=== PATIENT | female | born 1980 | race African-American/Black ===

== ENCOUNTER 2018-08-12 15:16 | Inpatient (IN) | payer OTHER ==
[2018-08-12] MEDS ORDERED: SODIUM CHLORIDE 0.9% 1000 ML INFUS.BAG IV ONE (16:43)
[2018-08-12] MEDS ORDERED: ACETAMINOPHEN 1000 MG/100 ML VIAL (NON FORMULARY) IVPB ONE (16:43)
[2018-08-12] MEDS ORDERED: ALBUTEROL SO4 2.5/IPRATROPIUM 0.5 INH SOL 3 ML VIAL.NEB. NEB ONE ×3 (16:44→17:01)
[2018-08-12] MEDS ORDERED: ACETAMINOPHEN INJECTION 100 ML IVPB ONE (16:54)
[2018-08-12 17:58] LABS: BASO % 0.6 % (0-2.0); EOS % 0.1 % (0-4.5); HEMATOCRIT 31.8 % (32.4-45.2); HEMOGLOBIN 10.7 GM/dL (10.7-15.3); LYMPH % 15.9 % (8-40); MCH 26.5 pg (25.7-33.7); MCHC 33.7 g/dl (32.0-36.0); MEAN CELL VOLUME 78.6 fl (80-96); MEAN PLT VOLUME 7.9 fl (7.5-11.1); MONO % 21.1 % (3.8-10.2); NEUT % 62.3 % (42.8-82.8); PLATELET COUNT 356 K/MM3 (134-434); RBC 4.04 M/mm3 (3.60-5.2); RDW 25.5 % (11.6-15.6); WHITE BLOOD COUNT 6.5 K/mm3 (4.0-10.0)
[2018-08-12 18:11] LABS: INR 1.22 (0.83-1.09); PROTHROMBIN TIME (PATIENT) 14.4 SEC (9.7-13.0)
[2018-08-12] MEDS ORDERED: METOCLOPRAMIDE HCL INJECTION 10 MG/2 ML VIAL IVPB ONE (18:13)
[2018-08-12 18:14] LABS: ACTIVATED PTT 29.6 SECONDS (25.2-36.5)
[2018-08-12] MEDS ORDERED: METOCLOPRAMIDE HCL INJECTION 10 MG/2 ML VIAL ONE (18:15)
--- NOTE | 2018-08-12 18:18 | PDOC ---
History of Present Illness - General Chief Complaint: Shortness of Breath Stated Complaint: Shortness of Breath Time Seen by Provider: 08/12/18 16:43 History Source: Patient, Snf Records Exam Limitations: No Limitations - History of Present Illness Initial Comments: 08/12/18 18:15 The patient is a 37F with a PMH of hodgkins lymphoma (currently on chemo and s/ p BMT) who presents to the ER with 3 days of shortness of breath. She states that the shortness of breath started 3 days ago and has worsened to her presentation today. The patient states that she's had intermittent chills for 3 days. She denies a cough. She also admits to a headache which she describes as sharp, behind her R eye, worse with bright lights. She denies nausea, vomiting, CP, abdominal pain, dysuria, rashes, or swelling. Past History - Past Medical History Allergies/Adverse Reactions: Allergies Allergy/AdvReac Type Severity Reaction Status Date / Time bleomycin Allergy Verified 08/12/18 16:26 nut - unspecified Allergy Verified 08/12/18 16:27 peanut Allergy Verified 08/12/18 16:27 rivaroxaban Allergy Verified 08/12/18 16:27 Home Medications: Ambulatory Orders Gabapentin Liquid [Neurontin Oral Liquid -] 250 mg PEG TID 08/12/18 Lidocaine 5% Top. Ointment [Xylocaine 5% Top. Ointment -] 1 applic TP BID Loperamide HCl [Imodium A-D] 2 mg PEG DAILY 08/12/18 Potassium Chloride [Klor-Con] 20 meq GT DAILY 08/12/18 Ruxolitinib Phosphate [Jakafi] 5 mg GT BID 08/12/18 levETIRAcetam [levETIRAcetam ORAL SUSPENSION] 500 mg GT BID 08/12/18 Dexamethasone Liquid - [Decadron Liquid -] 0.5 mg PO DAILY ml 08/30/18 Guaifenesin Dm [Robitussin Dm -] 10 ml PO Q6H PRN cup 08/30/18 Insulin Sliding Scale [Novolog Vial Sliding Scale -] 1 vial SQ ACHS units 08/30 Metoprolol Tartrate [Lopressor -] 25 mg PO BID tablet 08/30/18 Naph,Mb-Db/K pH,Mbdb [PHOS-NaK PACKET -] 1 packet PO BID pow 08/30/18 Polyvinyl Alcohol [Artificial Tears] 1 drop OU Q6H PRN drops 08/30/18 Albuterol 0.083% Nebulizer Stephanie [Ventolin 0.083% Nebulizer Soln -] 1 amp NEB Q6H PRN amp 09/06/18 Amino Acids/Protein Hydrolys [Prosource No Carb Liquid Pkt] 30 ml PO BID@0800, 1730 packet 09/06/18 Lidocaine 5% Patch [Lidoderm -] 1 patch TP DAILY patch 09/06/18 Nitroglycerin Sublingual [Nitrostat -] 0.4 mg SL Q5M PRN tab 09/06/18 Warfarin Na [Coumadin -] 2.5 mg PO SUMOWEFRSA tablet 09/06/18 Warfarin Na [Coumadin -] 5 mg PO TUTH tablet 09/06/18 oxyCODONE HCL [Roxicodone -] 5 mg PO Q6H PRN #120 tablet MDD 4 09/06/18 Cancer: Yes (hodkin lymphoma) Cardiac Disorders: Yes (afib) CVA: Yes (hemiplegia/hemiparesis) COPD: No Psychiatric Problems: Yes (depression) - Suicide/Smoking/Psychosocial Hx Smoking History: Never smoked Have you smoked in the past 12 months: No Information on smoking cessation initiated: No Hx Alcohol Use: No Drug/Substance Use Hx: No Review of Systems - Review of Systems Able to Perform ROS?: Yes Comments:: 08/12/18 19:04 GENERAL/CONSTITUTIONAL: Positive for chills. No fever. No weakness. HEAD, EYES, EARS, NOSE AND THROAT: No change in vision. No ear pain or discharge. No sore throat. CARDIOVASCULAR: No chest pain, palpitations, or lightheadedness. RESPIRATORY: Positive for shortness of breath. No cough, wheezing, or hemoptysis. GASTROINTESTINAL: No nausea, vomiting, diarrhea, constipation, or abdominal pain. GENITOURINARY: No dysuria, frequency, hematuria, or change in urination. MUSCULOSKELETAL: No joint or muscle swelling or pain. No neck or back pain. SKIN: No rash or lesions. NEUROLOGIC: No headache, numbness, tingling, focal weakness, loss of consciousness, or change in strength/sensation. Is the patient limited [place] proficient: No *Physical Exam - Vital Signs Last Vital Signs Temp Pulse Resp BP Pulse Ox 101.9 F H 136 H 18 105/80 100 08/12/18 15:30 08/12/18 15:30 08/12/18 15:30 08/12/18 15:30 08/12/18 15:30 - Physical Exam Comments: 08/12/18 19:06 GENERAL: Well developed, well nourished. Awake and alert. No acute distress. Thin, ill-appearing. HEENT: Normocephalic, atraumatic. Hearing grossly normal. Moist mucous membranes. PERRLA, EOMI. No conjunctival pallor. NECK: Supple. Full ROM. No JVD. Carotid pulses 2+ and symmetric, without bruits. No thyromegaly. No lymphadenopathy. CARDIOVASCULAR: Regular rate and rhythm. No murmurs, rubs, or gallops. Distal pulses are 2+ and symmetric. PULMONARY: Mild respiratory distress. Lungs have diffuse coarse breath sounds. ABDOMINAL: Soft. Non-tender. Non-distended. No rebound or guarding. GENITOURINARY: No CVA tenderness bilaterally. MUSCULOSKELETAL: Normal range of motion at all joints. No bony deformities or tenderness. EXTREMITIES: No cyanosis. No clubbing. No edema. No calf tenderness or swelling. SKIN: Warm and dry. Normal capillary refill. No rashes. No jaundice. NEUROLOGICAL: Alert, awake, appropriate. Cranial nerves 2-12 grossly intact. Normal speech. PSYCHIATRIC: Cooperative. Good eye contact. Appropriate mood and affect. Moderate Sedation - Procedure Monitoring Vital Signs: Procedure Monitoring Vital Signs Temperature 101.9 F H 08/12/18 15:30 Pulse Rate 136 H 08/12/18 15:30 Respiratory Rate 18 08/12/18 15:30 Blood Pressure 105/80 08/12/18 15:30 O2 Sat by Pulse Oximetry (%) 100 08/12/18 15:30 Heart Score/ECG Review #1 General ECG Interpretation: Sinus Rhythm, Normal Intervals, No acute ischemic changes Compared to previous ECG there are: Previous ECG unavail 08/12/18 19:09 Sinus tach vent rate 125 HI 172 QRS 68 QTc 413 No STD or ADEOAL No signs of acute ischemia No priors ED Treatment Course - LABORATORY CBC & Chemistry Diagram: 09/11/18 06:30 09/06/18 05:40 - ADDITIONAL ORDERS Additional order review: Laboratory Results 08/12/18 08/12/1808/12/19 17:40 17:40 17:40 PT with INR INR PTT (Actin FS) VBG pH POC VBG pCO2 POC VBG pO2 Mixed VBG HCO3 Sodium Cancelled Potassium Cancelled Chloride Cancelled Carbon Dioxide Cancelled Anion Gap Cancelled BUN Cancelled Creatinine Cancelled Creat Clearance w eGFR Cancelled Random Glucose Cancelled Calcium Cancelled Total Bilirubin Cancelled AST Cancelled ALT Cancelled Alkaline Phosphatase Cancelled Troponin I Cancelled Cancelled Total Protein Cancelled Albumin Cancelled Serum , Qual Cancelled 08/12/18 08/12/18 17:40 17:40 PT with INR 14.40 H INR 1.22 H PTT (Actin FS) 29.6 VBG pH Cancelled POC VBG pCO2 Cancelled POC VBG pO2 Cancelled Mixed VBG HCO3 Cancelled Sodium Potassium Chloride Carbon Dioxide Anion Gap BUN Creatinine Creat Clearance w eGFR Random Glucose Calcium Total Bilirubin AST ALT Alkaline Phosphatase Troponin I Total Protein Albumin Serum , Qual 08/12/18 17:40 RBC 4.04 MCV 78.6 L MCHC 33.7 RDW 25.5 H MPV 7.9 Neutrophils % 62.3 Lymphocytes % 15.9 Monocytes % 21.1 H Eosinophils % 0.1 Basophils % 0.6 - RADIOLOGY Radiology Studies Ordered: Category Date Time Status CHEST X-RAY PORTABLE* [RAD] Stat Radiology 08/12/18 16:43 Ordered - Medications Given in the ED: ED Medications Discontinued Medications Generic Name Dose Route Start Last Admin Trade Name Freq PRN Reason Stop Dose Admin Acetaminophen 1,000 mg 08/12/18 16:43 08/12/18 17:37 Ofirmev Injection - IVPB 08/12/18 16:44 1,000 mg ONCE ONE Administration Albuterol/Ipratropium 3 amp 08/12/18 16:44 08/12/18 17:00 Duoneb - NEB 08/12/18 16:45 3 amp ONCE ONE Administration Sodium Chloride 1,000 ml 08/12/18 16:43 08/12/18 17:37 Normal Saline - IV 08/12/18 16:44 1,000 ml ONCE ONE Administration Medical Decision Making - Medical Decision Making 08/12/18 19:09 The patient is a 37F with a PMH of hodgkins lymphoma, currently on chemo and is s/p BMT who presents to the ER with 3 days of worsening SOB with chills. Concern for PNA. Also concern for PE as pt is in a hypercoagulable state with a subtherapuetic INR. Possible (but low likelihood) of meningitis but pt has supple neck with full ROM but does complain of a h/a. Pt is not urinating and refuses catheterization. Will cover with broad spectrum abx, give fluids, tylenol for fever and headache, and reglan for headache. CBC WNL. EKG unremarkable. Pending CMP, trop. Pt signed out to Dr. Fermin for further evaluation. *DC/Admit/Observation/Transfer Diagnosis at time of Disposition: Influenza A - Discharge Dispostion Condition at time of disposition: Stable - Referrals - Patient Instructions - Post Discharge Activity
[2018-08-12 18:20] LABS: ARTERIAL BLD GAS O2 SATURATION 98.3 % (90-98.9); ARTERIAL BLOOD GAS BASE EXCESS -0.1 meq/l (-2-2); ARTERIAL BLOOD GAS PCO2 40.4 mmHg (35-45); CARBOXYHEMOGLOBIN 0.8 gm% (0.5-2.0)
[2018-08-12 18:22] LABS: ALLENS TEST POSITIVE
[2018-08-12] MEDS ORDERED: VANCOMYCIN 1,000 MG in DEXTROSE 5%-WATER - 250 ML IVPB ONE (18:48)
[2018-08-12] MEDS ORDERED: PIPERACILLIN/TAZOB 4.5 GM 4.5 GM in DEXTROSE 5%-WATER 100 ML IVPB ONE (18:48)
[2018-08-12] MEDS ORDERED: PIPERACILLIN/TAZOB 4.5 GM 4.5 GM/100 ML BAG IVPB ONE (18:59)
[2018-08-12] MEDS ORDERED: VANCOMYCIN 1 GRAM (PRE-DOCKED) 1,000 MG/250 ML BAG IVPB ONE (18:59)
[2018-08-12 19:01] LABS: ANISOCYTOSIS 2+; TARGET CELLS 1+
--- NOTE | 2018-08-12 19:43 | PDOC ---
Attending Attestation - Resident Resident Name: Manuel Lobo - ED Attending Attestation I have performed the following: I have examined & evaluated the patient, The case was reviewed & discussed with the resident, I agree w/resident's findings & plan, Exceptions are as noted - HPI HPI: 08/12/18 19:41 The patient is a 37 year old female, [facility] resident, with a significant PMH of hodgkins lymphoma, BMT, CVA (on coumadin), who presents to the emergency department with 3 days of worsening SOB. Pt states she has felt sick with fevers and poor appetite for 3 days as well. States she has been compliant with her medications. The patient denies chest pain, cough, headache and dizziness. Denies nausea, vomit, diarrhea and constipation. Denies dysuria, frequency, urgency and hematuria. Allergies: bleomycin, nut, peanut, rivaroxaban Social history: None reported PCP: Dr. Floyd - Physicial Exam PE: 08/12/18 19:42 GENERAL: Awake, alert, and fully oriented, in no acute distress. Non toxic. EYES: PERRLA, EOMI, sclera anicteric, conjunctiva clear ENT: Auricles normal inspection, hearing grossly normal, nares patent, oropharynx clear without exudates. Moist mucosa NECK: Normal ROM, supple, no lymphadenopathy, JVD, or masses LUNGS: Breath sounds equal, course BS b/l. No wheezes, and no crackles HEART: Regular rate and rhythm, normal S1 and S2, no murmurs, rubs or gallops ABDOMEN: Soft, nontender, normoactive bowel sounds. No guarding, no rebound. No masses EXTREMITIES: Normal range of motion, no edema. No cords, erythema, or tenderness NEUROLOGICAL: Normal speech, cranial nerves intact, equal strength and sensation b/l SKIN: Warm, Dry, normal turgor, no rashes or lesions noted. - Medical Decision Making 08/12/18 23:39 37yo F with MMP including lymphoma, BMT presents to the ED from [place] with SOB, fever, tachycardia. Flu+, pt given tamiflu. INR found to be subtherapeutic, CTA was obtained to r/o PE, neg for PE but showed infiltrates. Pt was covered empirically and admitted for further mgmt. Heart Score/ECG Review #1 02/22/19 19:43 Twelve-lead EKG was performed and reviewed by me. Sinus tachycardia, rate 122. Normal axis. No ST elevations.
[2018-08-12 19:50] LABS: MAGNESIUM 1.6 mg/dL (1.8-2.4)
[2018-08-12] MEDS ORDERED: OSELTAMIVIR PHOSPHATE 75 MG CAPSULE PO ONE (20:15)
[2018-08-12] MEDS ORDERED: OSELTAMIVIR PHOSPHATE 75 MG CAPSULE ONE (20:32)
--- NOTE | 2018-08-12 20:37 | PDOC ---
*Physical Exam - Vital Signs Last Vital Signs Temp Pulse Resp BP Pulse Ox 101.4 F H 111 H 18 143/97 96 08/13/18 01:00 08/13/18 01:00 08/13/18 01:00 08/13/18 01:00 08/13/18 01:00 <Norma Luong - Last Filed: 08/13/18 01:15> - Vital Signs Last Vital Signs Temp Pulse Resp BP Pulse Ox 101.9 F H 114 H 18 98/58 L 96 08/12/18 15:30 08/12/18 20:29 08/12/18 20:29 08/12/18 20:29 08/12/18 20:29 <Carlos Fermin - Last Filed: 08/13/18 05:48> ED Treatment Course - LABORATORY CBC & Chemistry Diagram: 08/12/18 17:40 08/12/18 20:44 - ADDITIONAL ORDERS Additional order review: Laboratory Results 08/12/18 08/12/18 08/12/18 20:44 19:41 18:46 PT with INR INR PTT (Actin FS) Anticoagulation Therapy Puncture Site ABG pH ABG pCO2 at Pt Temp ABG pO2 at Pt Temp ABG HCO3 ABG O2 Sat (Measured) ABG O2 Content ABG Base Excess Regis Test VBG pH POC VBG pCO2 POC VBG pO2 Mixed VBG HCO3 Carboxyhemoglobin Methemoglobin O2 Delivery Device Oxygen Flow Rate Vent Mode Vent Rate Mechanical Rate Pressure Support Vent Sodium 136 Potassium 3.5 Chloride 102 Carbon Dioxide 24 Anion Gap 11 BUN 19 H Creatinine 0.2 L Creat Clearance w eGFR > 60 Random Glucose 128 H Lactic Acid Calcium 8.2 L Magnesium 1.6 L Total Bilirubin 0.6 AST 42 H ALT 50 Alkaline Phosphatase 243 H Creatine Kinase 14 L Troponin I < 0.02 B-Natriuretic Peptide 570.0 H Total Protein 6.1 L Albumin 3.2 L Serum , Qual 08/12/18 08/12/18 08/12/18 18:46 18:10 17:40 PT with INR INR PTT (Actin FS) Anticoagulation Therapy No Result Required. Puncture Site Right radial ABG pH 7.40 ABG pCO2 at Pt Temp 40.4 ABG pO2 at Pt Temp 114.0 H ABG HCO3 24.2 ABG O2 Sat (Measured) 98.3 ABG O2 Content 12.0 L ABG Base Excess -0.1 Regis Test Positive VBG pH POC VBG pCO2 POC VBG pO2 Mixed VBG HCO3 Carboxyhemoglobin 0.8 Methemoglobin 0.7 O2 Delivery Device Nasal cannula Oxygen Flow Rate 2l Vent Mode No Result Required. Vent Rate No Result Required. Mechanical Rate No Result Required. Pressure Support Vent No Result Required. Sodium Potassium Chloride Carbon Dioxide Anion Gap BUN Creatinine Creat Clearance w eGFR Random Glucose Lactic Acid Calcium Magnesium Total Bilirubin AST ALT Alkaline Phosphatase Creatine Kinase Troponin I Cancelled B-Natriuretic Peptide Total Protein Albumin Serum , Qual Negative 08/12/18 08/12/18 08/12/18 17:40 17:40 17:40 PT with INR INR PTT (Actin FS) Anticoagulation Therapy Puncture Site ABG pH ABG pCO2 at Pt Temp ABG pO2 at Pt Temp ABG HCO3 ABG O2 Sat (Measured) ABG O2 Content ABG Base Excess Regis Test VBG pH POC VBG pCO2 POC VBG pO2 Mixed VBG HCO3 Carboxyhemoglobin Methemoglobin O2 Delivery Device Oxygen Flow Rate Vent Mode Vent Rate Mechanical Rate Pressure Support Vent Sodium Cancelled Potassium Cancelled Chloride Cancelled Carbon Dioxide Cancelled Anion Gap Cancelled BUN Cancelled Creatinine Cancelled Creat Clearance w eGFR Cancelled Random Glucose Cancelled Lactic Acid 1.2 Calcium Cancelled Magnesium Total Bilirubin Cancelled AST Cancelled ALT Cancelled Alkaline Phosphatase Cancelled Creatine Kinase Troponin I Cancelled B-Natriuretic Peptide Total Protein Cancelled Albumin Cancelled Serum , Qual Cancelled 08/12/18 08/12/18 17:40 17:40 PT with INR 14.40 H INR 1.22 H PTT (Actin FS) 29.6 Anticoagulation Therapy Puncture Site ABG pH ABG pCO2 at Pt Temp ABG pO2 at Pt Temp ABG HCO3 ABG O2 Sat (Measured) ABG O2 Content ABG Base Excess Regis Test VBG pH Cancelled POC VBG pCO2 Cancelled POC VBG pO2 Cancelled Mixed VBG HCO3 Cancelled Carboxyhemoglobin Methemoglobin O2 Delivery Device Oxygen Flow Rate Vent Mode Vent Rate Mechanical Rate Pressure Support Vent Sodium Potassium Chloride Carbon Dioxide Anion Gap BUN Creatinine Creat Clearance w eGFR Random Glucose Lactic Acid Calcium Magnesium Total Bilirubin AST ALT Alkaline Phosphatase Creatine Kinase Troponin I B-Natriuretic Peptide Total Protein Albumin Serum , Qual 08/12/18 17:40 RBC 4.04 MCV 78.6 L MCHC 33.7 RDW 25.5 H MPV 7.9 Neutrophils % 62.3 Lymphocytes % 15.9 Monocytes % 21.1 H Eosinophils % 0.1 Basophils % 0.6 - Medications Given in the ED: ED Medications Discontinued Medications Generic Name Dose Route Start Last Admin Trade Name Mounika PRN Reason Stop Dose Admin Acetaminophen 1,000 mg 08/12/18 16:43 08/12/18 17:37 Ofirmev Injection - IVPB 08/12/18 16:44 1,000 mg ONCE ONE Administration Acetaminophen 650 mg 08/13/18 00:44 08/13/18 00:59 Tylenol - PO 08/13/18 00:45 650 mg ONCE ONE Administration Albuterol/Ipratropium 3 amp 08/12/18 16:44 08/12/18 17:00 Duoneb - NEB 08/12/18 16:45 3 amp ONCE ONE Administration Vancomycin HCl 1,000 mg/ 250 mls @ 250 mls/hr 08/12/18 18:48 08/12/18 20:28 Dextrose IVPB 08/12/18 19:47 250 mls/hr ONCE ONE Administration Protocol Piperacillin Sod/Tazobactam 100 mls @ 200 mls/hr 08/12/18 18:48 08/12/18 19: 57 Sod 4.5 gm/ Dextrose IVPB 08/12/18 19:17 200 mls/hr ONCE ONE Administration Protocol Metoclopramide HCl 10 mg 08/12/18 18:13 08/12/18 18:25 Reglan Injection - IVPB 08/12/18 18:14 10 mg ONCE ONE Administration Oseltamivir Phosphate 75 mg 08/12/18 20:15 08/12/18 20:48 Tamiflu - PO 08/12/18 20:16 75 mg ONCE ONE Administration Sodium Chloride 1,000 ml 08/12/18 16:43 08/12/18 17:37 Normal Saline - IV 08/12/18 16:44 1,000 ml ONCE ONE Administration <Norma Luong - Last Filed: 08/13/18 01:15> - LABORATORY CBC & Chemistry Diagram: 08/12/18 17:40 08/12/18 20:44 - ADDITIONAL ORDERS Additional order review: Laboratory Results 08/12/18 08/12/18 08/12/18 19:41 18:46 18:46 PT with INR INR PTT (Actin FS) Anticoagulation Therapy Puncture Site ABG pH ABG pCO2 at Pt Temp ABG pO2 at Pt Temp ABG HCO3 ABG O2 Sat (Measured) ABG O2 Content ABG Base Excess Regis Test VBG pH POC VBG pCO2 POC VBG pO2 Mixed VBG HCO3 Carboxyhemoglobin Methemoglobin O2 Delivery Device Oxygen Flow Rate Vent Mode Vent Rate Mechanical Rate Pressure Support Vent Sodium Potassium Chloride Carbon Dioxide Anion Gap BUN Creatinine Creat Clearance w eGFR Random Glucose Lactic Acid Calcium Magnesium 1.6 L Total Bilirubin AST ALT Alkaline Phosphatase Creatine Kinase 14 L Troponin I < 0.02 B-Natriuretic Peptide 570.0 H Total Protein Albumin Serum , Qual Negative 08/12/18 08/12/18 08/12/18 18:10 17:40 17:40 PT with INR INR PTT (Actin FS) Anticoagulation Therapy No Result Required. Puncture Site Right radial ABG pH 7.40 ABG pCO2 at Pt Temp 40.4 ABG pO2 at Pt Temp 114.0 H ABG HCO3 24.2 ABG O2 Sat (Measured) 98.3 ABG O2 Content 12.0 L ABG Base Excess -0.1 Regis Test Positive VBG pH POC VBG pCO2 POC VBG pO2 Mixed VBG HCO3 Carboxyhemoglobin 0.8 Methemoglobin 0.7 O2 Delivery Device Nasal cannula Oxygen Flow Rate 2l Vent Mode No Result Required. Vent Rate No Result Required. Mechanical Rate No Result Required. Pressure Support Vent No Result Required. Sodium Potassium Chloride Carbon Dioxide Anion Gap BUN Creatinine Creat Clearance w eGFR Random Glucose Lactic Acid Calcium Magnesium Total Bilirubin AST ALT Alkaline Phosphatase Creatine Kinase Troponin I Cancelled B-Natriuretic Peptide Total Protein Albumin Serum , Qual Cancelled 08/12/18 08/12/18 08/12/18 17:40 17:40 17:40 PT with INR INR PTT (Actin FS) Anticoagulation Therapy Puncture Site ABG pH ABG pCO2 at Pt Temp ABG pO2 at Pt Temp ABG HCO3 ABG O2 Sat (Measured) ABG O2 Content ABG Base Excess Regis Test VBG pH Cancelled POC VBG pCO2 Cancelled POC VBG pO2 Cancelled Mixed VBG HCO3 Cancelled Carboxyhemoglobin Methemoglobin O2 Delivery Device Oxygen Flow Rate Vent Mode Vent Rate Mechanical Rate Pressure Support Vent Sodium Cancelled Potassium Cancelled Chloride Cancelled Carbon Dioxide Cancelled Anion Gap Cancelled BUN Cancelled Creatinine Cancelled Creat Clearance w eGFR Cancelled Random Glucose Cancelled Lactic Acid 1.2 Calcium Cancelled Magnesium Total Bilirubin Cancelled AST Cancelled ALT Cancelled Alkaline Phosphatase Cancelled Creatine Kinase Troponin I Cancelled B-Natriuretic Peptide Total Protein Cancelled Albumin Cancelled Serum , Qual 08/12/18 17:40 PT with INR 14.40 H INR 1.22 H PTT (Actin FS) 29.6 Anticoagulation Therapy Puncture Site ABG pH ABG pCO2 at Pt Temp ABG pO2 at Pt Temp ABG HCO3 ABG O2 Sat (Measured) ABG O2 Content ABG Base Excess Regis Test VBG pH POC VBG pCO2 POC VBG pO2 Mixed VBG HCO3 Carboxyhemoglobin Methemoglobin O2 Delivery Device Oxygen Flow Rate Vent Mode Vent Rate Mechanical Rate Pressure Support Vent Sodium Potassium Chloride Carbon Dioxide Anion Gap BUN Creatinine Creat Clearance w eGFR Random Glucose Lactic Acid Calcium Magnesium Total Bilirubin AST ALT Alkaline Phosphatase Creatine Kinase Troponin I B-Natriuretic Peptide Total Protein Albumin Serum , Qual 08/12/18 17:40 RBC 4.04 MCV 78.6 L MCHC 33.7 RDW 25.5 H MPV 7.9 Neutrophils % 62.3 Lymphocytes % 15.9 Monocytes % 21.1 H Eosinophils % 0.1 Basophils % 0.6 - Medications Given in the ED: ED Medications Discontinued Medications Generic Name Dose Route Start Last Admin Trade Name Freq PRN Reason Stop Dose Admin Acetaminophen 1,000 mg 08/12/18 16:43 08/12/18 17:37 Ofirmev Injection - IVPB 08/12/18 16:44 1,000 mg ONCE ONE Administration Albuterol/Ipratropium 3 amp 08/12/18 16:44 08/12/18 17:00 Duoneb - NEB 08/12/18 16:45 3 amp ONCE ONE Administration Vancomycin HCl 1,000 mg/ 250 mls @ 250 mls/hr 08/12/18 18:48 08/12/18 20:28 Dextrose IVPB 08/12/18 19:47 250 mls/hr ONCE ONE Administration Protocol Piperacillin Sod/Tazobactam 100 mls @ 200 mls/hr 08/12/18 18:48 08/12/18 19: 57 Sod 4.5 gm/ Dextrose IVPB 08/12/18 19:17 200 mls/hr ONCE ONE Administration Protocol Metoclopramide HCl 10 mg 08/12/18 18:13 08/12/18 18:25 Reglan Injection - IVPB 08/12/18 18:14 10 mg ONCE ONE Administration Sodium Chloride 1,000 ml 08/12/18 16:43 08/12/18 17:37 Normal Saline - IV 08/12/18 16:44 1,000 ml ONCE ONE Administration <Carlos Fermin - Last Filed: 08/13/18 05:48> Medical Decision Making - Medical Decision Making 08/13/18 01:15 Patient Name: GIDEON MCKEON THIS IS A PRELIMINARY REPORT FROM IMAGING SCREED PERSON DATE OF SERVICE: 2018-08-12 23:11:25 IMAGES: [id number] EXAM: CTA CHEST No pulmonary embolism. No aortic dissection or aneurysm. No pneumonia or pleural effusions. Partial atelectasis lower lobes. Right internal jugular venous catheter tip in lower SVC. Percutaneous gastrostomy tube. Subcutaneous edema. Small cystic foci left kidney. <Norma Luong - Last Filed: 08/13/18 01:15> - Medical Decision Making Patient signed out to me from day team pending a CMP, a flu swab and a CTA. Flu swab came back positive for influenza A - Will start treatment with Tamiflu and admit patient. CTA showed no signs of PE. - Will admit patient for further care. <Carlos Fermin - Last Filed: 08/13/18 05:48> *DC/Admit/Observation/Transfer <Norma Luong - Last Filed: 08/13/18 01:15> - Discharge Dispostion Decision to Admit order: Yes <Carlos Fermin - Last Filed: 08/13/18 05:48> Diagnosis at time of Disposition: Influenza A - Discharge Dispostion Condition at time of disposition: Stable
[2018-08-12 21:09] LABS: ALBUMIN 3.2 g/dl (3.4-5.0); ALK PHOS 243 U/L (45-117); ANION GAP 11 MMOL/L (8-16); BILIRUBIN,TOTAL 0.6 mg/dL (0.2-1); BLOOD UREA NITROGEN 19 mg/dL (7-18); CALCIUM 8.2 mg/dL (8.5-10.1); CHLORIDE 102 mmol/L (98-107); CO2 24 mmol/L (21-32); CREATININE 0.2 mg/dL (0.55-1.3); GLUCOSE,RANDOM 128 mg/dL (74-106); POTASSIUM 3.5 mmol/L (3.5-5.1); SGOT/AST 42 U/L (15-37); SGPT/ALT 50 U/L (13-61); SODIUM 136 mmol/L (136-145); TOT PROT 6.1 g/dl (6.4-8.2)
[2018-08-12] MEDS ORDERED: AZITHROMYCIN IVPB 500 MG in DEXTROSE 5%-WATER - 250 ML IVPB ONE (23:39)
[2018-08-12] MEDS ORDERED: WARFARIN NA 2.5 MG TABLET (FP) PO SCH (23:45)
--- NOTE | 2018-08-12 23:59 | HP ---
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 She reports that her roommate was sick recently. Patient with new onset of cough , found to be productive with yellow sputum when I saw her. ER course was notable for: (1) chest CTA (2) vancomycin, zosyn (3) azithromycin Recent Travel: none PAST MEDICAL HISTORY: Hodgkins Lymphoma, CVA PAST SURGICAL HISTORY: BMT x2 Social History: Smoking: no Alcohol: no Drugs: no Family History: none reported Allergies bleomycin Allergy (Verified 08/12/18 16:26) nut - unspecified Allergy (Verified 08/12/18 16:27) peanut Allergy (Verified 08/12/18 16:27) rivaroxaban Allergy (Verified 08/12/18 16:27) HOME MEDICATIONS: Home Medications Medication Instructions Recorded Cholecalciferol (Vitamin D3) 5,000 unit PEG WEEKLY 08/12/18 [Vitamin D3] Dexamethasone [Decadron] 5 ml PO DAILY 08/12/18 Dextran/Hypromellose/Glycerin 1 drop OU TID 08/12/18 [Genteal Tears 0.1%-0.2%-0.3%] Erythromycin Oral Suspension 6.3 ml PEG TID 08/12/18 [Eryped Oral Suspension -] Famotidine 20 mg PEG BID 08/12/18 Gabapentin Liquid [Neurontin Oral 250 mg PEG TID 08/12/18 Liquid -] Hydrophilic Ointment [Dermafix] 1 applic TP BID 08/12/18 Lidocaine 5% Top. Ointment 1 applic TP BID 08/12/18 [Xylocaine 5% Top. Ointment] Loperamide HCl [Imodium A-D] 2 mg PEG DAILY 08/12/18 Potassium Chloride [Klor-Con] 20 meq GT DAILY 08/12/18 Ruxolitinib Phosphate [Jakafi] 5 mg GT BID 08/12/18 Warfarin Na [Coumadin] 2.5 mg PO ASDIR 08/12/18 Warfarin Sodium [Coumadin] 4 mg PO ASDIR 08/12/18 levETIRAcetam [levETIRAcetam ORAL 500 mg GT BID 08/12/18 SUSPENSION] REVIEW OF SYSTEMS CONSTITUTIONAL: Absent: weight change present- fever, chills, diaphoresis, generalized weakness, malaise, loss of appetite, HEENT: Absent: nasal congestion, throat pain, throat swelling, difficulty swallowing, mouth swelling, ear pain, eye pain, visual changes present- rhinorrhea, CARDIOVASCULAR: Absent: chest pain, syncope, palpitations, irregular heart rate, lightheadedness , peripheral edema RESPIRATORY: Absent: orthopnea, wheezing, stridor, hemoptysis present- cough, shortness of breath, dyspnea with exertion, GASTROINTESTINAL: Absent: abdominal pain, abdominal distension, nausea, vomiting, diarrhea, constipation, melena, hematochezia GENITOURINARY: Absent: dysuria, frequency, urgency, hesitancy, hematuria, flank pain, genital pain MUSCULOSKELETAL: Absent: myalgia, arthralgia, joint swelling, back pain, neck pain SKIN: Absent: rash, itching, pallor HEMATOLOGIC/IMMUNOLOGIC: Absent: easy bleeding, easy bruising, lymphadenopathy, frequent infections ENDOCRINE: Absent: unexplained weight gain, unexplained weight loss, heat intolerance, cold intolerance NEUROLOGIC: Absent: headache, focal weakness or paresthesias, dizziness, unsteady gait, seizure, mental status changes, bladder or bowel incontinence PSYCHIATRIC: Absent: anxiety, depression, suicidal or homicidal ideation, hallucinations. PHYSICAL EXAMINATION Vital Signs - 24 hr 08/12/18 08/12/18 15:30 20:29 Temperature 101.9 F H Pulse Rate 136 H Pulse Rate [ 114 H Apical] Respiratory 18 18 Rate Blood Pressure 105/80 Blood Pressure 98/58 L [Left Arm] O2 Sat by Pulse 100 96 Oximetry (%) GENERAL: Awake, alert, and fully oriented, in no acute distress. HEAD: Normal with no signs of trauma. EYES: Pupils equal, round and reactive to light, extraocular movements intact, sclera anicteric, conjunctiva clear. No lid lag. EARS, NOSE, THROAT: Ears normal, nares patent, oropharynx clear without exudates. + yellowish secretions present NECK: Normal range of motion, supple without lymphadenopathy, JVD, or masses, right sided IJ CVP - present for about one year LUNGS: coarse breath sounds, rales appreciated b/l HEART: Regular rate and rhythm, normal S1 and S2 without murmur, rub or gallop. ABDOMEN: Soft, nontender, not distended, normoactive bowel sounds, no guarding, no rebound, no masses. No hepatomegaly or splenomegaly. MUSCULOSKELETAL: Normal range of motion at all joints. No bony deformities or tenderness. No CVA tenderness. UPPER EXTREMITIES: 2+ pulses, warm, well-perfused. No cyanosis. No clubbing. No peripheral edema. LOWER EXTREMITIES: 2+ pulses, warm, well-perfused. No calf tenderness. No peripheral edema. NEUROLOGICAL: Cranial nerves II-XII intact. Normal speech. Normal gait. PSYCHIATRIC: Cooperative. Good eye contact. Appropriate mood and affect. SKIN: Warm, dry, normal turgor, no rashes or lesions noted, normal capillary refill. Laboratory Results - last 24 hr 08/12/18 08/12/18 08/12/18 17:40 17:40 17:40 WBC 6.5 RBC 4.04 Hgb 10.7 Hct 31.8 L MCV 78.6 L MCH 26.5 MCHC 33.7 RDW 25.5 H Plt Count 356 MPV 7.9 Absolute Neuts (auto) 4.1 Neutrophils % 62.3 Neutrophils % (Manual) 62.0 Band Neutrophils % 8.0 Lymphocytes % 15.9 Lymphocytes % (Manual) 9.0 Monocytes % 21.1 H Monocytes % (Manual) 16 H Eosinophils % 0.1 Eosinophils % (Manual) 0.0 Basophils % 0.6 Basophils % (Manual) 0.0 Nucleated RBC % 0 Anisocytosis 2+ Target Cells 1+ PT with INR 14.40 H INR 1.22 H PTT (Actin FS) 29.6 Anticoagulation Therapy Puncture Site ABG pH ABG pCO2 at Pt Temp ABG pO2 at Pt Temp ABG HCO3 ABG O2 Sat (Measured) ABG O2 Content ABG Base Excess Regis Test VBG pH Cancelled POC VBG pCO2 Cancelled POC VBG pO2 Cancelled Mixed VBG HCO3 Cancelled Carboxyhemoglobin Methemoglobin O2 Delivery Device Oxygen Flow Rate Vent Mode Vent Rate Mechanical Rate Pressure Support Vent Sodium Potassium Chloride Carbon Dioxide Anion Gap BUN Creatinine Creat Clearance w eGFR Random Glucose Lactic Acid Calcium Magnesium Total Bilirubin AST ALT Alkaline Phosphatase Creatine Kinase Troponin I B-Natriuretic Peptide Total Protein Albumin Serum , Qual Influenza A (Rapid) Influenza B (Rapid) 08/12/18 08/12/18 08/12/18 17:40 17:40 17:40 WBC RBC Hgb Hct MCV MCH MCHC RDW Plt Count MPV Absolute Neuts (auto) Neutrophils % Neutrophils % (Manual) Band Neutrophils % Lymphocytes % Lymphocytes % (Manual) Monocytes % Monocytes % (Manual) Eosinophils % Eosinophils % (Manual) Basophils % Basophils % (Manual) Nucleated RBC % Anisocytosis Target Cells PT with INR INR PTT (Actin FS) Anticoagulation Therapy Puncture Site ABG pH ABG pCO2 at Pt Temp ABG pO2 at Pt Temp ABG HCO3 ABG O2 Sat (Measured) ABG O2 Content ABG Base Excess Regis Test VBG pH POC VBG pCO2 POC VBG pO2 Mixed VBG HCO3 Carboxyhemoglobin Methemoglobin O2 Delivery Device Oxygen Flow Rate Vent Mode Vent Rate Mechanical Rate Pressure Support Vent Sodium Cancelled Potassium Cancelled Chloride Cancelled Carbon Dioxide Cancelled Anion Gap Cancelled BUN Cancelled Creatinine Cancelled Creat Clearance w eGFR Cancelled Random Glucose Cancelled Lactic Acid 1.2 Calcium Cancelled Magnesium Total Bilirubin Cancelled AST Cancelled ALT Cancelled Alkaline Phosphatase Cancelled Creatine Kinase Troponin I Cancelled B-Natriuretic Peptide Total Protein Cancelled Albumin Cancelled Serum , Qual Cancelled Influenza A (Rapid) Influenza B (Rapid) 08/12/18 08/12/18 08/12/18 17:40 18:10 18:46 WBC RBC Hgb Hct MCV MCH MCHC RDW Plt Count MPV Absolute Neuts (auto) Neutrophils % Neutrophils % (Manual) Band Neutrophils % Lymphocytes % Lymphocytes % (Manual) Monocytes % Monocytes % (Manual) Eosinophils % Eosinophils % (Manual) Basophils % Basophils % (Manual) Nucleated RBC % Anisocytosis Target Cells PT with INR INR PTT (Actin FS) Anticoagulation Therapy No Result Required. Puncture Site Right radial ABG pH 7.40 ABG pCO2 at Pt Temp 40.4 ABG pO2 at Pt Temp 114.0 H ABG HCO3 24.2 ABG O2 Sat (Measured) 98.3 ABG O2 Content 12.0 L ABG Base Excess -0.1 Regis Test Positive VBG pH POC VBG pCO2 POC VBG pO2 Mixed VBG HCO3 Carboxyhemoglobin 0.8 Methemoglobin 0.7 O2 Delivery Device Nasal cannula Oxygen Flow Rate 2l Vent Mode No Result Required. Vent Rate No Result Required. Mechanical Rate No Result Required. Pressure Support Vent No Result Required. Sodium Potassium Chloride Carbon Dioxide Anion Gap BUN Creatinine Creat Clearance w eGFR Random Glucose Lactic Acid Calcium Magnesium Total Bilirubin AST ALT Alkaline Phosphatase Creatine Kinase Troponin I Cancelled B-Natriuretic Peptide Total Protein Albumin Serum , Qual Negative Influenza A (Rapid) Influenza B (Rapid) 08/12/18 08/12/18 08/12/18 18:46 19:41 19:41 WBC RBC Hgb Hct MCV MCH MCHC RDW Plt Count MPV Absolute Neuts (auto) Neutrophils % Neutrophils % (Manual) Band Neutrophils % Lymphocytes % Lymphocytes % (Manual) Monocytes % Monocytes % (Manual) Eosinophils % Eosinophils % (Manual) Basophils % Basophils % (Manual) Nucleated RBC % Anisocytosis Target Cells PT with INR INR PTT (Actin FS) Anticoagulation Therapy Puncture Site ABG pH ABG pCO2 at Pt Temp ABG pO2 at Pt Temp ABG HCO3 ABG O2 Sat (Measured) ABG O2 Content ABG Base Excess Regis Test VBG pH POC VBG pCO2 POC VBG pO2 Mixed VBG HCO3 Carboxyhemoglobin Methemoglobin O2 Delivery Device Oxygen Flow Rate Vent Mode Vent Rate Mechanical Rate Pressure Support Vent Sodium Potassium Chloride Carbon Dioxide Anion Gap BUN Creatinine Creat Clearance w eGFR Random Glucose Lactic Acid Calcium Magnesium 1.6 L Total Bilirubin AST ALT Alkaline Phosphatase Creatine Kinase 14 L Troponin I < 0.02 B-Natriuretic Peptide 570.0 H Total Protein Albumin Serum , Qual Influenza A (Rapid) Positive A Influenza B (Rapid) Negative 08/12/18 20:44 WBC RBC Hgb Hct MCV MCH MCHC RDW Plt Count MPV Absolute Neuts (auto) Neutrophils % Neutrophils % (Manual) Band Neutrophils % Lymphocytes % Lymphocytes % (Manual) Monocytes % Monocytes % (Manual) Eosinophils % Eosinophils % (Manual) Basophils % Basophils % (Manual) Nucleated RBC % Anisocytosis Target Cells PT with INR INR PTT (Actin FS) Anticoagulation Therapy Puncture Site ABG pH ABG pCO2 at Pt Temp ABG pO2 at Pt Temp ABG HCO3 ABG O2 Sat (Measured) ABG O2 Content ABG Base Excess Regis Test VBG pH POC VBG pCO2 POC VBG pO2 Mixed VBG HCO3 Carboxyhemoglobin Methemoglobin O2 Delivery Device Oxygen Flow Rate Vent Mode Vent Rate Mechanical Rate Pressure Support Vent Sodium 136 Potassium 3.5 Chloride 102 Carbon Dioxide 24 Anion Gap 11 BUN 19 H Creatinine 0.2 L Creat Clearance w eGFR > 60 Random Glucose 128 H Lactic Acid Calcium 8.2 L Magnesium Total Bilirubin 0.6 AST 42 H ALT 50 Alkaline Phosphatase 243 H Creatine Kinase Troponin I B-Natriuretic Peptide Total Protein 6.1 L Albumin 3.2 L Serum , Qual Influenza A (Rapid) Influenza B (Rapid) Imaging studies reviewed ekg showed sinus tachycardia ASSESSMENT/PLAN: #37yo woman with hodgkin's lymphoma, immunosuppressed, [facility] resident influenza+A with likely early sepsis secondary superimposed bacterial pneumonia. Productive cough, and b/l patchy infiltrates seen on chest CT are supportive. Should cover for staph as this is likely organism on superimposed pneumonia. PE should also be ruled out since patient was tachy and high risk for VTE due to her underlying malignancy (although she is on coumadin). Pneumonia is likely viral/bacterial but if no response to antibiotics will consider other etiologies such as fungal. -sputum culture -blood cultures x2 -urine for legionella ag -zosyn -vancomycin -azithromycin -tamiflu 75mg po bid -suction if copious secretions -lactate -IV fluid hydration -monitor VS closely -c/w home dose of dexamethasone and Jakafi at this time -ID evaluation -heme/onc evaluation to possibly d/c immunosuppresive meds -f/u official CTA report to r/o PE -ascertain exact reason for coumadin with PCP in am -diet -dvt ppx- pn coumadin, will order heparin sc for now since INR is subtherapeutic #seizure d/o -c/w keppra 500mg po bid Visit type - Emergency Visit Emergency Visit: Yes ED Registration Date: 08/12/18 Care time: The patient presented to the Emergency Department on the above date and was hospitalized for further evaluation of their emergent condition. - New Patient This patient is new to me today: Yes Date on this admission: 08/13/18 - Critical Care Critical Care patient: No
[2018-08-13] MEDS ORDERED: ACETAMINOPHEN 325 MG TABLET (FP) PO ONE (00:44)
[2018-08-13] MEDS ORDERED: ACETAMINOPHEN 325 MG TABLET (FP) ONE (00:48)
[2018-08-13] MEDS ORDERED: ACETAMINOPHEN 500 MG TABLET (FP) PO PRN (01:09)
[2018-08-13] MEDS ORDERED: WARFARIN NA 5 MG TABLET (UD) ONE (01:13)
[2018-08-13] MEDS ORDERED: AZITHROMYCIN IVPB 500 MG/250 ML BAG IVPB ONE (01:13)
[2018-08-13] MEDS: SODIUM CHLORIDE 1,000 ML IV SCH ×2 (01:31→06:42)
[2018-08-13] MEDS ORDERED: guaiFENesin 200 MG/10 ML 10 ML UNIT-DOSE CUPS PO PRN (04:34)
[2018-08-13] MEDS ORDERED: ALBUTEROL SO4 2.5/IPRATROPIUM 0.5 INH SOL 3 ML VIAL.NEB. NEB ONE (04:45)
[2018-08-13] MEDS: ALBUTEROL SO4 0.083% IH SOL 2.5 MG/3 ML VIAL.NEB. NEB PRN ×4 (04:53→20:55)
[2018-08-13] MEDS ORDERED: HEPARIN NA (PORCINE) 5,000 UNITS/ML 1ML VIAL SQ SCH (06:00)
[2018-08-13] MEDS ORDERED: PT OWN MED DRAWER 7, Y5N ONE ×7 (07:09→21:56)
[2018-08-13] MEDS: GABAPENTIN 250 MG/5 ML ORAL SOLUTION, 470 ML BOTTLE PEG SCH ×3 (07:14→22:24)
[2018-08-13] MEDS: HEPARIN NA (PORCINE) 5,000 UNITS/ML 1ML VIAL SQ SCH ×3 (07:16→22:23)
[2018-08-13 09:05] LABS: HEMATOCRIT 32.2 % (32.4-45.2); HEMOGLOBIN 10.8 GM/dL (10.7-15.3); MCH 26.3 pg (25.7-33.7); MCHC 33.4 g/dl (32.0-36.0); MEAN CELL VOLUME 78.8 fl (80-96); MEAN PLT VOLUME 8.7 fl (7.5-11.1); PLATELET COUNT 268 K/MM3 (134-434); RBC 4.09 M/mm3 (3.60-5.2); RDW 25.2 % (11.6-15.6); WHITE BLOOD COUNT 3.2 K/mm3 (4.0-10.0)
[2018-08-13] MEDS ORDERED: ACETAMINOPHEN 325 MG TABLET (FP) PO PRN (09:14)
[2018-08-13 09:17] LABS: INR 1.5 (0.83-1.09); PROTHROMBIN TIME (PATIENT) 17.8 SEC (9.7-13.0)
[2018-08-13 09:29] LABS: ANION GAP 11 MMOL/L (8-16); BLOOD UREA NITROGEN 15 mg/dL (7-18); CHLORIDE 101 mmol/L (98-107); CO2 23 mmol/L (21-32); CREATININE 0.2 mg/dL (0.55-1.3); GLUCOSE,RANDOM 75 mg/dL (74-106); SODIUM 135 mmol/L (136-145)
[2018-08-13] MEDS: OSELTAMIVIR PHOSPHATE 75 MG CAPSULE PO SCH ×2 (09:44→22:23)
[2018-08-13] MEDS: levETIRAcetam 500 MG/5 ML ORAL SOLUTION (UNIT-DOSE CUPS) GT SCH ×2 (09:44→22:22)
[2018-08-13] MEDS: RANITIDINE HCL 150 MG/10 ML UNIT-DOSE PEG SCH ×2 (09:45→22:23)
[2018-08-13] MEDS ORDERED: LOPERAMIDE HCL 2 MG CAPSULE PEG SCH (10:00)
[2018-08-13] MEDS ORDERED: POTASSIUM CHLORIDE ORAL LIQUID 20 MEQ/15 ML GT SCH ×2 (10:00→11:50)
[2018-08-13] MEDS ORDERED: DEXAMETHASONE 4 MG TABLET (FP) PEG SCH (10:00)
[2018-08-13 10:21] LABS: POTASSIUM 2.8 mmol/L (3.5-5.1)
[2018-08-13] MEDS ORDERED: METOPROLOL TARTRATE 25 MG TABLET (FP) PO ONE (11:49)
--- NOTE | 2018-08-13 11:54 | PN ---
Progress Note, Physician Chief Complaint: Influenza A+ SIRS History of Present Illness: Extremely lethargic Influenza + Seen by ID On Tamiflu+ IV abx Hypoxic, on Non rebreather Tachycardia noticed No EKG done since admission - Current Medication List Current Medications: Active Medications Acetaminophen (Tylenol -) 650 mg PO Q4H PRN PRN Reason: PAIN OR FEVER Albuterol Sulfate (Ventolin 0.083% Nebulizer Soln -) 1 amp NEB Q6H PRN PRN Reason: SHORT OF BREATH/WHEEZING Last Admin: 08/13/18 08:47 Dose: 1 amp Dexamethasone (Decadron -) 4 mg PEG DAILY [facility] Last Admin: 08/13/18 09:44 Dose: 4 mg Gabapentin (Neurontin Oral Liquid -) 250 mg PEG TID [facility] Last Admin: 08/13/18 07:14 Dose: 250 mg Guaifenesin (Robitussin -) 10 ml PO Q4H PRN PRN Reason: COUGH Heparin Sodium (Porcine) (Heparin -) 5,000 unit SQ TID [facility] Last Admin: 08/13/18 07:16 Dose: Not Given Sodium Chloride (Normal Saline -) 1,000 mls @ 42 mls/hr IV ASDIR [facility] Last Admin: 08/13/18 06:42 Dose: 42 mls/hr Potassium Chloride 40 meq/ (Sodium Chloride) 1,020 mls @ 75 mls/hr IVPB ASDIR [place] Potassium Chloride (Potassium Chloride 10 Meq Premix Ivpb -) 10 meq in 100 mls @ 100 mls/hr IVPB Q60M [facility] Stop: 08/13/18 14:59 Levetiracetam (Keppra Oral Solution -) 500 mg GT BID [facility] Last Admin: 08/13/18 09:44 Dose: 500 mg Loperamide HCl (Imodium -) 2 mg PEG DAILY [facility] Last Admin: 08/13/18 09:44 Dose: 2 mg Metoprolol Tartrate (Lopressor -) 25 mg PO ONCE ONE Stop: 08/13/18 11:50 Non-Formulary Medication (Ruxolitinib Phosphate [Jakafi]) 5 mg GT BID [facility] Oseltamivir Phosphate (Tamiflu -) 75 mg PO BID [facility] Stop: 08/18/18 09:59 Last Admin: 08/13/18 09:44 Dose: 75 mg Potassium Chloride (Potassium Chloride Oral Liquid) 40 meq GT DAILY [facility] Ranitidine HCl (Zantac Oral Solution -) 150 mg PEG BID [facility] Last Admin: 08/13/18 09:45 Dose: 150 mg Warfarin Sodium (Coumadin -) 2.5 mg PO ASDIR [facility] Last Admin: 08/13/18 01:31 Dose: 2.5 mg - Objective Vital Signs: Vital Signs Temperature 100.3 F H 08/13/18 08:15 Pulse Rate 145 H 08/13/18 08:15 Respiratory Rate 23 H 08/13/18 08:15 Blood Pressure 104/57 L 08/13/18 08:15 O2 Sat by Pulse Oximetry (%) 92 L 08/13/18 09:00 Constitutional: Yes: No Distress, Calm, Mild Distress Cardiovascular: Yes: Tachycardia Respiratory: Yes: On Venti-Mask Gastrointestinal: Yes: Normal Bowel Sounds, Soft Genitourinary: Yes: WNL Musculoskeletal: Yes: Muscle Weakness Edema: No Peripheral Pulses WNL: Yes Neurological: Yes: Alert, Lethargy Psychiatric: Yes: Alert Labs: CBC, BMP 08/13/18 08:55 08/13/18 08:55 INR, PTT INR 1.50 (0.83-1.09) H 08/13/18 08:55 Problem List - Problems (1) Hypoxia Assessment/Plan: -Non rebreather, keep Spo2>90% -Pulmonary consult -bronchodilators Code(s): R09.02 - HYPOXEMIA (2) Tachycardia Assessment/Plan: -EKG stat -metoprolol 25 mg po once -IVF -transfer to telemetry Code(s): R00.0 - TACHYCARDIA, UNSPECIFIED (3) Influenza A Assessment/Plan: -Tamiflu -ID consult -IVF -Droplet isolation -Tylenol for fever Code(s): J10.1 - FLU DUE TO OTH IDENT INFLUENZA VIRUS W OTH RESP MANIFEST (4) SIRS (systemic inflammatory response syndrome) Code(s): R65.10 - SIRS OF NON-INFECTIOUS ORIGIN W/O ACUTE ORGAN DYSFUNCTION (5) Hodgkin lymphoma Assessment/Plan: -Hematology/onc consult -Continue decadron -Jakafi unavailable?-replacement as per oncology Code(s): C81.90 - HODGKIN LYMPHOMA, UNSPECIFIED, UNSPECIFIED SITE (6) Anticoagulant long-term use Assessment/Plan: -On Warfarin due to hx of CVA -Monitor INR trend Code(s): Z79.01 - 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
[2018-08-13] MEDS: KCL 10 MEQ IVPB 10 MEQ/100 ML INFUS.BAG IVPB SCH ×3 (12:31→17:09)
[2018-08-13] MEDS: POTASSIUM CHLORIDE 40 MEQ in SODIUM CHLORIDE 1,000 ML IVPB SCH (12:41)
--- NOTE | 2018-08-13 12:48 | PN ---
Progress Note (short form) - Note Progress Note: ID CONSULT DICTATED ACUTE INFLUENZA A R/O SUPERIMPOSED PNEUMONIA/ SEPSIS LEUKOPENIA SECONDARY TO VIRAL INFECTION/ SEPSIS LYMPHOMA ON IMMUNOSUPPRESSIVE TX AWAIT C/S CONTINUE TAMIFLU EMPIRIC ZOSYN/ VANCOMYCIN/ ZITHROMAX
[2018-08-13] MEDS ORDERED: PIPERACILLIN/TAZOBACTAM 3.375 GM VIAL IVPB ONE ×2 (13:20→17:42)
[2018-08-13] MEDS ORDERED: DEXTROSE 5%-WATER - 50 ML IVPB ONE ×2 (13:20→17:42)
--- NOTE | 2018-08-13 13:21 | CONS ---
DATE OF CONSULTATION: DATE OF DICTATION: 08/13/2018 HISTORY OF PRESENT ILLNESS: The patient is a 37-year-old female resident of a care home facility with a history of Hodgkin lymphoma, on chemotherapy, status post bone marrow transplant, evaluated for sepsis. She presented to the hospital with a 3-day history of fevers, chills and anorexia. The patient was evaluated in the emergency room where her temperature was 101.4. A rapid influenza swab was performed and was positive for influenza A. She was started on Tamiflu. A CAT scan of the chest was performed and revealed bibasilar consolidations. She was empirically treated with vancomycin, Zosyn and Zithromax. At the present time she is awake. She is tachypneic on Ventimask. She denies any chest pain. Denies cough or sputum production. PAST MEDICAL HISTORY: Positive for Hodgkin lymphoma treated with chemotherapy, presently on Decadron, history of bone marrow transplant. Past medical history also includes stroke. ALLERGIES: To BLEOMYCIN and RIVAROXABAN. MEDICATIONS: Include Decadron, Pepcid, Neurontin, Imodium. SOCIAL HISTORY: She resides in a care home facility. No active tobacco or alcohol use. SYSTEMS REVIEW: Neurologic: Positive for stroke. Cardiac: Negative chest pain or palpitations.Respiratory: As per HPI. Gastrointestinal: Status post feeding gastrostomy.Genitourinary: Negative for urinary tract infection. LABORATORY DATA: White count 3.2, no differential available, hematocrit 32.2, platelets 268. BUN 15, creatinine 0.2. Blood cultures pending. PHYSICAL EXAMINATION: General: She is awake. She is lethargic but answers simple questions appropriately. She is short of breath at rest on Ventimask. Vital Signs: Temperature 100.3, T-max 103.7, blood pressure 164/57, pulse 145, regular, respirations 22 per minute. HEENT: Sclerae are anicteric. Cardiac: Heart sounds tachycardic, S1, S2. Lungs: Poor inspiratory effort. Decreased breath sounds bilaterally. Catheter in place. No erythema or tenderness. Abdomen: Soft. No tenderness elicited. Feeding gastrostomy tube in place. No erythema or drainage at the site. Extremities: Positive for edema. Negative Homans sign. IMPRESSION: 1. Acute influenza A. 2. Rule out superimposed pneumonia/sepsis. 3. Leukopenia secondary to viral infection and possible sepsis. 4. Lymphoma, on immunosuppressive therapy. RECOMMENDATIONS: Await sepsis workup. Continue Tamiflu and flu precautions. Empiric coverage for fci-acquired respiratory tract pathogens as well as atypical pulmonary pathogens with Zosyn, Zithromax and vancomycin. Prognosis is guarded. Will follow. Thank you for the kind referral. KATHLEEN SILVERMAN M.D. GEETA/[id number]
[2018-08-13] MEDS: PIPERACILLIN/TAZOB 3.375 GM 3.375 GM in DEXTROSE 5%-WATER - 50 ML IVPB SCH ×2 (13:26→18:19)
[2018-08-13] MEDS: VANCOMYCIN 1 GRAM (PRE-DOCKED) 1,000 MG/250 ML BAG IVPB SCH (15:39)
[2018-08-13] MEDS: AZITHROMYCIN IVPB 500 MG/250 ML BAG IVPB SCH (17:10)
[2018-08-13] MEDS ORDERED: MORPHINE SULFATE 2 MG/ML VIAL IVPUSH ONE (18:45)
--- NOTE | 2018-08-13 20:18 | CONSULT ---
Consult Consult Specialty:: Heme Referred by:: Dr. Bishop Reason for Consultation:: Hodgkin Lymphoma - History of Present Illness Chief Complaint: SOB History of Present Illness: 37F, SNF resident, with hx CVA, on warfarin, HL s/p allogeneic transplant in 2014, followed at [facility] (Dr. 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 Found to have influenza A and bilateral lower lobe bronchiectasis with consolidation. Started on Tamiflu and broad spectrum Abx for likely superimposed PNA. Continues to have SOB. Currently on NRB so difficult to provide full history. Reports that she currently has no evidence of HL - Alcohol/Substance Use Hx Alcohol Use: No - Smoking History Smoking history: Never smoked Have you smoked in the past 12 months: No Home Medications - Allergies Allergies/Adverse Reactions: Allergies Allergy/AdvReac Type Severity Reaction Status Date / Time bleomycin Allergy Verified 08/12/18 16:26 nut - unspecified Allergy Verified 08/12/18 16:27 peanut Allergy Verified 08/12/18 16:27 rivaroxaban Allergy Verified 08/12/18 16:27 - Home Medications Home Medications: Ambulatory Orders Cholecalciferol (Vitamin D3) [Vitamin D3] 5,000 unit PEG WEEKLY 08/12/18 Dexamethasone [Decadron] 5 ml PO DAILY 08/12/18 Dextran/Hypromellose/Glycerin [Genteal Tears 0.1%-0.2%-0.3%] 1 drop OU TID 08/12 Erythromycin Oral Suspension [Eryped Oral Suspension -] 6.3 ml PEG TID 08/12/18 Famotidine 20 mg PEG BID 08/12/18 Gabapentin Liquid [Neurontin Oral Liquid -] 250 mg PEG TID 08/12/18 Hydrophilic Ointment [Dermafix] 1 applic TP BID 08/12/18 Lidocaine 5% Top. Ointment [Xylocaine 5% Top. Ointment] 1 applic TP BID Loperamide HCl [Imodium A-D] 2 mg PEG DAILY 08/12/18 Potassium Chloride [Klor-Con] 20 meq GT DAILY 08/12/18 Ruxolitinib Phosphate [Jakafi] 5 mg GT BID 08/12/18 Warfarin Na [Coumadin] 2.5 mg PO ASDIR 08/12/18 Warfarin Sodium [Coumadin] 4 mg PO ASDIR 08/12/18 levETIRAcetam [levETIRAcetam ORAL SUSPENSION] 500 mg GT BID 08/12/18 Ondansetron HCl [Zofran] 4 mg PO TID PRN 08/13/18 Ruxolitinib Phosphate [Jakafi] 5 mg PO BID 08/13/18 Review of Systems - Review of Systems Constitutional: reports: Chills, Fever Eyes: reports: No Symptoms Cardiovascular: reports: No Symptoms Respiratory: reports: SOB Gastrointestinal: reports: No Symptoms Physical Exam Vital Signs: Vital Signs Temperature 98.1 F 08/13/18 16:30 Pulse Rate 92 H 08/13/18 16:30 Respiratory Rate 24 H 08/13/18 16:30 Blood Pressure 129/76 08/13/18 16:30 O2 Sat by Pulse Oximetry (%) 92 L 08/13/18 09:00 Labs: CBC, BMP 08/13/18 08:55 08/13/18 08:55 Imaging - Results Cat Scan: Report Reviewed Assessment/Plan 37F, SNF resident, with hx CVA, on warfarin, HL s/p allogeneic transplant in 2014, followed at [facility] (Dr. 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 On broad spectrum Abx and Tamiflu. Please continue both Jakafi (abrupt discontinuation can rapidly cause severe life threatening withdrawal syndrome) and dexamethasone (to prevent adrenal insufficiency as this is a [facility] med). Will follow.
[2018-08-13] MEDS: WARFARIN NA 2.5 MG TABLET (FP) PO SCH (20:28)
--- NOTE | 2018-08-13 21:58 | EKG ---
Test Reason : Blood Pressure : / mmHG Vent. Rate : 111 BPM Atrial Rate : 111 BPM P-R Int : 182 ms QRS Dur : 070 ms QT Int : 334 ms P-R-T Axes : 025 049 018 degrees QTc Int : 454 ms SINUS TACHYCARDIA POSSIBLE LEFT ATRIAL ENLARGEMENT BORDERLINE ECG WHEN COMPARED WITH ECG OF 12-AUG-2018 16:34, NO SIGNIFICANT CHANGE WAS FOUND Confirmed by PHUONG ESCOBAR MD ([id number]) on 08/13/2018 9:58:01 PM Referred By: Wu MATA Confirmed By:PHUONG ESCOBAR MD
--- NOTE | 2018-08-13 22:05 | EKG ---
Test Reason : Blood Pressure : / mmHG Vent. Rate : 122 BPM Atrial Rate : 122 BPM P-R Int : 172 ms QRS Dur : 068 ms QT Int : 290 ms P-R-T Axes : 045 060 042 degrees QTc Int : 413 ms SINUS TACHYCARDIA LEFT ATRIAL ENLARGEMENT BORDERLINE ECG NO PREVIOUS ECGS AVAILABLE Confirmed by PHUONG ESCOBAR MD ([id number]) on 08/13/2018 10:05:05 PM Referred By: Confirmed By:PHUONG ESCOBAR MD
[2018-08-13] MEDS ORDERED: RUXOLITINIB PHOSPHATE 5 MG GT SCH (22:15)
[2018-08-13 22:32] LABS: URINE APPEARANCE CLEAR; URINE BILIRUBIN NEGATIVE (<2.0 mg/dL); URINE COLOR LTYELLOW; URINE GLUCOSE (UA) NEGATIVE (NEGATIVE); URINE KETONE 1+ (NEGATIVE); URINE LEUK ESTERASE NEGATIVE (NEGATIVE); URINE NITRITE NEGATIVE (NEGATIVE); URINE PROTEIN 1+ (NEGATIVE); URINE UROBILINOGEN NEGATIVE mg/dL (0.2-1.0)
[2018-08-13 22:34] LABS: EPI CELLS RARE /HPF (FEW); URINE MUCUS RARE
[2018-08-14] MEDS ORDERED: PT OWN MED DRAWER 7, Y5N ONE ×2 (00:32→09:29)
[2018-08-14] MEDS: POTASSIUM CHLORIDE 40 MEQ in SODIUM CHLORIDE 1,000 ML IVPB SCH ×2 (01:30→17:36)
[2018-08-14] MEDS ORDERED: PIPERACILLIN/TAZOBACTAM 3.375 GM VIAL IVPB ONE ×3 (02:23→17:55)
[2018-08-14] MEDS ORDERED: DEXTROSE 5%-WATER - 50 ML IVPB ONE ×3 (02:23→17:55)
[2018-08-14] MEDS: ACETAMINOPHEN 325 MG TABLET (FP) PO PRN ×3 (02:27→18:25)
[2018-08-14] MEDS: VANCOMYCIN 1 GRAM (PRE-DOCKED) 1,000 MG/250 ML BAG IVPB SCH ×2 (02:28→13:55)
[2018-08-14] MEDS: PIPERACILLIN/TAZOB 3.375 GM 3.375 GM in DEXTROSE 5%-WATER - 50 ML IVPB SCH ×3 (03:41→18:24)
[2018-08-14] MEDS: HEPARIN NA (PORCINE) 5,000 UNITS/ML 1ML VIAL SQ SCH ×3 (05:32→22:43)
[2018-08-14] MEDS: GABAPENTIN 250 MG/5 ML ORAL SOLUTION, 470 ML BOTTLE PEG SCH ×3 (05:34→22:43)
[2018-08-14 08:31] LABS: BASO % 0.4 % (0-2.0); EOS % 0.1 % (0-4.5); HEMATOCRIT 29.1 % (32.4-45.2); HEMOGLOBIN 9.6 GM/dL (10.7-15.3); LYMPH % 8.6 % (8-40); MCH 25.8 pg (25.7-33.7); MCHC 32.9 g/dl (32.0-36.0); MEAN CELL VOLUME 78.4 fl (80-96); MEAN PLT VOLUME 8.4 fl (7.5-11.1); NEUT % 86.9 % (42.8-82.8); PLATELET COUNT 267 K/MM3 (134-434); RBC 3.72 M/mm3 (3.60-5.2); RDW 24.6 % (11.6-15.6); WHITE BLOOD COUNT 6.5 K/mm3 (4.0-10.0)
[2018-08-14 08:38] LABS: INR 2.09 (0.83-1.09); PROTHROMBIN TIME (PATIENT) 24.8 SEC (9.7-13.0)
[2018-08-14 09:04] LABS: ALK PHOS 178 U/L (45-117); ANION GAP 7 MMOL/L (8-16); BILIRUBIN,TOTAL 0.5 mg/dL (0.2-1); BLOOD UREA NITROGEN 10 mg/dL (7-18); CALCIUM 8.8 mg/dL (8.5-10.1); CHLORIDE 105 mmol/L (98-107); CO2 24 mmol/L (21-32); CREATININE 0.2 mg/dL (0.55-1.3); GLUCOSE,RANDOM 126 mg/dL (74-106); POTASSIUM 3.8 mmol/L (3.5-5.1); SGOT/AST 41 U/L (15-37); SGPT/ALT 43 U/L (13-61); SODIUM 136 mmol/L (136-145)
[2018-08-14] MEDS ORDERED: POTASSIUM CHLORIDE 40 MEQ in SODIUM CHLORIDE 1,000 ML IVPB SCH (10:00)
[2018-08-14] MEDS ORDERED: RUXOLITINIB PHOSPHATE 5 MG GT SCH (10:00)
[2018-08-14] MEDS: AZITHROMYCIN IVPB 500 MG/250 ML BAG IVPB SCH (10:14)
[2018-08-14] MEDS: POTASSIUM CHLORIDE ORAL LIQUID 20 MEQ/15 ML GT SCH (10:15)
[2018-08-14] MEDS: RANITIDINE HCL 150 MG/10 ML UNIT-DOSE PEG SCH ×2 (10:15→22:43)
[2018-08-14] MEDS: DEXAMETHASONE 4 MG TABLET (FP) PEG SCH (10:16)
[2018-08-14] MEDS: LOPERAMIDE HCL 2 MG CAPSULE PEG SCH (10:16)
[2018-08-14] MEDS: levETIRAcetam 500 MG/5 ML ORAL SOLUTION (UNIT-DOSE CUPS) GT SCH ×2 (10:17→22:43)
[2018-08-14] MEDS: RUXOLITINIB PHOSPHATE 5 MG GT SCH ×2 (10:18→22:43)
[2018-08-14] MEDS: OSELTAMIVIR PHOSPHATE 75 MG CAPSULE PO SCH ×2 (10:19→22:44)
[2018-08-14] MEDS: ALBUTEROL SO4 0.083% IH SOL 2.5 MG/3 ML VIAL.NEB. NEB PRN ×3 (11:43→21:27)
--- NOTE | 2018-08-14 11:48 | PN ---
Progress Note, Physician History of Present Illness: VERY WEAK APPEARING C/O BACK AND NECK PAIN SECONDARY TO POSITIONING IN BED NO C/O CHEST PAIN/ DYSPNEA/ COUGH BREATHING NON-LABORED ON NRB MASK TEMPS DOWN AFEBRILE WBC IMPROVED - Current Medication List Current Medications: Active Medications Acetaminophen (Tylenol -) 650 mg PO Q4H PRN PRN Reason: PAIN OR FEVER Last Admin: 08/14/18 11:07 Dose: 650 mg Albuterol Sulfate (Ventolin 0.083% Nebulizer Soln -) 1 amp NEB Q6H PRN PRN Reason: SHORT OF BREATH/WHEEZING Dexamethasone (Decadron -) 4 mg PEG DAILY [facility] Last Admin: 08/14/18 10:16 Dose: 4 mg Gabapentin (Neurontin Oral Liquid -) 250 mg PEG TID [facility] Last Admin: 08/14/18 05:34 Dose: 250 mg Guaifenesin (Robitussin -) 10 ml PO Q4H PRN PRN Reason: COUGH Heparin Sodium (Porcine) (Heparin -) 5,000 unit SQ TID [facility] Last Admin: 08/14/18 05:32 Dose: 5,000 unit Piperacillin Sod/Tazobactam (Sod 3.375 gm/ Dextrose) 50 mls @ 100 mls/hr IVPB Q8H-IV [facility]; Protocol Last Admin: 08/14/18 10:15 Dose: 100 mls/hr Vancomycin HCl (Vancomycin (Pre-Docked)) 1,000 mg in 250 mls @ 166.667 mls/hr IVPB Q12H [facility]; Protocol Last Admin: 08/14/18 02:28 Dose: 166.667 mls/hr Azithromycin (Zithromax 500mg Ivpb (Pre-Docked)) 500 mg in 250 mls @ 250 mls/ hr IVPB DAILY [facility] Last Admin: 08/14/18 10:14 Dose: 250 mls/hr Potassium Chloride 40 meq/ (Sodium Chloride) 1,020 mls @ 75 mls/hr IVPB ASDIR [facility] Levetiracetam (Keppra Oral Solution -) 500 mg GT BID [facility] Last Admin: 08/14/18 10:17 Dose: 500 mg Loperamide HCl (Imodium -) 2 mg PEG DAILY [facility] Last Admin: 08/14/18 10:16 Dose: 2 mg Ruxolitinib Phosphate [Jakafi] 5 Mg 5 mg GT BID [facility] Last Admin: 08/14/18 10:18 Dose: 5 mg Oseltamivir Phosphate (Tamiflu -) 75 mg PO BID [facility] Stop: 08/18/18 09:59 Last Admin: 08/14/18 10:19 Dose: 75 mg Potassium Chloride (Potassium Chloride Oral Liquid) 40 meq GT DAILY [facility] Last Admin: 08/14/18 10:15 Dose: 40 meq Ranitidine HCl (Zantac Oral Solution -) 150 mg PEG BID [facility] Last Admin: 08/14/18 10:15 Dose: 150 mg Warfarin Sodium (Coumadin -) 2.5 mg PO DAILY@1800 [facility] Last Admin: 08/13/18 20:28 Dose: 2.5 mg - Objective Vital Signs: Vital Signs Temperature 98.1 F 08/14/18 10:00 Pulse Rate 97 H 08/14/18 10:00 Respiratory Rate 17 08/14/18 10:00 Blood Pressure 106/71 08/14/18 10:00 O2 Sat by Pulse Oximetry (%) 95 08/13/18 21:00 Constitutional: Yes: No Distress Eyes: Yes: Conjunctiva Clear Cardiovascular: Yes: Regular Rate and Rhythm, S1, S2 Respiratory: Yes: Diminished Gastrointestinal: Yes: Normal Bowel Sounds, Soft. No: Tenderness Edema: Yes Edema: LLE: 1+, RLE: 1+ Integumentary: Yes: Other (CATHETER SITE NO ERYTHEMA) Labs: CBC, BMP 08/14/18 08:03 08/14/18 08:03 INR, PTT INR 2.09 (0.83-1.09) H 08/14/18 08:03 Assessment/Plan ACUTE INFLUENZA A BIBASILAR PNEUMONIA LEUKOPENIA- IMPROVED LYMPHOMA CONTINUE EMPIRIC ZOSYN/ ZITHROMAX/VANCOMYCIN PROGNOSIS GUARDED
--- NOTE | 2018-08-14 12:12 | CON.PULM ---
Consult Consult Specialty:: PULMONARY Referred by:: ANNALEE Reason for Consultation:: INFLU A - History of Present Illness Chief Complaint: SOB/FEVER/FAILURE TO THRIVE History of Present Illness: The patient is a 37 year old female, [facility] resident, with a significant PMH of hodgkins lymphoma, BMT, CVA (on coumadin), who presents to the emergency department with 3 days of worsening SOB. Pt states she has felt sick with fevers and poor appetite for 3 days as well. States she has been compliant with her medications. 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 Cardio/Vascular: No: AFIB Pulmonary: No: Asthma Gastrointestinal: No: Ascites Hepatobiliary: No: Cirrhosis Renal/: No: Renal Failure ...: No Heme/Onc: Yes: Anemia - Alcohol/Substance Use Hx Alcohol Use: No - Smoking History Smoking history: Never smoked Have you smoked in the past 12 months: No - Social History Usual Living Arrangement: [facility] History of Recent Travel: No Home Medications - Allergies Allergies/Adverse Reactions: Allergies Allergy/AdvReac Type Severity Reaction Status Date / Time bleomycin Allergy Verified 08/12/18 16:26 nut - unspecified Allergy Verified 08/12/18 16:27 peanut Allergy Verified 08/12/18 16:27 rivaroxaban Allergy Verified 08/12/18 16:27 - Home Medications Home Medications: Ambulatory Orders Cholecalciferol (Vitamin D3) [Vitamin D3] 5,000 unit PEG WEEKLY 08/12/18 Dexamethasone [Decadron] 5 ml PO DAILY 08/12/18 Dextran/Hypromellose/Glycerin [Genteal Tears 0.1%-0.2%-0.3%] 1 drop OU TID 08/12 Erythromycin Oral Suspension [Eryped Oral Suspension -] 6.3 ml PEG TID 08/12/18 Famotidine 20 mg PEG BID 08/12/18 Gabapentin Liquid [Neurontin Oral Liquid -] 250 mg PEG TID 08/12/18 Hydrophilic Ointment [Dermafix] 1 applic TP BID 08/12/18 Lidocaine 5% Top. Ointment [Xylocaine 5% Top. Ointment] 1 applic TP BID Loperamide HCl [Imodium A-D] 2 mg PEG DAILY 08/12/18 Potassium Chloride [Klor-Con] 20 meq GT DAILY 08/12/18 Ruxolitinib Phosphate [Jakafi] 5 mg GT BID 08/12/18 Warfarin Na [Coumadin] 2.5 mg PO ASDIR 08/12/18 Warfarin Sodium [Coumadin] 4 mg PO ASDIR 08/12/18 levETIRAcetam [levETIRAcetam ORAL SUSPENSION] 500 mg GT BID 08/12/18 Ondansetron HCl [Zofran] 4 mg PO TID PRN 08/13/18 Ruxolitinib Phosphate [Jakafi] 5 mg PO BID 08/13/18 Family Disease History - Family Disease History Family History: Unable to Obtain Review of Systems Unable to obtain ROS, reason: DIFFICULT TO OBTAIN Physical Exam Vital Sings: Vital Signs Temperature 98.1 F 08/14/18 10:00 Pulse Rate 97 H 08/14/18 10:00 Respiratory Rate 17 08/14/18 10:00 Blood Pressure 106/71 08/14/18 10:00 O2 Sat by Pulse Oximetry (%) 95 08/13/18 21:00 Constitutional: Yes: Mild Distress Eyes: Yes: Conjunctiva Clear HENT: Yes: Normocephalic Neck: Yes: Trachea Midline Cardiovascular: Yes: Tachycardia, S1, S2 Respiratory: Yes: Diminished, Rhonchi Gastrointestinal: Yes: Soft Edema: No Neurological: Yes: Pre-Existing Deficit Labs: CBC, BMP 08/14/18 08:03 08/14/18 08:03 ABG Results ABG pH 7.40 (7.35-7.45) 08/12/18 18:10 ABG pCO2 at Pt Temp 40.4 mmHg (35-45) 08/12/18 18:10 ABG pO2 at Pt Temp 114.0 mmHg (80-100) H 08/12/18 18:10 ABG HCO3 24.2 meq/L (22-26) 08/12/18 18:10 ABG O2 Sat (Measured) 98.3 % (90-98.9) 08/12/18 18:10 ABG O2 Content 12.0 % vol (15-22) L 08/12/18 18:10 ABG Base Excess -0.1 meq/l (-2-2) 08/12/18 18:10 REST REVIEWED Imaging - Results Chest X-ray: Report Reviewed, Image Reviewed Cat Scan: Report Reviewed, Image Reviewed EKG: Image Reviewed Problem List - Problems (1) Hodgkin lymphoma Code(s): C81.90 - HODGKIN LYMPHOMA, UNSPECIFIED, UNSPECIFIED SITE (2) Hypoxia Code(s): R09.02 - HYPOXEMIA (3) Influenza A Code(s): J10.1 - FLU DUE TO OTH IDENT INFLUENZA VIRUS W OTH RESP MANIFEST (4) SIRS (systemic inflammatory response syndrome) Code(s): R65.10 - SIRS OF NON-INFECTIOUS ORIGIN W/O ACUTE ORGAN DYSFUNCTION (5) Tachycardia Code(s): R00.0 - TACHYCARDIA, UNSPECIFIED Assessment/Plan ANTIBIOTICS/TAMIFLU/IV FLUID SUPPORT NEEDED/NIPPV STEROIDS/ANTICOAGULATION MONITOR CXR/ABG/MONITOR NENA LEAHY MD
[2018-08-14 13:19] LABS: ANISOCYTOSIS 1+; MACROCYTOSIS 0; PLATELET ESTIMATE NORMAL; TARGET CELLS 1+
--- NOTE | 2018-08-14 13:30 | PN ---
Progress Note, Physician Chief Complaint: Influenza A+ SIRS History of Present Illness: Extremely lethargic Influenza + Seen by ID On Tamiflu+ IV abx on Non rebreather Tachycardia improved Tele monitoring Fevers improved - Current Medication List Current Medications: Active Medications Acetaminophen (Tylenol -) 650 mg PO Q4H PRN PRN Reason: PAIN OR FEVER Last Admin: 08/14/18 11:07 Dose: 650 mg Albuterol Sulfate (Ventolin 0.083% Nebulizer Soln -) 1 amp NEB Q6H PRN PRN Reason: SHORT OF BREATH/WHEEZING Last Admin: 08/14/18 11:43 Dose: 1 amp Dexamethasone (Decadron -) 4 mg PEG DAILY [facility] Last Admin: 08/14/18 10:16 Dose: 4 mg Gabapentin (Neurontin Oral Liquid -) 250 mg PEG TID [facility] Last Admin: 08/14/18 05:34 Dose: 250 mg Guaifenesin (Robitussin -) 10 ml PO Q4H PRN PRN Reason: COUGH Heparin Sodium (Porcine) (Heparin -) 5,000 unit SQ TID [facility] Last Admin: 08/14/18 05:32 Dose: 5,000 unit Piperacillin Sod/Tazobactam (Sod 3.375 gm/ Dextrose) 50 mls @ 100 mls/hr IVPB Q8H-IV [facility]; Protocol Last Admin: 08/14/18 10:15 Dose: 100 mls/hr Vancomycin HCl (Vancomycin (Pre-Docked)) 1,000 mg in 250 mls @ 166.667 mls/hr IVPB Q12H [facility]; Protocol Last Admin: 08/14/18 02:28 Dose: 166.667 mls/hr Azithromycin (Zithromax 500mg Ivpb (Pre-Docked)) 500 mg in 250 mls @ 250 mls/ hr IVPB DAILY [facility] Last Admin: 08/14/18 10:14 Dose: 250 mls/hr Potassium Chloride 40 meq/ (Sodium Chloride) 1,020 mls @ 75 mls/hr IVPB ASDIR [facility] Levetiracetam (Keppra Oral Solution -) 500 mg GT BID [facility] Last Admin: 08/14/18 10:17 Dose: 500 mg Loperamide HCl (Imodium -) 2 mg PEG DAILY [facility] Last Admin: 08/14/18 10:16 Dose: 2 mg Ruxolitinib Phosphate [Jakafi] 5 Mg 5 mg GT BID [facility] Last Admin: 08/14/18 10:18 Dose: 5 mg Oseltamivir Phosphate (Tamiflu -) 75 mg PO BID [facility] Stop: 08/18/18 09:59 Last Admin: 08/14/18 10:19 Dose: 75 mg Potassium Chloride (Potassium Chloride Oral Liquid) 40 meq GT DAILY [facility] Last Admin: 08/14/18 10:15 Dose: 40 meq Ranitidine HCl (Zantac Oral Solution -) 150 mg PEG BID [facility] Last Admin: 08/14/18 10:15 Dose: 150 mg Warfarin Sodium (Coumadin -) 2.5 mg PO DAILY@1800 [facility] Last Admin: 08/13/18 20:28 Dose: 2.5 mg - Objective Vital Signs: Vital Signs Temperature 98.1 F 08/14/18 10:00 Pulse Rate 97 H 08/14/18 10:00 Respiratory Rate 17 08/14/18 10:00 Blood Pressure 106/71 08/14/18 10:00 O2 Sat by Pulse Oximetry (%) 96 08/14/18 09:00 Constitutional: Yes: Well Nourished, No Distress, Calm Cardiovascular: Yes: Regular Rate and Rhythm Respiratory: Yes: Regular Gastrointestinal: Yes: Normal Bowel Sounds, Soft Genitourinary: Yes: Incontinence Musculoskeletal: Yes: Muscle Weakness Edema: No Peripheral Pulses WNL: Yes Neurological: Yes: Alert, Lethargy Psychiatric: Yes: Alert Labs: CBC, BMP 08/14/18 08:03 08/14/18 08:03 INR, PTT INR 2.09 (0.83-1.09) H 08/14/18 08:03 Problem List - Problems (1) Hypoxia Assessment/Plan: -Non rebreather, keep Spo2>90% -Pulmonary consult -bronchodilators Code(s): R09.02 - HYPOXEMIA (2) Tachycardia Assessment/Plan: -IVF -telemetry monitoring Code(s): R00.0 - TACHYCARDIA, UNSPECIFIED (3) Influenza A Assessment/Plan: -Tamiflu -ID consult -IVF -Droplet isolation -Tylenol for fever Code(s): J10.1 - FLU DUE TO OTH IDENT INFLUENZA VIRUS W OTH RESP MANIFEST (4) SIRS (systemic inflammatory response syndrome) Code(s): R65.10 - SIRS OF NON-INFECTIOUS ORIGIN W/O ACUTE ORGAN DYSFUNCTION (5) Hodgkin lymphoma Assessment/Plan: -Hematology/onc consult -Continue decadron -Jakafi Code(s): C81.90 - HODGKIN LYMPHOMA, UNSPECIFIED, UNSPECIFIED SITE (6) Anticoagulant long-term use Assessment/Plan: -On Warfarin due to hx of CVA -Monitor INR trend 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
[2018-08-14] MEDS: WARFARIN NA 2.5 MG TABLET (FP) PO SCH (18:24)
[2018-08-14] MEDS: guaiFENesin 200 MG/10 ML 10 ML UNIT-DOSE CUPS PO PRN (18:25)
--- NOTE | 2018-08-14 20:19 | PN ---
Progress Note, Physician Chief Complaint: SOB History of Present Illness: Transferred to [facility] 07/23 tachycardia, which is improving. More alert and talkative today. Endorses significant SOB, cough productive of clear sputum. Son at bedside - Current Medication List Current Medications: Active Medications Acetaminophen (Tylenol -) 650 mg PO Q4H PRN PRN Reason: PAIN OR FEVER Last Admin: 08/14/18 18:25 Dose: 650 mg Albuterol Sulfate (Ventolin 0.083% Nebulizer Soln -) 1 amp NEB Q6H PRN PRN Reason: SHORT OF BREATH/WHEEZING Last Admin: 08/14/18 16:48 Dose: 1 amp Dexamethasone (Decadron -) 4 mg PEG DAILY [facility] Last Admin: 08/14/18 10:16 Dose: 4 mg Gabapentin (Neurontin Oral Liquid -) 250 mg PEG TID [facility] Last Admin: 08/14/18 13:57 Dose: 250 mg Guaifenesin (Robitussin -) 10 ml PO Q4H PRN PRN Reason: COUGH Last Admin: 08/14/18 18:25 Dose: 10 ml Heparin Sodium (Porcine) (Heparin -) 5,000 unit SQ TID [facility] Last Admin: 08/14/18 13:57 Dose: 5,000 unit Piperacillin Sod/Tazobactam (Sod 3.375 gm/ Dextrose) 50 mls @ 100 mls/hr IVPB Q8H-IV [facility]; Protocol Last Admin: 08/14/18 18:24 Dose: 100 mls/hr Vancomycin HCl (Vancomycin (Pre-Docked)) 1,000 mg in 250 mls @ 166.667 mls/hr IVPB Q12H [facility]; Protocol Last Admin: 08/14/18 13:55 Dose: 166.667 mls/hr Azithromycin (Zithromax 500mg Ivpb (Pre-Docked)) 500 mg in 250 mls @ 250 mls/ hr IVPB DAILY [facility] Last Admin: 08/14/18 10:14 Dose: 250 mls/hr Potassium Chloride 40 meq/ (Sodium Chloride) 1,020 mls @ 75 mls/hr IVPB Q13H [facility] Last Admin: 08/14/18 17:36 Dose: 75 mls/hr Levetiracetam (Keppra Oral Solution -) 500 mg GT BID [facility] Last Admin: 08/14/18 10:17 Dose: 500 mg Loperamide HCl (Imodium -) 2 mg PEG DAILY [facility] Last Admin: 08/14/18 10:16 Dose: 2 mg Ruxolitinib Phosphate [Jakafi] 5 Mg 5 mg GT BID [facility] Last Admin: 08/14/18 10:18 Dose: 5 mg Oseltamivir Phosphate (Tamiflu -) 75 mg PO BID [facility] Stop: 08/18/18 09:59 Last Admin: 08/14/18 10:19 Dose: 75 mg Potassium Chloride (Potassium Chloride Oral Liquid) 40 meq GT DAILY [facility] Last Admin: 08/14/18 10:15 Dose: 40 meq Ranitidine HCl (Zantac Oral Solution -) 150 mg PEG BID [facility] Last Admin: 08/14/18 10:15 Dose: 150 mg Warfarin Sodium (Coumadin -) 2.5 mg PO DAILY@1800 [facility] Last Admin: 08/14/18 18:24 Dose: 2.5 mg - Objective Vital Signs: Vital Signs Temperature 97.6 F 08/14/18 18:00 Pulse Rate 101 H 08/14/18 18:00 Respiratory Rate 20 08/14/18 18:00 Blood Pressure 147/90 08/14/18 18:00 O2 Sat by Pulse Oximetry (%) 96 08/14/18 09:00 Constitutional: Yes: No Distress, Calm Eyes: Yes: Conjunctiva Clear Cardiovascular: Yes: Regular Rate and Rhythm Respiratory: Yes: Regular, Cough, Rales, Rhonchi (throughout lungs) Gastrointestinal: Yes: Soft Edema: No Labs: CBC, BMP 08/14/18 08:03 08/14/18 08:03 INR, PTT INR 2.09 (0.83-1.09) H 08/14/18 08:03 Assessment/Plan 37F, SNF resident, with hx CVA, on warfarin, HL s/p allogeneic transplant in 2014, followed at [facility] (Dr. 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 On broad spectrum Abx and Tamiflu. Continues to have SOB and requiring NRB. Please continue both Jakafi (abrupt discontinuation can rapidly cause severe life threatening withdrawal syndrome) and dexamethasone (to prevent adrenal insufficiency as this is a long term care phlebotomist med). Will follow.
[2018-08-15] MEDS: PIPERACILLIN/TAZOB 3.375 GM 3.375 GM in DEXTROSE 5%-WATER - 50 ML IVPB SCH ×2 (02:00→11:13)
[2018-08-15] MEDS ORDERED: PIPERACILLIN/TAZOBACTAM 3.375 GM VIAL IVPB ONE ×4 (03:28→16:27)
[2018-08-15] MEDS ORDERED: DEXTROSE 5%-WATER - 50 ML IVPB ONE ×4 (03:29→16:27)
[2018-08-15] MEDS: VANCOMYCIN 1 GRAM (PRE-DOCKED) 1,000 MG/250 ML BAG IVPB SCH ×2 (03:46→14:36)
[2018-08-15] MEDS: HEPARIN NA (PORCINE) 5,000 UNITS/ML 1ML VIAL SQ SCH ×3 (06:37→23:28)
[2018-08-15] MEDS: GABAPENTIN 250 MG/5 ML ORAL SOLUTION, 470 ML BOTTLE PEG SCH ×3 (06:37→23:30)
[2018-08-15] MEDS: RANITIDINE HCL 150 MG/10 ML UNIT-DOSE PEG SCH ×2 (10:53→23:28)
--- NOTE | 2018-08-15 10:53 | PN ---
Progress Note, Physician History of Present Illness: PULMONARY DROWSY,-RESP DISTRESS,ON NRBM - Current Medication List Current Medications: Active Medications Acetaminophen (Tylenol -) 650 mg PO Q4H PRN PRN Reason: PAIN OR FEVER Last Admin: 08/14/18 18:25 Dose: 650 mg Albuterol Sulfate (Ventolin 0.083% Nebulizer Soln -) 1 amp NEB Q6H PRN PRN Reason: SHORT OF BREATH/WHEEZING Last Admin: 08/14/18 21:27 Dose: 1 amp Dexamethasone (Decadron -) 4 mg PEG DAILY [facility] Last Admin: 08/14/18 10:16 Dose: 4 mg Gabapentin (Neurontin Oral Liquid -) 250 mg PEG TID [facility] Last Admin: 08/15/18 06:37 Dose: 250 mg Guaifenesin (Robitussin -) 10 ml PO Q4H PRN PRN Reason: COUGH Last Admin: 08/14/18 18:25 Dose: 10 ml Heparin Sodium (Porcine) (Heparin -) 5,000 unit SQ TID [facility] Last Admin: 08/15/18 06:37 Dose: 5,000 unit Piperacillin Sod/Tazobactam (Sod 3.375 gm/ Dextrose) 50 mls @ 100 mls/hr IVPB Q8H-IV [facility]; Protocol Last Admin: 08/15/18 02:00 Dose: 100 mls/hr Vancomycin HCl (Vancomycin (Pre-Docked)) 1,000 mg in 250 mls @ 166.667 mls/hr IVPB Q12H [facility]; Protocol Last Admin: 08/15/18 03:46 Dose: 166.667 mls/hr Azithromycin (Zithromax 500mg Ivpb (Pre-Docked)) 500 mg in 250 mls @ 250 mls/ hr IVPB DAILY [facility] Last Admin: 08/14/18 10:14 Dose: 250 mls/hr Potassium Chloride 40 meq/ (Sodium Chloride) 1,020 mls @ 75 mls/hr IVPB Q13H [facility] Last Admin: 08/14/18 17:36 Dose: 75 mls/hr Levetiracetam (Keppra Oral Solution -) 500 mg GT BID [facility] Last Admin: 08/14/18 22:43 Dose: 500 mg Loperamide HCl (Imodium -) 2 mg PEG DAILY [facility] Last Admin: 08/14/18 10:16 Dose: 2 mg Ruxolitinib Phosphate [Jakafi] 5 Mg 5 mg GT BID [facility] Last Admin: 08/14/18 22:43 Dose: 5 mg Oseltamivir Phosphate (Tamiflu -) 75 mg PO BID [facility] Stop: 08/18/18 09:59 Last Admin: 08/14/18 22:44 Dose: 75 mg Potassium Chloride (Potassium Chloride Oral Liquid) 40 meq GT DAILY [facility] Last Admin: 08/14/18 10:15 Dose: 40 meq Ranitidine HCl (Zantac Oral Solution -) 150 mg PEG BID [facility] Last Admin: 08/14/18 22:43 Dose: 150 mg Warfarin Sodium (Coumadin -) 2.5 mg PO DAILY@1800 [facility] Last Admin: 08/14/18 18:24 Dose: 2.5 mg - Objective Vital Signs: Vital Signs Temperature 98.1 F 08/15/18 05:44 Pulse Rate 86 08/15/18 05:44 Respiratory Rate 20 08/15/18 05:44 Blood Pressure 126/50 L 08/15/18 05:44 O2 Sat by Pulse Oximetry (%) 98 08/14/18 21:00 Constitutional: Yes: Well Nourished, Other (DROWSY) Eyes: Yes: WNL HENT: Yes: WNL Neck: Yes: WNL Cardiovascular: Yes: Regular Rate and Rhythm, S1, S2 Respiratory: Yes: Rhonchi (SCATTERED HIRO RHONCHI) Gastrointestinal: Yes: Normal Bowel Sounds, Soft Extremities: Yes: WNL Edema: No Labs: INR, PTT INR 2.09 (0.83-1.09) H 08/14/18 08:03 Problem List - Problems (1) Acute hypoxemic respiratory failure Code(s): J96.01 - ACUTE RESPIRATORY FAILURE WITH HYPOXIA Assessment/Plan Problem List - Problems (1) Hodgkin lymphoma Code(s): C81.90 - HODGKIN LYMPHOMA, UNSPECIFIED, UNSPECIFIED SITE (2) Hypoxia Code(s): R09.02 - HYPOXEMIA (3) Influenza A Code(s): J10.1 - FLU DUE TO OTH IDENT INFLUENZA VIRUS W OTH RESP MANIFEST (4) SIRS (systemic inflammatory response syndrome) Code(s): R65.10 - SIRS OF NON-INFECTIOUS ORIGIN W/O ACUTE ORGAN DYSFUNCTION (5) Tachycardia Code(s): R00.0 - TACHYCARDIA, UNSPECIFIED Assessment/Plan IMP ACUTE HYPOXEMIC RESPIRATORY FAILURE PNEUMONIA SIRS H/O HODGKIN LYMPHOMA S/P BMT,ON CHEMO PLAN ANTIBIOTICS/TAMIFLU IV FLUID SUPPORT NEEDED NIPPV NEEDED SUPPLEMENTAL O2 STEROIDS ANTICOAGULATION MONITOR CXR MONITOR NENA WILSON
[2018-08-15] MEDS: POTASSIUM CHLORIDE ORAL LIQUID 20 MEQ/15 ML GT SCH (10:54)
[2018-08-15] MEDS: LOPERAMIDE HCL 2 MG CAPSULE PEG SCH (10:55)
[2018-08-15] MEDS: levETIRAcetam 500 MG/5 ML ORAL SOLUTION (UNIT-DOSE CUPS) GT SCH ×2 (10:55→23:29)
[2018-08-15] MEDS: DEXAMETHASONE 4 MG TABLET (FP) PEG SCH (10:55)
[2018-08-15] MEDS: RUXOLITINIB PHOSPHATE 5 MG GT SCH ×2 (10:56→23:29)
[2018-08-15] MEDS: OSELTAMIVIR PHOSPHATE 75 MG CAPSULE PO SCH ×2 (10:56→23:29)
[2018-08-15] MEDS: AZITHROMYCIN IVPB 500 MG/250 ML BAG IVPB SCH (11:13)
[2018-08-15] MEDS: ALBUTEROL SO4 0.083% IH SOL 2.5 MG/3 ML VIAL.NEB. NEB PRN ×2 (11:30→23:49)
--- NOTE | 2018-08-15 13:01 | PN ---
Progress Note, Physician History of Present Illness: VERY WEAK APPEARING NO C/O CHEST PAIN/ DYSPNEA/ COUGH BREATHING NON-LABORED ON NRB MASK TEMPS DOWN AFEBRILE WBC IMPROVED - Current Medication List Current Medications: Active Medications Acetaminophen (Tylenol -) 650 mg PO Q4H PRN PRN Reason: PAIN OR FEVER Last Admin: 08/14/18 18:25 Dose: 650 mg Albuterol Sulfate (Ventolin 0.083% Nebulizer Soln -) 1 amp NEB Q6H PRN PRN Reason: SHORT OF BREATH/WHEEZING Last Admin: 08/15/18 11:30 Dose: 1 amp Dexamethasone (Decadron -) 4 mg PEG DAILY [facility] Last Admin: 08/15/18 10:55 Dose: 4 mg Gabapentin (Neurontin Oral Liquid -) 250 mg PEG TID [facility] Last Admin: 08/15/18 06:37 Dose: 250 mg Guaifenesin (Robitussin -) 10 ml PO Q4H PRN PRN Reason: COUGH Last Admin: 08/14/18 18:25 Dose: 10 ml Heparin Sodium (Porcine) (Heparin -) 5,000 unit SQ TID [facility] Last Admin: 08/15/18 06:37 Dose: 5,000 unit Piperacillin Sod/Tazobactam (Sod 3.375 gm/ Dextrose) 50 mls @ 100 mls/hr IVPB Q8H-IV [facility]; Protocol Last Admin: 08/15/18 11:13 Dose: 100 mls/hr Vancomycin HCl (Vancomycin (Pre-Docked)) 1,000 mg in 250 mls @ 166.667 mls/hr IVPB Q12H [facility]; Protocol Last Admin: 08/15/18 03:46 Dose: 166.667 mls/hr Azithromycin (Zithromax 500mg Ivpb (Pre-Docked)) 500 mg in 250 mls @ 250 mls/ hr IVPB DAILY [facility] Last Admin: 08/15/18 11:13 Dose: 250 mls/hr Potassium Chloride 40 meq/ (Sodium Chloride) 1,020 mls @ 75 mls/hr IVPB Q13H [facility] Last Admin: 08/14/18 17:36 Dose: 75 mls/hr Levetiracetam (Keppra Oral Solution -) 500 mg GT BID [facility] Last Admin: 08/15/18 10:55 Dose: 500 mg Loperamide HCl (Imodium -) 2 mg PEG DAILY [facility] Last Admin: 08/15/18 10:55 Dose: 2 mg Ruxolitinib Phosphate [Jakafi] 5 Mg 5 mg GT BID [facility] Last Admin: 08/15/18 10:56 Dose: 5 mg Oseltamivir Phosphate (Tamiflu -) 75 mg PO BID [facility] Stop: 08/18/18 09:59 Last Admin: 08/15/18 10:56 Dose: 75 mg Potassium Chloride (Potassium Chloride Oral Liquid) 40 meq GT DAILY [facility] Last Admin: 08/15/18 10:54 Dose: 40 meq Ranitidine HCl (Zantac Oral Solution -) 150 mg PEG BID [facility] Last Admin: 08/15/18 10:53 Dose: 150 mg Warfarin Sodium (Coumadin -) 2.5 mg PO DAILY@1800 [facility] Last Admin: 08/14/18 18:24 Dose: 2.5 mg - Objective Vital Signs: Vital Signs Temperature 98.1 F 08/15/18 05:44 Pulse Rate 86 08/15/18 05:44 Respiratory Rate 20 08/15/18 09:00 Blood Pressure 126/50 L 08/15/18 05:44 O2 Sat by Pulse Oximetry (%) 98 08/15/18 09:00 Constitutional: Yes: No Distress Eyes: Yes: Conjunctiva Clear Cardiovascular: Yes: Regular Rate and Rhythm, S1, S2 Respiratory: Yes: Diminished Gastrointestinal: Yes: Normal Bowel Sounds, Soft. No: Tenderness Labs: CBC, BMP 08/14/18 08:03 08/14/18 08:03 INR, PTT INR 2.09 (0.83-1.09) H 08/14/18 08:03 Assessment/Plan ACUTE INFLUENZA A BIBASILAR PNEUMONIA LEUKOPENIA- IMPROVED LYMPHOMA CONTINUE EMPIRIC ZOSYN/VANCOMYCIN D/C ZITHROMAX PROGNOSIS GUARDED
--- NOTE | 2018-08-15 13:07 | PN ---
Progress Note, Physician - Current Medication List Current Medications: Active Medications Acetaminophen (Tylenol -) 650 mg PO Q4H PRN PRN Reason: PAIN OR FEVER Last Admin: 08/14/18 18:25 Dose: 650 mg Albuterol Sulfate (Ventolin 0.083% Nebulizer Soln -) 1 amp NEB Q6H PRN PRN Reason: SHORT OF BREATH/WHEEZING Last Admin: 08/15/18 11:30 Dose: 1 amp Dexamethasone (Decadron -) 4 mg PEG DAILY [facility] Last Admin: 08/15/18 10:55 Dose: 4 mg Gabapentin (Neurontin Oral Liquid -) 250 mg PEG TID [facility] Last Admin: 08/15/18 06:37 Dose: 250 mg Guaifenesin (Robitussin -) 10 ml PO Q4H PRN PRN Reason: COUGH Last Admin: 08/14/18 18:25 Dose: 10 ml Heparin Sodium (Porcine) (Heparin -) 5,000 unit SQ TID [facility] Last Admin: 08/15/18 06:37 Dose: 5,000 unit Piperacillin Sod/Tazobactam (Sod 3.375 gm/ Dextrose) 50 mls @ 100 mls/hr IVPB Q8H-IV [facility]; Protocol Last Admin: 08/15/18 11:13 Dose: 100 mls/hr Vancomycin HCl (Vancomycin (Pre-Docked)) 1,000 mg in 250 mls @ 166.667 mls/hr IVPB Q12H [facility]; Protocol Last Admin: 08/15/18 03:46 Dose: 166.667 mls/hr Potassium Chloride 40 meq/ (Sodium Chloride) 1,020 mls @ 75 mls/hr IVPB Q13H [facility] Last Admin: 08/14/18 17:36 Dose: 75 mls/hr Levetiracetam (Keppra Oral Solution -) 500 mg GT BID [facility] Last Admin: 08/15/18 10:55 Dose: 500 mg Loperamide HCl (Imodium -) 2 mg PEG DAILY [facility] Last Admin: 08/15/18 10:55 Dose: 2 mg Ruxolitinib Phosphate [Jakafi] 5 Mg 5 mg GT BID [facility] Last Admin: 08/15/18 10:56 Dose: 5 mg Oseltamivir Phosphate (Tamiflu -) 75 mg PO BID [facility] Stop: 08/18/18 09:59 Last Admin: 08/15/18 10:56 Dose: 75 mg Potassium Chloride (Potassium Chloride Oral Liquid) 40 meq GT DAILY [facility] Last Admin: 08/15/18 10:54 Dose: 40 meq Ranitidine HCl (Zantac Oral Solution -) 150 mg PEG BID [facility] Last Admin: 08/15/18 10:53 Dose: 150 mg Warfarin Sodium (Coumadin -) 2.5 mg PO DAILY@1800 [facility] Last Admin: 08/14/18 18:24 Dose: 2.5 mg - Objective Vital Signs: Vital Signs Temperature 98.1 F 08/15/18 05:44 Pulse Rate 86 08/15/18 05:44 Respiratory Rate 20 08/15/18 09:00 Blood Pressure 126/50 L 08/15/18 05:44 O2 Sat by Pulse Oximetry (%) 98 08/15/18 09:00 Constitutional: Yes: Calm Cardiovascular: Yes: Regular Rate and Rhythm, S1, S2 Respiratory: Yes: Diminished Gastrointestinal: Yes: Normal Bowel Sounds, Soft Labs: CBC, BMP 08/14/18 08:03 08/14/18 08:03 INR, PTT INR 2.09 (0.83-1.09) H 08/14/18 08:03 Problem List - Problems (1) Acute hypoxemic respiratory failure Assessment/Plan: bibasilar pna zosyn/vanco NRB mask Code(s): J96.01 - ACUTE RESPIRATORY FAILURE WITH HYPOXIA (2) Influenza A Assessment/Plan: tamiflu droplet precautions Code(s): J10.1 - FLU DUE TO OTH IDENT INFLUENZA VIRUS W OTH RESP MANIFEST (3) Hypokalemia Assessment/Plan: potassium improved on iv potassium in fluids check magnesium Code(s): E87.6 - HYPOKALEMIA (4) Anticoagulant long-term use Assessment/Plan: hx of cva Code(s): Z79.01 - GAUNTLET PAIRER (CURRENT) USE OF ANTICOAGULANTS (5) Hodgkin lymphoma Assessment/Plan: heme on board on jakafi and dexa Code(s): C81.90 - HODGKIN LYMPHOMA, UNSPECIFIED, UNSPECIFIED SITE
[2018-08-15 14:22] LABS: BASO % 0.1 % (0-2.0); HEMOGLOBIN 9.7 GM/dL (10.7-15.3); LYMPH % 5.1 % (8-40); MCH 25.8 pg (25.7-33.7); MCHC 32.3 g/dl (32.0-36.0); MEAN CELL VOLUME 80.1 fl (80-96); MEAN PLT VOLUME 8.4 fl (7.5-11.1); MONO % 3.2 % (3.8-10.2); NEUT % 91.6 % (42.8-82.8); PLATELET COUNT 244 K/MM3 (134-434); RBC 3.74 M/mm3 (3.60-5.2); RDW 25.1 % (11.6-15.6); WHITE BLOOD COUNT 7.6 K/mm3 (4.0-10.0)
[2018-08-15 15:10] LABS: ALBUMIN 2.9 g/dl (3.4-5.0); ALK PHOS 168 U/L (45-117); ANION GAP 6 MMOL/L (8-16); BILIRUBIN,TOTAL 0.4 mg/dL (0.2-1); BLOOD UREA NITROGEN 9 mg/dL (7-18); CALCIUM 8.6 mg/dL (8.5-10.1); CHLORIDE 109 mmol/L (98-107); CO2 22 mmol/L (21-32); CREATININE 0.2 mg/dL (0.55-1.3); GLUCOSE,RANDOM 143 mg/dL (74-106); MAGNESIUM 1.9 mg/dL (1.8-2.4); POTASSIUM 5.3 mmol/L (3.5-5.1); SGOT/AST 34 U/L (15-37); SGPT/ALT 34 U/L (13-61); SODIUM 137 mmol/L (136-145); TOT PROT 6.3 g/dl (6.4-8.2)
[2018-08-15 15:39] LABS: ANISOCYTOSIS 1+; MACROCYTOSIS 1+; PLATELET ESTIMATE NORMAL
[2018-08-15] MEDS: POTASSIUM CHLORIDE 40 MEQ in SODIUM CHLORIDE 1,000 ML IVPB SCH (15:59)
[2018-08-15] MEDS: guaiFENesin 200 MG/10 ML 10 ML UNIT-DOSE CUPS PO PRN ×2 (16:00→16:08)
[2018-08-15] MEDS: ACETAMINOPHEN 325 MG TABLET (FP) PO PRN ×3 (16:00→23:27)
[2018-08-15] MEDS: SODIUM CHLORIDE 1,000 ML IV SCH (16:40)
[2018-08-15 16:52] LABS: INR 2.49 (0.83-1.09); PROTHROMBIN TIME (PATIENT) 29.7 SEC (9.7-13.0)
--- NOTE | 2018-08-15 17:30 | PN ---
Physical Exam: SUBJECTIVE: Patient seen and examined; getting breathing treatment; tachycardia improved; no fever, chills OBJECTIVE: Vital Signs Period Temp Pulse Resp BP Sys/Nichols Pulse Ox Last 24 Hr 97.6 F-98.6 F 86-118 20-22 102-147/50-90 98-98 GENERAL: The patient is awake, alert, and fully oriented, in no acute distress. LUNGS: decreases breath sounds scattered rhonchi HEART: Regular rate and rhythm, S1, S2 without murmur, rub or gallop. ABDOMEN: Soft, nontender, nondistended, normoactive bowel sounds, no guarding, no rebound, no hepatosplenomegaly, no masses. EXTREMITIES: 2+ pulses, warm, well-perfused, no edema. NEUROLOGICAL: left sided weakness ; hx of stroke PSYCH: Normal mood, normal affect. SKIN: scleroderma changes Laboratory Results - last 24 hr 08/15/18 08/15/18 08/15/18 13:45 13:45 16:00 WBC 7.6 RBC 3.74 Hgb 9.7 L Hct 30.0 L MCV 80.1 MCH 25.8 MCHC 32.3 RDW 25.1 H Plt Count 244 MPV 8.4 Absolute Neuts (auto) 6.9 Neutrophils % 91.6 H Neutrophils % (Manual) 91.8 H Band Neutrophils % 3.1 Lymphocytes % 5.1 L D Lymphocytes % (Manual) 1.0 L D Monocytes % 3.2 L Monocytes % (Manual) 4 Eosinophils % 0.0 D Eosinophils % (Manual) 0.0 Basophils % 0.1 Basophils % (Manual) 0.0 Myelocytes % (Man) 0 Promyelocytes % (Man) 0 Blast Cells % (Manual) 0 Nucleated RBC % 0 Metamyelocytes 0 D Hypochromia 0 Platelet Estimate Normal Polychromasia 1+ Poikilocytosis 1+ Anisocytosis 1+ Microcytosis 1+ Macrocytosis 1+ Schistocytes 1+ PT with INR 29.70 H INR 2.49 H Sodium 137 Potassium 5.3 H Chloride 109 H Carbon Dioxide 22 Anion Gap 6 L BUN 9 Creatinine 0.2 L Creat Clearance w eGFR > 60 Random Glucose 143 H Calcium 8.6 Magnesium 1.9 Total Bilirubin 0.4 AST 34 ALT 34 Alkaline Phosphatase 168 H Total Protein 6.3 L Albumin 2.9 L Active Medications Generic Name Dose Route Start Last Admin Trade Name Freq PRN Reason Stop Dose Admin Acetaminophen 650 mg 08/14/18 01:26 08/15/18 16:09 Tylenol - PO 650 mg Q4H PRN Administration PAIN OR FEVER Albuterol Sulfate 1 amp 08/14/18 01:26 08/15/18 11:30 Ventolin 0.083% Nebulizer Soln - NEB 1 amp Q6H PRN Administration SHORT OF BREATH/WHEEZING Dexamethasone 4 mg 08/14/18 10:00 08/15/18 10:55 Decadron - PEG 4 mg DAILY [facility] Administration Gabapentin 250 mg 08/14/18 06:00 08/15/18 14:39 Neurontin Oral Liquid - PEG 250 mg TID [facility] Administration Guaifenesin 10 ml 08/14/18 01:26 08/15/18 16:08 Robitussin - PO 10 ml Q4H PRN Administration COUGH Heparin Sodium (Porcine) 5,000 unit 08/14/18 06:00 08/15/18 14:36 Heparin - SQ 5,000 unit TID [facility] Administration Piperacillin Sod/Tazobactam 50 mls @ 100 mls/hr 08/13/18 13:00 08/15/18 11:13 Sod 3.375 gm/ Dextrose IVPB 100 mls/hr Q8H-IV [facility] Administration Protocol Vancomycin HCl 1,000 mg in 250 mls @ 166.667 mls/hr 08/13/18 13:00 08/15/18 14:36 Vancomycin (Pre-Docked) IVPB 166.667 mls/hr Q12H [facility] Administration Protocol Sodium Chloride 1,000 mls @ 75 mls/hr 08/15/18 16:45 Normal Saline - IV ASDIR [facility] Levetiracetam 500 mg 08/14/18 10:00 08/15/18 10:55 Keppra Oral Solution - GT 500 mg BID [facility] Administration Loperamide HCl 2 mg 08/14/18 10:00 08/15/18 10:55 Imodium - PEG 2 mg DAILY [facility] Administration Ruxolitinib 5 mg 08/14/18 10:00 08/15/18 10:56 Phosphate [Jakafi] 5 GT 5 mg Mg BID [facility] Administration Oseltamivir Phosphate 75 mg 08/14/18 10:00 08/15/18 10:56 Tamiflu - PO 08/18/18 09:59 75 mg BID [facility] Administration Potassium Chloride 40 meq 08/14/18 10:00 08/15/18 10:54 Potassium Chloride Oral Liquid GT 40 meq DAILY [facility] Administration Ranitidine HCl 150 mg 08/14/18 10:00 08/15/18 10:53 Zantac Oral Solution - PEG 150 mg BID [facility] Administration Warfarin Sodium 2.5 mg 08/13/18 20:00 08/14/18 18:24 Coumadin - PO 2.5 mg DAILY@1800 [facility] Administration ASSESSMENT/PLAN: This is a 37 yo F, SNF resident, with hx CVA, on warfarin, Hodgkin lymphopma s/ p autologous transplant (failed) and allogeneic transplant in 2014, followed at [facility] (Dr. 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 On broad spectrum Abx and Tamiflu. 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 Will follow. Visit type - Emergency Visit Emergency Visit: Yes ED Registration Date: 08/12/18 Care time: The patient presented to the Emergency Department on the above date and was hospitalized for further evaluation of their emergent condition. - New Patient This patient is new to me today: Yes Date on this admission: 08/15/18 - Critical Care Critical Care patient: No
[2018-08-15] MEDS: WARFARIN NA 2.5 MG TABLET (FP) PO SCH (17:54)
--- NOTE | 2018-08-15 21:25 | PN ---
Progress Note (short form) - Note Progress Note: patient seen and eamined reports feeling slightly better afvss Cor: RSR, No murmurs, No gallops Lungs: scattered wheezes Abd: Soft, Normal bowel sounds, No organomegaly Ext:No significant edema labs/eds reviewed a/p 37F, SNF resident, with hx CVA, on warfarin, HL s/p allogeneic transplant in 2014, followed at [facility] (Dr. 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 On broad spectrum Abx and Tamiflu. Continues to have SOB and requiring NRB. Please continue both Jakafi (abrupt discontinuation can rapidly cause severe life threatening withdrawal syndrome) and dexamethasone (to prevent adrenal insufficiency as this is a prison med). Will follow. d/c heparin/patient on coumadin
[2018-08-16] MEDS: VANCOMYCIN 1 GRAM (PRE-DOCKED) 1,000 MG/250 ML BAG IVPB SCH ×2 (01:13→14:07)
[2018-08-16] MEDS: guaiFENesin 200 MG/10 ML 10 ML UNIT-DOSE CUPS PO PRN ×3 (01:14→22:49)
[2018-08-16] MEDS ORDERED: PIPERACILLIN/TAZOBACTAM 3.375 GM VIAL IVPB ONE ×3 (01:54→18:00)
[2018-08-16] MEDS ORDERED: DEXTROSE 5%-WATER - 50 ML IVPB ONE ×3 (01:54→18:00)
[2018-08-16] MEDS: PIPERACILLIN/TAZOB 3.375 GM 3.375 GM in DEXTROSE 5%-WATER - 50 ML IVPB SCH ×3 (02:34→18:13)
[2018-08-16] MEDS: ACETAMINOPHEN 325 MG TABLET (FP) PO PRN ×2 (02:35→23:01)
[2018-08-16] MEDS: GABAPENTIN 250 MG/5 ML ORAL SOLUTION, 470 ML BOTTLE PEG SCH ×3 (05:24→23:00)
[2018-08-16 07:54] LABS: INR 2.45 (0.83-1.09); PROTHROMBIN TIME (PATIENT) 29.2 SEC (9.7-13.0)
[2018-08-16 07:58] LABS: BASO % 0.2 % (0-2.0); EOS % 0.1 % (0-4.5); HEMATOCRIT 26.1 % (32.4-45.2); HEMOGLOBIN 8.6 GM/dL (10.7-15.3); LYMPH % 3.3 % (8-40); MCH 25.8 pg (25.7-33.7); MCHC 32.8 g/dl (32.0-36.0); MEAN CELL VOLUME 78.6 fl (80-96); MEAN PLT VOLUME 8.6 fl (7.5-11.1); MONO % 5.2 % (3.8-10.2); NEUT % 91.2 % (42.8-82.8); PLATELET COUNT 214 K/MM3 (134-434); RBC 3.33 M/mm3 (3.60-5.2); RDW 24.8 % (11.6-15.6); WHITE BLOOD COUNT 7.7 K/mm3 (4.0-10.0)
[2018-08-16 09:07] LABS: ALBUMIN 2.6 g/dl (3.4-5.0); ALK PHOS 138 U/L (45-117); ANION GAP 7 MMOL/L (8-16); BILIRUBIN,TOTAL 0.4 mg/dL (0.2-1); BLOOD UREA NITROGEN 7 mg/dL (7-18); CALCIUM 8.6 mg/dL (8.5-10.1); CHLORIDE 108 mmol/L (98-107); CO2 23 mmol/L (21-32); CREATININE < 0.2 mg/dL (0.55-1.3); GLUCOSE,RANDOM 131 mg/dL (74-106); MAGNESIUM 1.8 mg/dL (1.8-2.4); POTASSIUM 4.3 mmol/L (3.5-5.1); SGOT/AST 24 U/L (15-37); SGPT/ALT 27 U/L (13-61); SODIUM 139 mmol/L (136-145); TOT PROT 5.7 g/dl (6.4-8.2)
[2018-08-16] MEDS: RANITIDINE HCL 150 MG/10 ML UNIT-DOSE PEG SCH ×2 (09:37→23:03)
[2018-08-16] MEDS: LOPERAMIDE HCL 2 MG CAPSULE PEG SCH (09:37)
[2018-08-16] MEDS: POTASSIUM CHLORIDE ORAL LIQUID 20 MEQ/15 ML GT SCH (09:37)
[2018-08-16] MEDS: DEXAMETHASONE 4 MG TABLET (FP) PEG SCH (09:37)
[2018-08-16] MEDS: OSELTAMIVIR PHOSPHATE 75 MG CAPSULE PO SCH ×2 (09:38→22:51)
[2018-08-16] MEDS: levETIRAcetam 500 MG/5 ML ORAL SOLUTION (UNIT-DOSE CUPS) GT SCH ×2 (09:38→22:49)
[2018-08-16] MEDS: RUXOLITINIB PHOSPHATE 5 MG GT SCH ×2 (09:59→23:02)
[2018-08-16 11:21] LABS: ANISOCYTOSIS 1+; MACROCYTOSIS 0; PLATELET ESTIMATE NORMAL; TARGET CELLS 1+
--- NOTE | 2018-08-16 12:48 | PN ---
Progress Note, Physician History of Present Illness: PULMONARY DROWSY,ON 100% NRBM ,-TACHYPNEA - Current Medication List Current Medications: Active Medications Acetaminophen (Tylenol -) 650 mg PO Q4H PRN PRN Reason: PAIN OR FEVER Last Admin: 08/16/18 02:35 Dose: 650 mg Albuterol Sulfate (Ventolin 0.083% Nebulizer Soln -) 1 amp NEB Q6H PRN PRN Reason: SHORT OF BREATH/WHEEZING Last Admin: 08/15/18 23:49 Dose: 1 amp Dexamethasone (Decadron -) 4 mg PEG DAILY [facility] Last Admin: 08/16/18 09:37 Dose: 4 mg Gabapentin (Neurontin Oral Liquid -) 250 mg PEG TID [facility] Last Admin: 08/16/18 05:24 Dose: 250 mg Guaifenesin (Robitussin -) 10 ml PO Q4H PRN PRN Reason: COUGH Last Admin: 08/16/18 10:13 Dose: 10 ml Piperacillin Sod/Tazobactam (Sod 3.375 gm/ Dextrose) 50 mls @ 100 mls/hr IVPB Q8H-IV [facility]; Protocol Last Admin: 08/16/18 09:37 Dose: 100 mls/hr Vancomycin HCl (Vancomycin (Pre-Docked)) 1,000 mg in 250 mls @ 166.667 mls/hr IVPB Q12H [facility]; Protocol Last Admin: 08/16/18 01:13 Dose: 166.667 mls/hr Sodium Chloride (Normal Saline -) 1,000 mls @ 75 mls/hr IV ASDIR [facility] Last Admin: 08/15/18 16:40 Dose: 75 mls/hr Levetiracetam (Keppra Oral Solution -) 500 mg GT BID [facility] Last Admin: 08/16/18 09:38 Dose: 500 mg Loperamide HCl (Imodium -) 2 mg PEG DAILY [facility] Last Admin: 08/16/18 09:37 Dose: 2 mg Ruxolitinib Phosphate [Jakafi] 5 Mg 5 mg GT BID [facility] Last Admin: 08/16/18 09:59 Dose: 5 mg Oseltamivir Phosphate (Tamiflu -) 75 mg PO BID [facility] Stop: 08/18/18 09:59 Last Admin: 08/16/18 09:38 Dose: 75 mg Potassium Chloride (Potassium Chloride Oral Liquid) 40 meq GT DAILY [facility] Last Admin: 08/16/18 09:37 Dose: 40 meq Ranitidine HCl (Zantac Oral Solution -) 150 mg PEG BID [facility] Last Admin: 08/16/18 09:37 Dose: 150 mg Warfarin Sodium (Coumadin -) 2.5 mg PO DAILY@1800 [facility] Last Admin: 08/15/18 17:54 Dose: 2.5 mg - Objective Vital Signs: Vital Signs Temperature 98 F 08/16/18 10:00 Pulse Rate 86 08/16/18 10:00 Respiratory Rate 20 08/16/18 10:00 Blood Pressure 146/88 08/16/18 10:00 O2 Sat by Pulse Oximetry (%) 99 08/15/18 21:00 Constitutional: Yes: Well Nourished, Calm Eyes: Yes: WNL HENT: Yes: WNL Neck: Yes: WNL Cardiovascular: Yes: Regular Rate and Rhythm, S1, S2 Respiratory: Yes: Diminished, Rhonchi (SCATTERED RHONCHI) Gastrointestinal: Yes: Normal Bowel Sounds, Soft Extremities: Yes: WNL Edema: No Labs: CBC, BMP 08/16/18 05:30 08/16/18 05:30 INR, PTT INR 2.45 (0.83-1.09) H 08/16/18 05:30 Problem List - Problems (1) Acute hypoxemic respiratory failure Code(s): J96.01 - ACUTE RESPIRATORY FAILURE WITH HYPOXIA Assessment/Plan Problem List - Problems (1) Hodgkin lymphoma Code(s): C81.90 - HODGKIN LYMPHOMA, UNSPECIFIED, UNSPECIFIED SITE (2) Hypoxia Code(s): R09.02 - HYPOXEMIA (3) Influenza A Code(s): J10.1 - FLU DUE TO OTH IDENT INFLUENZA VIRUS W OTH RESP MANIFEST (4) SIRS (systemic inflammatory response syndrome) Code(s): R65.10 - SIRS OF NON-INFECTIOUS ORIGIN W/O ACUTE ORGAN DYSFUNCTION (5) Tachycardia Code(s): R00.0 - TACHYCARDIA, UNSPECIFIED Assessment/Plan IMP ACUTE HYPOXEMIC RESPIRATORY FAILURE PNEUMONIA SIRS H/O HODGKIN LYMPHOMA S/P BMT,ON CHEMO PLAN ANTIBIOTICS/TAMIFLU IV FLUID NEEDED NIPPV NEEDED SUPPLEMENTAL O2 CONTINUE STEROIDS ANTICOAGULATION MONITOR CXR MONITOR NENA WILSON
[2018-08-16] MEDS: ALBUTEROL SO4 0.083% IH SOL 2.5 MG/3 ML VIAL.NEB. NEB PRN ×2 (13:10→21:26)
--- NOTE | 2018-08-16 13:16 | PN ---
Progress Note, Physician Chief Complaint: loose bm - Current Medication List Current Medications: Active Medications Acetaminophen (Tylenol -) 650 mg PO Q4H PRN PRN Reason: PAIN OR FEVER Last Admin: 08/16/18 02:35 Dose: 650 mg Albuterol Sulfate (Ventolin 0.083% Nebulizer Soln -) 1 amp NEB Q6H PRN PRN Reason: SHORT OF BREATH/WHEEZING Last Admin: 08/15/18 23:49 Dose: 1 amp Dexamethasone (Decadron -) 4 mg PEG DAILY [facility] Last Admin: 08/16/18 09:37 Dose: 4 mg Gabapentin (Neurontin Oral Liquid -) 250 mg PEG TID [facility] Last Admin: 08/16/18 05:24 Dose: 250 mg Guaifenesin (Robitussin -) 10 ml PO Q4H PRN PRN Reason: COUGH Last Admin: 08/16/18 10:13 Dose: 10 ml Piperacillin Sod/Tazobactam (Sod 3.375 gm/ Dextrose) 50 mls @ 100 mls/hr IVPB Q8H-IV [facility]; Protocol Last Admin: 08/16/18 09:37 Dose: 100 mls/hr Vancomycin HCl (Vancomycin (Pre-Docked)) 1,000 mg in 250 mls @ 166.667 mls/hr IVPB Q12H [facility]; Protocol Last Admin: 08/16/18 01:13 Dose: 166.667 mls/hr Sodium Chloride (Normal Saline -) 1,000 mls @ 75 mls/hr IV ASDIR [facility] Last Admin: 08/15/18 16:40 Dose: 75 mls/hr Levetiracetam (Keppra Oral Solution -) 500 mg GT BID [facility] Last Admin: 08/16/18 09:38 Dose: 500 mg Loperamide HCl (Imodium -) 2 mg PEG DAILY [facility] Last Admin: 08/16/18 09:37 Dose: 2 mg Ruxolitinib Phosphate [Jakafi] 5 Mg 5 mg GT BID [facility] Last Admin: 08/16/18 09:59 Dose: 5 mg Oseltamivir Phosphate (Tamiflu -) 75 mg PO BID [facility] Stop: 08/18/18 09:59 Last Admin: 08/16/18 09:38 Dose: 75 mg Potassium Chloride (Potassium Chloride Oral Liquid) 40 meq GT DAILY [facility] Last Admin: 08/16/18 09:37 Dose: 40 meq Ranitidine HCl (Zantac Oral Solution -) 150 mg PEG BID [facility] Last Admin: 08/16/18 09:37 Dose: 150 mg Warfarin Sodium (Coumadin -) 2.5 mg PO DAILY@1800 [facility] Last Admin: 08/15/18 17:54 Dose: 2.5 mg - Objective Vital Signs: Vital Signs Temperature 98 F 08/16/18 10:00 Pulse Rate 86 08/16/18 10:00 Respiratory Rate 20 08/16/18 10:00 Blood Pressure 146/88 08/16/18 10:00 O2 Sat by Pulse Oximetry (%) 99 08/15/18 21:00 Constitutional: Yes: Calm Cardiovascular: Yes: Regular Rate and Rhythm, S1, S2 Respiratory: Yes: On Nasal O2, Rhonchi, Other (NRB) Gastrointestinal: Yes: Normal Bowel Sounds, Soft, Other (peg) Edema: No Labs: CBC, BMP 08/16/18 05:30 08/16/18 05:30 INR, PTT INR 2.45 (0.83-1.09) H 08/16/18 05:30 Problem List - Problems (1) Acute hypoxemic respiratory failure Assessment/Plan: bibasilar pna zosyn/vanco NRB mask Code(s): J96.01 - ACUTE RESPIRATORY FAILURE WITH HYPOXIA (2) Influenza A Assessment/Plan: tamiflu droplet precautions Code(s): J10.1 - FLU DUE TO OTH IDENT INFLUENZA VIRUS W OTH RESP MANIFEST (3) Hypokalemia Assessment/Plan: potassium improved on iv potassium in fluids check magnesium Code(s): E87.6 - HYPOKALEMIA (4) Anticoagulant long-term use Assessment/Plan: hx of cva Code(s): Z79.01 - RESIDENTIAL (CURRENT) USE OF ANTICOAGULANTS (5) Hodgkin lymphoma Assessment/Plan: heme on board on jakafi and dexa Code(s): C81.90 - HODGKIN LYMPHOMA, UNSPECIFIED, UNSPECIFIED SITE
[2018-08-16] MEDS: SODIUM CHLORIDE 1,000 ML IV SCH (14:15)
[2018-08-16] MEDS: WARFARIN NA 2.5 MG TABLET (FP) PO SCH (18:12)
[2018-08-16] MEDS ORDERED: PT OWN MED DRAWER 7, Y5N ONE (21:09)
[2018-08-17] MEDS ORDERED: PIPERACILLIN/TAZOBACTAM 3.375 GM VIAL IVPB ONE ×3 (00:59→18:07)
[2018-08-17] MEDS ORDERED: DEXTROSE 5%-WATER - 50 ML IVPB ONE ×3 (01:00→18:07)
[2018-08-17] MEDS: VANCOMYCIN 1 GRAM (PRE-DOCKED) 1,000 MG/250 ML BAG IVPB SCH ×2 (01:08→12:30)
[2018-08-17] MEDS: PIPERACILLIN/TAZOB 3.375 GM 3.375 GM in DEXTROSE 5%-WATER - 50 ML IVPB SCH ×4 (02:30→18:58)
[2018-08-17] MEDS: GABAPENTIN 250 MG/5 ML ORAL SOLUTION, 470 ML BOTTLE PEG SCH ×5 (05:38→22:06)
[2018-08-17] MEDS: ALBUTEROL SO4 0.083% IH SOL 2.5 MG/3 ML VIAL.NEB. NEB PRN ×2 (10:11→19:58)
[2018-08-17] MEDS: DEXAMETHASONE 4 MG TABLET (FP) PEG SCH (10:59)
[2018-08-17] MEDS: LOPERAMIDE HCL 2 MG CAPSULE PEG SCH (10:59)
[2018-08-17] MEDS: POTASSIUM CHLORIDE ORAL LIQUID 20 MEQ/15 ML GT SCH (11:00)
[2018-08-17] MEDS: levETIRAcetam 500 MG/5 ML ORAL SOLUTION (UNIT-DOSE CUPS) GT SCH ×2 (11:00→22:06)
[2018-08-17] MEDS: RUXOLITINIB PHOSPHATE 5 MG GT SCH ×2 (11:01→22:06)
[2018-08-17] MEDS: OSELTAMIVIR PHOSPHATE 75 MG CAPSULE PO SCH ×2 (11:02→22:07)
[2018-08-17] MEDS: guaiFENesin 200 MG/10 ML 10 ML UNIT-DOSE CUPS PO PRN ×2 (11:02→22:26)
[2018-08-17] MEDS: ACETAMINOPHEN 325 MG TABLET (FP) PO PRN (11:03)
[2018-08-17] MEDS: RANITIDINE HCL 150 MG/10 ML UNIT-DOSE PEG SCH ×2 (11:03→22:07)
--- NOTE | 2018-08-17 12:24 | PN ---
Progress Note, Physician History of Present Illness: PULMONARY AWAKE ON 100% NRBM TACHYPNEIC,C/O SOB - Current Medication List Current Medications: Active Medications Acetaminophen (Tylenol -) 650 mg PO Q4H PRN PRN Reason: PAIN OR FEVER Last Admin: 08/17/18 11:03 Dose: 650 mg Albuterol Sulfate (Ventolin 0.083% Nebulizer Soln -) 1 amp NEB Q6H PRN PRN Reason: SHORT OF BREATH/WHEEZING Last Admin: 08/17/18 10:11 Dose: 1 amp Dexamethasone (Decadron -) 4 mg PEG DAILY [facility] Last Admin: 08/17/18 10:59 Dose: 4 mg Gabapentin (Neurontin Oral Liquid -) 250 mg PEG TID [facility] Last Admin: 08/17/18 05:38 Dose: 250 mg Guaifenesin (Robitussin -) 10 ml PO Q4H PRN PRN Reason: COUGH Last Admin: 08/17/18 11:02 Dose: 10 ml Piperacillin Sod/Tazobactam (Sod 3.375 gm/ Dextrose) 50 mls @ 100 mls/hr IVPB Q8H-IV [facility]; Protocol Last Admin: 08/17/18 10:59 Dose: 100 mls/hr Vancomycin HCl (Vancomycin (Pre-Docked)) 1,000 mg in 250 mls @ 166.667 mls/hr IVPB Q12H [facility]; Protocol Last Admin: 08/17/18 01:08 Dose: 166.667 mls/hr Sodium Chloride (Normal Saline -) 1,000 mls @ 75 mls/hr IV ASDIR [facility] Last Admin: 08/16/18 14:15 Dose: 75 mls/hr Levetiracetam (Keppra Oral Solution -) 500 mg GT BID [facility] Last Admin: 08/17/18 11:00 Dose: 500 mg Loperamide HCl (Imodium -) 2 mg PEG DAILY [facility] Last Admin: 08/17/18 10:59 Dose: Not Given Ruxolitinib Phosphate [Jakafi] 5 Mg 5 mg GT BID [facility] Last Admin: 08/17/18 11:01 Dose: 5 mg Oseltamivir Phosphate (Tamiflu -) 75 mg PO BID [facility] Stop: 08/18/18 09:59 Last Admin: 08/17/18 11:02 Dose: 75 mg Potassium Chloride (Potassium Chloride Oral Liquid) 40 meq GT DAILY [facility] Last Admin: 08/17/18 11:00 Dose: 40 meq Ranitidine HCl (Zantac Oral Solution -) 150 mg PEG BID [facility] Last Admin: 08/17/18 11:03 Dose: 150 mg Warfarin Sodium (Coumadin -) 2.5 mg PO DAILY@1800 [facility] Last Admin: 08/16/18 18:12 Dose: 2.5 mg - Objective Vital Signs: Vital Signs Temperature 979 F H 08/16/18 22:00 Pulse Rate 78 08/16/18 22:00 Respiratory Rate 16 08/16/18 22:00 Blood Pressure 136/70 08/16/18 22:00 O2 Sat by Pulse Oximetry (%) 96 08/16/18 21:00 Constitutional: Yes: Well Nourished, Other (TACHYPNEIC) Eyes: Yes: WNL HENT: Yes: WNL Neck: Yes: WNL Cardiovascular: Yes: Regular Rate and Rhythm, S1, S2 Respiratory: Yes: Diminished, Tachypnea Gastrointestinal: Yes: Normal Bowel Sounds, Soft Extremities: Yes: WNL Labs: CBC, BMP Problem List - Problems (1) Acute hypoxemic respiratory failure Code(s): J96.01 - ACUTE RESPIRATORY FAILURE WITH HYPOXIA Assessment/Plan Problem List - Problems (1) Hodgkin lymphoma Code(s): C81.90 - HODGKIN LYMPHOMA, UNSPECIFIED, UNSPECIFIED SITE (2) Hypoxia Code(s): R09.02 - HYPOXEMIA (3) Influenza A Code(s): J10.1 - FLU DUE TO OTH IDENT INFLUENZA VIRUS W OTH RESP MANIFEST (4) SIRS (systemic inflammatory response syndrome) Code(s): R65.10 - SIRS OF NON-INFECTIOUS ORIGIN W/O ACUTE ORGAN DYSFUNCTION (5) Tachycardia Code(s): R00.0 - TACHYCARDIA, UNSPECIFIED Assessment/Plan IMP ACUTE HYPOXEMIC RESPIRATORY FAILURE PNEUMONIA SIRS H/O HODGKIN LYMPHOMA S/P BMT,ON CHEMO PLAN ANTIBIOTICS/TAMIFLU IV FLUID NEEDED NIPPV NEEDED SUPPLEMENTAL O2 STEROIDS ANTICOAGULATION MONITOR CXR MONITOR NENA WILSON
--- NOTE | 2018-08-17 14:14 | PN ---
Physical Exam: SUBJECTIVE: Patient seen and examined; respiratory difficulty OBJECTIVE: Vital Signs Period Temp Pulse Resp BP Sys/Nichols Pulse Ox Last 24 Hr 97.7 F-979 F 70-90 16-20 128-140/70-86 96 GENERAL: The patient is awake, alert, on non rebreather HEAD: Normal with no signs of trauma. EYES: PERRL, extraocular movements intact, sclera anicteric, conjunctiva clear. No ptosis. ENT: Ears normal, nares patent, oropharynx clear without exudates, moist mucous membranes. NECK: Trachea midline, full range of motion, supple. LUNGS: Breath sounds equal, clear to auscultation bilaterally, no wheezes, no crackles, no accessory muscle use. HEART: Regular rate and rhythm, S1, S2 without murmur, rub or gallop. ABDOMEN: Soft, nontender, nondistended, normoactive bowel sounds, no guarding, no rebound, no hepatosplenomegaly, no masses. EXTREMITIES: 2+ pulses, warm, well-perfused, no edema. NEUROLOGICAL: Cranial nerves II through XII grossly intact. Normal speech, gait not observed. PSYCH: Normal mood, normal affect. SKIN: scleroderma changes; lacy Active Medications Generic Name Dose Route Start Last Admin Trade Name Freq PRN Reason Stop Dose Admin Acetaminophen 650 mg 08/14/18 01:26 08/17/18 11:03 Tylenol - PO 650 mg Q4H PRN Administration PAIN OR FEVER Albuterol Sulfate 1 amp 08/14/18 01:26 08/17/18 10:11 Ventolin 0.083% Nebulizer Soln - NEB 1 amp Q6H PRN Administration SHORT OF BREATH/WHEEZING Dexamethasone 4 mg 08/14/18 10:00 08/17/18 10:59 Decadron - PEG 4 mg DAILY [facility] Administration Gabapentin 250 mg 08/14/18 06:00 08/17/18 05:38 Neurontin Oral Liquid - PEG 250 mg TID [facility] Administration Guaifenesin 10 ml 08/14/18 01:26 08/17/18 11:02 Robitussin - PO 10 ml Q4H PRN Administration COUGH Piperacillin Sod/Tazobactam 50 mls @ 100 mls/hr 08/13/18 13:00 08/17/18 10:59 Sod 3.375 gm/ Dextrose IVPB 100 mls/hr Q8H-IV [facility] Administration Protocol Vancomycin HCl 1,000 mg in 250 mls @ 166.667 mls/hr 08/13/18 13:00 08/17/18 01:08 Vancomycin (Pre-Docked) IVPB 166.667 mls/hr Q12H [facility] Administration Protocol Sodium Chloride 1,000 mls @ 75 mls/hr 08/15/18 16:45 08/16/18 14:15 Normal Saline - IV 75 mls/hr ASDIR [facility] Administration Levetiracetam 500 mg 08/14/18 10:00 08/17/18 11:00 Keppra Oral Solution - GT 500 mg BID [facility] Administration Loperamide HCl 2 mg 08/14/18 10:00 08/17/18 10:59 Imodium - PEG Not Given DAILY [facility] Ruxolitinib 5 mg 08/14/18 10:00 08/17/18 11:01 Phosphate [Jakafi] 5 GT 5 mg Mg BID [facility] Administration Oseltamivir Phosphate 75 mg 08/14/18 10:00 08/17/18 11:02 Tamiflu - PO 08/18/18 09:59 75 mg BID [facility] Administration Potassium Chloride 40 meq 08/14/18 10:00 08/17/18 11:00 Potassium Chloride Oral Liquid GT 40 meq DAILY [facility] Administration Ranitidine HCl 150 mg 08/14/18 10:00 08/17/18 11:03 Zantac Oral Solution - PEG 150 mg BID [facility] Administration Warfarin Sodium 2.5 mg 08/13/18 20:00 08/16/18 18:12 Coumadin - PO 2.5 mg DAILY@1800 [facility] Administration ASSESSMENT/PLAN: This is a 37 yo F, SNF resident, with hx CVA, on warfarin, Hodgkin lymphopma s/ p autologous transplant (failed) and allogeneic transplant in 2014, followed at [facility] (Dr. 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 On broad spectrum Abx and Tamiflu. NHL GVHD Influnenza + Respiratory distress -continue both Jakafi and dexamethasone (to prevent adrenal insufficiency as this is a group home med). -supp o2 -f/u cxr Visit type - Emergency Visit Emergency Visit: Yes ED Registration Date: 08/12/18 Care time: The patient presented to the Emergency Department on the above date and was hospitalized for further evaluation of their emergent condition. - New Patient This patient is new to me today: No - Critical Care Critical Care patient: No
--- NOTE | 2018-08-17 15:46 | PN ---
Progress Note, Physician History of Present Illness: MORE AWAKE AND ALERT APPEARING BREATHING NON-LABORED ON NRB MASK TEMPS DOWN AFEBRILE WBC WNL - Current Medication List Current Medications: Active Medications Acetaminophen (Tylenol -) 650 mg PO Q4H PRN PRN Reason: PAIN OR FEVER Last Admin: 08/17/18 11:03 Dose: 650 mg Albuterol Sulfate (Ventolin 0.083% Nebulizer Soln -) 1 amp NEB Q6H PRN PRN Reason: SHORT OF BREATH/WHEEZING Last Admin: 08/17/18 10:11 Dose: 1 amp Dexamethasone (Decadron -) 4 mg PEG DAILY [facility] Last Admin: 08/17/18 10:59 Dose: 4 mg Gabapentin (Neurontin Oral Liquid -) 250 mg PEG TID [facility] Last Admin: 08/17/18 05:38 Dose: 250 mg Guaifenesin (Robitussin -) 10 ml PO Q4H PRN PRN Reason: COUGH Last Admin: 08/17/18 11:02 Dose: 10 ml Piperacillin Sod/Tazobactam (Sod 3.375 gm/ Dextrose) 50 mls @ 100 mls/hr IVPB Q8H-IV [facility]; Protocol Last Admin: 08/17/18 10:59 Dose: 100 mls/hr Vancomycin HCl (Vancomycin (Pre-Docked)) 1,000 mg in 250 mls @ 166.667 mls/hr IVPB Q12H [facility]; Protocol Last Admin: 08/17/18 01:08 Dose: 166.667 mls/hr Sodium Chloride (Normal Saline -) 1,000 mls @ 75 mls/hr IV [facility] Last Admin: 08/16/18 14:15 Dose: 75 mls/hr Levetiracetam (Keppra Oral Solution -) 500 mg GT BID [facility] Last Admin: 08/17/18 11:00 Dose: 500 mg Loperamide HCl (Imodium -) 2 mg PEG DAILY [facility] Last Admin: 08/17/18 10:59 Dose: Not Given Ruxolitinib Phosphate [Jakafi] 5 Mg 5 mg GT BID [facility] Last Admin: 08/17/18 11:01 Dose: 5 mg Oseltamivir Phosphate (Tamiflu -) 75 mg PO BID [facility] Stop: 08/18/18 09:59 Last Admin: 08/17/18 11:02 Dose: 75 mg Potassium Chloride (Potassium Chloride Oral Liquid) 40 meq GT DAILY [facility] Last Admin: 08/17/18 11:00 Dose: 40 meq Ranitidine HCl (Zantac Oral Solution -) 150 mg PEG BID [facility] Last Admin: 08/17/18 11:03 Dose: 150 mg Warfarin Sodium (Coumadin -) 2.5 mg PO DAILY@1800 [facility] Last Admin: 08/16/18 18:12 Dose: 2.5 mg - Objective Vital Signs: Vital Signs Temperature 979 F H 08/16/18 22:00 Pulse Rate 78 08/16/18 22:00 Respiratory Rate 16 08/16/18 22:00 Blood Pressure 136/70 08/16/18 22:00 O2 Sat by Pulse Oximetry (%) 96 08/16/18 21:00 Constitutional: Yes: No Distress, Cachectic Cardiovascular: Yes: Regular Rate and Rhythm, S1, S2 Respiratory: Yes: Diminished Gastrointestinal: Yes: Normal Bowel Sounds, Soft. No: Tenderness Edema: Yes Labs: CBC, BMP 08/16/18 05:30 08/16/18 05:30 INR, PTT INR 2.45 (0.83-1.09) H 08/16/18 05:30 Assessment/Plan ACUTE INFLUENZA A BIBASILAR PNEUMONIA LEUKOPENIA- IMPROVED LYMPHOMA CONTINUE EMPIRIC ZOSYN #6 D/C VANCOMYCIN PROGNOSIS GUARDED
[2018-08-17] MEDS: SODIUM CHLORIDE 1,000 ML IV SCH (17:04)
--- NOTE | 2018-08-17 17:22 | PN ---
Progress Note, Physician Chief Complaint: Influenza A History of Present Illness: Previous notes and events reviewed awake and alert NAD continue to have SOB tachycardic 92% O2 on NRB - Current Medication List Current Medications: Active Medications Acetaminophen (Tylenol -) 650 mg PO Q4H PRN PRN Reason: PAIN OR FEVER Last Admin: 08/17/18 11:03 Dose: 650 mg Albuterol Sulfate (Ventolin 0.083% Nebulizer Soln -) 1 amp NEB Q6H PRN PRN Reason: SHORT OF BREATH/WHEEZING Last Admin: 08/17/18 10:11 Dose: 1 amp Dexamethasone (Decadron -) 4 mg PEG DAILY [facility] Last Admin: 08/17/18 10:59 Dose: 4 mg Gabapentin (Neurontin Oral Liquid -) 250 mg PEG TID [facility] Last Admin: 08/17/18 17:05 Dose: 250 mg Guaifenesin (Robitussin -) 10 ml PO Q4H PRN PRN Reason: COUGH Last Admin: 08/17/18 11:02 Dose: 10 ml Piperacillin Sod/Tazobactam (Sod 3.375 gm/ Dextrose) 50 mls @ 100 mls/hr IVPB Q8H-IV [facility]; Protocol Last Admin: 08/17/18 10:59 Dose: 100 mls/hr Sodium Chloride (Normal Saline -) 1,000 mls @ 75 mls/hr IV ASDIR [facility] Last Admin: 08/17/18 17:04 Dose: Not Given Levetiracetam (Keppra Oral Solution -) 500 mg GT BID [facility] Last Admin: 08/17/18 11:00 Dose: 500 mg Loperamide HCl (Imodium -) 2 mg PEG DAILY [facility] Last Admin: 08/17/18 10:59 Dose: Not Given Ruxolitinib Phosphate [Jakafi] 5 Mg 5 mg GT BID [facility] Last Admin: 08/17/18 11:01 Dose: 5 mg Oseltamivir Phosphate (Tamiflu -) 75 mg PO BID [facility] Stop: 08/18/18 09:59 Last Admin: 08/17/18 11:02 Dose: 75 mg Potassium Chloride (Potassium Chloride Oral Liquid) 40 meq GT DAILY [facility] Last Admin: 08/17/18 11:00 Dose: 40 meq Ranitidine HCl (Zantac Oral Solution -) 150 mg PEG BID [facility] Last Admin: 08/17/18 11:03 Dose: 150 mg Warfarin Sodium (Coumadin -) 2.5 mg PO DAILY@1800 [facility] Last Admin: 08/16/18 18:12 Dose: 2.5 mg - Objective Vital Signs: Vital Signs Temperature 98.2 F 08/17/18 13:00 Pulse Rate 108 H 08/17/18 13:00 Respiratory Rate 20 08/17/18 13:00 Blood Pressure 130/78 08/17/18 13:00 O2 Sat by Pulse Oximetry (%) 92 L 08/17/18 13:00 Constitutional: Yes: Mild Distress Eyes: Yes: Conjunctiva Clear HENT: Yes: Atraumatic Cardiovascular: Yes: Tachycardia Respiratory: Yes: Diminished, On Venti-Mask Gastrointestinal: Yes: Normal Bowel Sounds, Soft Genitourinary: Yes: Incontinence Musculoskeletal: Yes: Muscle Weakness Peripheral Pulses WNL: Yes Neurological: Yes: Alert, Oriented Psychiatric: Yes: Alert, Oriented Labs: CBC, BMP 08/16/18 05:30 08/16/18 05:30 INR, PTT INR 2.45 (0.83-1.09) H 08/16/18 05:30 Microbiology 08/12/18 17:40 Blood - Peripheral Venous Blood Culture - Preliminary NO GROWTH OBTAINED AFTER 96 HOURS, INCUBATION TO CONTINUE FOR 1 DAYS. 08/12/18 17:40 Blood - Peripheral Venous Blood Culture - Preliminary NO GROWTH OBTAINED AFTER 96 HOURS, INCUBATION TO CONTINUE FOR 1 DAYS. 08/12/18 22:00 Urine - Urine Clean Catch Urine Culture - Final 08/12/18 22:00 Urine For Antigen Detection Legionella Antigen - Final Problem List - Problems (1) Acute hypoxemic respiratory failure Assessment/Plan: -Pulmonary on board -O2 via NRB -bronchodilators -keep SpO2 >90% -pending repeat CXR results Code(s): J96.01 - ACUTE RESPIRATORY FAILURE WITH HYPOXIA (2) Anticoagulant long-term use Assessment/Plan: -continue with coumadin -daily INR with range 2-3 Code(s): Z79.01 - RETIREMENT (CURRENT) USE OF ANTICOAGULANTS (3) Hodgkin lymphoma Assessment/Plan: -hematology/oncology on board -continue with Jakafi and decadron Code(s): C81.90 - HODGKIN LYMPHOMA, UNSPECIFIED, UNSPECIFIED SITE (4) Influenza A Assessment/Plan: -Influenza A positve -continue tamiflu -droplet isolation -ID on board -tylenol for temp >100F Code(s): J10.1 - FLU DUE TO OTH IDENT INFLUENZA VIRUS W OTH RESP MANIFEST (5) SIRS (systemic inflammatory response syndrome) Assessment/Plan: -ID on board -continue with zosyn IV Code(s): R65.10 - SIRS OF NON-INFECTIOUS ORIGIN W/O ACUTE ORGAN DYSFUNCTION (6) Tachycardia Assessment/Plan: -continue tele monitoring -if continue to be tachycardic >110bpm cardiology consult Code(s): R00.0 - TACHYCARDIA, UNSPECIFIED Assessment/Plan see problem list dvt ppx
[2018-08-17] MEDS: WARFARIN NA 2.5 MG TABLET (FP) PO SCH (18:58)
[2018-08-17] MEDS ORDERED: cloNIDine HCL 0.1 MG TABLET PO ONE (21:45)
[2018-08-17] MEDS ORDERED: FUROSEMIDE 40 MG/4 ML INJECTABLE VIAL IVPUSH ONE (21:49)
[2018-08-17] MEDS ORDERED: NITROGLYCERIN SUBLINGUAL 1/150 0.4 MG TAB SL PRN (21:59)
[2018-08-17] MEDS ORDERED: METOPROLOL TARTRATE 5 MG/5 ML VIAL IVPUSH ONE (22:19)
--- NOTE | 2018-08-17 22:34 | HOSP ---
Physical Examination Vital Signs: Vital Signs Temperature 97.0 F L 08/17/18 17:30 Pulse Rate 95 H 08/17/18 17:30 Respiratory Rate 18 08/17/18 17:30 Blood Pressure 127/89 08/17/18 17:30 O2 Sat by Pulse Oximetry (%) 92 L 08/17/18 13:00 Labs: CBC, BMP 08/16/18 05:30 08/16/18 05:30 Hospitalist Encounter Assessment: I was called to assess patient. She was found to be tachypneic, not able to speak in full sentences, on NRB. CXR from earlier today showed b/l pleural effusions. She is treated for pneumonia and influenza. EKG showed afib with RVR with no acute ischemic changes. Order troponin, will place on bipap, abg, Lasix IV, NGL SL, and likely transfer to ICU.
[2018-08-17 23:01] LABS: ARTERIAL BLD GAS O2 SATURATION 91.7 % (90-98.9); ARTERIAL BLOOD GAS BASE EXCESS 0.4 meq/l (-2-2); ARTERIAL BLOOD GAS PCO2 48.5 mmHg (35-45); ARTERIAL BLOOD GAS PO2 64.6 mmHg (80-100); ARTERIAL BLOOD GAS pH 7.35 (7.35-7.45)
[2018-08-17 23:02] LABS: ALLENS TEST POSITIVE
--- NOTE | 2018-08-17 23:13 | CONSULT ---
Consult Consult Specialty:: ICU Reason for Consultation:: acute respiratory distress. - History of Present Illness Chief Complaint: shortness of breath. History of Present Illness: 37F with a PMH of hodgkins lymphoma (currently on chemo, and s/p BMTx2-2011, 2013), on immunosuppresive meds- Dexamethasone, Ruxolitinib Phosphate [Jakafi], c/o complaining of generalized weakness, malaise, headache for the last 3 days.She was admitted to telemetry and found to be PNA 2/2 Influenza started on Zosyn and Tamiflu. This evening she was found to be in acute respiratory distress while on NC, O2 saturation in mid 80's. Placed on non-rebreather and staruation came up to 96% but continues to have accessory muscle use and increased work of breathing. SEKG showed afib with RVR with rate of 140. She was placed on Bipap , abg ordered, given stat dose of lasix. She denies CP, BRANNON, abdominal pain, nausea or vomiting. - History Source History Provided By: Patient Limitations to Obtaining History: No Limitations - Past Medical History CHILD'S NURSE: No: Alzheimer's Cardio/Vascular: No: AFIB Pulmonary: No: Asthma Gastrointestinal: No: Ascites Hepatobiliary: No: Cirrhosis Renal/: No: Renal Failure ...: No - Alcohol/Substance Use Hx Alcohol Use: No - Smoking History Smoking history: Never smoked Have you smoked in the past 12 months: No - Social History Usual Living Arrangement: Intermediate ADL: Support Services History of Recent Travel: No Home Medications - Allergies Allergies/Adverse Reactions: Allergies Allergy/AdvReac Type Severity Reaction Status Date / Time bleomycin Allergy Verified 08/12/18 16:26 nut - unspecified Allergy Verified 08/12/18 16:27 peanut Allergy Verified 08/12/18 16:27 rivaroxaban Allergy Verified 08/12/18 16:27 - Home Medications Home Medications: Ambulatory Orders Cholecalciferol (Vitamin D3) [Vitamin D3] 5,000 unit PEG WEEKLY 08/12/18 Dexamethasone [Decadron] 5 ml PO DAILY 08/12/18 Dextran/Hypromellose/Glycerin [Genteal Tears 0.1%-0.2%-0.3%] 1 drop OU TID 08/12 Erythromycin Oral Suspension [Eryped Oral Suspension -] 6.3 ml PEG TID 08/12/18 Famotidine 20 mg PEG BID 08/12/18 Gabapentin Liquid [Neurontin Oral Liquid -] 250 mg PEG TID 08/12/18 Hydrophilic Ointment [Dermafix] 1 applic TP BID 08/12/18 Lidocaine 5% Top. Ointment [Xylocaine 5% Top. Ointment] 1 applic TP BID Loperamide HCl [Imodium A-D] 2 mg PEG DAILY 08/12/18 Potassium Chloride [Klor-Con] 20 meq GT DAILY 08/12/18 Ruxolitinib Phosphate [Jakafi] 5 mg GT BID 08/12/18 Warfarin Na [Coumadin] 2.5 mg PO ASDIR 08/12/18 Warfarin Sodium [Coumadin] 4 mg PO ASDIR 08/12/18 levETIRAcetam [levETIRAcetam ORAL SUSPENSION] 500 mg GT BID 08/12/18 Ondansetron HCl [Zofran] 4 mg PO TID PRN 08/13/18 Ruxolitinib Phosphate [Jakafi] 5 mg PO BID 08/13/18 Family Disease History - Family Disease History Family History: Unremarkable Review of Systems - Review of Systems Constitutional: reports: No Symptoms Neck: reports: No Symptoms Cardiovascular: reports: Palpitations, Shortness of Breath Respiratory: reports: SOB Gastrointestinal: reports: No Symptoms Psychiatric: reports: No Symptoms Physical Exam Vital Signs: Vital Signs Temperature 97.0 F L 08/17/18 17:30 Pulse Rate 95 H 08/17/18 17:30 Respiratory Rate 18 08/17/18 17:30 Blood Pressure 127/89 08/17/18 17:30 O2 Sat by Pulse Oximetry (%) 92 L 08/17/18 13:00 Constitutional: Yes: Mild Distress, Thin Eyes: Yes: Conjunctiva Clear, EOM Intact HENT: Yes: Atraumatic, Normocephalic Neck: Yes: Supple, Trachea Midline Cardiovascular: Yes: Tachycardia, Pulse Irregular, S1, S2. No: JVD, Gallop, Murmur Respiratory: Yes: Diminished, On Venti-Mask, Poor Air Entry, Tachypnea Gastrointestinal: Yes: Normal Bowel Sounds, Soft. No: Distention, Tenderness, Vomiting Edema: No Peripheral Pulses WNL: Yes Integumentary: Yes: Other (sclerodermal changes.) Neurological: Yes: Alert Psychiatric: Yes: Alert, Oriented Labs: CBC, BMP 08/16/18 05:30 08/16/18 05:30 Imaging - Results Chest X-ray: Image Reviewed (new RLL infiltrate vs. effusion.) Assessment/Plan A:37F with a PMH of hodgkins lymphoma (currently on chemo, and s/p BMTx2-2011, 2013), on immunosuppresive meds- Dexamethasone, Ruxolitinib Phosphate [Jakafi], c/o complaining of generalized weakness, malaise, headache for the last 3 days found to have PNA presented with acute respiratory distress. Plan: NEURO: * awake and alert * monitor for signs of altered mental status. PULM: * Start NIPPV with Bilevel * repeat ABG in one hour * BD TX PRN. * maintain SpO2 > 90% * Continue Abx and steroids. CV: * Afib with RVR on EKG- given Lopressor * Lasix 40mg IV stat * continue to monitor on tele ID: * Bibasilar PNA- acute influenza A * Continue Abx and Antivirals. * afebrile * WBC wnl * ID on board. DISPO:Can be monitored on telemetry. If patient continues have increased work of breathing on NIPPV will accept to ICU.
[2018-08-18] MEDS ORDERED: PIPERACILLIN/TAZOBACTAM 3.375 GM VIAL IVPB ONE ×3 (03:29→17:33)
[2018-08-18] MEDS ORDERED: DEXTROSE 5%-WATER - 50 ML IVPB ONE ×3 (03:30→17:33)
[2018-08-18] MEDS: PIPERACILLIN/TAZOB 3.375 GM 3.375 GM in DEXTROSE 5%-WATER - 50 ML IVPB SCH ×3 (03:40→17:43)
[2018-08-18] MEDS: GABAPENTIN 250 MG/5 ML ORAL SOLUTION, 470 ML BOTTLE PEG SCH ×3 (05:59→21:38)
[2018-08-18 08:50] LABS: ARTERIAL BLD GAS O2 SATURATION 99.1 % (90-98.9); ARTERIAL BLOOD GAS PCO2 49.5 mmHg (35-45); ARTERIAL BLOOD GAS pH 7.36 (7.35-7.45)
[2018-08-18 08:53] LABS: ALLENS TEST POSITIVE
[2018-08-18] MEDS: RUXOLITINIB PHOSPHATE 5 MG GT SCH ×2 (09:58→21:38)
[2018-08-18] MEDS: LOPERAMIDE HCL 2 MG CAPSULE PEG SCH (09:58)
[2018-08-18] MEDS: DEXAMETHASONE 4 MG TABLET (FP) PEG SCH (09:58)
[2018-08-18] MEDS: RANITIDINE HCL 150 MG/10 ML UNIT-DOSE PEG SCH ×2 (09:59→21:37)
[2018-08-18] MEDS: levETIRAcetam 500 MG/5 ML ORAL SOLUTION (UNIT-DOSE CUPS) GT SCH ×2 (10:11→21:39)
[2018-08-18] MEDS: ACETAMINOPHEN 325 MG TABLET (FP) PO PRN ×2 (10:44→21:43)
[2018-08-18] MEDS: POTASSIUM CHLORIDE ORAL LIQUID 20 MEQ/15 ML GT SCH (11:11)
--- NOTE | 2018-08-18 11:30 | PN ---
Progress Note, Physician Chief Complaint: over night events reviwed breathing better on biap got iv lasix ivf stopped - Current Medication List Current Medications: Active Medications Acetaminophen (Tylenol -) 650 mg PO Q4H PRN PRN Reason: PAIN OR FEVER Last Admin: 08/18/18 10:44 Dose: 650 mg Albuterol Sulfate (Ventolin 0.083% Nebulizer Soln -) 1 amp NEB Q6H PRN PRN Reason: SHORT OF BREATH/WHEEZING Last Admin: 08/17/18 19:58 Dose: 1 amp Dexamethasone (Decadron -) 4 mg PEG DAILY [facility] Last Admin: 08/18/18 09:58 Dose: 4 mg Gabapentin (Neurontin Oral Liquid -) 250 mg PEG TID [facility] Last Admin: 08/18/18 05:59 Dose: 250 mg Guaifenesin (Robitussin -) 10 ml PO Q4H PRN PRN Reason: COUGH Last Admin: 08/17/18 22:26 Dose: 10 ml Piperacillin Sod/Tazobactam (Sod 3.375 gm/ Dextrose) 50 mls @ 100 mls/hr IVPB Q8H-IV [facility]; Protocol Last Admin: 08/18/18 09:58 Dose: 100 mls/hr Sodium Chloride (Normal Saline -) 1,000 mls @ 75 mls/hr IV ASDIR [facility] Last Admin: 08/17/18 17:04 Dose: Not Given Levetiracetam (Keppra Oral Solution -) 500 mg GT BID [facility] Last Admin: 08/17/18 22:06 Dose: 500 mg Loperamide HCl (Imodium -) 2 mg PEG DAILY [facility] Last Admin: 08/18/18 09:58 Dose: 2 mg Nitroglycerin (Nitrostat -) 0.4 mg SL Q5M PRN PRN Reason: FOR CHEST PAIN Ruxolitinib Phosphate [Jakafi] 5 Mg 5 mg GT BID [facility] Last Admin: 08/18/18 09:58 Dose: 5 mg Potassium Chloride (Potassium Chloride Oral Liquid) 40 meq GT DAILY [facility] Last Admin: 08/17/18 11:00 Dose: 40 meq Ranitidine HCl (Zantac Oral Solution -) 150 mg PEG BID [facility] Last Admin: 08/18/18 09:59 Dose: 150 mg Warfarin Sodium (Coumadin -) 2.5 mg PO DAILY@1800 [facility] Last Admin: 08/17/18 18:58 Dose: 2.5 mg - Objective Vital Signs: Vital Signs Temperature 98.1 F 08/18/18 09:38 Pulse Rate 91 H 08/18/18 09:38 Respiratory Rate 20 08/18/18 09:38 Blood Pressure 138/79 08/18/18 09:38 O2 Sat by Pulse Oximetry (%) 98 08/18/18 09:25 Constitutional: Yes: Calm Cardiovascular: Yes: Regular Rate and Rhythm, S1, S2 Respiratory: Yes: Diminished, Other (on bipap) Gastrointestinal: Yes: Normal Bowel Sounds, Soft Neurological: Yes: Alert Labs: CBC, BMP 08/16/18 05:30 08/16/18 05:30 INR, PTT INR 2.45 (0.83-1.09) H 08/16/18 05:30 Problem List - Problems (1) Acute hypoxemic respiratory failure Assessment/Plan: bibasilar pna zosyn/vanco biap iv lasix one dose Code(s): J96.01 - ACUTE RESPIRATORY FAILURE WITH HYPOXIA (2) Influenza A Assessment/Plan: tamiflu droplet precautions Code(s): J10.1 - FLU DUE TO OTH IDENT INFLUENZA VIRUS W OTH RESP MANIFEST (3) Hypokalemia Assessment/Plan: resolved Code(s): E87.6 - HYPOKALEMIA (4) Anticoagulant long-term use Assessment/Plan: hx of cva inr is therapeutic Code(s): Z79.01 - ASSISTED (CURRENT) USE OF ANTICOAGULANTS (5) Hodgkin lymphoma Assessment/Plan: heme on board on jakafi and dexa Code(s): C81.90 - HODGKIN LYMPHOMA, UNSPECIFIED, UNSPECIFIED SITE
--- NOTE | 2018-08-18 12:13 | PN ---
Physical Exam: SUBJECTIVE: Patient seen and examined; put on BiPAP overnight due to acute hypoxic respiratory failure; also went into A fib as per EMR; OBJECTIVE: Vital Signs Period Temp Pulse Resp BP Sys/Nichols Pulse Ox Last 24 Hr 97.0 F-98.8 F 85-142 16-22 127-185/78-91 92-100 GENERAL: The patient is awake, alert, and fully oriented, on BiPAP HEAD: Normal with no signs of trauma. LUNGS: decreased breath sounds anteriorly; did not auscultate posterior HEART: Regular rate and rhythm, S1, S2 without murmur, rub or gallop. ABDOMEN: Soft, nontender, nondistended, normoactive bowel sounds, no guarding, no rebound, no hepatosplenomegaly, no masses. EXTREMITIES: 2+ pulses, warm, well-perfused, no edema. Laboratory Results - last 24 hr 08/17/18 08/17/18 08/18/18 22:46 22:49 08:39 Puncture Site Right radial Right radial ABG pH 7.35 7.36 ABG pCO2 at Pt Temp 48.5 H D 49.5 H ABG pO2 at Pt Temp 64.6 L D 195.0 H* ABG HCO3 25.9 27.3 H ABG O2 Sat (Measured) 91.7 99.1 H ABG O2 Content 13.1 L 13.5 L ABG Base Excess 0.4 2.0 Regis Test Positive Positive O2 Delivery Device Non rebreather Oxygen Flow Rate Yes 100% Creatine Kinase 27 Troponin I < 0.02 Active Medications Generic Name Dose Route Start Last Admin Trade Name Freq PRN Reason Stop Dose Admin Acetaminophen 650 mg 08/14/18 01:26 08/18/18 10:44 Tylenol - PO 650 mg Q4H PRN Administration PAIN OR FEVER Albuterol Sulfate 1 amp 08/14/18 01:26 08/17/18 19:58 Ventolin 0.083% Nebulizer Soln - NEB 1 amp Q6H PRN Administration SHORT OF BREATH/WHEEZING Dexamethasone 4 mg 08/14/18 10:00 08/18/18 09:58 Decadron - PEG 4 mg DAILY [facility] Administration Gabapentin 250 mg 08/14/18 06:00 08/18/18 05:59 Neurontin Oral Liquid - PEG 250 mg TID [facility] Administration Guaifenesin 10 ml 08/14/18 01:26 08/17/18 22:26 Robitussin - PO 10 ml Q4H PRN Administration COUGH Piperacillin Sod/Tazobactam 50 mls @ 100 mls/hr 08/13/18 13:00 08/18/18 09:58 Sod 3.375 gm/ Dextrose IVPB 100 mls/hr Q8H-IV [facility] Administration Protocol Levetiracetam 500 mg 08/14/18 10:00 08/17/18 22:06 Keppra Oral Solution - GT 500 mg BID [facility] Administration Loperamide HCl 2 mg 08/14/18 10:00 08/18/18 09:58 Imodium - PEG 2 mg DAILY [facility] Administration Nitroglycerin 0.4 mg 08/17/18 21:59 Nitrostat - SL Q5M PRN FOR CHEST PAIN Ruxolitinib 5 mg 08/14/18 10:00 08/18/18 09:58 Phosphate [Jakafi] 5 GT 5 mg Mg BID [facility] Administration Potassium Chloride 40 meq 08/14/18 10:00 08/17/18 11:00 Potassium Chloride Oral Liquid GT 40 meq DAILY [facility] Administration Ranitidine HCl 150 mg 08/14/18 10:00 08/18/18 09:59 Zantac Oral Solution - PEG 150 mg BID [facility] Administration Warfarin Sodium 2.5 mg 08/13/18 20:00 08/17/18 18:58 Coumadin - PO 2.5 mg DAILY@1800 [facility] Administration ASSESSMENT/PLAN: This is a 37 yo F, SNF resident, with hx CVA, on warfarin, Hodgkin lymphopma 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 On broad spectrum Abx and Tamiflu. Acute hypoxic respiratory failure 2/2 PNA NHL GVHD Influnenza + -on BIPAP; INR is therapeutic on coumadin -cont IV antibiotic /tamiflu -continue both Jakafi and dexamethasone (to prevent adrenal insufficiency as this is a oysterman med). -drop in hemoglobin noted; monitor CBC; vitals stable; no signs of bleed; FOBT Visit type - Emergency Visit Emergency Visit: Yes ED Registration Date: 08/12/18 Care time: The patient presented to the Emergency Department on the above date and was hospitalized for further evaluation of their emergent condition. - New Patient This patient is new to me today: No - Critical Care Critical Care patient: No
--- NOTE | 2018-08-18 12:56 | PN ---
Progress Note (short form) - Note Progress Note: PULMONARY Placed on BiPAP overnight with improvement. Denies cough or wheezing. No fevers or chills. Vital Signs Period Temp Pulse Resp BP Sys/Nichols Pulse Ox Last 24 Hr 97.0 F-98.8 F 85-142 16-22 127-185/78-91 92-100 Gen: NAD on BiPAP Heart: RRR Lung: decreased breath sounds at the bases Abd: soft, nontender Ext: no edema CBC, BMP 08/16/18 05:30 08/16/18 05:30 Active Medications Acetaminophen (Tylenol -) 650 mg PO Q4H PRN PRN Reason: PAIN OR FEVER Last Admin: 08/18/18 10:44 Dose: 650 mg Albuterol Sulfate (Ventolin 0.083% Nebulizer Soln -) 1 amp NEB Q6H PRN PRN Reason: SHORT OF BREATH/WHEEZING Last Admin: 08/17/18 19:58 Dose: 1 amp Dexamethasone (Decadron -) 4 mg PEG DAILY [facility] Last Admin: 08/18/18 09:58 Dose: 4 mg Gabapentin (Neurontin Oral Liquid -) 250 mg PEG TID [facility] Last Admin: 08/18/18 05:59 Dose: 250 mg Guaifenesin (Robitussin -) 10 ml PO Q4H PRN PRN Reason: COUGH Last Admin: 08/17/18 22:26 Dose: 10 ml Piperacillin Sod/Tazobactam (Sod 3.375 gm/ Dextrose) 50 mls @ 100 mls/hr IVPB Q8H-IV [facility]; Protocol Last Admin: 08/18/18 09:58 Dose: 100 mls/hr Levetiracetam (Keppra Oral Solution -) 500 mg GT BID [facility] Last Admin: 08/17/18 22:06 Dose: 500 mg Loperamide HCl (Imodium -) 2 mg PEG DAILY [facility] Last Admin: 08/18/18 09:58 Dose: 2 mg Nitroglycerin (Nitrostat -) 0.4 mg SL Q5M PRN PRN Reason: FOR CHEST PAIN Ruxolitinib Phosphate [Jakafi] 5 Mg 5 mg GT BID [facility] Last Admin: 08/18/18 09:58 Dose: 5 mg Potassium Chloride (Potassium Chloride Oral Liquid) 40 meq GT DAILY [facility] Last Admin: 08/17/18 11:00 Dose: 40 meq Ranitidine HCl (Zantac Oral Solution -) 150 mg PEG BID [facility] Last Admin: 08/18/18 09:59 Dose: 150 mg Warfarin Sodium (Coumadin -) 2.5 mg PO DAILY@1800 [facility] Last Admin: 08/17/18 18:58 Dose: 2.5 mg A/P Acute Hypoxic Respiratory Failure Pneumonia Influenza A Hodgkins Lymphoma - continue antibiotics - O2 to keep SpO2 >90% - BiPAP to assist in work of breathing - aspiration precautions - inhaled bronchodilators - on anticoagulation
--- NOTE | 2018-08-18 16:10 | ECHO ---
Name: MORE LOCKHART Exam:Adult Echocardiogram Study Date: 08/18/2018 12:39 PM Age: 37 yrs Reason For Study: evaluate for CHF Height: 65 in Weight: 145 lb BSA: 1.7 m2 Procedure A complete two-dimensional transthoracic echocardiogram was performed (2D, M-mode, Doppler and color flow Doppler). The study was technically difficult with many images being suboptimal in quality. Left Ventricle The left ventricle is normal in size. Left ventricular systolic function is mildly reduced. Ejection Fraction = 45-50%. There is mild global hypokinesis of the left ventricle. Right Ventricle The right ventricle is normal in size and function. Atria Normal left and right atrial size and function. Mitral Valve There is no mitral regurgitation noted. Tricuspid Valve There is trace tricuspid regurgitation. There was insufficient TR detected to calculate RV systolic p ressure. Aortic Valve No hemodynamically significant valvular aortic stenosis. No aortic regurgitation is present. Pulmonic Valve There is no pulmonic valvular regurgitation. Great Vessels The aortic root is normal size. Pericardium/Pleura There is no pericardial effusion. Interpretation Summary The study was technically difficult with many images being suboptimal in quality. Left ventricular systolic function is mildly reduced. There is mild global hypokinesis of the left ventricle. The right ventricle is normal in size and function. There is trace tricuspid regurgitation. MD Alfonso Shipman 08/18/2018 04:10 PM
--- NOTE | 2018-08-18 16:54 | EKG ---
Test Reason : Blood Pressure : / mmHG Vent. Rate : 155 BPM Atrial Rate : 174 BPM P-R Int : 000 ms QRS Dur : 066 ms QT Int : 312 ms P-R-T Axes : 000 023 -10 degrees QTc Int : 501 ms POOR DATA QUALITY, INTERPRETATION MAY BE ADVERSELY AFFECTED ATRIAL FIBRILLATION WITH RAPID VENTRICULAR RESPONSE ANTERIOR INFARCT , AGE UNDETERMINED ABNORMAL ECG WHEN COMPARED WITH ECG OF 13-AUG-2018 13:38, ATRIAL FIBRILLATION HAS REPLACED SINUS RHYTHM NON-SPECIFIC CHANGE IN ST SEGMENT IN LATERAL LEADS NONSPECIFIC T WAVE ABNORMALITY, WORSE IN INFERIOR LEADS T WAVE INVERSION NOW EVIDENT IN LATERAL LEADS Confirmed by JHONATHAN ROSALES MD ([id number]) on 08/18/2018 4:54:11 PM Referred By: Confirmed By:JHONATHAN ROSALES MD
[2018-08-18] MEDS: WARFARIN NA 2.5 MG TABLET (FP) PO SCH (17:43)
[2018-08-18] MEDS: ALBUTEROL SO4 0.083% IH SOL 2.5 MG/3 ML VIAL.NEB. NEB PRN (21:20)
[2018-08-18] MEDS: guaiFENesin 200 MG/10 ML 10 ML UNIT-DOSE CUPS PO PRN (23:25)
[2018-08-19] MEDS ORDERED: PIPERACILLIN/TAZOBACTAM 3.375 GM VIAL IVPB ONE ×2 (01:04→09:06)
[2018-08-19] MEDS ORDERED: DEXTROSE 5%-WATER - 50 ML IVPB ONE ×2 (01:04→09:06)
[2018-08-19] MEDS: PIPERACILLIN/TAZOB 3.375 GM 3.375 GM in DEXTROSE 5%-WATER - 50 ML IVPB SCH ×2 (01:06→10:02)
[2018-08-19] MEDS: GABAPENTIN 250 MG/5 ML ORAL SOLUTION, 470 ML BOTTLE PEG SCH ×3 (06:04→21:55)
[2018-08-19] MEDS: ACETAMINOPHEN 325 MG TABLET (FP) PO PRN ×4 (06:27→21:55)
[2018-08-19] MEDS: POTASSIUM CHLORIDE ORAL LIQUID 20 MEQ/15 ML GT SCH (10:02)
[2018-08-19] MEDS: guaiFENesin 200 MG/10 ML 10 ML UNIT-DOSE CUPS PO PRN ×2 (10:03→17:36)
[2018-08-19] MEDS: DEXAMETHASONE 4 MG TABLET (FP) PEG SCH (10:03)
[2018-08-19] MEDS: LOPERAMIDE HCL 2 MG CAPSULE PEG SCH (10:03)
[2018-08-19] MEDS: levETIRAcetam 500 MG/5 ML ORAL SOLUTION (UNIT-DOSE CUPS) GT SCH ×2 (10:04→21:51)
[2018-08-19] MEDS: RUXOLITINIB PHOSPHATE 5 MG GT SCH ×2 (10:06→21:52)
[2018-08-19] MEDS: RANITIDINE HCL 150 MG/10 ML UNIT-DOSE PEG SCH ×2 (10:37→21:54)
--- NOTE | 2018-08-19 12:13 | PN ---
Progress Note, Physician History of Present Illness: pulmonary lethargic on bipap, -resp distress,o2 sat 100% - Current Medication List Current Medications: Active Medications Acetaminophen (Tylenol -) 650 mg PO Q4H PRN PRN Reason: PAIN OR FEVER Last Admin: 08/19/18 10:03 Dose: 650 mg Albuterol Sulfate (Ventolin 0.083% Nebulizer Soln -) 1 amp NEB Q6H PRN PRN Reason: SHORT OF BREATH/WHEEZING Last Admin: 08/18/18 21:20 Dose: 1 amp Dexamethasone (Decadron -) 4 mg PEG DAILY [facility] Last Admin: 08/19/18 10:03 Dose: 4 mg Gabapentin (Neurontin Oral Liquid -) 250 mg PEG TID [facility] Last Admin: 08/19/18 06:04 Dose: 250 ml Guaifenesin (Robitussin -) 10 ml PO Q4H PRN PRN Reason: COUGH Last Admin: 08/19/18 10:03 Dose: 10 ml Piperacillin Sod/Tazobactam (Sod 3.375 gm/ Dextrose) 50 mls @ 100 mls/hr IVPB Q8H-IV [facility]; Protocol Last Admin: 08/19/18 10:02 Dose: 100 mls/hr Levetiracetam (Keppra Oral Solution -) 500 mg GT BID [facility] Last Admin: 08/19/18 10:04 Dose: 500 mg Loperamide HCl (Imodium -) 2 mg PEG DAILY [facility] Last Admin: 08/19/18 10:03 Dose: 2 mg Nitroglycerin (Nitrostat -) 0.4 mg SL Q5M PRN PRN Reason: FOR CHEST PAIN Ruxolitinib Phosphate [Jakafi] 5 Mg 5 mg GT BID [facility] Last Admin: 08/19/18 10:06 Dose: 5 mg Potassium Chloride (Potassium Chloride Oral Liquid) 40 meq GT DAILY [facility] Last Admin: 08/19/18 10:02 Dose: 40 meq Ranitidine HCl (Zantac Oral Solution -) 150 mg PEG BID [facility] Last Admin: 08/18/18 21:37 Dose: 150 mg Warfarin Sodium (Coumadin -) 2.5 mg PO DAILY@1800 [facility] Last Admin: 08/18/18 17:43 Dose: 2.5 mg - Objective Vital Signs: Vital Signs Temperature 97.6 F 08/19/18 06:18 Pulse Rate 95 H 08/19/18 06:18 Respiratory Rate 22 H 08/19/18 06:18 Blood Pressure 150/73 08/19/18 06:18 O2 Sat by Pulse Oximetry (%) 98 08/19/18 09:38 Constitutional: Yes: Well Nourished, Other (lethargic) Eyes: Yes: WNL HENT: Yes: WNL Neck: Yes: WNL Cardiovascular: Yes: Regular Rate and Rhythm, S1, S2 Respiratory: Yes: Rhonchi (scattered rhonchi) Gastrointestinal: Yes: Normal Bowel Sounds, Soft Extremities: Yes: WNL Edema: Yes Labs: INR, PTT Problem List - Problems (1) Acute hypoxemic respiratory failure Code(s): J96.01 - ACUTE RESPIRATORY FAILURE WITH HYPOXIA Assessment/Plan Problem List - Problems (1) Hodgkin lymphoma Code(s): C81.90 - HODGKIN LYMPHOMA, UNSPECIFIED, UNSPECIFIED SITE (2) Hypoxia Code(s): R09.02 - HYPOXEMIA (3) Influenza A Code(s): J10.1 - FLU DUE TO OTH IDENT INFLUENZA VIRUS W OTH RESP MANIFEST (4) SIRS (systemic inflammatory response syndrome) Code(s): R65.10 - SIRS OF NON-INFECTIOUS ORIGIN W/O ACUTE ORGAN DYSFUNCTION (5) Tachycardia Code(s): R00.0 - TACHYCARDIA, UNSPECIFIED Assessment/Plan IMP ACUTE HYPOXEMIC RESPIRATORY FAILURE PNEUMONIA SIRS H/O HODGKIN LYMPHOMA S/P BMT,ON CHEMO PLAN ANTIBIOTICS IV FLUID NEEDED NIPPV NEEDED SUPPLEMENTAL O2 STEROIDS ANTICOAGULATION MONITOR CXR MONITOR NENA WILSON
--- NOTE | 2018-08-19 13:43 | PN ---
Progress Note, Physician - Current Medication List Current Medications: Active Medications Acetaminophen (Tylenol -) 650 mg PO Q4H PRN PRN Reason: PAIN OR FEVER Last Admin: 08/19/18 10:03 Dose: 650 mg Albuterol Sulfate (Ventolin 0.083% Nebulizer Soln -) 1 amp NEB Q6H PRN PRN Reason: SHORT OF BREATH/WHEEZING Last Admin: 08/18/18 21:20 Dose: 1 amp Dexamethasone (Decadron -) 4 mg PEG DAILY [facility] Last Admin: 08/19/18 10:03 Dose: 4 mg Gabapentin (Neurontin Oral Liquid -) 250 mg PEG TID [facility] Last Admin: 08/19/18 06:04 Dose: 250 ml Guaifenesin (Robitussin -) 10 ml PO Q4H PRN PRN Reason: COUGH Last Admin: 08/19/18 10:03 Dose: 10 ml Piperacillin Sod/Tazobactam (Sod 3.375 gm/ Dextrose) 50 mls @ 100 mls/hr IVPB Q8H-IV [facility]; Protocol Last Admin: 08/19/18 10:02 Dose: 100 mls/hr Levetiracetam (Keppra Oral Solution -) 500 mg GT BID [facility] Last Admin: 08/19/18 10:04 Dose: 500 mg Loperamide HCl (Imodium -) 2 mg PEG DAILY [facility] Last Admin: 08/19/18 10:03 Dose: 2 mg Nitroglycerin (Nitrostat -) 0.4 mg SL Q5M PRN PRN Reason: FOR CHEST PAIN Ruxolitinib Phosphate [Jakafi] 5 Mg 5 mg GT BID [facility] Last Admin: 08/19/18 10:06 Dose: 5 mg Potassium Chloride (Potassium Chloride Oral Liquid) 40 meq GT DAILY [facility] Last Admin: 08/19/18 10:02 Dose: 40 meq Ranitidine HCl (Zantac Oral Solution -) 150 mg PEG BID [facility] Last Admin: 08/18/18 21:37 Dose: 150 mg Warfarin Sodium (Coumadin -) 2.5 mg PO DAILY@1800 [facility] Last Admin: 08/18/18 17:43 Dose: 2.5 mg - Objective Vital Signs: Vital Signs Temperature 97.6 F 08/19/18 10:00 Pulse Rate 98 H 08/19/18 10:00 Respiratory Rate 22 H 08/19/18 10:00 Blood Pressure 138/70 08/19/18 10:00 O2 Sat by Pulse Oximetry (%) 98 08/19/18 09:38 Cardiovascular: Yes: S1, S2 Respiratory: Yes: On BiPap Gastrointestinal: Yes: Normal Bowel Sounds, Soft Labs: CBC, BMP 08/16/18 05:30 08/16/18 05:30 INR, PTT INR 2.45 (0.83-1.09) H 08/16/18 05:30 Assessment/Plan - Problems (1) Acute hypoxemic respiratory failure Assessment/Plan: bibasilar pna zosyn/vanco biap iv lasix one dose cxr Code(s): J96.01 - ACUTE RESPIRATORY FAILURE WITH HYPOXIA (2) Influenza A Assessment/Plan: tamiflu droplet precautions Code(s): J10.1 - FLU DUE TO OTH IDENT INFLUENZA VIRUS W OTH RESP MANIFEST (3) Hypokalemia Assessment/Plan: resolved Code(s): E87.6 - HYPOKALEMIA (4) Anticoagulant long-term use Assessment/Plan: 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
--- NOTE | 2018-08-19 16:20 | PN ---
Progress Note, Physician History of Present Illness: AWAKE AND ALERT BREATHING NON-LABORED ON BIPAP TEMPS DOWN AFEBRILE WBC WNL - Current Medication List Current Medications: Active Medications Acetaminophen (Tylenol -) 650 mg PO Q4H PRN PRN Reason: PAIN OR FEVER Last Admin: 08/19/18 10:03 Dose: 650 mg Albuterol Sulfate (Ventolin 0.083% Nebulizer Soln -) 1 amp NEB Q6H PRN PRN Reason: SHORT OF BREATH/WHEEZING Last Admin: 08/18/18 21:20 Dose: 1 amp Dexamethasone (Decadron -) 4 mg PEG DAILY [facility] Last Admin: 08/19/18 10:03 Dose: 4 mg Gabapentin (Neurontin Oral Liquid -) 250 mg PEG TID [facility] Last Admin: 08/19/18 13:56 Dose: 5 ml Guaifenesin (Robitussin -) 10 ml PO Q4H PRN PRN Reason: COUGH Last Admin: 08/19/18 10:03 Dose: 10 ml Piperacillin Sod/Tazobactam (Sod 3.375 gm/ Dextrose) 50 mls @ 100 mls/hr IVPB Q8H-IV [facility]; Protocol Last Admin: 08/19/18 10:02 Dose: 100 mls/hr Levetiracetam (Keppra Oral Solution -) 500 mg GT BID [facility] Last Admin: 08/19/18 10:04 Dose: 500 mg Loperamide HCl (Imodium -) 2 mg PEG DAILY [facility] Last Admin: 08/19/18 10:03 Dose: 2 mg Nitroglycerin (Nitrostat -) 0.4 mg SL Q5M PRN PRN Reason: FOR CHEST PAIN Ruxolitinib Phosphate [Jakafi] 5 Mg 5 mg GT BID [facility] Last Admin: 08/19/18 10:06 Dose: 5 mg Potassium Chloride (Potassium Chloride Oral Liquid) 40 meq GT DAILY [facility] Last Admin: 08/19/18 10:02 Dose: 40 meq Ranitidine HCl (Zantac Oral Solution -) 150 mg PEG BID [facility] Last Admin: 08/18/18 21:37 Dose: 150 mg Warfarin Sodium (Coumadin -) 2.5 mg PO DAILY@1800 [facility] Last Admin: 08/18/18 17:43 Dose: 2.5 mg - Objective Vital Signs: Vital Signs Temperature 97.6 F 08/19/18 10:00 Pulse Rate 98 H 08/19/18 10:00 Respiratory Rate 22 H 08/19/18 10:00 Blood Pressure 138/70 08/19/18 10:00 O2 Sat by Pulse Oximetry (%) 95 08/19/18 13:54 Constitutional: Yes: Cachectic Cardiovascular: Yes: Regular Rate and Rhythm, S1, S2 Respiratory: Yes: Diminished Gastrointestinal: Yes: Normal Bowel Sounds, Soft. No: Tenderness Labs: CBC, BMP 08/16/18 05:30 08/16/18 05:30 INR, PTT INR 2.45 (0.83-1.09) H 08/16/18 05:30 Assessment/Plan ACUTE INFLUENZA A BIBASILAR PNEUMONIA LEUKOPENIA- IMPROVED LYMPHOMA CONTINUE EMPIRIC ZOSYN COMPLETED TAMIFLU D/C ISOLATION PROGNOSIS GUARDED
[2018-08-19 17:33] LABS: EOS % 0.1 % (0-4.5); HEMATOCRIT 29.9 % (32.4-45.2); HEMOGLOBIN 9.6 GM/dL (10.7-15.3); LYMPH % 4.3 % (8-40); MCH 25.6 pg (25.7-33.7); MCHC 32.3 g/dl (32.0-36.0); MEAN CELL VOLUME 79.3 fl (80-96); MEAN PLT VOLUME 8.9 fl (7.5-11.1); MONO % 5.4 % (3.8-10.2); NEUT % 90.2 % (42.8-82.8); PLATELET COUNT 293 K/MM3 (134-434); RBC 3.77 M/mm3 (3.60-5.2); RDW 25.6 % (11.6-15.6); WHITE BLOOD COUNT 4.3 K/mm3 (4.0-10.0)
[2018-08-19] MEDS: WARFARIN NA 2.5 MG TABLET (FP) PO SCH (17:36)
[2018-08-19 17:41] LABS: PROTHROMBIN TIME (PATIENT) 54.7 SEC (9.7-13.0)
[2018-08-19 17:50] LABS: INR 4.57 (0.83-1.09)
[2018-08-19 17:59] LABS: BLOOD UREA NITROGEN 13 mg/dL (7-18); CHLORIDE 108 mmol/L (98-107); CO2 29 mmol/L (21-32); CREATININE 0.3 mg/dL (0.55-1.3); GLUCOSE,RANDOM 132 mg/dL (74-106); POTASSIUM 4.6 mmol/L (3.5-5.1); SODIUM 142 mmol/L (136-145)
[2018-08-19 18:00] LABS: ALBUMIN 2.9 g/dl (3.4-5.0); ALK PHOS 158 U/L (45-117); ANION GAP 5 MMOL/L (8-16); BILIRUBIN,TOTAL 0.3 mg/dL (0.2-1); SGOT/AST 20 U/L (15-37); SGPT/ALT 25 U/L (13-61); TOT PROT 6.2 g/dl (6.4-8.2)
[2018-08-19 18:04] LABS: ANISOCYTOSIS 3+; PLATELET ESTIMATE ADEQUATE
[2018-08-20] MEDS: ACETAMINOPHEN 325 MG TABLET (FP) PO PRN ×2 (06:02→16:21)
[2018-08-20] MEDS: GABAPENTIN 250 MG/5 ML ORAL SOLUTION, 470 ML BOTTLE PEG SCH ×2 (06:02→13:59)
[2018-08-20 09:01] LABS: PROTHROMBIN TIME (PATIENT) 49.9 SEC (9.7-13.0)
[2018-08-20 09:17] LABS: INR 4.17 (0.83-1.09)
[2018-08-20] MEDS: DEXAMETHASONE 4 MG TABLET (FP) PEG SCH (10:14)
[2018-08-20] MEDS: levETIRAcetam 500 MG/5 ML ORAL SOLUTION (UNIT-DOSE CUPS) GT SCH (10:14)
[2018-08-20] MEDS: RANITIDINE HCL 150 MG/10 ML UNIT-DOSE PEG SCH ×2 (10:14→21:49)
[2018-08-20] MEDS: LOPERAMIDE HCL 2 MG CAPSULE PEG SCH (10:14)
[2018-08-20] MEDS: POTASSIUM CHLORIDE ORAL LIQUID 20 MEQ/15 ML GT SCH (10:14)
[2018-08-20] MEDS: RUXOLITINIB PHOSPHATE 5 MG GT SCH (10:15)
--- NOTE | 2018-08-20 13:05 | PN ---
Progress Note, Physician Chief Complaint: AWAKE ALERT ON BIPAP DESATURATING 02 LEVELS WHEN TRYING TO EAT WITH MASK OFF EVENTS AND NOTES REVIEWED - Current Medication List Current Medications: Active Medications Acetaminophen (Tylenol -) 650 mg PO Q4H PRN PRN Reason: PAIN OR FEVER Last Admin: 08/20/18 06:02 Dose: 650 mg Albuterol Sulfate (Ventolin 0.083% Nebulizer Soln -) 1 amp NEB Q6H PRN PRN Reason: SHORT OF BREATH/WHEEZING Last Admin: 08/18/18 21:20 Dose: 1 amp Dexamethasone (Decadron -) 4 mg PEG DAILY [facility] Last Admin: 08/20/18 10:14 Dose: 4 mg Gabapentin (Neurontin Oral Liquid -) 250 mg PEG TID [facility] Last Admin: 08/20/18 06:02 Dose: 250 ml Guaifenesin (Robitussin -) 10 ml PO Q4H PRN PRN Reason: COUGH Last Admin: 08/19/18 17:36 Dose: 10 ml Amino Acids (Clinimix -) 1,000 mls @ 42 mls/hr IV Q12H [facility] Levetiracetam (Keppra Oral Solution -) 500 mg GT BID [facility] Last Admin: 08/20/18 10:14 Dose: 500 mg Loperamide HCl (Imodium -) 2 mg PEG DAILY [facility] Last Admin: 08/20/18 10:14 Dose: 2 mg Nitroglycerin (Nitrostat -) 0.4 mg SL Q5M PRN PRN Reason: FOR CHEST PAIN Ruxolitinib Phosphate [Jakafi] 5 Mg 5 mg GT BID [facility] Last Admin: 08/20/18 10:15 Dose: 5 mg Potassium Chloride (Potassium Chloride Oral Liquid) 40 meq GT DAILY [facility] Last Admin: 08/20/18 10:14 Dose: 40 meq Ranitidine HCl (Zantac Oral Solution -) 150 mg PEG BID [facility] Last Admin: 08/20/18 10:14 Dose: 150 mg Warfarin Sodium (Coumadin -) 2.5 mg PO DAILY@1800 [facility] Last Admin: 08/19/18 17:36 Dose: 2.5 mg - Objective Vital Signs: Vital Signs Temperature 98 F 08/20/18 01:20 Pulse Rate 82 08/20/18 01:20 Respiratory Rate 22 H 08/20/18 01:20 Blood Pressure 134/86 08/20/18 01:20 O2 Sat by Pulse Oximetry (%) 100 08/20/18 11:10 Constitutional: Yes: Mild Distress Eyes: Yes: WNL HENT: Yes: WNL Neck: Yes: WNL Cardiovascular: Yes: Regular Rate and Rhythm Respiratory: Yes: On BiPap Gastrointestinal: Yes: Other Genitourinary: Yes: Other Musculoskeletal: Yes: Muscle Weakness Extremities: Yes: Other Edema: No Integumentary: Yes: Pressure Ulcer, Venous Stasis Changes Wound/Incision: Yes: Dressing Dry and Intact Neurological: Yes: Pre-Existing Deficit, Weakness ...Motor Strength: LLE, RLE Psychiatric: Yes: Other Labs: CBC, BMP 08/19/18 16:20 08/19/18 16:20 INR, PTT INR 4.17 (0.83-1.09) H* 08/20/18 08:00 Problem List - Problems (1) Acute hypoxemic respiratory failure Code(s): J96.01 - ACUTE RESPIRATORY FAILURE WITH HYPOXIA (2) Anticoagulant long-term use 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 (3) Hodgkin lymphoma Code(s): C81.90 - HODGKIN LYMPHOMA, UNSPECIFIED, UNSPECIFIED SITE (4) Hypokalemia Code(s): E87.6 - HYPOKALEMIA (5) Hypoxia Code(s): R09.02 - HYPOXEMIA (6) Influenza A Code(s): J10.1 - FLU DUE TO OTH IDENT INFLUENZA VIRUS W OTH RESP MANIFEST (7) SIRS (systemic inflammatory response syndrome) Code(s): R65.10 - SIRS OF NON-INFECTIOUS ORIGIN W/O ACUTE ORGAN DYSFUNCTION (8) Tachycardia Code(s): R00.0 - TACHYCARDIA, UNSPECIFIED Assessment/Plan CLINMIX IV FOR NUTRITION INTIL RESPIRATORY STATUS IMPROVES TAMIFLU BID, PULMONARY F/U ID CONSULT AND F/U NEBS STEROIDS POOR OVERALL PROGNOSIS FULL CODE
--- NOTE | 2018-08-20 13:10 | PN ---
Progress Note (short form) - Note Progress Note: Patient seen and examined in the Telemetry unit. Awake and responsive on NIPPV. Requires NRBM when she is eating. Intake & Output 08/17/18 08/18/18 08/19/18 08/20/18 23:59 23:59 23:59 23:59 Intake Total 1220 2620 880 Balance 1220 2620 880 Last Vital Signs Temp Pulse Resp BP Pulse Ox 98 F 82 22 H 134/86 100 08/20/18 01:20 08/20/18 01:20 08/20/18 01:20 08/20/18 01:20 08/20/18 11:10 Active Medications Acetaminophen (Tylenol -) 650 mg PO Q4H PRN PRN Reason: PAIN OR FEVER Last Admin: 08/20/18 06:02 Dose: 650 mg Albuterol Sulfate (Ventolin 0.083% Nebulizer Soln -) 1 amp NEB Q6H PRN PRN Reason: SHORT OF BREATH/WHEEZING Last Admin: 08/18/18 21:20 Dose: 1 amp Dexamethasone (Decadron -) 4 mg PEG DAILY [facility] Last Admin: 08/20/18 10:14 Dose: 4 mg Gabapentin (Neurontin Oral Liquid -) 250 mg PEG TID [facility] Last Admin: 08/20/18 06:02 Dose: 250 ml Guaifenesin (Robitussin -) 10 ml PO Q4H PRN PRN Reason: COUGH Last Admin: 08/19/18 17:36 Dose: 10 ml Amino Acids (Clinimix -) 1,000 mls @ 83.333 mls/hr IV Q12H [facility] Levetiracetam (Keppra Oral Solution -) 500 mg GT BID [facility] Last Admin: 08/20/18 10:14 Dose: 500 mg Loperamide HCl (Imodium -) 2 mg PEG DAILY [facility] Last Admin: 08/20/18 10:14 Dose: 2 mg Nitroglycerin (Nitrostat -) 0.4 mg SL Q5M PRN PRN Reason: FOR CHEST PAIN Ruxolitinib Phosphate [Jakafi] 5 Mg 5 mg GT BID [facility] Last Admin: 08/20/18 10:15 Dose: 5 mg Potassium Chloride (Potassium Chloride Oral Liquid) 40 meq GT DAILY [facility] Last Admin: 08/20/18 10:14 Dose: 40 meq Ranitidine HCl (Zantac Oral Solution -) 150 mg PEG BID [facility] Last Admin: 08/20/18 10:14 Dose: 150 mg Warfarin Sodium (Coumadin -) 2.5 mg PO DAILY@1800 [facility] Last Admin: 08/19/18 17:36 Dose: 2.5 mg Gen: Awake and alert on NIPPV Heart: RRR Lung: scattered coarse BS, no wheeze Abd: soft, nontender Ext: no edema Laboratory Results - last 24 hr 08/19/18 08/19/18 08/19/18 16:20 16:20 16:20 WBC 4.3 RBC 3.77 Hgb 9.6 L Hct 29.9 L MCV 79.3 L MCH 25.6 L MCHC 32.3 RDW 25.6 H Plt Count 293 D MPV 8.9 Absolute Neuts (auto) 3.9 Neutrophils % 90.2 H Lymphocytes % 4.3 L D Monocytes % 5.4 Eosinophils % 0.1 Basophils % 0.0 Nucleated RBC % 1 H Hypochromia 1+ Platelet Estimate Adequate Platelet Comment Giant platelets Polychromasia 1+ Anisocytosis 3+ Microcytosis 2+ PT with INR 54.70 H INR 4.57 H* Sodium 142 Potassium 4.6 Chloride 108 H Carbon Dioxide 29 Anion Gap 5 L BUN 13 Creatinine 0.3 L Creat Clearance w eGFR > 60 Random Glucose 132 H Calcium 9.0 Total Bilirubin 0.3 AST 20 ALT 25 Alkaline Phosphatase 158 H Total Protein 6.2 L Albumin 2.9 L 08/20/18 08:00 WBC RBC Hgb Hct MCV MCH MCHC RDW Plt Count MPV Absolute Neuts (auto) Neutrophils % Lymphocytes % Monocytes % Eosinophils % Basophils % Nucleated RBC % Hypochromia Platelet Estimate Platelet Comment Polychromasia Anisocytosis Microcytosis PT with INR 49.90 H INR 4.17 H* Sodium Potassium Chloride Carbon Dioxide Anion Gap BUN Creatinine Creat Clearance w eGFR Random Glucose Calcium Total Bilirubin AST ALT Alkaline Phosphatase Total Protein Albumin A/P Acute Hypoxic Respiratory Failure Pneumonia Influenza A Hodgkins Lymphoma - Currently off ABX: will monitor off as she has received 7 days of Zosyn - O2 to keep SpO2 >90% - NIPPV to assist in work of breathing - Sspiration precautions - inhaled bronchodilators - on anticoagulation - Completed Tamiflu Dr Ramos
[2018-08-20] MEDS ORDERED: PT OWN MED DRAWER 7, Y5N ONE ×2 (15:13→21:24)
[2018-08-20] MEDS: AMINO ACIDS 4.25%/D5W 1,000 ML IV SCH (15:27)
[2018-08-20] MEDS: ALBUTEROL SO4 0.083% IH SOL 2.5 MG/3 ML VIAL.NEB. NEB PRN ×2 (16:15→21:08)
[2018-08-20] MEDS: WARFARIN NA 2.5 MG TABLET (FP) PO SCH (17:04)
--- NOTE | 2018-08-20 17:46 | HOSP ---
Subjective - Review of Symptoms Events since last encounter: Called to evaluate patient for shortness of breath. Patient says that she feels that she is becoming more SOB. She says she cannot take a deep breath and thinks she needs Lasix. She is currently using BiPAP with 85% O2. Oxygen saturation is 98%, RR is 43, and HR is 140s. Physical Examination Vital Signs: Vital Signs Temperature 97.9 F 08/20/18 15:36 Pulse Rate 144 H 08/20/18 15:36 Respiratory Rate 26 H 08/20/18 15:36 Blood Pressure 144/99 08/20/18 15:36 O2 Sat by Pulse Oximetry (%) 100 08/20/18 11:10 Constitutional: Yes: Anxious, Moderate Distress Cardiovascular: Yes: Tachycardia, Pulse Irregular Respiratory: Yes: Rhonchi (throughout left lung) Gastrointestinal: Yes: Normal Bowel Sounds, Soft. No: Distention, Tenderness Edema: No Labs: CBC, BMP 08/19/18 16:20 08/19/18 16:20 Hospitalist Encounter Assessment: This is a 37 year old woman with a history of Hodgkin lymphoma, admitted with acute hypoxic respiratory failure, pneumonia, and influenza A. She completed treatment with Tamiflu, Zosyn, and Vancomycin. She now has increasing SOB. Recommendations/Interventions: 1. Acute hypoxic respiratory failure, recent pneumonia and influenza A - Stat ABG, CXR - Doubt PE as patient has been on Coumadin and INR has been >2.0 since 08/14 - Maintain BiPAP until ABG available - Would transfer to ICU for closer respiratory monitoring as she might need intubation
[2018-08-20 18:10] LABS: ARTERIAL BLD GAS O2 SATURATION 90.5 % (90-98.9); ARTERIAL BLOOD GAS PCO2 40.9 mmHg (35-45); ARTERIAL BLOOD GAS PO2 57.6 mmHg (80-100); ARTERIAL BLOOD GAS pH 7.45 (7.35-7.45)
[2018-08-20 18:11] LABS: ALLENS TEST POSITIVE
--- NOTE | 2018-08-20 19:02 | PN ---
Physical Exam: SUBJECTIVE: 37 y/o F with a PMHx of hodgkins lymphoma (currently on chemo, and s /p BMT x2-2011, 2013), on immunosuppresive meds- Dexamethasone, Ruxolitinib Phosphate [Jakafi], AFib (previously on Warfarin, currently held), admitted to [facility] for Pneumonia and Influenza. Patient completed a course of Zosyn and Tamiflu. Patient was previously found to be in respiratory distress which improved on bipap. This evening patient was found to be tachycardic to the 150's , Tachypneic to the 50's with increased work of breathing. Patients FiO2 increased to 85% on Bilevel. During my interview, patient is able to speak in full sentences however feels anxious and requests lasix. Upon arrival in the ICU , after being given Lasix and Lopressor, Patient says her breathing has improved and she feels better. Patient denies fevers, chills, chest pain, SOB, nausea, vomiting, diarrhea, constipation. OBJECTIVE: Vital Signs Period Temp Pulse Resp BP Sys/Nichols Pulse Ox Last 24 Hr 97.8 F-98.2 F 78-144 21-26 122-144/58-107 99-100 GENERAL: A&Ox3, NAD HEAD: NCAT EYES: PERRL, EOMI ENT: Moist mucous membranes NECK: Supple, No JVD LUNGS: On Bipap, Rhonchi heard throughout the upper airway, Crackles heard on the Left lower lobe HEART: Tachycardic, S1, S2 without murmur BACK: Healing Stage 2 ulcer over the Buttock region, No Active drainage, no surrounding erythema ABDOMEN: Soft, nontender, nondistended, + bowel sounds, no guarding EXTREMITIES: No edema. NEUROLOGICAL: Cranial nerves II through XII grossly intact. Normal speech SKIN: Warm, dry Laboratory Results - last 24 hr 08/20/18 08/20/18 08:00 18:00 PT with INR 49.90 H INR 4.17 H* Anticoagulation Therapy No Result Required. Puncture Site Right radial ABG pH 7.45 ABG pCO2 at Pt Temp 40.9 ABG pO2 at Pt Temp 57.6 L D ABG HCO3 27.9 H ABG O2 Sat (Measured) 90.5 ABG O2 Content 14.7 L ABG Base Excess 4.0 H Regis Test Positive O2 Delivery Device Bipap Oxygen Flow Rate 85% Vent Mode S/t Vent Rate 15 Mechanical Rate No Result Required. PEEP 0.0 Pressure Support Vent Ipap 10/epap 5 Microbiology 08/12/18 17:40 Blood - Peripheral Venous Blood Culture - Final NO GROWTH AFTER 5 DAYS INCUBATION 08/12/18 17:40 Blood - Peripheral Venous Blood Culture - Final NO GROWTH AFTER 5 DAYS INCUBATION 08/12/18 22:00 Urine - Urine Clean Catch Urine Culture - Final 08/12/18 22:00 Urine For Antigen Detection Legionella Antigen - Final Active Medications Acetaminophen (Tylenol -) 650 mg PO Q4H PRN PRN Reason: PAIN OR FEVER Last Admin: 08/20/18 16:21 Dose: 650 mg Albuterol Sulfate (Ventolin 0.083% Nebulizer Soln -) 1 amp NEB Q6H PRN PRN Reason: SHORT OF BREATH/WHEEZING Last Admin: 08/20/18 16:15 Dose: 1 amp Dexamethasone (Decadron -) 4 mg PEG DAILY [facility] Last Admin: 08/20/18 10:14 Dose: 4 mg Gabapentin (Neurontin Oral Liquid -) 250 mg PEG TID [facility] Last Admin: 08/20/18 13:59 Dose: 5 ml Guaifenesin (Robitussin -) 10 ml PO Q4H PRN PRN Reason: COUGH Last Admin: 08/19/18 17:36 Dose: 10 ml Amino Acids (Clinimix -) 1,000 mls @ 83.333 mls/hr IV Q12H [facility] Last Admin: 08/20/18 15:27 Dose: 83.333 mls/hr Levetiracetam (Keppra Oral Solution -) 500 mg GT BID [facility] Last Admin: 08/20/18 10:14 Dose: 500 mg Loperamide HCl (Imodium -) 2 mg PEG DAILY [facility] Last Admin: 08/20/18 10:14 Dose: 2 mg Nitroglycerin (Nitrostat -) 0.4 mg SL Q5M PRN PRN Reason: FOR CHEST PAIN Last Admin: 08/20/18 13:56 Dose: 0.4 mg Ruxolitinib Phosphate [Jakafi] 5 Mg 5 mg GT BID [facility] Last Admin: 08/20/18 10:15 Dose: 5 mg Potassium Chloride (Potassium Chloride Oral Liquid) 40 meq GT DAILY [facility] Last Admin: 08/20/18 10:14 Dose: 40 meq Ranitidine HCl (Zantac Oral Solution -) 150 mg PEG BID [facility] Last Admin: 08/20/18 10:14 Dose: 150 mg Warfarin Sodium (Coumadin -) 2.5 mg PO DAILY@1800 [facility] Last Admin: 08/20/18 17:04 Dose: Not Given ASSESSMENT/PLAN: 37 y/o F with a PMHx of hodgkins lymphoma (currently on chemo, Dexamethasone, Ruxolitinib Phosphate), AFib (previously on Warfarin, currently held), who recently completed a course of Zosyn, Tamiflu for PNA/Influenza, will be monitored in ICU for Acute respiratory distress. #Neuro -A&Ox3, NAD -Continue Levetiracetam -Aspiration precautions -Monitor for changes in mental status #Cardio Tachycardia, Likely components of Anxiety, AFib w/ RVR on monitor Supratherapeutic INR Hx of AFib (previously on Warfarin, currently held) -Given 5mg IV Lopressor x 1 and IV Lasix 40mg x 1; Cardizem NOT given in the setting of mild LV global hypokinesis on recent Echo -EKG revealed Sinus Tachycardia, VR 130, QTc 426 -Currently not on Rate control; Dr. Velasco consulted for further evaluation -Continue Nitroglycerin PRN -Hold home dose Warfarin -Tele monitoring -Vital signs Q4H #Pulm Acute Respiratory Distress -Stat ABG reveals borderline Metabolic Alkalosis, pO2 decreased though on Bipap -CXR reveals Improvement, Possible Atelectasis, Blunting of Costophrenic angles -Possibly due to components of Tachycardia and fluid overload; Less likely PE given supratherapeutic INR -Continue Albuterol Nebulizer -Continue Bilevel; Will wean as tolerated -Supplemental O2 to maintain SpO2 > 90% #ID Sepesis due to Pneumonia, Influenza A Positive -Recently completed course of Zosyn, Tamiflu -Has remained Afebrile without Leukocytosis -Legionella Urine Antigen, Urine and blood cx negative -Will monitor off ABx for now -Dr. Goins Consulted, Appreciate rec's #Heme Microcytic Anemia Hx of hodgkins lymphoma (currently on chemo, and s/p BMT x2-2011, 2013 on Dexamethasone, Ruxolitinib Phosphate [Jakafi]) -Continue Dexamethasone, Gabapentin, Loperamide, Ruxolitinib -Dr. Morrow Consulted, appreciate Rec's -Palliative care consult given guarded prognosis #GI -Continue Ranitidine -Clinimix #Renal -Continue to monitor I&Os, Urine output #Endo Elevated BG in the setting of Dexamethasone use -Continue to monitor #FEN -No standing fluids -Replete Lytes PRN -Sodium Controlled Diet #PPx -DVT: SCDs; Hold Coumadin in the setting of supratherapeutic INR -GI: Ranitidine Code status: Full Code Dispo: Continue to monitor in ICU Visit type - Emergency Visit Emergency Visit: Yes ED Registration Date: 08/12/18 Care time: The patient presented to the Emergency Department on the above date and was hospitalized for further evaluation of their emergent condition. - New Patient This patient is new to me today: Yes Date on this admission: 08/20/18 - Critical Care Critical Care patient: Yes Total Critical Care Time (in minutes): 36 Critical Care Statement: The care of this patient involved high complexity decision making to prevent further life threatening deterioration of the patient 's condition and/or to evaluate & treat vital organ system(s) failure or risk of failure.
[2018-08-20] MEDS ORDERED: METOPROLOL TARTRATE 5 MG/5 ML VIAL IVPUSH ONE (19:15)
[2018-08-20] MEDS ORDERED: FUROSEMIDE 40 MG/4 ML INJECTABLE VIAL IVPUSH ONE (19:45)
[2018-08-20] MEDS ORDERED: METOPROLOL TARTRATE 25 MG TABLET (FP) GT ONE (21:12)
[2018-08-20] MEDS: CHLORHEXIDINE GLUCONATE 4% CLEANSER FOR DECOLONIZATION TP SCH (22:30)
[2018-08-20] MEDS: MUPIROCIN 2% TOPICAL OINTMENT FOR DECOLONIZATION NS SCH (22:30)
[2018-08-21] MEDS ORDERED: DOPAMINE 400 MG/D5W - 400,000 MCG/250 ML INFUS.BAG IVPB ONE (00:19)
[2018-08-21] MEDS: GABAPENTIN 250 MG/5 ML ORAL SOLUTION, 470 ML BOTTLE PEG SCH ×4 (01:36→21:00)
[2018-08-21] MEDS: levETIRAcetam 500 MG/5 ML ORAL SOLUTION (UNIT-DOSE CUPS) GT SCH ×3 (01:36→21:01)
[2018-08-21] MEDS: RUXOLITINIB PHOSPHATE 5 MG GT SCH ×3 (01:37→21:01)
[2018-08-21] MEDS: AMINO ACIDS 4.25%/D5W 1,000 ML IV SCH (04:00)
--- NOTE | 2018-08-21 08:28 | PN ---
Physical Exam: SUBJECTIVE: Patient seen and examined at bedside this morning. She endorses some chest tightness, however admits her breathing is improved since yesterday. Admits chills, denies subjective fevers. OBJECTIVE: Vital Signs Period Temp Pulse Resp BP Sys/Nichols Pulse Ox Last 24 Hr 97.4 F-98.2 F 84-144 21-35 114-144/58-107 92-100 GENERAL: The patient is awake, alert, and oriented, in no acute distress. HEAD: Normocephalic, atraumatic. EYES: PERRL, extraocular movements intact, sclera anicteric. ENT: Oropharynx clear without exudates, dry mucous membranes. NECK: Supple, without lymphadenopathy LUNGS: Poor inspiratory effort and air entry bilaterally. Clear to auscultation bilaterally, no wheezes, no crackles. No accessory muscle use. HEART: Regular rate and rhythm, S1, S2 without murmur, rub or gallop. ABDOMEN: Soft, nontender, nondistended, normoactive bowel sounds. EXTREMITIES: 1+ radial, dorsalis pedis pulses pulses bilaterally. No edema. NEUROLOGICAL: Cranial nerves II through XII grossly intact. Normal speech. SKIN: Warm, dry. Sclerodermic changes noted bilateral upper and lower extremities. Laboratory Results - last 24 hr 08/20/18 08/20/18 08:00 18:00 PT with INR 49.90 H INR 4.17 H* Anticoagulation Therapy No Result Required. Puncture Site Right radial ABG pH 7.45 ABG pCO2 at Pt Temp 40.9 ABG pO2 at Pt Temp 57.6 L D ABG HCO3 27.9 H ABG O2 Sat (Measured) 90.5 ABG O2 Content 14.7 L ABG Base Excess 4.0 H Regis Test Positive O2 Delivery Device Bipap Oxygen Flow Rate 85% Vent Mode S/t Vent Rate 15 Mechanical Rate No Result Required. PEEP 0.0 Pressure Support Vent Ipap 10/epap 5 Active Medications Generic Name Dose Route Start Last Admin Trade Name Freq PRN Reason Stop Dose Admin Acetaminophen 650 mg 08/14/18 01:26 08/20/18 16:21 Tylenol - PO 650 mg Q4H PRN Administration PAIN OR FEVER Albuterol Sulfate 1 amp 08/14/18 01:26 08/20/18 21:08 Ventolin 0.083% Nebulizer Soln - NEB 1 amp Q6H PRN Administration SHORT OF BREATH/WHEEZING Chlorhexidine Gluconate 1 applic 08/20/18 22:00 08/20/18 22:30 Hibiclens For Decolonization - TP 1 applic HS LANDEN Administration Dexamethasone 4 mg 08/14/18 10:00 08/20/18 10:14 Decadron - PEG 4 mg DAILY LANDEN Administration Gabapentin 250 mg 08/14/18 06:00 08/21/18 06:39 Neurontin Oral Liquid - PEG 5 ml TID LANDEN Administration Guaifenesin 10 ml 08/14/18 01:26 08/19/18 17:36 Robitussin - PO 10 ml Q4H PRN Administration COUGH Amino Acids 1,000 mls @ 83.333 mls/hr 08/20/18 13:15 08/21/18 04:00 Clinimix - IV 83.333 mls/hr Q12H LANDEN Administration Levetiracetam 500 mg 08/14/18 10:00 08/21/18 01:36 Keppra Oral Solution - GT 500 mg BID LANDEN Administration Loperamide HCl 2 mg 08/21/18 10:00 Imodium Liquid - PEG DAILY [facility] Mupirocin 1 applic 08/20/18 22:00 08/20/18 22:30 Bactroban Ointment (For Decolonization) - NS 08/25/18 21:59 1 applic BID LANDEN Administration Nitroglycerin 0.4 mg 08/17/18 21:59 08/20/18 13:56 Nitrostat - SL 0.4 mg Q5M PRN Administration FOR CHEST PAIN Ruxolitinib 5 mg 08/14/18 10:00 08/21/18 01:37 Phosphate [Jakafi] 5 GT Not Given Mg BID [facility] Potassium Chloride 40 meq 08/14/18 10:00 08/20/18 10:14 Potassium Chloride Oral Liquid GT 40 meq DAILY [facility] Administration Ranitidine HCl 150 mg 08/14/18 10:00 08/20/18 21:49 Zantac Oral Solution - PEG 150 mg BID LANDEN Administration Warfarin Sodium 2.5 mg 08/13/18 20:00 08/20/18 17:04 Coumadin - PO Not Given DAILY@1800 [facility] ASSESSMENT/PLAN: Patient is a 37 year old female with history of Hodgkins lymphoma, Afib ( previously on warfarin), recent Influenza infection treated with tamiflu, zosyn , admitted to ICU for hypoxic respiratory failure. Neurological -Patient is awake, alert, no acute distress -Keppra 500mg GT BID -Monitor for signs of mental change Cardiac Afib with RVR -Coumadin held as INR is supra-therapeutic. Follow PT/INR -Cardiac consult (Dr. Velasco) -Nitroglycerin PRN -Telemetry monitoring Pulmonary Acute hypoxic respiratory failure -Chest radiograph shows -Bilevel ventilatation -Maintain oxygen saturation greater than 90% Infectious disease Sepsis likely secondary to pneumonia -Influenza A positive -Urine negative for legionella, pneumonia antigen -ID consult appreciated Gastrointestinal -Patient receiving Clinimix -Ranitidine 150mg PEG BID Renal -Monitor intake, output Hematologic History of Hodgkins lymhpoma Microcytic anemia -Treatment per hematology oncology. -Hematology, oncology consult appreciated. -Palliative care consult FEN -No IV fluds indicated -Follow CMP, replete as necessary -Sodium controlled diet Prophylaxis -SCDs bilateral lower extremities. Holding Coumadin due to supratherapeutic INR -Ranitirine Disposition -Continue care in ICU Patient is full code. Visit type - Emergency Visit Emergency Visit: Yes ED Registration Date: 08/12/18 Care time: The patient presented to the Emergency Department on the above date and was hospitalized for further evaluation of their emergent condition. - New Patient This patient is new to me today: Yes Date on this admission: 08/21/18 - Critical Care Critical Care patient: Yes Total Critical Care Time (in minutes): 35 Critical Care Statement: The care of this patient involved high complexity decision making to prevent further life threatening deterioration of the patient 's condition and/or to evaluate & treat vital organ system(s) failure or risk of failure. - Discharge Referral Referred to [facility] Med [facility].: No
[2018-08-21] MEDS ORDERED: PT OWN MED DRAWER 7, Y5N ONE ×2 (09:12→12:28)
[2018-08-21] MEDS: ACETAMINOPHEN 325 MG TABLET (FP) PO PRN (09:14)
[2018-08-21] MEDS: DEXAMETHASONE 4 MG TABLET (FP) PEG SCH (09:14)
[2018-08-21] MEDS: POTASSIUM CHLORIDE ORAL LIQUID 20 MEQ/15 ML GT SCH (09:15)
[2018-08-21] MEDS: RANITIDINE HCL 150 MG/10 ML UNIT-DOSE PEG SCH ×2 (09:15→21:00)
--- NOTE | 2018-08-21 09:33 | PN ---
Progress Note, Physician Chief Complaint: AWAKE ALERT ON BIPAP STARTING FEEDINGS GT - Current Medication List Current Medications: Active Medications Acetaminophen (Tylenol -) 650 mg PO Q4H PRN PRN Reason: PAIN OR FEVER Last Admin: 08/21/18 09:14 Dose: 650 mg Albuterol Sulfate (Ventolin 0.083% Nebulizer Soln -) 1 amp NEB Q6H PRN PRN Reason: SHORT OF BREATH/WHEEZING Last Admin: 08/20/18 21:08 Dose: 1 amp Chlorhexidine Gluconate (Hibiclens For Decolonization -) 1 applic TP HS [facility] Last Admin: 08/20/18 22:30 Dose: 1 applic Dexamethasone (Decadron -) 4 mg PEG DAILY [facility] Last Admin: 08/21/18 09:14 Dose: 4 mg Gabapentin (Neurontin Oral Liquid -) 250 mg PEG TID [facility] Last Admin: 08/21/18 06:39 Dose: 5 ml Guaifenesin (Robitussin -) 10 ml PO Q4H PRN PRN Reason: COUGH Last Admin: 08/19/18 17:36 Dose: 10 ml Amino Acids (Clinimix -) 1,000 mls @ 83.333 mls/hr IV Q12H [facility] Last Admin: 08/21/18 04:00 Dose: 83.333 mls/hr Levetiracetam (Keppra Oral Solution -) 500 mg GT BID [facility] Last Admin: 08/21/18 09:14 Dose: 500 mg Loperamide HCl (Imodium Liquid -) 2 mg PEG DAILY [facility] Last Admin: 08/21/18 09:14 Dose: 2 mg Mupirocin (Bactroban Ointment (For Decolonization) -) 1 applic NS BID [facility] Stop: 08/25/18 21:59 Last Admin: 08/20/18 22:30 Dose: 1 applic Nitroglycerin (Nitrostat -) 0.4 mg SL Q5M PRN PRN Reason: FOR CHEST PAIN Last Admin: 08/20/18 13:56 Dose: 0.4 mg Ruxolitinib Phosphate [Jakafi] 5 Mg 5 mg GT BID [facility] Last Admin: 08/21/18 01:37 Dose: Not Given Potassium Chloride (Potassium Chloride Oral Liquid) 40 meq GT DAILY [facility] Last Admin: 08/21/18 09:15 Dose: 40 meq Ranitidine HCl (Zantac Oral Solution -) 150 mg PEG BID [facility] Last Admin: 08/21/18 09:15 Dose: 150 mg Warfarin Sodium (Coumadin -) 2.5 mg PO DAILY@1800 [facility] Last Admin: 08/20/18 17:04 Dose: Not Given - Objective Vital Signs: Vital Signs Temperature 97.8 F 08/21/18 06:00 Pulse Rate 84 08/21/18 08:00 Respiratory Rate 20 08/21/18 08:00 Blood Pressure 127/76 08/21/18 08:00 O2 Sat by Pulse Oximetry (%) 100 08/21/18 08:00 Constitutional: Yes: Mild Distress Cardiovascular: Yes: Regular Rate and Rhythm Respiratory: Yes: Diminished, On BiPap Gastrointestinal: Yes: Soft Genitourinary: Yes: Incontinence Musculoskeletal: Yes: Muscle Weakness Edema: No Neurological: Yes: Pre-Existing Deficit Labs: CBC, BMP 08/19/18 16:20 08/19/18 16:20 INR, PTT INR 4.17 (0.83-1.09) H* 08/20/18 08:00 Problem List - Problems (1) Acute hypoxemic respiratory failure Code(s): J96.01 - ACUTE RESPIRATORY FAILURE WITH HYPOXIA (2) Anticoagulant long-term use Code(s): Z79.01 - GAS WELDER (CURRENT) USE OF ANTICOAGULANTS (3) Hodgkin lymphoma Code(s): C81.90 - HODGKIN LYMPHOMA, UNSPECIFIED, UNSPECIFIED SITE (4) Hypokalemia Code(s): E87.6 - HYPOKALEMIA (5) Hypoxia Code(s): R09.02 - HYPOXEMIA (6) Influenza A Code(s): J10.1 - FLU DUE TO OTH IDENT INFLUENZA VIRUS W OTH RESP MANIFEST (7) SIRS (systemic inflammatory response syndrome) Code(s): R65.10 - SIRS OF NON-INFECTIOUS ORIGIN W/O ACUTE ORGAN DYSFUNCTION (8) Tachycardia Code(s): R00.0 - TACHYCARDIA, UNSPECIFIED Assessment/Plan RESPIRATORY SUPPORT STOP CLINIMIX START FEEDINGS JEVITY 1.5 ADVANCE TOLERATED FOR GOAL OF 1000 TRIAL OF PO DIET ONCE RESPIRATORY STATUS IMPROVES AC ONCOLOGY EVAL
--- NOTE | 2018-08-21 09:52 | PN ---
Teaching Attending Note Name of Resident: Sabas Moon ATTENDING PHYSICIAN STATEMENT I saw and evaluated the patient. I reviewed the resident's note and discussed the case with the resident. I agree with the resident's findings and plan as documented. SUBJECTIVE: Patient seen and examined in the ICU. Required transfer due to increased WOB and FiO2 requirements. Awake and alert on NIPPV. Reports feeling better but still SOB. Unable to optimize position due to neck pain. FiO2 @ 85%. CXR: diffusely increased pulmonary markings Intake & Output 08/18/18 08/19/18 08/20/18 08/21/18 23:59 23:59 23:59 23:59 Intake Total 2620 880 830 Balance 2620 880 830 Weight 135 lb 12.876 oz 133 lb 2.547 oz Last Vital Signs Temp Pulse Resp BP Pulse Ox 97.8 F 84 20 127/76 100 08/21/18 06:00 08/21/18 08:00 08/21/18 08:00 08/21/18 08:00 08/21/18 08:00 Active Medications Acetaminophen (Tylenol -) 650 mg PO Q4H PRN PRN Reason: PAIN OR FEVER Last Admin: 08/21/18 09:14 Dose: 650 mg Albuterol Sulfate (Ventolin 0.083% Nebulizer Soln -) 1 amp NEB Q6H PRN PRN Reason: SHORT OF BREATH/WHEEZING Last Admin: 08/20/18 21:08 Dose: 1 amp Chlorhexidine Gluconate (Hibiclens For Decolonization -) 1 applic TP HS [facility] Last Admin: 08/20/18 22:30 Dose: 1 applic Dexamethasone (Decadron -) 4 mg PEG DAILY [facility] Last Admin: 08/21/18 09:14 Dose: 4 mg Gabapentin (Neurontin Oral Liquid -) 250 mg PEG TID [facility] Last Admin: 08/21/18 06:39 Dose: 5 ml Guaifenesin (Robitussin -) 10 ml PO Q4H PRN PRN Reason: COUGH Last Admin: 08/19/18 17:36 Dose: 10 ml Amino Acids (Clinimix -) 1,000 mls @ 83.333 mls/hr IV Q12H [facility] Last Admin: 08/21/18 04:00 Dose: 83.333 mls/hr Levetiracetam (Keppra Oral Solution -) 500 mg GT BID [facility] Last Admin: 08/21/18 09:14 Dose: 500 mg Loperamide HCl (Imodium Liquid -) 2 mg PEG DAILY [facility] Last Admin: 08/21/18 09:14 Dose: 2 mg Mupirocin (Bactroban Ointment (For Decolonization) -) 1 applic NS BID [facility] Stop: 08/25/18 21:59 Last Admin: 08/20/18 22:30 Dose: 1 applic Nitroglycerin (Nitrostat -) 0.4 mg SL Q5M PRN PRN Reason: FOR CHEST PAIN Last Admin: 08/20/18 13:56 Dose: 0.4 mg Ruxolitinib Phosphate [Jakafi] 5 Mg 5 mg GT BID [facility] Last Admin: 08/21/18 09:47 Dose: 5 mg Potassium Chloride (Potassium Chloride Oral Liquid) 40 meq GT DAILY [facility] Last Admin: 08/21/18 09:15 Dose: 40 meq Ranitidine HCl (Zantac Oral Solution -) 150 mg PEG BID [facility] Last Admin: 08/21/18 09:15 Dose: 150 mg Warfarin Sodium (Coumadin -) 2.5 mg PO DAILY@1800 [facility] Last Admin: 08/20/18 17:04 Dose: Not Given Gen: Awake and alert on NIPPV, mildly tachypneic at rest Heart: RRR Lung: scattered coarse BS, no wheeze Abd: soft, nontender Ext: no edema Laboratory Results - last 24 hr 08/20/18 18:00 Anticoagulation Therapy No Result Required. Puncture Site Right radial ABG pH 7.45 ABG pCO2 at Pt Temp 40.9 ABG pO2 at Pt Temp 57.6 L D ABG HCO3 27.9 H ABG O2 Sat (Measured) 90.5 ABG O2 Content 14.7 L ABG Base Excess 4.0 H Regis Test Positive O2 Delivery Device Bipap Oxygen Flow Rate 85% Vent Mode S/t Vent Rate 15 Mechanical Rate No Result Required. PEEP 0.0 Pressure Support Vent Ipap 10/epap 5 A/P Acute Hypoxic Respiratory Failure Pneumonia Influenza A Hodgkins Lymphoma - Currently off ABX: will monitor off as she has received 7 days of Zosyn - O2 to keep SpO2 >90% - NIPPV adjusted to assist in work of breathing - Aspiration precautions - inhaled bronchodilators - on anticoagulation - Completed Tamiflu - ICU monitoring due to tenuous respiratory status and possible need for intubation Dr Ramos
[2018-08-21] MEDS ORDERED: LOPERAMIDE HCL 1 MG/5 ML UNIT DOSE CUP PEG SCH (10:00)
[2018-08-21 12:23] LABS: HEMATOCRIT 31.4 % (32.4-45.2); HEMOGLOBIN 10.1 GM/dL (10.7-15.3); MCH 25.5 pg (25.7-33.7); MCHC 32.3 g/dl (32.0-36.0); MEAN CELL VOLUME 79.1 fl (80-96); MEAN PLT VOLUME 8.7 fl (7.5-11.1); PLATELET COUNT 328 K/MM3 (134-434); RBC 3.97 M/mm3 (3.60-5.2); RDW 25.1 % (11.6-15.6); WHITE BLOOD COUNT 10.5 K/mm3 (4.0-10.0)
[2018-08-21] MEDS: LIDOCAINE 5% TOPICAL PATCH TP SCH (12:25)
[2018-08-21] MEDS: oxyCODONE HCL 5 MG TABLET PO PRN (12:25)
[2018-08-21 12:36] LABS: INR 3.53 (0.83-1.09); PROTHROMBIN TIME (PATIENT) 42.2 SEC (9.7-13.0)
[2018-08-21 12:38] LABS: ACTIVATED PTT 39.1 SECONDS (25.2-36.5)
[2018-08-21 13:03] LABS: ALBUMIN 2.9 g/dl (3.4-5.0); ALK PHOS 174 U/L (45-117); ANION GAP 8 MMOL/L (8-16); BILIRUBIN,TOTAL 0.4 mg/dL (0.2-1); BLOOD UREA NITROGEN 23 mg/dL (7-18); CALCIUM 8.9 mg/dL (8.5-10.1); CHLORIDE 99 mmol/L (98-107); CO2 33 mmol/L (21-32); CREATININE 0.3 mg/dL (0.55-1.3); GLUCOSE,RANDOM 159 mg/dL (74-106); MAGNESIUM 1.4 mg/dL (1.8-2.4); PHOSPHOROUS 1.6 mg/dL (2.5-4.9); SGOT/AST 23 U/L (15-37); SGPT/ALT 19 U/L (13-61); SODIUM 139 mmol/L (136-145); TOT PROT 6.4 g/dl (6.4-8.2)
[2018-08-21] MEDS: MUPIROCIN 2% TOPICAL OINTMENT FOR DECOLONIZATION NS SCH ×2 (14:04→21:01)
--- NOTE | 2018-08-21 14:23 | CON.CARD ---
Consult Consult Specialty:: Cardiology Referred by:: Dr. Bahena/ICU Reason for Consultation:: afib, tachycardia - History of Present Illness Chief Complaint: sob History of Present Illness: 37 year old woman with pmh Hodgkins lymphoma on chemo s/p BMT x 2 2011 and 2013 , CVA 04/2018 treated at [facility] and pt states she was found to have blood clots in her heart therefore she has been on Warfarin but she is not aware of a diagnosis of Afib, now admitted with PNA, Influenza, subsequently developed respiratory distress and hypoxia and was transferred to ICU. EKG showed afib with RVR on 08/17/18. Pt was seen and examined in the ICU, on bipap in nad. states she is feeling much better since being transferred to the ICU. denies any chest pain, palpitations. no pnd, orthopnea, or LE edema. 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 Cardio/Vascular: Yes: AFIB ...: No Heme/Onc: Yes: Cancer, Other - Alcohol/Substance Use Hx Alcohol Use: No - Smoking History Smoking history: Never smoked Have you smoked in the past 12 months: No - Social History Usual Living Arrangement: Alf ADL: Support Services History of Recent Travel: No Home Medications - Allergies Allergies/Adverse Reactions: Allergies Allergy/AdvReac Type Severity Reaction Status Date / Time bleomycin Allergy Verified 08/12/18 16:26 nut - unspecified Allergy Verified 08/12/18 16:27 peanut Allergy Verified 08/12/18 16:27 rivaroxaban Allergy Verified 08/12/18 16:27 - Home Medications Home Medications: Ambulatory Orders Cholecalciferol (Vitamin D3) [Vitamin D3] 5,000 unit PEG WEEKLY 08/12/18 Dexamethasone [Decadron] 5 ml PO DAILY 08/12/18 Dextran/Hypromellose/Glycerin [Genteal Tears 0.1%-0.2%-0.3%] 1 drop OU TID 08/12 Erythromycin Oral Suspension [Eryped Oral Suspension -] 6.3 ml PEG TID 08/12/18 Famotidine 20 mg PEG BID 08/12/18 Gabapentin Liquid [Neurontin Oral Liquid -] 250 mg PEG TID 08/12/18 Hydrophilic Ointment [Dermafix] 1 applic TP BID 08/12/18 Lidocaine 5% Top. Ointment [Xylocaine 5% Top. Ointment] 1 applic TP BID Loperamide HCl [Imodium A-D] 2 mg PEG DAILY 08/12/18 Potassium Chloride [Klor-Con] 20 meq GT DAILY 08/12/18 Ruxolitinib Phosphate [Jakafi] 5 mg GT BID 08/12/18 Warfarin Na [Coumadin] 2.5 mg PO ASDIR 08/12/18 Warfarin Sodium [Coumadin] 4 mg PO ASDIR 08/12/18 levETIRAcetam [levETIRAcetam ORAL SUSPENSION] 500 mg GT BID 08/12/18 Ondansetron HCl [Zofran] 4 mg PO TID PRN 08/13/18 Ruxolitinib Phosphate [Jakafi] 5 mg PO BID 08/13/18 Family Disease History - Family Disease History Family History: Denies Review of Systems - Review of Systems Constitutional: reports: Weakness Cardiovascular: reports: Shortness of Breath Respiratory: reports: SOB Musculoskeletal: reports: Muscle Weakness Neurological: reports: Pre-Existing Deficit, Weakness Vital Signs: Vital Signs Temperature 98.5 F 08/21/18 14:00 Pulse Rate 96 H 08/21/18 14:00 Respiratory Rate 22 H 08/21/18 14:00 Blood Pressure 100/74 08/21/18 14:00 O2 Sat by Pulse Oximetry (%) 99 08/21/18 11:30 Constitutional: Yes: No Distress, Calm Eyes: Yes: Conjunctiva Clear, EOM Intact HENT: Yes: Atraumatic, Normocephalic Neck: Yes: Supple, Trachea Midline Respiratory: Yes: Regular, Diminished, On BiPap, Rhonchi. No: Rales, SOB Gastrointestinal: Yes: Normal Bowel Sounds, Soft Cardiovascular: Yes: Regular Rate and Rhythm, Tachycardia. No: Bradycardia, Pulse Irregular, Gallop, Rub, Varicosities JVD: No Carotid Bruit: No PMI: Non-Displaced Heart Sounds: Yes: S1, S2. No: Split S2, S3, S4, Clicks, Gallop, Rub, Bruit Murmur: No: Systolic Murmur, Diastolic Murmur Musculoskeletal: Yes: Muscle Weakness Extremities: Yes: WNL Edema: No Peripheral Pulses WNL: Yes Neurological: Yes: Alert, Oriented Psychiatric: Yes: Alert, Oriented - Other Data Labs, Other Data: CBC, BMP 08/21/18 12:00 08/21/18 12:00 INR, PTT INR 3.53 (0.83-1.09) H 08/21/18 12:00 ekgs 1 ekg 08/17 shows afib with rvr 150bpm, other ekgs sinus tach Echo: Report Reviewed Ejection Fraction %: LVEF > or = 40 % Imaging - Results Chest X-ray: Report Reviewed, Image Reviewed EKG: Report Reviewed, Image Reviewed Other: Report Reviewed, Image Reviewed (tele-sinus rhythm, sinus tach) Assessment/Plan 37 year old woman with pmh Hodgkins lymphoma on chemo s/p BMT x 2 2011 and 2013 , CVA 04/2018 treated at [facility] and pt states she was found to have blood clots in her heart therefore she has been on Warfarin but she is not aware of a diagnosis of Afib, now admitted with PNA, Influenza, subsequently developed respiratory distress and hypoxia and was transferred to ICU. EKG showed afib with RVR on 08/17/18. Afib with RVR -ekgs 1 ekg 08/17 shows afib with rvr 150bpm, other ekgs sinus tach -tele shows sinus tach, possible brief episodes of afib, mostly sinus tach -pt reports having a CVA 04/2018 treated at [facility] at which time they told her she had blood clots in her heart and she was started on coumadin at that time -she is not aware of a diagnosis of afib but presume she has had Pafib previously based on above history -she was on coumadin at home and INR is currently supratherapeutic -plan to resume AC once INR comes back to therapeutic range either with coumadin if no further procedures are needed or with heparin gtt or Lovenox if procedures are needed during this admission SOB-treated for influenza and pneumonia -being given Lasix prn -echo showed mild diffuse LV systolic dysfunction -cont bipap as needed and Lasix prn
--- NOTE | 2018-08-21 17:18 | PN ---
Progress Note (short form) - Note Progress Note: Transferred to ICU for SOB low grade temp 100.4 this am resting comfortably on bipap has chronic diarrhea zosyn completed 08/19 day #7 finished tamiflu cor-rrr lungs decreased bs at bases abd soft,+gt ext no edema chronic skin changes GVHD +right chest wall catheter CBC, BMP 08/21/18 12:00 08/21/18 12:00 Microbiology 08/12/18 17:40 Blood - Peripheral Venous Blood Culture - Final NO GROWTH AFTER 5 DAYS INCUBATION 08/12/18 17:40 Blood - Peripheral Venous Blood Culture - Final NO GROWTH AFTER 5 DAYS INCUBATION 08/12/18 22:00 Urine - Urine Clean Catch Urine Culture - Final 08/12/18 22:00 Urine For Antigen Detection Legionella Antigen - Final cxray yesterday unchanged a/p low grade temp would reculture send stool cdiff repeat cxray if cxray is worse start vancomycin and cefepime d/w icu resident
[2018-08-21] MEDS ORDERED: INSULIN (NOVOLOG) ASPART 100 UNITS/ML 10ML VIAL ONE (20:01)
[2018-08-21] MEDS: LIDOCAINE PATCH REMOVAL MC SCH (21:01)
[2018-08-21] MEDS: CHLORHEXIDINE GLUCONATE 4% CLEANSER FOR DECOLONIZATION TP SCH (21:01)
[2018-08-21] MEDS ORDERED: guaiFENesin/D-METHORPHAN HB 10 ML UNIT-DOSE CUPS PO PRN (22:50)
[2018-08-21] MEDS: ALBUTEROL SO4 0.083% IH SOL 2.5 MG/3 ML VIAL.NEB. NEB PRN (23:49)
[2018-08-22] MEDS: oxyCODONE HCL 5 MG TABLET PO PRN ×3 (05:18→20:27)
[2018-08-22] MEDS: GABAPENTIN 250 MG/5 ML ORAL SOLUTION, 470 ML BOTTLE PEG SCH ×3 (05:18→21:17)
[2018-08-22 06:16] LABS: HEMATOCRIT 29.3 % (32.4-45.2); HEMOGLOBIN 9.4 GM/dL (10.7-15.3); MCH 25.1 pg (25.7-33.7); MEAN CELL VOLUME 78.5 fl (80-96); MEAN PLT VOLUME 8.7 fl (7.5-11.1); PLATELET COUNT 299 K/MM3 (134-434); RBC 3.73 M/mm3 (3.60-5.2); RDW 26.1 % (11.6-15.6); WHITE BLOOD COUNT 4.3 K/mm3 (4.0-10.0)
[2018-08-22 06:35] LABS: INR 3.37 (0.83-1.09); PROTHROMBIN TIME (PATIENT) 40.2 SEC (9.7-13.0)
[2018-08-22 06:58] LABS: ALBUMIN 2.9 g/dl (3.4-5.0); ALK PHOS 168 U/L (45-117); ANION GAP 7 MMOL/L (8-16); BILIRUBIN,TOTAL 0.4 mg/dL (0.2-1); BLOOD UREA NITROGEN 23 mg/dL (7-18); CALCIUM 8.8 mg/dL (8.5-10.1); CHLORIDE 97 mmol/L (98-107); CO2 33 mmol/L (21-32); CREATININE 0.2 mg/dL (0.55-1.3); GLUCOSE,RANDOM 123 mg/dL (74-106); MAGNESIUM 1.4 mg/dL (1.8-2.4); PHOSPHOROUS 2.3 mg/dL (2.5-4.9); POTASSIUM 3.7 mmol/L (3.5-5.1); SGOT/AST 19 U/L (15-37); SGPT/ALT 18 U/L (13-61); SODIUM 137 mmol/L (136-145); TOT PROT 6.3 g/dl (6.4-8.2)
[2018-08-22] MEDS ORDERED: MAGNESIUM SULF 50% (8.12 MEQ/2 ML-1 GM VIAL) IVPB ONE (08:24)
[2018-08-22] MEDS ORDERED: NAPH,MB-DB/K PH,MBDB POWDER PACKET GT ONE (08:25)
[2018-08-22] MEDS ORDERED: PT OWN MED DRAWER 7, Y5N ONE (09:08)
--- NOTE | 2018-08-22 09:24 | PN ---
Physical Exam: SUBJECTIVE: Patient seen and examined this AM. Says her chest tightness has improved. Tolerated bilevel overnight. Continues to have cough productive of little mucus. No repeat episodes of diarrhea. Endorses chills. Denies fevers, chest pain, nausea, vomiting, diarrhea, constipation. OBJECTIVE: Vital Signs Period Temp Pulse Resp BP Sys/Nichols Pulse Ox Last 24 Hr 97.7 F-100.4 F 78-102 19-30 95-140/71-91 96-100 GENERAL: A&Ox3, NAD HEAD: NCAT EYES: PERRL, EOMI ENT: Dry mucous membranes NECK: Supple, No JVD LUNGS: Tachypnea, On Bipap however poor inspiratory effort, Rhonchi heard throughout the upper airway HEART: RRR, S1, S2 without murmur CHEST: Port on the right upper chest BACK: Healing Stage 2 ulcer over the Buttock region, No Active drainage, no surrounding erythema ABDOMEN: Soft, nontender, nondistended, + bowel sounds, no guarding, PEG tube present in the Upper abdomen EXTREMITIES: No edema NEUROLOGICAL: Cranial nerves II through XII grossly intact. Normal speech SKIN: Warm, dry,Sclerodermic changes noted over extremities Laboratory Results - last 24 hr 08/21/18 08/21/18 08/21/18 12:00 12:00 12:00 WBC 10.5 H RBC 3.97 Hgb 10.1 L Hct 31.4 L MCV 79.1 L MCH 25.5 L MCHC 32.3 RDW 25.1 H Plt Count 328 MPV 8.7 PT with INR 42.20 H INR 3.53 H PTT (Actin FS) 39.1 H Sodium 139 Potassium 4.0 Chloride 99 Carbon Dioxide 33 H Anion Gap 8 BUN 23 H Creatinine 0.3 L Creat Clearance w eGFR > 60 Random Glucose 159 H Calcium 8.9 Phosphorus 1.6 L Magnesium 1.4 L Total Bilirubin 0.4 AST 23 ALT 19 Alkaline Phosphatase 174 H Total Protein 6.4 Albumin 2.9 L 08/22/18 08/22/18 08/22/18 05:30 05:30 05:30 WBC 4.3 RBC 3.73 Hgb 9.4 L Hct 29.3 L MCV 78.5 L MCH 25.1 L MCHC 32.0 RDW 26.1 H Plt Count 299 MPV 8.7 PT with INR 40.20 H INR 3.37 H PTT (Actin FS) Sodium 137 Potassium 3.7 Chloride 97 L Carbon Dioxide 33 H Anion Gap 7 L BUN 23 H Creatinine 0.2 L Creat Clearance w eGFR > 60 Random Glucose 123 H Calcium 8.8 Phosphorus 2.3 L Magnesium 1.4 L Total Bilirubin 0.4 AST 19 ALT 18 Alkaline Phosphatase 168 H Total Protein 6.3 L Albumin 2.9 L Microbiology 08/12/18 17:40 Blood - Peripheral Venous Blood Culture - Final NO GROWTH AFTER 5 DAYS INCUBATION 08/12/18 17:40 Blood - Peripheral Venous Blood Culture - Final NO GROWTH AFTER 5 DAYS INCUBATION 08/12/18 22:00 Urine - Urine Clean Catch Urine Culture - Final 08/12/18 22:00 Urine For Antigen Detection Legionella Antigen - Final Active Medications Acetaminophen (Tylenol -) 650 mg PO Q4H PRN PRN Reason: PAIN OR FEVER Last Admin: 08/21/18 09:14 Dose: 650 mg Albuterol Sulfate (Ventolin 0.083% Nebulizer Soln -) 1 amp NEB Q6H PRN PRN Reason: SHORT OF BREATH/WHEEZING Last Admin: 08/21/18 23:49 Dose: 1 amp Chlorhexidine Gluconate (Hibiclens For Decolonization -) 1 applic TP HS [facility] Last Admin: 08/21/18 21:01 Dose: 1 applic Dexamethasone (Decadron Liquid -) 0.5 mg PO DAILY [facility] Gabapentin (Neurontin Oral Liquid -) 250 mg PEG TID [facility] Last Admin: 08/22/18 05:18 Dose: 5 ml Guaifenesin (Robitussin Dm -) 10 ml PO Q6H PRN PRN Reason: COUGH Levetiracetam (Keppra Oral Solution -) 500 mg GT BID [facility] Last Admin: 08/21/18 21:01 Dose: 500 mg Lidocaine (Lidoderm Patch -) 1 patch TP DAILY [facility] Last Admin: 08/21/18 12:25 Dose: 1 patch Loperamide HCl (Imodium Liquid -) 2 mg PEG DAILY [facility] Last Admin: 08/21/18 09:14 Dose: 2 mg Miscellaneous (Lidoderm Patch Removal) 1 each MC DAILY@2200 [facility] Last Admin: 08/21/18 21:01 Dose: 1 each Mupirocin (Bactroban Ointment (For Decolonization) -) 1 applic NS BID [facility] Stop: 08/25/18 21:59 Last Admin: 08/21/18 21:01 Dose: 1 applic Nitroglycerin (Nitrostat -) 0.4 mg SL Q5M PRN PRN Reason: FOR CHEST PAIN Last Admin: 08/20/18 13:56 Dose: 0.4 mg Ruxolitinib Phosphate [Jakafi] 5 Mg 5 mg GT BID [facility] Last Admin: 08/21/18 21:01 Dose: 5 mg Oxycodone HCl (Roxicodone -) 5 mg PO Q6H PRN PRN Reason: PAIN LEVEL 6-10 Last Admin: 08/22/18 05:18 Dose: 5 mg Potassium Chloride (Potassium Chloride Oral Liquid) 40 meq GT DAILY [facility] Last Admin: 08/21/18 09:15 Dose: 40 meq Ranitidine HCl (Zantac Oral Solution -) 150 mg PEG BID [facility] Last Admin: 08/21/18 21:00 Dose: 150 mg Warfarin Sodium (Coumadin -) 2.5 mg PO DAILY@1800 [facility] Last Admin: 08/20/18 17:04 Dose: Not Given ASSESSMENT/PLAN: 37 y/o F with a PMHx of hodgkins lymphoma (currently on chemo, Dexamethasone, Ruxolitinib Phosphate), AFib (previously on Warfarin, currently held), who recently completed a course of Zosyn, Tamiflu for PNA/Influenza, will be monitored in ICU for Acute respiratory distress. #Neuro -A&Ox3, NAD -Continue Levetiracetam -Aspiration precautions -Monitor for changes in mental status #Cardio AFib w/ RVR (previously on Warfarin, currently held) Tachycardia, Improved Supratherapeutic INR -Dr. Velasco consulted, Appreciate Rec's -Continue Nitroglycerin PRN -Hold home dose Warfarin -Trend PT/INR -Tele monitoring -Vital signs Q4H -Will discuss bubble study given A-a gradient #Pulm Acute Respiratory Distress -Unclear etiology -CXR this reveals slight improvement in aeration. -Continue Albuterol Nebulizer -Continue Bilevel; Will wean as tolerated -Supplemental O2 to maintain SpO2 > 90% -Check GISELLE, ESR, CRP, Anca for possible rheumatologic cause -Start IV Solumedrol 40mg Q8h #ID Sepsis due to Pneumonia, Influenza A Positive -Recently completed course of Zosyn, Tamiflu -Legionella Urine Antigen, Urine and blood cx negative -WBC count improved, Afebrile now -Will monitor off ABx for now -Dr. Goins Consulted, Appreciate rec's #Heme Microcytic Anemia Hx of hodgkins lymphoma (currently on chemo, and s/p BMT x2-2011, 2013 on Dexamethasone, Ruxolitinib Phosphate [Jakafi]) -Continue Dexamethasone, Gabapentin, Ruxolitinib -Dr. Morrow Consulted, appreciate Rec's -Palliative care consult given guarded prognosis #GI Recent diarrhea, Concern for C. Diff -Continue Ranitidine -Clinimix -C. Diff Ag pending -Hold home dose Loperamide -Will Check Abdominal US to R/O cirrhosis #Renal -Continue to monitor I&Os, Urine output #Endo Elevated BG in the setting of Dexamethasone use -Continue to monitor #FEN -No standing fluids -Replete Lytes PRN -Tube feed jevity 1.5 #PPx -DVT: SCDs; Hold Coumadin in the setting of supratherapeutic INR -GI: Ranitidine Code status: Full Code Dispo: Continue to monitor in ICU Visit type - Emergency Visit Emergency Visit: Yes ED Registration Date: 08/12/18 Care time: The patient presented to the Emergency Department on the above date and was hospitalized for further evaluation of their emergent condition. - New Patient This patient is new to me today: No - Critical Care Critical Care patient: Yes Total Critical Care Time (in minutes): 36 Critical Care Statement: The care of this patient involved high complexity decision making to prevent further life threatening deterioration of the patient 's condition and/or to evaluate & treat vital organ system(s) failure or risk of failure.
[2018-08-22] MEDS: RANITIDINE HCL 150 MG/10 ML UNIT-DOSE PEG SCH ×2 (10:42→21:08)
[2018-08-22] MEDS: POTASSIUM CHLORIDE ORAL LIQUID 20 MEQ/15 ML GT SCH (10:42)
[2018-08-22] MEDS: levETIRAcetam 500 MG/5 ML ORAL SOLUTION (UNIT-DOSE CUPS) GT SCH ×2 (10:43→21:09)
[2018-08-22] MEDS: DEXAMETHASONE LIQUID 0.5 MG/5 ML 240 ML BULK BOTTLE PO SCH (10:43)
[2018-08-22] MEDS: LIDOCAINE 5% TOPICAL PATCH TP SCH (10:44)
[2018-08-22] MEDS: RUXOLITINIB PHOSPHATE 5 MG GT SCH ×2 (10:45→21:12)
[2018-08-22] MEDS: MUPIROCIN 2% TOPICAL OINTMENT FOR DECOLONIZATION NS SCH ×2 (10:46→21:10)
--- NOTE | 2018-08-22 10:47 | EKG ---
Test Reason : Blood Pressure : / mmHG Vent. Rate : 130 BPM Atrial Rate : 130 BPM P-R Int : 150 ms QRS Dur : 072 ms QT Int : 290 ms P-R-T Axes : 056 062 075 degrees QTc Int : 426 ms SINUS TACHYCARDIA BIATRIAL ENLARGEMENT NONSPECIFIC T WAVE ABNORMALITY ABNORMAL ECG WHEN COMPARED WITH ECG OF 17-AUG-2018 22:24, SINUS RHYTHM HAS REPLACED ATRIAL FIBRILLATION Confirmed by LUZ APPLE, PHUONG ([id number]) on 08/22/2018 10:47:41 AM Referred By: Confirmed By:PHUONG ESCOBAR MD
--- NOTE | 2018-08-22 11:23 | PN ---
Progress Note, Physician Chief Complaint: patient in ICU on bipap awake alert - Current Medication List Current Medications: Active Medications Acetaminophen (Tylenol -) 650 mg PO Q4H PRN PRN Reason: PAIN OR FEVER Last Admin: 08/21/18 09:14 Dose: 650 mg Albuterol Sulfate (Ventolin 0.083% Nebulizer Soln -) 1 amp NEB Q6H PRN PRN Reason: SHORT OF BREATH/WHEEZING Last Admin: 08/21/18 23:49 Dose: 1 amp Chlorhexidine Gluconate (Hibiclens For Decolonization -) 1 applic TP HS [facility] Last Admin: 08/21/18 21:01 Dose: 1 applic Dexamethasone (Decadron Liquid -) 0.5 mg PO DAILY [facility] Last Admin: 08/22/18 10:43 Dose: 0.5 mg Gabapentin (Neurontin Oral Liquid -) 250 mg PEG TID [facility] Last Admin: 08/22/18 05:18 Dose: 5 ml Guaifenesin (Robitussin Dm -) 10 ml PO Q6H PRN PRN Reason: COUGH Levetiracetam (Keppra Oral Solution -) 500 mg GT BID [facility] Last Admin: 08/22/18 10:43 Dose: 500 mg Lidocaine (Lidoderm Patch -) 1 patch TP DAILY [facility] Last Admin: 08/22/18 10:44 Dose: 1 patch Loperamide HCl (Imodium Liquid -) 2 mg PEG DAILY [facility] Last Admin: 08/21/18 09:14 Dose: 2 mg Miscellaneous (Lidoderm Patch Removal) 1 each MC DAILY@2200 [facility] Last Admin: 08/21/18 21:01 Dose: 1 each Mupirocin (Bactroban Ointment (For Decolonization) -) 1 applic NS BID [facility] Stop: 08/25/18 21:59 Last Admin: 08/22/18 10:46 Dose: 1 applic Nitroglycerin (Nitrostat -) 0.4 mg SL Q5M PRN PRN Reason: FOR CHEST PAIN Last Admin: 08/20/18 13:56 Dose: 0.4 mg Ruxolitinib Phosphate [Jakafi] 5 Mg 5 mg GT BID [facility] Last Admin: 08/22/18 10:45 Dose: 5 mg Oxycodone HCl (Roxicodone -) 5 mg PO Q6H PRN PRN Reason: PAIN LEVEL 6-10 Last Admin: 08/22/18 05:18 Dose: 5 mg Potassium Chloride (Potassium Chloride Oral Liquid) 40 meq GT DAILY [facility] Last Admin: 08/22/18 10:42 Dose: 40 meq Ranitidine HCl (Zantac Oral Solution -) 150 mg PEG BID [facility] Last Admin: 08/22/18 10:42 Dose: 150 mg Warfarin Sodium (Coumadin -) 2.5 mg PO DAILY@1800 [facility] Last Admin: 08/20/18 17:04 Dose: Not Given - Objective Vital Signs: Vital Signs Temperature 97.7 F 08/22/18 06:00 Pulse Rate 83 08/22/18 06:00 Respiratory Rate 20 08/22/18 09:00 Blood Pressure 104/71 08/22/18 06:00 O2 Sat by Pulse Oximetry (%) 91 L 08/22/18 09:00 Constitutional: Yes: Calm Cardiovascular: Yes: Regular Rate and Rhythm, Tachycardia, S1, S2 Respiratory: Yes: Diminished, On BiPap Gastrointestinal: Yes: Normal Bowel Sounds, Soft Edema: No Neurological: Yes: Alert Labs: CBC, BMP 08/22/18 05:30 08/22/18 05:30 INR, PTT INR 3.37 (0.83-1.09) H 08/22/18 05:30 Problem List - Problems (1) Acute hypoxemic respiratory failure Assessment/Plan: completed abx course on bipap repeat cxr shows better aeration Code(s): J96.01 - ACUTE RESPIRATORY FAILURE WITH HYPOXIA (2) Influenza A Assessment/Plan: tamiflu completed off droplet precautions Code(s): J10.1 - FLU DUE TO OTH IDENT INFLUENZA VIRUS W OTH RESP MANIFEST (3) Hypokalemia Assessment/Plan: resolved Code(s): E87.6 - HYPOKALEMIA (4) Anticoagulant long-term use Assessment/Plan: hx of cva inr is supratherapeutic coumadin on hold Code(s): Z79.01 - HALF-WAY (CURRENT) USE OF ANTICOAGULANTS (5) Hodgkin lymphoma Assessment/Plan: heme on board on jakafi and dexa Code(s): C81.90 - HODGKIN LYMPHOMA, UNSPECIFIED, UNSPECIFIED SITE (6) Hypomagnesemia Assessment/Plan: iv magenusium Code(s): E83.42 - HYPOMAGNESEMIA (7) Hypophosphatemia Assessment/Plan: repleted Code(s): E83.39 - OTHER DISORDERS OF PHOSPHORUS METABOLISM
--- NOTE | 2018-08-22 12:01 | PN ---
Teaching Attending Note Name of Resident: Neisha Charles ATTENDING PHYSICIAN STATEMENT I saw and evaluated the patient. I reviewed the resident's note and discussed the case with the resident. I agree with the resident's findings and plan as documented. SUBJECTIVE: Pt seen and examined in the ICU. Remains on BiPAP but still hypoxic and short of breath. Fio2 85%. OBJECTIVE: Vital Signs Period Temp Pulse Resp BP Sys/Nichols Pulse Ox Last 24 Hr 97.7 F-98.9 F 78-100 19-30 95-117/71-86 91-100 Intake & Output 08/19/18 08/20/18 08/21/18 08/22/18 23:59 23:59 23:59 23:59 Intake Total 880 1780 900 Balance 880 1780 900 Weight 61.6 kg 60.4 kg 61 kg Gen: tachypneic on BiPAP Heart: RRR Lung: poor respiratory effort Abd: soft, nontender Ext: trace edema CBC, BMP 08/22/18 05:30 08/22/18 05:30 Active Medications Acetaminophen (Tylenol -) 650 mg PO Q4H PRN PRN Reason: PAIN OR FEVER Last Admin: 08/21/18 09:14 Dose: 650 mg Albuterol Sulfate (Ventolin 0.083% Nebulizer Soln -) 1 amp NEB Q6H PRN PRN Reason: SHORT OF BREATH/WHEEZING Last Admin: 08/21/18 23:49 Dose: 1 amp Chlorhexidine Gluconate (Hibiclens For Decolonization -) 1 applic TP HS [facility] Last Admin: 08/21/18 21:01 Dose: 1 applic Dexamethasone (Decadron Liquid -) 0.5 mg PO DAILY [facility] Last Admin: 08/22/18 10:43 Dose: 0.5 mg Gabapentin (Neurontin Oral Liquid -) 250 mg PEG TID [facility] Last Admin: 08/22/18 05:18 Dose: 5 ml Guaifenesin (Robitussin Dm -) 10 ml PO Q6H PRN PRN Reason: COUGH Levetiracetam (Keppra Oral Solution -) 500 mg GT BID [facility] Last Admin: 08/22/18 10:43 Dose: 500 mg Lidocaine (Lidoderm Patch -) 1 patch TP DAILY [facility] Last Admin: 08/22/18 10:44 Dose: 1 patch Loperamide HCl (Imodium Liquid -) 2 mg PEG DAILY [facility] Last Admin: 08/21/18 09:14 Dose: 2 mg Methylprednisolone Sodium Succinate (Solu-Medrol -) 40 mg IVPUSH Q8H-IV [facility] Miscellaneous (Lidoderm Patch Removal) 1 each MC DAILY@2200 [facility] Last Admin: 08/21/18 21:01 Dose: 1 each Mupirocin (Bactroban Ointment (For Decolonization) -) 1 applic NS BID [facility] Stop: 08/25/18 21:59 Last Admin: 08/22/18 10:46 Dose: 1 applic Nitroglycerin (Nitrostat -) 0.4 mg SL Q5M PRN PRN Reason: FOR CHEST PAIN Last Admin: 08/20/18 13:56 Dose: 0.4 mg Ruxolitinib Phosphate [Jakafi] 5 Mg 5 mg GT BID [facility] Last Admin: 08/22/18 10:45 Dose: 5 mg Oxycodone HCl (Roxicodone -) 5 mg PO Q6H PRN PRN Reason: PAIN LEVEL 6-10 Last Admin: 08/22/18 05:18 Dose: 5 mg Potassium Chloride (Potassium Chloride Oral Liquid) 40 meq GT DAILY [facility] Last Admin: 08/22/18 10:42 Dose: 40 meq Ranitidine HCl (Zantac Oral Solution -) 150 mg PEG BID [facility] Last Admin: 08/22/18 10:42 Dose: 150 mg Warfarin Sodium (Coumadin -) 2.5 mg PO DAILY@1800 [facility] Last Admin: 08/20/18 17:04 Dose: Not Given ASSESSMENT AND PLAN: Acute Hypoxic Respiratory Failure Pneumonia Atelectasis Influenza A Hodgkins Lymphoma - completed antibiotics - start short course of steroids - inhaled bronchodilators - O2 to keep SpO2 >90% - BiPAP to assist in work of breathing - consider bubble study given extent of A-a gradient - check abdominal ultrasound - aspiration precautions - inhaled bronchodilators - on anticoagulation
[2018-08-22] MEDS: methylPREDNISolone NA SUCC 40 MG/1 ML VIAL IVPUSH SCH ×2 (12:54→18:15)
--- NOTE | 2018-08-22 14:21 | PN ---
Progress Note (short form) - Note Progress Note: Patient seen in follow up. Increased work of breathing last night - transferred to ICU for closer observation - on BIPAP Inpatient Meds reviewed. On Examination: Last Vital Signs Temp Pulse Resp BP Pulse Ox 97.7 F 83 20 104/71 93 L 08/22/18 06:00 08/22/18 06:00 08/22/18 09:00 08/22/18 06:00 08/22/18 11:32 General: In moderate distress off BIPAP. Extremities: No pallor or icterus. No pedal edema. No palpable lymphadenopathy. CVS: S1, S2, regular, no gallop or murmur. Chest: good air entry bilaterally, clear Abdomen: Non-distended, non-tender, no palpable organomegaly. Neuro: Alert, oriented, non-focal. Labs: CBC, BMP 08/22/18 05:30 08/22/18 05:30 Assessment. 37F, SNF resident, with hx CVA, on warfarin, HL s/p allogeneic transplant in 2014, followed at [facility] (Dr. 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 On broad spectrum Abx and Tamiflu. Currently with respiratory deterioration - requiring BIPAP - attributed to rapid AF. Discussed extensively with Dr Tello, who is in cell phone contact with the patient. Continue DEX and Jakafi. Reasonable to also use low dose opioids for unrelieved pain - patient was apparently expressing to her primary oncologist that she was experiencing ongoing back pain. Will follow.
--- NOTE | 2018-08-22 15:30 | PN ---
Progress Note, Physician Chief Complaint: Sinus tachycardia SOB History of Present Illness: This is a 37 year old woman with pmh Hodgkins lymphoma on chemo s/p BMT x 2 2011 and 2013, CVA 04/[address] [facility] and pt states she was found to have blood clots in her heart therefore she has been on Warfarin but she is not aware of a diagnosis of Afib, now admitted with PNA, Influenza, subsequently developed respiratory distress and hypoxia and was transferred to ICU. EKG showed afib with RVR on 08/17/18. Pt was seen and examined in the ICU, on bipap in nad. states she is feeling much better since being transferred to the ICU. 08/22/18 Remains in sinus tach. Low grade fever noted. Remians on BIPAP - Current Medication List Current Medications: Active Medications Acetaminophen (Tylenol -) 650 mg PO Q4H PRN PRN Reason: PAIN OR FEVER Last Admin: 08/21/18 09:14 Dose: 650 mg Albuterol Sulfate (Ventolin 0.083% Nebulizer Soln -) 1 amp NEB Q6H PRN PRN Reason: SHORT OF BREATH/WHEEZING Last Admin: 08/21/18 23:49 Dose: 1 amp Chlorhexidine Gluconate (Hibiclens For Decolonization -) 1 applic TP HS [facility] Last Admin: 08/21/18 21:01 Dose: 1 applic Dexamethasone (Decadron Liquid -) 0.5 mg PO DAILY [facility] Last Admin: 08/22/18 10:43 Dose: 0.5 mg Gabapentin (Neurontin Oral Liquid -) 250 mg PEG TID [facility] Last Admin: 08/22/18 05:18 Dose: 5 ml Guaifenesin (Robitussin Dm -) 10 ml PO Q6H PRN PRN Reason: COUGH Levetiracetam (Keppra Oral Solution -) 500 mg GT BID [facility] Last Admin: 08/22/18 10:43 Dose: 500 mg Lidocaine (Lidoderm Patch -) 1 patch TP DAILY [facility] Last Admin: 08/22/18 10:44 Dose: 1 patch Loperamide HCl (Imodium Liquid -) 2 mg PEG DAILY [facility] Last Admin: 08/21/18 09:14 Dose: 2 mg Methylprednisolone Sodium Succinate (Solu-Medrol -) 40 mg IVPUSH Q8H-IV [facility] Last Admin: 08/22/18 12:54 Dose: 40 mg Miscellaneous (Lidoderm Patch Removal) 1 each MC DAILY@2200 [facility] Last Admin: 08/21/18 21:01 Dose: 1 each Mupirocin (Bactroban Ointment (For Decolonization) -) 1 applic NS BID [facility] Stop: 08/25/18 21:59 Last Admin: 08/22/18 10:46 Dose: 1 applic Nitroglycerin (Nitrostat -) 0.4 mg SL Q5M PRN PRN Reason: FOR CHEST PAIN Last Admin: 08/20/18 13:56 Dose: 0.4 mg Ruxolitinib Phosphate [Jakafi] 5 Mg 5 mg GT BID [facility] Last Admin: 08/22/18 10:45 Dose: 5 mg Oxycodone HCl (Roxicodone -) 5 mg PO Q6H PRN PRN Reason: PAIN LEVEL 6-10 Last Admin: 08/22/18 12:53 Dose: 5 mg Potassium Chloride (Potassium Chloride Oral Liquid) 40 meq GT DAILY [facility] Last Admin: 08/22/18 10:42 Dose: 40 meq Ranitidine HCl (Zantac Oral Solution -) 150 mg PEG BID [facility] Last Admin: 08/22/18 10:42 Dose: 150 mg Warfarin Sodium (Coumadin -) 2.5 mg PO DAILY@1800 [facility] Last Admin: 08/20/18 17:04 Dose: Not Given - Objective Vital Signs: Vital Signs Temperature 100.2 F H 08/22/18 14:00 Pulse Rate 124 H 08/22/18 14:00 Respiratory Rate 27 H 08/22/18 14:00 Blood Pressure 134/94 08/22/18 14:00 O2 Sat by Pulse Oximetry (%) 95 08/22/18 14:22 Constitutional: Yes: Mild Distress HENT: Yes: WNL Cardiovascular: Yes: Regular Rate and Rhythm (Tachy, NL S1S2) Respiratory: Yes: On BiPap Gastrointestinal: Yes: Soft Neurological: Yes: Alert, Oriented Labs: CBC, BMP 08/22/18 05:30 08/22/18 05:30 INR, PTT INR 3.37 (0.83-1.09) H 08/22/18 05:30 Assessment/Plan 37 year old woman with pmh Hodgkins lymphoma on chemo s/p BMT x 2 2011 and 2013 , CVA 04/[address] [facility] and pt states she was found to have blood clots in her heart therefore she has been on Warfarin but she is not aware of a diagnosis of Afib, now admitted with PNA, Influenza, subsequently developed respiratory distress and hypoxia and was transferred to ICU. EKG showed afib with RVR on 08/17/18. Now in Sinus Tachycardia Earlier RAFIB noted, remains on coumadin Sinus tachycardia likely driven by Fever and hypoxia Lasix PRN It is reasonable to rule out an ASD or PFO with a bubble study, but would favor waiting until she is less tachycardic to ensure a better result. Even if the bubble study is positive, she is not a candidate any type of closure procedure at this time. Continue BiPAP INR goal is 2 - 3, presently she is supratherapeutic Will follow with you
[2018-08-22] MEDS ORDERED: INSULIN (NOVOLOG) ASPART 100 UNITS/ML 10ML VIAL ONE (16:42)
--- NOTE | 2018-08-22 17:19 | PN ---
Progress Note, Physician History of Present Illness: AWAKE AND RESPONSIVE BREATHING NON-LABORED ON BIPAP LOW GRADE TEMPS OFF ANTIBIOTICS WBC WNL - Current Medication List Current Medications: Active Medications Acetaminophen (Tylenol -) 650 mg PO Q4H PRN PRN Reason: PAIN OR FEVER Last Admin: 08/21/18 09:14 Dose: 650 mg Albuterol Sulfate (Ventolin 0.083% Nebulizer Soln -) 1 amp NEB Q6H PRN PRN Reason: SHORT OF BREATH/WHEEZING Last Admin: 08/21/18 23:49 Dose: 1 amp Chlorhexidine Gluconate (Hibiclens For Decolonization -) 1 applic TP HS [facility] Last Admin: 08/21/18 21:01 Dose: 1 applic Dexamethasone (Decadron Liquid -) 0.5 mg PO DAILY [facility] Last Admin: 08/22/18 10:43 Dose: 0.5 mg Gabapentin (Neurontin Oral Liquid -) 250 mg PEG TID [facility] Last Admin: 08/22/18 14:42 Dose: 5 ml Guaifenesin (Robitussin Dm -) 10 ml PO Q6H PRN PRN Reason: COUGH Levetiracetam (Keppra Oral Solution -) 500 mg GT BID [facility] Last Admin: 08/22/18 10:43 Dose: 500 mg Lidocaine (Lidoderm Patch -) 1 patch TP DAILY [facility] Last Admin: 08/22/18 10:44 Dose: 1 patch Loperamide HCl (Imodium Liquid -) 2 mg PEG DAILY [facility] Last Admin: 08/21/18 09:14 Dose: 2 mg Methylprednisolone Sodium Succinate (Solu-Medrol -) 40 mg IVPUSH Q8H-IV [facility] Last Admin: 08/22/18 12:54 Dose: 40 mg Miscellaneous (Lidoderm Patch Removal) 1 each MC DAILY@2200 [facility] Last Admin: 08/21/18 21:01 Dose: 1 each Mupirocin (Bactroban Ointment (For Decolonization) -) 1 applic NS BID [facility] Stop: 08/25/18 21:59 Last Admin: 08/22/18 10:46 Dose: 1 applic Nitroglycerin (Nitrostat -) 0.4 mg SL Q5M PRN PRN Reason: FOR CHEST PAIN Last Admin: 08/20/18 13:56 Dose: 0.4 mg Ruxolitinib Phosphate [Jakafi] 5 Mg 5 mg GT BID [facility] Last Admin: 08/22/18 10:45 Dose: 5 mg Oxycodone HCl (Roxicodone -) 5 mg PO Q6H PRN PRN Reason: PAIN LEVEL 6-10 Last Admin: 08/22/18 12:53 Dose: 5 mg Potassium Chloride (Potassium Chloride Oral Liquid) 40 meq GT DAILY [facility] Last Admin: 08/22/18 10:42 Dose: 40 meq Ranitidine HCl (Zantac Oral Solution -) 150 mg PEG BID [facility] Last Admin: 08/22/18 10:42 Dose: 150 mg Warfarin Sodium (Coumadin -) 2.5 mg PO DAILY@1800 [facility] Last Admin: 08/20/18 17:04 Dose: Not Given - Objective Vital Signs: Vital Signs Temperature 100.2 F H 08/22/18 14:00 Pulse Rate 117 H 08/22/18 16:00 Respiratory Rate 26 H 08/22/18 16:00 Blood Pressure 121/89 08/22/18 16:00 O2 Sat by Pulse Oximetry (%) 93 L 08/22/18 16:17 Constitutional: Yes: No Distress Cardiovascular: Yes: Regular Rate and Rhythm, S1, S2 Respiratory: Yes: Diminished Gastrointestinal: Yes: Normal Bowel Sounds, Soft Edema: Yes Labs: CBC, BMP 08/22/18 05:30 08/22/18 05:30 INR, PTT INR 3.37 (0.83-1.09) H 08/22/18 05:30 Assessment/Plan ACUTE INFLUENZA A S/P COURSE OF TAMIFLU BIBASILAR PNEUMONIA S/P ZOSYN LEUKOPENIA- IMPROVED LYMPHOMA OBSERVE OFF ANTIBIOTICS RECULTURE FOR PERSISTANT TEMP PROGNOSIS GUARDED
--- NOTE | 2018-08-22 18:00 | CONS ---
DATE OF CONSULTATION: 08/22/2018 PHYSICAL MEDICINE REHABILITATION CONSULTATION REFERRING PHYSICIAN: Mary Daly M.D. HISTORY OF PRESENT ILLNESS: Patient is a 37-year-old woman with past medical history of Hodgkin lymphoma status post bone marrow transplant x2 in 2011 and 2013 as well as chemotherapy and history of CVA who was admitted with cough productive sputum, weakness, malaise, headache. On admission, patient underwent a CT of the chest and CT angiogram of the chest which showed bilateral lower lobe bronchiectasis with consolidation. No evidence of acute pulmonary embolus. Patient was anticoagulated chronically after a stroke, which she says occurred the day after 2017. She is on BiPAP and difficult to get a full history from, but it sounds that she had been nonambulatory more than a year, so even prior to CVA. She is resident of a alf facility. She was diagnosed with pneumonia, acute hypoxic respiratory failure, is currently on BiPAP. She was also treated for influenza A. There is also mention of systemic inflammatory response syndrome. On admission WBC 6.5, hemoglobin 10.7, platelet count 356. Sodium 136, potassium 3.5, chloride 102, CO2 of 21, BUN 19, creatinine 0.2. She had a low albumin of 3.2, total protein elevated at 6.1, and BNP was slightly elevated at 570. Her INR because super therapeutic on August 19 at 4.57 and currently 3.37. She was transferred to the ICU because of increasing shortness of breath, and as of August 22, WBC is 4.3, hemoglobin 9.4, platelet count 299, elevated BUN 23, creatinine 0.2, elevated CO2 of 33, chloride 97, sodium 137, potassium 3.7. Patient again is currently on BiPAP, I am asked to see the patient in regards to her rehabilitation program. PAST MEDICAL AND SURGICAL HISTORY: Review taken mainly from the medical record, although I tried to confirm some of the facts with the patient. She has a history of Hodgkin lymphoma, CVA affecting the left side and bone marrow transplant x2, chemotherapy. SOCIAL HISTORY: Patient apparently had been living in a private house prior to being in the alf facility, no stairs, but she states she has been nonambulatory in more than year, current function at bedrest. No tobacco history. No alcohol. No drugs. ALLERGIES: BLEOMYCIN and PEANUTS. Also NUT allergy and allergy to RIVAROXABAN. MEDICATION: Extensive and include warfarin chronically after the CVA. REVIEW OF SYSTEMS: No headache, no lightheadedness, no dizziness. No blurry vision, double vision. No nausea, vomiting, difficulty swallowing or chewing, no chest pain, but she is short of breath, dyspneic with any exertion. She has chronic weakness, particularly in the left upper extremity and bilateral lower limbs, no complaints of numbness, tingling, no fever or chills. No numbness. No joint arthralgias. PHYSICAL EXAMINATION: GENERAL: This woman seen lying in bed. She is on BiPAP and has difficulty speaking due to breathing as well as the BiPAP mask. HEENT: Normocephalic and atraumatic. Her extraocular muscles appear intact. She has no obvious facial weakness. NECK: She has multiple scars. EXTREMITIES: Areas of hypopigmentation. No isolated edema or calf tenderness. NEUROMUSCULAR: She is awake and is responsive but again it is difficult to assess mental status. She follows directions. She has contractures in the left upper extremity including the shoulder and elbow flexors. She lacks probably 40 to 50 degrees of elbow extension in the left elbow and only 80 degrees of flexion. Right shoulder has better range, and right elbow has full range. She has 3/5 strength in the left distal upper limb compared to 5/5 in the right upper limb. Normal sensation to light touch in the upper and lower extremities. She can move both of her feet, dorsiflexion, plantar flexion, but has weakness, otherwise throughout her hip girdle, knee extensors, again normal sensations. She has brisk reflexes on the left compared to the right side. OVERALL IMPRESSION: 1. Deficits to mobility and activities of daily living which appear longstanding. 2. Deconditioning. 3. Pneumonia. 4. Acute hypoxic respiratory failure. 5. Influenza. 6. History of cerebrovascular accident, apparently affecting her left side. 7. Contractures involving the left upper limb. 8. Increased risks for deep venous thrombosis due to immobility, but currently anticoagulated on warfarin. 9. History of Hodgkin lymphoma status post bone marrow transplant x2 and chemotherapy. 10. Anemia. 11. Hypoalbuminemia. PLAN AND SUGGESTIONS: 1. Daily range of motion. 2. Patient is not well enough for active physical therapy program at this time. 3. Patient is resident of alf facility which appears to be her discharge plan at this point. 4. Anticoagulated, no further DVT prophylaxis needed, but super therapeutic. 5. Skin precautions, avoid heel sacral pressure. 6. Supportive care. 7. Will follow. Thanks for this referral. RAS LYNN M.D. [id number]
[2018-08-22] MEDS: WARFARIN NA 2.5 MG TABLET (FP) PO SCH (19:16)
[2018-08-22] MEDS: CHLORHEXIDINE GLUCONATE 4% CLEANSER FOR DECOLONIZATION TP SCH (21:09)
[2018-08-22] MEDS ORDERED: INSULIN (LEVEMIR) 100 UNITS/ML UNITS SQ ONE (21:16)
[2018-08-22] MEDS: LIDOCAINE PATCH REMOVAL MC SCH (21:17)
--- NOTE | 2018-08-22 21:47 | PN ---
Progress Note (short form) - Note Progress Note: patient seen and eamined reports feeling slightly better on BIPAP Cor: RSR, No murmurs, No gallops Lungs: scattered wheezes Abd: Soft, Normal bowel sounds, No organomegaly Ext:No significant edema labs/eds reviewed a/p 37F, SNF resident, with hx CVA, on warfarin, HL s/p allogeneic transplant in 2014, followed at [facility] (Dr. 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 On broad spectrum Abx and Tamiflu. Continues to have SOB and requiring NRB. 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 on steroids/nebs on pain meds chronically off antibiotics
[2018-08-23] MEDS: methylPREDNISolone NA SUCC 40 MG/1 ML VIAL IVPUSH SCH ×3 (02:16→17:35)
[2018-08-23] MEDS: GABAPENTIN 250 MG/5 ML ORAL SOLUTION, 470 ML BOTTLE PEG SCH ×3 (06:27→21:34)
[2018-08-23 06:36] LABS: INR 1.76 (0.83-1.09); PROTHROMBIN TIME (PATIENT) 20.9 SEC (9.7-13.0)
[2018-08-23 06:51] LABS: ALBUMIN 2.7 g/dl (3.4-5.0); ALK PHOS 214 U/L (45-117); ANION GAP 6 MMOL/L (8-16); BILIRUBIN,TOTAL 0.3 mg/dL (0.2-1); BLOOD UREA NITROGEN 23 mg/dL (7-18); CALCIUM 8.6 mg/dL (8.5-10.1); CHLORIDE 96 mmol/L (98-107); CO2 35 mmol/L (21-32); CREATININE 0.5 mg/dL (0.55-1.3); GLUCOSE,RANDOM 272 mg/dL (74-106); MAGNESIUM 1.9 mg/dL (1.8-2.4); PHOSPHOROUS 2.2 mg/dL (2.5-4.9); POTASSIUM 4.6 mmol/L (3.5-5.1); SGOT/AST 44 U/L (15-37); SGPT/ALT 26 U/L (13-61); SODIUM 136 mmol/L (136-145); TOT PROT 5.1 g/dl (6.4-8.2)
[2018-08-23 07:05] LABS: BASO % 0.1 % (0-2.0); HEMATOCRIT 26.7 % (32.4-45.2); HEMOGLOBIN 8.9 GM/dL (10.7-15.3); LYMPH % 1.2 % (8-40); MCHC 33.3 g/dl (32.0-36.0); MEAN CELL VOLUME 78.2 fl (80-96); MEAN PLT VOLUME 8.8 fl (7.5-11.1); MONO % 3.1 % (3.8-10.2); NEUT % 95.6 % (42.8-82.8); PLATELET COUNT 269 K/MM3 (134-434); RBC 3.42 M/mm3 (3.60-5.2); RDW 24.9 % (11.6-15.6)
--- NOTE | 2018-08-23 09:04 | PN ---
Physical Exam: SUBJECTIVE: Patient seen and examined this AM. Breathing continues to improve. No repeat episodes of diarrhea. Endorses chills. Denies fevers, chest pain, nausea, vomiting, diarrhea, constipation. OBJECTIVE: Vital Signs Period Temp Pulse Resp BP Sys/Nichols Pulse Ox Last 24 Hr 98.4 F-100.2 F 72-124 17-31 113-156/80-100 91-100 GENERAL: A&Ox3, NAD HEAD: NCAT EYES: PERRL, EOMI ENT: Dry mucous membranes NECK: Supple, No JVD LUNGS: Tachypnea, On Bipap however poor inspiratory effort, Rhonchi heard throughout the upper airway HEART: RRR, S1, S2 without murmur CHEST: Port on the right upper chest BACK: Healing Stage 2 ulcer over the Buttock region, No Active drainage, no surrounding erythema ABDOMEN: Soft, nontender, nondistended, + bowel sounds, no guarding, PEG tube present in the Upper abdomen EXTREMITIES: No edema NEUROLOGICAL: Cranial nerves II through XII grossly intact. Normal speech SKIN: Warm, dry,Sclerodermic changes noted over extremities Laboratory Results - last 24 hr 08/22/18 08/22/18 08/22/18 05:30 05:30 17:00 WBC RBC Hgb Hct MCV MCH MCHC RDW Plt Count MPV Absolute Neuts (auto) Neutrophils % Lymphocytes % Monocytes % Eosinophils % Basophils % Nucleated RBC % ESR 77 H PT with INR INR Sodium 137 Potassium 3.7 Chloride 97 L Carbon Dioxide 33 H Anion Gap 7 L BUN 23 H Creatinine 0.2 L Creat Clearance w eGFR > 60 Random Glucose 123 H Calcium 8.8 Phosphorus 2.3 L Magnesium 1.4 L Total Bilirubin 0.4 AST 19 ALT 18 Alkaline Phosphatase 168 H C-Reactive Protein 17.8 H Total Protein 6.3 L Albumin 2.9 L Stool Occult Blood Negative 08/23/18 08/23/18 08/23/18 05:30 05:30 05:30 WBC 11.0 H RBC 3.42 L Hgb 8.9 L Hct 26.7 L MCV 78.2 L MCH 26.0 MCHC 33.3 RDW 24.9 H Plt Count 269 MPV 8.8 Absolute Neuts (auto) 10.6 H Neutrophils % 95.6 H Lymphocytes % 1.2 L D Monocytes % 3.1 L Eosinophils % 0.0 D Basophils % 0.1 D Nucleated RBC % 1 H ESR PT with INR 20.90 H INR 1.76 H Sodium 136 Potassium 4.6 Chloride 96 L Carbon Dioxide 35 H Anion Gap 6 L BUN 23 H Creatinine 0.5 L Creat Clearance w eGFR > 60 Random Glucose 272 H Calcium 8.6 Phosphorus 2.2 L Magnesium 1.9 Total Bilirubin 0.3 AST 44 H ALT 26 Alkaline Phosphatase 214 H C-Reactive Protein Total Protein 5.1 L Albumin 2.7 L Stool Occult Blood Active Medications Acetaminophen (Tylenol -) 650 mg PO Q4H PRN PRN Reason: PAIN OR FEVER Last Admin: 08/21/18 09:14 Dose: 650 mg Albuterol Sulfate (Ventolin 0.083% Nebulizer Soln -) 1 amp NEB Q6H PRN PRN Reason: SHORT OF BREATH/WHEEZING Last Admin: 08/21/18 23:49 Dose: 1 amp Chlorhexidine Gluconate (Hibiclens For Decolonization -) 1 applic TP HS [facility] Last Admin: 08/22/18 21:09 Dose: 1 applic Dexamethasone (Decadron Liquid -) 0.5 mg PO DAILY [facility] Last Admin: 08/22/18 10:43 Dose: 0.5 mg Gabapentin (Neurontin Oral Liquid -) 250 mg PEG TID [facility] Last Admin: 08/23/18 06:27 Dose: 250 ml Guaifenesin (Robitussin Dm -) 10 ml PO Q6H PRN PRN Reason: COUGH Levetiracetam (Keppra Oral Solution -) 500 mg GT BID [facility] Last Admin: 08/22/18 21:09 Dose: 500 mg Lidocaine (Lidoderm Patch -) 1 patch TP DAILY [facility] Last Admin: 08/22/18 10:44 Dose: 1 patch Loperamide HCl (Imodium Liquid -) 2 mg PEG DAILY [facility] Last Admin: 08/21/18 09:14 Dose: 2 mg Methylprednisolone Sodium Succinate (Solu-Medrol -) 40 mg IVPUSH Q8H-IV [facility] Last Admin: 08/23/18 02:16 Dose: 40 mg Miscellaneous (Lidoderm Patch Removal) 1 each MC DAILY@2200 [facility] Last Admin: 08/22/18 21:17 Dose: 1 each Mupirocin (Bactroban Ointment (For Decolonization) -) 1 applic NS BID [facility] Stop: 08/25/18 21:59 Last Admin: 08/22/18 21:10 Dose: 1 applic Nitroglycerin (Nitrostat -) 0.4 mg SL Q5M PRN PRN Reason: FOR CHEST PAIN Last Admin: 08/20/18 13:56 Dose: 0.4 mg Ruxolitinib Phosphate [Jakafi] 5 Mg 5 mg GT BID [facility] Last Admin: 08/22/18 21:12 Dose: 5 mg Oxycodone HCl (Roxicodone -) 5 mg PO Q6H PRN PRN Reason: PAIN LEVEL 6-10 Last Admin: 08/22/18 20:27 Dose: 5 mg Potassium Chloride (Potassium Chloride Oral Liquid) 40 meq GT DAILY [facility] Last Admin: 08/22/18 10:42 Dose: 40 meq Ranitidine HCl (Zantac Oral Solution -) 150 mg PEG BID [facility] Last Admin: 08/22/18 21:08 Dose: 150 mg Warfarin Sodium (Coumadin -) 2.5 mg PO DAILY@1800 [facility] Last Admin: 08/22/18 19:16 Dose: Not Given ASSESSMENT/PLAN: 37 y/o F with a PMHx of hodgkins lymphoma (currently on chemo, Dexamethasone, Ruxolitinib Phosphate), AFib (previously on Warfarin, currently held), who recently completed a course of Zosyn, Tamiflu for PNA/Influenza, will be monitored in ICU for Acute respiratory distress. #Neuro -A&Ox3, NAD -Continue Levetiracetam -Aspiration precautions -Monitor for changes in mental status #Cardio AFib w/ RVR (on Warfarin) Tachycardia, Improved Supratherapeutic INR -Dr. Velasco consulted, Appreciate Rec's -Continue Nitroglycerin PRN -Restart home dose Warfarin -Trend PT/INR -Tele monitoring -Vital signs Q4H -IV Furosemide PRN #Pulm Acute Respiratory Distress -Unclear etiology -CXR: Retrocardiac atelectasis or infiltrate with fluid and right jugular line persists. The right base is better aerated. -Continue Albuterol Nebulizer -Continue Bilevel; Will wean as tolerated -Supplemental O2 to maintain SpO2 > 90% -GISELLE, Anca pending -ESR, CRP Elevated -Continue IV Solumedrol 40mg Q8h #ID Sepsis due to Pneumonia, Influenza A Positive -Recently completed course of Zosyn, Tamiflu -Legionella Urine Antigen, Urine and blood cx negative -Will monitor off ABx for now -Dr. Goins Consulted, Appreciate rec's #Heme Microcytic Anemia Hx of hodgkins lymphoma (currently on chemo, and s/p BMT x2-2011, 2013 on Dexamethasone, Ruxolitinib Phosphate [Jakafi]) -Continue Dexamethasone, Gabapentin, Ruxolitinib -Dr. Morrow Consulted, appreciate Rec's -Palliative care consult given guarded prognosis #GI Recent diarrhea, Concern for C. Diff -Continue Ranitidine -Clinimix -C. Diff Ag pending -Hold home dose Loperamide -Abdominal US: Slightly dense and coarse echotexture of the liver suggestive of mild fatty infiltration versus hepatocellular disease. Right kidney is isoechoic , may be suggestive of chronic medical renal disease. #Renal -Continue to monitor I&Os, Urine output #Endo Elevated BG in the setting of Dexamethasone use -Continue to monitor #FEN -No standing fluids -Replete Lytes PRN -Tube feed jevity 1.5 #PPx -DVT: SCDs, home dose Warfarin -GI: Ranitidine Code status: Full Code Dispo: Continue to monitor in ICU Visit type - Emergency Visit Emergency Visit: Yes ED Registration Date: 08/12/18 Care time: The patient presented to the Emergency Department on the above date and was hospitalized for further evaluation of their emergent condition. - New Patient This patient is new to me today: No - Critical Care Critical Care patient: Yes Total Critical Care Time (in minutes): 36 Critical Care Statement: The care of this patient involved high complexity decision making to prevent further life threatening deterioration of the patient 's condition and/or to evaluate & treat vital organ system(s) failure or risk of failure.
--- NOTE | 2018-08-23 09:44 | PN ---
Progress Note, Physician - Current Medication List Current Medications: Active Medications Acetaminophen (Tylenol -) 650 mg PO Q4H PRN PRN Reason: PAIN OR FEVER Last Admin: 08/21/18 09:14 Dose: 650 mg Albuterol Sulfate (Ventolin 0.083% Nebulizer Soln -) 1 amp NEB Q6H PRN PRN Reason: SHORT OF BREATH/WHEEZING Last Admin: 08/21/18 23:49 Dose: 1 amp Chlorhexidine Gluconate (Hibiclens For Decolonization -) 1 applic TP HS [facility] Last Admin: 08/22/18 21:09 Dose: 1 applic Dexamethasone (Decadron Liquid -) 0.5 mg PO DAILY [facility] Last Admin: 08/22/18 10:43 Dose: 0.5 mg Gabapentin (Neurontin Oral Liquid -) 250 mg PEG TID [facility] Last Admin: 08/23/18 06:27 Dose: 250 ml Guaifenesin (Robitussin Dm -) 10 ml PO Q6H PRN PRN Reason: COUGH Levetiracetam (Keppra Oral Solution -) 500 mg GT BID [facility] Last Admin: 08/22/18 21:09 Dose: 500 mg Lidocaine (Lidoderm Patch -) 1 patch TP DAILY [facility] Last Admin: 08/22/18 10:44 Dose: 1 patch Loperamide HCl (Imodium Liquid -) 2 mg PEG DAILY [facility] Last Admin: 08/21/18 09:14 Dose: 2 mg Methylprednisolone Sodium Succinate (Solu-Medrol -) 40 mg IVPUSH Q8H-IV [facility] Last Admin: 08/23/18 02:16 Dose: 40 mg Miscellaneous (Lidoderm Patch Removal) 1 each MC DAILY@2200 [facility] Last Admin: 08/22/18 21:17 Dose: 1 each Mupirocin (Bactroban Ointment (For Decolonization) -) 1 applic NS BID [facility] Stop: 08/25/18 21:59 Last Admin: 08/22/18 21:10 Dose: 1 applic Nitroglycerin (Nitrostat -) 0.4 mg SL Q5M PRN PRN Reason: FOR CHEST PAIN Last Admin: 08/20/18 13:56 Dose: 0.4 mg Ruxolitinib Phosphate [Jakafi] 5 Mg 5 mg GT BID [facility] Last Admin: 08/22/18 21:12 Dose: 5 mg Oxycodone HCl (Roxicodone -) 5 mg PO Q6H PRN PRN Reason: PAIN LEVEL 6-10 Last Admin: 08/22/18 20:27 Dose: 5 mg Potassium Chloride (Potassium Chloride Oral Liquid) 40 meq GT DAILY [facility] Last Admin: 08/22/18 10:42 Dose: 40 meq Ranitidine HCl (Zantac Oral Solution -) 150 mg PEG BID [facility] Last Admin: 08/22/18 21:08 Dose: 150 mg Warfarin Sodium (Coumadin -) 2.5 mg PO DAILY@1800 [facility] Last Admin: 08/22/18 19:16 Dose: Not Given - Objective Vital Signs: Vital Signs Temperature 98.6 F 08/23/18 06:00 Pulse Rate 77 08/23/18 06:00 Respiratory Rate 19 08/23/18 06:00 Blood Pressure 126/87 08/23/18 06:00 O2 Sat by Pulse Oximetry (%) 96 08/23/18 08:19 Cardiovascular: Yes: S1, S2 Respiratory: Yes: Diminished, On BiPap Gastrointestinal: Yes: Normal Bowel Sounds, Soft Labs: CBC, BMP 08/23/18 05:30 08/23/18 05:30 INR, PTT INR 1.76 (0.83-1.09) H 08/23/18 05:30 Assessment/Plan - Problems (1) Acute hypoxemic respiratory failure Assessment/Plan: completed abx course on bipap repeat cxr shows better aeration Code(s): J96.01 - ACUTE RESPIRATORY FAILURE WITH HYPOXIA (2) Influenza A Assessment/Plan: tamiflu completed off droplet precautions Code(s): J10.1 - FLU DUE TO OTH IDENT INFLUENZA VIRUS W OTH RESP MANIFEST (3) Hypokalemia Assessment/Plan: resolved Code(s): E87.6 - HYPOKALEMIA (4) Anticoagulant long-term use Assessment/Plan: hx of cva inr-monitor Laboratory Tests 08/21/18 08/22/18 08/23/18 12:00 05:30 05:30 INR 3.53 H 3.37 H 1.76 H coumadin per inr--resume Code(s): Z79.01 - SKILLED NURSING (CURRENT) USE OF ANTICOAGULANTS (5) Hodgkin lymphoma Assessment/Plan: heme on board on jakafi and dexa Code(s): C81.90 - HODGKIN LYMPHOMA, UNSPECIFIED, UNSPECIFIED SITE (6) Hypomagnesemia Assessment/Plan: iv magenusium Code(s): E83.42 - HYPOMAGNESEMIA (7) Hypophosphatemia Assessment/Plan: repleted Code(s): E83.39 - OTHER DISORDERS OF PHOSPHORUS METABOLISM
--- NOTE | 2018-08-23 09:52 | PN ---
Physical Exam: SUBJECTIVE: Patient seen and examined; on BiPAP ; H/H slightly dropping; on coumadin; was supratheraputic, now sub; no active signs of bleed; rapid afib with rvr this am OBJECTIVE: Vital Signs Period Temp Pulse Resp BP Sys/Nichols Pulse Ox Last 24 Hr 98.4 F-100.2 F 72-124 17-31 113-156/80-100 92-100 GENERAL: The patient on BiPAP HEAD: Normal with no signs of trauma. LUNGS: crackles; bases; HEART: Regular rate and irreg rhythm, S1, S2 without murmur, rub or gallop. ABDOMEN: Soft, nontender, nondistended, normoactive bowel sounds, no guarding, no rebound, no hepatosplenomegaly, no masses. EXTREMITIES: 2+ pulses, warm, well-perfused, no edema. NEUROLOGICAL:lethargic Laboratory Results - last 24 hr 08/22/18 08/22/18 08/22/18 05:30 05:30 17:00 WBC RBC Hgb Hct MCV MCH MCHC RDW Plt Count MPV Absolute Neuts (auto) Neutrophils % Lymphocytes % Monocytes % Eosinophils % Basophils % Nucleated RBC % ESR 77 H PT with INR INR Sodium 137 Potassium 3.7 Chloride 97 L Carbon Dioxide 33 H Anion Gap 7 L BUN 23 H Creatinine 0.2 L Creat Clearance w eGFR > 60 Random Glucose 123 H Calcium 8.8 Phosphorus 2.3 L Magnesium 1.4 L Total Bilirubin 0.4 AST 19 ALT 18 Alkaline Phosphatase 168 H C-Reactive Protein 17.8 H Total Protein 6.3 L Albumin 2.9 L Stool Occult Blood Negative 08/23/18 08/23/18 08/23/18 05:30 05:30 05:30 WBC 11.0 H RBC 3.42 L Hgb 8.9 L Hct 26.7 L MCV 78.2 L MCH 26.0 MCHC 33.3 RDW 24.9 H Plt Count 269 MPV 8.8 Absolute Neuts (auto) 10.6 H Neutrophils % 95.6 H Lymphocytes % 1.2 L D Monocytes % 3.1 L Eosinophils % 0.0 D Basophils % 0.1 D Nucleated RBC % 1 H ESR PT with INR 20.90 H INR 1.76 H Sodium 136 Potassium 4.6 Chloride 96 L Carbon Dioxide 35 H Anion Gap 6 L BUN 23 H Creatinine 0.5 L Creat Clearance w eGFR > 60 Random Glucose 272 H Calcium 8.6 Phosphorus 2.2 L Magnesium 1.9 Total Bilirubin 0.3 AST 44 H ALT 26 Alkaline Phosphatase 214 H C-Reactive Protein Total Protein 5.1 L Albumin 2.7 L Stool Occult Blood Active Medications Generic Name Dose Route Start Last Admin Trade Name Freq PRN Reason Stop Dose Admin Acetaminophen 650 mg 08/14/18 01:26 08/21/18 09:14 Tylenol - PO 650 mg Q4H PRN Administration PAIN OR FEVER Albuterol Sulfate 1 amp 08/14/18 01:26 08/21/18 23:49 Ventolin 0.083% Nebulizer Soln - NEB 1 amp Q6H PRN Administration SHORT OF BREATH/WHEEZING Chlorhexidine Gluconate 1 applic 08/20/18 22:00 08/22/18 21:09 Hibiclens For Decolonization - TP 1 applic HS [facility] Administration Dexamethasone 0.5 mg 08/22/18 10:00 08/22/18 10:43 Decadron Liquid - PO 0.5 mg DAILY [facility] Administration Gabapentin 250 mg 08/14/18 06:00 08/23/18 06:27 Neurontin Oral Liquid - PEG 250 ml TID [facility] Administration Guaifenesin 10 ml 08/21/18 22:50 Robitussin Dm - PO Q6H PRN COUGH Levetiracetam 500 mg 08/14/18 10:00 08/22/18 21:09 Keppra Oral Solution - GT 500 mg BID [facility] Administration Lidocaine 1 patch 08/21/18 12:00 08/22/18 10:44 Lidoderm Patch - TP 1 patch DAILY [facility] Administration Loperamide HCl 2 mg 08/21/18 10:00 08/21/18 09:14 Imodium Liquid - PEG 2 mg DAILY [facility] Administration Methylprednisolone Sodium Succinate 40 mg 08/22/18 11:45 08/23/18 02:16 Solu-Medrol - IVPUSH 40 mg Q8H-IV [facility] Administration Miscellaneous 1 each 08/21/18 22:00 08/22/18 21:17 Lidoderm Patch Removal MC 1 each DAILY@2200 [facility] Administration Mupirocin 1 applic 08/20/18 22:00 08/22/18 21:10 Bactroban Ointment (For Decolonization) - NS 08/25/18 21:59 1 applic BID [facility] Administration Nitroglycerin 0.4 mg 08/17/18 21:59 08/20/18 13:56 Nitrostat - SL 0.4 mg Q5M PRN Administration FOR CHEST PAIN Ruxolitinib 5 mg 08/14/18 10:00 08/22/18 21:12 Phosphate [Jakafi] 5 GT 5 mg Mg BID [facility] Administration Oxycodone HCl 5 mg 08/21/18 11:47 08/22/18 20:27 Roxicodone - PO 5 mg Q6H PRN Administration PAIN LEVEL 6-10 Potassium Chloride 40 meq 08/14/18 10:00 08/22/18 10:42 Potassium Chloride Oral Liquid GT 40 meq DAILY [facility] Administration Ranitidine HCl 150 mg 08/14/18 10:00 08/22/18 21:08 Zantac Oral Solution - PEG 150 mg BID [facility] Administration Warfarin Sodium 2.5 mg 08/13/18 20:00 08/22/18 19:16 Coumadin - PO Not Given DAILY@1800 [facility] ASSESSMENT/PLAN: This is a 37 yo F, SNF resident, with hx CVA, on warfarin, Hodgkin lymphopma s/ p autologous transplant (failed) and allogeneic transplant in 2014, followed at [facility] (Dr. 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 On broad spectrum Abx and Tamiflu. 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 -drop in hemoglobin noted; monitor CBC; vitals stable; no signs of bleed; FOBT Visit type - Emergency Visit Emergency Visit: Yes ED Registration Date: 08/12/18 Care time: The patient presented to the Emergency Department on the above date and was hospitalized for further evaluation of their emergent condition. - New Patient This patient is new to me today: No - Critical Care Critical Care patient: Yes Total Critical Care Time (in minutes): 45 Critical Care Statement: The care of this patient involved high complexity decision making to prevent further life threatening deterioration of the patient 's condition and/or to evaluate & treat vital organ system(s) failure or risk of failure.
[2018-08-23] MEDS: RANITIDINE HCL 150 MG/10 ML UNIT-DOSE PEG SCH ×2 (10:02→21:34)
[2018-08-23] MEDS: levETIRAcetam 500 MG/5 ML ORAL SOLUTION (UNIT-DOSE CUPS) GT SCH ×2 (10:02→21:34)
[2018-08-23] MEDS: POTASSIUM CHLORIDE ORAL LIQUID 20 MEQ/15 ML GT SCH (10:02)
[2018-08-23] MEDS: DEXAMETHASONE LIQUID 0.5 MG/5 ML 240 ML BULK BOTTLE PO SCH (10:03)
[2018-08-23] MEDS: LIDOCAINE 5% TOPICAL PATCH TP SCH (10:03)
[2018-08-23] MEDS: MUPIROCIN 2% TOPICAL OINTMENT FOR DECOLONIZATION NS SCH ×2 (11:06→21:34)
[2018-08-23] MEDS: RUXOLITINIB PHOSPHATE 5 MG GT SCH ×2 (11:06→22:44)
[2018-08-23 11:32] LABS: ANISOCYTOSIS 1+; MACROCYTOSIS 0; PLATELET ESTIMATE NORMAL; TARGET CELLS 1+
--- NOTE | 2018-08-23 11:52 | PN ---
Teaching Attending Note Name of Resident: Neisha Charles ATTENDING PHYSICIAN STATEMENT I saw and evaluated the patient. I reviewed the resident's note and discussed the case with the resident. I agree with the resident's findings and plan as documented. SUBJECTIVE: Pt seen and examined in the ICU. Saturations much improved on lower FiO2. States breathing better today. Remains on BiPAP. OBJECTIVE: Vital Signs Period Temp Pulse Resp BP Sys/Nichols Pulse Ox Last 24 Hr 98.4 F-100.2 F 72-124 17-27 113-134/80-100 93-100 Intake & Output 08/20/18 08/21/18 08/22/18 08/23/18 23:59 23:59 23:59 23:59 Intake Total 1780 2500 672 Balance 1780 2500 672 Weight 61.6 kg 60.4 kg 61 kg 61.734 kg Gen: less tachypneic on BiPAP Heart: RRR Lung :decreased breath sounds at the bases Abd: soft, nontender Ext: trace edema CBC, BMP 08/23/18 05:30 08/23/18 05:30 Active Medications Acetaminophen (Tylenol -) 650 mg PO Q4H PRN PRN Reason: PAIN OR FEVER Last Admin: 08/21/18 09:14 Dose: 650 mg Albuterol Sulfate (Ventolin 0.083% Nebulizer Soln -) 1 amp NEB Q6H PRN PRN Reason: SHORT OF BREATH/WHEEZING Last Admin: 08/21/18 23:49 Dose: 1 amp Chlorhexidine Gluconate (Hibiclens For Decolonization -) 1 applic TP HS [facility] Last Admin: 08/22/18 21:09 Dose: 1 applic Dexamethasone (Decadron Liquid -) 0.5 mg PO DAILY [facility] Last Admin: 08/23/18 10:03 Dose: 0.5 mg Gabapentin (Neurontin Oral Liquid -) 250 mg PEG TID [facility] Last Admin: 08/23/18 06:27 Dose: 250 ml Guaifenesin (Robitussin Dm -) 10 ml PO Q6H PRN PRN Reason: COUGH Levetiracetam (Keppra Oral Solution -) 500 mg GT BID [facility] Last Admin: 08/23/18 10:02 Dose: 500 mg Lidocaine (Lidoderm Patch -) 1 patch TP DAILY [facility] Last Admin: 08/23/18 10:03 Dose: 1 patch Loperamide HCl (Imodium Liquid -) 2 mg PEG DAILY [facility] Last Admin: 08/21/18 09:14 Dose: 2 mg Methylprednisolone Sodium Succinate (Solu-Medrol -) 40 mg IVPUSH Q8H-IV [facility] Last Admin: 08/23/18 10:03 Dose: 40 mg Miscellaneous (Lidoderm Patch Removal) 1 each MC DAILY@2200 [facility] Last Admin: 08/22/18 21:17 Dose: 1 each Mupirocin (Bactroban Ointment (For Decolonization) -) 1 applic NS BID [facility] Stop: 08/25/18 21:59 Last Admin: 08/23/18 11:06 Dose: 1 applic Nitroglycerin (Nitrostat -) 0.4 mg SL Q5M PRN PRN Reason: FOR CHEST PAIN Last Admin: 08/20/18 13:56 Dose: 0.4 mg Ruxolitinib Phosphate [Jakafi] 5 Mg 5 mg GT BID [facility] Last Admin: 08/23/18 11:06 Dose: 5 mg Oxycodone HCl (Roxicodone -) 5 mg PO Q6H PRN PRN Reason: PAIN LEVEL 6-10 Last Admin: 08/22/18 20:27 Dose: 5 mg Potassium Chloride (Potassium Chloride Oral Liquid) 40 meq GT DAILY [facility] Last Admin: 08/23/18 10:02 Dose: 40 meq Ranitidine HCl (Zantac Oral Solution -) 150 mg PEG BID [facility] Last Admin: 08/23/18 10:02 Dose: 150 mg Warfarin Sodium (Coumadin -) 2.5 mg PO DAILY@1800 [facility] Last Admin: 08/22/18 19:16 Dose: Not Given ASSESSMENT AND PLAN: Acute Hypoxic Respiratory Failure Pneumonia Atelectasis Influenza A Hodgkins Lymphoma - completed antibiotics - continue short course of steroids - inhaled bronchodilators - O2 to keep SpO2 >90% - BiPAP to assist in work of breathing - aspiration precautions - inhaled bronchodilators - on anticoagulation - continue ICU monitoring critical care time spent in reviewing chart, evaluating patient and formulating plan 35 min
--- NOTE | 2018-08-23 12:04 | PN ---
Progress Note, Physician History of Present Illness: seen and examined today. remains in icu. on bipap. - Current Medication List Current Medications: Active Medications Acetaminophen (Tylenol -) 650 mg PO Q4H PRN PRN Reason: PAIN OR FEVER Last Admin: 08/21/18 09:14 Dose: 650 mg Albuterol Sulfate (Ventolin 0.083% Nebulizer Soln -) 1 amp NEB Q6H PRN PRN Reason: SHORT OF BREATH/WHEEZING Last Admin: 08/21/18 23:49 Dose: 1 amp Chlorhexidine Gluconate (Hibiclens For Decolonization -) 1 applic TP HS [facility] Last Admin: 08/22/18 21:09 Dose: 1 applic Dexamethasone (Decadron Liquid -) 0.5 mg PO DAILY [facility] Last Admin: 08/23/18 10:03 Dose: 0.5 mg Gabapentin (Neurontin Oral Liquid -) 250 mg PEG TID [facility] Last Admin: 08/23/18 06:27 Dose: 250 ml Guaifenesin (Robitussin Dm -) 10 ml PO Q6H PRN PRN Reason: COUGH Levetiracetam (Keppra Oral Solution -) 500 mg GT BID [facility] Last Admin: 08/23/18 10:02 Dose: 500 mg Lidocaine (Lidoderm Patch -) 1 patch TP DAILY [facility] Last Admin: 08/23/18 10:03 Dose: 1 patch Loperamide HCl (Imodium Liquid -) 2 mg PEG DAILY [facility] Last Admin: 08/21/18 09:14 Dose: 2 mg Methylprednisolone Sodium Succinate (Solu-Medrol -) 40 mg IVPUSH Q8H-IV [facility] Last Admin: 08/23/18 10:03 Dose: 40 mg Miscellaneous (Lidoderm Patch Removal) 1 each MC DAILY@2200 [facility] Last Admin: 08/22/18 21:17 Dose: 1 each Mupirocin (Bactroban Ointment (For Decolonization) -) 1 applic NS BID [facility] Stop: 08/25/18 21:59 Last Admin: 08/23/18 11:06 Dose: 1 applic Nitroglycerin (Nitrostat -) 0.4 mg SL Q5M PRN PRN Reason: FOR CHEST PAIN Last Admin: 08/20/18 13:56 Dose: 0.4 mg Ruxolitinib Phosphate [Jakafi] 5 Mg 5 mg GT BID [facility] Last Admin: 08/23/18 11:06 Dose: 5 mg Oxycodone HCl (Roxicodone -) 5 mg PO Q6H PRN PRN Reason: PAIN LEVEL 6-10 Last Admin: 08/22/18 20:27 Dose: 5 mg Potassium Chloride (Potassium Chloride Oral Liquid) 40 meq GT DAILY [facility] Last Admin: 08/23/18 10:02 Dose: 40 meq Ranitidine HCl (Zantac Oral Solution -) 150 mg PEG BID [facility] Last Admin: 08/23/18 10:02 Dose: 150 mg Warfarin Sodium (Coumadin -) 2.5 mg PO DAILY@1800 [facility] Last Admin: 08/22/18 19:16 Dose: Not Given - Objective Vital Signs: Vital Signs Temperature 98.6 F 08/23/18 06:00 Pulse Rate 77 08/23/18 06:00 Respiratory Rate 19 08/23/18 06:00 Blood Pressure 126/87 08/23/18 06:00 O2 Sat by Pulse Oximetry (%) 96 08/23/18 08:19 Constitutional: Yes: No Distress, Calm Eyes: Yes: Conjunctiva Clear, EOM Intact HENT: Yes: Atraumatic, Normocephalic Cardiovascular: Yes: Tachycardia, S1, S2. No: Regular Rate and Rhythm, Bradycardia, Pulse Irregular, Bruit, JVD, Gallop, Murmur, Rub, S3, S4, Varicosities Respiratory: Yes: Regular, Diminished. No: Rales, Rhonchi, Wheezes Gastrointestinal: Yes: Normal Bowel Sounds Edema: No Peripheral Pulses WNL: Yes Neurological: Yes: Alert Psychiatric: Yes: Alert Labs: CBC, BMP 08/23/18 05:30 08/23/18 05:30 INR, PTT INR 1.76 (0.83-1.09) H 08/23/18 05:30 - ....Imaging Chest X-ray: Report Reviewed, Image Reviewed EKG: Report Reviewed, Image Reviewed Other: Report Reviewed, Image Reviewed (tele-sinus tach, no further afib) Assessment/Plan 37 year old woman with pmh Hodgkins lymphoma on chemo s/p BMT x 2 2011 and 2014 , CVA 04/2018 treated at [facility] and pt states she was found to have blood clots in her heart therefore she has been on Warfarin but she is not aware of a diagnosis of Afib, now admitted with PNA, Influenza, subsequently developed respiratory distress and hypoxia and was transferred to ICU. EKG showed afib with RVR on 08/17/18. Remains in Sinus Tachycardia 1 documented episode of Afib with RVR days ago in setting of severe illness on coumadin as outpatient Sinus tachycardia likely driven by Fever and hypoxia Lasix PRN It is reasonable to rule out an ASD or PFO with a bubble study, but would favor waiting until she is less tachycardic to ensure a better result. Even if the bubble study is positive, she is not a candidate any type of closure procedure at this time. Continue BiPAP INR goal is 2 - 3, presently she is supratherapeutic Will follow with you
[2018-08-23] MEDS ORDERED: dilTIAZem HCL 50 MG/10 ML - 10 ML VIAL IVPUSH ONE (13:51)
[2018-08-23] MEDS ORDERED: dilTIAZem HCL 50 MG/10 ML - 10 ML VIAL ONE (14:02)
[2018-08-23] MEDS ORDERED: PT OWN MED DRAWER 7, Y5N ONE (15:53)
[2018-08-23] MEDS: METOPROLOL TARTRATE 25 MG TABLET (FP) PO SCH ×2 (15:57→21:35)
--- NOTE | 2018-08-23 17:14 | PN ---
Teaching Attending Note Name of Resident: Cynthia Richards ATTENDING PHYSICIAN STATEMENT I saw and evaluated the patient. I reviewed the resident's note and discussed the case with the resident. I agree with the resident's findings and plan as documented. SUBJECTIVE:Patient seen and examined On BIPAP Remains somewhat dyspneic and tachyneic Last Vital Signs Temp Pulse Resp BP Pulse Ox 98.6 F 93 H 20 112/69 97 08/23/18 06:00 08/23/18 16:00 08/23/18 16:00 08/23/18 16:00 08/23/18 16:20 Lungs - diminished breath sounds RSR No significant LE edema CBC, BMP 08/23/18 05:30 08/23/18 05:30 Current Medications Generic Name Dose Route Start Last Admin Trade Name Freq PRN Reason Stop Dose Admin Acetaminophen 650 mg 08/14/18 01:26 08/21/18 09:14 Tylenol - PO 650 mg Q4H PRN Administration PAIN OR FEVER Albuterol Sulfate 1 amp 08/14/18 01:26 08/21/18 23:49 Ventolin 0.083% Nebulizer Soln - NEB 1 amp Q6H PRN Administration SHORT OF BREATH/WHEEZING Chlorhexidine Gluconate 1 applic 08/20/18 22:00 08/22/18 21:09 Hibiclens For Decolonization - TP 1 applic HS [facility] Administration Dexamethasone 0.5 mg 08/22/18 10:00 08/23/18 10:03 Decadron Liquid - PO 0.5 mg DAILY [facility] Administration Enoxaparin Sodium 60 mg 08/23/18 22:00 Lovenox - SQ BID [facility] Gabapentin 250 mg 08/14/18 06:00 08/23/18 15:57 Neurontin Oral Liquid - PEG 5 ml TID [facility] Administration Guaifenesin 10 ml 08/21/18 22:50 Robitussin Dm - PO Q6H PRN COUGH Levetiracetam 500 mg 08/14/18 10:00 08/23/18 10:02 Keppra Oral Solution - GT 500 mg BID [facility] Administration Lidocaine 1 patch 08/21/18 12:00 08/23/18 10:03 Lidoderm Patch - TP 1 patch DAILY [facility] Administration Loperamide HCl 2 mg 08/21/18 10:00 08/21/18 09:14 Imodium Liquid - PEG 2 mg DAILY [facility] Administration Methylprednisolone Sodium Succinate 40 mg 08/22/18 11:45 08/23/18 10:03 Solu-Medrol - IVPUSH 40 mg Q8H-IV [facility] Administration Metoprolol Tartrate 25 mg 08/23/18 14:00 08/23/18 15:57 Lopressor - PO 25 mg BID [facility] Administration Miscellaneous 1 each 08/21/18 22:00 08/22/18 21:17 Lidoderm Patch Removal MC 1 each DAILY@2200 [facility] Administration Mupirocin 1 applic 08/20/18 22:00 08/23/18 11:06 Bactroban Ointment (For Decolonization) - NS 08/25/18 21:59 1 applic BID [facility] Administration Nitroglycerin 0.4 mg 08/17/18 21:59 08/20/18 13:56 Nitrostat - SL 0.4 mg Q5M PRN Administration FOR CHEST PAIN Ruxolitinib 5 mg 08/14/18 10:00 08/23/18 11:06 Phosphate [Jakafi] 5 GT 5 mg Mg BID [facility] Administration Oxycodone HCl 5 mg 08/21/18 11:47 08/22/18 20:27 Roxicodone - PO 5 mg Q6H PRN Administration PAIN LEVEL 6-10 Potassium Chloride 40 meq 08/14/18 10:00 08/23/18 10:02 Potassium Chloride Oral Liquid GT 40 meq DAILY [facility] Administration Ranitidine HCl 150 mg 08/14/18 10:00 08/23/18 10:02 Zantac Oral Solution - PEG 150 mg BID [facility] Administration Warfarin Sodium 2.5 mg 08/13/18 20:00 08/22/18 19:16 Coumadin - PO Not Given DAILY@1800 [facility] OBJECTIVE:Impression: Influenza Acute hypoxic respiratory failure S/P extubation Anemia Non Hodgkins Lymphoma Plan: Additional screening with protein studies /Fe++ studies. Cardiopulmonary monitoring . ASSESSMENT AND PLAN:
[2018-08-23] MEDS: WARFARIN NA 2.5 MG TABLET (FP) PO SCH (17:35)
[2018-08-23] MEDS ORDERED: ARTIFICIAL TEARS (POLYVINYL ALCOHOL) OPTH DROPS OU PRN (21:33)
[2018-08-23] MEDS: CHLORHEXIDINE GLUCONATE 4% CLEANSER FOR DECOLONIZATION TP SCH (21:34)
[2018-08-23] MEDS: LIDOCAINE PATCH REMOVAL MC SCH (21:35)
[2018-08-23] MEDS: ENOXAPARIN NA (PORCINE) 60 MG/0.6 ML DISP.SYRIN SQ SCH (22:42)
[2018-08-23] MEDS: oxyCODONE HCL 5 MG TABLET PO PRN (22:44)
[2018-08-24] MEDS: methylPREDNISolone NA SUCC 40 MG/1 ML VIAL IVPUSH SCH ×3 (02:15→17:15)
[2018-08-24] MEDS: GABAPENTIN 250 MG/5 ML ORAL SOLUTION, 470 ML BOTTLE PEG SCH ×3 (06:14→22:25)
[2018-08-24 06:17] LABS: BASO % 0.2 % (0-2.0); HEMOGLOBIN 8.5 GM/dL (10.7-15.3); LYMPH % 4.4 % (8-40); MCH 25.4 pg (25.7-33.7); MCHC 32.8 g/dl (32.0-36.0); MEAN CELL VOLUME 77.4 fl (80-96); MEAN PLT VOLUME 8.8 fl (7.5-11.1); MONO % 9.1 % (3.8-10.2); NEUT % 86.3 % (42.8-82.8); PLATELET COUNT 280 K/MM3 (134-434); RBC 3.36 M/mm3 (3.60-5.2); RDW 25.8 % (11.6-15.6); WHITE BLOOD COUNT 8.8 K/mm3 (4.0-10.0)
[2018-08-24 06:27] LABS: RETICULOCYTES 1.38 % (0.5-1.5)
[2018-08-24 06:33] LABS: INR 1.43 (0.83-1.09); PROTHROMBIN TIME (PATIENT) 16.9 SEC (9.7-13.0)
[2018-08-24 06:59] LABS: ALBUMIN 2.8 g/dl (3.4-5.0); ALK PHOS 259 U/L (45-117); ANION GAP 5 MMOL/L (8-16); BILIRUBIN,TOTAL 0.3 mg/dL (0.2-1); BLOOD UREA NITROGEN 25 mg/dL (7-18); CALCIUM 8.9 mg/dL (8.5-10.1); CHLORIDE 95 mmol/L (98-107); CO2 35 mmol/L (21-32); CREATININE 0.4 mg/dL (0.55-1.3); GLUCOSE,RANDOM 282 mg/dL (74-106); MAGNESIUM 2.1 mg/dL (1.8-2.4); PHOSPHOROUS 1.5 mg/dL (2.5-4.9); POTASSIUM 4.6 mmol/L (3.5-5.1); SGOT/AST 60 U/L (15-37); SGPT/ALT 55 U/L (13-61); SODIUM 135 mmol/L (136-145); TOT PROT 5.9 g/dl (6.4-8.2)
--- NOTE | 2018-08-24 07:42 | PN ---
Progress Note, Physician - Current Medication List Current Medications: Active Medications Acetaminophen (Tylenol -) 650 mg PO Q4H PRN PRN Reason: PAIN OR FEVER Last Admin: 08/21/18 09:14 Dose: 650 mg Albuterol Sulfate (Ventolin 0.083% Nebulizer Soln -) 1 amp NEB Q6H PRN PRN Reason: SHORT OF BREATH/WHEEZING Last Admin: 08/21/18 23:49 Dose: 1 amp Artificial Tears (Artificial Tears) 1 drop OU Q6H PRN PRN Reason: DRY EYES Last Admin: 08/23/18 22:20 Dose: 1 drop Chlorhexidine Gluconate (Hibiclens For Decolonization -) 1 applic TP HS [facility] Last Admin: 08/23/18 21:34 Dose: 1 applic Dexamethasone (Decadron Liquid -) 0.5 mg PO DAILY [facility] Last Admin: 08/23/18 10:03 Dose: 0.5 mg Enoxaparin Sodium (Lovenox -) 60 mg SQ BID [facility] Last Admin: 08/23/18 22:42 Dose: 60 mg Gabapentin (Neurontin Oral Liquid -) 250 mg PEG TID [facility] Last Admin: 08/24/18 06:14 Dose: 250 ml Guaifenesin (Robitussin Dm -) 10 ml PO Q6H PRN PRN Reason: COUGH Levetiracetam (Keppra Oral Solution -) 500 mg GT BID [facility] Last Admin: 08/23/18 21:34 Dose: 500 mg Lidocaine (Lidoderm Patch -) 1 patch TP DAILY [facility] Last Admin: 08/23/18 10:03 Dose: 1 patch Loperamide HCl (Imodium Liquid -) 2 mg PEG DAILY [facility] Last Admin: 08/21/18 09:14 Dose: 2 mg Methylprednisolone Sodium Succinate (Solu-Medrol -) 40 mg IVPUSH Q8H-IV [facility] Last Admin: 08/24/18 02:15 Dose: 40 mg Metoprolol Tartrate (Lopressor -) 25 mg PO BID [facility] Last Admin: 08/23/18 21:35 Dose: 25 mg Miscellaneous (Lidoderm Patch Removal) 1 each MC DAILY@2200 [facility] Last Admin: 08/23/18 21:35 Dose: 1 each Mupirocin (Bactroban Ointment (For Decolonization) -) 1 applic NS BID [facility] Stop: 08/25/18 21:59 Last Admin: 08/23/18 21:34 Dose: 1 applic Nitroglycerin (Nitrostat -) 0.4 mg SL Q5M PRN PRN Reason: FOR CHEST PAIN Last Admin: 08/20/18 13:56 Dose: 0.4 mg Ruxolitinib Phosphate [Jakafi] 5 Mg 5 mg GT BID [facility] Last Admin: 08/23/18 22:44 Dose: Not Given Oxycodone HCl (Roxicodone -) 5 mg PO Q6H PRN PRN Reason: PAIN LEVEL 6-10 Last Admin: 08/23/18 22:44 Dose: 5 mg Potassium Chloride (Potassium Chloride Oral Liquid) 40 meq GT DAILY [facility] Last Admin: 08/23/18 10:02 Dose: 40 meq Ranitidine HCl (Zantac Oral Solution -) 150 mg PEG BID [facility] Last Admin: 08/23/18 21:34 Dose: 150 mg Warfarin Sodium (Coumadin -) 2.5 mg PO DAILY@1800 [facility] Last Admin: 08/23/18 17:35 Dose: 2.5 mg - Objective Vital Signs: Vital Signs Temperature 97.8 F 08/24/18 06:00 Pulse Rate 76 08/24/18 06:00 Respiratory Rate 14 08/24/18 06:00 Blood Pressure 111/70 08/24/18 06:00 O2 Sat by Pulse Oximetry (%) 97 08/24/18 03:47 Cardiovascular: Yes: S1, S2 Respiratory: Yes: On BiPap Gastrointestinal: Yes: Normal Bowel Sounds, Soft Labs: CBC, BMP 08/24/18 05:30 08/24/18 05:30 INR, PTT INR 1.43 (0.83-1.09) H 08/24/18 05:30 Assessment/Plan - Problems (1) Acute hypoxemic respiratory failure Assessment/Plan: completed abx course on bipap repeat cxr shows better aeration Code(s): J96.01 - ACUTE RESPIRATORY FAILURE WITH HYPOXIA (2) Influenza A Assessment/Plan: tamiflu completed off droplet precautions Code(s): J10.1 - FLU DUE TO OTH IDENT INFLUENZA VIRUS W OTH RESP MANIFEST (3) Hypokalemia Assessment/Plan: resolved Code(s): E87.6 - HYPOKALEMIA (4) Anticoagulant long-term use Assessment/Plan: hx of cva inr-monitor Laboratory Tests 08/21/18 08/22/18 08/23/18 12:00 05:30 05:30 INR 3.53 H 3.37 H 1.76 H coumadin per inr--resume Code(s): Z79.01 - HUMAN RESOURCES COMPLIANCE MANAGER (CURRENT) USE OF ANTICOAGULANTS (5) Hodgkin lymphoma Assessment/Plan: heme on board on jakafi and dexa Code(s): C81.90 - HODGKIN LYMPHOMA, UNSPECIFIED, UNSPECIFIED SITE (6) Hypomagnesemia Assessment/Plan: iv magenusium Code(s): E83.42 - HYPOMAGNESEMIA (7) Hypophosphatemia Assessment/Plan: repleted Code(s): E83.39 - OTHER DISORDERS OF PHOSPHORUS METABOLISM
--- NOTE | 2018-08-24 09:20 | PN ---
Physical Exam: SUBJECTIVE: Patient seen and examined this AM. Attempted to transition to Ventimask yesterday however patient did not tolerate and resumed bilevel. Breathing continues to improve this am. No acute overnight events. Endorses chills. Denies fevers, chest pain, nausea, vomiting, diarrhea, constipation. OBJECTIVE: Vital Signs Period Temp Pulse Resp BP Sys/Nichols Pulse Ox Last 24 Hr 97.2 F-98.6 F 70-113 14-20 72-134/58-94 95-97 GENERAL: A&Ox3, NAD HEAD: NCAT EYES: PERRL, EOMI ENT: Dry mucous membranes NECK: Supple, No JVD LUNGS: On Bipap, Diminished breath sounds at the bases, Poor inspiratory effort , No wheezes HEART: RRR, S1, S2 without murmur CHEST: Port on the right upper chest BACK: Healing Stage 2 ulcer over the Buttock region, No Active drainage, no surrounding erythema ABDOMEN: Soft, nontender, nondistended, + bowel sounds, no guarding, PEG tube present in the Upper abdomen EXTREMITIES: No edema NEUROLOGICAL: Cranial nerves II through XII grossly intact. Normal speech SKIN: Warm, dry, Sclerodermic changes noted over extremities Laboratory Results - last 24 hr 08/22/18 08/23/18 08/24/18 12:30 05:30 05:30 WBC RBC Hgb Hct MCV MCH MCHC RDW Plt Count MPV Absolute Neuts (auto) Neutrophils % Neutrophils % (Manual) 99.0 H Band Neutrophils % 0.0 Lymphocytes % Lymphocytes % (Manual) 1.0 L D Monocytes % Monocytes % (Manual) 0 L D Eosinophils % Eosinophils % (Manual) 0.0 Basophils % Basophils % (Manual) 0.0 Myelocytes % (Man) 0 Promyelocytes % (Man) 0 Blast Cells % (Manual) 0 Nucleated RBC % Metamyelocytes 0 Hypochromia 0 Platelet Estimate Normal Polychromasia 1+ Poikilocytosis 1+ Anisocytosis 1+ Microcytosis 1+ Macrocytosis 0 Target Cells 1+ Schistocytes 1+ Retic Count PT with INR 16.90 H INR 1.43 H Sodium Potassium Chloride Carbon Dioxide Anion Gap BUN Creatinine Creat Clearance w eGFR Random Glucose Calcium Phosphorus Magnesium Total Bilirubin AST ALT Alkaline Phosphatase Total Protein Albumin Vitamin B12 Serum Folate TSH Free T4 GISELLE Screen Negative 08/24/18 08/24/18 08/24/18 05:30 05:30 05:30 WBC RBC Hgb Hct MCV MCH MCHC RDW Plt Count MPV Absolute Neuts (auto) Neutrophils % Neutrophils % (Manual) Band Neutrophils % Lymphocytes % Lymphocytes % (Manual) Monocytes % Monocytes % (Manual) Eosinophils % Eosinophils % (Manual) Basophils % Basophils % (Manual) Myelocytes % (Man) Promyelocytes % (Man) Blast Cells % (Manual) Nucleated RBC % Metamyelocytes Hypochromia Platelet Estimate Polychromasia Poikilocytosis Anisocytosis Microcytosis Macrocytosis Target Cells Schistocytes Retic Count Cancelled PT with INR INR Sodium 135 L Potassium 4.6 Chloride 95 L Carbon Dioxide 35 H Anion Gap 5 L BUN 25 H Creatinine 0.4 L Creat Clearance w eGFR > 60 Random Glucose 282 H Calcium 8.9 Phosphorus 1.5 L Magnesium 2.1 Total Bilirubin 0.3 AST 60 H ALT 55 Alkaline Phosphatase 259 H Total Protein 5.9 L Albumin 2.8 L Vitamin B12 Cancelled 1220 H Serum Folate Cancelled 8 TSH Cancelled 0.44 Free T4 1.02 GISELLE Screen 08/24/18 05:30 WBC 8.8 RBC 3.36 L Hgb 8.5 L Hct 26.0 L MCV 77.4 L MCH 25.4 L MCHC 32.8 RDW 25.8 H Plt Count 280 MPV 8.8 Absolute Neuts (auto) 7.6 Neutrophils % 86.3 H Neutrophils % (Manual) Band Neutrophils % Lymphocytes % 4.4 L D Lymphocytes % (Manual) Monocytes % 9.1 D Monocytes % (Manual) Eosinophils % 0.0 Eosinophils % (Manual) Basophils % 0.2 Basophils % (Manual) Myelocytes % (Man) Promyelocytes % (Man) Blast Cells % (Manual) Nucleated RBC % 1 H Metamyelocytes Hypochromia Platelet Estimate Polychromasia Poikilocytosis Anisocytosis Microcytosis Macrocytosis Target Cells Schistocytes Retic Count 1.38 PT with INR INR Sodium Potassium Chloride Carbon Dioxide Anion Gap BUN Creatinine Creat Clearance w eGFR Random Glucose Calcium Phosphorus Magnesium Total Bilirubin AST ALT Alkaline Phosphatase Total Protein Albumin Vitamin B12 Serum Folate TSH Free T4 GISELLE Screen Microbiology 08/21/18 17:40 Blood - Peripheral Venous Blood Culture - Preliminary NO GROWTH OBTAINED AFTER 48 HOURS, INCUBATION TO CONTINUE FOR 3 DAYS. 08/21/18 17:40 Blood - Peripheral Venous Blood Culture - Preliminary NO GROWTH OBTAINED AFTER 48 HOURS, INCUBATION TO CONTINUE FOR 3 DAYS. 08/22/18 17:00 Stool Clostridium difficile Antigen (LORIN) - Final 08/22/18 17:00 Stool Clostridium difficile Toxin Assay - Final 08/12/18 17:40 Blood - Peripheral Venous Blood Culture - Final NO GROWTH AFTER 5 DAYS INCUBATION 08/12/18 17:40 Blood - Peripheral Venous Blood Culture - Final NO GROWTH AFTER 5 DAYS INCUBATION 08/12/18 22:00 Urine - Urine Clean Catch Urine Culture - Final 08/12/18 22:00 Urine For Antigen Detection Legionella Antigen - Final Active Medications Acetaminophen (Tylenol -) 650 mg PO Q4H PRN PRN Reason: PAIN OR FEVER Last Admin: 08/21/18 09:14 Dose: 650 mg Albuterol Sulfate (Ventolin 0.083% Nebulizer Soln -) 1 amp NEB Q6H PRN PRN Reason: SHORT OF BREATH/WHEEZING Last Admin: 08/21/18 23:49 Dose: 1 amp Artificial Tears (Artificial Tears) 1 drop OU Q6H PRN PRN Reason: DRY EYES Last Admin: 08/23/18 22:20 Dose: 1 drop Chlorhexidine Gluconate (Hibiclens For Decolonization -) 1 applic TP HS [facility] Last Admin: 08/23/18 21:34 Dose: 1 applic Dexamethasone (Decadron Liquid -) 0.5 mg PO DAILY [facility] Last Admin: 08/23/18 10:03 Dose: 0.5 mg Enoxaparin Sodium (Lovenox -) 60 mg SQ BID [facility] Last Admin: 08/23/18 22:42 Dose: 60 mg Gabapentin (Neurontin Oral Liquid -) 250 mg PEG TID [facility] Last Admin: 08/24/18 06:14 Dose: 250 ml Guaifenesin (Robitussin Dm -) 10 ml PO Q6H PRN PRN Reason: COUGH Levetiracetam (Keppra Oral Solution -) 500 mg GT BID [facility] Last Admin: 08/23/18 21:34 Dose: 500 mg Lidocaine (Lidoderm Patch -) 1 patch TP DAILY [facility] Last Admin: 08/23/18 10:03 Dose: 1 patch Loperamide HCl (Imodium Liquid -) 2 mg PEG DAILY [facility] Last Admin: 08/21/18 09:14 Dose: 2 mg Methylprednisolone Sodium Succinate (Solu-Medrol -) 40 mg IVPUSH Q8H-IV [facility] Last Admin: 08/24/18 02:15 Dose: 40 mg Metoprolol Tartrate (Lopressor -) 25 mg PO BID [facility] Last Admin: 08/23/18 21:35 Dose: 25 mg Miscellaneous (Lidoderm Patch Removal) 1 each MC DAILY@2200 [facility] Last Admin: 08/23/18 21:35 Dose: 1 each Mupirocin (Bactroban Ointment (For Decolonization) -) 1 applic NS BID [facility] Stop: 08/25/18 21:59 Last Admin: 08/23/18 21:34 Dose: 1 applic Nitroglycerin (Nitrostat -) 0.4 mg SL Q5M PRN PRN Reason: FOR CHEST PAIN Last Admin: 08/20/18 13:56 Dose: 0.4 mg Ruxolitinib Phosphate [Jakafi] 5 Mg 5 mg GT BID [facility] Last Admin: 08/23/18 22:44 Dose: Not Given Oxycodone HCl (Roxicodone -) 5 mg PO Q6H PRN PRN Reason: PAIN LEVEL 6-10 Last Admin: 08/23/18 22:44 Dose: 5 mg Potassium Chloride (Potassium Chloride Oral Liquid) 40 meq GT DAILY [facility] Last Admin: 08/23/18 10:02 Dose: 40 meq Potassium Phos/Sodium Phos (Phos-Nak Packet -) 1 packet PO BID [facility] Ranitidine HCl (Zantac Oral Solution -) 150 mg PEG BID [facility] Last Admin: 08/23/18 21:34 Dose: 150 mg Warfarin Sodium (Coumadin -) 2.5 mg PO DAILY@1800 [facility] Last Admin: 08/23/18 17:35 Dose: 2.5 mg ASSESSMENT/PLAN: 37 y/o F with a PMHx of hodgkins lymphoma (currently on chemo, Dexamethasone, Ruxolitinib Phosphate), AFib (previously on Warfarin, currently held), who recently completed a course of Zosyn, Tamiflu for PNA/Influenza, will be monitored in ICU for Acute respiratory distress. #Neuro -Continue Levetiracetam -Aspiration precautions -Monitor for changes in mental status #Cardio AFib w/ RVR (on Warfarin) Tachycardia, Improved Supratherapeutic INR, Now subtherapeutic -Dr. Velasco consulted, Appreciate Rec's -Continue Nitroglycerin PRN -Increase Warfarin to 5mg today -Trend PT/INR -Tele monitoring -Vital signs Q4H -IV Furosemide PRN #Pulm Acute Respiratory Distress -Unclear etiology -Continue Albuterol Nebulizer,IV Solumedrol 40mg Q8h -Continue Bilevel; Will wean as tolerated -Supplemental O2 to maintain SpO2 > 90% -GISELLE negative -Anca pending #ID Sepsis due to Pneumonia, Influenza A Positive -Recently completed course of Zosyn, Tamiflu; Will monitor off ABx for now -Legionella Urine Antigen, Urine and blood cx negative -Dr. Goins Consulted, Appreciate rec's #Heme Microcytic Anemia Hx of hodgkins lymphoma (currently on chemo, and s/p BMT x2-2011, 2013 on Dexamethasone, Ruxolitinib Phosphate [Jakafi]) -Continue Dexamethasone, Gabapentin, Ruxolitinib -Dr. Morrow Consulted, appreciate Rec's -Palliative care consult given guarded prognosis #GI Chronic diarrhea -Continue Ranitidine -C. Diff Ag negative -Hold home dose Loperamide #Renal -Continue to monitor I&Os, Urine output #Endo Elevated BG in the setting of Dexamethasone use -Continue to monitor #FEN -No standing fluids -Replete Lytes PRN -Tube feed jevity 1.5 #PPx -DVT: SCDs, Warfarin -GI: Ranitidine Code status: Full Code Dispo: Continue to monitor in ICU Visit type - Emergency Visit Emergency Visit: Yes ED Registration Date: 08/12/18 Care time: The patient presented to the Emergency Department on the above date and was hospitalized for further evaluation of their emergent condition. - New Patient This patient is new to me today: No - Critical Care Critical Care patient: Yes Total Critical Care Time (in minutes): 36 Critical Care Statement: The care of this patient involved high complexity decision making to prevent further life threatening deterioration of the patient 's condition and/or to evaluate & treat vital organ system(s) failure or risk of failure.
[2018-08-24] MEDS: ENOXAPARIN NA (PORCINE) 60 MG/0.6 ML DISP.SYRIN SQ SCH ×2 (10:12→22:26)
[2018-08-24] MEDS: POTASSIUM CHLORIDE ORAL LIQUID 20 MEQ/15 ML GT SCH (10:12)
[2018-08-24] MEDS: LIDOCAINE 5% TOPICAL PATCH TP SCH (10:13)
[2018-08-24] MEDS: levETIRAcetam 500 MG/5 ML ORAL SOLUTION (UNIT-DOSE CUPS) GT SCH ×2 (10:14→22:26)
[2018-08-24] MEDS: DEXAMETHASONE LIQUID 0.5 MG/5 ML 240 ML BULK BOTTLE PO SCH (10:14)
[2018-08-24] MEDS: RANITIDINE HCL 150 MG/10 ML UNIT-DOSE PEG SCH ×2 (10:14→22:25)
[2018-08-24] MEDS: oxyCODONE HCL 5 MG TABLET PO PRN ×2 (10:15→17:18)
[2018-08-24] MEDS: METOPROLOL TARTRATE 25 MG TABLET (FP) PO SCH ×2 (10:16→22:26)
[2018-08-24] MEDS: MUPIROCIN 2% TOPICAL OINTMENT FOR DECOLONIZATION NS SCH ×2 (10:21→22:26)
[2018-08-24] MEDS: NAPH,MB-DB/K PH,MBDB POWDER PACKET PO SCH ×2 (10:23→22:25)
[2018-08-24] MEDS: RUXOLITINIB PHOSPHATE 5 MG GT SCH ×2 (10:40→22:26)
--- NOTE | 2018-08-24 12:20 | PN ---
Teaching Attending Note Name of Resident: Neisha Charles ATTENDING PHYSICIAN STATEMENT I saw and evaluated the patient. I reviewed the resident's note and discussed the case with the resident. I agree with the resident's findings and plan as documented. SUBJECTIVE: Pt seen and examined in the ICU. Remains on BiPAP with 90% FiO2. Episodes of rapid atrial fibrillation overnight. OBJECTIVE: Vital Signs Period Temp Pulse Resp BP Sys/Nichols Pulse Ox Last 24 Hr 97.2 F-98.6 F 70-107 14-22 72-126/58-81 96-100 Intake & Output 08/21/18 08/22/18 08/23/18 08/24/18 23:59 23:59 23:59 23:59 Intake Total 1780 2500 1056 Balance 1780 2500 1056 Weight 60.4 kg 61 kg 61.734 kg 62.596 kg Gen: shallow breaths on BiPAP Heart: tachycardic, irregular Lung: distant breath sounds Abd: soft, nontender Ext: trace edema CBC, BMP 08/24/18 05:30 08/24/18 05:30 Active Medications Acetaminophen (Tylenol -) 650 mg PO Q4H PRN PRN Reason: PAIN OR FEVER Last Admin: 08/21/18 09:14 Dose: 650 mg Albuterol Sulfate (Ventolin 0.083% Nebulizer Soln -) 1 amp NEB Q6H PRN PRN Reason: SHORT OF BREATH/WHEEZING Last Admin: 08/21/18 23:49 Dose: 1 amp Artificial Tears (Artificial Tears) 1 drop OU Q6H PRN PRN Reason: DRY EYES Last Admin: 08/23/18 22:20 Dose: 1 drop Chlorhexidine Gluconate (Hibiclens For Decolonization -) 1 applic TP HS [facility] Last Admin: 08/23/18 21:34 Dose: 1 applic Dexamethasone (Decadron Liquid -) 0.5 mg PO DAILY [facility] Last Admin: 08/24/18 10:14 Dose: 0.5 mg Enoxaparin Sodium (Lovenox -) 60 mg SQ BID [facility] Last Admin: 08/24/18 10:12 Dose: 60 mg Gabapentin (Neurontin Oral Liquid -) 250 mg PEG TID [facility] Last Admin: 08/24/18 06:14 Dose: 250 ml Guaifenesin (Robitussin Dm -) 10 ml PO Q6H PRN PRN Reason: COUGH Levetiracetam (Keppra Oral Solution -) 500 mg GT BID [facility] Last Admin: 08/24/18 10:14 Dose: 500 mg Lidocaine (Lidoderm Patch -) 1 patch TP DAILY [facility] Last Admin: 08/24/18 10:13 Dose: 1 patch Loperamide HCl (Imodium Liquid -) 2 mg PEG DAILY [facility] Last Admin: 08/21/18 09:14 Dose: 2 mg Methylprednisolone Sodium Succinate (Solu-Medrol -) 40 mg IVPUSH Q8H-IV [facility] Last Admin: 08/24/18 10:14 Dose: 40 mg Metoprolol Tartrate (Lopressor -) 25 mg PO BID [facility] Last Admin: 08/24/18 10:16 Dose: 25 mg Miscellaneous (Lidoderm Patch Removal) 1 each MC DAILY@2200 [facility] Last Admin: 08/23/18 21:35 Dose: 1 each Mupirocin (Bactroban Ointment (For Decolonization) -) 1 applic NS BID [facility] Stop: 08/25/18 21:59 Last Admin: 08/24/18 10:21 Dose: 1 applic Nitroglycerin (Nitrostat -) 0.4 mg SL Q5M PRN PRN Reason: FOR CHEST PAIN Last Admin: 08/20/18 13:56 Dose: 0.4 mg Ruxolitinib Phosphate [Jakafi] 5 Mg 5 mg GT BID [facility] Last Admin: 08/23/18 22:44 Dose: Not Given Potassium Chloride (Potassium Chloride Oral Liquid) 40 meq GT DAILY [facility] Last Admin: 08/24/18 10:12 Dose: 40 meq Potassium Phos/Sodium Phos (Phos-Nak Packet -) 1 packet PO BID [facility] Last Admin: 08/24/18 10:23 Dose: 1 packet Ranitidine HCl (Zantac Oral Solution -) 150 mg PEG BID [facility] Last Admin: 08/24/18 10:14 Dose: 150 mg Warfarin Sodium (Coumadin -) 2.5 mg PO DAILY@1800 [facility] Last Admin: 08/23/18 17:35 Dose: 2.5 mg ASSESSMENT AND PLAN: Acute Hypoxic Respiratory Failure Pneumonia Atelectasis Influenza A Hodgkins Lymphoma - completed antibiotics - continue short course of steroids - inhaled bronchodilators - O2 to keep SpO2 >90% - BiPAP to assist in work of breathing - aspiration precautions - inhaled bronchodilators - on anticoagulation - continue ICU monitoring critical care time spent in reviewing chart, evaluating patient and formulating plan 35 min
[2018-08-24] MEDS: ALBUTEROL SO4 0.083% IH SOL 2.5 MG/3 ML VIAL.NEB. NEB PRN (16:02)
--- NOTE | 2018-08-24 16:25 | PN ---
Progress Note, Physician Chief Complaint: Sinus tachycardia SOB History of Present Illness: This is a 37 year old woman with pmh Hodgkins lymphoma on chemo s/p BMT x 2 2011 and 2013, CVA 04/2018 treated at [facility] and pt states she was found to have blood clots in her heart therefore she has been on Warfarin but she is not aware of a diagnosis of Afib, now admitted with PNA, Influenza, subsequently developed respiratory distress and hypoxia and was transferred to ICU. EKG showed afib with RVR on 08/17/18. Pt was seen and examined in the ICU, on bipap in nad. states she is feeling much better since being transferred to the ICU. 08/23/18 remains on BIPAP - Current Medication List Current Medications: Active Medications Acetaminophen (Tylenol -) 650 mg PO Q4H PRN PRN Reason: PAIN OR FEVER Last Admin: 08/21/18 09:14 Dose: 650 mg Albuterol Sulfate (Ventolin 0.083% Nebulizer Soln -) 1 amp NEB Q6H PRN PRN Reason: SHORT OF BREATH/WHEEZING Last Admin: 08/24/18 16:02 Dose: 1 amp Artificial Tears (Artificial Tears) 1 drop OU Q6H PRN PRN Reason: DRY EYES Last Admin: 08/23/18 22:20 Dose: 1 drop Chlorhexidine Gluconate (Hibiclens For Decolonization -) 1 applic TP HS [facility] Last Admin: 08/23/18 21:34 Dose: 1 applic Dexamethasone (Decadron Liquid -) 0.5 mg PO DAILY [facility] Last Admin: 08/24/18 10:14 Dose: 0.5 mg Enoxaparin Sodium (Lovenox -) 60 mg SQ BID [facility] Last Admin: 08/24/18 10:12 Dose: 60 mg Gabapentin (Neurontin Oral Liquid -) 250 mg PEG TID [facility] Last Admin: 08/24/18 14:30 Dose: 250 ml Guaifenesin (Robitussin Dm -) 10 ml PO Q6H PRN PRN Reason: COUGH Levetiracetam (Keppra Oral Solution -) 500 mg GT BID [facility] Last Admin: 08/24/18 10:14 Dose: 500 mg Lidocaine (Lidoderm Patch -) 1 patch TP DAILY [facility] Last Admin: 08/24/18 10:13 Dose: 1 patch Loperamide HCl (Imodium Liquid -) 2 mg PEG DAILY [facility] Last Admin: 08/21/18 09:14 Dose: 2 mg Methylprednisolone Sodium Succinate (Solu-Medrol -) 40 mg IVPUSH Q8H-IV [facility] Last Admin: 08/24/18 10:14 Dose: 40 mg Metoprolol Tartrate (Lopressor -) 25 mg PO BID [facility] Last Admin: 08/24/18 10:16 Dose: 25 mg Miscellaneous (Lidoderm Patch Removal) 1 each MC DAILY@2200 [facility] Last Admin: 08/23/18 21:35 Dose: 1 each Mupirocin (Bactroban Ointment (For Decolonization) -) 1 applic NS BID [facility] Stop: 08/25/18 21:59 Last Admin: 08/24/18 10:21 Dose: 1 applic Nitroglycerin (Nitrostat -) 0.4 mg SL Q5M PRN PRN Reason: FOR CHEST PAIN Last Admin: 08/20/18 13:56 Dose: 0.4 mg Ruxolitinib Phosphate [Jakafi] 5 Mg 5 mg GT BID [facility] Last Admin: 08/24/18 10:40 Dose: Not Given Potassium Chloride (Potassium Chloride Oral Liquid) 40 meq GT DAILY [facility] Last Admin: 08/24/18 10:12 Dose: 40 meq Potassium Phos/Sodium Phos (Phos-Nak Packet -) 1 packet PO BID [facility] Last Admin: 08/24/18 10:23 Dose: 1 packet Ranitidine HCl (Zantac Oral Solution -) 150 mg PEG BID [facility] Last Admin: 08/24/18 10:14 Dose: 150 mg Warfarin Sodium (Coumadin -) 5 mg PO DAILY@1800 [facility] - Objective Vital Signs: Vital Signs Temperature 98.3 F 08/24/18 10:00 Pulse Rate 95 H 08/24/18 10:00 Respiratory Rate 22 H 08/24/18 10:00 Blood Pressure 108/81 08/24/18 10:00 O2 Sat by Pulse Oximetry (%) 97 08/24/18 16:01 Constitutional: Yes: No Distress HENT: Yes: Other (BiPAP) Neck: Yes: WNL Cardiovascular: Yes: Regular Rate and Rhythm Respiratory: Yes: CTA Bilaterally Gastrointestinal: Yes: Soft Extremities: Yes: WNL Edema: No Neurological: Yes: Alert, Oriented Labs: CBC, BMP 08/24/18 05:30 08/24/18 05:30 INR, PTT INR 1.43 (0.83-1.09) H 08/24/18 05:30 Assessment/Plan 37 year old woman with pmh Hodgkins lymphoma on chemo s/p BMT x 2 2011 and 2013 , CVA 04/2018 treated at [facility] and pt states she was found to have blood clots in her heart therefore she has been on Warfarin but she is not aware of a diagnosis of Afib, now admitted with PNA, Influenza, subsequently developed respiratory distress and hypoxia and was transferred to ICU. EKG showed afib with RVR on 08/17/18. Now in NSR Earlier RAFIB noted, remains on coumadin Sinus tachycardia likely driven by Fever and hypoxia Lasix PRN It is reasonable to rule out an ASD or PFO with a bubble study, but would favor waiting until she is less tachycardic to ensure a better result. Even if the bubble study is positive, she is not a candidate any type of closure procedure at this time. Continue BiPAP INR goal is 2 - 3 Call us PRN
--- NOTE | 2018-08-24 16:26 | PN ---
Physical Exam: SUBJECTIVE: Patient seen and examined OBJECTIVE: Vital Signs Period Temp Pulse Resp BP Sys/Nichols Pulse Ox Last 24 Hr 97.2 F-98.6 F 70-95 14-22 72-126/58-81 93-100 GENERAL: The patient is awake, alert, and fully oriented, in no acute distress. HEAD: Normal with no signs of trauma. EYES: PERRL, extraocular movements intact, sclera anicteric, conjunctiva clear. No ptosis. ENT: Ears normal, nares patent, oropharynx clear without exudates, moist mucous membranes. NECK: Trachea midline, full range of motion, supple. LUNGS: Breath sounds equal, clear to auscultation bilaterally, no wheezes, no crackles, no accessory muscle use. HEART: Regular rate and rhythm, S1, S2 without murmur, rub or gallop. ABDOMEN: Soft, nontender, nondistended, normoactive bowel sounds, no guarding, no rebound, no hepatosplenomegaly, no masses. EXTREMITIES: 2+ pulses, warm, well-perfused, no edema. NEUROLOGICAL: Cranial nerves II through XII grossly intact. Normal speech, gait not observed. PSYCH: Normal mood, normal affect. SKIN: Warm, dry, normal turgor, no rashes or lesions noted Laboratory Results - last 24 hr 08/22/18 08/24/18 08/24/18 12:30 05:30 05:30 WBC RBC Hgb Hct MCV MCH MCHC RDW Plt Count MPV Absolute Neuts (auto) Neutrophils % Lymphocytes % Monocytes % Eosinophils % Basophils % Nucleated RBC % Retic Count Cancelled PT with INR 16.90 H INR 1.43 H Sodium Potassium Chloride Carbon Dioxide Anion Gap BUN Creatinine Creat Clearance w eGFR Random Glucose Calcium Phosphorus Magnesium Total Bilirubin AST ALT Alkaline Phosphatase Total Protein Albumin Vitamin B12 Serum Folate TSH Free T4 GISELLE Screen Negative 08/24/18 08/24/18 08/24/18 05:30 05:30 05:30 WBC 8.8 RBC 3.36 L Hgb 8.5 L Hct 26.0 L MCV 77.4 L MCH 25.4 L MCHC 32.8 RDW 25.8 H Plt Count 280 MPV 8.8 Absolute Neuts (auto) 7.6 Neutrophils % 86.3 H Lymphocytes % 4.4 L D Monocytes % 9.1 D Eosinophils % 0.0 Basophils % 0.2 Nucleated RBC % 1 H Retic Count 1.38 PT with INR INR Sodium 135 L Potassium 4.6 Chloride 95 L Carbon Dioxide 35 H Anion Gap 5 L BUN 25 H Creatinine 0.4 L Creat Clearance w eGFR > 60 Random Glucose 282 H Calcium 8.9 Phosphorus 1.5 L Magnesium 2.1 Total Bilirubin 0.3 AST 60 H ALT 55 Alkaline Phosphatase 259 H Total Protein 5.9 L Albumin 2.8 L Vitamin B12 Cancelled 1220 H Serum Folate Cancelled 8 TSH Cancelled 0.44 Free T4 1.02 GISELLE Screen Active Medications Generic Name Dose Route Start Last Admin Trade Name Freq PRN Reason Stop Dose Admin Acetaminophen 650 mg 08/14/18 01:26 08/21/18 09:14 Tylenol - PO 650 mg Q4H PRN Administration PAIN OR FEVER Albuterol Sulfate 1 amp 08/14/18 01:26 08/24/18 16:02 Ventolin 0.083% Nebulizer Soln - NEB 1 amp Q6H PRN Administration SHORT OF BREATH/WHEEZING Artificial Tears 1 drop 08/23/18 21:33 08/23/18 22:20 Artificial Tears OU 1 drop Q6H PRN Administration DRY EYES Chlorhexidine Gluconate 1 applic 08/20/18 22:00 08/23/18 21:34 Hibiclens For Decolonization - TP 1 applic HS LANDEN Administration Dexamethasone 0.5 mg 08/22/18 10:00 08/24/18 10:14 Decadron Liquid - PO 0.5 mg DAILY LANDEN Administration Enoxaparin Sodium 60 mg 08/23/18 22:00 08/24/18 10:12 Lovenox - SQ 60 mg BID LANDEN Administration Gabapentin 250 mg 08/14/18 06:00 08/24/18 14:30 Neurontin Oral Liquid - PEG 250 ml TID LANDEN Administration Guaifenesin 10 ml 08/21/18 22:50 Robitussin Dm - PO Q6H PRN COUGH Levetiracetam 500 mg 08/14/18 10:00 08/24/18 10:14 Keppra Oral Solution - GT 500 mg BID LANDEN Administration Lidocaine 1 patch 08/21/18 12:00 08/24/18 10:13 Lidoderm Patch - TP 1 patch DAILY [facility] Administration Loperamide HCl 2 mg 08/21/18 10:00 08/21/18 09:14 Imodium Liquid - PEG 2 mg DAILY [facility]EN Administration Methylprednisolone Sodium Succinate 40 mg 08/22/18 11:45 08/24/18 10:14 Solu-Medrol - IVPUSH 40 mg Q8H-IV LANDEN Administration Metoprolol Tartrate 25 mg 08/23/18 14:00 08/24/18 10:16 Lopressor - PO 25 mg BID LANDEN Administration Miscellaneous 1 each 08/21/18 22:00 08/23/18 21:35 Lidoderm Patch Removal MC 1 each DAILY@2200 LANDEN Administration Mupirocin 1 applic 08/20/18 22:00 08/24/18 10:21 Bactroban Ointment (For Decolonization) - NS 08/25/18 21:59 1 applic BID [facility] Administration Nitroglycerin 0.4 mg 08/17/18 21:59 08/20/18 13:56 Nitrostat - SL 0.4 mg Q5M PRN Administration FOR CHEST PAIN Ruxolitinib 5 mg 08/14/18 10:00 08/24/18 10:40 Phosphate [Jakafi] 5 GT Not Given Mg BID [facility] Potassium Chloride 40 meq 08/14/18 10:00 08/24/18 10:12 Potassium Chloride Oral Liquid GT 40 meq DAILY [facility] Administration Potassium Phos/Sodium Phos 1 packet 08/24/18 10:00 08/24/18 10:23 Phos-Nak Packet - PO 1 packet BID [facility] Administration Ranitidine HCl 150 mg 08/14/18 10:00 08/24/18 10:14 Zantac Oral Solution - PEG 150 mg BID [facility] Administration Warfarin Sodium 5 mg 08/24/18 12:26 Coumadin - PO DAILY@1800 [facility] ASSESSMENT/PLAN: This is a 37 yo F, SNF resident, with hx CVA, on warfarin, Hodgkin lymphopma s/ p autologous transplant (failed) and allogeneic transplant in 2014, followed at [facility] (Dr. 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 On broad spectrum Abx and Tamiflu. Acute hypoxic respiratory failure 2/2 PNA NHL GVHD Influnenza + -rate control -off antibiotics -on BIPAP; -INR supra' now subtherapeutic; increase coumadin -dropping H/H - Iron studies;pending -serum electrophoreis pending - retic count, FOBT; negative -continue both Jakafi and dexamethasone (to prevent adrenal insufficiency as this is a machine long goods helper med). Visit type - Emergency Visit Emergency Visit: Yes ED Registration Date: 08/12/18 Care time: The patient presented to the Emergency Department on the above date and was hospitalized for further evaluation of their emergent condition. - New Patient This patient is new to me today: No - Critical Care Critical Care patient: Yes Total Critical Care Time (in minutes): 40 Critical Care Statement: The care of this patient involved high complexity decision making to prevent further life threatening deterioration of the patient 's condition and/or to evaluate & treat vital organ system(s) failure or risk of failure.
[2018-08-24 17:14] LABS: ATYPICAL pANCA <1:20 titer (Neg:<1:20); C-ANCA <1:20 titer (Neg:<1:20); P-ANCA <1:20 titer (Neg:<1:20)
[2018-08-24] MEDS: WARFARIN NA 5 MG TABLET (UD) PO SCH (17:15)
[2018-08-24] MEDS: LIDOCAINE PATCH REMOVAL MC SCH (22:26)
[2018-08-24] MEDS: CHLORHEXIDINE GLUCONATE 4% CLEANSER FOR DECOLONIZATION TP SCH (22:26)
[2018-08-25] MEDS: methylPREDNISolone NA SUCC 40 MG/1 ML VIAL IVPUSH SCH ×2 (02:27→11:08)
[2018-08-25] MEDS: GABAPENTIN 250 MG/5 ML ORAL SOLUTION, 470 ML BOTTLE PEG SCH ×3 (05:55→21:13)
[2018-08-25] MEDS: ALBUTEROL SO4 0.083% IH SOL 2.5 MG/3 ML VIAL.NEB. NEB PRN ×2 (06:05→08:39)
[2018-08-25 06:37] LABS: BASO % 0.2 % (0-2.0); HEMATOCRIT 27.5 % (32.4-45.2); HEMOGLOBIN 8.9 GM/dL (10.7-15.3); LYMPH % 1.4 % (8-40); MCH 25.3 pg (25.7-33.7); MCHC 32.3 g/dl (32.0-36.0); MEAN CELL VOLUME 78.4 fl (80-96); MEAN PLT VOLUME 8.6 fl (7.5-11.1); MONO % 4.6 % (3.8-10.2); NEUT % 93.8 % (42.8-82.8); PLATELET COUNT 316 K/MM3 (134-434); RBC 3.51 M/mm3 (3.60-5.2); RDW 25.7 % (11.6-15.6); WHITE BLOOD COUNT 12.4 K/mm3 (4.0-10.0)
[2018-08-25] MEDS: oxyCODONE HCL 5 MG TABLET PO PRN (06:54)
[2018-08-25 07:23] LABS: ALBUMIN 2.9 g/dl (3.4-5.0); ALK PHOS 317 U/L (45-117); ANION GAP 3 MMOL/L (8-16); BILIRUBIN,TOTAL 0.3 mg/dL (0.2-1); BLOOD UREA NITROGEN 27 mg/dL (7-18); CALCIUM 8.9 mg/dL (8.5-10.1); CHLORIDE 96 mmol/L (98-107); CO2 38 mmol/L (21-32); CREATININE 0.3 mg/dL (0.55-1.3); MAGNESIUM 1.9 mg/dL (1.8-2.4); PHOSPHOROUS 2.1 mg/dL (2.5-4.9); POTASSIUM 4.8 mmol/L (3.5-5.1); SGOT/AST 43 U/L (15-37); SGPT/ALT 85 U/L (13-61); SODIUM 137 mmol/L (136-145); TOT PROT 6.1 g/dl (6.4-8.2)
[2018-08-25 08:08] LABS: SERUM IRON SATURATION 25 % (15-55); TOTAL IRON BINDING CAPACITY 282 ug/dL (250-450); UIBC 212 ug/dL (131-425)
--- NOTE | 2018-08-25 08:08 | PN ---
Physical Exam: SUBJECTIVE: Patient seen and examined this AM. Tolerated bilevel overnight. Breathing continues to improve this am. No acute overnight events. Endorses chills. Denies fevers, chest pain, nausea, vomiting, diarrhea, constipation. OBJECTIVE: Vital Signs Period Temp Pulse Resp BP Sys/Nichols Pulse Ox Last 24 Hr 97.2 F-98.3 F 65-130 14-35 108-144/81-97 93-100 GENERAL: A&Ox3, NAD HEAD: NCAT EYES: PERRL, EOMI ENT: Dry mucous membranes NECK: Supple, No JVD LUNGS: On Bipap, Diminished breath sounds at the bases, Poor inspiratory effort , No wheezes HEART: RRR, S1, S2 without murmur CHEST: Port on the right upper chest BACK: Healing Stage 2 ulcer over the Buttock region, No Active drainage, no surrounding erythema ABDOMEN: Soft, nontender, nondistended, + bowel sounds, no guarding, PEG tube present in the Upper abdomen EXTREMITIES: No edema NEUROLOGICAL: Cranial nerves II through XII grossly intact. Normal speech SKIN: Warm, dry, Sclerodermic changes noted over extremities Laboratory Results - last 24 hr 08/22/18 08/24/18 08/25/18 12:30 18:20 05:30 Sodium 137 Potassium 4.8 Chloride 96 L Carbon Dioxide 38 H Anion Gap 3 L BUN 27 H Creatinine 0.3 L Creat Clearance w eGFR > 60 Calcium 8.9 Phosphorus 2.1 L Magnesium 1.9 Total Bilirubin 0.3 AST 43 H ALT 85 H Alkaline Phosphatase 317 H Total Protein 6.1 L Albumin 2.9 L Stool Occult Blood Negative c-ANCA <1:20 Proteinase 3 (PR3) <3.5 p-ANCA <1:20 Atypical p-ANCA <1:20 Myeloperoxidase Ab <9.0 Microbiology 08/21/18 17:40 Blood - Peripheral Venous Blood Culture - Preliminary NO GROWTH OBTAINED AFTER 72 HOURS, INCUBATION TO CONTINUE FOR 2 DAYS. 08/21/18 17:40 Blood - Peripheral Venous Blood Culture - Preliminary NO GROWTH OBTAINED AFTER 72 HOURS, INCUBATION TO CONTINUE FOR 2 DAYS. 08/22/18 17:00 Stool Clostridium difficile Antigen (LORIN) - Final 08/22/18 17:00 Stool Clostridium difficile Toxin Assay - Final 08/12/18 17:40 Blood - Peripheral Venous Blood Culture - Final NO GROWTH AFTER 5 DAYS INCUBATION 08/12/18 17:40 Blood - Peripheral Venous Blood Culture - Final NO GROWTH AFTER 5 DAYS INCUBATION 08/12/18 22:00 Urine - Urine Clean Catch Urine Culture - Final 08/12/18 22:00 Urine For Antigen Detection Legionella Antigen - Final Active Medications Acetaminophen (Tylenol -) 650 mg PO Q4H PRN PRN Reason: PAIN OR FEVER Last Admin: 08/21/18 09:14 Dose: 650 mg Albuterol Sulfate (Ventolin 0.083% Nebulizer Soln -) 1 amp NEB Q6H PRN PRN Reason: SHORT OF BREATH/WHEEZING Last Admin: 08/25/18 06:05 Dose: 1 amp Artificial Tears (Artificial Tears) 1 drop OU Q6H PRN PRN Reason: DRY EYES Last Admin: 08/23/18 22:20 Dose: 1 drop Chlorhexidine Gluconate (Hibiclens For Decolonization -) 1 applic TP HS [facility] Last Admin: 08/24/18 22:26 Dose: 1 applic Dexamethasone (Decadron Liquid -) 0.5 mg PO DAILY [facility] Last Admin: 08/24/18 10:14 Dose: 0.5 mg Enoxaparin Sodium (Lovenox -) 60 mg SQ BID [facility] Last Admin: 08/24/18 22:26 Dose: 60 mg Gabapentin (Neurontin Oral Liquid -) 250 mg PEG TID [facility] Last Admin: 08/25/18 05:55 Dose: 250 mg Guaifenesin (Robitussin Dm -) 10 ml PO Q6H PRN PRN Reason: COUGH Levetiracetam (Keppra Oral Solution -) 500 mg GT BID [facility] Last Admin: 08/24/18 22:26 Dose: 500 mg Lidocaine (Lidoderm Patch -) 1 patch TP DAILY [facility] Last Admin: 08/24/18 10:13 Dose: 1 patch Loperamide HCl (Imodium Liquid -) 2 mg PEG DAILY [facility] Last Admin: 08/21/18 09:14 Dose: 2 mg Methylprednisolone Sodium Succinate (Solu-Medrol -) 40 mg IVPUSH Q8H-IV [facility] Last Admin: 08/25/18 02:27 Dose: 40 mg Metoprolol Tartrate (Lopressor -) 25 mg PO BID [facility] Last Admin: 08/24/18 22:26 Dose: 25 mg Miscellaneous (Lidoderm Patch Removal) 1 each MC DAILY@2200 [facility] Last Admin: 08/24/18 22:26 Dose: 1 each Mupirocin (Bactroban Ointment (For Decolonization) -) 1 applic NS BID [facility] Stop: 08/25/18 21:59 Last Admin: 08/24/18 22:26 Dose: 1 applic Nitroglycerin (Nitrostat -) 0.4 mg SL Q5M PRN PRN Reason: FOR CHEST PAIN Last Admin: 08/20/18 13:56 Dose: 0.4 mg Ruxolitinib Phosphate [Jakafi] 5 Mg 5 mg GT BID [facility] Last Admin: 08/24/18 22:26 Dose: Not Given Oxycodone HCl (Roxicodone -) 5 mg PO Q6H PRN PRN Reason: PAIN LEVEL 1-5 Last Admin: 08/25/18 06:54 Dose: 5 mg Potassium Chloride (Potassium Chloride Oral Liquid) 40 meq GT DAILY [facility] Last Admin: 08/24/18 10:12 Dose: 40 meq Potassium Phos/Sodium Phos (Phos-Nak Packet -) 1 packet PO BID [facility] Last Admin: 08/24/18 22:25 Dose: 1 packet Ranitidine HCl (Zantac Oral Solution -) 150 mg PEG BID [facility] Last Admin: 08/24/18 22:25 Dose: 150 mg Warfarin Sodium (Coumadin -) 5 mg PO DAILY@1800 [facility] Last Admin: 08/24/18 17:15 Dose: 5 mg ASSESSMENT/PLAN: 37 y/o F with a PMHx of hodgkins lymphoma (currently on chemo, Dexamethasone, Ruxolitinib Phosphate), AFib (previously on Warfarin, currently held), who recently completed a course of Zosyn, Tamiflu for PNA/Influenza, will be monitored in ICU for Acute respiratory distress. #Neuro -Continue Levetiracetam -Aspiration precautions -Monitor for changes in mental status #Cardio AFib w/ RVR (on Warfarin) Tachycardia, Improved Supratherapeutic INR, Now subtherapeutic -Dr. Velasco consulted, Appreciate Rec's -Continue Nitroglycerin, IV Furosemide PRN -Continue Warfarin 5mg -Trend PT/INR -Tele monitoring -Vital signs Q4H -Daily CXR #Pulm Acute Respiratory Distress -Unclear etiology -Continue Albuterol Nebulizer -D/C Solumedrol -Continue Bilevel; Will wean as tolerated -Supplemental O2 to maintain SpO2 > 90% -GISELLE negative -Anca pending #ID Sepsis due to Pneumonia, Influenza A Positive -Recently completed course of Zosyn, Tamiflu; Will monitor off ABx for now -Legionella Urine Antigen, Urine and blood cx negative -Dr. Goins Consulted, Appreciate rec's #Heme Microcytic Anemia Hx of hodgkins lymphoma (currently on chemo, and s/p BMT x2-2011, 2013 on Dexamethasone, Ruxolitinib Phosphate [Jakafi]) -Continue Dexamethasone, Gabapentin, Ruxolitinib -Dr. Morrow Consulted, appreciate Rec's -Palliative care consult given guarded prognosis #GI Chronic diarrhea -Continue Ranitidine -C. Diff Ag negative -Hold home dose Loperamide #Renal -Continue to monitor I&Os, Urine output #Endo Elevated BG in the setting of Dexamethasone use -ISS BGMs ACHS -Continue to monitor #FEN -No standing fluids -Replete Lytes PRN -Tube feed jevity 1.5 #PPx -DVT: SCDs, Warfarin -GI: Ranitidine Code status: Full Code Dispo: Tele monitoring for pulse oximetry monitoring Visit type - Emergency Visit Emergency Visit: Yes ED Registration Date: 08/12/18 Care time: The patient presented to the Emergency Department on the above date and was hospitalized for further evaluation of their emergent condition. - New Patient This patient is new to me today: No - Critical Care Critical Care patient: Yes Total Critical Care Time (in minutes): 36 Critical Care Statement: The care of this patient involved high complexity decision making to prevent further life threatening deterioration of the patient 's condition and/or to evaluate & treat vital organ system(s) failure or risk of failure.
[2018-08-25 08:19] LABS: GLUCOSE,RANDOM 361 mg/dL (74-106)
[2018-08-25] MEDS: RANITIDINE HCL 150 MG/10 ML UNIT-DOSE PEG SCH ×2 (11:08→21:14)
[2018-08-25] MEDS: ENOXAPARIN NA (PORCINE) 60 MG/0.6 ML DISP.SYRIN SQ SCH ×2 (11:08→21:20)
[2018-08-25] MEDS: NAPH,MB-DB/K PH,MBDB POWDER PACKET PO SCH ×2 (11:08→21:14)
[2018-08-25] MEDS: METOPROLOL TARTRATE 25 MG TABLET (FP) PO SCH ×2 (11:09→21:13)
[2018-08-25] MEDS: POTASSIUM CHLORIDE ORAL LIQUID 20 MEQ/15 ML GT SCH (11:09)
[2018-08-25] MEDS: LIDOCAINE 5% TOPICAL PATCH TP SCH (11:09)
[2018-08-25] MEDS: levETIRAcetam 500 MG/5 ML ORAL SOLUTION (UNIT-DOSE CUPS) GT SCH ×2 (11:09→21:13)
[2018-08-25] MEDS: DEXAMETHASONE LIQUID 0.5 MG/5 ML 240 ML BULK BOTTLE PO SCH (11:20)
[2018-08-25] MEDS: RUXOLITINIB PHOSPHATE 5 MG GT SCH ×2 (11:21→21:14)
--- NOTE | 2018-08-25 12:08 | PN ---
Teaching Attending Note Name of Resident: Neisha Charles ATTENDING PHYSICIAN STATEMENT I saw and evaluated the patient. I reviewed the resident's note and discussed the case with the resident. I agree with the resident's findings and plan as documented. SUBJECTIVE: Pt seen and examined in the ICU. Remains on BiPAP but oxygenation improving. OBJECTIVE: Vital Signs Period Temp Pulse Resp BP Sys/Nichols Pulse Ox Last 24 Hr 97.2 F-98.8 F 65-130 14-35 117-159/77-97 93-100 Intake & Output 08/22/18 08/23/18 08/24/18 08/25/18 23:59 23:59 23:59 23:59 Intake Total 2500 1056 1189 1172 Balance 2500 1056 1189 1172 Weight 61 kg 61.734 kg 62.596 kg 62.596 kg Gen: less tachypneic on BiPAP Heart: RRR Lung: distant breath sounds, poor effort Abd: soft, nontender Ext: trace edema CBC, BMP 08/25/18 05:30 08/25/18 05:30 Active Medications Acetaminophen (Tylenol -) 650 mg PO Q4H PRN PRN Reason: PAIN OR FEVER Last Admin: 08/21/18 09:14 Dose: 650 mg Albuterol Sulfate (Ventolin 0.083% Nebulizer Soln -) 1 amp NEB Q6H PRN PRN Reason: SHORT OF BREATH/WHEEZING Last Admin: 08/25/18 08:39 Dose: 1 amp Artificial Tears (Artificial Tears) 1 drop OU Q6H PRN PRN Reason: DRY EYES Last Admin: 08/23/18 22:20 Dose: 1 drop Chlorhexidine Gluconate (Hibiclens For Decolonization -) 1 applic TP HS [facility] Last Admin: 08/24/18 22:26 Dose: 1 applic Dexamethasone (Decadron Liquid -) 0.5 mg PO DAILY [facility] Last Admin: 08/25/18 11:20 Dose: 0.5 mg Enoxaparin Sodium (Lovenox -) 60 mg SQ BID [facility] Last Admin: 08/25/18 11:08 Dose: 60 mg Gabapentin (Neurontin Oral Liquid -) 250 mg PEG TID [facility] Last Admin: 08/25/18 05:55 Dose: 250 mg Guaifenesin (Robitussin Dm -) 10 ml PO Q6H PRN PRN Reason: COUGH Insulin Aspart (Novolog Vial Sliding Scale -) 1 vial SQ ACHS [facility]; Protocol Levetiracetam (Keppra Oral Solution -) 500 mg GT BID [facility] Last Admin: 08/25/18 11:09 Dose: 500 mg Lidocaine (Lidoderm Patch -) 1 patch TP DAILY [facility] Last Admin: 08/25/18 11:09 Dose: 1 patch Loperamide HCl (Imodium Liquid -) 2 mg PEG DAILY [facility] Last Admin: 08/21/18 09:14 Dose: 2 mg Metoprolol Tartrate (Lopressor -) 25 mg PO BID [facility] Last Admin: 08/25/18 11:09 Dose: 25 mg Miscellaneous (Lidoderm Patch Removal) 1 each MC DAILY@2200 [facility] Last Admin: 08/24/18 22:26 Dose: 1 each Mupirocin (Bactroban Ointment (For Decolonization) -) 1 applic NS BID [facility] Stop: 08/25/18 21:59 Last Admin: 08/24/18 22:26 Dose: 1 applic Nitroglycerin (Nitrostat -) 0.4 mg SL Q5M PRN PRN Reason: FOR CHEST PAIN Last Admin: 08/20/18 13:56 Dose: 0.4 mg Ruxolitinib Phosphate [Jakafi] 5 Mg 5 mg GT BID [facility] Last Admin: 08/25/18 11:21 Dose: Not Given Oxycodone HCl (Roxicodone -) 5 mg PO Q6H PRN PRN Reason: PAIN LEVEL 1-5 Last Admin: 08/25/18 06:54 Dose: 5 mg Potassium Chloride (Potassium Chloride Oral Liquid) 40 meq GT DAILY [facility] Last Admin: 08/25/18 11:09 Dose: 40 meq Potassium Phos/Sodium Phos (Phos-Nak Packet -) 1 packet PO BID [facility] Last Admin: 08/25/18 11:08 Dose: 1 packet Ranitidine HCl (Zantac Oral Solution -) 150 mg PEG BID [facility] Last Admin: 08/25/18 11:08 Dose: 150 mg Warfarin Sodium (Coumadin -) 5 mg PO DAILY@1800 [facility] Last Admin: 08/24/18 17:15 Dose: 5 mg ASSESSMENT AND PLAN: Acute Hypoxic Respiratory Failure Pneumonia Atelectasis Influenza A Hodgkins Lymphoma Paroxymsal Atrial Fibrillation - completed antibiotics - can d/c steroids - inhaled bronchodilators - O2 to keep SpO2 >90% - BiPAP to assist in work of breathing - aspiration precautions - inhaled bronchodilators - on anticoagulation - continuous pulse oximetry monitoring critical care time spent in reviewing chart, evaluating patient and formulating plan 35 min
[2018-08-25] MEDS ORDERED: INSULIN (NOVOLOG) ASPART 100 UNITS/ML 10ML VIAL ONE (12:15)
[2018-08-25] MEDS: MUPIROCIN 2% TOPICAL OINTMENT FOR DECOLONIZATION NS SCH (12:19)
[2018-08-25] MEDS: INSULIN SLIDING SCALE (NOVOLOG) 1 VIAL SQ SCH ×3 (12:20→21:20)
--- NOTE | 2018-08-25 12:36 | PN ---
Progress Note, Physician Chief Complaint: patient seen and examined in icu off bipap on venting mask awake alert antibiotic course completed - Current Medication List Current Medications: Active Medications Acetaminophen (Tylenol -) 650 mg PO Q4H PRN PRN Reason: PAIN OR FEVER Last Admin: 08/21/18 09:14 Dose: 650 mg Albuterol Sulfate (Ventolin 0.083% Nebulizer Soln -) 1 amp NEB Q6H PRN PRN Reason: SHORT OF BREATH/WHEEZING Last Admin: 08/25/18 08:39 Dose: 1 amp Artificial Tears (Artificial Tears) 1 drop OU Q6H PRN PRN Reason: DRY EYES Last Admin: 08/23/18 22:20 Dose: 1 drop Chlorhexidine Gluconate (Hibiclens For Decolonization -) 1 applic TP HS [facility] Last Admin: 08/24/18 22:26 Dose: 1 applic Dexamethasone (Decadron Liquid -) 0.5 mg PO DAILY [facility] Last Admin: 08/25/18 11:20 Dose: 0.5 mg Enoxaparin Sodium (Lovenox -) 60 mg SQ BID [facility] Last Admin: 08/25/18 11:08 Dose: 60 mg Gabapentin (Neurontin Oral Liquid -) 250 mg PEG TID [facility] Last Admin: 08/25/18 05:55 Dose: 250 mg Guaifenesin (Robitussin Dm -) 10 ml PO Q6H PRN PRN Reason: COUGH Insulin Aspart (Novolog Vial Sliding Scale -) 1 vial SQ ACHS [facility]; Protocol Last Admin: 08/25/18 12:20 Dose: 10 units Levetiracetam (Keppra Oral Solution -) 500 mg GT BID [facility] Last Admin: 08/25/18 11:09 Dose: 500 mg Lidocaine (Lidoderm Patch -) 1 patch TP DAILY [facility] Last Admin: 08/25/18 11:09 Dose: 1 patch Loperamide HCl (Imodium Liquid -) 2 mg PEG DAILY [facility] Last Admin: 08/21/18 09:14 Dose: 2 mg Metoprolol Tartrate (Lopressor -) 25 mg PO BID [facility] Last Admin: 08/25/18 11:09 Dose: 25 mg Miscellaneous (Lidoderm Patch Removal) 1 each MC DAILY@2200 [facility] Last Admin: 08/24/18 22:26 Dose: 1 each Mupirocin (Bactroban Ointment (For Decolonization) -) 1 applic NS BID [facility] Stop: 08/25/18 21:59 Last Admin: 08/25/18 12:19 Dose: 1 applic Nitroglycerin (Nitrostat -) 0.4 mg SL Q5M PRN PRN Reason: FOR CHEST PAIN Last Admin: 08/20/18 13:56 Dose: 0.4 mg Ruxolitinib Phosphate [Jakafi] 5 Mg 5 mg GT BID [facility] Last Admin: 08/25/18 11:21 Dose: Not Given Oxycodone HCl (Roxicodone -) 5 mg PO Q6H PRN PRN Reason: PAIN LEVEL 1-5 Last Admin: 08/25/18 06:54 Dose: 5 mg Potassium Chloride (Potassium Chloride Oral Liquid) 40 meq GT DAILY [facility] Last Admin: 08/25/18 11:09 Dose: 40 meq Potassium Phos/Sodium Phos (Phos-Nak Packet -) 1 packet PO BID [facility] Last Admin: 08/25/18 11:08 Dose: 1 packet Ranitidine HCl (Zantac Oral Solution -) 150 mg PEG BID [facility] Last Admin: 08/25/18 11:08 Dose: 150 mg Warfarin Sodium (Coumadin -) 5 mg PO DAILY@1800 [facility] Last Admin: 08/24/18 17:15 Dose: 5 mg - Objective Vital Signs: Vital Signs Temperature 98.8 F 08/25/18 08:00 Pulse Rate 82 08/25/18 12:00 Respiratory Rate 17 08/25/18 12:00 Blood Pressure 159/91 08/25/18 12:00 O2 Sat by Pulse Oximetry (%) 96 08/25/18 11:47 Constitutional: Yes: Calm Cardiovascular: Yes: Regular Rate and Rhythm, S1, S2 Respiratory: Yes: Diminished Gastrointestinal: Yes: Normal Bowel Sounds, Soft Neurological: Yes: Alert Labs: CBC, BMP 08/25/18 05:30 08/25/18 05:30 INR, PTT INR 1.43 (0.83-1.09) H 08/24/18 05:30 Problem List - Problems (1) Acute hypoxemic respiratory failure Assessment/Plan: completed abx course on bipap changed to venti mask in morning monitor oxygen saturation Code(s): J96.01 - ACUTE RESPIRATORY FAILURE WITH HYPOXIA (2) Influenza A Assessment/Plan: tamiflu completed off droplet precautions Code(s): J10.1 - FLU DUE TO OTH IDENT INFLUENZA VIRUS W OTH RESP MANIFEST (3) Hypokalemia Assessment/Plan: resolved Code(s): E87.6 - HYPOKALEMIA (4) Anticoagulant long-term use Assessment/Plan: hx of cva - on couamdin monitor inr Code(s): Z79.01 - FRAUD MANAGER (CURRENT) USE OF ANTICOAGULANTS (5) Hodgkin lymphoma Assessment/Plan: heme on board on jakafi and dexa Code(s): C81.90 - HODGKIN LYMPHOMA, UNSPECIFIED, UNSPECIFIED SITE (6) Hypomagnesemia Assessment/Plan: iv magenusium Code(s): E83.42 - HYPOMAGNESEMIA (7) Hypophosphatemia Assessment/Plan: repleted recheck in AM Code(s): E83.39 - OTHER DISORDERS OF PHOSPHORUS METABOLISM
--- NOTE | 2018-08-25 13:00 | CONSULT ---
Admitting History and Physical - Primary Care Physician PCP: Nikki Bahena - Admission History of Present Illness: The patient is a 37 year old female, [facility] resident, with a significant PMH of hodgkins lymphoma, BMT, CVA (on coumadin), who presents to the emergency department with 3 days of worsening SOB. Pt reports Per RD:Female transferred to the ICU with SOB. -acute hypoxic respiratory failure, PNA, influenza A./ -Hx of hodgkins lymphoma -on chemo. -Pt on bipap in the ICU and getting enteral feeds via PEG. PEG for meds Pt said she was eating chopped diet in [place] 08/22/18 Enteral feeds Pt on bipap and unable to take PO Off Bipap today. Per transfer lisa, pt with h/o dysphonia, was on [facility]-soft, thin liquids at [facility]. Failure to thrive.Pt reports h/o stroke, h/o dysphagia, had w/u at [facility] 04/2018. Pt required finely minced food alternating with water to clear. She reports that she had reg diet here upon admission which she requested. She had trouble breathing, needing transfer to ICU. PEG feedings initiated. 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: CVA Cardiovascular: Yes: AFIB Pulmonary: No: Asthma Gastrointestinal: No: Ascites Hepatobiliary: No: Cirrhosis Renal/: No: Renal Failure ...: No Heme/Onc: Yes: Cancer, Other - Smoking History Smoking history: Never smoked Have you smoked in the past 12 months: No - Alcohol/Substance Use Hx Alcohol Use: No - Social History ADL: Support Services History of Recent Travel: No History - Admission Reason For Visit: INFLUENZA DUE TO INFLUENZA VIRUS,TYPE A, HUMAN - Diagnostics X-ray: Report Reviewed - General Mental Status: Alert and Oriented, Awake and Alert, Able to Follow Commands Attention: Intact, Minimal Impairment Head/Neck Control: WFL - Hearing Hearing: Normal Speech Evaluation - Communication Primary Language: EQUATORIAL GUINEAN Communication: Yes: Within Normal Limits Oral Expression Ability: Yes: No Impairment - Speech Production Able to Make Needs Known: Yes: WNL Intelligibility: Yes: WNL - Speech Characteristics Voice Loudness: Normal, Mildly Soft/Quiet Voice Pitch: Yes: Normal Voice Phonatory-based Quality: Yes: Normal Speech Pattern: Normal Speech Clarity: < 100% Nasal Resonance: Normal Articulation: Yes: Precise Voice, Other Observations: Yes: Inadequate Breath Support - Language/Auditory Comprehension Follows: Yes: 2 Stage Simple Commands - Language/Verbal Expression Able to Respond to Simple Queries: Yes: WNL Able to Communicate Wants and Needs: Yes: WNL Functional Communication Status: Yes: WNL - Swallow Evaluation/Bedside Assessment Current Nutritional Intake: NPO, G Tube Oral Secretions: Yes: WFL Facial Symmetry at Rest: Symmetrical Facial Symmetry on Retraction: Symmetrical Against Resistance Opening: Normal Against Resistance Closing: Normal Pucker Lips: Normal Smile: Normal Lingual Movement: Normal, Symmetric Lingual Speed of Movement: Normal Lingual Movement Strgth Against Opposition: Normal Lingual Movement Characteristics: Normal Velopharyngeal Movement: Normal Laryngeal Elevation: Impaired Laryngeal Movement: Reduced Excursion, Labored,delay initiation, Reduced Velocity Labial Seal: WFL Oral Prep Time: WFL A-P Transit: WFL Pocketing: None Timing of Swallow: Delayed Coughing/Throat Clear: Yes (thin) Recommendations - Speech Evaluation, Impression/Plan Impression: On VM. Reduced laryngeal excursion and VOM. Cough with thin liquid. Neck hardened area. Receiving PEG feedings but wants to eat. Recent SOB requiring BIPAP. H/o abnormal MBS at [facility], per pt, in Apr, 2018. Denies h/ o PNA previously. - Dysphagia Impressions/Plan Swallowing Skills: Impaired Dysphagia Impressions: Risk of Aspiration, Ongoing Evaluation *Silent aspiration: cannot be R/O at bedside Dysphagia Treatment Plan: Other (Continue PEG feedings until MBS) Recommendations: MBS w Esophagus
[2018-08-25] MEDS ORDERED: PT OWN MED DRAWER 7, Y5N ONE ×4 (13:47→22:00)
[2018-08-25 13:55] LABS: ANISOCYTOSIS 1+; OVALOCYTE 1+
[2018-08-25 14:24] LABS: INR 1.49 (0.83-1.09); PROTHROMBIN TIME (PATIENT) 17.6 SEC (9.7-13.0)
--- NOTE | 2018-08-25 15:26 | PN ---
Physical Exam: SUBJECTIVE: Patient seen and examined c/o diarrhea due to to much tube feeds; rate controlled OBJECTIVE: Vital Signs Period Temp Pulse Resp BP Sys/Nichols Pulse Ox Last 24 Hr 97.2 F-98.8 F 65-130 14-35 117-159/77-97 95-100 GENERAL: The patient is awake, alert, and fully oriented, in no acute distress. LUNGS: Breath sounds equal, clear to auscultation bilaterally, no wheezes, no crackles, no accessory muscle use. HEART: Regular rate and rhythm, S1, S2 without murmur, rub or gallop. ABDOMEN: Soft, nontender, nondistended, normoactive bowel sounds, no guarding, no rebound, no hepatosplenomegaly, no masses. EXTREMITIES: 2+ pulses, warm, well-perfused, no edema. NEUROLOGICAL: Cranial nerves II through XII grossly intact. Normal speech, gait not observed. PSYCH: Normal mood, normal affect. Laboratory Results - last 24 hr 08/22/18 08/24/18 08/24/18 12:30 05:30 18:20 WBC RBC Hgb Hct MCV MCH MCHC RDW Plt Count MPV Absolute Neuts (auto) Neutrophils % Neutrophils % (Manual) Band Neutrophils % Lymphocytes % Lymphocytes % (Manual) Monocytes % Monocytes % (Manual) Eosinophils % Eosinophils % (Manual) Basophils % Basophils % (Manual) Myelocytes % (Man) Promyelocytes % (Man) Blast Cells % (Manual) Nucleated RBC % Metamyelocytes Anisocytosis Microcytosis Ovalocytes Schistocytes Haptoglobin 520 H PT with INR INR Sodium Potassium Chloride Carbon Dioxide Anion Gap BUN Creatinine Creat Clearance w eGFR POC Glucometer Random Glucose Calcium Phosphorus Magnesium Iron 70 TIBC 282 Iron Saturation 25 Total Bilirubin AST ALT Alkaline Phosphatase Total Protein Albumin Stool Occult Blood Negative c-ANCA <1:20 Proteinase 3 (PR3) <3.5 p-ANCA <1:20 Atypical p-ANCA <1:20 Myeloperoxidase Ab <9.0 08/25/18 08/25/18 08/25/18 05:30 05:30 12:09 WBC 12.4 H RBC 3.51 L Hgb 8.9 L Hct 27.5 L MCV 78.4 L MCH 25.3 L MCHC 32.3 RDW 25.7 H Plt Count 316 MPV 8.6 Absolute Neuts (auto) 11.6 H Neutrophils % 93.8 H Neutrophils % (Manual) 98.0 H Band Neutrophils % 0.0 Lymphocytes % 1.4 L D Lymphocytes % (Manual) 1.0 L Monocytes % 4.6 Monocytes % (Manual) 1 L D Eosinophils % 0.0 Eosinophils % (Manual) 0.0 Basophils % 0.2 Basophils % (Manual) 0.0 Myelocytes % (Man) 0 Promyelocytes % (Man) 0 Blast Cells % (Manual) 0 Nucleated RBC % 0 Metamyelocytes 0 Anisocytosis 1+ Microcytosis 1+ Ovalocytes 1+ Schistocytes 1+ Haptoglobin PT with INR INR Sodium 137 Potassium 4.8 Chloride 96 L Carbon Dioxide 38 H Anion Gap 3 L BUN 27 H Creatinine 0.3 L Creat Clearance w eGFR > 60 POC Glucometer 359 Random Glucose 361 H* Calcium 8.9 Phosphorus 2.1 L Magnesium 1.9 Iron TIBC Iron Saturation Total Bilirubin 0.3 AST 43 H ALT 85 H Alkaline Phosphatase 317 H Total Protein 6.1 L Albumin 2.9 L Stool Occult Blood c-ANCA Proteinase 3 (PR3) p-ANCA Atypical p-ANCA Myeloperoxidase Ab 08/25/18 13:30 WBC RBC Hgb Hct MCV MCH MCHC RDW Plt Count MPV Absolute Neuts (auto) Neutrophils % Neutrophils % (Manual) Band Neutrophils % Lymphocytes % Lymphocytes % (Manual) Monocytes % Monocytes % (Manual) Eosinophils % Eosinophils % (Manual) Basophils % Basophils % (Manual) Myelocytes % (Man) Promyelocytes % (Man) Blast Cells % (Manual) Nucleated RBC % Metamyelocytes Anisocytosis Microcytosis Ovalocytes Schistocytes Haptoglobin PT with INR 17.60 H INR 1.49 H Sodium Potassium Chloride Carbon Dioxide Anion Gap BUN Creatinine Creat Clearance w eGFR POC Glucometer Random Glucose Calcium Phosphorus Magnesium Iron TIBC Iron Saturation Total Bilirubin AST ALT Alkaline Phosphatase Total Protein Albumin Stool Occult Blood c-ANCA Proteinase 3 (PR3) p-ANCA Atypical p-ANCA Myeloperoxidase Ab Active Medications Generic Name Dose Route Start Last Admin Trade Name Freq PRN Reason Stop Dose Admin Acetaminophen 650 mg 08/14/18 01:26 08/21/18 09:14 Tylenol - PO 650 mg Q4H PRN Administration PAIN OR FEVER Albuterol Sulfate 1 amp 08/14/18 01:26 08/25/18 08:39 Ventolin 0.083% Nebulizer Soln - NEB 1 amp Q6H PRN Administration SHORT OF BREATH/WHEEZING Artificial Tears 1 drop 08/23/18 21:33 08/23/18 22:20 Artificial Tears OU 1 drop Q6H PRN Administration DRY EYES Chlorhexidine Gluconate 1 applic 08/20/18 22:00 08/24/18 22:26 Hibiclens For Decolonization - TP 1 applic HS LANDEN Administration Dexamethasone 0.5 mg 08/22/18 10:00 08/25/18 11:20 Decadron Liquid - PO 0.5 mg DAILY LANDEN Administration Enoxaparin Sodium 60 mg 08/23/18 22:00 08/25/18 11:08 Lovenox - SQ 60 mg BID LANDEN Administration Gabapentin 250 mg 08/14/18 06:00 08/25/18 13:50 Neurontin Oral Liquid - PEG 250 mg TID LANDEN Administration Guaifenesin 10 ml 08/21/18 22:50 08/25/18 13:30 Robitussin Dm - PO 10 ml Q6H PRN Administration COUGH Insulin Aspart 1 vial 08/25/18 11:00 08/25/18 12:20 Novolog Vial Sliding Scale - SQ 10 units ACHS LANDEN Administration Protocol Levetiracetam 500 mg 08/14/18 10:00 08/25/18 11:09 Keppra Oral Solution - GT 500 mg BID LANDEN Administration Lidocaine 1 patch 08/21/18 12:00 08/25/18 11:09 Lidoderm Patch - TP 1 patch DAILY [facility]EN Administration Loperamide HCl 2 mg 08/21/18 10:00 08/21/18 09:14 Imodium Liquid - PEG 2 mg DAILY [facility]EN Administration Metoprolol Tartrate 25 mg 08/23/18 14:00 08/25/18 11:09 Lopressor - PO 25 mg BID LANDEN Administration Miscellaneous 1 each 08/21/18 22:00 08/24/18 22:26 Lidoderm Patch Removal MC 1 each DAILY@2200 LANDEN Administration Mupirocin 1 applic 08/20/18 22:00 08/25/18 12:19 Bactroban Ointment (For Decolonization) - NS 08/25/18 21:59 1 applic BID LANDEN Administration Nitroglycerin 0.4 mg 08/17/18 21:59 08/20/18 13:56 Nitrostat - SL 0.4 mg Q5M PRN Administration FOR CHEST PAIN Ruxolitinib 5 mg 08/14/18 10:00 08/25/18 11:21 Phosphate [Jakafi] 5 GT Not Given Mg BID LANDEN Oxycodone HCl 5 mg 08/24/18 17:09 08/25/18 06:54 Roxicodone - PO 5 mg Q6H PRN Administration PAIN LEVEL 1-5 Potassium Chloride 40 meq 08/14/18 10:00 08/25/18 11:09 Potassium Chloride Oral Liquid GT 40 meq DAILY [facility]EN Administration Potassium Phos/Sodium Phos 1 packet 08/24/18 10:00 08/25/18 11:08 Phos-Nak Packet - PO 1 packet BID LANDEN Administration Ranitidine HCl 150 mg 08/14/18 10:00 08/25/18 11:08 Zantac Oral Solution - PEG 150 mg BID [facility]EN Administration Warfarin Sodium 5 mg 08/24/18 12:26 08/24/18 17:15 Coumadin - PO 5 mg DAILY@1800 LANDEN Administration ASSESSMENT/PLAN: This is a 37 yo F, SNF resident, with hx CVA, on warfarin, Hodgkin lymphopma 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 On broad spectrum Abx and Tamiflu. 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 Visit type - Emergency Visit Emergency Visit: Yes ED Registration Date: 08/12/18 Care time: The patient presented to the Emergency Department on the above date and was hospitalized for further evaluation of their emergent condition. - New Patient This patient is new to me today: No - Critical Care Critical Care patient: No
[2018-08-25] MEDS: WARFARIN NA 5 MG TABLET (UD) PO SCH (17:51)
[2018-08-25] MEDS ORDERED: ACETAMINOPHEN 325 MG TABLET (FP) PO PRN (18:54)
[2018-08-25] MEDS ORDERED: NITROGLYCERIN SUBLINGUAL 1/150 0.4 MG TAB SL PRN (18:54)
[2018-08-25] MEDS ORDERED: ARTIFICIAL TEARS (POLYVINYL ALCOHOL) OPTH DROPS OU PRN (18:54)
[2018-08-25] MEDS: LIDOCAINE PATCH REMOVAL MC SCH (21:14)
[2018-08-25] MEDS ORDERED: LIDOCAINE PATCH REMOVAL MC SCH (22:00)
[2018-08-25] MEDS ORDERED: CHLORHEXIDINE GLUCONATE 4% CLEANSER FOR DECOLONIZATION TP SCH (22:00)
[2018-08-25] MEDS ORDERED: MUPIROCIN 2% TOPICAL OINTMENT FOR DECOLONIZATION NS SCH (22:00)
[2018-08-25] MEDS ORDERED: LOPERAMIDE HCL 1 MG/5 ML UNIT DOSE CUP PEG ONE (22:02)
--- NOTE | 2018-08-25 23:53 | PN ---
Progress Note (short form) - Note Progress Note: patient seen and eamined reports feeling slightly better Cor: RSR, No murmurs, No gallops Lungs: scattered wheezes Abd: Soft, Normal bowel sounds, No organomegaly Ext:No significant edema sclerodermoid skin changes labs/meds reviewed a/p 37F, SNF resident, with hx CVA, on warfarin, HL s/p allogeneic transplant in 2014, followed at [facility] (Dr. 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 on pain meds chronically off antibiotics/steroids will follow clinical course
[2018-08-26] MEDS ORDERED: PT OWN MED DRAWER 7, Y5N ONE ×5 (04:42→23:04)
[2018-08-26] MEDS: guaiFENesin/D-METHORPHAN HB 10 ML UNIT-DOSE CUPS PO PRN ×2 (04:58→14:58)
[2018-08-26] MEDS: GABAPENTIN 250 MG/5 ML ORAL SOLUTION, 470 ML BOTTLE PEG SCH ×3 (05:00→22:50)
[2018-08-26] MEDS: INSULIN SLIDING SCALE (NOVOLOG) 1 VIAL SQ SCH ×5 (06:07→22:48)
[2018-08-26 06:47] LABS: BASO % 0.1 % (0-2.0); HEMATOCRIT 27.9 % (32.4-45.2); HEMOGLOBIN 9.2 GM/dL (10.7-15.3); LYMPH % 3.9 % (8-40); MCH 25.9 pg (25.7-33.7); MEAN CELL VOLUME 78.6 fl (80-96); MEAN PLT VOLUME 9.4 fl (7.5-11.1); MONO % 12.8 % (3.8-10.2); NEUT % 83.2 % (42.8-82.8); PLATELET COUNT 345 K/MM3 (134-434); RBC 3.55 M/mm3 (3.60-5.2); RDW 26.4 % (11.6-15.6); WHITE BLOOD COUNT 8.4 K/mm3 (4.0-10.0)
[2018-08-26 08:10] LABS: ALBUMIN 3.1 g/dl (3.4-5.0); ALK PHOS 265 U/L (45-117); ANION GAP 6 MMOL/L (8-16); BILIRUBIN,TOTAL 0.2 mg/dL (0.2-1); BLOOD UREA NITROGEN 29 mg/dL (7-18); CALCIUM 9.2 mg/dL (8.5-10.1); CHLORIDE 99 mmol/L (98-107); CO2 37 mmol/L (21-32); CREATININE 0.2 mg/dL (0.55-1.3); GLUCOSE,RANDOM 115 mg/dL (74-106); PHOSPHOROUS 3.4 mg/dL (2.5-4.9); POTASSIUM 4.7 mmol/L (3.5-5.1); SGOT/AST 18 U/L (15-37); SGPT/ALT 63 U/L (13-61); SODIUM 141 mmol/L (136-145); TOT PROT 6.4 g/dl (6.4-8.2)
[2018-08-26] MEDS: LOPERAMIDE HCL 1 MG/5 ML UNIT DOSE CUP PEG SCH (10:36)
[2018-08-26] MEDS: DEXAMETHASONE LIQUID 0.5 MG/5 ML 240 ML BULK BOTTLE PO SCH (10:36)
[2018-08-26] MEDS: levETIRAcetam 500 MG/5 ML ORAL SOLUTION (UNIT-DOSE CUPS) GT SCH ×2 (10:37→22:49)
[2018-08-26] MEDS: RUXOLITINIB PHOSPHATE 5 MG GT SCH ×2 (10:37→22:50)
[2018-08-26] MEDS: RANITIDINE HCL 150 MG/10 ML UNIT-DOSE PEG SCH ×2 (10:37→22:49)
[2018-08-26] MEDS: NAPH,MB-DB/K PH,MBDB POWDER PACKET PO SCH ×2 (10:38→22:50)
[2018-08-26] MEDS: POTASSIUM CHLORIDE ORAL LIQUID 20 MEQ/15 ML GT SCH (10:38)
[2018-08-26] MEDS: LIDOCAINE 5% TOPICAL PATCH TP SCH ×2 (10:38→14:55)
[2018-08-26] MEDS: METOPROLOL TARTRATE 25 MG TABLET (FP) PO SCH ×2 (10:38→22:49)
[2018-08-26] MEDS: ENOXAPARIN NA (PORCINE) 60 MG/0.6 ML DISP.SYRIN SQ SCH ×2 (10:39→22:50)
--- NOTE | 2018-08-26 12:13 | PN ---
Progress Note, Physician Chief Complaint: patient seen and examined on venti mask overnight feels her breathing is better wants to eat on tube feeds to get MBS tube feeds changed to osmolite as jevity giving her diarrhea - Current Medication List Current Medications: Active Medications Acetaminophen (Tylenol Oral Solution -) 650 mg PO Q6H PRN PRN Reason: FEVER Albuterol Sulfate (Ventolin 0.083% Nebulizer Soln -) 1 amp NEB Q6H PRN PRN Reason: SHORT OF BREATH/WHEEZING Artificial Tears (Artificial Tears) 1 drop OU Q6H PRN PRN Reason: DRY EYES Dexamethasone (Decadron Liquid -) 0.5 mg PO DAILY [facility] Last Admin: 08/26/18 10:36 Dose: 0.5 mg Enoxaparin Sodium (Lovenox -) 60 mg SQ BID [facility] Last Admin: 08/26/18 10:39 Dose: 60 mg Gabapentin (Neurontin Oral Liquid -) 250 mg PEG TID [facility] Last Admin: 08/26/18 05:00 Dose: 250 mg Guaifenesin (Robitussin Dm -) 10 ml PO Q6H PRN PRN Reason: COUGH Last Admin: 08/26/18 04:58 Dose: 10 ml Insulin Aspart (Novolog Vial Sliding Scale -) 1 vial SQ [facility]; Protocol Last Admin: 08/26/18 11:41 Dose: Not Given Levetiracetam (Keppra Oral Solution -) 500 mg GT BID [facility] Last Admin: 08/26/18 10:37 Dose: 500 mg Lidocaine (Lidoderm Patch -) 1 patch TP DAILY [facility] Loperamide HCl (Imodium Liquid -) 2 mg PEG DAILY [facility] Last Admin: 08/26/18 10:36 Dose: 2 mg Metoprolol Tartrate (Lopressor -) 25 mg PO BID [facility] Last Admin: 08/26/18 10:38 Dose: 25 mg Miscellaneous (Lidoderm Patch Removal) 1 each MC DAILY@2200 [facility] Last Admin: 08/25/18 21:14 Dose: 1 each Nitroglycerin (Nitrostat -) 0.4 mg SL Q5M PRN PRN Reason: FOR CHEST PAIN Non-Formulary Medication (Ruxolitinib Phosphate [Jakafi]) 5 mg GT BID [facility] Last Admin: 08/26/18 10:37 Dose: 5 mg Potassium Chloride (Potassium Chloride Oral Liquid) 40 meq GT DAILY [facility] Last Admin: 08/26/18 10:38 Dose: 40 meq Potassium Phos/Sodium Phos (Phos-Nak Packet -) 1 packet PO BID [facility] Last Admin: 08/26/18 10:38 Dose: 1 packet Ranitidine HCl (Zantac Oral Solution -) 150 mg PEG BID [facility] Last Admin: 08/26/18 10:37 Dose: 150 mg Warfarin Sodium (Coumadin -) 5 mg PO DAILY@1800 [facility] - Objective Vital Signs: Vital Signs Temperature 98.3 F 08/26/18 10:00 Pulse Rate 70 08/26/18 10:00 Respiratory Rate 18 08/26/18 10:00 Blood Pressure 128/63 08/26/18 10:00 O2 Sat by Pulse Oximetry (%) 100 08/25/18 22:00 Constitutional: Yes: Calm Cardiovascular: Yes: Regular Rate and Rhythm, S1, S2 Respiratory: Yes: Diminished, On Venti-Mask Gastrointestinal: Yes: Normal Bowel Sounds, Soft, Other (g tube) Labs: CBC, BMP 08/26/18 05:00 08/26/18 05:00 INR, PTT INR 1.49 (0.83-1.09) H 08/25/18 13:30 Problem List - Problems (1) Acute hypoxemic respiratory failure Assessment/Plan: completed abx course now on venti mask monitor oxygen saturation Code(s): J96.01 - ACUTE RESPIRATORY FAILURE WITH HYPOXIA (2) Influenza A Assessment/Plan: tamiflu completed off droplet precautions Code(s): J10.1 - FLU DUE TO OTH IDENT INFLUENZA VIRUS W OTH RESP MANIFEST (3) Hypokalemia Assessment/Plan: resolved Code(s): E87.6 - HYPOKALEMIA (4) Anticoagulant long-term use Assessment/Plan: hx of cva - on couamdin monitor inr Code(s): Z79.01 - [facility]FP (CURRENT) USE OF ANTICOAGULANTS (5) Hodgkin lymphoma Assessment/Plan: heme on board on jakafi and dexa Code(s): C81.90 - HODGKIN LYMPHOMA, UNSPECIFIED, UNSPECIFIED SITE (6) Hypomagnesemia Assessment/Plan: resolved Code(s): E83.42 - HYPOMAGNESEMIA (7) Hypophosphatemia Assessment/Plan: now improved Code(s): E83.39 - OTHER DISORDERS OF PHOSPHORUS METABOLISM Assessment/Plan to get MBS test tube feeds changed
[2018-08-26 14:18] LABS: INR 1.67 (0.83-1.09); PROTHROMBIN TIME (PATIENT) 19.8 SEC (9.7-13.0)
[2018-08-26] MEDS: oxyCODONE HCL 5 MG TABLET PO PRN (14:59)
--- NOTE | 2018-08-26 15:02 | PN ---
Progress Note (short form) - Note Progress Note: Patient seen and examined Returned [place] [facility] [place] Coughing, non productive and congested Last Vital Signs Temp Pulse Resp BP Pulse Ox 98.3 F 70 18 128/63 97 08/26/18 10:00 08/26/18 10:00 08/26/18 10:00 08/26/18 10:00 08/26/18 10:00 HEENT: PATRICE, EOM Intact Cor: RSR, No murmurs, No gallops Lungs: Rhonchi - anteriorly and posteriorly Abd: Soft, Normal bowel sounds, No organomegaly Ext:No significant edema Skin: rash CBC, BMP 08/26/18 05:00 08/26/18 05:00 Current Medications Generic Name Dose Route Start Last Admin Trade Name Freq PRN Reason Stop Dose Admin Acetaminophen 650 mg 08/26/18 12:11 Tylenol Oral Solution - PO Q6H PRN FEVER Albuterol Sulfate 1 amp 08/25/18 18:54 Ventolin 0.083% Nebulizer Soln - NEB Q6H PRN SHORT OF BREATH/WHEEZING Artificial Tears 1 drop 08/25/18 18:54 Artificial Tears OU Q6H PRN DRY EYES Dexamethasone 0.5 mg 08/26/18 10:00 08/26/18 10:36 Decadron Liquid - PO 0.5 mg DAILY [facility] Administration Enoxaparin Sodium 60 mg 08/25/18 22:00 08/26/18 10:39 Lovenox - SQ 60 mg BID [facility] Administration Gabapentin 250 mg 08/25/18 22:00 08/26/18 14:59 Neurontin Oral Liquid - PEG 250 mg TID [facility] Administration Guaifenesin 10 ml 08/25/18 18:54 08/26/18 14:58 Robitussin Dm - PO 10 ml Q6H PRN Administration COUGH Insulin Aspart 1 vial 08/25/18 22:00 08/26/18 12:27 Novolog Vial Sliding Scale - SQ Not Given ACHS LANDEN Protocol Levetiracetam 500 mg 08/25/18 22:00 08/26/18 10:37 Keppra Oral Solution - GT 500 mg BID [facility] Administration Lidocaine 1 patch 08/26/18 10:00 08/26/18 14:55 Lidoderm Patch - TP Not Given DAILY [facility] Loperamide HCl 2 mg 08/26/18 10:00 08/26/18 10:36 Imodium Liquid - PEG 2 mg DAILY [facility] Administration Metoprolol Tartrate 25 mg 08/25/18 22:00 08/26/18 10:38 Lopressor - PO 25 mg BID [facility] Administration Miscellaneous 1 each 08/25/18 22:00 08/25/18 21:14 Lidoderm Patch Removal MC 1 each DAILY@2200 [facility] Administration Nitroglycerin 0.4 mg 08/25/18 18:54 Nitrostat - SL Q5M PRN FOR CHEST PAIN Non-Formulary Medication 5 mg 08/25/18 22:00 08/26/18 10:37 Ruxolitinib Phosphate [Jakafi] GT 5 mg BID [facility] Administration Oxycodone HCl 5 mg 08/26/18 14:48 08/26/18 14:59 Roxicodone - PO 5 mg Q6H PRN Administration PAIN LEVEL 7 - 10 Potassium Chloride 40 meq 08/26/18 10:00 08/26/18 10:38 Potassium Chloride Oral Liquid GT 40 meq DAILY [facility] Administration Potassium Phos/Sodium Phos 1 packet 08/25/18 22:00 08/26/18 10:38 Phos-Nak Packet - PO 1 packet BID [facility] Administration Ranitidine HCl 150 mg 08/25/18 22:00 08/26/18 10:37 Zantac Oral Solution - PEG 150 mg BID [facility] Administration Warfarin Sodium 5 mg 08/26/18 18:00 Coumadin - PO DAILY@1800 [facility] Impression: Influenza 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
--- NOTE | 2018-08-26 17:47 | PN ---
Progress Note, TRANSPLANT CASE MANAGER - Note Progress Note: link trainer teacher reported that pt wanted an explanation why she is being given a modified diet. TRANSPLANT CASE MANAGER spoke to pt explaining the results of the modified barium swallow study and explained that puree and thicken liquids is appropriate for a few days. Pt finally agreed. TRANSPLANT CASE MANAGER to follow up for diet tolerance and possible diet upgrade. TRANSPLANT CASE MANAGER will continue to monitor.
[2018-08-26] MEDS: WARFARIN NA 5 MG TABLET (UD) PO SCH (18:00)
[2018-08-26] MEDS: LIDOCAINE PATCH REMOVAL MC SCH (22:50)
[2018-08-27] MEDS: ALBUTEROL SO4 0.083% IH SOL 2.5 MG/3 ML VIAL.NEB. NEB PRN (05:31)
[2018-08-27] MEDS: GABAPENTIN 250 MG/5 ML ORAL SOLUTION, 470 ML BOTTLE PEG SCH ×3 (05:47→22:29)
[2018-08-27] MEDS: ACETAMINOPHEN 650 MG/20.3 ML ORAL SOLUTION (CUPS) PO PRN (05:48)
[2018-08-27] MEDS: oxyCODONE HCL 5 MG TABLET PO PRN ×2 (05:48→18:29)
[2018-08-27 06:15] LABS: BASO % 0.3 % (0-2.0); EOS % 0.1 % (0-4.5); HEMATOCRIT 29.5 % (32.4-45.2); HEMOGLOBIN 9.5 GM/dL (10.7-15.3); LYMPH % 6.1 % (8-40); MCHC 32.1 g/dl (32.0-36.0); MEAN CELL VOLUME 77.9 fl (80-96); MONO % 9.8 % (3.8-10.2); NEUT % 83.7 % (42.8-82.8); PLATELET COUNT 364 K/MM3 (134-434); RBC 3.78 M/mm3 (3.60-5.2); RDW 26.4 % (11.6-15.6); WHITE BLOOD COUNT 10.5 K/mm3 (4.0-10.0)
[2018-08-27 06:42] LABS: ALBUMIN 3.2 g/dl (3.4-5.0); ALK PHOS 251 U/L (45-117); ANION GAP 7 MMOL/L (8-16); BILIRUBIN,TOTAL 0.4 mg/dL (0.2-1); BLOOD UREA NITROGEN 25 mg/dL (7-18); CALCIUM 9.1 mg/dL (8.5-10.1); CHLORIDE 98 mmol/L (98-107); CO2 33 mmol/L (21-32); CREATININE 0.3 mg/dL (0.55-1.3); GLUCOSE,RANDOM 200 mg/dL (74-106); MAGNESIUM 1.6 mg/dL (1.8-2.4); PHOSPHOROUS 3.8 mg/dL (2.5-4.9); POTASSIUM 4.5 mmol/L (3.5-5.1); SGOT/AST 22 U/L (15-37); SGPT/ALT 55 U/L (13-61); SODIUM 138 mmol/L (136-145); TOT PROT 6.5 g/dl (6.4-8.2)
[2018-08-27] MEDS: INSULIN SLIDING SCALE (NOVOLOG) 1 VIAL SQ SCH ×4 (07:00→23:29)
[2018-08-27 07:04] LABS: INR 2.07 (0.83-1.09); PROTHROMBIN TIME (PATIENT) 24.6 SEC (9.7-13.0)
[2018-08-27] MEDS: DEXAMETHASONE LIQUID 0.5 MG/5 ML 240 ML BULK BOTTLE PO SCH (10:54)
[2018-08-27] MEDS: LOPERAMIDE HCL 1 MG/5 ML UNIT DOSE CUP PEG SCH (10:55)
[2018-08-27] MEDS: RANITIDINE HCL 150 MG/10 ML UNIT-DOSE PEG SCH ×2 (10:55→22:28)
[2018-08-27] MEDS: levETIRAcetam 500 MG/5 ML ORAL SOLUTION (UNIT-DOSE CUPS) GT SCH ×2 (10:55→22:29)
[2018-08-27] MEDS: POTASSIUM CHLORIDE ORAL LIQUID 20 MEQ/15 ML GT SCH (10:56)
[2018-08-27] MEDS: LIDOCAINE 5% TOPICAL PATCH TP SCH (10:56)
[2018-08-27] MEDS: ENOXAPARIN NA (PORCINE) 60 MG/0.6 ML DISP.SYRIN SQ SCH (10:57)
[2018-08-27] MEDS: METOPROLOL TARTRATE 25 MG TABLET (FP) PO SCH ×2 (10:57→22:29)
[2018-08-27] MEDS: NAPH,MB-DB/K PH,MBDB POWDER PACKET PO SCH ×2 (10:57→22:29)
[2018-08-27] MEDS: RUXOLITINIB PHOSPHATE 5 MG GT SCH ×2 (10:57→23:30)
--- NOTE | 2018-08-27 11:07 | PN ---
Progress Note, Physician - Current Medication List Current Medications: Active Medications Acetaminophen (Tylenol Oral Solution -) 650 mg PO Q6H PRN PRN Reason: FEVER Last Admin: 08/27/18 05:48 Dose: 650 mg Albuterol Sulfate (Ventolin 0.083% Nebulizer Soln -) 1 amp NEB Q6H PRN PRN Reason: SHORT OF BREATH/WHEEZING Last Admin: 08/27/18 05:31 Dose: 1 amp Artificial Tears (Artificial Tears) 1 drop OU Q6H PRN PRN Reason: DRY EYES Dexamethasone (Decadron Liquid -) 0.5 mg PO DAILY [facility] Last Admin: 08/27/18 10:54 Dose: 0.5 mg Enoxaparin Sodium (Lovenox -) 60 mg SQ BID [facility] Last Admin: 08/27/18 10:57 Dose: 60 mg Gabapentin (Neurontin Oral Liquid -) 250 mg PEG TID [facility] Last Admin: 08/27/18 05:47 Dose: 250 mg Guaifenesin (Robitussin Dm -) 10 ml PO Q6H PRN PRN Reason: COUGH Last Admin: 08/26/18 14:58 Dose: 10 ml Insulin Aspart (Novolog Vial Sliding Scale -) 1 vial SQ [facility]; Protocol Last Admin: 08/27/18 07:00 Dose: Not Given Levetiracetam (Keppra Oral Solution -) 500 mg GT BID [facility] Last Admin: 08/27/18 10:55 Dose: 500 mg Lidocaine (Lidoderm Patch -) 1 patch TP DAILY [facility] Last Admin: 08/27/18 10:56 Dose: Not Given Loperamide HCl (Imodium Liquid -) 2 mg PEG DAILY [facility] Last Admin: 08/27/18 10:55 Dose: 2 mg Metoprolol Tartrate (Lopressor -) 25 mg PO BID [facility] Last Admin: 08/27/18 10:57 Dose: 25 mg Miscellaneous (Lidoderm Patch Removal) 1 each MC DAILY@2200 [facility] Last Admin: 08/26/18 22:50 Dose: 1 each Nitroglycerin (Nitrostat -) 0.4 mg SL Q5M PRN PRN Reason: FOR CHEST PAIN Non-Formulary Medication (Ruxolitinib Phosphate [Jakafi]) 5 mg GT BID [facility] Last Admin: 08/27/18 10:57 Dose: 5 mg Oxycodone HCl (Roxicodone -) 5 mg PO Q6H PRN PRN Reason: PAIN LEVEL 7 - 10 Last Admin: 08/27/18 05:48 Dose: 5 mg Potassium Chloride (Potassium Chloride Oral Liquid) 40 meq GT DAILY [facility] Last Admin: 08/27/18 10:56 Dose: 40 meq Potassium Phos/Sodium Phos (Phos-Nak Packet -) 1 packet PO BID [facility] Last Admin: 08/27/18 10:57 Dose: 1 packet Ranitidine HCl (Zantac Oral Solution -) 150 mg PEG BID [facility] Last Admin: 08/27/18 10:55 Dose: 150 mg Warfarin Sodium (Coumadin -) 5 mg PO DAILY@1800 [facility] Last Admin: 08/26/18 18:00 Dose: 5 mg - Objective Vital Signs: Vital Signs Temperature 100 F H 08/27/18 10:00 Pulse Rate 109 H 08/27/18 10:00 Respiratory Rate 20 08/27/18 10:00 Blood Pressure 99/70 08/27/18 10:00 O2 Sat by Pulse Oximetry (%) 91 L 08/27/18 08:25 Cardiovascular: Yes: Regular Rate and Rhythm Respiratory: Yes: CTA Bilaterally, On Venti-Mask Gastrointestinal: Yes: Normal Bowel Sounds, Soft Labs: CBC, BMP 08/27/18 05:15 08/27/18 05:15 INR, PTT INR 2.07 (0.83-1.09) H 08/27/18 05:15 Assessment/Plan - Problems (1) Acute hypoxemic respiratory failure Assessment/Plan: completed abx course now on venti mask monitor oxygen saturation Code(s): J96.01 - ACUTE RESPIRATORY FAILURE WITH HYPOXIA (2) Influenza A Assessment/Plan: tamiflu completed off droplet precautions Code(s): J10.1 - FLU DUE TO OTH IDENT INFLUENZA VIRUS W OTH RESP MANIFEST (3) Hypokalemia Assessment/Plan: resolved Code(s): E87.6 - HYPOKALEMIA (4) Anticoagulant long-term use Assessment/Plan: hx of cva - on couamdin monitor inr--2 Code(s): Z79.01 - RESIDENTIAL (CURRENT) USE OF ANTICOAGULANTS (5) Hodgkin lymphoma Assessment/Plan: heme on board on jakafi and dexa Code(s): C81.90 - HODGKIN LYMPHOMA, UNSPECIFIED, UNSPECIFIED SITE (6) Hypomagnesemia Assessment/Plan: resolved Code(s): E83.42 - HYPOMAGNESEMIA (7) Hypophosphatemia Assessment/Plan: now improved Code(s): E83.39 - OTHER DISORDERS OF PHOSPHORUS METABOLISM MBS DONE RESULTS NOTED--PT TO START ON DIET
--- NOTE | 2018-08-27 11:34 | PN ---
Progress Note, Physician History of Present Illness: PULMONARY COMFORTABLE ON VM,LESS DYSPNEIC,LESS CONGESTED,FEBRILE T100 - Current Medication List Current Medications: Active Medications Acetaminophen (Tylenol Oral Solution -) 650 mg PO Q6H PRN PRN Reason: FEVER Last Admin: 08/27/18 05:48 Dose: 650 mg Albuterol Sulfate (Ventolin 0.083% Nebulizer Soln -) 1 amp NEB Q6H PRN PRN Reason: SHORT OF BREATH/WHEEZING Last Admin: 08/27/18 05:31 Dose: 1 amp Artificial Tears (Artificial Tears) 1 drop OU Q6H PRN PRN Reason: DRY EYES Dexamethasone (Decadron Liquid -) 0.5 mg PO DAILY [facility] Last Admin: 08/27/18 10:54 Dose: 0.5 mg Gabapentin (Neurontin Oral Liquid -) 250 mg PEG TID [facility] Last Admin: 08/27/18 05:47 Dose: 250 mg Guaifenesin (Robitussin Dm -) 10 ml PO Q6H PRN PRN Reason: COUGH Last Admin: 08/26/18 14:58 Dose: 10 ml Insulin Aspart (Novolog Vial Sliding Scale -) 1 vial SQ [facility]; Protocol Last Admin: 08/27/18 07:00 Dose: Not Given Levetiracetam (Keppra Oral Solution -) 500 mg GT BID [facility] Last Admin: 08/27/18 10:55 Dose: 500 mg Lidocaine (Lidoderm Patch -) 1 patch TP DAILY [facility] Last Admin: 08/27/18 10:56 Dose: Not Given Loperamide HCl (Imodium Liquid -) 2 mg PEG DAILY [facility] Last Admin: 08/27/18 10:55 Dose: 2 mg Metoprolol Tartrate (Lopressor -) 25 mg PO BID [facility] Last Admin: 08/27/18 10:57 Dose: 25 mg Miscellaneous (Lidoderm Patch Removal) 1 each MC DAILY@2200 [facility] Last Admin: 08/26/18 22:50 Dose: 1 each Nitroglycerin (Nitrostat -) 0.4 mg SL Q5M PRN PRN Reason: FOR CHEST PAIN Non-Formulary Medication (Ruxolitinib Phosphate [Jakafi]) 5 mg GT BID [facility] Last Admin: 08/27/18 10:57 Dose: 5 mg Oxycodone HCl (Roxicodone -) 5 mg PO Q6H PRN PRN Reason: PAIN LEVEL 7 - 10 Last Admin: 08/27/18 05:48 Dose: 5 mg Potassium Chloride (Potassium Chloride Oral Liquid) 40 meq GT DAILY [facility] Last Admin: 08/27/18 10:56 Dose: 40 meq Potassium Phos/Sodium Phos (Phos-Nak Packet -) 1 packet PO BID [facility] Last Admin: 08/27/18 10:57 Dose: 1 packet Ranitidine HCl (Zantac Oral Solution -) 150 mg PEG BID [facility] Last Admin: 08/27/18 10:55 Dose: 150 mg Warfarin Sodium (Coumadin -) 5 mg PO DAILY@1800 [facility] Last Admin: 08/26/18 18:00 Dose: 5 mg - Objective Vital Signs: Vital Signs Temperature 100 F H 08/27/18 10:00 Pulse Rate 109 H 08/27/18 10:00 Respiratory Rate 20 08/27/18 10:00 Blood Pressure 99/70 08/27/18 10:00 O2 Sat by Pulse Oximetry (%) 91 L 08/27/18 08:25 Constitutional: Yes: Well Nourished, Calm Eyes: Yes: WNL HENT: Yes: WNL Neck: Yes: WNL Cardiovascular: Yes: Regular Rate and Rhythm, S1, S2 Respiratory: Yes: Rhonchi (SCATTERED RHONCHI) Gastrointestinal: Yes: Normal Bowel Sounds, Soft Extremities: Yes: WNL Edema: No Labs: CBC, BMP 08/27/18 05:15 08/27/18 05:15 INR, PTT INR 2.07 (0.83-1.09) H 08/27/18 05:15 Problem List - Problems (1) Acute hypoxemic respiratory failure Code(s): J96.01 - ACUTE RESPIRATORY FAILURE WITH HYPOXIA Assessment/Plan Problem List - Problems (1) Hodgkin lymphoma Code(s): C81.90 - HODGKIN LYMPHOMA, UNSPECIFIED, UNSPECIFIED SITE (2) Hypoxia Code(s): R09.02 - HYPOXEMIA (3) Influenza A Code(s): J10.1 - FLU DUE TO OTH IDENT INFLUENZA VIRUS W OTH RESP MANIFEST (4) SIRS (systemic inflammatory response syndrome) Code(s): R65.10 - SIRS OF NON-INFECTIOUS ORIGIN W/O ACUTE ORGAN DYSFUNCTION (5) Tachycardia Code(s): R00.0 - TACHYCARDIA, UNSPECIFIED Assessment/Plan IMP ACUTE HYPOXEMIC RESPIRATORY FAILURE PNEUMONIA SIRS H/O HODGKIN LYMPHOMA S/P BMT,ON CHEMO PLAN ID F/U IV FLUID NEEDED NIPPV NEEDED SUPPLEMENTAL O2 STEROIDS ANTICOAGULATION MONITOR CXR MONITOR NENA WILSON
[2018-08-27 11:58] LABS: ANISOCYTOSIS 2+; MACROCYTOSIS 1+; OVALOCYTE 1+; PLATELET ESTIMATE NORMAL; TARGET CELLS 1+
--- NOTE | 2018-08-27 13:44 | PN ---
Progress Note, Physician History of Present Illness: AWAKE AND RESPONSIVE BREATHING NON-LABORED ON MASK LOW GRADE TEMP SL WBC ELEVATION NOTED - Current Medication List Current Medications: Active Medications Acetaminophen (Tylenol Oral Solution -) 650 mg PO Q6H PRN PRN Reason: FEVER Last Admin: 08/27/18 05:48 Dose: 650 mg Albuterol Sulfate (Ventolin 0.083% Nebulizer Soln -) 1 amp NEB Q6H PRN PRN Reason: SHORT OF BREATH/WHEEZING Last Admin: 08/27/18 05:31 Dose: 1 amp Artificial Tears (Artificial Tears) 1 drop OU Q6H PRN PRN Reason: DRY EYES Dexamethasone (Decadron Liquid -) 0.5 mg PO DAILY [facility] Last Admin: 08/27/18 10:54 Dose: 0.5 mg Gabapentin (Neurontin Oral Liquid -) 250 mg PEG TID [facility] Last Admin: 08/27/18 05:47 Dose: 250 mg Guaifenesin (Robitussin Dm -) 10 ml PO Q6H PRN PRN Reason: COUGH Last Admin: 08/26/18 14:58 Dose: 10 ml Insulin Aspart (Novolog Vial Sliding Scale -) 1 vial SQ [facility]; Protocol Last Admin: 08/27/18 12:16 Dose: Not Given Levetiracetam (Keppra Oral Solution -) 500 mg GT BID [facility] Last Admin: 08/27/18 10:55 Dose: 500 mg Lidocaine (Lidoderm Patch -) 1 patch TP DAILY [facility] Last Admin: 08/27/18 10:56 Dose: Not Given Loperamide HCl (Imodium Liquid -) 2 mg PEG DAILY [facility] Last Admin: 08/27/18 10:55 Dose: 2 mg Metoprolol Tartrate (Lopressor -) 25 mg PO BID [facility] Last Admin: 08/27/18 10:57 Dose: 25 mg Miscellaneous (Lidoderm Patch Removal) 1 each MC DAILY@2200 [facility] Last Admin: 08/26/18 22:50 Dose: 1 each Nitroglycerin (Nitrostat -) 0.4 mg SL Q5M PRN PRN Reason: FOR CHEST PAIN Non-Formulary Medication (Ruxolitinib Phosphate [Jakafi]) 5 mg GT BID [facility] Last Admin: 08/27/18 10:57 Dose: 5 mg Oxycodone HCl (Roxicodone -) 5 mg PO Q6H PRN PRN Reason: PAIN LEVEL 7 - 10 Last Admin: 08/27/18 05:48 Dose: 5 mg Potassium Chloride (Potassium Chloride Oral Liquid) 40 meq GT DAILY [facility] Last Admin: 08/27/18 10:56 Dose: 40 meq Potassium Phos/Sodium Phos (Phos-Nak Packet -) 1 packet PO BID [facility] Last Admin: 08/27/18 10:57 Dose: 1 packet Ranitidine HCl (Zantac Oral Solution -) 150 mg PEG BID [facility] Last Admin: 08/27/18 10:55 Dose: 150 mg Warfarin Sodium (Coumadin -) 5 mg PO DAILY@1800 [facility] Last Admin: 08/26/18 18:00 Dose: 5 mg - Objective Vital Signs: Vital Signs Temperature 100 F H 08/27/18 10:00 Pulse Rate 109 H 08/27/18 10:00 Respiratory Rate 20 08/27/18 10:00 Blood Pressure 99/70 08/27/18 10:00 O2 Sat by Pulse Oximetry (%) 91 L 08/27/18 11:58 Constitutional: Yes: No Distress Eyes: Yes: Conjunctiva Clear Cardiovascular: Yes: Regular Rate and Rhythm, S1, S2 Respiratory: Yes: Diminished Gastrointestinal: Yes: Normal Bowel Sounds, Soft. No: Tenderness Labs: CBC, BMP 08/27/18 05:15 08/27/18 05:15 INR, PTT INR 2.07 (0.83-1.09) H 08/27/18 05:15 Assessment/Plan ACUTE INFLUENZA A S/P COURSE OF TAMIFLU BIBASILAR PNEUMONIA S/P ZOSYN LEUKOPENIA- RESOLVED LYMPHOMA OBSERVE OFF ANTIBIOTICS RECULTURE FOR RECURRENT TEMP PROGNOSIS GUARDED
[2018-08-27] MEDS ORDERED: PT OWN MED DRAWER 7, Y5N ONE ×2 (14:21→22:55)
[2018-08-27] MEDS: WARFARIN NA 5 MG TABLET (UD) PO SCH (17:36)
[2018-08-27] MEDS: guaiFENesin/D-METHORPHAN HB 10 ML UNIT-DOSE CUPS PO PRN (17:37)
--- NOTE | 2018-08-27 19:54 | PN ---
Progress Note, Physician Chief Complaint: SOB History of Present Illness: Continues to have SOB, denies chest pain. No acute events - Current Medication List Current Medications: Active Medications Acetaminophen (Tylenol Oral Solution -) 650 mg PO Q6H PRN PRN Reason: FEVER Last Admin: 08/27/18 05:48 Dose: 650 mg Albuterol Sulfate (Ventolin 0.083% Nebulizer Soln -) 1 amp NEB Q6H PRN PRN Reason: SHORT OF BREATH/WHEEZING Last Admin: 08/27/18 05:31 Dose: 1 amp Artificial Tears (Artificial Tears) 1 drop OU Q6H PRN PRN Reason: DRY EYES Dexamethasone (Decadron Liquid -) 0.5 mg PO DAILY [facility] Last Admin: 08/27/18 10:54 Dose: 0.5 mg Gabapentin (Neurontin Oral Liquid -) 250 mg PEG TID [facility] Last Admin: 08/27/18 14:36 Dose: 250 mg Guaifenesin (Robitussin Dm -) 10 ml PO Q6H PRN PRN Reason: COUGH Last Admin: 08/27/18 17:37 Dose: 10 ml Insulin Aspart (Novolog Vial Sliding Scale -) 1 vial SQ [facility]; Protocol Last Admin: 08/27/18 17:35 Dose: Not Given Levetiracetam (Keppra Oral Solution -) 500 mg GT BID [facility] Last Admin: 08/27/18 10:55 Dose: 500 mg Lidocaine (Lidoderm Patch -) 1 patch TP DAILY [facility] Last Admin: 08/27/18 10:56 Dose: Not Given Loperamide HCl (Imodium Liquid -) 2 mg PEG DAILY [facility] Last Admin: 08/27/18 10:55 Dose: 2 mg Metoprolol Tartrate (Lopressor -) 25 mg PO BID [facility] Last Admin: 08/27/18 10:57 Dose: 25 mg Miscellaneous (Lidoderm Patch Removal) 1 each MC DAILY@2200 [facility] Last Admin: 08/26/18 22:50 Dose: 1 each Nitroglycerin (Nitrostat -) 0.4 mg SL Q5M PRN PRN Reason: FOR CHEST PAIN Non-Formulary Medication (Ruxolitinib Phosphate [Jakafi]) 5 mg GT BID [facility] Last Admin: 08/27/18 10:57 Dose: 5 mg Oxycodone HCl (Roxicodone -) 5 mg PO Q6H PRN PRN Reason: PAIN LEVEL 7 - 10 Last Admin: 08/27/18 18:29 Dose: 5 mg Potassium Chloride (Potassium Chloride Oral Liquid) 40 meq GT DAILY [facility] Last Admin: 08/27/18 10:56 Dose: 40 meq Potassium Phos/Sodium Phos (Phos-Nak Packet -) 1 packet PO BID [facility] Last Admin: 08/27/18 10:57 Dose: 1 packet Ranitidine HCl (Zantac Oral Solution -) 150 mg PEG BID [facility] Last Admin: 08/27/18 10:55 Dose: 150 mg Warfarin Sodium (Coumadin -) 5 mg PO DAILY@1800 [facility] Last Admin: 08/27/18 17:36 Dose: 5 mg - Objective Vital Signs: Vital Signs Temperature 98.3 F 08/27/18 14:20 Pulse Rate 108 H 08/27/18 14:20 Respiratory Rate 16 08/27/18 14:20 Blood Pressure 114/78 08/27/18 14:20 O2 Sat by Pulse Oximetry (%) 91 L 08/27/18 11:58 Constitutional: Yes: Calm Eyes: Yes: Conjunctiva Clear Cardiovascular: Yes: Regular Rate and Rhythm Respiratory: Yes: Regular, SOB (congested) Gastrointestinal: Yes: Normal Bowel Sounds, Soft Extremities: Yes: WNL Edema: No Labs: CBC, BMP 08/27/18 05:15 08/27/18 05:15 INR, PTT INR 2.07 (0.83-1.09) H 08/27/18 05:15 Assessment/Plan 37F, SNF resident, with hx CVA, on warfarin, HL s/p allogeneic transplant in 2014, followed at [facility] (Dr. 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 s/p broad spectrum Abx and Tamiflu. Hospital course c/b respiratory decompensation, now improving. Also with Afib, bridging back to warfarin. C/w dex and Jakafi. Outpatient f/u with Dr. Tello.
[2018-08-27] MEDS: LIDOCAINE PATCH REMOVAL MC SCH (22:30)
[2018-08-28] MEDS: GABAPENTIN 250 MG/5 ML ORAL SOLUTION, 470 ML BOTTLE PEG SCH ×3 (05:27→21:17)
[2018-08-28 07:55] LABS: INR 1.87 (0.83-1.09); PROTHROMBIN TIME (PATIENT) 22.2 SEC (9.7-13.0)
[2018-08-28] MEDS ORDERED: PT OWN MED DRAWER 7, Y5N ONE ×3 (09:44→21:37)
[2018-08-28] MEDS: METOPROLOL TARTRATE 25 MG TABLET (FP) PO SCH ×2 (09:49→21:16)
[2018-08-28] MEDS: INSULIN SLIDING SCALE (NOVOLOG) 1 VIAL SQ SCH ×4 (09:49→21:35)
[2018-08-28] MEDS: oxyCODONE HCL 5 MG TABLET PO PRN ×2 (09:49→21:18)
[2018-08-28] MEDS: NAPH,MB-DB/K PH,MBDB POWDER PACKET PO SCH ×2 (09:50→21:16)
[2018-08-28] MEDS: POTASSIUM CHLORIDE ORAL LIQUID 20 MEQ/15 ML GT SCH (09:51)
[2018-08-28] MEDS: guaiFENesin/D-METHORPHAN HB 10 ML UNIT-DOSE CUPS PO PRN (09:51)
[2018-08-28] MEDS: DEXAMETHASONE LIQUID 0.5 MG/5 ML 240 ML BULK BOTTLE PO SCH (09:51)
[2018-08-28] MEDS: LOPERAMIDE HCL 1 MG/5 ML UNIT DOSE CUP PEG SCH (09:51)
[2018-08-28] MEDS: LIDOCAINE 5% TOPICAL PATCH TP SCH (09:52)
[2018-08-28] MEDS: RUXOLITINIB PHOSPHATE 5 MG GT SCH ×2 (09:52→21:17)
[2018-08-28] MEDS: RANITIDINE HCL 150 MG/10 ML UNIT-DOSE PEG SCH ×2 (09:52→21:16)
[2018-08-28] MEDS: levETIRAcetam 500 MG/5 ML ORAL SOLUTION (UNIT-DOSE CUPS) GT SCH ×2 (09:53→21:16)
--- NOTE | 2018-08-28 11:36 | PN ---
Progress Note, Physician - Current Medication List Current Medications: Active Medications Acetaminophen (Tylenol Oral Solution -) 650 mg PO Q6H PRN PRN Reason: FEVER Last Admin: 08/27/18 05:48 Dose: 650 mg Albuterol Sulfate (Ventolin 0.083% Nebulizer Soln -) 1 amp NEB Q6H PRN PRN Reason: SHORT OF BREATH/WHEEZING Last Admin: 08/27/18 05:31 Dose: 1 amp Artificial Tears (Artificial Tears) 1 drop OU Q6H PRN PRN Reason: DRY EYES Dexamethasone (Decadron Liquid -) 0.5 mg PO DAILY [facility] Last Admin: 08/28/18 09:51 Dose: 0.5 mg Gabapentin (Neurontin Oral Liquid -) 250 mg PEG TID [facility] Last Admin: 08/28/18 05:27 Dose: 250 mg Guaifenesin (Robitussin Dm -) 10 ml PO Q6H PRN PRN Reason: COUGH Last Admin: 08/28/18 09:51 Dose: 10 ml Insulin Aspart (Novolog Vial Sliding Scale -) 1 vial SQ [facility]; Protocol Last Admin: 08/28/18 09:49 Dose: Not Given Levetiracetam (Keppra Oral Solution -) 500 mg GT BID [facility] Last Admin: 08/28/18 09:53 Dose: 500 mg Lidocaine (Lidoderm Patch -) 1 patch TP DAILY [facility] Last Admin: 08/28/18 09:52 Dose: Not Given Loperamide HCl (Imodium Liquid -) 2 mg PEG DAILY [facility] Last Admin: 08/28/18 09:51 Dose: 2 mg Metoprolol Tartrate (Lopressor -) 25 mg PO BID [facility] Last Admin: 08/28/18 09:49 Dose: 25 mg Miscellaneous (Lidoderm Patch Removal) 1 each MC DAILY@2200 [facility] Last Admin: 08/27/18 22:30 Dose: 1 each Nitroglycerin (Nitrostat -) 0.4 mg SL Q5M PRN PRN Reason: FOR CHEST PAIN Non-Formulary Medication (Ruxolitinib Phosphate [Jakafi]) 5 mg GT BID [facility] Last Admin: 08/28/18 09:52 Dose: 5 mg Oxycodone HCl (Roxicodone -) 5 mg PO Q6H PRN PRN Reason: PAIN LEVEL 7 - 10 Last Admin: 08/28/18 09:49 Dose: 5 mg Potassium Chloride (Potassium Chloride Oral Liquid) 40 meq GT DAILY [facility] Last Admin: 08/28/18 09:51 Dose: 40 meq Potassium Phos/Sodium Phos (Phos-Nak Packet -) 1 packet PO BID [facility] Last Admin: 08/28/18 09:50 Dose: 1 packet Ranitidine HCl (Zantac Oral Solution -) 150 mg PEG BID [facility] Last Admin: 08/28/18 09:52 Dose: 150 mg Warfarin Sodium (Coumadin -) 5 mg PO DAILY@1800 [facility] Last Admin: 08/27/18 17:36 Dose: 5 mg - Objective Vital Signs: Vital Signs Temperature 98.4 F 08/28/18 10:00 Pulse Rate 92 H 08/28/18 10:00 Respiratory Rate 18 08/28/18 10:00 Blood Pressure 108/56 L 08/28/18 10:00 O2 Sat by Pulse Oximetry (%) 99 08/28/18 10:00 Cardiovascular: Yes: S1, S2 Respiratory: Yes: CTA Bilaterally, On Venti-Mask Gastrointestinal: Yes: Normal Bowel Sounds, Soft Labs: CBC, BMP 08/27/18 05:15 08/27/18 05:15 INR, PTT INR 1.87 (0.83-1.09) H 08/28/18 06:30 Assessment/Plan - Problems (1) Acute hypoxemic respiratory failure Assessment/Plan: completed abx course now on venti mask monitor oxygen saturation Code(s): J96.01 - ACUTE RESPIRATORY FAILURE WITH HYPOXIA (2) Influenza A Assessment/Plan: tamiflu completed off droplet precautions Code(s): J10.1 - FLU DUE TO OTH IDENT INFLUENZA VIRUS W OTH RESP MANIFEST (3) Hypokalemia Assessment/Plan: resolved Code(s): E87.6 - HYPOKALEMIA (4) Anticoagulant long-term use Assessment/Plan: hx of cva - on couamdin -INCREASE TO 6 monitor inr-- Code(s): Z79.01 - 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
--- NOTE | 2018-08-28 12:48 | PN ---
Progress Note, Physician History of Present Illness: PULMONARY ALERT,COMFORTABLE,ON VM 40%O2,LESS DYSPNEIC - Current Medication List Current Medications: Active Medications Acetaminophen (Tylenol Oral Solution -) 650 mg PO Q6H PRN PRN Reason: FEVER Last Admin: 08/27/18 05:48 Dose: 650 mg Albuterol Sulfate (Ventolin 0.083% Nebulizer Soln -) 1 amp NEB Q6H PRN PRN Reason: SHORT OF BREATH/WHEEZING Last Admin: 08/27/18 05:31 Dose: 1 amp Artificial Tears (Artificial Tears) 1 drop OU Q6H PRN PRN Reason: DRY EYES Dexamethasone (Decadron Liquid -) 0.5 mg PO DAILY [facility] Last Admin: 08/28/18 09:51 Dose: 0.5 mg Gabapentin (Neurontin Oral Liquid -) 250 mg PEG TID [facility] Last Admin: 08/28/18 05:27 Dose: 250 mg Guaifenesin (Robitussin Dm -) 10 ml PO Q6H PRN PRN Reason: COUGH Last Admin: 08/28/18 09:51 Dose: 10 ml Insulin Aspart (Novolog Vial Sliding Scale -) 1 vial SQ [facility]; Protocol Last Admin: 08/28/18 12:00 Dose: Not Given Levetiracetam (Keppra Oral Solution -) 500 mg GT BID [facility] Last Admin: 08/28/18 09:53 Dose: 500 mg Lidocaine (Lidoderm Patch -) 1 patch TP DAILY [facility] Last Admin: 08/28/18 09:52 Dose: Not Given Loperamide HCl (Imodium Liquid -) 2 mg PEG DAILY [facility] Last Admin: 08/28/18 09:51 Dose: 2 mg Metoprolol Tartrate (Lopressor -) 25 mg PO BID [facility] Last Admin: 08/28/18 09:49 Dose: 25 mg Miscellaneous (Lidoderm Patch Removal) 1 each MC DAILY@2200 [facility] Last Admin: 08/27/18 22:30 Dose: 1 each Nitroglycerin (Nitrostat -) 0.4 mg SL Q5M PRN PRN Reason: FOR CHEST PAIN Non-Formulary Medication (Ruxolitinib Phosphate [Jakafi]) 5 mg GT BID [facility] Last Admin: 08/28/18 09:52 Dose: 5 mg Oxycodone HCl (Roxicodone -) 5 mg PO Q6H PRN PRN Reason: PAIN LEVEL 7 - 10 Last Admin: 08/28/18 09:49 Dose: 5 mg Potassium Chloride (Potassium Chloride Oral Liquid) 40 meq GT DAILY [facility] Last Admin: 08/28/18 09:51 Dose: 40 meq Potassium Phos/Sodium Phos (Phos-Nak Packet -) 1 packet PO BID [facility] Last Admin: 08/28/18 09:50 Dose: 1 packet Ranitidine HCl (Zantac Oral Solution -) 150 mg PEG BID [facility] Last Admin: 08/28/18 09:52 Dose: 150 mg Warfarin Sodium (Coumadin -) 6 mg PO DAILY@1800 [facility] - Objective Vital Signs: Vital Signs Temperature 98.4 F 08/28/18 10:00 Pulse Rate 92 H 08/28/18 10:00 Respiratory Rate 18 08/28/18 10:00 Blood Pressure 108/56 L 08/28/18 10:00 O2 Sat by Pulse Oximetry (%) 94 L 08/28/18 11:57 Constitutional: Yes: Calm, Thin Eyes: Yes: WNL HENT: Yes: WNL Neck: Yes: WNL Cardiovascular: Yes: Regular Rate and Rhythm, S1, S2 Respiratory: Yes: Rhonchi (FEW RHONCHI) Gastrointestinal: Yes: Normal Bowel Sounds, Soft Extremities: Yes: WNL Edema: No Labs: CBC, BMP 08/27/18 05:15 Problem List - Problems (1) Acute hypoxemic respiratory failure Code(s): J96.01 - ACUTE RESPIRATORY FAILURE WITH HYPOXIA Assessment/Plan Problem List - Problems (1) Hodgkin lymphoma Code(s): C81.90 - HODGKIN LYMPHOMA, UNSPECIFIED, UNSPECIFIED SITE (2) Hypoxia Code(s): R09.02 - HYPOXEMIA (3) Influenza A Code(s): J10.1 - FLU DUE TO OTH IDENT INFLUENZA VIRUS W OTH RESP MANIFEST (4) SIRS (systemic inflammatory response syndrome) Code(s): R65.10 - SIRS OF NON-INFECTIOUS ORIGIN W/O ACUTE ORGAN DYSFUNCTION (5) Tachycardia Code(s): R00.0 - TACHYCARDIA, UNSPECIFIED Assessment/Plan IMP ACUTE HYPOXEMIC RESPIRATORY FAILURE IMPROVING PNEUMONIA SIRS H/O HODGKIN LYMPHOMA S/P BMT,ON CHEMO PLAN IV FLUID NEEDED NIPPV NEEDED SUPPLEMENTAL O2 STEROIDS ANTICOAGULATION MONITOR CXR MONITOR NENA WILSON
[2018-08-28] MEDS: WARFARIN NA 3 MG TABLET PO SCH (18:32)
--- NOTE | 2018-08-28 19:22 | PN ---
Progress Note, Physician Chief Complaint: SOB History of Present Illness: Less SOB today. No acute events - Current Medication List Current Medications: Active Medications Acetaminophen (Tylenol Oral Solution -) 650 mg PO Q6H PRN PRN Reason: FEVER Last Admin: 08/27/18 05:48 Dose: 650 mg Albuterol Sulfate (Ventolin 0.083% Nebulizer Soln -) 1 amp NEB Q6H PRN PRN Reason: SHORT OF BREATH/WHEEZING Last Admin: 08/27/18 05:31 Dose: 1 amp Artificial Tears (Artificial Tears) 1 drop OU Q6H PRN PRN Reason: DRY EYES Dexamethasone (Decadron Liquid -) 0.5 mg PO DAILY [facility] Last Admin: 08/28/18 09:51 Dose: 0.5 mg Gabapentin (Neurontin Oral Liquid -) 250 mg PEG TID [facility] Last Admin: 08/28/18 14:34 Dose: 250 mg Guaifenesin (Robitussin Dm -) 10 ml PO Q6H PRN PRN Reason: COUGH Last Admin: 08/28/18 09:51 Dose: 10 ml Insulin Aspart (Novolog Vial Sliding Scale -) 1 vial SQ [facility]; Protocol Last Admin: 08/28/18 18:28 Dose: Not Given Levetiracetam (Keppra Oral Solution -) 500 mg GT BID [facility] Last Admin: 08/28/18 09:53 Dose: 500 mg Lidocaine (Lidoderm Patch -) 1 patch TP DAILY [facility] Last Admin: 08/28/18 09:52 Dose: Not Given Loperamide HCl (Imodium Liquid -) 2 mg PEG DAILY [facility] Last Admin: 08/28/18 09:51 Dose: 2 mg Metoprolol Tartrate (Lopressor -) 25 mg PO BID [facility] Last Admin: 08/28/18 09:49 Dose: 25 mg Miscellaneous (Lidoderm Patch Removal) 1 each MC DAILY@2200 [facility] Last Admin: 08/27/18 22:30 Dose: 1 each Nitroglycerin (Nitrostat -) 0.4 mg SL Q5M PRN PRN Reason: FOR CHEST PAIN Non-Formulary Medication (Ruxolitinib Phosphate [Jakafi]) 5 mg GT BID [facility] Last Admin: 08/28/18 09:52 Dose: 5 mg Oxycodone HCl (Roxicodone -) 5 mg PO Q6H PRN PRN Reason: PAIN LEVEL 7 - 10 Last Admin: 08/28/18 09:49 Dose: 5 mg Potassium Chloride (Potassium Chloride Oral Liquid) 40 meq GT DAILY [facility] Last Admin: 08/28/18 09:51 Dose: 40 meq Potassium Phos/Sodium Phos (Phos-Nak Packet -) 1 packet PO BID [facility] Last Admin: 08/28/18 09:50 Dose: 1 packet Ranitidine HCl (Zantac Oral Solution -) 150 mg PEG BID [facility] Last Admin: 08/28/18 09:52 Dose: 150 mg Warfarin Sodium (Coumadin -) 6 mg PO DAILY@1800 [facility] Last Admin: 08/28/18 18:32 Dose: 6 mg - Objective Vital Signs: Vital Signs Temperature 98.1 F 08/28/18 13:20 Pulse Rate 87 08/28/18 13:20 Respiratory Rate 16 08/28/18 13:20 Blood Pressure 105/70 08/28/18 13:20 O2 Sat by Pulse Oximetry (%) 99 08/28/18 18:40 Constitutional: Yes: No Distress, Calm Eyes: Yes: Conjunctiva Clear Cardiovascular: Yes: Regular Rate and Rhythm Respiratory: Yes: Regular, CTA Bilaterally Gastrointestinal: Yes: Normal Bowel Sounds, Soft Edema: No Labs: CBC, BMP 08/27/18 05:15 08/27/18 05:15 INR, PTT INR 1.87 (0.83-1.09) H 08/28/18 06:30 Assessment/Plan 37F, SNF resident, with hx CVA, on warfarin, HL s/p allogeneic transplant in 2014, followed at [facility] (Dr. 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 s/p broad spectrum Abx and Tamiflu. Hospital course c/b respiratory decompensation, now improving. Also with Afib, bridging back to warfarin. C/w dex and Jakafi. Outpatient f/u with Dr. Tello.
[2018-08-28] MEDS: LIDOCAINE PATCH REMOVAL MC SCH (21:18)
[2018-08-29] MEDS: oxyCODONE HCL 5 MG TABLET PO PRN ×2 (06:17→12:04)
[2018-08-29] MEDS: GABAPENTIN 250 MG/5 ML ORAL SOLUTION, 470 ML BOTTLE PEG SCH ×3 (06:18→23:10)
[2018-08-29] MEDS: INSULIN SLIDING SCALE (NOVOLOG) 1 VIAL SQ SCH ×4 (06:18→23:04)
[2018-08-29 07:21] LABS: INR 2.44 (0.83-1.09)
[2018-08-29] MEDS ORDERED: PT OWN MED DRAWER 7, Y5N ONE ×3 (09:50→22:19)
[2018-08-29] MEDS: POTASSIUM CHLORIDE ORAL LIQUID 20 MEQ/15 ML GT SCH (10:02)
[2018-08-29] MEDS: METOPROLOL TARTRATE 25 MG TABLET (FP) PO SCH ×2 (10:02→23:10)
[2018-08-29] MEDS: NAPH,MB-DB/K PH,MBDB POWDER PACKET PO SCH ×2 (10:03→23:10)
[2018-08-29] MEDS: LOPERAMIDE HCL 1 MG/5 ML UNIT DOSE CUP PEG SCH (10:04)
[2018-08-29] MEDS: levETIRAcetam 500 MG/5 ML ORAL SOLUTION (UNIT-DOSE CUPS) GT SCH ×2 (10:04→23:07)
[2018-08-29] MEDS: RANITIDINE HCL 150 MG/10 ML UNIT-DOSE PEG SCH ×2 (10:05→23:10)
[2018-08-29] MEDS: DEXAMETHASONE LIQUID 0.5 MG/5 ML 240 ML BULK BOTTLE PO SCH (10:05)
[2018-08-29] MEDS: RUXOLITINIB PHOSPHATE 5 MG GT SCH ×2 (10:06→23:11)
[2018-08-29] MEDS: LIDOCAINE 5% TOPICAL PATCH TP SCH (10:09)
[2018-08-29] MEDS: ALBUTEROL SO4 0.083% IH SOL 2.5 MG/3 ML VIAL.NEB. NEB PRN ×2 (10:10→13:05)
--- NOTE | 2018-08-29 11:05 | PN ---
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 Selected Entries 08/26/18 08/26/18 08/27/18 22:00 23:10 06:00 Breakfast Lunch Supper 50% 50% Temperature 98.5 F 08/27/18 08/27/18 08/27/18 08:45 10:00 12:15 Breakfast 25% Lunch 0 Supper Temperature 100 F H 08/27/18 08/27/18 08/27/18 14:20 18:00 22:00 Breakfast Lunch Supper 50% Temperature 98.3 F 98.4 F 08/28/18 08/28/18 08/28/18 05:31 10:00 13:20 Breakfast Lunch 0 Supper Temperature 97.8 F 98.4 F 98.1 F 08/28/18 08/29/18 08/29/18 18:00 02:00 06:57 Breakfast Lunch Supper 50% Temperature 98.1 F 97.3 F L 97.4 F L Laboratory Tests 08/26/18 08/27/18 05:00 05:15 WBC 8.4 10.5 H Pt was on VM, c/o SOB, now placed on BIPAP. Pt has been taking very little by mouth, refusing PEG feeding. MBS with oropharyngeal dysphagia. Started on Puree/nectar thick liquids. I would not upgrade Po diet yet with respiratory complaints. CXR 08/26 worse. Encourage temporary TF until medically improved. Trial Magic cup, ensure pudding/2 calHN
[2018-08-29 11:43] LABS: IGA IMMUNOGLOBULIN 41; IGG IMMUNOGLOBULIN 371; IGM IMMUNOGLOBULIN 57
--- NOTE | 2018-08-29 11:55 | PN ---
Progress Note, Physician History of Present Illness: PULMONARY PT PLACED BACK ON BIPAP SECONDARY TO DECREASED O2 SATS LOW 80s ON O2 MASK.PT CURRENTLY LOOKS MORE COMFORTABLE,LESS DYSPNEIC - Current Medication List Current Medications: Active Medications Acetaminophen (Tylenol Oral Solution -) 650 mg PO Q6H PRN PRN Reason: FEVER Last Admin: 08/27/18 05:48 Dose: 650 mg Albuterol Sulfate (Ventolin 0.083% Nebulizer Soln -) 1 amp NEB Q6H PRN PRN Reason: SHORT OF BREATH/WHEEZING Last Admin: 08/29/18 10:10 Dose: 1 amp Artificial Tears (Artificial Tears) 1 drop OU Q6H PRN PRN Reason: DRY EYES Dexamethasone (Decadron Liquid -) 0.5 mg PO DAILY [facility] Last Admin: 08/29/18 10:05 Dose: 0.5 mg Gabapentin (Neurontin Oral Liquid -) 250 mg PEG TID [facility] Last Admin: 08/29/18 06:18 Dose: 250 mg Guaifenesin (Robitussin Dm -) 10 ml PO Q6H PRN PRN Reason: COUGH Last Admin: 08/28/18 09:51 Dose: 10 ml Insulin Aspart (Novolog Vial Sliding Scale -) 1 vial SQ [facility]; Protocol Last Admin: 08/29/18 06:18 Dose: Not Given Levetiracetam (Keppra Oral Solution -) 500 mg GT BID [facility] Last Admin: 08/29/18 10:04 Dose: 500 mg Lidocaine (Lidoderm Patch -) 1 patch TP DAILY [facility] Last Admin: 08/29/18 10:09 Dose: Not Given Loperamide HCl (Imodium Liquid -) 2 mg PEG DAILY [facility] Last Admin: 08/29/18 10:04 Dose: 2 mg Metoprolol Tartrate (Lopressor -) 25 mg PO BID [facility] Last Admin: 08/29/18 10:02 Dose: 25 mg Miscellaneous (Lidoderm Patch Removal) 1 each MC DAILY@2200 [facility] Last Admin: 08/28/18 21:18 Dose: Not Given Nitroglycerin (Nitrostat -) 0.4 mg SL Q5M PRN PRN Reason: FOR CHEST PAIN Non-Formulary Medication (Ruxolitinib Phosphate [Jakafi]) 5 mg GT BID [facility] Last Admin: 08/29/18 10:06 Dose: 5 mg Oxycodone HCl (Roxicodone -) 5 mg PO Q6H PRN PRN Reason: PAIN LEVEL 7 - 10 Last Admin: 08/29/18 06:17 Dose: 5 mg Potassium Chloride (Potassium Chloride Oral Liquid) 40 meq GT DAILY [facility] Last Admin: 08/29/18 10:02 Dose: 40 meq Potassium Phos/Sodium Phos (Phos-Nak Packet -) 1 packet PO BID [facility] Last Admin: 08/29/18 10:03 Dose: 1 packet Ranitidine HCl (Zantac Oral Solution -) 150 mg PEG BID [facility] Last Admin: 08/29/18 10:05 Dose: 150 mg Warfarin Sodium (Coumadin -) 6 mg PO DAILY@1800 [facility] Last Admin: 08/28/18 18:32 Dose: 6 mg - Objective Vital Signs: Vital Signs Temperature 97.4 F L 08/29/18 06:57 Pulse Rate 82 08/29/18 06:57 Respiratory Rate 18 08/29/18 06:57 Blood Pressure 110/81 08/29/18 06:57 O2 Sat by Pulse Oximetry (%) 96 08/29/18 10:19 Constitutional: Yes: Well Nourished, Calm, Other (MILDLY DYSPNEIC) Eyes: Yes: WNL HENT: Yes: WNL Neck: Yes: WNL Cardiovascular: Yes: Regular Rate and Rhythm, S1, S2 Respiratory: Yes: On BiPap, Rhonchi (FEW RHONCHI HIRO) Gastrointestinal: Yes: Normal Bowel Sounds, Soft Extremities: Yes: WNL Edema: No Labs: CBC, BMP 08/27/18 05:15 08/27/18 05:15 INR, PTT INR 2.44 (0.83-1.09) H 08/29/18 06:30 Problem List - Problems (1) Acute hypoxemic respiratory failure Code(s): J96.01 - ACUTE RESPIRATORY FAILURE WITH HYPOXIA Assessment/Plan Problem List - Problems (1) Hodgkin lymphoma Code(s): C81.90 - HODGKIN LYMPHOMA, UNSPECIFIED, UNSPECIFIED SITE (2) Hypoxia Code(s): R09.02 - HYPOXEMIA (3) Influenza A Code(s): J10.1 - FLU DUE TO OTH IDENT INFLUENZA VIRUS W OTH RESP MANIFEST (4) SIRS (systemic inflammatory response syndrome) Code(s): R65.10 - SIRS OF NON-INFECTIOUS ORIGIN W/O ACUTE ORGAN DYSFUNCTION (5) Tachycardia Code(s): R00.0 - TACHYCARDIA, UNSPECIFIED Assessment/Plan IMP ACUTE HYPOXEMIC RESPIRATORY FAILURE IMPROVING PNEUMONIA SIRS H/O HODGKIN LYMPHOMA S/P BMT,ON CHEMO PLAN IV FLUID NEEDED NIPPV TO MAINTAIN SAT90% OR > SUPPLEMENTAL O2 STEROIDS ANTICOAGULATION CXR TODAY MONITOR NENA WILSON
--- NOTE | 2018-08-29 11:58 | PN ---
Progress Note, Physician Chief Complaint: Influenza A History of Present Illness: Previous notes and events reviewed awake and alert NAD continue to have SOB patient de-sat this morning to 85% on venti mask, RT called and placed on BiPAP with settings of 15/8, 14, 100%--patient states feeling better after being placed on BiPAP - Current Medication List Current Medications: Active Medications Acetaminophen (Tylenol Oral Solution -) 650 mg PO Q6H PRN PRN Reason: FEVER Last Admin: 08/27/18 05:48 Dose: 650 mg Albuterol Sulfate (Ventolin 0.083% Nebulizer Soln -) 1 amp NEB Q6H PRN PRN Reason: SHORT OF BREATH/WHEEZING Last Admin: 08/29/18 10:10 Dose: 1 amp Artificial Tears (Artificial Tears) 1 drop OU Q6H PRN PRN Reason: DRY EYES Dexamethasone (Decadron Liquid -) 0.5 mg PO DAILY [facility] Last Admin: 08/29/18 10:05 Dose: 0.5 mg Gabapentin (Neurontin Oral Liquid -) 250 mg PEG TID [facility] Last Admin: 08/29/18 06:18 Dose: 250 mg Guaifenesin (Robitussin Dm -) 10 ml PO Q6H PRN PRN Reason: COUGH Last Admin: 08/28/18 09:51 Dose: 10 ml Insulin Aspart (Novolog Vial Sliding Scale -) 1 vial SQ ACHS [facility]; Protocol Last Admin: 08/29/18 06:18 Dose: Not Given Levetiracetam (Keppra Oral Solution -) 500 mg GT BID [facility] Last Admin: 08/29/18 10:04 Dose: 500 mg Lidocaine (Lidoderm Patch -) 1 patch TP DAILY [facility] Last Admin: 08/29/18 10:09 Dose: Not Given Loperamide HCl (Imodium Liquid -) 2 mg PEG DAILY [facility] Last Admin: 08/29/18 10:04 Dose: 2 mg Metoprolol Tartrate (Lopressor -) 25 mg PO BID [facility] Last Admin: 08/29/18 10:02 Dose: 25 mg Miscellaneous (Lidoderm Patch Removal) 1 each MC DAILY@2200 [facility] Last Admin: 08/28/18 21:18 Dose: Not Given Nitroglycerin (Nitrostat -) 0.4 mg SL Q5M PRN PRN Reason: FOR CHEST PAIN Non-Formulary Medication (Ruxolitinib Phosphate [Jakafi]) 5 mg GT BID [facility] Last Admin: 08/29/18 10:06 Dose: 5 mg Oxycodone HCl (Roxicodone -) 5 mg PO Q6H PRN PRN Reason: PAIN LEVEL 7 - 10 Last Admin: 08/29/18 06:17 Dose: 5 mg Potassium Chloride (Potassium Chloride Oral Liquid) 40 meq GT DAILY [facility] Last Admin: 08/29/18 10:02 Dose: 40 meq Potassium Phos/Sodium Phos (Phos-Nak Packet -) 1 packet PO BID [facility] Last Admin: 08/29/18 10:03 Dose: 1 packet Ranitidine HCl (Zantac Oral Solution -) 150 mg PEG BID [facility] Last Admin: 08/29/18 10:05 Dose: 150 mg Warfarin Sodium (Coumadin -) 6 mg PO DAILY@1800 [facility] Last Admin: 08/28/18 18:32 Dose: 6 mg - Objective Vital Signs: Vital Signs Temperature 97.4 F L 08/29/18 06:57 Pulse Rate 82 08/29/18 06:57 Respiratory Rate 18 08/29/18 06:57 Blood Pressure 110/81 08/29/18 06:57 O2 Sat by Pulse Oximetry (%) 96 08/29/18 10:19 Constitutional: Yes: Anxious, Cachectic, Mild Distress Eyes: Yes: Conjunctiva Clear HENT: Yes: Atraumatic Cardiovascular: Yes: Tachycardia Respiratory: Yes: Diminished, On BiPap Gastrointestinal: Yes: Normal Bowel Sounds, Soft, Other (non tender) Genitourinary: Yes: Incontinence Musculoskeletal: Yes: Muscle Weakness Extremities: Yes: Cool (B/L lower extremity) Edema: No Neurological: Yes: Alert, Oriented Psychiatric: Yes: Alert, Oriented Labs: CBC, BMP 08/27/18 05:15 08/27/18 05:15 INR, PTT INR 2.44 (0.83-1.09) H 08/29/18 06:30 Microbiology 08/21/18 17:40 Blood - Peripheral Venous Blood Culture - Final NO GROWTH AFTER 5 DAYS INCUBATION 08/21/18 17:40 Blood - Peripheral Venous Blood Culture - Final NO GROWTH AFTER 5 DAYS INCUBATION 08/22/18 17:00 Stool Clostridium difficile Antigen (LORIN) - Final 08/22/18 17:00 Stool Clostridium difficile Toxin Assay - Final 08/12/18 17:40 Blood - Peripheral Venous Blood Culture - Final NO GROWTH AFTER 5 DAYS INCUBATION 08/12/18 17:40 Blood - Peripheral Venous Blood Culture - Final NO GROWTH AFTER 5 DAYS INCUBATION 08/12/18 22:00 Urine - Urine Clean Catch Urine Culture - Final 08/12/18 22:00 Urine For Antigen Detection Legionella Antigen - Final Problem List - Problems (1) Acute hypoxemic respiratory failure Assessment/Plan: -Pulmonary on board -O2 via ventimask 40% -continue with BiPAP as needed -monitor O2 sat closely -bronchodilators -keep SpO2 >90% Code(s): J96.01 - ACUTE RESPIRATORY FAILURE WITH HYPOXIA (2) Anticoagulant long-term use Assessment/Plan: -continue with coumadin -current INR 2.44 -daily INR with range 2-3 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 (3) Hodgkin lymphoma Assessment/Plan: -hematology/oncology on board -continue with Jakafi and decadron Code(s): C81.90 - HODGKIN LYMPHOMA, UNSPECIFIED, UNSPECIFIED SITE (4) Influenza A Assessment/Plan: -Influenza A positve -tamiflu completed Code(s): J10.1 - FLU DUE TO OTH IDENT INFLUENZA VIRUS W OTH RESP MANIFEST (5) SIRS (systemic inflammatory response syndrome) Assessment/Plan: -ID on board -completed course of IV ABT -currently afebrile -wbc 10.5 Code(s): R65.10 - SIRS OF NON-INFECTIOUS ORIGIN W/O ACUTE ORGAN DYSFUNCTION (6) Tachycardia Assessment/Plan: -continue tele monitoring -cardiology on board Code(s): R00.0 - TACHYCARDIA, UNSPECIFIED Assessment/Plan see problem list dvt ppx
[2018-08-29] MEDS: ACETAMINOPHEN 650 MG/20.3 ML ORAL SOLUTION (CUPS) PO PRN (13:57)
--- NOTE | 2018-08-29 18:00 | PN ---
Progress Note, Physician Chief Complaint: Persistent sinus tachycardia. Asked to see the patient again for persistent sinus tachycardia. The patient became more SOB with evidence of hypoxia, BiPAP restarted this afternoon. History of Present Illness: 37 year old woman with a PMHx of Hodgkins lymphoma s/p chemo s/p BMT x 2 2011 and 2013, CVA 04/2018 treated at [facility] with evidenc of blood clots in her heart therefore she has been on Warfarin but she is not aware of a diagnosis of Afib, admitted 08/12/2018 with pneumonia, influenza, complicated with respiratory distress and hypoxia. EKG 08/17/2018 showed afib with RVR. She was seen and followed by Drs. Carmona and Carlos Eduardo, last seen by Dr. Thibodeaux on 08/24/2018. Tele reviewed. It shows persistent sinus tachycardia 120-125 BPM. No recurrent atrial fibrillation. - Current Medication List Current Medications: Active Medications Acetaminophen (Tylenol Oral Solution -) 650 mg PO Q6H PRN PRN Reason: FEVER Last Admin: 08/29/18 13:57 Dose: 650 mg Albuterol Sulfate (Ventolin 0.083% Nebulizer Soln -) 1 amp NEB Q6H PRN PRN Reason: SHORT OF BREATH/WHEEZING Last Admin: 08/29/18 13:05 Dose: 1 amp Artificial Tears (Artificial Tears) 1 drop OU Q6H PRN PRN Reason: DRY EYES Dexamethasone (Decadron Liquid -) 0.5 mg PO DAILY [facility] Last Admin: 08/29/18 10:05 Dose: 0.5 mg Gabapentin (Neurontin Oral Liquid -) 250 mg PEG TID [facility] Last Admin: 08/29/18 13:57 Dose: 250 mg Guaifenesin (Robitussin Dm -) 10 ml PO Q6H PRN PRN Reason: COUGH Last Admin: 08/28/18 09:51 Dose: 10 ml Insulin Aspart (Novolog Vial Sliding Scale -) 1 vial SQ ACHS [facility]; Protocol Last Admin: 08/29/18 17:13 Dose: Not Given Levetiracetam (Keppra Oral Solution -) 500 mg GT BID [facility] Last Admin: 08/29/18 10:04 Dose: 500 mg Lidocaine (Lidoderm Patch -) 1 patch TP DAILY [facility] Last Admin: 08/29/18 10:09 Dose: Not Given Loperamide HCl (Imodium Liquid -) 2 mg PEG DAILY [facility] Last Admin: 08/29/18 10:04 Dose: 2 mg Metoprolol Tartrate (Lopressor -) 25 mg PO BID [facility] Last Admin: 08/29/18 10:02 Dose: 25 mg Miscellaneous (Lidoderm Patch Removal) 1 each MC DAILY@2200 [facility] Last Admin: 08/28/18 21:18 Dose: Not Given Nitroglycerin (Nitrostat -) 0.4 mg SL Q5M PRN PRN Reason: FOR CHEST PAIN Non-Formulary Medication (Ruxolitinib Phosphate [Jakafi]) 5 mg GT BID [facility] Last Admin: 08/29/18 10:06 Dose: 5 mg Oxycodone HCl (Roxicodone -) 5 mg PO Q6H PRN PRN Reason: PAIN LEVEL 7 - 10 Last Admin: 08/29/18 12:04 Dose: 5 mg Potassium Chloride (Potassium Chloride Oral Liquid) 40 meq GT DAILY [facility] Last Admin: 08/29/18 10:02 Dose: 40 meq Potassium Phos/Sodium Phos (Phos-Nak Packet -) 1 packet PO BID [facility] Last Admin: 08/29/18 10:03 Dose: 1 packet Ranitidine HCl (Zantac Oral Solution -) 150 mg PEG BID [facility] Last Admin: 08/29/18 10:05 Dose: 150 mg Warfarin Sodium (Coumadin -) 6 mg PO DAILY@1800 [facility] Last Admin: 08/28/18 18:32 Dose: 6 mg - Objective Vital Signs: Vital Signs Temperature 97.8 F 08/29/18 14:00 Pulse Rate 124 H 08/29/18 14:00 Respiratory Rate 18 08/29/18 14:00 Blood Pressure 108/77 08/29/18 14:00 O2 Sat by Pulse Oximetry (%) 97 08/29/18 16:15 General: Well developed. Chronic ill. Mild respiratory distress. Head: Normocephalic. Atraumatic, Neck: Supple. No JVD. No bruits. Heart: Normal S1, S2: Regular rhythm and tachycardia. Lungs: Symmetrical poor air entry with diminished BS and rhonchi. No crackle. No wheezing. Abdomen: Soft. Bowel sound positive. Non tender. No masses. Extremities: No edema. No clubbing or cyanosis. Labs: CBC, BMP 08/27/18 05:15 08/27/18 05:15 INR, PTT INR 2.44 (0.83-1.09) H 08/29/18 06:30 Assessment/Plan 37 year old woman with a PMHx of Hodgkins lymphoma s/p chemo s/p BMT x 2 2011 and 2013, CVA 04/2018 treated at [facility] with evidenc of blood clots in her heart therefore she has been on Warfarin but she is not aware of a diagnosis of Afib, admitted 08/12/2018 with pneumonia, influenza, complicated with respiratory distress and hypoxia. EKG 08/17/2018 showed afib with RVR. She was seen and followed by Drs. Carmona and Carlos Eduardo, last seen by Dr. Thibodeaux on 08/24/2018. Tele reviewed. It shows persistent sinus tachycardia 120-125 BPM. No recurrent atrial fibrillation. Sinus tachycardia likely driven by hypoxia, respiratory distress and anemia. May increase metoprolol to 25 mg q8h, monitor BP. May increase to 50 mg BID if BP remains stable after increase metoprolol to 25 mg q8h. Continue BiPAP Continue warfarin with target INR 2 - 3. Call us PRN
[2018-08-29] MEDS: WARFARIN NA 3 MG TABLET PO SCH (18:31)
[2018-08-29] MEDS: LIDOCAINE PATCH REMOVAL MC SCH (23:03)
[2018-08-30] MEDS: INSULIN SLIDING SCALE (NOVOLOG) 1 VIAL SQ SCH ×4 (06:30→22:53)
[2018-08-30 07:01] LABS: HEMOGLOBIN 8.8 GM/dL (10.7-15.3); MCH 25.6 pg (25.7-33.7); MCHC 32.6 g/dl (32.0-36.0); MEAN CELL VOLUME 78.6 fl (80-96); MEAN PLT VOLUME 8.6 fl (7.5-11.1); PLATELET COUNT 338 K/MM3 (134-434); RBC 3.43 M/mm3 (3.60-5.2); RDW 26.1 % (11.6-15.6); WHITE BLOOD COUNT 4.1 K/mm3 (4.0-10.0)
[2018-08-30 07:16] LABS: INR 3.38 (0.83-1.09); PROTHROMBIN TIME (PATIENT) 40.4 SEC (9.7-13.0)
[2018-08-30 07:44] LABS: ALK PHOS 216 U/L (45-117); ANION GAP 5 MMOL/L (8-16); BILIRUBIN,TOTAL 0.4 mg/dL (0.2-1); BLOOD UREA NITROGEN 17 mg/dL (7-18); CALCIUM 8.8 mg/dL (8.5-10.1); CHLORIDE 102 mmol/L (98-107); CO2 30 mmol/L (21-32); CREATININE < 0.2 mg/dL (0.55-1.3); GLUCOSE,RANDOM 90 mg/dL (74-106); POTASSIUM 3.9 mmol/L (3.5-5.1); SGOT/AST 19 U/L (15-37); SGPT/ALT 37 U/L (13-61); SODIUM 137 mmol/L (136-145); TOT PROT 6.3 g/dl (6.4-8.2)
[2018-08-30] MEDS: GABAPENTIN 250 MG/5 ML ORAL SOLUTION, 470 ML BOTTLE PEG SCH ×3 (07:44→22:52)
--- NOTE | 2018-08-30 08:47 | CONSULT ---
- Consultation REQUESTING PROVIDER: CONSULT REQUEST: We have been asked to surgically evaluate this patient forlower extremity coolness b/l. PCP:Nikki Bahena HISTORY OF PRESENT ILLNESS: The patient is a 38 yo female with a pmhx Hodgkins Lymphoma, CVA. She came to the ER with the complaints of headache and was positive for influenza. A consult was placed to the vascular service for concern of coolness to her b/l lower extremities. She doesn have some complains of tingling to her feet. The patient hasn't ambulated for the past 2 years. PMHx: hodgkins lymphoma, CVA on chemo therapy PSHx: Home Medications Medication Instructions Recorded Cholecalciferol (Vitamin D3) 5,000 unit PEG WEEKLY 08/12/18 [Vitamin D3] Dexamethasone [Decadron] 5 ml PO DAILY 08/12/18 Dextran/Hypromellose/Glycerin 1 drop OU TID 08/12/18 [Genteal Tears 0.1%-0.2%-0.3%] Erythromycin Oral Suspension 6.3 ml PEG TID 08/12/18 [Eryped Oral Suspension -] Famotidine 20 mg PEG BID 08/12/18 Gabapentin Liquid [Neurontin Oral 250 mg PEG TID 08/12/18 Liquid -] Hydrophilic Ointment [Dermafix] 1 applic TP BID 08/12/18 Lidocaine 5% Top. Ointment 1 applic TP BID 08/12/18 [Xylocaine 5% Top. Ointment] Loperamide HCl [Imodium A-D] 2 mg PEG DAILY 08/12/18 Potassium Chloride [Klor-Con] 20 meq GT DAILY 08/12/18 Ruxolitinib Phosphate [Jakafi] 5 mg GT BID 08/12/18 Warfarin Na [Coumadin] 2.5 mg PO ASDIR 08/12/18 Warfarin Sodium [Coumadin] 4 mg PO ASDIR 08/12/18 levETIRAcetam [levETIRAcetam ORAL 500 mg GT BID 08/12/18 SUSPENSION] Ondansetron HCl [Zofran] 4 mg PO TID PRN 08/13/18 Ruxolitinib Phosphate [Jakafi] 5 mg PO BID 08/13/18 Ruxolitinib Phosphate [Jakafi] 5 mg PO DAILY 08/24/18 Allergies Allergy/AdvReac Type Severity Reaction Status Date / Time bleomycin Allergy Verified 08/12/18 16:26 nut - unspecified Allergy Verified 08/12/18 16:27 peanut Allergy Verified 08/12/18 16:27 rivaroxaban Allergy Verified 08/12/18 16:27 REVIEW OF SYSTEMS: CONSTITUTIONAL: Present: fever, chills RESPIRATORY: Present: cough PHYSICAL EXAM: GENERAL: Awake, alert, and fully oriented, in no acute distress. Chest: Permacath in place to right IJ UPPER EXTREMITIES: 2+ pulses, warm, well-perfused. LOWER EXTREMITIES: 2+ DP pulses, warm, well-perfused. No calf tenderness. No ulcers, no evidence of cyanosis b/l toes/feet cool to touch equally. 4/5 dorsi/ plantar flexion b/l. b/l lower ext heels off the bed, pillow under the calves b/ l. No ulcers/skin break down noted. B/l lower ext and mid abd edema. NEUROLOGICAL: Normal speech, PSYCH: Cooperative. Good eye contact. Appropriate mood and affect. Vital Signs Temperature 98.4 F 08/30/18 01:24 Pulse Rate 81 08/30/18 01:24 Respiratory Rate 20 08/30/18 01:24 Blood Pressure 127/78 08/30/18 01:24 O2 Sat by Pulse Oximetry (%) 95 08/30/18 07:33 Lab Results WBC 4.1 K/mm3 (4.0-10.0) 08/30/18 06:00 RBC 3.43 M/mm3 (3.60-5.2) L 08/30/18 06:00 Hgb 8.8 GM/dL (10.7-15.3) L 08/30/18 06:00 Hct 27.0 % (32.4-45.2) L 08/30/18 06:00 MCV 78.6 fl (80-96) L 08/30/18 06:00 MCHC 32.6 g/dl (32.0-36.0) 08/30/18 06:00 RDW 26.1 % (11.6-15.6) H 08/30/18 06:00 Plt Count 338 K/MM3 (134-434) 08/30/18 06:00 Sodium 137 mmol/L (136-145) 08/30/18 06:00 Potassium 3.9 mmol/L (3.5-5.1) 08/30/18 06:00 Chloride 102 mmol/L (98-107) 08/30/18 06:00 Carbon Dioxide 30 mmol/L (21-32) 08/30/18 06:00 Anion Gap 5 MMOL/L (8-16) L 08/30/18 06:00 BUN 17 mg/dL (7-18) 08/30/18 06:00 Creatinine < 0.2 mg/dL (0.55-1.3) L 08/30/18 06:00 Random Glucose 90 mg/dL (74-106) 08/30/18 06:00 Calcium 8.8 mg/dL (8.5-10.1) 08/30/18 06:00 INR 3.38 (0.83-1.09) H 08/30/18 06:00 A/P: 38 yo female with hodgkins lymphoma, No evidence of acute lower ext ischemia -Continue current lower ext protective measures, heel off of bed -Reposition every two hours while in bed -Air mattress recommended -Use drawsheets and Trendelenburg when repositioning to reduce friction and shear -Manage incontinence via timely cleansing, use of appropriate incontinence disposables and use of barrier ointment to intact skin -Ensure adequate hydration/nutrition, supplementation per primary team Case D/w Dr. Mendez and he agrees with the plan. No surgical intervention is needed. Please reconsult as needed.
--- NOTE | 2018-08-30 09:52 | DS ---
Physical Examination Vital Signs: Vital Signs Temperature 98.4 F 08/30/18 01:24 Pulse Rate 81 08/30/18 01:24 Respiratory Rate 20 08/30/18 01:24 Blood Pressure 127/78 08/30/18 01:24 O2 Sat by Pulse Oximetry (%) 95 08/30/18 07:33 Cardiovascular: Yes: S1, S2 Respiratory: Yes: Regular, CTA Bilaterally Gastrointestinal: Yes: Normal Bowel Sounds, Soft Labs: CBC, BMP 08/30/18 06:00 08/30/18 06:00 Discharge Summary Reason For Visit: INFLUENZA DUE TO INFLUENZA VIRUS,TYPE A, HUMAN Current Active Problems Acute hypoxemic respiratory failure (Acute) Anticoagulant long-term use (Acute) Hodgkin lymphoma (Acute) Hypokalemia (Acute) Hypomagnesemia (Acute) Hypophosphatemia (Acute) Hypoxia (Acute) Influenza A (Acute) SIRS (systemic inflammatory response syndrome) (Acute) Tachycardia (Acute) Hospital Course: - Problems (1) Acute hypoxemic respiratory failure Assessment/Plan: -Pulmonary on board -O2 via ventimask 40% -continue with BiPAP as needed -monitor O2 sat closely -bronchodilators -keep SpO2 >90% Code(s): J96.01 - ACUTE RESPIRATORY FAILURE WITH HYPOXIA (2) Anticoagulant long-term use Assessment/Plan: -continue with coumadin -current INR 2.44 -daily INR with range 2-3 Code(s): Z79.01 - HALFWAY (CURRENT) USE OF ANTICOAGULANTS (3) Hodgkin lymphoma Assessment/Plan: -hematology/oncology on board -continue with Jakafi and decadron Code(s): C81.90 - HODGKIN LYMPHOMA, UNSPECIFIED, UNSPECIFIED SITE (4) Influenza A Assessment/Plan: -Influenza A positve -tamiflu completed Code(s): J10.1 - FLU DUE TO OTH IDENT INFLUENZA VIRUS W OTH RESP MANIFEST (5) SIRS (systemic inflammatory response syndrome) Assessment/Plan: -ID on board -completed course of IV ABT -currently afebrile -wbc 10.5 Code(s): R65.10 - SIRS OF NON-INFECTIOUS ORIGIN W/O ACUTE ORGAN DYSFUNCTION (6) Tachycardia Assessment/Plan: -continue tele monitoring -cardiology on board Code(s): R00.0 - TACHYCARDIA, UNSPECIFIED dc planning for snf--salas succi--needs bipap Condition: Stable - Instructions Referrals: Cj Floyd MD [Primary Care Provider] - Disposition: LONGTERM FACILITY - Home Medications Comprehensive Discharge Medication List: Ambulatory Orders Dextran/Hypromellose/Glycerin [Genteal Tears 0.1%-0.2%-0.3%] 1 drop OU TID 08/12 Famotidine 20 mg PEG BID 08/12/18 Gabapentin Liquid [Neurontin Oral Liquid -] 250 mg PEG TID 08/12/18 Lidocaine 5% Top. Ointment [Xylocaine 5% Top. Ointment -] 1 applic TP BID Loperamide HCl [Imodium A-D] 2 mg PEG DAILY 08/12/18 Potassium Chloride [Klor-Con] 20 meq GT DAILY 08/12/18 Ruxolitinib Phosphate [Jakafi] 5 mg GT BID 08/12/18 levETIRAcetam [levETIRAcetam ORAL SUSPENSION] 500 mg GT BID 08/12/18 Dexamethasone Liquid - [Decadron Liquid -] 0.5 mg PO DAILY ml 08/30/18 Guaifenesin Dm [Robitussin Dm -] 10 ml PO Q6H PRN cup 08/30/18 Insulin Sliding Scale [Novolog Vial Sliding Scale -] 1 vial SQ ACHS units 08/30 Metoprolol Tartrate [Lopressor -] 25 mg PO BID tablet 08/30/18 Naph,Mb-Db/K pH,Mbdb [PHOS-NaK PACKET -] 1 packet PO BID pow 08/30/18 Polyvinyl Alcohol [Artificial Tears] 1 drop OU Q6H PRN drops 08/30/18 Warfarin Na [Coumadin -] 6 mg PO DAILY@1800 tablet 08/30/18
[2018-08-30] MEDS: ALBUTEROL SO4 0.083% IH SOL 2.5 MG/3 ML VIAL.NEB. NEB PRN (10:12)
[2018-08-30] MEDS: POTASSIUM CHLORIDE ORAL LIQUID 20 MEQ/15 ML GT SCH (11:00)
[2018-08-30] MEDS: RUXOLITINIB PHOSPHATE 5 MG GT SCH ×2 (11:00→22:56)
[2018-08-30] MEDS: NAPH,MB-DB/K PH,MBDB POWDER PACKET PO SCH ×2 (11:00→22:51)
[2018-08-30] MEDS: DEXAMETHASONE LIQUID 0.5 MG/5 ML 240 ML BULK BOTTLE PO SCH (11:00)
[2018-08-30] MEDS: LOPERAMIDE HCL 1 MG/5 ML UNIT DOSE CUP PEG SCH (11:00)
[2018-08-30] MEDS: LIDOCAINE 5% TOPICAL PATCH TP SCH (11:00)
[2018-08-30] MEDS: levETIRAcetam 500 MG/5 ML ORAL SOLUTION (UNIT-DOSE CUPS) GT SCH ×2 (11:00→22:51)
[2018-08-30] MEDS: RANITIDINE HCL 150 MG/10 ML UNIT-DOSE PEG SCH ×2 (11:00→22:51)
[2018-08-30] MEDS: METOPROLOL TARTRATE 25 MG TABLET (FP) PO SCH ×2 (11:00→22:51)
[2018-08-30] MEDS ORDERED: PT OWN MED DRAWER 7, Y5N ONE ×4 (11:01→13:13)
[2018-08-30] MEDS: guaiFENesin/D-METHORPHAN HB 10 ML UNIT-DOSE CUPS PO PRN (11:22)
[2018-08-30] MEDS: oxyCODONE HCL 5 MG TABLET PO PRN (11:33)
--- NOTE | 2018-08-30 13:11 | PN ---
Progress Note (short form) - Note Progress Note: PULMONARY Alternating on/off BiPAP with ventimask. Still c/o shortness of breath. Vital Signs Period Temp Pulse Resp BP Sys/Nichols Pulse Ox Last 24 Hr 97.4 F-98.4 F 81-124 18-20 108-127/77-86 94-98 Gen: tachypneic with speaking Heart: RRR Lung: distant breath sounds Abd: soft, nontender Ext: trace edema CBC, BMP 08/30/18 06:00 08/30/18 06:00 Active Medications Acetaminophen (Tylenol Oral Solution -) 650 mg PO Q6H PRN PRN Reason: FEVER Last Admin: 08/29/18 13:57 Dose: 650 mg Albuterol Sulfate (Ventolin 0.083% Nebulizer Soln -) 1 amp NEB Q6H PRN PRN Reason: SHORT OF BREATH/WHEEZING Last Admin: 08/30/18 10:12 Dose: 1 amp Artificial Tears (Artificial Tears) 1 drop OU Q6H PRN PRN Reason: DRY EYES Dexamethasone (Decadron Liquid -) 0.5 mg PO DAILY [facility] Last Admin: 08/30/18 11:00 Dose: 0.5 mg Gabapentin (Neurontin Oral Liquid -) 250 mg PEG TID [facility] Last Admin: 08/30/18 07:44 Dose: Not Given Guaifenesin (Robitussin Dm -) 10 ml PO Q6H PRN PRN Reason: COUGH Last Admin: 08/30/18 11:22 Dose: 10 ml Insulin Aspart (Novolog Vial Sliding Scale -) 1 vial SQ ACHS [facility]; Protocol Last Admin: 08/30/18 11:46 Dose: Not Given Levetiracetam (Keppra Oral Solution -) 500 mg GT BID [facility] Last Admin: 08/30/18 11:00 Dose: 500 mg Lidocaine (Lidoderm Patch -) 1 patch TP DAILY [facility] Last Admin: 08/30/18 11:00 Dose: Not Given Loperamide HCl (Imodium Liquid -) 2 mg PEG DAILY [facility] Last Admin: 08/30/18 11:00 Dose: 2 mg Metoprolol Tartrate (Lopressor -) 25 mg PO BID [facility] Last Admin: 08/30/18 11:00 Dose: 25 mg Miscellaneous (Lidoderm Patch Removal) 1 each MC DAILY@2200 [facility] Last Admin: 08/29/18 23:03 Dose: Not Given Nitroglycerin (Nitrostat -) 0.4 mg SL Q5M PRN PRN Reason: FOR CHEST PAIN Non-Formulary Medication (Ruxolitinib Phosphate [Jakafi]) 5 mg GT BID [facility] Last Admin: 08/30/18 11:00 Dose: 5 mg Oxycodone HCl (Roxicodone -) 5 mg PO Q6H PRN PRN Reason: PAIN LEVEL 7 - 10 Last Admin: 08/30/18 11:33 Dose: 5 mg Potassium Chloride (Potassium Chloride Oral Liquid) 40 meq GT DAILY [facility] Last Admin: 08/30/18 11:00 Dose: 40 meq Potassium Phos/Sodium Phos (Phos-Nak Packet -) 1 packet PO BID [facility] Last Admin: 08/30/18 11:00 Dose: 1 packet Ranitidine HCl (Zantac Oral Solution -) 150 mg PEG BID [facility] Last Admin: 08/30/18 11:00 Dose: 150 mg Warfarin Sodium (Coumadin -) 6 mg PO DAILY@1800 [facility] Last Admin: 08/29/18 18:31 Dose: 6 mg A/P Acute Hypoxic Respiratory Failure Pneumonia Atelectasis Influenza A Hodgkins Lymphoma Paroxymsal Atrial Fibrillation - completed antibiotics - inhaled bronchodilators - O2 to keep SpO2 >90% - BiPAP to assist in work of breathing - aspiration precautions - inhaled bronchodilators - continue anticoagulation - continuous pulse oximetry monitoring
--- NOTE | 2018-08-30 15:02 | PN ---
Progress Note, SENIOR SCHEDULER - Note Progress Note: Selected Entries 08/29/18 08/29/18 08/29/18 02:00 06:57 10:00 Breakfast 50% Diet Tolerated Fair Lunch Temperature 97.3 F L 97.4 F L 97.9 F 08/29/18 08/29/18 08/29/18 14:00 18:00 22:00 Breakfast Diet Tolerated Refused Refused Lunch 0 Temperature 97.8 F 97.4 F L 97.8 F 08/30/18 08/30/18 08/30/18 01:24 10:00 14:00 Breakfast Diet Tolerated Refused Lunch Temperature 98.4 F 97.7 F 97.8 F Laboratory Tests 08/27/18 08/30/18 05:15 06:00 WBC 10.5 H 4.1 Alternating on/off BiPAP with ventimask. Still c/o shortness of breath. Poor PO acceptance, only taking water, per EXPLOSIVE SPECIALIST. Refusing PEG feedings and PO. F/u by Palliative care.
--- NOTE | 2018-08-30 16:51 | PN ---
Progress Note (short form) - Note Progress Note: Patient seen and examined On BIPAP Remains SOB and dyspneic Having difficulty with mask Tolerating apple sauce Last Vital Signs Temp Pulse Resp BP Pulse Ox 97.8 F 107 H 20 129/87 99 08/30/18 14:00 08/30/18 14:00 08/30/18 14:00 08/30/18 14:00 08/30/18 16:07 BIPAP Lungs- Rhonchi , diminished breath sounds Cor- RSR (Hx of AF) Soft abd LE edema CBC, BMP 08/30/18 06:00 08/30/18 06:00 Current Medications Generic Name Dose Route Start Last Admin Trade Name Freq PRN Reason Stop Dose Admin Acetaminophen 650 mg 08/26/18 12:11 08/29/18 13:57 Tylenol Oral Solution - PO 650 mg Q6H PRN Administration FEVER Albuterol Sulfate 1 amp 08/25/18 18:54 08/30/18 10:12 Ventolin 0.083% Nebulizer Soln - NEB 1 amp Q6H PRN Administration SHORT OF BREATH/WHEEZING Artificial Tears 1 drop 08/25/18 18:54 Artificial Tears OU Q6H PRN DRY EYES Dexamethasone 0.5 mg 08/26/18 10:00 08/30/18 11:00 Decadron Liquid - PO 0.5 mg DAILY [facility] Administration Gabapentin 250 mg 08/25/18 22:00 08/30/18 13:54 Neurontin Oral Liquid - PEG 250 mg TID [facility] Administration Guaifenesin 10 ml 08/25/18 18:54 08/30/18 11:22 Robitussin Dm - PO 10 ml Q6H PRN Administration COUGH Insulin Aspart 1 vial 08/25/18 22:00 08/30/18 11:46 Novolog Vial Sliding Scale - SQ Not Given ACHS [facility] Protocol Levetiracetam 500 mg 08/25/18 22:00 08/30/18 11:00 Keppra Oral Solution - GT 500 mg BID [facility] Administration Lidocaine 1 patch 08/26/18 10:00 08/30/18 11:00 Lidoderm Patch - TP Not Given DAILY [facility] Loperamide HCl 2 mg 08/26/18 10:00 08/30/18 11:00 Imodium Liquid - PEG 2 mg DAILY [facility] Administration Metoprolol Tartrate 25 mg 08/25/18 22:00 08/30/18 11:00 Lopressor - PO 25 mg BID [facility] Administration Miscellaneous 1 each 08/25/18 22:00 08/29/18 23:03 Lidoderm Patch Removal MC Not Given DAILY@2200 [facility] Nitroglycerin 0.4 mg 08/25/18 18:54 Nitrostat - SL Q5M PRN FOR CHEST PAIN Non-Formulary Medication 5 mg 08/25/18 22:00 08/30/18 11:00 Ruxolitinib Phosphate [Jakafi] GT 5 mg BID [facility] Administration Oxycodone HCl 5 mg 08/26/18 14:48 08/30/18 11:33 Roxicodone - PO 5 mg Q6H PRN Administration PAIN LEVEL 7 - 10 Potassium Chloride 40 meq 08/26/18 10:00 08/30/18 11:00 Potassium Chloride Oral Liquid GT 40 meq DAILY [facility] Administration Potassium Phos/Sodium Phos 1 packet 08/25/18 22:00 08/30/18 11:00 Phos-Nak Packet - PO 1 packet BID [facility] Administration Ranitidine HCl 150 mg 08/25/18 22:00 08/30/18 11:00 Zantac Oral Solution - PEG 150 mg BID [facility] Administration Warfarin Sodium 6 mg 08/28/18 18:00 08/29/18 18:31 Coumadin - PO 6 mg DAILY@1800 [facility] Administration IMPRESSION: Influenza Acute hypoxic respiratory failure Pneumonia 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 Anemia
[2018-08-30] MEDS ORDERED: WARFARIN NA 5 MG TABLET (UD) PO SCH (17:34)
[2018-08-30] MEDS: LIDOCAINE PATCH REMOVAL MC SCH (22:52)
[2018-08-31] MEDS: GABAPENTIN 250 MG/5 ML ORAL SOLUTION, 470 ML BOTTLE PEG SCH ×3 (06:56→22:41)
[2018-08-31] MEDS: INSULIN SLIDING SCALE (NOVOLOG) 1 VIAL SQ SCH ×4 (06:56→22:40)
[2018-08-31] MEDS: ALBUTEROL SO4 0.083% IH SOL 2.5 MG/3 ML VIAL.NEB. NEB PRN ×4 (07:28→21:18)
--- NOTE | 2018-08-31 09:58 | DS ---
Physical Examination Vital Signs: Vital Signs Temperature 97.8 F 08/30/18 22:00 Pulse Rate 94 H 08/30/18 22:00 Respiratory Rate 18 08/30/18 22:00 Blood Pressure 118/77 08/30/18 22:00 O2 Sat by Pulse Oximetry (%) 99 08/31/18 07:28 Cardiovascular: Yes: S1, S2 Respiratory: Yes: Regular, CTA Bilaterally Gastrointestinal: Yes: Normal Bowel Sounds, Soft Neurological: Yes: Pre-Existing Deficit Labs: CBC, BMP 08/30/18 06:00 08/30/18 06:00 Discharge Summary Reason For Visit: INFLUENZA DUE TO INFLUENZA VIRUS,TYPE A, HUMAN Current Active Problems Acute hypoxemic respiratory failure (Acute) Anticoagulant long-term use (Acute) Hodgkin lymphoma (Acute) Hypokalemia (Acute) Hypomagnesemia (Acute) Hypophosphatemia (Acute) Hypoxia (Acute) Influenza A (Acute) SIRS (systemic inflammatory response syndrome) (Acute) Tachycardia (Acute) Hospital Course: - Problems (1) Acute hypoxemic respiratory failure Assessment/Plan: -Pulmonary on board -O2 via ventimask 40% -continue with BiPAP as needed -monitor O2 sat closely -bronchodilators -keep SpO2 >90% Code(s): J96.01 - ACUTE RESPIRATORY FAILURE WITH HYPOXIA (2) Anticoagulant long-term use Assessment/Plan: -continue with coumadin -current INR 2.44 -daily INR with range 2-3 Code(s): Z79.01 - SKILLED NURSING (CURRENT) USE OF ANTICOAGULANTS (3) Hodgkin lymphoma Assessment/Plan: -hematology/oncology on board -continue with Jakafi and decadron Code(s): C81.90 - HODGKIN LYMPHOMA, UNSPECIFIED, UNSPECIFIED SITE (4) Influenza A Assessment/Plan: -Influenza A positve -tamiflu completed Code(s): J10.1 - FLU DUE TO OTH IDENT INFLUENZA VIRUS W OTH RESP MANIFEST (5) SIRS (systemic inflammatory response syndrome) Assessment/Plan: -ID on board -completed course of IV ABT -currently afebrile -wbc 10.5 Code(s): R65.10 - SIRS OF NON-INFECTIOUS ORIGIN W/O ACUTE ORGAN DYSFUNCTION (6) Tachycardia Assessment/Plan: -continue tele monitoring -cardiology on board Code(s): R00.0 - TACHYCARDIA, UNSPECIFIED dc planning for snf--salas succi--needs bipap Condition: Stable - Instructions Referrals: Cj Floyd MD [Primary Care Provider] - Disposition: [facility] - Home Medications Comprehensive Discharge Medication List: Ambulatory Orders Gabapentin Liquid [Neurontin Oral Liquid -] 250 mg PEG TID 08/12/18 Lidocaine 5% Top. Ointment [Xylocaine 5% Top. Ointment -] 1 applic TP BID Loperamide HCl [Imodium A-D] 2 mg PEG DAILY 08/12/18 Potassium Chloride [Klor-Con] 20 meq GT DAILY 08/12/18 Ruxolitinib Phosphate [Jakafi] 5 mg GT BID 08/12/18 levETIRAcetam [levETIRAcetam ORAL SUSPENSION] 500 mg GT BID 08/12/18 Dexamethasone Liquid - [Decadron Liquid -] 0.5 mg PO DAILY ml 08/30/18 Guaifenesin Dm [Robitussin Dm -] 10 ml PO Q6H PRN cup 08/30/18 Insulin Sliding Scale [Novolog Vial Sliding Scale -] 1 vial SQ ACHS units 08/30 Metoprolol Tartrate [Lopressor -] 25 mg PO BID tablet 08/30/18 Naph,Mb-Db/K pH,Mbdb [PHOS-NaK PACKET -] 1 packet PO BID pow 08/30/18 Polyvinyl Alcohol [Artificial Tears] 1 drop OU Q6H PRN drops 08/30/18 Warfarin Na [Coumadin -] 5 mg PO DAILY@1800 tablet 08/31/18
[2018-08-31] MEDS ORDERED: PT OWN MED DRAWER 7, Y5N ONE ×3 (11:08→22:59)
[2018-08-31] MEDS: DEXAMETHASONE LIQUID 0.5 MG/5 ML 240 ML BULK BOTTLE PO SCH (11:29)
[2018-08-31] MEDS: levETIRAcetam 500 MG/5 ML ORAL SOLUTION (UNIT-DOSE CUPS) GT SCH ×2 (11:29→22:42)
[2018-08-31] MEDS: LOPERAMIDE HCL 1 MG/5 ML UNIT DOSE CUP PEG SCH (11:30)
[2018-08-31] MEDS: RANITIDINE HCL 150 MG/10 ML UNIT-DOSE PEG SCH ×2 (11:30→22:41)
[2018-08-31] MEDS: POTASSIUM CHLORIDE ORAL LIQUID 20 MEQ/15 ML GT SCH (11:30)
[2018-08-31] MEDS: RUXOLITINIB PHOSPHATE 5 MG GT SCH ×2 (11:31→22:42)
[2018-08-31] MEDS: NAPH,MB-DB/K PH,MBDB POWDER PACKET PO SCH ×2 (11:31→22:41)
[2018-08-31] MEDS: METOPROLOL TARTRATE 25 MG TABLET (FP) PO SCH ×2 (11:31→22:41)
[2018-08-31] MEDS: LIDOCAINE 5% TOPICAL PATCH TP SCH (11:31)
[2018-08-31] MEDS: oxyCODONE HCL 5 MG TABLET PO PRN (11:32)
[2018-08-31] MEDS: guaiFENesin/D-METHORPHAN HB 10 ML UNIT-DOSE CUPS PO PRN (11:35)
--- NOTE | 2018-08-31 12:31 | PN ---
Progress Note, Physician History of Present Illness: PULMONARY ALERT,ON VM,DYSPNEIC - Current Medication List Current Medications: Active Medications Acetaminophen (Tylenol Oral Solution -) 650 mg PO Q6H PRN PRN Reason: FEVER Last Admin: 08/29/18 13:57 Dose: 650 mg Albuterol Sulfate (Ventolin 0.083% Nebulizer Soln -) 1 amp NEB Q6H PRN PRN Reason: SHORT OF BREATH/WHEEZING Last Admin: 08/31/18 12:13 Dose: 1 amp Artificial Tears (Artificial Tears) 1 drop OU Q6H PRN PRN Reason: DRY EYES Dexamethasone (Decadron Liquid -) 0.5 mg PO DAILY [facility] Last Admin: 08/31/18 11:29 Dose: 0.5 mg Gabapentin (Neurontin Oral Liquid -) 250 mg PEG TID [facility] Last Admin: 08/31/18 06:56 Dose: Not Given Guaifenesin (Robitussin Dm -) 10 ml PO Q6H PRN PRN Reason: COUGH Last Admin: 08/31/18 11:35 Dose: 10 ml Insulin Aspart (Novolog Vial Sliding Scale -) 1 vial SQ [facility]; Protocol Last Admin: 08/31/18 11:32 Dose: Not Given Levetiracetam (Keppra Oral Solution -) 500 mg GT BID [facility] Last Admin: 08/31/18 11:29 Dose: 500 mg Lidocaine (Lidoderm Patch -) 1 patch TP DAILY [facility] Last Admin: 08/31/18 11:31 Dose: Not Given Loperamide HCl (Imodium Liquid -) 2 mg PEG DAILY [facility] Last Admin: 08/31/18 11:30 Dose: 2 mg Metoprolol Tartrate (Lopressor -) 25 mg PO BID [facility] Last Admin: 08/31/18 11:31 Dose: 25 mg Miscellaneous (Lidoderm Patch Removal) 1 each MC DAILY@2200 [facility] Last Admin: 08/30/18 22:52 Dose: Not Given Nitroglycerin (Nitrostat -) 0.4 mg SL Q5M PRN PRN Reason: FOR CHEST PAIN Non-Formulary Medication (Ruxolitinib Phosphate [Jakafi]) 5 mg GT BID [facility] Last Admin: 08/31/18 11:31 Dose: 5 mg Potassium Chloride (Potassium Chloride Oral Liquid) 40 meq GT DAILY [facility] Last Admin: 08/31/18 11:30 Dose: 40 meq Potassium Phos/Sodium Phos (Phos-Nak Packet -) 1 packet PO BID [facility] Last Admin: 08/31/18 11:31 Dose: 1 packet Ranitidine HCl (Zantac Oral Solution -) 150 mg PEG BID [facility] Last Admin: 08/31/18 11:30 Dose: 150 mg Warfarin Sodium (Coumadin -) 5 mg PO DAILY@1800 [facility] - Objective Vital Signs: Vital Signs Temperature 97.8 F 08/30/18 22:00 Pulse Rate 94 H 08/30/18 22:00 Respiratory Rate 18 08/30/18 22:00 Blood Pressure 118/77 08/30/18 22:00 O2 Sat by Pulse Oximetry (%) 99 08/31/18 07:28 Constitutional: Yes: Well Nourished, Calm, Other (DYAPNEIC) Eyes: Yes: WNL HENT: Yes: WNL Neck: Yes: WNL Cardiovascular: Yes: Regular Rate and Rhythm, S1, S2 Respiratory: Yes: Rhonchi (SCATTERED HIRO RHONCHI) Gastrointestinal: Yes: Normal Bowel Sounds, Soft Extremities: Yes: WNL Edema: Yes Edema: LLE: Trace, RLE: Trace Labs: CBC, BMP 08/30/18 06:00 Problem List - Problems (1) Acute hypoxemic respiratory failure Code(s): J96.01 - ACUTE RESPIRATORY FAILURE WITH HYPOXIA Assessment/Plan Problem List - Problems (1) Hodgkin lymphoma Code(s): C81.90 - HODGKIN LYMPHOMA, UNSPECIFIED, UNSPECIFIED SITE (2) Hypoxia Code(s): R09.02 - HYPOXEMIA (3) Influenza A Code(s): J10.1 - FLU DUE TO OTH IDENT INFLUENZA VIRUS W OTH RESP MANIFEST (4) SIRS (systemic inflammatory response syndrome) Code(s): R65.10 - SIRS OF NON-INFECTIOUS ORIGIN W/O ACUTE ORGAN DYSFUNCTION (5) Tachycardia Code(s): R00.0 - TACHYCARDIA, UNSPECIFIED Assessment/Plan IMP ACUTE HYPOXEMIC RESPIRATORY FAILURE PNEUMONIA SIRS H/O HODGKIN LYMPHOMA S/P BMT,ON CHEMO PLAN O2 NIPPV NEEDED TO MAINTAIN SAT90% OR > SUPPLEMENTAL O2 ANTICOAGULATION MONITOR NENA WILSON
--- NOTE | 2018-08-31 15:11 | PN ---
Progress Note (short form) - Note Progress Note: Patient seen and examined Episode of acute SOB in AM , currently comfortable on BIPAP Last Vital Signs Temp Pulse Resp BP Pulse Ox 97.8 F 98 H 18 100/77 96 08/31/18 10:00 08/31/18 10:00 08/31/18 10:00 08/31/18 10:00 08/31/18 12:28 HEENT: PATRICE, EOM Intact Cor: RSR, No murmurs, No gallops Lungs: diminished B.S. , poor inspiratory effort Abd: Soft, Normal bowel sounds, No organomegaly, feeding tube Ext:No significant edema Skin: No rashes, Integument intact CBC, BMP 08/30/18 06:00 08/30/18 06:00 Current Medications Generic Name Dose Route Start Last Admin Trade Name Freq PRN Reason Stop Dose Admin Acetaminophen 650 mg 08/26/18 12:11 08/29/18 13:57 Tylenol Oral Solution - PO 650 mg Q6H PRN Administration FEVER Albuterol Sulfate 1 amp 08/25/18 18:54 08/31/18 12:13 Ventolin 0.083% Nebulizer Soln - NEB 1 amp Q6H PRN Administration SHORT OF BREATH/WHEEZING Artificial Tears 1 drop 08/25/18 18:54 Artificial Tears OU Q6H PRN DRY EYES Dexamethasone 0.5 mg 08/26/18 10:00 08/31/18 11:29 Decadron Liquid - PO 0.5 mg DAILY [facility] Administration Gabapentin 250 mg 08/25/18 22:00 08/31/18 15:04 Neurontin Oral Liquid - PEG 250 mg TID [facility] Administration Guaifenesin 10 ml 08/25/18 18:54 08/31/18 11:35 Robitussin Dm - PO 10 ml Q6H PRN Administration COUGH Insulin Aspart 1 vial 08/25/18 22:00 08/31/18 11:32 Novolog Vial Sliding Scale - SQ Not Given ACHS [facility] Protocol Levetiracetam 500 mg 08/25/18 22:00 08/31/18 11:29 Keppra Oral Solution - GT 500 mg BID [facility] Administration Lidocaine 1 patch 08/26/18 10:00 08/31/18 11:31 Lidoderm Patch - TP Not Given DAILY [facility] Loperamide HCl 2 mg 08/26/18 10:00 08/31/18 11:30 Imodium Liquid - PEG 2 mg DAILY [facility] Administration Metoprolol Tartrate 25 mg 08/25/18 22:00 08/31/18 11:31 Lopressor - PO 25 mg BID [facility] Administration Miscellaneous 1 each 08/25/18 22:00 08/30/18 22:52 Lidoderm Patch Removal MC Not Given DAILY@2200 [facility] Nitroglycerin 0.4 mg 08/25/18 18:54 Nitrostat - SL Q5M PRN FOR CHEST PAIN Non-Formulary Medication 5 mg 08/25/18 22:00 08/31/18 11:31 Ruxolitinib Phosphate [Jakafi] GT 5 mg BID [facility] Administration Potassium Chloride 40 meq 08/26/18 10:00 08/31/18 11:30 Potassium Chloride Oral Liquid GT 40 meq DAILY [facility] Administration Potassium Phos/Sodium Phos 1 packet 08/25/18 22:00 08/31/18 11:31 Phos-Nak Packet - PO 1 packet BID [facility] Administration Ranitidine HCl 150 mg 08/25/18 22:00 08/31/18 11:30 Zantac Oral Solution - PEG 150 mg BID [facility] Administration Warfarin Sodium 5 mg 08/30/18 17:34 Coumadin - PO DAILY@1800 [facility] Impression: Influenza Acute hypoxic respiratory failure Pneumonia 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 Anemia-chronic disease
[2018-08-31 16:24] LABS: INR 3.71 (0.83-1.09); PROTHROMBIN TIME (PATIENT) 44.4 SEC (9.7-13.0)
[2018-08-31] MEDS: LIDOCAINE PATCH REMOVAL MC SCH (22:40)
[2018-08-31] MEDS: ACETAMINOPHEN 650 MG/20.3 ML ORAL SOLUTION (CUPS) PO PRN (22:42)
[2018-09-01] MEDS: INSULIN SLIDING SCALE (NOVOLOG) 1 VIAL SQ SCH ×4 (06:18→21:48)
[2018-09-01] MEDS: GABAPENTIN 250 MG/5 ML ORAL SOLUTION, 470 ML BOTTLE PEG SCH ×3 (06:18→21:43)
[2018-09-01] MEDS: ALBUTEROL SO4 0.083% IH SOL 2.5 MG/3 ML VIAL.NEB. NEB PRN ×4 (07:10→21:33)
[2018-09-01] MEDS: DEXAMETHASONE LIQUID 0.5 MG/5 ML 240 ML BULK BOTTLE PO SCH (09:43)
[2018-09-01] MEDS: NAPH,MB-DB/K PH,MBDB POWDER PACKET PO SCH ×2 (09:43→21:43)
[2018-09-01] MEDS: METOPROLOL TARTRATE 25 MG TABLET (FP) PO SCH ×2 (09:43→21:48)
[2018-09-01] MEDS: RANITIDINE HCL 150 MG/10 ML UNIT-DOSE PEG SCH ×2 (09:44→21:43)
[2018-09-01] MEDS: levETIRAcetam 500 MG/5 ML ORAL SOLUTION (UNIT-DOSE CUPS) GT SCH ×2 (09:44→21:43)
[2018-09-01] MEDS: LOPERAMIDE HCL 1 MG/5 ML UNIT DOSE CUP PEG SCH (09:45)
[2018-09-01] MEDS: RUXOLITINIB PHOSPHATE 5 MG GT SCH ×2 (09:45→21:49)
[2018-09-01] MEDS: POTASSIUM CHLORIDE ORAL LIQUID 20 MEQ/15 ML GT SCH (09:58)
[2018-09-01 10:03] LABS: PROTHROMBIN TIME (PATIENT) 53.4 SEC (9.7-13.0)
[2018-09-01] MEDS: LIDOCAINE 5% TOPICAL PATCH TP SCH (10:05)
[2018-09-01 10:31] LABS: INR 4.46 (0.83-1.09)
--- NOTE | 2018-09-01 13:11 | PN ---
Progress Note (short form) - Note Progress Note: PULMONARY Currently on ventimask 50% saturating well. Was not using her BiPAP overnight. States breathing is worst when waking up. Vital Signs Period Temp Pulse Resp BP Sys/Nichols Pulse Ox Last 24 Hr 97.7 F-98.5 F 87-103 18-18 96-117/67-74 96-100 Gen: less tachypneic Heart: RRR Lung: distant breath sounds Abd: soft, nontender Ext: trace edema CBC, BMP 08/30/18 06:00 08/30/18 06:00 Active Medications Acetaminophen (Tylenol Oral Solution -) 650 mg PO Q6H PRN PRN Reason: FEVER Last Admin: 08/31/18 22:42 Dose: 650 mg Albuterol Sulfate (Ventolin 0.083% Nebulizer Soln -) 1 amp NEB Q6H PRN PRN Reason: SHORT OF BREATH/WHEEZING Last Admin: 09/01/18 11:37 Dose: 1 amp Artificial Tears (Artificial Tears) 1 drop OU Q6H PRN PRN Reason: DRY EYES Dexamethasone (Decadron Liquid -) 0.5 mg PO DAILY [facility] Last Admin: 09/01/18 09:43 Dose: 0.5 mg Gabapentin (Neurontin Oral Liquid -) 250 mg PEG TID [facility] Last Admin: 09/01/18 06:18 Dose: Not Given Guaifenesin (Robitussin Dm -) 10 ml PO Q6H PRN PRN Reason: COUGH Last Admin: 08/31/18 11:35 Dose: 10 ml Insulin Aspart (Novolog Vial Sliding Scale -) 1 vial SQ [facility]; Protocol Last Admin: 09/01/18 11:55 Dose: Not Given Levetiracetam (Keppra Oral Solution -) 500 mg GT BID [facility] Last Admin: 09/01/18 09:44 Dose: 500 mg Lidocaine (Lidoderm Patch -) 1 patch TP DAILY [facility] Last Admin: 09/01/18 10:05 Dose: Not Given Loperamide HCl (Imodium Liquid -) 2 mg PEG DAILY [facility] Last Admin: 09/01/18 09:45 Dose: 2 mg Metoprolol Tartrate (Lopressor -) 25 mg PO BID [facility] Last Admin: 09/01/18 09:43 Dose: 25 mg Miscellaneous (Lidoderm Patch Removal) 1 each MC DAILY@2200 [facility] Last Admin: 08/31/18 22:40 Dose: Not Given Nitroglycerin (Nitrostat -) 0.4 mg SL Q5M PRN PRN Reason: FOR CHEST PAIN Non-Formulary Medication (Ruxolitinib Phosphate [Jakafi]) 5 mg GT BID [facility] Last Admin: 09/01/18 09:45 Dose: 5 mg Potassium Chloride (Potassium Chloride Oral Liquid) 40 meq GT DAILY [facility] Last Admin: 09/01/18 09:58 Dose: 40 meq Potassium Phos/Sodium Phos (Phos-Nak Packet -) 1 packet PO BID [facility] Last Admin: 09/01/18 09:43 Dose: 1 packet Ranitidine HCl (Zantac Oral Solution -) 150 mg PEG BID [facility] Last Admin: 09/01/18 09:44 Dose: 150 mg A/P Acute Hypoxic Respiratory Failure Pneumonia Atelectasis Influenza A Hodgkins Lymphoma Paroxymsal Atrial Fibrillation - completed antibiotics - inhaled bronchodilators - O2 to keep SpO2 >90% - BiPAP at night and PRN during day - incentive spirometry - aspiration precautions - inhaled bronchodilators - continue anticoagulation - continuous pulse oximetry monitoring
--- NOTE | 2018-09-01 15:49 | PN ---
Progress Note, Physician Chief Complaint: patient now on bipap was on venting mask in morning when i saw her refusing tube feeds bc it causes her to have diarhhea i explained to her margie have dietary see her to change the TF as she does need nutrition only eating apple sauce - Current Medication List Current Medications: Active Medications Acetaminophen (Tylenol Oral Solution -) 650 mg PO Q6H PRN PRN Reason: FEVER Last Admin: 08/31/18 22:42 Dose: 650 mg Albuterol Sulfate (Ventolin 0.083% Nebulizer Soln -) 1 amp NEB Q6H PRN PRN Reason: SHORT OF BREATH/WHEEZING Last Admin: 09/01/18 11:37 Dose: 1 amp Artificial Tears (Artificial Tears) 1 drop OU Q6H PRN PRN Reason: DRY EYES Dexamethasone (Decadron Liquid -) 0.5 mg PO DAILY [facility] Last Admin: 09/01/18 09:43 Dose: 0.5 mg Gabapentin (Neurontin Oral Liquid -) 250 mg PEG TID [facility] Last Admin: 09/01/18 06:18 Dose: Not Given Guaifenesin (Robitussin Dm -) 10 ml PO Q6H PRN PRN Reason: COUGH Last Admin: 08/31/18 11:35 Dose: 10 ml Insulin Aspart (Novolog Vial Sliding Scale -) 1 vial SQ [facility]; Protocol Last Admin: 09/01/18 11:55 Dose: Not Given Levetiracetam (Keppra Oral Solution -) 500 mg GT BID [facility] Last Admin: 09/01/18 09:44 Dose: 500 mg Lidocaine (Lidoderm Patch -) 1 patch TP DAILY [facility] Last Admin: 09/01/18 10:05 Dose: Not Given Loperamide HCl (Imodium Liquid -) 2 mg PEG DAILY [facility] Last Admin: 09/01/18 09:45 Dose: 2 mg Metoprolol Tartrate (Lopressor -) 25 mg PO BID [facility] Last Admin: 09/01/18 09:43 Dose: 25 mg Miscellaneous (Lidoderm Patch Removal) 1 each MC DAILY@2200 [facility] Last Admin: 08/31/18 22:40 Dose: Not Given Nitroglycerin (Nitrostat -) 0.4 mg SL Q5M PRN PRN Reason: FOR CHEST PAIN Non-Formulary Medication (Ruxolitinib Phosphate [Jakafi]) 5 mg GT BID [facility] Last Admin: 09/01/18 09:45 Dose: 5 mg Potassium Chloride (Potassium Chloride Oral Liquid) 40 meq GT DAILY [facility] Last Admin: 09/01/18 09:58 Dose: 40 meq Potassium Phos/Sodium Phos (Phos-Nak Packet -) 1 packet PO BID [facility] Last Admin: 09/01/18 09:43 Dose: 1 packet Ranitidine HCl (Zantac Oral Solution -) 150 mg PEG BID [facility] Last Admin: 09/01/18 09:44 Dose: 150 mg - Objective Vital Signs: Vital Signs Temperature 98.2 F 09/01/18 10:00 Pulse Rate 87 09/01/18 10:00 Respiratory Rate 18 09/01/18 10:00 Blood Pressure 117/67 09/01/18 10:00 O2 Sat by Pulse Oximetry (%) 98 09/01/18 10:00 Constitutional: Yes: Calm Cardiovascular: Yes: Regular Rate and Rhythm, S1, S2 Respiratory: Yes: On BiPap, Rhonchi Gastrointestinal: Yes: Normal Bowel Sounds, Soft Edema: No Neurological: Yes: Alert Labs: CBC, BMP 08/30/18 06:00 08/30/18 06:00 INR, PTT INR 4.46 (0.83-1.09) H* 09/01/18 06:45 Problem List - Problems (1) Acute hypoxemic respiratory failure Assessment/Plan: completed abx course bipap as needed durign day and 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-continously Code(s): J96.01 - ACUTE RESPIRATORY FAILURE WITH HYPOXIA (2) Influenza A Assessment/Plan: tamiflu completed off droplet precautions Code(s): J10.1 - FLU DUE TO OTH IDENT INFLUENZA VIRUS W OTH RESP MANIFEST (3) Hypokalemia Assessment/Plan: resolved Code(s): E87.6 - HYPOKALEMIA (4) Anticoagulant long-term use Assessment/Plan: hx of cva - on couamdin monitor inr-hold coumadin given increase inr Code(s): 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.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
[2018-09-01] MEDS ORDERED: PT OWN MED DRAWER 7, Y5N ONE (21:37)
[2018-09-01] MEDS: oxyCODONE HCL 5 MG TABLET PO PRN (21:43)
[2018-09-01] MEDS: LIDOCAINE PATCH REMOVAL MC SCH (21:48)
[2018-09-01] MEDS: ACETAMINOPHEN 650 MG/20.3 ML ORAL SOLUTION (CUPS) PO PRN (21:49)
[2018-09-02] MEDS: INSULIN SLIDING SCALE (NOVOLOG) 1 VIAL SQ SCH ×4 (06:17→22:12)
[2018-09-02] MEDS: GABAPENTIN 250 MG/5 ML ORAL SOLUTION, 470 ML BOTTLE PEG SCH ×3 (06:26→22:11)
[2018-09-02] MEDS: ALBUTEROL SO4 0.083% IH SOL 2.5 MG/3 ML VIAL.NEB. NEB PRN ×2 (06:37→20:29)
[2018-09-02 06:44] LABS: PROTHROMBIN TIME (PATIENT) 84.4 SEC (9.7-13.0)
[2018-09-02 07:16] LABS: INR 7.01 (0.83-1.09)
[2018-09-02 08:13] LABS: ALK PHOS 236 U/L (45-117); ANION GAP 7 MMOL/L (8-16); BILIRUBIN,TOTAL 0.4 mg/dL (0.2-1); BLOOD UREA NITROGEN 13 mg/dL (7-18); CALCIUM 8.9 mg/dL (8.5-10.1); CHLORIDE 105 mmol/L (98-107); CO2 28 mmol/L (21-32); CREATININE 0.2 mg/dL (0.55-1.3); GLUCOSE,RANDOM 92 mg/dL (74-106); MAGNESIUM 1.8 mg/dL (1.8-2.4); POTASSIUM 3.4 mmol/L (3.5-5.1); SGOT/AST 25 U/L (15-37); SGPT/ALT 35 U/L (13-61); SODIUM 140 mmol/L (136-145); TOT PROT 6.9 g/dl (6.4-8.2)
[2018-09-02] MEDS: POTASSIUM CHLORIDE ORAL LIQUID 20 MEQ/15 ML GT SCH (10:22)
[2018-09-02] MEDS: NAPH,MB-DB/K PH,MBDB POWDER PACKET PO SCH ×2 (10:22→22:11)
[2018-09-02] MEDS: LIDOCAINE 5% TOPICAL PATCH TP SCH (10:23)
[2018-09-02] MEDS: levETIRAcetam 500 MG/5 ML ORAL SOLUTION (UNIT-DOSE CUPS) GT SCH ×2 (10:23→22:11)
[2018-09-02] MEDS: DEXAMETHASONE LIQUID 0.5 MG/5 ML 240 ML BULK BOTTLE PO SCH (10:23)
[2018-09-02] MEDS: LOPERAMIDE HCL 1 MG/5 ML UNIT DOSE CUP PEG SCH (10:23)
[2018-09-02] MEDS: RANITIDINE HCL 150 MG/10 ML UNIT-DOSE PEG SCH ×2 (10:23→22:11)
[2018-09-02] MEDS: METOPROLOL TARTRATE 25 MG TABLET (FP) PO SCH ×2 (10:24→22:11)
[2018-09-02] MEDS: RUXOLITINIB PHOSPHATE 5 MG GT SCH ×2 (10:29→22:12)
[2018-09-02 13:37] LABS: PROTHROMBIN TIME (PATIENT) 69.1 SEC (9.7-13.0)
--- NOTE | 2018-09-02 13:47 | PN ---
Progress Note (short form) - Note Progress Note: Patient seen on the Telemetry unit. Breathing seems to have plateaued. Still requiring NIPPV for the majority of the day. Has been on 50% VM since 11 AM. NIPPV overnight. Intake & Output 08/30/18 08/31/18 09/01/18 09/02/18 23:59 23:59 23:59 23:59 Intake Total 1000 620 220 440 Output Total 200 0 Balance 1000 620 20 440 Last Vital Signs Temp Pulse Resp BP Pulse Ox 97.9 F 79 18 113/78 99 09/02/18 01:00 09/02/18 01:00 09/02/18 08:30 09/02/18 01:00 09/02/18 11:34 Active Medications Acetaminophen (Tylenol Oral Solution -) 650 mg PO Q6H PRN PRN Reason: FEVER Last Admin: 09/01/18 21:49 Dose: 650 mg Albuterol Sulfate (Ventolin 0.083% Nebulizer Soln -) 1 amp NEB Q6H PRN PRN Reason: SHORT OF BREATH/WHEEZING Last Admin: 09/02/18 06:37 Dose: 1 amp Amino Acids (Prosource No Carb Liquid Pkt) 30 ml PO BID@0800,1730 [facility] Artificial Tears (Artificial Tears) 1 drop OU Q6H PRN PRN Reason: DRY EYES Dexamethasone (Decadron Liquid -) 0.5 mg PO DAILY [facility] Last Admin: 09/02/18 10:23 Dose: 0.5 mg Gabapentin (Neurontin Oral Liquid -) 250 mg PEG TID [facility] Last Admin: 09/02/18 06:26 Dose: 250 mg Guaifenesin (Robitussin Dm -) 10 ml PO Q6H PRN PRN Reason: COUGH Last Admin: 08/31/18 11:35 Dose: 10 ml Insulin Aspart (Novolog Vial Sliding Scale -) 1 vial SQ ACHS [facility]; Protocol Last Admin: 09/02/18 12:19 Dose: Not Given Levetiracetam (Keppra Oral Solution -) 500 mg GT BID [facility] Last Admin: 09/02/18 10:23 Dose: 500 mg Lidocaine (Lidoderm Patch -) 1 patch TP DAILY [facility] Last Admin: 09/02/18 10:23 Dose: Not Given Loperamide HCl (Imodium Liquid -) 2 mg PEG DAILY [facility] Last Admin: 09/02/18 10:23 Dose: 2 mg Metoprolol Tartrate (Lopressor -) 25 mg PO BID [facility] Last Admin: 09/02/18 10:24 Dose: 25 mg Miscellaneous (Lidoderm Patch Removal) 1 each MC DAILY@2200 [facility] Last Admin: 09/01/18 21:48 Dose: Not Given Nitroglycerin (Nitrostat -) 0.4 mg SL Q5M PRN PRN Reason: FOR CHEST PAIN Non-Formulary Medication (Ruxolitinib Phosphate [Jakafi]) 5 mg GT BID [facility] Last Admin: 09/02/18 10:29 Dose: 5 mg Oxycodone HCl (Roxicodone -) 5 mg PO Q6H PRN PRN Reason: PAIN LEVEL 7 - 10 Last Admin: 09/01/18 21:43 Dose: 5 mg Potassium Chloride (Potassium Chloride Oral Liquid) 40 meq GT DAILY [facility] Last Admin: 09/02/18 10:22 Dose: 40 meq Potassium Phos/Sodium Phos (Phos-Nak Packet -) 1 packet PO BID [facility] Last Admin: 09/02/18 10:22 Dose: 1 packet Ranitidine HCl (Zantac Oral Solution -) 150 mg PEG BID [facility] Last Admin: 09/02/18 10:23 Dose: 150 mg Gen: Awake and alert, less tachypneic, mild breathlessness with speaking Heart: RRR Lung: distant breath sounds Abd: soft, nontender Ext: trace edema Intake & Output 08/30/18 08/31/18 09/01/18 09/02/18 23:59 23:59 23:59 23:59 Intake Total 1000 620 220 440 Output Total 200 0 Balance 1000 620 20 440 Last Vital Signs Temp Pulse Resp BP Pulse Ox 97.9 F 79 18 113/78 99 09/02/18 01:00 09/02/18 01:00 09/02/18 08:30 09/02/18 01:00 09/02/18 11:34 Active Medications Acetaminophen (Tylenol Oral Solution -) 650 mg PO Q6H PRN PRN Reason: FEVER Last Admin: 09/01/18 21:49 Dose: 650 mg Albuterol Sulfate (Ventolin 0.083% Nebulizer Soln -) 1 amp NEB Q6H PRN PRN Reason: SHORT OF BREATH/WHEEZING Last Admin: 09/02/18 06:37 Dose: 1 amp Amino Acids (Prosource No Carb Liquid Pkt) 30 ml PO BID@0800,1730 [facility] Artificial Tears (Artificial Tears) 1 drop OU Q6H PRN PRN Reason: DRY EYES Dexamethasone (Decadron Liquid -) 0.5 mg PO DAILY [facility] Last Admin: 09/02/18 10:23 Dose: 0.5 mg Gabapentin (Neurontin Oral Liquid -) 250 mg PEG TID [facility] Last Admin: 09/02/18 06:26 Dose: 250 mg Guaifenesin (Robitussin Dm -) 10 ml PO Q6H PRN PRN Reason: COUGH Last Admin: 08/31/18 11:35 Dose: 10 ml Insulin Aspart (Novolog Vial Sliding Scale -) 1 vial SQ [facility]; Protocol Last Admin: 09/02/18 12:19 Dose: Not Given Levetiracetam (Keppra Oral Solution -) 500 mg GT BID [facility] Last Admin: 09/02/18 10:23 Dose: 500 mg Lidocaine (Lidoderm Patch -) 1 patch TP DAILY [facility] Last Admin: 09/02/18 10:23 Dose: Not Given Loperamide HCl (Imodium Liquid -) 2 mg PEG DAILY [facility] Last Admin: 09/02/18 10:23 Dose: 2 mg Metoprolol Tartrate (Lopressor -) 25 mg PO BID [facility] Last Admin: 09/02/18 10:24 Dose: 25 mg Miscellaneous (Lidoderm Patch Removal) 1 each MC DAILY@2200 [facility] Last Admin: 09/01/18 21:48 Dose: Not Given Nitroglycerin (Nitrostat -) 0.4 mg SL Q5M PRN PRN Reason: FOR CHEST PAIN Non-Formulary Medication (Ruxolitinib Phosphate [Jakafi]) 5 mg GT BID [facility] Last Admin: 09/02/18 10:29 Dose: 5 mg Oxycodone HCl (Roxicodone -) 5 mg PO Q6H PRN PRN Reason: PAIN LEVEL 7 - 10 Last Admin: 09/01/18 21:43 Dose: 5 mg Potassium Chloride (Potassium Chloride Oral Liquid) 40 meq GT DAILY [facility] Last Admin: 09/02/18 10:22 Dose: 40 meq Potassium Phos/Sodium Phos (Phos-Nak Packet -) 1 packet PO BID [facility] Last Admin: 09/02/18 10:22 Dose: 1 packet Ranitidine HCl (Zantac Oral Solution -) 150 mg PEG BID [facility] Last Admin: 09/02/18 10:23 Dose: 150 mg A/P Acute Hypoxic Respiratory Failure Pneumonia Atelectasis Influenza A Hodgkins Lymphoma Paroxymsal Atrial Fibrillation - completed antibiotics - inhaled bronchodilators - O2 to keep SpO2 >90% - NIPPV QHS and PRN during day - incentive spirometry - aspiration precautions - inhaled bronchodilators - continue anticoagulation - continuous pulse oximetry monitoring - As the patient has been requiring NIPPV support for the majority of the day, she would be more appropriate for care in the LTAC. Very high risk of re- admission if she is sent to a SNF. - There is no Pulmonary contraindication for D/C to LTAC. Dr Ramos
[2018-09-02] MEDS ORDERED: PT OWN MED DRAWER 7, Y5N ONE ×2 (13:59→17:18)
[2018-09-02] MEDS: oxyCODONE HCL 5 MG TABLET PO PRN ×2 (14:03→22:27)
[2018-09-02] MEDS: guaiFENesin/D-METHORPHAN HB 10 ML UNIT-DOSE CUPS PO PRN (14:03)
--- NOTE | 2018-09-02 14:35 | PN ---
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 - Current Medication List Current Medications: Active Medications Acetaminophen (Tylenol Oral Solution -) 650 mg PO Q6H PRN PRN Reason: FEVER Last Admin: 09/01/18 21:49 Dose: 650 mg Albuterol Sulfate (Ventolin 0.083% Nebulizer Soln -) 1 amp NEB Q6H PRN PRN Reason: SHORT OF BREATH/WHEEZING Last Admin: 09/02/18 06:37 Dose: 1 amp Amino Acids (Prosource No Carb Liquid Pkt) 30 ml PO BID@0800,1730 [facility] Artificial Tears (Artificial Tears) 1 drop OU Q6H PRN PRN Reason: DRY EYES Dexamethasone (Decadron Liquid -) 0.5 mg PO DAILY [facility] Last Admin: 09/02/18 10:23 Dose: 0.5 mg Gabapentin (Neurontin Oral Liquid -) 250 mg PEG TID [facility] Last Admin: 09/02/18 14:12 Dose: 250 mg Guaifenesin (Robitussin Dm -) 10 ml PO Q6H PRN PRN Reason: COUGH Last Admin: 09/02/18 14:03 Dose: 10 ml Insulin Aspart (Novolog Vial Sliding Scale -) 1 vial SQ [facility]; Protocol Last Admin: 09/02/18 12:19 Dose: Not Given Levetiracetam (Keppra Oral Solution -) 500 mg GT BID [facility] Last Admin: 09/02/18 10:23 Dose: 500 mg Lidocaine (Lidoderm Patch -) 1 patch TP DAILY [facility] Last Admin: 09/02/18 10:23 Dose: Not Given Loperamide HCl (Imodium Liquid -) 2 mg PEG DAILY [facility] Last Admin: 09/02/18 10:23 Dose: 2 mg Metoprolol Tartrate (Lopressor -) 25 mg PO BID [facility] Last Admin: 09/02/18 10:24 Dose: 25 mg Miscellaneous (Lidoderm Patch Removal) 1 each MC DAILY@2200 [facility] Last Admin: 09/01/18 21:48 Dose: Not Given Nitroglycerin (Nitrostat -) 0.4 mg SL Q5M PRN PRN Reason: FOR CHEST PAIN Non-Formulary Medication (Ruxolitinib Phosphate [Jakafi]) 5 mg GT BID [facility] Last Admin: 09/02/18 10:29 Dose: 5 mg Oxycodone HCl (Roxicodone -) 5 mg PO Q6H PRN PRN Reason: PAIN LEVEL 7 - 10 Last Admin: 09/02/18 14:03 Dose: 5 mg Potassium Chloride (Potassium Chloride Oral Liquid) 40 meq GT DAILY [facility] Last Admin: 09/02/18 10:22 Dose: 40 meq Potassium Phos/Sodium Phos (Phos-Nak Packet -) 1 packet PO BID [facility] Last Admin: 09/02/18 10:22 Dose: 1 packet Ranitidine HCl (Zantac Oral Solution -) 150 mg PEG BID [facility] Last Admin: 09/02/18 10:23 Dose: 150 mg - Objective Vital Signs: Vital Signs Temperature 97.9 F 09/02/18 01:00 Pulse Rate 79 09/02/18 01:00 Respiratory Rate 18 09/02/18 08:30 Blood Pressure 113/78 09/02/18 01:00 O2 Sat by Pulse Oximetry (%) 99 09/02/18 11:34 Constitutional: Yes: Calm Cardiovascular: Yes: Regular Rate and Rhythm, S1, S2 Labs: CBC, BMP 08/30/18 06:00 09/02/18 05:30 INR, PTT INR 7.01 (0.83-1.09) H* 09/02/18 05:30 Problem List - Problems (1) Acute hypoxemic respiratory failure Assessment/Plan: completed abx course bipap as needed durign day and 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 oxygen 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-continously on vneti mask today Code(s): J96.01 - ACUTE RESPIRATORY FAILURE WITH HYPOXIA (2) Influenza A Assessment/Plan: completed tamiflu Code(s): J10.1 - FLU DUE TO OTH IDENT INFLUENZA VIRUS W OTH RESP MANIFEST (3) Hypokalemia Assessment/Plan: repleted Code(s): E87.6 - HYPOKALEMIA (4) Anticoagulant long-term use Assessment/Plan: hx of cva - on couamdin monitor inr-hold coumadin given increase inr repeat inr ordered for today Code(s): Z79.01 - USP (CURRENT) USE OF ANTICOAGULANTS (5) Hodgkin lymphoma Assessment/Plan: heme on board on jakafi and dexa Code(s): C81.90 - HODGKIN LYMPHOMA, UNSPECIFIED, UNSPECIFIED SITE (6) Hypomagnesemia Assessment/Plan: repeat labs Code(s): E83.42 - HYPOMAGNESEMIA (7) Hypophosphatemia Assessment/Plan: now improved Code(s): E83.39 - OTHER DISORDERS OF PHOSPHORUS METABOLISM
[2018-09-02 15:40] LABS: INR 5.75 (0.83-1.09)
[2018-09-02] MEDS ORDERED: PHYTONADIONE 10 MG/1 ML AMP SQ ONE (15:48)
[2018-09-02] MEDS: AMINO ACIDS/PROTEIN HYDROLYS 30 ML LIQUID.PKT PO SCH (16:46)
[2018-09-02] MEDS: LIDOCAINE PATCH REMOVAL MC SCH (22:11)
[2018-09-03] MEDS: GABAPENTIN 250 MG/5 ML ORAL SOLUTION, 470 ML BOTTLE PEG SCH ×3 (06:32→21:14)
[2018-09-03] MEDS: INSULIN SLIDING SCALE (NOVOLOG) 1 VIAL SQ SCH ×4 (06:36→21:15)
[2018-09-03 06:52] LABS: BASO % 1.4 % (0-2.0); EOS % 1.8 % (0-4.5); HEMATOCRIT 25.5 % (32.4-45.2); HEMOGLOBIN 8.3 GM/dL (10.7-15.3); LYMPH % 15.4 % (8-40); MCH 26.1 pg (25.7-33.7); MCHC 32.6 g/dl (32.0-36.0); MEAN CELL VOLUME 80.1 fl (80-96); MEAN PLT VOLUME 8.5 fl (7.5-11.1); MONO % 15.2 % (3.8-10.2); NEUT % 66.2 % (42.8-82.8); PLATELET COUNT 322 K/MM3 (134-434); RBC 3.19 M/mm3 (3.60-5.2); RDW 25.5 % (11.6-15.6); WHITE BLOOD COUNT 3.6 K/mm3 (4.0-10.0)
[2018-09-03] MEDS: ALBUTEROL SO4 0.083% IH SOL 2.5 MG/3 ML VIAL.NEB. NEB PRN ×2 (06:56→22:01)
[2018-09-03 07:02] LABS: INR 3.29 (0.83-1.09); PROTHROMBIN TIME (PATIENT) 39.3 SEC (9.7-13.0)
[2018-09-03 08:11] LABS: ALK PHOS 232 U/L (45-117); ANION GAP 6 MMOL/L (8-16); BILIRUBIN,TOTAL 0.4 mg/dL (0.2-1); BLOOD UREA NITROGEN 21 mg/dL (7-18); CALCIUM 8.5 mg/dL (8.5-10.1); CHLORIDE 104 mmol/L (98-107); CO2 29 mmol/L (21-32); CREATININE 0.2 mg/dL (0.55-1.3); GLUCOSE,RANDOM 109 mg/dL (74-106); MAGNESIUM 1.7 mg/dL (1.8-2.4); PHOSPHOROUS 3.8 mg/dL (2.5-4.9); POTASSIUM 3.9 mmol/L (3.5-5.1); SGOT/AST 23 U/L (15-37); SGPT/ALT 29 U/L (13-61); SODIUM 139 mmol/L (136-145); TOT PROT 6.2 g/dl (6.4-8.2)
[2018-09-03] MEDS ORDERED: PT OWN MED DRAWER 7, Y5N ONE ×2 (09:03→13:39)
[2018-09-03] MEDS: AMINO ACIDS/PROTEIN HYDROLYS 30 ML LIQUID.PKT PO SCH ×2 (09:12→16:38)
[2018-09-03] MEDS: POTASSIUM CHLORIDE ORAL LIQUID 20 MEQ/15 ML GT SCH (09:13)
[2018-09-03] MEDS: LIDOCAINE 5% TOPICAL PATCH TP SCH (09:14)
[2018-09-03] MEDS: NAPH,MB-DB/K PH,MBDB POWDER PACKET PO SCH ×2 (09:14→21:14)
[2018-09-03] MEDS: LOPERAMIDE HCL 1 MG/5 ML UNIT DOSE CUP PEG SCH (09:14)
[2018-09-03] MEDS: DEXAMETHASONE LIQUID 0.5 MG/5 ML 240 ML BULK BOTTLE PO SCH (09:14)
[2018-09-03] MEDS: METOPROLOL TARTRATE 25 MG TABLET (FP) PO SCH ×2 (09:14→21:15)
[2018-09-03] MEDS: RANITIDINE HCL 150 MG/10 ML UNIT-DOSE PEG SCH ×2 (09:16→21:14)
[2018-09-03] MEDS: levETIRAcetam 500 MG/5 ML ORAL SOLUTION (UNIT-DOSE CUPS) GT SCH ×2 (09:16→21:14)
[2018-09-03] MEDS: RUXOLITINIB PHOSPHATE 5 MG GT SCH ×2 (09:16→21:15)
[2018-09-03] MEDS: guaiFENesin/D-METHORPHAN HB 10 ML UNIT-DOSE CUPS PO PRN (09:23)
[2018-09-03] MEDS: oxyCODONE HCL 5 MG TABLET PO PRN ×2 (09:24→16:38)
[2018-09-03] MEDS: ACETAMINOPHEN 650 MG/20.3 ML ORAL SOLUTION (CUPS) PO PRN ×2 (09:24→16:39)
[2018-09-03 14:01] LABS: OVALOCYTE 1+; PLATELET ESTIMATE ADEQUATE; TARGET CELLS 1+; TEAR DROP CELLS 1+
[2018-09-03 14:02] LABS: ANISOCYTOSIS 2+; MACROCYTOSIS 1+
--- NOTE | 2018-09-03 14:48 | PN ---
Progress Note (short form) - Note Progress Note: PULMONARY Currently on ventimask 50% saturating well. Used BiPAP overnight. Vital Signs Period Temp Pulse Resp BP Sys/Nichols Pulse Ox Last 24 Hr 96.9 F-98.1 F 70-92 18-18 98-122/60-76 97-100 Gen: less tachypneic Heart: RRR Lung: distant breath sounds Abd: soft, nontender Ext: trace edema CBC, BMP 09/03/18 05:50 09/03/18 05:50 Active Medications Acetaminophen (Tylenol Oral Solution -) 650 mg PO Q6H PRN PRN Reason: FEVER Last Admin: 09/03/18 09:24 Dose: 650 mg Albuterol Sulfate (Ventolin 0.083% Nebulizer Soln -) 1 amp NEB Q6H PRN PRN Reason: SHORT OF BREATH/WHEEZING Last Admin: 09/03/18 06:56 Dose: 1 amp Amino Acids (Prosource No Carb Liquid Pkt) 30 ml PO BID@0800,1730 [facility] Last Admin: 09/03/18 09:12 Dose: 30 ml Artificial Tears (Artificial Tears) 1 drop OU Q6H PRN PRN Reason: DRY EYES Dexamethasone (Decadron Liquid -) 0.5 mg PO DAILY [facility] Last Admin: 09/03/18 09:14 Dose: 0.5 mg Gabapentin (Neurontin Oral Liquid -) 250 mg PEG TID [facility] Last Admin: 09/03/18 13:40 Dose: 250 mg Guaifenesin (Robitussin Dm -) 10 ml PO Q6H PRN PRN Reason: COUGH Last Admin: 09/03/18 09:23 Dose: 10 ml Insulin Aspart (Novolog Vial Sliding Scale -) 1 vial SQ ACHS [facility]; Protocol Last Admin: 09/03/18 11:50 Dose: Not Given Levetiracetam (Keppra Oral Solution -) 500 mg GT BID [facility] Last Admin: 09/03/18 09:16 Dose: 500 mg Lidocaine (Lidoderm Patch -) 1 patch TP DAILY [facility] Last Admin: 09/03/18 09:14 Dose: Not Given Loperamide HCl (Imodium Liquid -) 2 mg PEG DAILY [facility] Last Admin: 09/03/18 09:14 Dose: 2 mg Metoprolol Tartrate (Lopressor -) 25 mg PO BID [facility] Last Admin: 09/03/18 09:14 Dose: 25 mg Miscellaneous (Lidoderm Patch Removal) 1 each MC DAILY@2200 [facility] Last Admin: 09/02/18 22:11 Dose: Not Given Nitroglycerin (Nitrostat -) 0.4 mg SL Q5M PRN PRN Reason: FOR CHEST PAIN Non-Formulary Medication (Ruxolitinib Phosphate [Jakafi]) 5 mg GT BID [facility] Last Admin: 09/03/18 09:16 Dose: 5 mg Oxycodone HCl (Roxicodone -) 5 mg PO Q6H PRN PRN Reason: PAIN LEVEL 7 - 10 Last Admin: 09/03/18 09:24 Dose: 5 mg Potassium Chloride (Potassium Chloride Oral Liquid) 40 meq GT DAILY [facility] Last Admin: 09/03/18 09:13 Dose: 40 meq Potassium Phos/Sodium Phos (Phos-Nak Packet -) 1 packet PO BID [facility] Last Admin: 09/03/18 09:14 Dose: 1 packet Ranitidine HCl (Zantac Oral Solution -) 150 mg PEG BID [facility] Last Admin: 09/03/18 09:16 Dose: 150 mg A/P Acute Hypoxic Respiratory Failure Pneumonia Atelectasis Influenza A Hodgkins Lymphoma Paroxymsal Atrial Fibrillation - completed antibiotics - inhaled bronchodilators - O2 to keep SpO2 >90% - BiPAP at night and PRN during day - incentive spirometry - aspiration precautions - continue anticoagulation - continuous pulse oximetry monitoring
--- NOTE | 2018-09-03 16:20 | PN ---
Progress Note, Physician Chief Complaint: Influenza A+ SIRS History of Present Illness: Extremely lethargic Influenza + Seen by ID Finished Tamiflu and IV abx on Venti mask Tachycardia improved Tele monitoring Fevers improved - Current Medication List Current Medications: Active Medications Acetaminophen (Tylenol Oral Solution -) 650 mg PO Q6H PRN PRN Reason: FEVER Last Admin: 09/03/18 09:24 Dose: 650 mg Albuterol Sulfate (Ventolin 0.083% Nebulizer Soln -) 1 amp NEB Q6H PRN PRN Reason: SHORT OF BREATH/WHEEZING Last Admin: 09/03/18 06:56 Dose: 1 amp Amino Acids (Prosource No Carb Liquid Pkt) 30 ml PO BID@0800,1730 [facility] Last Admin: 09/03/18 09:12 Dose: 30 ml Artificial Tears (Artificial Tears) 1 drop OU Q6H PRN PRN Reason: DRY EYES Dexamethasone (Decadron Liquid -) 0.5 mg PO DAILY [facility] Last Admin: 09/03/18 09:14 Dose: 0.5 mg Gabapentin (Neurontin Oral Liquid -) 250 mg PEG TID [facility] Last Admin: 09/03/18 13:40 Dose: 250 mg Guaifenesin (Robitussin Dm -) 10 ml PO Q6H PRN PRN Reason: COUGH Last Admin: 09/03/18 09:23 Dose: 10 ml Insulin Aspart (Novolog Vial Sliding Scale -) 1 vial SQ [facility]; Protocol Last Admin: 09/03/18 11:50 Dose: Not Given Levetiracetam (Keppra Oral Solution -) 500 mg GT BID [facility] Last Admin: 09/03/18 09:16 Dose: 500 mg Lidocaine (Lidoderm Patch -) 1 patch TP DAILY [facility] Last Admin: 09/03/18 09:14 Dose: Not Given Loperamide HCl (Imodium Liquid -) 2 mg PEG DAILY [facility] Last Admin: 09/03/18 09:14 Dose: 2 mg Metoprolol Tartrate (Lopressor -) 25 mg PO BID [facility] Last Admin: 09/03/18 09:14 Dose: 25 mg Miscellaneous (Lidoderm Patch Removal) 1 each MC DAILY@2200 [facility] Last Admin: 09/02/18 22:11 Dose: Not Given Nitroglycerin (Nitrostat -) 0.4 mg SL Q5M PRN PRN Reason: FOR CHEST PAIN Non-Formulary Medication (Ruxolitinib Phosphate [Jakafi]) 5 mg GT BID [facility] Last Admin: 09/03/18 09:16 Dose: 5 mg Oxycodone HCl (Roxicodone -) 5 mg PO Q6H PRN PRN Reason: PAIN LEVEL 7 - 10 Last Admin: 09/03/18 09:24 Dose: 5 mg Potassium Chloride (Potassium Chloride Oral Liquid) 40 meq GT DAILY [facility] Last Admin: 09/03/18 09:13 Dose: 40 meq Potassium Phos/Sodium Phos (Phos-Nak Packet -) 1 packet PO BID [facility] Last Admin: 09/03/18 09:14 Dose: 1 packet Ranitidine HCl (Zantac Oral Solution -) 150 mg PEG BID [facility] Last Admin: 09/03/18 09:16 Dose: 150 mg - Objective Vital Signs: Vital Signs Temperature 96.9 F L 09/03/18 13:26 Pulse Rate 70 09/03/18 13:26 Respiratory Rate 18 09/03/18 13:26 Blood Pressure 98/60 09/03/18 13:26 O2 Sat by Pulse Oximetry (%) 100 09/03/18 10:00 Constitutional: Yes: Well Nourished, Calm, Mild Distress Cardiovascular: Yes: Regular Rate and Rhythm Respiratory: Yes: Regular Gastrointestinal: Yes: Normal Bowel Sounds, Soft Musculoskeletal: Yes: WNL Extremities: Yes: WNL Edema: No Peripheral Pulses WNL: Yes Neurological: Yes: Alert, Lethargy Psychiatric: Yes: Alert Labs: CBC, BMP 09/03/18 05:50 09/03/18 05:50 INR, PTT INR 3.29 (0.83-1.09) H 09/03/18 05:50 Problem List - Problems (1) Hypoxia Assessment/Plan: -Venti mask keep Spo2>90% -Pulmonary consult -bronchodilators -On small dose of Decadron, moniter lytes closely Code(s): R09.02 - HYPOXEMIA (2) Tachycardia Assessment/Plan: -IVF -telemetry monitoring Code(s): R00.0 - TACHYCARDIA, UNSPECIFIED (3) Influenza A Assessment/Plan: -Tamiflu complete -afebrile -ID consult -Tylenol for fever Code(s): J10.1 - FLU DUE TO OTH IDENT INFLUENZA VIRUS W OTH RESP MANIFEST (4) SIRS (systemic inflammatory response syndrome) Code(s): R65.10 - SIRS OF NON-INFECTIOUS ORIGIN W/O ACUTE ORGAN DYSFUNCTION (5) Hodgkin lymphoma Assessment/Plan: -Hematology/onc consult -Continue decadron -Jakafi Code(s): C81.90 - HODGKIN LYMPHOMA, UNSPECIFIED, UNSPECIFIED SITE (6) Anticoagulant long-term use Assessment/Plan: -On Warfarin due to hx of CVA -Monitor INR trend-warfrin on hold for today -INR goal 2-3 -daily INR's Code(s): Z79.01 - HALF-WAY (CURRENT) USE OF ANTICOAGULANTS Assessment/Plan See problem list DVT prophylaxis Needs LTAC, awaiting approval
--- NOTE | 2018-09-03 18:46 | PN ---
Progress Note, Physician Chief Complaint: SOB History of Present Illness: No new events. Wishes to be eating solid food - Current Medication List Current Medications: Active Medications Acetaminophen (Tylenol Oral Solution -) 650 mg PO Q6H PRN PRN Reason: FEVER Last Admin: 09/03/18 16:39 Dose: 650 mg Albuterol Sulfate (Ventolin 0.083% Nebulizer Soln -) 1 amp NEB Q6H PRN PRN Reason: SHORT OF BREATH/WHEEZING Last Admin: 09/03/18 06:56 Dose: 1 amp Amino Acids (Prosource No Carb Liquid Pkt) 30 ml PO BID@0800,1730 [facility] Last Admin: 09/03/18 16:38 Dose: 30 ml Artificial Tears (Artificial Tears) 1 drop OU Q6H PRN PRN Reason: DRY EYES Dexamethasone (Decadron Liquid -) 0.5 mg PO DAILY [facility] Last Admin: 09/03/18 09:14 Dose: 0.5 mg Gabapentin (Neurontin Oral Liquid -) 250 mg PEG TID [facility] Last Admin: 09/03/18 13:40 Dose: 250 mg Guaifenesin (Robitussin Dm -) 10 ml PO Q6H PRN PRN Reason: COUGH Last Admin: 09/03/18 09:23 Dose: 10 ml Insulin Aspart (Novolog Vial Sliding Scale -) 1 vial SQ [facility]; Protocol Last Admin: 09/03/18 16:34 Dose: Not Given Levetiracetam (Keppra Oral Solution -) 500 mg GT BID [facility] Last Admin: 09/03/18 09:16 Dose: 500 mg Lidocaine (Lidoderm Patch -) 1 patch TP DAILY [facility] Last Admin: 09/03/18 09:14 Dose: Not Given Loperamide HCl (Imodium Liquid -) 2 mg PEG DAILY [facility] Last Admin: 09/03/18 09:14 Dose: 2 mg Metoprolol Tartrate (Lopressor -) 25 mg PO BID [facility] Last Admin: 09/03/18 09:14 Dose: 25 mg Miscellaneous (Lidoderm Patch Removal) 1 each MC DAILY@2200 [facility] Last Admin: 09/02/18 22:11 Dose: Not Given Nitroglycerin (Nitrostat -) 0.4 mg SL Q5M PRN PRN Reason: FOR CHEST PAIN Non-Formulary Medication (Ruxolitinib Phosphate [Jakafi]) 5 mg GT BID [facility] Last Admin: 09/03/18 09:16 Dose: 5 mg Oxycodone HCl (Roxicodone -) 5 mg PO Q6H PRN PRN Reason: PAIN LEVEL 7 - 10 Last Admin: 09/03/18 16:38 Dose: 5 mg Potassium Chloride (Potassium Chloride Oral Liquid) 40 meq GT DAILY [facility] Last Admin: 09/03/18 09:13 Dose: 40 meq Potassium Phos/Sodium Phos (Phos-Nak Packet -) 1 packet PO BID [facility] Last Admin: 09/03/18 09:14 Dose: 1 packet Ranitidine HCl (Zantac Oral Solution -) 150 mg PEG BID [facility] Last Admin: 09/03/18 09:16 Dose: 150 mg - Objective Vital Signs: Vital Signs Temperature 98.1 F 09/03/18 16:40 Pulse Rate 71 09/03/18 16:40 Respiratory Rate 20 09/03/18 16:40 Blood Pressure 99/65 09/03/18 16:40 O2 Sat by Pulse Oximetry (%) 100 09/03/18 16:16 Constitutional: Yes: No Distress, Calm Cardiovascular: Yes: WNL Respiratory: Yes: Regular Gastrointestinal: Yes: Normal Bowel Sounds, Soft Edema: No Labs: CBC, BMP 09/03/18 05:50 09/03/18 05:50 INR, PTT INR 3.29 (0.83-1.09) H 09/03/18 05:50 Assessment/Plan 37F, SNF resident, with hx CVA, on warfarin, HL s/p allogeneic transplant in 2014, followed at [facility] (Dr. 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 s/p broad spectrum Abx and Tamiflu. Hospital course c/b respiratory decompensation, now improving. Also with Afib, on warfarin. C/w dex and Jakafi. O
[2018-09-03] MEDS: LIDOCAINE PATCH REMOVAL MC SCH (21:15)
[2018-09-04] MEDS: INSULIN SLIDING SCALE (NOVOLOG) 1 VIAL SQ SCH ×4 (06:21→21:48)
[2018-09-04] MEDS: GABAPENTIN 250 MG/5 ML ORAL SOLUTION, 470 ML BOTTLE PEG SCH ×3 (06:21→21:47)
[2018-09-04 06:58] LABS: BASO % 0.9 % (0-2.0); EOS % 1.6 % (0-4.5); HEMATOCRIT 25.5 % (32.4-45.2); HEMOGLOBIN 8.4 GM/dL (10.7-15.3); LYMPH % 17.3 % (8-40); MCH 26.1 pg (25.7-33.7); MEAN CELL VOLUME 79.2 fl (80-96); MEAN PLT VOLUME 8.7 fl (7.5-11.1); MONO % 15.6 % (3.8-10.2); NEUT % 64.6 % (42.8-82.8); PLATELET COUNT 331 K/MM3 (134-434); RBC 3.22 M/mm3 (3.60-5.2); RDW 25.9 % (11.6-15.6); WHITE BLOOD COUNT 3.6 K/mm3 (4.0-10.0)
[2018-09-04 07:08] LABS: INR 1.89 (0.83-1.09); PROTHROMBIN TIME (PATIENT) 22.5 SEC (9.7-13.0)
[2018-09-04] MEDS: levETIRAcetam 500 MG/5 ML ORAL SOLUTION (UNIT-DOSE CUPS) GT SCH ×2 (09:21→21:47)
[2018-09-04] MEDS: METOPROLOL TARTRATE 25 MG TABLET (FP) PO SCH ×2 (09:21→21:48)
[2018-09-04] MEDS: LIDOCAINE 5% TOPICAL PATCH TP SCH (09:21)
[2018-09-04] MEDS: RANITIDINE HCL 150 MG/10 ML UNIT-DOSE PEG SCH ×2 (09:21→21:48)
[2018-09-04] MEDS: DEXAMETHASONE LIQUID 0.5 MG/5 ML 240 ML BULK BOTTLE PO SCH (09:21)
[2018-09-04] MEDS: LOPERAMIDE HCL 1 MG/5 ML UNIT DOSE CUP PEG SCH (09:21)
[2018-09-04] MEDS: NAPH,MB-DB/K PH,MBDB POWDER PACKET PO SCH ×2 (09:21→21:48)
[2018-09-04] MEDS: AMINO ACIDS/PROTEIN HYDROLYS 30 ML LIQUID.PKT PO SCH ×2 (09:21→16:44)
[2018-09-04] MEDS: POTASSIUM CHLORIDE ORAL LIQUID 20 MEQ/15 ML GT SCH (09:22)
[2018-09-04] MEDS: RUXOLITINIB PHOSPHATE 5 MG GT SCH ×2 (09:22→21:48)
[2018-09-04] MEDS: ALBUTEROL SO4 0.083% IH SOL 2.5 MG/3 ML VIAL.NEB. NEB PRN ×2 (09:39→23:48)
--- NOTE | 2018-09-04 12:07 | PN ---
Progress Note (short form) - Note Progress Note: PULMONARY Placed back on BiPAP after 2 hours of ventimask today. Vital Signs Period Temp Pulse Resp BP Sys/Nichols Pulse Ox Last 24 Hr 96.9 F-98.1 F 63-82 18-20 98-121/60-83 96-100 Gen: less tachypneic Heart: RRR Lung: distant breath sounds Abd: soft, nontender Ext: trace edema CBC, BMP 09/04/18 06:10 09/03/18 05:50 Active Medications Acetaminophen (Tylenol Oral Solution -) 650 mg PO Q6H PRN PRN Reason: FEVER Last Admin: 09/03/18 16:39 Dose: 650 mg Albuterol Sulfate (Ventolin 0.083% Nebulizer Soln -) 1 amp NEB Q6H PRN PRN Reason: SHORT OF BREATH/WHEEZING Last Admin: 09/04/18 09:39 Dose: 1 amp Amino Acids (Prosource No Carb Liquid Pkt) 30 ml PO BID@0800,1730 [facility] Last Admin: 09/04/18 09:21 Dose: 30 ml Artificial Tears (Artificial Tears) 1 drop OU Q6H PRN PRN Reason: DRY EYES Dexamethasone (Decadron Liquid -) 0.5 mg PO DAILY [facility] Last Admin: 09/04/18 09:21 Dose: 0.5 mg Gabapentin (Neurontin Oral Liquid -) 250 mg PEG TID [facility] Last Admin: 09/04/18 06:21 Dose: Not Given Guaifenesin (Robitussin Dm -) 10 ml PO Q6H PRN PRN Reason: COUGH Last Admin: 09/03/18 09:23 Dose: 10 ml Insulin Aspart (Novolog Vial Sliding Scale -) 1 vial SQ ACHS [facility]; Protocol Last Admin: 09/04/18 06:21 Dose: Not Given Levetiracetam (Keppra Oral Solution -) 500 mg GT BID [facility] Last Admin: 09/04/18 09:21 Dose: 500 mg Lidocaine (Lidoderm Patch -) 1 patch TP DAILY [facility] Last Admin: 09/04/18 09:21 Dose: Not Given Loperamide HCl (Imodium Liquid -) 2 mg PEG DAILY [facility] Last Admin: 09/04/18 09:21 Dose: 2 mg Metoprolol Tartrate (Lopressor -) 25 mg PO BID [facility] Last Admin: 09/04/18 09:21 Dose: 25 mg Miscellaneous (Lidoderm Patch Removal) 1 each MC DAILY@2200 [facility] Last Admin: 09/03/18 21:15 Dose: Not Given Nitroglycerin (Nitrostat -) 0.4 mg SL Q5M PRN PRN Reason: FOR CHEST PAIN Non-Formulary Medication (Ruxolitinib Phosphate [Jakafi]) 5 mg GT BID [facility] Last Admin: 09/04/18 09:22 Dose: 5 mg Oxycodone HCl (Roxicodone -) 5 mg PO Q6H PRN PRN Reason: PAIN LEVEL 7 - 10 Last Admin: 09/03/18 16:38 Dose: 5 mg Potassium Chloride (Potassium Chloride Oral Liquid) 40 meq GT DAILY [facility] Last Admin: 09/04/18 09:22 Dose: 40 meq Potassium Phos/Sodium Phos (Phos-Nak Packet -) 1 packet PO BID [facility] Last Admin: 09/04/18 09:21 Dose: 1 packet Ranitidine HCl (Zantac Oral Solution -) 150 mg PEG BID [facility] Last Admin: 09/04/18 09:21 Dose: 150 mg A/P Acute Hypoxic Respiratory Failure Pneumonia Atelectasis Influenza A Hodgkins Lymphoma Paroxymsal Atrial Fibrillation - completed antibiotics - inhaled bronchodilators - O2 to keep SpO2 >90% - BiPAP at night and PRN during day - incentive spirometry - aspiration precautions - continue anticoagulation - continuous pulse oximetry monitoring - consider LTAC placement
--- NOTE | 2018-09-04 16:46 | PN ---
Progress Note, Physician Chief Complaint: Influenza A+ SIRS History of Present Illness: Extremely lethargic Influenza + Seen by ID Finished Tamiflu and IV abx on Venti mask Tachycardia improved Tele monitoring Fevers improved - Current Medication List Current Medications: Active Medications Acetaminophen (Tylenol Oral Solution -) 650 mg PO Q6H PRN PRN Reason: FEVER Last Admin: 09/03/18 16:39 Dose: 650 mg Albuterol Sulfate (Ventolin 0.083% Nebulizer Soln -) 1 amp NEB Q6H PRN PRN Reason: SHORT OF BREATH/WHEEZING Last Admin: 09/04/18 09:39 Dose: 1 amp Amino Acids (Prosource No Carb Liquid Pkt) 30 ml PO BID@0800,1730 [facility] Last Admin: 09/04/18 09:21 Dose: 30 ml Artificial Tears (Artificial Tears) 1 drop OU Q6H PRN PRN Reason: DRY EYES Dexamethasone (Decadron Liquid -) 0.5 mg PO DAILY [facility] Last Admin: 09/04/18 09:21 Dose: 0.5 mg Gabapentin (Neurontin Oral Liquid -) 250 mg PEG TID [facility] Last Admin: 09/04/18 06:21 Dose: Not Given Guaifenesin (Robitussin Dm -) 10 ml PO Q6H PRN PRN Reason: COUGH Last Admin: 09/03/18 09:23 Dose: 10 ml Insulin Aspart (Novolog Vial Sliding Scale -) 1 vial SQ [facility]; Protocol Last Admin: 09/04/18 11:23 Dose: Not Given Levetiracetam (Keppra Oral Solution -) 500 mg GT BID [facility] Last Admin: 09/04/18 09:21 Dose: 500 mg Lidocaine (Lidoderm Patch -) 1 patch TP DAILY [facility] Last Admin: 09/04/18 09:21 Dose: Not Given Loperamide HCl (Imodium Liquid -) 2 mg PEG DAILY [facility] Last Admin: 09/04/18 09:21 Dose: 2 mg Metoprolol Tartrate (Lopressor -) 25 mg PO BID [facility] Last Admin: 09/04/18 09:21 Dose: 25 mg Miscellaneous (Lidoderm Patch Removal) 1 each MC DAILY@2200 [facility] Last Admin: 09/03/18 21:15 Dose: Not Given Nitroglycerin (Nitrostat -) 0.4 mg SL Q5M PRN PRN Reason: FOR CHEST PAIN Non-Formulary Medication (Ruxolitinib Phosphate [Jakafi]) 5 mg GT BID [facility] Last Admin: 09/04/18 09:22 Dose: 5 mg Oxycodone HCl (Roxicodone -) 5 mg PO Q6H PRN PRN Reason: PAIN LEVEL 7 - 10 Last Admin: 09/03/18 16:38 Dose: 5 mg Potassium Chloride (Potassium Chloride Oral Liquid) 40 meq GT DAILY [facility] Last Admin: 09/04/18 09:22 Dose: 40 meq Potassium Phos/Sodium Phos (Phos-Nak Packet -) 1 packet PO BID [facility] Last Admin: 09/04/18 09:21 Dose: 1 packet Ranitidine HCl (Zantac Oral Solution -) 150 mg PEG BID [facility] Last Admin: 09/04/18 09:21 Dose: 150 mg Warfarin Sodium (Coumadin -) 2.5 mg PO DAILY@1800 [facility] - Objective Vital Signs: Vital Signs Temperature 98.9 F 09/04/18 14:00 Pulse Rate 93 H 09/04/18 14:00 Respiratory Rate 18 09/04/18 14:00 Blood Pressure 109/75 09/04/18 14:00 O2 Sat by Pulse Oximetry (%) 97 09/04/18 08:32 Constitutional: Yes: Well Nourished, No Distress, Calm Cardiovascular: Yes: Regular Rate and Rhythm Respiratory: Yes: Regular Gastrointestinal: Yes: Normal Bowel Sounds, Soft Musculoskeletal: Yes: Muscle Weakness Edema: No Peripheral Pulses WNL: Yes Neurological: Yes: Alert, Pre-Existing Deficit Psychiatric: Yes: Alert Labs: CBC, BMP 09/04/18 06:10 09/03/18 05:50 INR, PTT INR 1.89 (0.83-1.09) H 09/04/18 06:10 Problem List - Problems (1) Hypoxia Assessment/Plan: -Venti mask keep Spo2>90% -Pulmonary consult -bronchodilators -On small dose of Decadron, moniter lytes closely Code(s): R09.02 - HYPOXEMIA (2) Tachycardia Assessment/Plan: -IVF -telemetry monitoring Code(s): R00.0 - TACHYCARDIA, UNSPECIFIED (3) Influenza A Assessment/Plan: -Tamiflu complete -afebrile -ID consult -Tylenol for fever Code(s): J10.1 - FLU DUE TO OTH IDENT INFLUENZA VIRUS W OTH RESP MANIFEST (4) SIRS (systemic inflammatory response syndrome) Code(s): R65.10 - SIRS OF NON-INFECTIOUS ORIGIN W/O ACUTE ORGAN DYSFUNCTION (5) Hodgkin lymphoma Assessment/Plan: -Hematology/onc consult -Continue decadron -Jakafi Code(s): C81.90 - HODGKIN LYMPHOMA, UNSPECIFIED, UNSPECIFIED SITE (6) Anticoagulant long-term use Assessment/Plan: -On Warfarin due to hx of CVA -Monitor INR trend- -start Warfarin at 2.5 mg daily, taper up slowly -INR goal 2-3 -daily INR's Code(s): Z79.01 - ALF (CURRENT) USE OF ANTICOAGULANTS Assessment/Plan See problem list DVT prophylaxis Needs LTAC, awaiting approval
[2018-09-04] MEDS: WARFARIN NA 2.5 MG TABLET (FP) PO SCH (17:44)
--- NOTE | 2018-09-04 17:59 | PN ---
Progress Note, Physician Chief Complaint: SOB History of Present Illness: Feels more SOB today, with increased time on BiPAP - Current Medication List Current Medications: Active Medications Acetaminophen (Tylenol Oral Solution -) 650 mg PO Q6H PRN PRN Reason: FEVER Last Admin: 09/03/18 16:39 Dose: 650 mg Albuterol Sulfate (Ventolin 0.083% Nebulizer Soln -) 1 amp NEB Q6H PRN PRN Reason: SHORT OF BREATH/WHEEZING Last Admin: 09/04/18 09:39 Dose: 1 amp Amino Acids (Prosource No Carb Liquid Pkt) 30 ml PO BID@0800,1730 [facility] Last Admin: 09/04/18 09:21 Dose: 30 ml Artificial Tears (Artificial Tears) 1 drop OU Q6H PRN PRN Reason: DRY EYES Dexamethasone (Decadron Liquid -) 0.[address] [facility] Last Admin: 09/04/18 09:21 Dose: 0.5 mg Gabapentin (Neurontin Oral Liquid -) [address] [facility] Last Admin: 09/04/18 06:21 Dose: Not Given Guaifenesin (Robitussin Dm -) 10 ml PO Q6H PRN PRN Reason: COUGH Last Admin: 09/03/18 09:23 Dose: 10 ml Insulin Aspart (Novolog Vial Sliding Scale -) 1 vial SQ [facility]; Protocol Last Admin: 09/04/18 11:23 Dose: Not Given Levetiracetam (Keppra Oral Solution -) [address] [facility] Last Admin: 09/04/18 09:21 Dose: 500 mg Lidocaine (Lidoderm Patch -) [address] [facility] Last Admin: 09/04/18 09:21 Dose: Not Given Loperamide HCl (Imodium Liquid -) [address] [facility] Last Admin: 09/04/18 09:21 Dose: 2 mg Metoprolol Tartrate (Lopressor -) [address] [facility] Last Admin: 09/04/18 09:21 Dose: 25 mg Miscellaneous (Lidoderm Patch Removal) 1 each MC DAILY@2200 [facility] Last Admin: 09/03/18 21:15 Dose: Not Given Nitroglycerin (Nitrostat -) 0.4 mg SL Q5M PRN PRN Reason: FOR CHEST PAIN Non-Formulary Medication (Ruxolitinib Phosphate [Jakafi]) [address] [facility] Last Admin: 09/04/18 09:22 Dose: 5 mg Oxycodone HCl (Roxicodone -) 5 mg PO Q6H PRN PRN Reason: PAIN LEVEL 7 - 10 Last Admin: 09/03/18 16:38 Dose: 5 mg Potassium Chloride (Potassium Chloride Oral Liquid) [address] [facility] Last Admin: 09/04/18 09:22 Dose: 40 meq Potassium Phos/Sodium Phos (Phos-Nak Packet -) [address] [facility] Last Admin: 09/04/18 09:21 Dose: 1 packet Ranitidine HCl (Zantac Oral Solution -) [address] [facility] Last Admin: 09/04/18 09:21 Dose: 150 mg Warfarin Sodium (Coumadin -) 2.5 mg PO DAILY@1800 [facility] - Objective Vital Signs: Vital Signs Temperature 98.9 F 09/04/18 14:00 Pulse Rate 93 H 09/04/18 14:00 Respiratory Rate 18 09/04/18 14:00 Blood Pressure 109/75 09/04/18 14:00 O2 Sat by Pulse Oximetry (%) 99 09/04/18 16:41 Constitutional: Yes: No Distress, Calm Eyes: Yes: Conjunctiva Clear Cardiovascular: Yes: Regular Rate and Rhythm Respiratory: Yes: Regular, CTA Bilaterally Gastrointestinal: Yes: Soft Labs: CBC, BMP 09/04/18 06:10 09/03/18 05:50 INR, PTT INR 1.89 (0.83-1.09) H 09/04/18 06:10 Assessment/Plan 37F, SNF resident, with hx CVA, on warfarin, HL s/p allogeneic transplant in 2014, followed at [facility] (Dr. 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 s/p broad spectrum Abx and Tamiflu. Hospital course c/b respiratory decompensation. Consider repeating CT chest given lack of improvement and immunosuppression (?OI). C/w dex and Jakafi. O
[2018-09-04] MEDS: LIDOCAINE PATCH REMOVAL MC SCH (21:49)
[2018-09-05] MEDS: GABAPENTIN 250 MG/5 ML ORAL SOLUTION, 470 ML BOTTLE PEG SCH ×3 (06:13→22:34)
[2018-09-05] MEDS: INSULIN SLIDING SCALE (NOVOLOG) 1 VIAL SQ SCH ×5 (06:24→22:34)
[2018-09-05 06:49] LABS: BASO % 0.3 % (0-2.0); EOS % 1.3 % (0-4.5); HEMATOCRIT 25.8 % (32.4-45.2); HEMOGLOBIN 8.5 GM/dL (10.7-15.3); LYMPH % 7.6 % (8-40); MCH 25.8 pg (25.7-33.7); MCHC 32.8 g/dl (32.0-36.0); MEAN CELL VOLUME 78.6 fl (80-96); MEAN PLT VOLUME 8.8 fl (7.5-11.1); MONO % 9.6 % (3.8-10.2); NEUT % 81.2 % (42.8-82.8); PLATELET COUNT 349 K/MM3 (134-434); RBC 3.28 M/mm3 (3.60-5.2); RDW 25.7 % (11.6-15.6); WHITE BLOOD COUNT 7.2 K/mm3 (4.0-10.0)
[2018-09-05 07:14] LABS: INR 2.93 (0.83-1.09); PROTHROMBIN TIME (PATIENT) 34.9 SEC (9.7-13.0)
[2018-09-05] MEDS: POTASSIUM CHLORIDE ORAL LIQUID 20 MEQ/15 ML GT SCH (10:18)
[2018-09-05] MEDS: RANITIDINE HCL 150 MG/10 ML UNIT-DOSE PEG SCH ×2 (10:18→22:33)
[2018-09-05] MEDS: levETIRAcetam 500 MG/5 ML ORAL SOLUTION (UNIT-DOSE CUPS) GT SCH ×2 (10:18→22:34)
[2018-09-05] MEDS: DEXAMETHASONE LIQUID 0.5 MG/5 ML 240 ML BULK BOTTLE PO SCH (10:18)
[2018-09-05] MEDS: METOPROLOL TARTRATE 25 MG TABLET (FP) PO SCH ×2 (10:18→22:34)
[2018-09-05] MEDS: LOPERAMIDE HCL 1 MG/5 ML UNIT DOSE CUP PEG SCH (10:18)
[2018-09-05] MEDS: NAPH,MB-DB/K PH,MBDB POWDER PACKET PO SCH ×2 (10:18→22:33)
[2018-09-05] MEDS: AMINO ACIDS/PROTEIN HYDROLYS 30 ML LIQUID.PKT PO SCH ×2 (10:19→18:26)
[2018-09-05] MEDS: RUXOLITINIB PHOSPHATE 5 MG GT SCH ×2 (10:19→22:35)
[2018-09-05] MEDS: LIDOCAINE 5% TOPICAL PATCH TP SCH (10:19)
--- NOTE | 2018-09-05 13:04 | PN ---
Progress Note, Physician Chief Complaint: patient on ventimask since AM today used bipap at night - Current Medication List Current Medications: Active Medications Acetaminophen (Tylenol Oral Solution -) 650 mg PO Q6H PRN PRN Reason: FEVER Last Admin: 09/03/18 16:39 Dose: 650 mg Albuterol Sulfate (Ventolin 0.083% Nebulizer Soln -) 1 amp NEB Q6H PRN PRN Reason: SHORT OF BREATH/WHEEZING Last Admin: 09/04/18 23:48 Dose: 1 amp Amino Acids (Prosource No Carb Liquid Pkt) 30 ml PO BID@0800,1730 [facility] Last Admin: 09/05/18 10:19 Dose: 30 ml Artificial Tears (Artificial Tears) 1 drop OU Q6H PRN PRN Reason: DRY EYES Dexamethasone (Decadron Liquid -) 0.5 mg PO DAILY [facility] Last Admin: 09/05/18 10:18 Dose: 0.5 mg Gabapentin (Neurontin Oral Liquid -) 250 mg PEG TID [facility] Last Admin: 09/05/18 06:13 Dose: 250 mg Guaifenesin (Robitussin Dm -) 10 ml PO Q6H PRN PRN Reason: COUGH Last Admin: 09/03/18 09:23 Dose: 10 ml Insulin Aspart (Novolog Vial Sliding Scale -) 1 vial SQ [facility]; Protocol Last Admin: 09/05/18 12:07 Dose: Not Given Levetiracetam (Keppra Oral Solution -) 500 mg GT BID [facility] Last Admin: 09/05/18 10:18 Dose: 500 mg Lidocaine (Lidoderm Patch -) 1 patch TP DAILY [facility] Last Admin: 09/05/18 10:19 Dose: Not Given Loperamide HCl (Imodium Liquid -) 2 mg PEG DAILY [facility] Last Admin: 09/05/18 10:18 Dose: 2 mg Metoprolol Tartrate (Lopressor -) 25 mg PO BID [facility] Last Admin: 09/05/18 10:18 Dose: 25 mg Miscellaneous (Lidoderm Patch Removal) 1 each MC DAILY@2200 [facility] Last Admin: 09/04/18 21:49 Dose: Not Given Nitroglycerin (Nitrostat -) 0.4 mg SL Q5M PRN PRN Reason: FOR CHEST PAIN Non-Formulary Medication (Ruxolitinib Phosphate [Jakafi]) 5 mg GT BID [facility] Last Admin: 09/05/18 10:19 Dose: 5 mg Oxycodone HCl (Roxicodone -) 5 mg PO Q6H PRN PRN Reason: PAIN LEVEL 7 - 10 Last Admin: 09/03/18 16:38 Dose: 5 mg Potassium Chloride (Potassium Chloride Oral Liquid) 40 meq GT DAILY [facility] Last Admin: 09/05/18 10:18 Dose: 40 meq Potassium Phos/Sodium Phos (Phos-Nak Packet -) 1 packet PO BID [facility] Last Admin: 09/05/18 10:18 Dose: 1 packet Ranitidine HCl (Zantac Oral Solution -) 150 mg PEG BID [facility] Last Admin: 09/05/18 10:18 Dose: 150 mg Warfarin Sodium (Coumadin -) 2.5 mg PO DAILY@1800 [facility] Last Admin: 09/04/18 17:44 Dose: 2.5 mg - Objective Vital Signs: Vital Signs Temperature 97.8 F 09/05/18 10:00 Pulse Rate 89 09/05/18 10:00 Respiratory Rate 18 09/05/18 10:00 Blood Pressure 112/68 09/05/18 10:00 O2 Sat by Pulse Oximetry (%) 98 09/05/18 10:00 got osmolite feeds last night Constitutional: Yes: Calm Cardiovascular: Yes: Regular Rate and Rhythm, S1, S2 Respiratory: Yes: Diminished, On Venti-Mask Gastrointestinal: Yes: Normal Bowel Sounds, Soft, Other (peg) Labs: CBC, BMP 09/05/18 06:00 09/03/18 05:50 INR, PTT INR 2.93 (0.83-1.09) H 09/05/18 06:00 Problem List - Problems (1) Acute hypoxemic respiratory failure Assessment/Plan: completed abx course bipap as needed during day and 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-continuously on venti mask today awaiting authorization for LTAC Code(s): J96.01 - ACUTE RESPIRATORY FAILURE WITH HYPOXIA (2) Influenza A Assessment/Plan: completed tamiflu Code(s): J10.1 - FLU DUE TO OTH IDENT INFLUENZA VIRUS W OTH RESP MANIFEST (3) Hypokalemia Assessment/Plan: repleted- improved Code(s): E87.6 - HYPOKALEMIA (4) Anticoagulant long-term use Assessment/Plan: hx of cva - on couamdin monitor inr-hold coumadin given increase inr- s/p vitamin K daily inr Code(s): Z79.01 - [facility] (CURRENT) USE OF ANTICOAGULANTS (5) Hodgkin lymphoma Assessment/Plan: heme on board on jakafi and dexa patient refusing CT chest Code(s): C81.90 - HODGKIN LYMPHOMA, UNSPECIFIED, UNSPECIFIED SITE (6) Hypomagnesemia Code(s): E83.42 - HYPOMAGNESEMIA (7) Hypophosphatemia Code(s): E83.39 - OTHER DISORDERS OF PHOSPHORUS METABOLISM
--- NOTE | 2018-09-05 14:16 | PN ---
Progress Note (short form) - Note Progress Note: Patient seen on the Telemetry unit. Breathing seems better today. Has VM O2 off her face. NIPPV overnight. Intake & Output 09/02/18 09/03/18 09/04/18 09/05/18 23:59 23:59 23:59 23:59 Intake Total 760 900 350 550 Output Total 0 Balance 760 900 350 550 Last Vital Signs Temp Pulse Resp BP Pulse Ox 97.8 F 89 18 112/68 98 09/05/18 10:00 09/05/18 10:00 09/05/18 10:00 09/05/18 10:00 09/05/18 10:00 Active Medications Acetaminophen (Tylenol Oral Solution -) 650 mg PO Q6H PRN PRN Reason: FEVER Last Admin: 09/03/18 16:39 Dose: 650 mg Albuterol Sulfate (Ventolin 0.083% Nebulizer Soln -) 1 amp NEB Q6H PRN PRN Reason: SHORT OF BREATH/WHEEZING Last Admin: 09/04/18 23:48 Dose: 1 amp Amino Acids (Prosource No Carb Liquid Pkt) 30 ml PO BID@0800,1730 [facility] Last Admin: 09/05/18 10:19 Dose: 30 ml Artificial Tears (Artificial Tears) 1 drop OU Q6H PRN PRN Reason: DRY EYES Dexamethasone (Decadron Liquid -) 0.5 mg PO DAILY [facility] Last Admin: 09/05/18 10:18 Dose: 0.5 mg Gabapentin (Neurontin Oral Liquid -) 250 mg PEG TID [facility] Last Admin: 09/05/18 06:13 Dose: 250 mg Guaifenesin (Robitussin Dm -) 10 ml PO Q6H PRN PRN Reason: COUGH Last Admin: 09/03/18 09:23 Dose: 10 ml Insulin Aspart (Novolog Vial Sliding Scale -) 1 vial SQ ACHS [facility]; Protocol Last Admin: 09/05/18 12:07 Dose: Not Given Levetiracetam (Keppra Oral Solution -) 500 mg GT BID [facility] Last Admin: 09/05/18 10:18 Dose: 500 mg Lidocaine (Lidoderm Patch -) 1 patch TP DAILY [facility] Last Admin: 09/05/18 10:19 Dose: Not Given Loperamide HCl (Imodium Liquid -) 2 mg PEG DAILY [facility] Last Admin: 09/05/18 10:18 Dose: 2 mg Metoprolol Tartrate (Lopressor -) 25 mg PO BID [facility] Last Admin: 09/05/18 10:18 Dose: 25 mg Miscellaneous (Lidoderm Patch Removal) 1 each MC DAILY@2200 [facility] Last Admin: 09/04/18 21:49 Dose: Not Given Nitroglycerin (Nitrostat -) 0.4 mg SL Q5M PRN PRN Reason: FOR CHEST PAIN Non-Formulary Medication (Ruxolitinib Phosphate [Jakafi]) 5 mg GT BID [facility] Last Admin: 09/05/18 10:19 Dose: 5 mg Oxycodone HCl (Roxicodone -) 5 mg PO Q6H PRN PRN Reason: PAIN LEVEL 7 - 10 Last Admin: 09/03/18 16:38 Dose: 5 mg Potassium Chloride (Potassium Chloride Oral Liquid) 40 meq GT DAILY [facility] Last Admin: 09/05/18 10:18 Dose: 40 meq Potassium Phos/Sodium Phos (Phos-Nak Packet -) 1 packet PO BID [facility] Last Admin: 09/05/18 10:18 Dose: 1 packet Ranitidine HCl (Zantac Oral Solution -) 150 mg PEG BID [facility] Last Admin: 09/05/18 10:18 Dose: 150 mg Warfarin Sodium (Coumadin -) 2.5 mg PO DAILY@1800 [facility] Last Admin: 09/04/18 17:44 Dose: 2.5 mg Gen: Awake and alert, less tachypneic, mild breathlessness with speaking Heart: RRR Lung: distant breath sounds Abd: soft, nontender Ext: trace edema Laboratory Results - last 24 hr 09/05/18 09/05/18 06:00 06:00 WBC 7.2 RBC 3.28 L Hgb 8.5 L Hct 25.8 L MCV 78.6 L MCH 25.8 MCHC 32.8 RDW 25.7 H Plt Count 349 MPV 8.8 Absolute Neuts (auto) 5.8 Neutrophils % 81.2 D Lymphocytes % 7.6 L D Monocytes % 9.6 Eosinophils % 1.3 Basophils % 0.3 Nucleated RBC % 0 PT with INR 34.90 H INR 2.93 H A/P Acute Hypoxic Respiratory Failure Pneumonia Atelectasis Influenza A Hodgkins Lymphoma Paroxymsal Atrial Fibrillation - Trial of NC O2 - completed antibiotics - inhaled bronchodilators - O2 to keep SpO2 >90% - NIPPV QHS and PRN during day - incentive spirometry - aspiration precautions - inhaled bronchodilators - continue anticoagulation - continuous pulse oximetry monitoring - There is no Pulmonary contraindication for D/C to LTAC. Dr Ramos
[2018-09-05] MEDS: oxyCODONE HCL 5 MG TABLET PO PRN ×2 (14:25→22:45)
[2018-09-05] MEDS: WARFARIN NA 2.5 MG TABLET (FP) PO SCH (18:26)
--- NOTE | 2018-09-05 19:51 | PN ---
Progress Note (short form) - Note Progress Note: patient seen and eamined reports feeling better Last Vital Signs Temp Pulse Resp BP Pulse Ox 98.3 F 98 H 18 100/58 L 96 09/05/18 14:00 09/05/18 14:00 09/05/18 14:00 09/05/18 14:00 09/05/18 20:17 Cor: RSR, No murmurs, No gallops Lungs: scattered wheezes Abd: Soft, Normal bowel sounds, No organomegaly Ext:No significant edema sclerodermoid skin changes labs/meds reviewed a/p 37F, SNF resident, with hx CVA, on warfarin, HL s/p allogeneic transplant in 2014, followed at [facility] (Dr. 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 on Jakafi (abrupt discontinuation can rapidly cause severe life threatening withdrawal syndrome) and dexamethasone mouth rinse on pain meds chronically off antibiotics/steroids will follow clinical course
[2018-09-05] MEDS: LIDOCAINE PATCH REMOVAL MC SCH (22:34)
[2018-09-06] MEDS: GABAPENTIN 250 MG/5 ML ORAL SOLUTION, 470 ML BOTTLE PEG SCH ×3 (05:54→22:47)
[2018-09-06] MEDS: guaiFENesin/D-METHORPHAN HB 10 ML UNIT-DOSE CUPS PO PRN ×2 (05:54→15:17)
[2018-09-06] MEDS: INSULIN SLIDING SCALE (NOVOLOG) 1 VIAL SQ SCH ×4 (06:06→22:44)
[2018-09-06 06:32] LABS: BASO % 1.1 % (0-2.0); EOS % 2.6 % (0-4.5); HEMATOCRIT 24.7 % (32.4-45.2); LYMPH % 17.5 % (8-40); MCH 26.2 pg (25.7-33.7); MCHC 32.5 g/dl (32.0-36.0); MEAN CELL VOLUME 80.6 fl (80-96); MEAN PLT VOLUME 8.6 fl (7.5-11.1); MONO % 14.3 % (3.8-10.2); NEUT % 64.5 % (42.8-82.8); PLATELET COUNT 298 K/MM3 (134-434); RBC 3.07 M/mm3 (3.60-5.2)
[2018-09-06 07:14] LABS: INR 1.29 (0.83-1.09); PROTHROMBIN TIME (PATIENT) 15.3 SEC (9.7-13.0)
[2018-09-06 08:00] LABS: ALK PHOS 204 U/L (45-117); ANION GAP 8 MMOL/L (8-16); BILIRUBIN,TOTAL 0.3 mg/dL (0.2-1); BLOOD UREA NITROGEN 24 mg/dL (7-18); CALCIUM 8.3 mg/dL (8.5-10.1); CHLORIDE 108 mmol/L (98-107); CO2 28 mmol/L (21-32); CREATININE 0.2 mg/dL (0.55-1.3); GLUCOSE,RANDOM 91 mg/dL (74-106); POTASSIUM 3.7 mmol/L (3.5-5.1); SGOT/AST 15 U/L (15-37); SGPT/ALT 18 U/L (13-61); SODIUM 144 mmol/L (136-145); TOT PROT 6.1 g/dl (6.4-8.2)
[2018-09-06] MEDS ORDERED: PT OWN MED DRAWER 7, Y5N ONE ×4 (09:53→16:16)
[2018-09-06] MEDS: DEXAMETHASONE LIQUID 0.5 MG/5 ML 240 ML BULK BOTTLE PO SCH (10:08)
[2018-09-06] MEDS: NAPH,MB-DB/K PH,MBDB POWDER PACKET PO SCH ×2 (10:08→22:42)
[2018-09-06] MEDS: levETIRAcetam 500 MG/5 ML ORAL SOLUTION (UNIT-DOSE CUPS) GT SCH ×2 (10:08→22:42)
[2018-09-06] MEDS: LOPERAMIDE HCL 1 MG/5 ML UNIT DOSE CUP PEG SCH (10:08)
[2018-09-06] MEDS: AMINO ACIDS/PROTEIN HYDROLYS 30 ML LIQUID.PKT PO SCH ×2 (10:09→17:08)
[2018-09-06] MEDS: RANITIDINE HCL 150 MG/10 ML UNIT-DOSE PEG SCH ×2 (10:09→22:43)
[2018-09-06] MEDS: POTASSIUM CHLORIDE ORAL LIQUID 20 MEQ/15 ML GT SCH (10:09)
[2018-09-06] MEDS: RUXOLITINIB PHOSPHATE 5 MG GT SCH ×2 (10:09→22:44)
[2018-09-06] MEDS: METOPROLOL TARTRATE 25 MG TABLET (FP) PO SCH ×2 (10:22→22:42)
[2018-09-06] MEDS: LIDOCAINE 5% TOPICAL PATCH TP SCH (10:22)
--- NOTE | 2018-09-06 11:06 | DS ---
Physical Examination Vital Signs: Vital Signs Temperature 97.0 F L 09/06/18 10:05 Pulse Rate 77 09/06/18 10:05 Respiratory Rate 18 09/06/18 10:05 Blood Pressure 98/67 09/06/18 10:05 O2 Sat by Pulse Oximetry (%) 98 09/06/18 08:11 Findings/Remarks: The patient is a 37 year old female, [facility] resident, with a significant PMH of hodgkins lymphoma, BMT, CVA (on coumadin), who presents to the emergency department with 3 days of worsening SOB. Pt states she has felt sick with fevers and poor appetite for 3 days as well. States she has been compliant with her medications. The patient denies chest pain, cough, headache and dizziness. Denies nausea, vomit, diarrhea and constipation. Denies dysuria, frequency, urgency and hematuria. Constitutional: Yes: Well Nourished, No Distress, Calm, Other (WEAK APPEARING) Cardiovascular: Yes: Regular Rate and Rhythm Respiratory: Yes: Regular, Diminished (BIBASILAR) Gastrointestinal: Yes: WNL Musculoskeletal: Yes: Muscle Weakness Edema: No Peripheral Pulses WNL: Yes Neurological: Yes: Alert, Oriented, Lethargy Psychiatric: Yes: Alert Labs: CBC, BMP 09/06/18 05:40 09/06/18 05:40 Discharge Summary Reason For Visit: INFLUENZA DUE TO INFLUENZA VIRUS,TYPE A, HUMAN Current Active Problems Acute hypoxemic respiratory failure (Acute) Anticoagulant long-term use (Acute) Hodgkin lymphoma (Acute) Hypokalemia (Acute) Hypomagnesemia (Acute) Hypophosphatemia (Acute) Hypoxia (Acute) Influenza A (Acute) SIRS (systemic inflammatory response syndrome) (Acute) Tachycardia (Acute) Hospital Course: Laboratory Last Values WBC 4.0 K/mm3 (4.0-10.0) 09/06/18 05:40 RBC 3.07 M/mm3 (3.60-5.2) L 09/06/18 05:40 Hgb 8.0 GM/dL (10.7-15.3) L 09/06/18 05:40 Hct 24.7 % (32.4-45.2) L 09/06/18 05:40 MCV 80.6 fl (80-96) 09/06/18 05:40 MCH 26.2 pg (25.7-33.7) 09/06/18 05:40 MCHC 32.5 g/dl (32.0-36.0) 09/06/18 05:40 RDW 26.0 % (11.6-15.6) H 09/06/18 05:40 Plt Count 298 K/MM3 (134-434) 09/06/18 05:40 MPV 8.6 fl (7.5-11.1) 09/06/18 05:40 Absolute Neuts (auto) 2.6 K/mm3 (1.5-8.0) 09/06/18 05:40 Neutrophils % (Manual) 98.0 % (42.8-82.8) H 08/25/18 05:30 Band Neutrophils % 0.0 % 08/25/18 05:30 Neutrophils % 64.5 % (42.8-82.8) D 09/06/18 05:40 Lymphocytes % (Manual) 1.0 % (8-40) L 08/25/18 05:30 Lymphocytes % 17.5 % (8-40) D 09/06/18 05:40 Monocytes % (Manual) 1 % (3.8-10.2) L D 08/25/18 05:30 Eosinophils % (Manual) 0.0 % (0-4.5) 08/25/18 05:30 Monocytes % 14.3 % (3.8-10.2) H 09/06/18 05:40 Basophils % (Manual) 0.0 % (0-2.0) 08/25/18 05:30 Eosinophils % 2.6 % (0-4.5) D 09/06/18 05:40 Myelocytes % (Man) 0 % (0-2) 08/25/18 05:30 Basophils % 1.1 % (0-2.0) D 09/06/18 05:40 Promyelocytes % (Man) 0 % (0-2) 08/25/18 05:30 Blast Cells % (Manual) 0 % (0-0) 08/25/18 05:30 Nucleated RBC % 0 % (0-0) 09/06/18 05:40 Metamyelocytes 0 % (0-2) 08/25/18 05:30 Hypochromia 1+ 08/27/18 05:15 Platelet Estimate Adequate 09/03/18 05:50 Platelet Comment Giant platelets 09/03/18 05:50 Polychromasia 2+ 08/27/18 05:15 Poikilocytosis 2+ 09/03/18 05:50 Anisocytosis 2+ 09/03/18 05:50 Microcytosis 1+ 09/03/18 05:50 Macrocytosis 1+ 09/03/18 05:50 Spherocytes 1+ 08/27/18 05:15 Target Cells 1+ 09/03/18 05:50 Tear Drop Cells 1+ 09/03/18 05:50 Ovalocytes 1+ 09/03/18 05:50 Burke Cells 1+ 09/03/18 05:50 Acanthocytes (Spur) 1+ 09/03/18 05:50 Fragmented RBCs 1+ 08/27/18 05:15 Schistocytes 1+ 08/25/18 05:30 ESR 77 mm/hr (0-20) H 08/22/18 05:30 Retic Count 1.38 % (0.5-1.5) 08/24/18 05:30 Haptoglobin 520 mg/dL (34-200) H 08/24/18 05:30 PT with INR 15.30 SEC (9.7-13.0) H 09/06/18 05:40 INR 1.29 (0.83-1.09) H 09/06/18 05:40 PTT (Actin FS) 39.1 SECONDS (25.2-36.5) H 08/21/18 12:00 Anticoagulation Therapy No Result Required. 08/20/18 18:00 Puncture Site Right radial 08/20/18 18:00 ABG pH 7.45 (7.35-7.45) 08/20/18 18:00 ABG pCO2 at Pt Temp 40.9 mmHg (35-45) 08/20/18 18:00 ABG pO2 at Pt Temp 57.6 mmHg (80-100) L D 08/20/18 18:00 ABG HCO3 27.9 meq/L (22-26) H 08/20/18 18:00 ABG O2 Sat (Measured) 90.5 % (90-98.9) 08/20/18 18:00 ABG O2 Content 14.7 % vol (15-22) L 08/20/18 18:00 ABG Base Excess 4.0 meq/l (-2-2) H 08/20/18 18:00 Regis Test Positive 08/20/18 18:00 VBG pH Cancelled 08/12/18 17:40 POC VBG pCO2 Cancelled 08/12/18 17:40 POC VBG pO2 Cancelled 08/12/18 17:40 Mixed VBG HCO3 Cancelled 08/12/18 17:40 Carboxyhemoglobin 0.8 gm% (0.5-2.0) 08/12/18 18:10 Methemoglobin 0.7 % (0.4-1.5) 08/12/18 18:10 O2 Delivery Device Bipap 08/20/18 18:00 Oxygen Flow Rate 85% 08/20/18 18:00 Vent Mode S/t 08/20/18 18:00 Vent Rate 15 08/20/18 18:00 Mechanical Rate No Result Required. 08/20/18 18:00 PEEP 0.0 cmH2O 08/20/18 18:00 Pressure Support Vent Ipap 10/epap 5 08/20/18 18:00 Sodium 144 mmol/L (136-145) 09/06/18 05:40 Potassium 3.7 mmol/L (3.5-5.1) 09/06/18 05:40 Chloride 108 mmol/L (98-107) H 09/06/18 05:40 Carbon Dioxide 28 mmol/L (21-32) 09/06/18 05:40 Anion Gap 8 MMOL/L (8-16) 09/06/18 05:40 BUN 24 mg/dL (7-18) H 09/06/18 05:40 Creatinine 0.2 mg/dL (0.55-1.3) L 09/06/18 05:40 Creat Clearance w eGFR 393.40 (>60) 09/06/18 05:40 POC Glucometer 105 UNITS (80-120) 09/03/18 11:24 Random Glucose 91 mg/dL (74-106) 09/06/18 05:40 Hemoglobin A1c % 5.6 % (4.2-6.3) 09/04/18 06:10 Lactic Acid 1.2 mmol/L (0.4-2.0) 08/12/18 17:40 Calcium 8.3 mg/dL (8.5-10.1) L 09/06/18 05:40 Phosphorus 3.8 mg/dL (2.5-4.9) 09/03/18 05:50 Magnesium 1.7 mg/dL (1.8-2.4) L 09/03/18 05:50 Iron 70 ug/dL (27-159) 08/24/18 05:30 TIBC 282 ug/dL (250-450) 08/24/18 05:30 Iron Saturation 25 % (15-55) 08/24/18 05:30 Total Bilirubin 0.3 mg/dL (0.2-1) 09/06/18 05:40 AST 15 U/L (15-37) 09/06/18 05:40 ALT 18 U/L (13-61) 09/06/18 05:40 Alkaline Phosphatase 204 U/L (45-117) H 09/06/18 05:40 Creatine Kinase 27 U/L (26-192) 08/17/18 22:46 Troponin I < 0.02 ng/ml (0.00-0.05) 08/17/18 22:46 C-Reactive Protein 17.8 MG/DL (0.00-0.3) H 08/22/18 05:30 B-Natriuretic Peptide 570.0 pg/ml (5-125) H 08/12/18 19:41 Total Protein 6.1 g/dl (6.4-8.2) L 09/06/18 05:40 Albumin 3.0 g/dl (3.4-5.0) L 09/06/18 05:40 Vitamin B12 1220 pg/ml (193-986) H 08/24/18 05:30 Serum Folate 8 ng/mL (3.1-17.5) 08/24/18 05:30 TSH 0.44 uIU/ml (0.358-3.74) 08/24/18 05:30 Free T4 1.02 ng/dl (0.76-1.46) 08/24/18 05:30 Serum , Qual Negative 08/12/18 18:46 Urine Color Ltyellow 08/12/18 22:00 Urine Appearance Clear 08/12/18 22:00 Urine pH 5.0 (5.0-8.0) 08/12/18 22:00 Ur Specific Theodore 1.015 (1.010-1.035) 08/12/18 22:00 Urine Protein 1+ (NEGATIVE) H 08/12/18 22:00 Urine Glucose (UA) Negative (NEGATIVE) 08/12/18 22:00 Urine Ketones 1+ (NEGATIVE) H 08/12/18 22:00 Urine Blood 1+ (NEGATIVE) H 08/12/18 22:00 Urine Nitrite Negative (NEGATIVE) 08/12/18 22:00 Urine Bilirubin Negative (<2.0 mg/dL) 08/12/18 22:00 Urine Urobilinogen Negative mg/dL (0.2-1.0) 08/12/18 22:00 Ur Leukocyte Esterase Negative (NEGATIVE) 08/12/18 22:00 Urine WBC (Auto) 3 /hpf (3-5) 08/12/18 22:00 Urine RBC (Auto) None /hpf (0-3) 08/12/18 22:00 Ur Epithelial Cells Rare /HPF (FEW) 08/12/18 22:00 Urine Mucus Rare 08/12/18 22:00 Stool Occult Blood Negative (NEGATIVE) 08/24/18 18:20 IgG 371 08/24/18 05:30 IgA 41 08/24/18 05:30 IgM 57 08/24/18 05:30 Serum JENNY Interpret (.) 08/24/18 05:30 IEP IgG 371 mg/dL (700-1600) L 08/24/18 05:30 IEP IgA 41 mg/dL (87-352) L 08/24/18 05:30 IEP IgM 57 mg/dL (26-217) 08/24/18 05:30 GISELLE Screen Negative (.) 08/22/18 12:30 c-ANCA <1:20 titer (Neg:<1:20) 08/22/18 12:30 Proteinase 3 (PR3) <3.5 U/mL (0.0-3.5) 08/22/18 12:30 p-ANCA <1:20 titer (Neg:<1:20) 08/22/18 12:30 Atypical p-ANCA <1:20 titer (Neg:<1:20) 08/22/18 12:30 Myeloperoxidase Ab <9.0 U/mL (0.0-9.0) 08/22/18 12:30 Influenza A (Rapid) Positive A 08/12/18 19:41 Influenza B (Rapid) Negative 08/12/18 19:41 Microbiology 08/21/18 17:40 Blood - Peripheral Venous Blood Culture - Final NO GROWTH AFTER 5 DAYS INCUBATION 08/21/18 17:40 Blood - Peripheral Venous Blood Culture - Final NO GROWTH AFTER 5 DAYS INCUBATION 08/22/18 17:00 Stool Clostridium difficile Antigen (LORIN) - Final 08/22/18 17:00 Stool Clostridium difficile Toxin Assay - Final 08/12/18 17:40 Blood - Peripheral Venous Blood Culture - Final NO GROWTH AFTER 5 DAYS INCUBATION 08/12/18 17:40 Blood - Peripheral Venous Blood Culture - Final NO GROWTH AFTER 5 DAYS INCUBATION 08/12/18 22:00 Urine - Urine Clean Catch Urine Culture - Final 08/12/18 22:00 Urine For Antigen Detection Legionella Antigen - Final Vital Signs Temp 97.0 F L 09/06/18 10:05 Pulse 77 09/06/18 10:05 Resp 18 09/06/18 10:05 BP 98/67 09/06/18 10:05 Pulse Ox 98 09/06/18 08:11 Intake & Output 09/05/18 09/05/18 09/06/18 11:59 23:59 11:59 Intake Total 550 300 130 Balance 550 300 130 Intake: IV 10 10 right chest Coronel's 10 10 central line Oral 50 300 120 Tube Feeding 350 Tube Irrigant 140 Other: Voiding Method Incontinent Incontinent Diaper # Unmeasured Voids Void 1 Bowel Movement Yes Body Mass Index (BMI) 22.9 Condition: Stable - Instructions Diet, Activity, Other Instructions: Completed Tamiflu and IV Zosyn bipap at night and PRN- IPAP-15, EPAP-8, FiO2-50%, RR-14 Venti mask at 50% during the day or when off bipap MONITOR INR MWF AND ADJUST COUMADIN Referrals: Cj Floyd MD [Primary Care Provider] - Disposition: ASSISTED FACILITY - Home Medications Comprehensive Discharge Medication List: Ambulatory Orders Gabapentin Liquid [Neurontin Oral Liquid -] 250 mg PEG TID 08/12/18 Lidocaine 5% Top. Ointment [Xylocaine 5% Top. Ointment -] 1 applic TP BID Loperamide HCl [Imodium A-D] 2 mg PEG DAILY 08/12/18 Potassium Chloride [Klor-Con] 20 meq GT DAILY 08/12/18 Ruxolitinib Phosphate [Jakafi] 5 mg GT BID 08/12/18 levETIRAcetam [levETIRAcetam ORAL SUSPENSION] 500 mg GT BID 08/12/18 Dexamethasone Liquid - [Decadron Liquid -] 0.5 mg PO DAILY ml 08/30/18 Guaifenesin Dm [Robitussin Dm -] 10 ml PO Q6H PRN cup 08/30/18 Insulin Sliding Scale [Novolog Vial Sliding Scale -] 1 vial SQ ACHS units 08/30 Metoprolol Tartrate [Lopressor -] 25 mg PO BID tablet 08/30/18 Naph,Mb-Db/K pH,Mbdb [PHOS-NaK PACKET -] 1 packet PO BID pow 08/30/18 Polyvinyl Alcohol [Artificial Tears] 1 drop OU Q6H PRN drops 08/30/18 Albuterol 0.083% Nebulizer Stephanie [Ventolin 0.083% Nebulizer Soln -] 1 amp NEB Q6H PRN amp 09/06/18 Amino Acids/Protein Hydrolys [Prosource No Carb Liquid Pkt] 30 ml PO BID@0800, 1730 packet 09/06/18 Lidocaine 5% Patch [Lidoderm -] 1 patch TP DAILY patch 09/06/18 Nitroglycerin Sublingual [Nitrostat -] 0.4 mg SL Q5M PRN tab 09/06/18 Warfarin Na [Coumadin -] 2.5 mg PO SUMOWEFRSA tablet 09/06/18 Warfarin Na [Coumadin -] 5 mg PO TUTH tablet 09/06/18 oxyCODONE HCL [Roxicodone -] 5 mg PO Q6H PRN #120 tablet MDD 4 09/06/18
[2018-09-06] MEDS: ALBUTEROL SO4 0.083% IH SOL 2.5 MG/3 ML VIAL.NEB. NEB PRN ×2 (15:20→23:29)
--- NOTE | 2018-09-06 15:25 | PN ---
Progress Note (short form) - Note Progress Note: Patient seen and examined For discharge Anxious and complains of some SOB Last Vital Signs Temp Pulse Resp BP Pulse Ox 97.9 F 86 12 102/73 100 09/06/18 13:45 09/06/18 13:45 09/06/18 13:45 09/06/18 13:45 09/06/18 10:00 HEENT: PATRICE, EOM Intact Oropharynx: No thrush, No mucositis Cor: RSR, No murmurs, No gallops Lungs: diminished breath sounds, rhonchi, wheezes Abd: Soft, Normal bowel sounds, No organomegaly Ext:No significant edema Skin: No rashes, Integument intact CBC, BMP 09/06/18 05:40 09/06/18 05:40 Current Medications Generic Name Dose Route Start Last Admin Trade Name Freq PRN Reason Stop Dose Admin Acetaminophen 650 mg 08/26/18 12:11 09/03/18 16:39 Tylenol Oral Solution - PO 650 mg Q6H PRN Administration FEVER Albuterol Sulfate 1 amp 08/25/18 18:54 09/06/18 15:20 Ventolin 0.083% Nebulizer Soln - NEB 1 amp Q6H PRN Administration SHORT OF BREATH/WHEEZING Amino Acids 30 ml 09/02/18 17:30 09/06/18 10:09 Prosource No Carb Liquid Pkt PO 30 ml BID@0800,1730 [facility] Administration Artificial Tears 1 drop 08/25/18 18:54 Artificial Tears OU Q6H PRN DRY EYES Dexamethasone 0.5 mg 08/26/18 10:00 09/06/18 10:08 Decadron Liquid - PO 0.5 mg DAILY [facility] Administration Gabapentin 250 mg 08/25/18 22:00 09/06/18 15:18 Neurontin Oral Liquid - PEG 250 mg TID [facility] Administration Guaifenesin 10 ml 08/25/18 18:54 09/06/18 15:17 Robitussin Dm - PO 10 ml Q6H PRN Administration COUGH Insulin Aspart 1 vial 08/25/18 22:00 09/06/18 11:33 Novolog Vial Sliding Scale - SQ Not Given ACHS [facility] Protocol Levetiracetam 500 mg 08/25/18 22:00 09/06/18 10:08 Keppra Oral Solution - GT 500 mg BID [facility] Administration Lidocaine 1 patch 08/26/18 10:00 09/06/18 10:22 Lidoderm Patch - TP Not Given DAILY [facility] Loperamide HCl 2 mg 08/26/18 10:00 09/06/18 10:08 Imodium Liquid - PEG 2 mg DAILY [facility] Administration Metoprolol Tartrate 25 mg 08/25/18 22:00 09/06/18 10:22 Lopressor - PO 25 mg BID [facility] Administration Miscellaneous 1 each 08/25/18 22:00 09/05/18 22:34 Lidoderm Patch Removal MC Not Given DAILY@2200 [facility] Nitroglycerin 0.4 mg 08/25/18 18:54 Nitrostat - SL Q5M PRN FOR CHEST PAIN Non-Formulary Medication 5 mg 08/25/18 22:00 09/06/18 10:09 Ruxolitinib Phosphate [Jakafi] GT 5 mg BID [facility] Administration Oxycodone HCl 5 mg 09/01/18 21:02 09/05/18 22:45 Roxicodone - PO 5 mg Q6H PRN Administration PAIN LEVEL 7 - 10 Potassium Chloride 40 meq 08/26/18 10:00 09/06/18 10:09 Potassium Chloride Oral Liquid GT 40 meq DAILY [facility] Administration Potassium Phos/Sodium Phos 1 packet 08/25/18 22:00 09/06/18 10:08 Phos-Nak Packet - PO 1 packet BID [facility] Administration Ranitidine HCl 150 mg 08/25/18 22:00 09/06/18 10:09 Zantac Oral Solution - PEG 150 mg BID [facility] Administration Warfarin Sodium 5 mg 09/06/18 18:00 Coumadin - PO TuTh@1800 [facility] Warfarin Sodium 2.5 mg 09/07/18 18:00 Coumadin - PO SuMoWeFrSa@1800 [facility] Impression: Influenza S/P allogenic trnasplant GVHD Anemia Continue dex and Jakofi A/C on coumadin
--- NOTE | 2018-09-06 15:58 | PN ---
Progress Note, Physician History of Present Illness: pulmonary alert,c/o increased sob,congestion,hypoxic on bipap 50% fio2,sat79% - Current Medication List Current Medications: Active Medications Acetaminophen (Tylenol Oral Solution -) 650 mg PO Q6H PRN PRN Reason: FEVER Last Admin: 09/03/18 16:39 Dose: 650 mg Albuterol Sulfate (Ventolin 0.083% Nebulizer Soln -) 1 amp NEB Q6H PRN PRN Reason: SHORT OF BREATH/WHEEZING Last Admin: 09/06/18 15:20 Dose: 1 amp Amino Acids (Prosource No Carb Liquid Pkt) 30 ml PO BID@0800,1730 [facility] Last Admin: 09/06/18 10:09 Dose: 30 ml Artificial Tears (Artificial Tears) 1 drop OU Q6H PRN PRN Reason: DRY EYES Dexamethasone (Decadron Liquid -) 0.5 mg PO DAILY [facility] Last Admin: 09/06/18 10:08 Dose: 0.5 mg Gabapentin (Neurontin Oral Liquid -) 250 mg PEG TID [facility] Last Admin: 09/06/18 15:18 Dose: 250 mg Guaifenesin (Robitussin Dm -) 10 ml PO Q6H PRN PRN Reason: COUGH Last Admin: 09/06/18 15:17 Dose: 10 ml Insulin Aspart (Novolog Vial Sliding Scale -) 1 vial SQ ACHS [facility]; Protocol Last Admin: 09/06/18 11:33 Dose: Not Given Levetiracetam (Keppra Oral Solution -) 500 mg GT BID [facility] Last Admin: 09/06/18 10:08 Dose: 500 mg Lidocaine (Lidoderm Patch -) 1 patch TP DAILY [facility] Last Admin: 09/06/18 10:22 Dose: Not Given Loperamide HCl (Imodium Liquid -) 2 mg PEG DAILY [facility] Last Admin: 09/06/18 10:08 Dose: 2 mg Metoprolol Tartrate (Lopressor -) 25 mg PO BID [facility] Last Admin: 09/06/18 10:22 Dose: 25 mg Miscellaneous (Lidoderm Patch Removal) 1 each MC DAILY@2200 [facility] Last Admin: 09/05/18 22:34 Dose: Not Given Nitroglycerin (Nitrostat -) 0.4 mg SL Q5M PRN PRN Reason: FOR CHEST PAIN Non-Formulary Medication (Ruxolitinib Phosphate [Jakafi]) 5 mg GT BID [facility] Last Admin: 09/06/18 10:09 Dose: 5 mg Oxycodone HCl (Roxicodone -) 5 mg PO Q6H PRN PRN Reason: PAIN LEVEL 7 - 10 Last Admin: 09/05/18 22:45 Dose: 5 mg Potassium Chloride (Potassium Chloride Oral Liquid) 40 meq GT DAILY [facility] Last Admin: 09/06/18 10:09 Dose: 40 meq Potassium Phos/Sodium Phos (Phos-Nak Packet -) 1 packet PO BID [facility] Last Admin: 09/06/18 10:08 Dose: 1 packet Ranitidine HCl (Zantac Oral Solution -) 150 mg PEG BID [facility] Last Admin: 09/06/18 10:09 Dose: 150 mg Warfarin Sodium (Coumadin -) 5 mg PO TuTh@1800 [facility] Warfarin Sodium (Coumadin -) 2.5 mg PO SuMoWeFrSa@1800 [facility] - Objective Vital Signs: Vital Signs Temperature 97.9 F 09/06/18 13:45 Pulse Rate 86 09/06/18 13:45 Respiratory Rate 12 09/06/18 13:45 Blood Pressure 102/73 09/06/18 13:45 O2 Sat by Pulse Oximetry (%) 100 09/06/18 10:00 Constitutional: Yes: Anxious, Mild Distress Eyes: Yes: WNL HENT: Yes: WNL Neck: Yes: WNL Cardiovascular: Yes: Regular Rate and Rhythm, S1, S2 Respiratory: Yes: Rhonchi (castro rhonchi l>r) Gastrointestinal: Yes: Normal Bowel Sounds, Soft Extremities: Yes: WNL Edema: Yes (trace) Labs: CBC, BMP 09/06/18 05:40 09/06/18 05:40 INR, PTT INR 1.29 (0.83-1.09) H 09/06/18 05:40 Problem List - Problems (1) Acute hypoxemic respiratory failure Code(s): J96.01 - ACUTE RESPIRATORY FAILURE WITH HYPOXIA Assessment/Plan Problem List - Problems (1) Hodgkin lymphoma Code(s): C81.90 - HODGKIN LYMPHOMA, UNSPECIFIED, UNSPECIFIED SITE (2) Hypoxia Code(s): R09.02 - HYPOXEMIA (3) Influenza A Code(s): J10.1 - FLU DUE TO OTH IDENT INFLUENZA VIRUS W OTH RESP MANIFEST (4) SIRS (systemic inflammatory response syndrome) Code(s): R65.10 - SIRS OF NON-INFECTIOUS ORIGIN W/O ACUTE ORGAN DYSFUNCTION (5) Tachycardia Code(s): R00.0 - TACHYCARDIA, UNSPECIFIED Assessment/Plan IMP ACUTE HYPOXEMIC RESPIRATORY FAILURE PNEUMONIA SIRS INFLUENZA H/O HODGKIN LYMPHOMA S/P BMT,ON CHEMO PLAN O2 NIPPV NEEDED TO MAINTAIN SAT90% OR > SUPPLEMENTAL O2 ANTICOAGULATION HEPARIN-COUMADIN MONITOR LYTES STAT CHEST X-RAY DR WILSON
[2018-09-06] MEDS ORDERED: HEPARIN NA (PORCINE) 5,000 UNITS/ML 1ML VIAL IVPUSH PRN ×4 (16:01→16:11)
[2018-09-06] MEDS ORDERED: HEPARIN SOD,PORK IN 0.45% NACL 25,000 UNITS/500 ML INFUS.BAG IVPB SCH (16:15)
[2018-09-06] MEDS: oxyCODONE HCL 5 MG TABLET PO PRN (17:15)
[2018-09-06] MEDS ORDERED: WARFARIN NA 5 MG TABLET (UD) PO SCH (18:00)
[2018-09-06] MEDS: HEPARIN SOD,PORK IN 0.45% NACL 25,000 UNITS/500 ML INFUS.BAG IVPB SCH (18:36)
[2018-09-06] MEDS: LIDOCAINE PATCH REMOVAL MC SCH (22:43)
[2018-09-07] MEDS: INSULIN SLIDING SCALE (NOVOLOG) 1 VIAL SQ SCH ×4 (06:36→21:42)
[2018-09-07] MEDS: GABAPENTIN 250 MG/5 ML ORAL SOLUTION, 470 ML BOTTLE PEG SCH ×3 (06:36→21:42)
[2018-09-07] MEDS ORDERED: PT OWN MED DRAWER 7, Y5N ONE (09:51)
[2018-09-07] MEDS: guaiFENesin/D-METHORPHAN HB 10 ML UNIT-DOSE CUPS PO PRN ×3 (09:59→21:56)
[2018-09-07] MEDS: AMINO ACIDS/PROTEIN HYDROLYS 30 ML LIQUID.PKT PO SCH ×2 (10:01→16:39)
[2018-09-07] MEDS: POTASSIUM CHLORIDE ORAL LIQUID 20 MEQ/15 ML GT SCH (10:01)
[2018-09-07] MEDS: DEXAMETHASONE LIQUID 0.5 MG/5 ML 240 ML BULK BOTTLE PO SCH (10:01)
[2018-09-07] MEDS: NAPH,MB-DB/K PH,MBDB POWDER PACKET PO SCH ×2 (10:01→21:40)
[2018-09-07] MEDS: METOPROLOL TARTRATE 25 MG TABLET (FP) PO SCH ×2 (10:01→21:40)
[2018-09-07] MEDS: levETIRAcetam 500 MG/5 ML ORAL SOLUTION (UNIT-DOSE CUPS) GT SCH ×2 (10:02→21:40)
[2018-09-07] MEDS: LOPERAMIDE HCL 1 MG/5 ML UNIT DOSE CUP PEG SCH (10:02)
[2018-09-07] MEDS: RUXOLITINIB PHOSPHATE 5 MG GT SCH ×2 (10:03→21:40)
[2018-09-07] MEDS: RANITIDINE HCL 150 MG/10 ML UNIT-DOSE PEG SCH ×2 (10:03→21:40)
[2018-09-07] MEDS: LIDOCAINE 5% TOPICAL PATCH TP SCH (10:03)
--- NOTE | 2018-09-07 10:49 | PN ---
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 She reports that she has Imtrk-Uexxgu-Adyi disease and her doctor said she needs chopped food because of it. 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 Pt has a PEG but reports that it is used only for medication. MBS performed 08/26. Limited asserssment of esophagus in upright but grossly wnl Trial of Chopped,reg diet RD consult/menu selection HOB elevated during and after meals Alternate solids with liquids,complete meal with liquid Supervision with diet upgrade to determine tolerance
--- NOTE | 2018-09-07 11:35 | PN ---
Progress Note, Physician Chief Complaint: Influenza A+ SIRS hypoxia History of Present Illness: Extremely lethargic Influenza + Seen by ID Finished Tamiflu and IV abx on Venti mask Tachycardia improved d/c tele afebrile Feeling better On heparin drip until therapeutic on Warfarin Daily PT/INR's - Current Medication List Current Medications: Active Medications Acetaminophen (Tylenol Oral Solution -) 650 mg PO Q6H PRN PRN Reason: FEVER Last Admin: 09/03/18 16:39 Dose: 650 mg Albuterol Sulfate (Ventolin 0.083% Nebulizer Soln -) 1 amp NEB Q6H PRN PRN Reason: SHORT OF BREATH/WHEEZING Last Admin: 09/06/18 23:29 Dose: 1 amp Amino Acids (Prosource No Carb Liquid Pkt) 30 ml PO BID@0800,1730 [facility] Last Admin: 09/07/18 10:01 Dose: 30 ml Artificial Tears (Artificial Tears) 1 drop OU Q6H PRN PRN Reason: DRY EYES Dexamethasone (Decadron Liquid -) 0.5 mg PO DAILY [facility] Last Admin: 09/07/18 10:01 Dose: 0.5 mg Gabapentin (Neurontin Oral Liquid -) 250 mg PEG TID [facility] Last Admin: 09/07/18 06:36 Dose: 250 mg Guaifenesin (Robitussin Dm -) 10 ml PO Q6H PRN PRN Reason: COUGH Last Admin: 09/07/18 09:59 Dose: 10 ml Heparin Sodium (Porcine) (Heparin -) 1,000 unit IVPUSH PRN PRN PRN Reason: Heparin Heparin Sodium (Porcine) (Heparin -) 5,000 unit IVPUSH PRN PRN PRN Reason: Heparin HEPARIN SOD,PORK IN 0.45% NACL (Heparin-1/2ns 25,000 Units/500) 25,000 units in 500 mls @ 20 mls/hr IVPB TITR [facility]; Protocol Last Titration: 09/07/18 03:00 Dose: 700 units/hr, 14 mls/hr Insulin Aspart (Novolog Vial Sliding Scale -) 1 vial SQ ACHS [facility]; Protocol Last Admin: 09/07/18 06:36 Dose: Not Given Levetiracetam (Keppra Oral Solution -) 500 mg GT BID [facility] Last Admin: 09/07/18 10:02 Dose: 500 mg Lidocaine (Lidoderm Patch -) 1 patch TP DAILY [facility] Last Admin: 09/07/18 10:03 Dose: Not Given Loperamide HCl (Imodium Liquid -) 2 mg PEG DAILY [facility] Last Admin: 09/07/18 10:02 Dose: 2 mg Metoprolol Tartrate (Lopressor -) 25 mg PO BID [facility] Last Admin: 09/07/18 10:01 Dose: 25 mg Miscellaneous (Lidoderm Patch Removal) 1 each MC DAILY@2200 [facility] Last Admin: 09/06/18 22:43 Dose: Not Given Nitroglycerin (Nitrostat -) 0.4 mg SL Q5M PRN PRN Reason: FOR CHEST PAIN Non-Formulary Medication (Ruxolitinib Phosphate [Jakafi]) 5 mg GT BID [facility] Last Admin: 09/07/18 10:03 Dose: 5 mg Oxycodone HCl (Roxicodone -) 5 mg PO Q6H PRN PRN Reason: PAIN LEVEL 7 - 10 Last Admin: 09/06/18 17:15 Dose: 5 mg Potassium Chloride (Potassium Chloride Oral Liquid) 40 meq GT DAILY [facility] Last Admin: 09/07/18 10:01 Dose: 40 meq Potassium Phos/Sodium Phos (Phos-Nak Packet -) 1 packet PO BID [facility] Last Admin: 09/07/18 10:01 Dose: 1 packet Ranitidine HCl (Zantac Oral Solution -) 150 mg PEG BID [facility] Last Admin: 09/07/18 10:03 Dose: 150 mg Warfarin Sodium (Coumadin -) 5 mg PO TuTh@1800 [facility] Last Admin: 09/06/18 17:08 Dose: 5 mg Warfarin Sodium (Coumadin -) 2.5 mg PO SuMoWeFrSa@1800 [facility] - Objective Vital Signs: Vital Signs Temperature 98 F 09/07/18 05:00 Pulse Rate 92 H 09/07/18 05:00 Respiratory Rate 18 09/07/18 05:00 Blood Pressure 125/80 09/07/18 05:00 O2 Sat by Pulse Oximetry (%) 97 09/06/18 22:00 Constitutional: Yes: Well Nourished, No Distress, Calm, Other (weak appearing) Cardiovascular: Yes: Regular Rate and Rhythm Respiratory: Yes: Diminished (Bibasilar), On Venti-Mask Gastrointestinal: Yes: Normal Bowel Sounds, Soft Musculoskeletal: Yes: Muscle Weakness Extremities: Yes: WNL Edema: No Peripheral Pulses WNL: Yes Neurological: Yes: Alert, Oriented Psychiatric: Yes: Alert, Oriented Labs: CBC, BMP 09/06/18 05:40 09/06/18 05:40 INR, PTT INR 1.29 (0.83-1.09) H 09/06/18 05:40 Problem List - Problems (1) Hypoxia Assessment/Plan: -Venti mask keep Spo2>90% -Bipap PRN -Pulmonary consult -bronchodilators -Decadron, moniter lytes closely Code(s): R09.02 - HYPOXEMIA (2) Tachycardia Assessment/Plan: -resolved Code(s): R00.0 - TACHYCARDIA, UNSPECIFIED (3) Influenza A Assessment/Plan: -Tamiflu completed -afebrile -ID consult -Tylenol for fever Code(s): J10.1 - FLU DUE TO OTH IDENT INFLUENZA VIRUS W OTH RESP MANIFEST (4) SIRS (systemic inflammatory response syndrome) Code(s): R65.10 - SIRS OF NON-INFECTIOUS ORIGIN W/O ACUTE ORGAN DYSFUNCTION (5) Hodgkin lymphoma Assessment/Plan: -Hematology/onc consult on board -Continue decadron -Jakafi Code(s): C81.90 - HODGKIN LYMPHOMA, UNSPECIFIED, UNSPECIFIED SITE (6) Anticoagulant long-term use Assessment/Plan: -On Warfarin due to hx of CVA -Monitor INR trend- -Warfarin 5 mg today -On heparin drip to bridge -INR goal 2-3 -daily INR's Code(s): Z79.01 - SHELTER (CURRENT) USE OF ANTICOAGULANTS Assessment/Plan See problem list DVT prophylaxis Physical therapy Advanced to soft diet been accepted at [facility], needs hematology clearance and to be off heparin drip
[2018-09-07 11:55] LABS: INR 1.46 (0.83-1.09); PROTHROMBIN TIME (PATIENT) 17.3 SEC (9.7-13.0)
[2018-09-07 12:28] LABS: ACTIVATED PTT 236.3 SECONDS (25.2-36.5)
--- NOTE | 2018-09-07 12:34 | PN ---
Progress Note, Physician History of Present Illness: pulmonary alert,more comfortable on o2 vm,-resp distress - Current Medication List Current Medications: Active Medications Acetaminophen (Tylenol Oral Solution -) 650 mg PO Q6H PRN PRN Reason: FEVER Last Admin: 09/03/18 16:39 Dose: 650 mg Albuterol Sulfate (Ventolin 0.083% Nebulizer Soln -) 1 amp NEB Q6H PRN PRN Reason: SHORT OF BREATH/WHEEZING Last Admin: 09/06/18 23:29 Dose: 1 amp Amino Acids (Prosource No Carb Liquid Pkt) 30 ml PO BID@0800,1730 [facility] Last Admin: 09/07/18 10:01 Dose: 30 ml Artificial Tears (Artificial Tears) 1 drop OU Q6H PRN PRN Reason: DRY EYES Dexamethasone (Decadron Liquid -) 0.5 mg PO DAILY [facility] Last Admin: 09/07/18 10:01 Dose: 0.5 mg Gabapentin (Neurontin Oral Liquid -) 250 mg PEG TID [facility] Last Admin: 09/07/18 06:36 Dose: 250 mg Guaifenesin (Robitussin Dm -) 10 ml PO Q6H PRN PRN Reason: COUGH Last Admin: 09/07/18 09:59 Dose: 10 ml Heparin Sodium (Porcine) (Heparin -) 1,000 unit IVPUSH PRN PRN PRN Reason: Heparin Heparin Sodium (Porcine) (Heparin -) 5,000 unit IVPUSH PRN PRN PRN Reason: Heparin HEPARIN SOD,PORK IN 0.45% NACL (Heparin-1/2ns 25,000 Units/500) 25,000 units in 500 mls @ 20 mls/hr IVPB TITR [facility]; Protocol Last Titration: 09/07/18 03:00 Dose: 700 units/hr, 14 mls/hr Insulin Aspart (Novolog Vial Sliding Scale -) 1 vial SQ ACHS [facility]; Protocol Last Admin: 09/07/18 12:09 Dose: Not Given Levetiracetam (Keppra Oral Solution -) 500 mg GT BID [facility] Last Admin: 09/07/18 10:02 Dose: 500 mg Lidocaine (Lidoderm Patch -) 1 patch TP DAILY [facility] Last Admin: 09/07/18 10:03 Dose: Not Given Loperamide HCl (Imodium Liquid -) 2 mg PEG DAILY [facility] Last Admin: 09/07/18 10:02 Dose: 2 mg Metoprolol Tartrate (Lopressor -) 25 mg PO BID [facility] Last Admin: 09/07/18 10:01 Dose: 25 mg Miscellaneous (Lidoderm Patch Removal) 1 each MC DAILY@2200 [facility] Last Admin: 09/06/18 22:43 Dose: Not Given Nitroglycerin (Nitrostat -) 0.4 mg SL Q5M PRN PRN Reason: FOR CHEST PAIN Non-Formulary Medication (Ruxolitinib Phosphate [Jakafi]) 5 mg GT BID [facility] Last Admin: 09/07/18 10:03 Dose: 5 mg Oxycodone HCl (Roxicodone -) 5 mg PO Q6H PRN PRN Reason: PAIN LEVEL 7 - 10 Last Admin: 09/06/18 17:15 Dose: 5 mg Potassium Chloride (Potassium Chloride Oral Liquid) 40 meq GT DAILY [facility] Last Admin: 09/07/18 10:01 Dose: 40 meq Potassium Phos/Sodium Phos (Phos-Nak Packet -) 1 packet PO BID [facility] Last Admin: 09/07/18 10:01 Dose: 1 packet Ranitidine HCl (Zantac Oral Solution -) 150 mg PEG BID [facility] Last Admin: 09/07/18 10:03 Dose: 150 mg Warfarin Sodium (Coumadin -) 5 mg PO TuTh@1800 [facility] Last Admin: 09/06/18 17:08 Dose: 5 mg Warfarin Sodium (Coumadin -) 2.5 mg PO SuMoWeFrSa@1800 [facility] Warfarin Sodium (Coumadin -) 5 mg PO ONCE@1800 ONE Stop: 09/07/18 18:01 - Objective Vital Signs: Vital Signs Temperature 97.4 F L 09/07/18 09:00 Pulse Rate 94 H 09/07/18 09:00 Respiratory Rate 18 09/07/18 09:00 Blood Pressure 121/80 09/07/18 09:00 O2 Sat by Pulse Oximetry (%) 98 09/07/18 10:00 Constitutional: Yes: Well Nourished, Calm HENT: Yes: WNL Neck: Yes: WNL Cardiovascular: Yes: Regular Rate and Rhythm, S1, S2 Respiratory: Yes: Rhonchi (less rhonchi) Gastrointestinal: Yes: Normal Bowel Sounds, Soft Extremities: Yes: WNL Edema: Yes Edema: LLE: Trace, RLE: Trace Labs: CBC, BMP 09/06/18 05:40 09/06/18 05:40 INR, PTT INR 1.46 (0.83-1.09) H 09/07/18 11:00 - ....Imaging Chest X-ray: Report Reviewed, Image Reviewed Problem List - Problems (1) Acute hypoxemic respiratory failure Code(s): J96.01 - ACUTE RESPIRATORY FAILURE WITH HYPOXIA Assessment/Plan Problem List - Problems (1) Hodgkin lymphoma Code(s): C81.90 - HODGKIN LYMPHOMA, UNSPECIFIED, UNSPECIFIED SITE (2) Hypoxia Code(s): R09.02 - HYPOXEMIA (3) Influenza A Code(s): J10.1 - FLU DUE TO OTH IDENT INFLUENZA VIRUS W OTH RESP MANIFEST (4) SIRS (systemic inflammatory response syndrome) Code(s): R65.10 - SIRS OF NON-INFECTIOUS ORIGIN W/O ACUTE ORGAN DYSFUNCTION (5) Tachycardia Code(s): R00.0 - TACHYCARDIA, UNSPECIFIED Assessment/Plan IMP ACUTE HYPOXEMIC RESPIRATORY FAILURE PNEUMONIA SIRS INFLUENZA H/O HODGKIN LYMPHOMA S/P BMT,ON CHEMO PLAN O2 NIPPV NEEDED TO MAINTAIN SAT90% OR > SUPPLEMENTAL O2 ANTICOAGULATION HEPARIN-COUMADIN MONITOR NENA WILSON
[2018-09-07] MEDS: oxyCODONE HCL 5 MG TABLET PO PRN ×2 (16:11→21:58)
[2018-09-07] MEDS: ACETAMINOPHEN 650 MG/20.3 ML ORAL SOLUTION (CUPS) PO PRN ×2 (16:12→21:57)
[2018-09-07] MEDS: HEPARIN SOD,PORK IN 0.45% NACL 25,000 UNITS/500 ML INFUS.BAG IVPB SCH (16:32)
--- NOTE | 2018-09-07 17:47 | PN ---
Progress Note (short form) - Note Progress Note: Patient seen and examined On O-2 mask. Remains with exacerbations of SOB and dyspnea . Last Vital Signs Temp Pulse Resp BP Pulse Ox 98.5 F 88 14 96/61 98 09/07/18 14:25 09/07/18 14:25 09/07/18 14:25 09/07/18 14:25 09/07/18 10:00 Lungs - poor inspiratory effort Cor-rsr Abdomen soft Ext - LE edema CBC, BMP 09/06/18 05:40 09/06/18 05:40 Chest X-ray --09/06 increase in atelectasis/infiltates Lower lobes Current Medications Generic Name Dose Route Start Last Admin Trade Name Freq PRN Reason Stop Dose Admin Acetaminophen 650 mg 08/26/18 12:11 09/07/18 16:12 Tylenol Oral Solution - PO 650 mg Q6H PRN Administration FEVER Albuterol Sulfate 1 amp 08/25/18 18:54 09/06/18 23:29 Ventolin 0.083% Nebulizer Soln - NEB 1 amp Q6H PRN Administration SHORT OF BREATH/WHEEZING Amino Acids 30 ml 09/02/18 17:30 09/07/18 16:39 Prosource No Carb Liquid Pkt PO 30 ml BID@0800,1730 [facility] Administration Artificial Tears 1 drop 08/25/18 18:54 Artificial Tears OU Q6H PRN DRY EYES Dexamethasone 0.5 mg 08/26/18 10:00 09/07/18 10:01 Decadron Liquid - PO 0.5 mg DAILY [facility] Administration Gabapentin 250 mg 08/25/18 22:00 09/07/18 13:37 Neurontin Oral Liquid - PEG 250 mg TID [facility] Administration Guaifenesin 10 ml 08/25/18 18:54 09/07/18 16:10 Robitussin Dm - PO 10 ml Q6H PRN Administration COUGH Heparin Sodium (Porcine) 1,000 unit 09/06/18 16:11 Heparin - IVPUSH PRN PRN Heparin Heparin Sodium (Porcine) 5,000 unit 09/06/18 16:11 Heparin - IVPUSH PRN PRN Heparin HEPARIN SOD,PORK IN 0.45% NACL 25,000 units in 500 mls @ 20 mls/hr 09/06/18 16 :15 03/20/19 16:32 Heparin-1/2ns 25,000 Units/500 IVPB Not Given TITR [facility] Protocol 1,000 UNITS/HR Insulin Aspart 1 vial 08/25/18 22:00 09/07/18 16:32 Novolog Vial Sliding Scale - SQ Not Given ACHS [facility] Protocol Levetiracetam 500 mg 08/25/18 22:00 09/07/18 10:02 Keppra Oral Solution - GT 500 mg BID [facility] Administration Lidocaine 1 patch 08/26/18 10:00 09/07/18 10:03 Lidoderm Patch - TP Not Given DAILY [facility] Loperamide HCl 2 mg 08/26/18 10:00 09/07/18 10:02 Imodium Liquid - PEG 2 mg DAILY [facility] Administration Metoprolol Tartrate 25 mg 08/25/18 22:00 09/07/18 10:01 Lopressor - PO 25 mg BID [facility] Administration Miscellaneous 1 each 08/25/18 22:00 09/06/18 22:43 Lidoderm Patch Removal MC Not Given DAILY@2200 [facility] Nitroglycerin 0.4 mg 08/25/18 18:54 Nitrostat - SL Q5M PRN FOR CHEST PAIN Non-Formulary Medication 5 mg 08/25/18 22:00 09/07/18 10:03 Ruxolitinib Phosphate [Jakafi] GT 5 mg BID [facility] Administration Oxycodone HCl 5 mg 09/01/18 21:02 09/07/18 16:11 Roxicodone - PO 5 mg Q6H PRN Administration PAIN LEVEL 7 - 10 Potassium Chloride 40 meq 08/26/18 10:00 09/07/18 10:01 Potassium Chloride Oral Liquid GT 40 meq DAILY [facility] Administration Potassium Phos/Sodium Phos 1 packet 08/25/18 22:00 09/07/18 10:01 Phos-Nak Packet - PO 1 packet BID [facility] Administration Ranitidine HCl 150 mg 08/25/18 22:00 09/07/18 10:03 Zantac Oral Solution - PEG 150 mg BID [facility] Administration Warfarin Sodium 5 mg 09/06/18 18:00 09/06/18 17:08 Coumadin - PO 5 mg TuTh@1800 [facility] Administration Warfarin Sodium 2.5 mg 09/07/18 18:00 Coumadin - PO SuMoWeFrSa@1800 [facility] Warfarin Sodium 5 mg 09/07/18 18:00 Coumadin - PO 09/07/18 18:01 ONCE@1800 ONE Impression: Influenza Pneumonia Atelectasis Anemia 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
[2018-09-07] MEDS ORDERED: WARFARIN NA 2.5 MG TABLET (FP) PO SCH (18:00)
[2018-09-07] MEDS ORDERED: WARFARIN NA 5 MG TABLET (UD) PO ONE (18:00)
[2018-09-07] MEDS: LIDOCAINE PATCH REMOVAL MC SCH (21:41)
[2018-09-08] MEDS ORDERED: PT OWN MED DRAWER 7, Y5N ONE (05:23)
[2018-09-08] MEDS: guaiFENesin/D-METHORPHAN HB 10 ML UNIT-DOSE CUPS PO PRN ×2 (05:56→16:02)
[2018-09-08] MEDS: oxyCODONE HCL 5 MG TABLET PO PRN ×2 (05:57→22:22)
[2018-09-08] MEDS: ACETAMINOPHEN 650 MG/20.3 ML ORAL SOLUTION (CUPS) PO PRN (05:57)
[2018-09-08] MEDS: INSULIN SLIDING SCALE (NOVOLOG) 1 VIAL SQ SCH ×4 (06:16→22:24)
[2018-09-08] MEDS: GABAPENTIN 250 MG/5 ML ORAL SOLUTION, 470 ML BOTTLE PEG SCH ×3 (06:59→22:22)
[2018-09-08 08:21] LABS: HEMATOCRIT 22.8 % (32.4-45.2); HEMOGLOBIN 7.3 GM/dL (10.7-15.3); MCH 25.8 pg (25.7-33.7); MEAN CELL VOLUME 80.5 fl (80-96); MEAN PLT VOLUME 9.2 fl (7.5-11.1); PLATELET COUNT 261 K/MM3 (134-434); RBC 2.83 M/mm3 (3.60-5.2); RDW 26.3 % (11.6-15.6)
[2018-09-08 08:37] LABS: INR 1.58 (0.83-1.09); PROTHROMBIN TIME (PATIENT) 18.7 SEC (9.7-13.0)
[2018-09-08] MEDS: METOPROLOL TARTRATE 25 MG TABLET (FP) PO SCH ×2 (10:50→22:24)
[2018-09-08] MEDS: NAPH,MB-DB/K PH,MBDB POWDER PACKET PO SCH ×2 (10:50→22:22)
[2018-09-08] MEDS: LOPERAMIDE HCL 1 MG/5 ML UNIT DOSE CUP PEG SCH (10:50)
[2018-09-08] MEDS: DEXAMETHASONE LIQUID 0.5 MG/5 ML 240 ML BULK BOTTLE PO SCH (10:50)
[2018-09-08] MEDS: AMINO ACIDS/PROTEIN HYDROLYS 30 ML LIQUID.PKT PO SCH ×2 (10:50→17:35)
[2018-09-08] MEDS: levETIRAcetam 500 MG/5 ML ORAL SOLUTION (UNIT-DOSE CUPS) GT SCH ×2 (10:51→22:23)
[2018-09-08] MEDS: LIDOCAINE 5% TOPICAL PATCH TP SCH (10:51)
[2018-09-08] MEDS: RANITIDINE HCL 150 MG/10 ML UNIT-DOSE PEG SCH ×2 (10:52→22:23)
[2018-09-08] MEDS: RUXOLITINIB PHOSPHATE 5 MG GT SCH ×2 (10:52→22:24)
[2018-09-08] MEDS: POTASSIUM CHLORIDE ORAL LIQUID 20 MEQ/15 ML GT SCH (10:57)
--- NOTE | 2018-09-08 11:41 | PN ---
Progress Note, Physician Chief Complaint: Influenza A+ SIRS hypoxia History of Present Illness: Extremely lethargic Influenza + Seen by ID Finished Tamiflu and IV abx on Venti mask Tachycardia improved d/c tele afebrile Feeling better On heparin drip until therapeutic on Warfarin Daily PT/INR's drop in H/H today - Current Medication List Current Medications: Active Medications Acetaminophen (Tylenol Oral Solution -) 650 mg PO Q6H PRN PRN Reason: FEVER Last Admin: 09/08/18 05:57 Dose: 650 mg Albuterol Sulfate (Ventolin 0.083% Nebulizer Soln -) 1 amp NEB Q6H PRN PRN Reason: SHORT OF BREATH/WHEEZING Last Admin: 09/06/18 23:29 Dose: 1 amp Amino Acids (Prosource No Carb Liquid Pkt) 30 ml PO BID@0800,1730 [facility] Last Admin: 09/08/18 10:50 Dose: 30 ml Artificial Tears (Artificial Tears) 1 drop OU Q6H PRN PRN Reason: DRY EYES Dexamethasone (Decadron Liquid -) 0.5 mg PO DAILY [facility] Last Admin: 09/08/18 10:50 Dose: 0.5 mg Gabapentin (Neurontin Oral Liquid -) 250 mg PEG TID [facility] Last Admin: 09/08/18 06:59 Dose: 250 mg Guaifenesin (Robitussin Dm -) 10 ml PO Q6H PRN PRN Reason: COUGH Last Admin: 09/08/18 05:56 Dose: 10 ml Heparin Sodium (Porcine) (Heparin -) 1,000 unit IVPUSH PRN PRN PRN Reason: Heparin Last Admin: 09/07/18 20:26 Dose: 1,000 unit Heparin Sodium (Porcine) (Heparin -) 5,000 unit IVPUSH PRN PRN PRN Reason: Heparin HEPARIN SOD,PORK IN 0.45% NACL (Heparin-1/2ns 25,000 Units/500) 25,000 units in 500 mls @ 20 mls/hr IVPB TITR [facility]; Protocol Last Titration: 09/08/18 04:00 Dose: 450 units/hr, 9 mls/hr Insulin Aspart (Novolog Vial Sliding Scale -) 1 vial SQ ACHS [facility]; Protocol Last Admin: 09/08/18 11:30 Dose: Not Given Levetiracetam (Keppra Oral Solution -) 500 mg GT BID [facility] Last Admin: 09/08/18 10:51 Dose: 500 mg Lidocaine (Lidoderm Patch -) 1 patch TP DAILY [facility] Last Admin: 09/08/18 10:51 Dose: Not Given Loperamide HCl (Imodium Liquid -) 2 mg PEG DAILY [facility] Last Admin: 09/08/18 10:50 Dose: 2 mg Metoprolol Tartrate (Lopressor -) 25 mg PO BID [facility] Last Admin: 09/08/18 10:50 Dose: 25 mg Miscellaneous (Lidoderm Patch Removal) 1 each MC DAILY@2199 [facility] Last Admin: 09/07/18 21:41 Dose: Not Given Nitroglycerin (Nitrostat -) 0.4 mg SL Q5M PRN PRN Reason: FOR CHEST PAIN Non-Formulary Medication (Ruxolitinib Phosphate [Jakafi]) 5 mg GT BID [facility] Last Admin: 09/08/18 10:52 Dose: 5 mg Oxycodone HCl (Roxicodone -) 5 mg PO Q6H PRN PRN Reason: PAIN LEVEL 7 - 10 Last Admin: 09/08/18 05:57 Dose: 5 mg Potassium Chloride (Potassium Chloride Oral Liquid) 40 meq GT DAILY [facility] Last Admin: 09/08/18 10:57 Dose: 40 meq Potassium Phos/Sodium Phos (Phos-Nak Packet -) 1 packet PO BID [facility] Last Admin: 09/08/18 10:50 Dose: 1 packet Ranitidine HCl (Zantac Oral Solution -) 150 mg PEG BID [facility] Last Admin: 09/08/18 10:52 Dose: 150 mg Warfarin Sodium (Coumadin -) 2.5 mg PO SuMoWeFrSa@1800 [facility] Warfarin Sodium (Coumadin -) 7.5 mg PO ONCE@1800 ONE Stop: 09/08/18 18:01 - Objective Vital Signs: Vital Signs Temperature 98.0 F 09/07/18 21:00 Pulse Rate 77 09/07/18 21:00 Respiratory Rate 20 09/07/18 21:00 Blood Pressure 103/72 09/07/18 21:00 O2 Sat by Pulse Oximetry (%) 100 09/07/18 22:00 Constitutional: Yes: Well Nourished, No Distress, Calm Cardiovascular: Yes: Regular Rate and Rhythm Respiratory: Yes: Diminished (bibasilar), On Venti-Mask Gastrointestinal: Yes: WNL Genitourinary: Yes: WNL Musculoskeletal: Yes: Muscle Weakness Extremities: Yes: Other (left hemiparesis) Edema: No Peripheral Pulses WNL: Yes Neurological: Yes: Alert, Oriented Psychiatric: Yes: Alert, Oriented Labs: CBC, BMP 09/08/18 07:15 09/06/18 05:40 INR, PTT INR 1.58 (0.83-1.09) H 09/08/18 07:15 Problem List - Problems (1) Hypoxia Assessment/Plan: -Venti mask keep Spo2>90% -Bipap PRN -Pulmonary consult -bronchodilators -Decadron, moniter lytes closely Code(s): R09.02 - HYPOXEMIA (2) Tachycardia Assessment/Plan: -resolved Code(s): R00.0 - TACHYCARDIA, UNSPECIFIED (3) Influenza A Assessment/Plan: -Tamiflu completed -afebrile -ID consult -Tylenol for fever Code(s): J10.1 - FLU DUE TO OTH IDENT INFLUENZA VIRUS W OTH RESP MANIFEST (4) SIRS (systemic inflammatory response syndrome) Code(s): R65.10 - SIRS OF NON-INFECTIOUS ORIGIN W/O ACUTE ORGAN DYSFUNCTION (5) Hodgkin lymphoma Assessment/Plan: -Hematology/onc consult on board -Continue decadron -Jakafi Code(s): C81.90 - HODGKIN LYMPHOMA, UNSPECIFIED, UNSPECIFIED SITE (6) Anticoagulant long-term use Assessment/Plan: -On Warfarin due to hx of CVA -Monitor INR trend- -Warfarin 5 mg today -On heparin drip to bridge -INR goal 2-3 -daily INR's Code(s): Z79.01 - [employer] (CURRENT) USE OF ANTICOAGULANTS (7) Anemia Assessment/Plan: -Iron, thyroid, B12,stool ob-unremarkable -2/2 to chronic disease? -PRBC x 1 today -repeat CBC 2 hours post PRBC transfusion -Hematology on board-notified Code(s): D64.9 - ANEMIA, UNSPECIFIED Assessment/Plan see problem list
--- NOTE | 2018-09-08 14:10 | PN ---
Progress Note (short form) - Note Progress Note: Patient seen on the Telemetry unit. Breathing seems better today. On VM O2. Apparently did not use NIPPV for over 24 hours. Intake & Output 09/05/18 09/06/18 09/07/18 09/08/18 23:59 23:59 23:59 23:59 Intake Total 850 210 906 445 Output Total 0 Balance 850 210 906 445 Weight 144 lb 4.8 oz Last Vital Signs Temp Pulse Resp BP Pulse Ox 97.6 F 74 12 106/70 100 09/08/18 13:31 09/08/18 13:31 09/08/18 13:31 09/08/18 13:31 09/08/18 10:00 Active Medications Acetaminophen (Tylenol Oral Solution -) 650 mg PO Q6H PRN PRN Reason: FEVER Last Admin: 09/08/18 05:57 Dose: 650 mg Albuterol Sulfate (Ventolin 0.083% Nebulizer Soln -) 1 amp NEB Q6H PRN PRN Reason: SHORT OF BREATH/WHEEZING Last Admin: 09/06/18 23:29 Dose: 1 amp Amino Acids (Prosource No Carb Liquid Pkt) 30 ml PO BID@0800,1730 [facility] Last Admin: 09/08/18 10:50 Dose: 30 ml Artificial Tears (Artificial Tears) 1 drop OU Q6H PRN PRN Reason: DRY EYES Dexamethasone (Decadron Liquid -) 0.5 mg PO DAILY [facility] Last Admin: 09/08/18 10:50 Dose: 0.5 mg Gabapentin (Neurontin Oral Liquid -) 250 mg PEG TID [facility] Last Admin: 09/08/18 13:39 Dose: 250 mg Guaifenesin (Robitussin Dm -) 10 ml PO Q6H PRN PRN Reason: COUGH Last Admin: 09/08/18 05:56 Dose: 10 ml Heparin Sodium (Porcine) (Heparin -) 1,000 unit IVPUSH PRN PRN PRN Reason: Heparin Last Admin: 09/07/18 20:26 Dose: 1,000 unit Heparin Sodium (Porcine) (Heparin -) 5,000 unit IVPUSH PRN PRN PRN Reason: Heparin HEPARIN SOD,PORK IN 0.45% NACL (Heparin-1/2ns 25,000 Units/500) 25,000 units in 500 mls @ 20 mls/hr IVPB TITR [facility]; Protocol Last Titration: 09/08/18 04:00 Dose: 450 units/hr, 9 mls/hr Insulin Aspart (Novolog Vial Sliding Scale -) 1 vial SQ ACHS [facility]; Protocol Last Admin: 09/08/18 11:30 Dose: Not Given Levetiracetam (Keppra Oral Solution -) 500 mg GT BID [facility] Last Admin: 09/08/18 10:51 Dose: 500 mg Lidocaine (Lidoderm Patch -) 1 patch TP DAILY [facility] Last Admin: 09/08/18 10:51 Dose: Not Given Loperamide HCl (Imodium Liquid -) 2 mg PEG DAILY [facility] Last Admin: 09/08/18 10:50 Dose: 2 mg Metoprolol Tartrate (Lopressor -) 25 mg PO BID [facility] Last Admin: 09/08/18 10:50 Dose: 25 mg Miscellaneous (Lidoderm Patch Removal) 1 each MC DAILY@2200 [facility] Last Admin: 09/07/18 21:41 Dose: Not Given Nitroglycerin (Nitrostat -) 0.4 mg SL Q5M PRN PRN Reason: FOR CHEST PAIN Non-Formulary Medication (Ruxolitinib Phosphate [Jakafi]) 5 mg GT BID [facility] Last Admin: 09/08/18 10:52 Dose: 5 mg Oxycodone HCl (Roxicodone -) 5 mg PO Q6H PRN PRN Reason: PAIN LEVEL 7 - 10 Last Admin: 09/08/18 05:57 Dose: 5 mg Potassium Chloride (Potassium Chloride Oral Liquid) 40 meq GT DAILY [facility] Last Admin: 09/08/18 10:57 Dose: 40 meq Potassium Phos/Sodium Phos (Phos-Nak Packet -) 1 packet PO BID [facility] Last Admin: 09/08/18 10:50 Dose: 1 packet Ranitidine HCl (Zantac Oral Solution -) 150 mg PEG BID [facility] Last Admin: 09/08/18 10:52 Dose: 150 mg Warfarin Sodium (Coumadin -) 2.5 mg PO SuMoWeFrSa@1800 [facility] Warfarin Sodium (Coumadin -) 7.5 mg PO ONCE@1800 [facility] Stop: 09/08/18 18:01 Gen: Awake and alert, less tachypneic Heart: RRR Lung: distant breath sounds, few scattered rhonchi Abd: soft, nontender Ext: trace edema Laboratory Results - last 24 hr 09/07/18 09/07/18 09/08/18 16:24 18:30 03:29 WBC RBC Hgb Hct MCV MCH MCHC RDW Plt Count MPV PT with INR INR PTT (Actin FS) 47.2 H 81.1 H POC Glucometer 94 Blood Type Antibody Screen Crossmatch 09/08/18 09/08/18 09/08/18 07:15 07:15 07:15 WBC 3.0 L RBC 2.83 L Hgb 7.3 L Hct 22.8 L MCV 80.5 MCH 25.8 MCHC 32.0 RDW 26.3 H Plt Count 261 MPV 9.2 PT with INR 18.70 H INR 1.58 H PTT (Actin FS) 47.5 H POC Glucometer Blood Type Antibody Screen Crossmatch 09/08/18 12:10 WBC RBC Hgb Hct MCV MCH MCHC RDW Plt Count MPV PT with INR INR PTT (Actin FS) POC Glucometer Blood Type B POSITIVE Antibody Screen Negative Crossmatch See Detail A/P Acute Hypoxic Respiratory Failure Pneumonia Atelectasis Influenza A Hodgkins Lymphoma Paroxymsal Atrial Fibrillation - VM O2 and can trial NC O2 to maintain saturation 88% To 92% - completed antibiotics - inhaled bronchodilators - O2 to keep SpO2 >90% - NIPPV PRN - incentive spirometry - aspiration precautions - inhaled bronchodilators - continue anticoagulation - continuous pulse oximetry monitoring - At this point there is no Pulmonary contraindication for D/C to SNF. Dr Ramos
--- NOTE | 2018-09-08 14:56 | PN ---
Progress Note, [employer] - Note Progress Note: Selected Entries 09/08/18 09/08/18 11:13 13:31 Breakfast 25% Temperature 97.6 F Laboratory Tests 09/08/18 07:15 WBC 3.0 L Pt completed 100% of lunch. Soft diet ordered. Pt reported to be tolerating it well with a good appetite. HOB elevated during and after meals Alternate solids with liquids,complete meal with liquid Supervision with diet upgrade to determine tolerance
[2018-09-08] MEDS: ALBUTEROL SO4 0.083% IH SOL 2.5 MG/3 ML VIAL.NEB. NEB PRN (17:15)
[2018-09-08] MEDS: HEPARIN SOD,PORK IN 0.45% NACL 25,000 UNITS/500 ML INFUS.BAG IVPB SCH (17:54)
[2018-09-08] MEDS ORDERED: WARFARIN NA 7.5 MG TABLET (FP) PO ONE (18:00)
[2018-09-08] MEDS: LIDOCAINE PATCH REMOVAL MC SCH (22:23)
[2018-09-08 22:26] LABS: BASO % 1.6 % (0-2.0); EOS % 2.3 % (0-4.5); HEMATOCRIT 29.8 % (32.4-45.2); LYMPH % 15.2 % (8-40); MCH 27.8 pg (25.7-33.7); MCHC 33.8 g/dl (32.0-36.0); MEAN CELL VOLUME 82.4 fl (80-96); MEAN PLT VOLUME 8.7 fl (7.5-11.1); MONO % 11.5 % (3.8-10.2); NEUT % 69.4 % (42.8-82.8); PLATELET COUNT 251 K/MM3 (134-434); RBC 3.61 M/mm3 (3.60-5.2); RDW 21.6 % (11.6-15.6); WHITE BLOOD COUNT 5.1 K/mm3 (4.0-10.0)
[2018-09-08 23:22] LABS: ANISOCYTOSIS 2+; MACROCYTOSIS 2+; PLATELET ESTIMATE ADEQUATE
[2018-09-09] MEDS ORDERED: PT OWN MED DRAWER 7, Y5N ONE ×2 (01:04→18:36)
[2018-09-09] MEDS: oxyCODONE HCL 5 MG TABLET PO PRN (06:47)
[2018-09-09] MEDS: GABAPENTIN 250 MG/5 ML ORAL SOLUTION, 470 ML BOTTLE PEG SCH ×3 (06:47→21:44)
[2018-09-09] MEDS: ACETAMINOPHEN 650 MG/20.3 ML ORAL SOLUTION (CUPS) PO PRN ×2 (06:48→21:47)
[2018-09-09] MEDS: guaiFENesin/D-METHORPHAN HB 10 ML UNIT-DOSE CUPS PO PRN ×2 (07:05→15:08)
[2018-09-09 07:15] LABS: HEMATOCRIT 29.8 % (32.4-45.2); HEMOGLOBIN 9.9 GM/dL (10.7-15.3); MCH 27.1 pg (25.7-33.7); MCHC 33.3 g/dl (32.0-36.0); MEAN CELL VOLUME 81.5 fl (80-96); MEAN PLT VOLUME 8.6 fl (7.5-11.1); PLATELET COUNT 258 K/MM3 (134-434); RBC 3.65 M/mm3 (3.60-5.2); RDW 21.8 % (11.6-15.6); WHITE BLOOD COUNT 3.8 K/mm3 (4.0-10.0)
[2018-09-09 07:29] LABS: INR 1.63 (0.83-1.09); PROTHROMBIN TIME (PATIENT) 19.3 SEC (9.7-13.0)
[2018-09-09] MEDS: INSULIN SLIDING SCALE (NOVOLOG) 1 VIAL SQ SCH ×4 (08:23→21:44)
[2018-09-09] MEDS: LIDOCAINE 5% TOPICAL PATCH TP SCH (08:27)
[2018-09-09] MEDS: AMINO ACIDS/PROTEIN HYDROLYS 30 ML LIQUID.PKT PO SCH ×2 (08:27→18:22)
[2018-09-09] MEDS: RUXOLITINIB PHOSPHATE 5 MG GT SCH ×2 (08:28→21:44)
[2018-09-09] MEDS: METOPROLOL TARTRATE 25 MG TABLET (FP) PO SCH ×2 (08:28→21:43)
[2018-09-09] MEDS: POTASSIUM CHLORIDE ORAL LIQUID 20 MEQ/15 ML GT SCH (10:00)
--- NOTE | 2018-09-09 10:37 | PN ---
Progress Note, Physician Chief Complaint: Influenza A+ SIRS hypoxia History of Present Illness: Extremely lethargic Influenza + Seen by ID Finished Tamiflu and IV abx on Venti mask Tachycardia improved d/c tele afebrile Feeling better On heparin drip until therapeutic on Warfarin Daily PT/INR's H/H improved after 1 unit of PRBC yesterday INR still subtherapeutic Received Warfarin 7.5 mg yesterday tolerating soft diet - Current Medication List Current Medications: Active Medications Acetaminophen (Tylenol Oral Solution -) 650 mg PO Q6H PRN PRN Reason: FEVER Last Admin: 09/09/18 06:48 Dose: 650 mg Albuterol Sulfate (Ventolin 0.083% Nebulizer Soln -) 1 amp NEB Q6H PRN PRN Reason: SHORT OF BREATH/WHEEZING Last Admin: 09/08/18 17:15 Dose: 1 amp Amino Acids (Prosource No Carb Liquid Pkt) 30 ml PO BID@0800,1730 [facility] Last Admin: 09/08/18 17:35 Dose: 30 ml Artificial Tears (Artificial Tears) 1 drop OU Q6H PRN PRN Reason: DRY EYES Dexamethasone (Decadron Liquid -) 0.5 mg PO DAILY [facility] Last Admin: 09/08/18 10:50 Dose: 0.5 mg Gabapentin (Neurontin Oral Liquid -) 250 mg PEG TID [facility] Last Admin: 09/09/18 06:47 Dose: 250 mg Guaifenesin (Robitussin Dm -) 10 ml PO Q6H PRN PRN Reason: COUGH Last Admin: 09/09/18 07:05 Dose: 10 ml Heparin Sodium (Porcine) (Heparin -) 1,000 unit IVPUSH PRN PRN PRN Reason: Heparin Last Admin: 09/07/18 20:26 Dose: 1,000 unit Heparin Sodium (Porcine) (Heparin -) 5,000 unit IVPUSH PRN PRN PRN Reason: Heparin HEPARIN SOD,PORK IN 0.45% NACL (Heparin-1/2ns 25,000 Units/500) 25,000 units in 500 mls @ 20 mls/hr IVPB TITR [facility]; Protocol Last Admin: 09/08/18 17:54 Dose: 450 units/hr, 9 mls/hr Insulin Aspart (Novolog Vial Sliding Scale -) 1 vial SQ ACHS [facility]; Protocol Last Admin: 09/09/18 08:23 Dose: Not Given Levetiracetam (Keppra Oral Solution -) 500 mg GT BID [facility] Last Admin: 09/08/18 22:23 Dose: 500 mg Lidocaine (Lidoderm Patch -) 1 patch TP DAILY [facility] Last Admin: 09/08/18 10:51 Dose: Not Given Loperamide HCl (Imodium Liquid -) 2 mg PEG DAILY [facility] Last Admin: 09/08/18 10:50 Dose: 2 mg Metoprolol Tartrate (Lopressor -) 25 mg PO BID [facility] Last Admin: 09/08/18 22:24 Dose: 25 mg Miscellaneous (Lidoderm Patch Removal) 1 each MC DAILY@2200 [facility] Last Admin: 09/08/18 22:23 Dose: Not Given Nitroglycerin (Nitrostat -) 0.4 mg SL Q5M PRN PRN Reason: FOR CHEST PAIN Non-Formulary Medication (Ruxolitinib Phosphate [Jakafi]) 5 mg GT BID [facility] Last Admin: 09/08/18 22:24 Dose: 5 mg Oxycodone HCl (Roxicodone -) 5 mg PO Q6H PRN PRN Reason: PAIN LEVEL 7 - 10 Last Admin: 09/09/18 06:47 Dose: 5 mg Potassium Chloride (Potassium Chloride Oral Liquid) 40 meq GT DAILY [facility] Last Admin: 09/08/18 10:57 Dose: 40 meq Potassium Phos/Sodium Phos (Phos-Nak Packet -) 1 packet PO BID [facility] Last Admin: 09/08/18 22:22 Dose: 1 packet Ranitidine HCl (Zantac Oral Solution -) 150 mg PEG BID [facility] Last Admin: 09/08/18 22:23 Dose: 150 mg Warfarin Sodium (Coumadin -) 2.5 mg PO SuMoWeFrSa@1800 [facility] - Objective Vital Signs: Vital Signs Temperature 97.2 F L 09/09/18 07:00 Pulse Rate 79 09/09/18 07:00 Respiratory Rate 20 09/09/18 07:00 Blood Pressure 111/74 09/09/18 07:00 O2 Sat by Pulse Oximetry (%) 99 09/09/18 06:31 Constitutional: Yes: Well Nourished, No Distress, Calm Cardiovascular: Yes: Regular Rate and Rhythm Respiratory: Yes: On Venti-Mask Gastrointestinal: Yes: Normal Bowel Sounds, Soft Genitourinary: Yes: Incontinence Musculoskeletal: Yes: Muscle Weakness Extremities: Yes: WNL Edema: No Peripheral Pulses WNL: Yes Neurological: Yes: Alert, Oriented Psychiatric: Yes: Alert, Oriented Labs: CBC, BMP 09/09/18 07:00 09/06/18 05:40 INR, PTT INR 1.63 (0.83-1.09) H 09/09/18 07:00 Problem List - Problems (1) Hypoxia Assessment/Plan: -Venti mask keep Spo2>90% -Bipap PRN -Pulmonary consult -bronchodilators -Decadron, moniter lytes closely Code(s): R09.02 - HYPOXEMIA (2) Tachycardia Assessment/Plan: -resolved Code(s): R00.0 - TACHYCARDIA, UNSPECIFIED (3) Influenza A Assessment/Plan: -Tamiflu completed -afebrile -ID consult -Tylenol for fever Code(s): J10.1 - FLU DUE TO OTH IDENT INFLUENZA VIRUS W OTH RESP MANIFEST (4) SIRS (systemic inflammatory response syndrome) Code(s): R65.10 - SIRS OF NON-INFECTIOUS ORIGIN W/O ACUTE ORGAN DYSFUNCTION (5) Hodgkin lymphoma Assessment/Plan: -Hematology/onc consult on board -Continue decadron -Jakafi Code(s): C81.90 - HODGKIN LYMPHOMA, UNSPECIFIED, UNSPECIFIED SITE (6) Anticoagulant long-term use Assessment/Plan: -On Warfarin due to hx of CVA -Monitor INR trend -Warfarin 10 mg today -On heparin drip to bridge -INR goal 2-3 -daily INR's -Change warfarin schedule to 4 mg MWF and 6 mg all other days starting tomorrow Code(s): Z79.01 - ASSISTED (CURRENT) USE OF ANTICOAGULANTS (7) Anemia Assessment/Plan: -Iron, thyroid, B12,stool ob-unremarkable -2/2 to chronic disease? -PRBC x 1 yesterday -trend cbc -Hematology on board Code(s): D64.9 - ANEMIA, UNSPECIFIED Assessment/Plan see problem list
--- NOTE | 2018-09-09 10:40 | PN ---
Progress Note, [employer] - Note Progress Note: Selected Entries 09/08/18 09/09/18 23:07 07:00 Supper 25% Temperature 97.2 F L Laboratory Tests 09/09/18 07:00 WBC 3.8 L Pt accepted less than 25% today for breakfast. No overt difficulty with Po tolerance. Pt has refused PEG feedings. f/u by HALIMA
[2018-09-09] MEDS: LOPERAMIDE HCL 1 MG/5 ML UNIT DOSE CUP PEG SCH (10:49)
[2018-09-09] MEDS: NAPH,MB-DB/K PH,MBDB POWDER PACKET PO SCH ×2 (10:49→21:43)
[2018-09-09] MEDS: RANITIDINE HCL 150 MG/10 ML UNIT-DOSE PEG SCH ×2 (10:49→21:43)
[2018-09-09] MEDS: levETIRAcetam 500 MG/5 ML ORAL SOLUTION (UNIT-DOSE CUPS) GT SCH ×2 (10:50→21:43)
[2018-09-09] MEDS: DEXAMETHASONE LIQUID 0.5 MG/5 ML 240 ML BULK BOTTLE PO SCH (10:50)
--- NOTE | 2018-09-09 11:04 | PN ---
Progress Note (short form) - Note Progress Note: PULMONARY Has taken off venti mask/ SPO2 90-91% VSS/Afebrile Gen: Awake and alert, less tachypneic Heart: RRR Lung: distant breath sounds, few scattered rhonchi Abd: soft, nontender Ext: trace edema labs/meds/notes/images/micro reviewed A/P Acute Hypoxic Respiratory Failure Pneumonia Atelectasis Influenza A Hodgkins Lymphoma Paroxymsal Atrial Fibrillation - trial NC O2 to maintain saturation 88% To 92% - completed antibiotics - inhaled bronchodilators - O2 to keep SpO2 >90% - NIPPV PRN - incentive spirometry - aspiration precautions - inhaled bronchodilators - continue anticoagulation - continuous pulse oximetry monitoring - At this point there is no Pulmonary contraindication for D/C to SNF. Dr Rich Doyle Problem List - Problems (1) Hodgkin lymphoma Code(s): C81.90 - HODGKIN LYMPHOMA, UNSPECIFIED, UNSPECIFIED SITE (2) Hypoxia Code(s): R09.02 - HYPOXEMIA (3) Influenza A Code(s): J10.1 - FLU DUE TO OTH IDENT INFLUENZA VIRUS W OTH RESP MANIFEST (4) SIRS (systemic inflammatory response syndrome) Code(s): R65.10 - SIRS OF NON-INFECTIOUS ORIGIN W/O ACUTE ORGAN DYSFUNCTION (5) Tachycardia Code(s): R00.0 - TACHYCARDIA, UNSPECIFIED
[2018-09-09] MEDS ORDERED: WARFARIN NA 10 MG TABLET (FP) PO ONE (18:00)
[2018-09-09] MEDS: HEPARIN SOD,PORK IN 0.45% NACL 25,000 UNITS/500 ML INFUS.BAG IVPB SCH (18:46)
[2018-09-09] MEDS: LIDOCAINE PATCH REMOVAL MC SCH (21:43)
[2018-09-10] MEDS: GABAPENTIN 250 MG/5 ML ORAL SOLUTION, 470 ML BOTTLE PEG SCH ×3 (06:06→22:21)
[2018-09-10] MEDS: INSULIN SLIDING SCALE (NOVOLOG) 1 VIAL SQ SCH ×4 (06:06→22:21)
[2018-09-10] MEDS ORDERED: PT OWN MED DRAWER 7, Y5N ONE (09:21)
[2018-09-10] MEDS: oxyCODONE HCL 5 MG TABLET PO PRN ×2 (09:31→17:51)
[2018-09-10] MEDS: AMINO ACIDS/PROTEIN HYDROLYS 30 ML LIQUID.PKT PO SCH ×2 (09:32→17:31)
[2018-09-10] MEDS: POTASSIUM CHLORIDE ORAL LIQUID 20 MEQ/15 ML GT SCH (09:32)
[2018-09-10] MEDS: guaiFENesin/D-METHORPHAN HB 10 ML UNIT-DOSE CUPS PO PRN ×2 (09:33→17:30)
[2018-09-10] MEDS: METOPROLOL TARTRATE 25 MG TABLET (FP) PO SCH ×2 (09:33→22:18)
[2018-09-10] MEDS: DEXAMETHASONE LIQUID 0.5 MG/5 ML 240 ML BULK BOTTLE PO SCH (09:34)
[2018-09-10] MEDS: LOPERAMIDE HCL 1 MG/5 ML UNIT DOSE CUP PEG SCH (09:34)
[2018-09-10] MEDS: RANITIDINE HCL 150 MG/10 ML UNIT-DOSE PEG SCH ×2 (09:35→22:18)
[2018-09-10] MEDS: RUXOLITINIB PHOSPHATE 5 MG GT SCH ×2 (09:35→22:21)
[2018-09-10] MEDS: levETIRAcetam 500 MG/5 ML ORAL SOLUTION (UNIT-DOSE CUPS) GT SCH ×2 (09:35→22:20)
[2018-09-10] MEDS: LIDOCAINE 5% TOPICAL PATCH TP SCH (09:35)
[2018-09-10] MEDS: NAPH,MB-DB/K PH,MBDB POWDER PACKET PO SCH ×2 (09:35→22:21)
[2018-09-10] MEDS: ACETAMINOPHEN 650 MG/20.3 ML ORAL SOLUTION (CUPS) PO PRN ×2 (09:36→17:51)
[2018-09-10 10:10] LABS: HEMATOCRIT 29.4 % (32.4-45.2); MCH 27.8 pg (25.7-33.7); MCHC 33.9 g/dl (32.0-36.0); MEAN PLT VOLUME 9.9 fl (7.5-11.1); PLATELET COUNT 252 K/MM3 (134-434); RBC 3.59 M/mm3 (3.60-5.2); RDW 22.2 % (11.6-15.6); WHITE BLOOD COUNT 3.3 K/mm3 (4.0-10.0)
[2018-09-10 11:45] LABS: INR 3.22 (0.82-1.09); PROTHROMBIN TIME (PATIENT) 35.2 SEC (10.2-13.0)
[2018-09-10] MEDS: ALBUTEROL SO4 0.083% IH SOL 2.5 MG/3 ML VIAL.NEB. NEB PRN ×3 (12:22→22:09)
--- NOTE | 2018-09-10 15:25 | PN ---
Progress Note, Physician Chief Complaint: Influenza A History of Present Illness: Previous notes and events reviewed awake and alert NAD continue to have SOB and abdominal distention - Current Medication List Current Medications: Active Medications Acetaminophen (Tylenol Oral Solution -) 650 mg PO Q6H PRN PRN Reason: FEVER Last Admin: 09/10/18 09:36 Dose: 650 mg Albuterol Sulfate (Ventolin 0.083% Nebulizer Soln -) 1 amp NEB Q6H PRN PRN Reason: SHORT OF BREATH/WHEEZING Last Admin: 09/10/18 12:22 Dose: 1 amp Amino Acids (Prosource No Carb Liquid Pkt) 30 ml PO BID@0800,1730 [facility] Last Admin: 09/10/18 09:32 Dose: 30 ml Artificial Tears (Artificial Tears) 1 drop OU Q6H PRN PRN Reason: DRY EYES Dexamethasone (Decadron Liquid -) 0.5 mg PO DAILY [facility] Last Admin: 09/10/18 09:34 Dose: 0.5 mg Gabapentin (Neurontin Oral Liquid -) 250 mg PEG TID [facility] Last Admin: 09/10/18 13:15 Dose: 250 mg Guaifenesin (Robitussin Dm -) 10 ml PO Q6H PRN PRN Reason: COUGH Last Admin: 09/10/18 09:33 Dose: 10 ml Heparin Sodium (Porcine) (Heparin -) 1,000 unit IVPUSH PRN PRN PRN Reason: Heparin Last Admin: 09/07/18 20:26 Dose: 1,000 unit Heparin Sodium (Porcine) (Heparin -) 5,000 unit IVPUSH PRN PRN PRN Reason: Heparin Insulin Aspart (Novolog Vial Sliding Scale -) 1 vial SQ ACHS [facility]; Protocol Last Admin: 09/10/18 11:27 Dose: Not Given Levetiracetam (Keppra Oral Solution -) 500 mg GT BID [facility] Last Admin: 09/10/18 09:35 Dose: 500 mg Lidocaine (Lidoderm Patch -) 1 patch TP DAILY [facility] Last Admin: 09/10/18 09:35 Dose: Not Given Loperamide HCl (Imodium Liquid -) 2 mg PEG DAILY [facility] Last Admin: 09/10/18 09:34 Dose: 2 mg Metoprolol Tartrate (Lopressor -) 25 mg PO BID [facility] Last Admin: 09/10/18 09:33 Dose: 25 mg Miscellaneous (Lidoderm Patch Removal) 1 each MC DAILY@2200 [facility] Last Admin: 09/09/18 21:43 Dose: Not Given Nitroglycerin (Nitrostat -) 0.4 mg SL Q5M PRN PRN Reason: FOR CHEST PAIN Non-Formulary Medication (Ruxolitinib Phosphate [Jakafi]) 5 mg GT BID [facility] Last Admin: 09/10/18 09:35 Dose: 5 mg Oxycodone HCl (Roxicodone -) 5 mg PO Q6H PRN PRN Reason: PAIN LEVEL 7 - 10 Last Admin: 09/10/18 09:31 Dose: 5 mg Potassium Chloride (Potassium Chloride Oral Liquid) 40 meq GT DAILY [facility] Last Admin: 09/10/18 09:32 Dose: 40 meq Potassium Phos/Sodium Phos (Phos-Nak Packet -) 1 packet PO BID [facility] Last Admin: 09/10/18 09:35 Dose: 1 packet Ranitidine HCl (Zantac Oral Solution -) 150 mg PEG BID [facility] Last Admin: 09/10/18 09:35 Dose: 150 mg Warfarin Sodium (Coumadin -) 4 mg PO MoWeFr@1800 [facility] Warfarin Sodium (Coumadin -) 6 mg PO SuTuThSa@1800 [facility] - Objective Vital Signs: Vital Signs Temperature 97.4 F L 09/10/18 10:00 Pulse Rate 87 09/10/18 10:00 Respiratory Rate 18 09/10/18 10:00 Blood Pressure 103/69 09/10/18 10:00 O2 Sat by Pulse Oximetry (%) 95 09/10/18 12:20 Constitutional: Yes: No Distress, Cachectic Eyes: Yes: Conjunctiva Clear HENT: Yes: Atraumatic Cardiovascular: Yes: Regular Rate and Rhythm Respiratory: Yes: Diminished, On Nasal O2 Gastrointestinal: Yes: Normal Bowel Sounds, Soft, Distention, Tenderness Genitourinary: Yes: Incontinence Musculoskeletal: Yes: Muscle Weakness Extremities: Yes: WNL Edema: No Neurological: Yes: Alert, Oriented Psychiatric: Yes: Alert, Oriented Labs: CBC, BMP 09/10/18 08:00 09/06/18 05:40 INR, PTT INR 3.22 (0.82-1.09) H 09/10/18 08:00 Problem List - Problems (1) Acute hypoxemic respiratory failure Assessment/Plan: -Pulmonary on board -O2 via NC -continue with BiPAP as needed -monitor O2 sat closely -bronchodilators -keep SpO2 >90% Code(s): J96.01 - ACUTE RESPIRATORY FAILURE WITH HYPOXIA (2) Anticoagulant long-term use Assessment/Plan: -continue with coumadin 6mg -current INR 3.22, heparin drip discontinued -daily INR with range 2-3 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 (3) Hodgkin lymphoma Assessment/Plan: -hematology/oncology on board -continue with Jakafi and decadron Code(s): C81.90 - HODGKIN LYMPHOMA, UNSPECIFIED, UNSPECIFIED SITE (4) Influenza A Assessment/Plan: -Influenza A positve -tamiflu completed Code(s): J10.1 - FLU DUE TO OTH IDENT INFLUENZA VIRUS W OTH RESP MANIFEST (5) SIRS (systemic inflammatory response syndrome) Assessment/Plan: -ID on board -completed course of IV ABT -currently afebrile -wbc 3.3 Code(s): R65.10 - SIRS OF NON-INFECTIOUS ORIGIN W/O ACUTE ORGAN DYSFUNCTION (6) Tachycardia Assessment/Plan: -cardiology on board Code(s): R00.0 - TACHYCARDIA, UNSPECIFIED Assessment/Plan see problem list dvt ppx
[2018-09-10] MEDS: WARFARIN NA 3 MG TABLET PO SCH (17:31)
--- NOTE | 2018-09-10 20:02 | PN ---
Progress Note (short form) - Note Progress Note: patient seen and eamined reports feeling better Last Vital Signs Temp Pulse Resp BP Pulse Ox 97.4 F L 80 12 102/70 95 09/10/18 14:47 09/10/18 14:47 09/10/18 14:47 09/10/18 14:47 09/10/18 12:20 Cor: RSR, No murmurs, No gallops Lungs: scattered wheezes Abd: Soft, Normal bowel sounds, No organomegaly Ext:No significant edema sclerodermoid skin changes labs/meds reviewed a/p 37F, SNF resident, with hx CVA, on warfarin, HL s/p allogeneic transplant in 2014, followed at [facility] (Dr. 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 on pain meds chronically off antibiotics/steroids O2 sat 95% on 3l NC
[2018-09-10] MEDS: LIDOCAINE PATCH REMOVAL MC SCH (22:21)
[2018-09-11] MEDS: guaiFENesin/D-METHORPHAN HB 10 ML UNIT-DOSE CUPS PO PRN ×2 (00:24→10:26)
[2018-09-11] MEDS: oxyCODONE HCL 5 MG TABLET PO PRN ×3 (00:25→22:29)
[2018-09-11] MEDS: ACETAMINOPHEN 650 MG/20.3 ML ORAL SOLUTION (CUPS) PO PRN ×2 (00:26→22:30)
[2018-09-11] MEDS: INSULIN SLIDING SCALE (NOVOLOG) 1 VIAL SQ SCH ×4 (06:49→22:28)
[2018-09-11] MEDS: GABAPENTIN 250 MG/5 ML ORAL SOLUTION, 470 ML BOTTLE PEG SCH ×3 (06:49→22:28)
[2018-09-11 07:59] LABS: HEMATOCRIT 30.3 % (32.4-45.2); MCH 27.2 pg (25.7-33.7); MCHC 33.1 g/dl (32.0-36.0); MEAN CELL VOLUME 82.2 fl (80-96); MEAN PLT VOLUME 9.3 fl (7.5-11.1); PLATELET COUNT 262 K/MM3 (134-434); RBC 3.69 M/mm3 (3.60-5.2); RDW 22.4 % (11.6-15.6); WHITE BLOOD COUNT 3.9 K/mm3 (4.0-10.0)
[2018-09-11 09:09] LABS: INR 2.44 (0.83-1.09); PROTHROMBIN TIME (PATIENT) 29.1 SEC (9.7-13.0)
[2018-09-11] MEDS: AMINO ACIDS/PROTEIN HYDROLYS 30 ML LIQUID.PKT PO SCH ×2 (09:23→18:09)
[2018-09-11] MEDS ORDERED: PT OWN MED DRAWER 7, Y5N ONE (09:27)
[2018-09-11] MEDS: ALBUTEROL SO4 0.083% IH SOL 2.5 MG/3 ML VIAL.NEB. NEB PRN ×2 (09:56→15:38)
[2018-09-11] MEDS: LOPERAMIDE HCL 1 MG/5 ML UNIT DOSE CUP PEG SCH (10:18)
[2018-09-11] MEDS: POTASSIUM CHLORIDE ORAL LIQUID 20 MEQ/15 ML GT SCH (10:18)
[2018-09-11] MEDS: METOPROLOL TARTRATE 25 MG TABLET (FP) PO SCH ×2 (10:18→22:27)
[2018-09-11] MEDS: DEXAMETHASONE LIQUID 0.5 MG/5 ML 240 ML BULK BOTTLE PO SCH (10:18)
[2018-09-11] MEDS: NAPH,MB-DB/K PH,MBDB POWDER PACKET PO SCH ×2 (10:18→22:27)
[2018-09-11] MEDS: LIDOCAINE 5% TOPICAL PATCH TP SCH (10:19)
[2018-09-11] MEDS: RANITIDINE HCL 150 MG/10 ML UNIT-DOSE PEG SCH ×2 (10:19→22:27)
[2018-09-11] MEDS: RUXOLITINIB PHOSPHATE 5 MG GT SCH ×2 (10:19→22:28)
[2018-09-11] MEDS: levETIRAcetam 500 MG/5 ML ORAL SOLUTION (UNIT-DOSE CUPS) GT SCH ×2 (10:19→22:28)
--- NOTE | 2018-09-11 13:04 | PN ---
Progress Note (short form) - Note Progress Note: PULMONARY Using nasal canula SPO2 90-91% VSS/Afebrile Gen: Awake and alert, less tachypneic Heart: RRR Lung: distant breath sounds, few scattered rhonchi Abd: soft, nontender Ext: trace edema labs/meds/notes/images/micro reviewed A/P Acute Hypoxic Respiratory Failure Pneumonia Atelectasis Influenza A Hodgkins Lymphoma Paroxymsal Atrial Fibrillation - completed antibiotics - inhaled bronchodilators - O2 to keep SpO2 >90% - NIPPV PRN - incentive spirometry - aspiration precautions - inhaled bronchodilators - continue anticoagulation - continuous pulse oximetry monitoring - At this point there is no Pulmonary contraindication for D/C to SNF. Dr Rich Doyle Problem List - Problems (1) Hodgkin lymphoma Code(s): C81.90 - HODGKIN LYMPHOMA, UNSPECIFIED, UNSPECIFIED SITE (2) Hypoxia Code(s): R09.02 - HYPOXEMIA (3) Influenza A Code(s): J10.1 - FLU DUE TO OTH IDENT INFLUENZA VIRUS W OTH RESP MANIFEST (4) SIRS (systemic inflammatory response syndrome) Code(s): R65.10 - SIRS OF NON-INFECTIOUS ORIGIN W/O ACUTE ORGAN DYSFUNCTION (5) Tachycardia Code(s): R00.0 - TACHYCARDIA, UNSPECIFIED
--- NOTE | 2018-09-11 18:32 | PN ---
Progress Note, Physician Chief Complaint: Influenza A History of Present Illness: Previous notes and events reviewed awake and alert NAD complain of chest tightness on ventimask - Current Medication List Current Medications: Active Medications Acetaminophen (Tylenol Oral Solution -) 650 mg PO Q6H PRN PRN Reason: FEVER Last Admin: 09/11/18 00:26 Dose: 650 mg Albuterol Sulfate (Ventolin 0.083% Nebulizer Soln -) 1 amp NEB Q6H PRN PRN Reason: SHORT OF BREATH/WHEEZING Last Admin: 09/11/18 15:38 Dose: 1 amp Amino Acids (Prosource No Carb Liquid Pkt) 30 ml PO BID@0800,1730 [facility] Last Admin: 09/11/18 09:23 Dose: Not Given Artificial Tears (Artificial Tears) 1 drop OU Q6H PRN PRN Reason: DRY EYES Dexamethasone (Decadron Liquid -) 0.5 mg PO DAILY [facility] Last Admin: 09/11/18 10:18 Dose: 0.5 mg Gabapentin (Neurontin Oral Liquid -) 250 mg PEG TID [facility] Last Admin: 09/11/18 14:35 Dose: Not Given Guaifenesin (Robitussin Dm -) 10 ml PO Q6H PRN PRN Reason: COUGH Last Admin: 09/11/18 10:26 Dose: 10 ml Insulin Aspart (Novolog Vial Sliding Scale -) 1 vial SQ [facility]; Protocol Last Admin: 09/11/18 17:13 Dose: Not Given Levetiracetam (Keppra Oral Solution -) 500 mg GT BID [facility] Last Admin: 09/11/18 10:19 Dose: 500 mg Lidocaine (Lidoderm Patch -) 1 patch TP DAILY [facility] Last Admin: 09/11/18 10:19 Dose: Not Given Loperamide HCl (Imodium Liquid -) 2 mg PEG DAILY [facility] Last Admin: 09/11/18 10:18 Dose: 2 mg Metoprolol Tartrate (Lopressor -) 25 mg PO BID [facility] Last Admin: 09/11/18 10:18 Dose: 25 mg Miscellaneous (Lidoderm Patch Removal) 1 each MC DAILY@2200 [facility] Last Admin: 09/10/18 22:21 Dose: Not Given Nitroglycerin (Nitrostat -) 0.4 mg SL Q5M PRN PRN Reason: FOR CHEST PAIN Non-Formulary Medication (Ruxolitinib Phosphate [Jakafi]) 5 mg GT BID [facility] Last Admin: 09/11/18 10:19 Dose: 5 mg Oxycodone HCl (Roxicodone -) 5 mg PO Q6H PRN PRN Reason: PAIN LEVEL 7 - 10 Last Admin: 09/11/18 10:26 Dose: 5 mg Potassium Chloride (Potassium Chloride Oral Liquid) 40 meq GT DAILY [facility] Last Admin: 09/11/18 10:18 Dose: 40 meq Potassium Phos/Sodium Phos (Phos-Nak Packet -) 1 packet PO BID [facility] Last Admin: 09/11/18 10:18 Dose: 1 packet Ranitidine HCl (Zantac Oral Solution -) 150 mg PEG BID [facility] Last Admin: 09/11/18 10:19 Dose: 150 mg Warfarin Sodium (Coumadin -) 4 mg PO MoWeFr@1800 [facility] Warfarin Sodium (Coumadin -) 6 mg PO SuTuThSa@1800 [facility] Last Admin: 09/10/18 17:31 Dose: 6 mg - Objective Vital Signs: Vital Signs Temperature 98.3 F 09/11/18 14:44 Pulse Rate 106 H 09/11/18 14:44 Respiratory Rate 18 09/11/18 14:44 Blood Pressure 121/86 09/11/18 14:44 O2 Sat by Pulse Oximetry (%) 90 L 09/11/18 11:21 Constitutional: Yes: No Distress, Calm Eyes: Yes: Conjunctiva Clear HENT: Yes: Atraumatic Cardiovascular: Yes: Tachycardia Respiratory: Yes: Diminished, On Venti-Mask Gastrointestinal: Yes: Normal Bowel Sounds, Soft, Other (PEG tube) Genitourinary: Yes: Incontinence Musculoskeletal: Yes: Muscle Weakness Neurological: Yes: Alert, Oriented Psychiatric: Yes: Alert, Oriented Labs: CBC, BMP 09/11/18 06:30 09/06/18 05:40 INR, PTT INR 2.44 (0.83-1.09) H 09/11/18 06:30 Problem List - Problems (1) Acute hypoxemic respiratory failure Assessment/Plan: -Pulmonary on board -O2 via NC or venti mask -continue with BiPAP as needed -monitor O2 sat closely -bronchodilators -keep SpO2 >90% Code(s): J96.01 - ACUTE RESPIRATORY FAILURE WITH HYPOXIA (2) Anticoagulant long-term use Assessment/Plan: -continue with coumadin 6mg -current INR 2.44 -daily INR with range 2-3 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 (3) Hodgkin lymphoma Assessment/Plan: -hematology/oncology on board -continue with Jakafi and decadron Code(s): C81.90 - HODGKIN LYMPHOMA, UNSPECIFIED, UNSPECIFIED SITE (4) Influenza A Assessment/Plan: -Influenza A positve -tamiflu completed Code(s): J10.1 - FLU DUE TO OTH IDENT INFLUENZA VIRUS W OTH RESP MANIFEST (5) SIRS (systemic inflammatory response syndrome) Assessment/Plan: -ID on board -completed course of IV ABT -currently afebrile -wbc 3.7 Code(s): R65.10 - SIRS OF NON-INFECTIOUS ORIGIN W/O ACUTE ORGAN DYSFUNCTION (6) Tachycardia Assessment/Plan: -cardiology on board -complain of chest pain, EKG ordered Code(s): R00.0 - TACHYCARDIA, UNSPECIFIED Assessment/Plan see problem list dvt ppx
[2018-09-11] MEDS: WARFARIN NA 3 MG TABLET PO SCH (18:44)
[2018-09-11] MEDS: LIDOCAINE PATCH REMOVAL MC SCH (22:28)
[2018-09-12] MEDS ORDERED: PT OWN MED DRAWER 7, Y5N ONE ×2 (06:33→18:12)
[2018-09-12] MEDS: GABAPENTIN 250 MG/5 ML ORAL SOLUTION, 470 ML BOTTLE PEG SCH ×3 (06:57→22:56)
[2018-09-12] MEDS: INSULIN SLIDING SCALE (NOVOLOG) 1 VIAL SQ SCH ×4 (06:57→22:09)
[2018-09-12] MEDS: ALBUTEROL SO4 0.083% IH SOL 2.5 MG/3 ML VIAL.NEB. NEB PRN ×3 (07:40→21:51)
[2018-09-12 08:14] LABS: HEMATOCRIT 29.6 % (32.4-45.2); HEMOGLOBIN 10.1 GM/dL (10.7-15.3); MCH 28.1 pg (25.7-33.7); MCHC 34.2 g/dl (32.0-36.0); MEAN CELL VOLUME 82.4 fl (80-96); MEAN PLT VOLUME 9.6 fl (7.5-11.1); PLATELET COUNT 258 K/MM3 (134-434); RDW 22.5 % (11.6-15.6); WHITE BLOOD COUNT 3.6 K/mm3 (4.0-10.0)
[2018-09-12 08:53] LABS: INR 2.4 (0.83-1.09); PROTHROMBIN TIME (PATIENT) 28.6 SEC (9.7-13.0)
[2018-09-12] MEDS: DEXAMETHASONE LIQUID 0.5 MG/5 ML 240 ML BULK BOTTLE PO SCH (09:23)
[2018-09-12] MEDS: LOPERAMIDE HCL 1 MG/5 ML UNIT DOSE CUP PEG SCH (09:24)
[2018-09-12] MEDS: AMINO ACIDS/PROTEIN HYDROLYS 30 ML LIQUID.PKT PO SCH ×2 (09:24→17:28)
[2018-09-12] MEDS: NAPH,MB-DB/K PH,MBDB POWDER PACKET PO SCH ×2 (09:25→22:55)
[2018-09-12] MEDS: levETIRAcetam 500 MG/5 ML ORAL SOLUTION (UNIT-DOSE CUPS) GT SCH ×2 (09:25→22:55)
[2018-09-12] MEDS: LIDOCAINE 5% TOPICAL PATCH TP SCH (09:25)
[2018-09-12] MEDS: POTASSIUM CHLORIDE ORAL LIQUID 20 MEQ/15 ML GT SCH (09:25)
[2018-09-12] MEDS: METOPROLOL TARTRATE 25 MG TABLET (FP) PO SCH ×2 (09:25→22:18)
[2018-09-12] MEDS: RUXOLITINIB PHOSPHATE 5 MG GT SCH ×2 (09:26→22:57)
[2018-09-12] MEDS: RANITIDINE HCL 150 MG/10 ML UNIT-DOSE PEG SCH ×2 (09:26→22:55)
--- NOTE | 2018-09-12 09:41 | PN ---
Progress Note, Physician - Current Medication List Current Medications: Active Medications Acetaminophen (Tylenol Oral Solution -) 650 mg PO Q6H PRN PRN Reason: FEVER Last Admin: 09/11/18 22:30 Dose: 650 mg Albuterol Sulfate (Ventolin 0.083% Nebulizer Soln -) 1 amp NEB Q6H PRN PRN Reason: SHORT OF BREATH/WHEEZING Last Admin: 09/12/18 07:40 Dose: 1 amp Amino Acids (Prosource No Carb Liquid Pkt) 30 ml PO BID@0800,1730 [facility] Last Admin: 09/12/18 09:24 Dose: Not Given Artificial Tears (Artificial Tears) 1 drop OU Q6H PRN PRN Reason: DRY EYES Dexamethasone (Decadron Liquid -) 0.5 mg PO DAILY [facility] Last Admin: 09/12/18 09:23 Dose: 0.5 mg Gabapentin (Neurontin Oral Liquid -) 250 mg PEG TID [facility] Last Admin: 09/12/18 06:57 Dose: 250 mg Guaifenesin (Robitussin Dm -) 10 ml PO Q6H PRN PRN Reason: COUGH Last Admin: 09/11/18 10:26 Dose: 10 ml Insulin Aspart (Novolog Vial Sliding Scale -) [address] [facility]; Protocol Last Admin: 09/12/18 06:57 Dose: Not Given Levetiracetam (Keppra Oral Solution -) 500 mg GT BID [facility] Last Admin: 09/12/18 09:25 Dose: 500 mg Lidocaine (Lidoderm Patch -) 1 patch TP DAILY [facility] Last Admin: 09/12/18 09:25 Dose: Not Given Loperamide HCl (Imodium Liquid -) 2 mg PEG DAILY [facility] Last Admin: 09/12/18 09:24 Dose: Not Given Metoprolol Tartrate (Lopressor -) 25 mg PO BID [facility] Last Admin: 09/12/18 09:25 Dose: 25 mg Miscellaneous (Lidoderm Patch Removal) 1 each MC DAILY@2200 [facility] Last Admin: 09/11/18 22:28 Dose: Not Given Nitroglycerin (Nitrostat -) 0.4 mg SL Q5M PRN PRN Reason: FOR CHEST PAIN Non-Formulary Medication (Ruxolitinib Phosphate [Jakafi]) 5 mg GT BID [facility] Last Admin: 09/12/18 09:26 Dose: 5 mg Oxycodone HCl (Roxicodone -) 5 mg PO Q6H PRN PRN Reason: PAIN LEVEL 7 - 10 Last Admin: 09/11/18 22:29 Dose: 5 mg Potassium Chloride (Potassium Chloride Oral Liquid) 40 meq GT DAILY [facility] Last Admin: 09/12/18 09:25 Dose: 40 meq Potassium Phos/Sodium Phos (Phos-Nak Packet -) 1 packet PO BID [facility] Last Admin: 09/12/18 09:25 Dose: 1 packet Ranitidine HCl (Zantac Oral Solution -) 150 mg PEG BID [facility] Last Admin: 09/12/18 09:26 Dose: 150 mg Warfarin Sodium (Coumadin -) 4 mg PO MoWeFr@1800 [facility] Warfarin Sodium (Coumadin -) 6 mg PO SuTuThSa@1800 [facility] Last Admin: 09/11/18 18:44 Dose: 6 mg - Objective Vital Signs: Vital Signs Temperature 98.0 F 09/11/18 21:00 Pulse Rate 98 H 09/11/18 21:00 Respiratory Rate 16 09/11/18 21:00 Blood Pressure 117/79 09/11/18 21:00 O2 Sat by Pulse Oximetry (%) 92 L 09/12/18 07:59 Cardiovascular: Yes: S1, S2 Respiratory: Yes: Diminished, On Nasal O2 Gastrointestinal: Yes: Normal Bowel Sounds, Soft, Distention. No: Tenderness Labs: CBC, BMP 09/12/18 06:35 09/06/18 05:40 INR, PTT INR 2.40 (0.83-1.09) H 09/12/18 06:35 Assessment/Plan - Problems (1) Acute hypoxemic respiratory failure Assessment/Plan: completed abx course now on venti mask monitor oxygen saturation ct chest Code(s): J96.01 - ACUTE RESPIRATORY FAILURE WITH HYPOXIA (2) Influenza A Assessment/Plan: tamiflu completed off droplet precautions Code(s): J10.1 - FLU DUE TO OTH IDENT INFLUENZA VIRUS W OTH RESP MANIFEST (3) Hypokalemia Assessment/Plan: monitor and replace Code(s): E87.6 - HYPOKALEMIA (4) Anticoagulant long-term use Assessment/Plan: hx of cva - on couamdin -monitor and adjust per inr monitor inr-- Code(s): Z79.01 - RESIDENTIAL (CURRENT) USE OF ANTICOAGULANTS (5) Hodgkin lymphoma Assessment/Plan: heme on board on jakafi and dexa Code(s): C81.90 - HODGKIN LYMPHOMA, UNSPECIFIED, UNSPECIFIED SITE (6) Hypomagnesemia Assessment/Plan: resolved Code(s): E83.42 - HYPOMAGNESEMIA (7) Abdomonal distention Assessment/Plan: CT of Abd MBS DONE RESULTS NOTED-- START ON DIET
--- NOTE | 2018-09-12 10:13 | EKG ---
Test Reason : Blood Pressure : / mmHG Vent. Rate : 096 BPM Atrial Rate : 096 BPM P-R Int : 184 ms QRS Dur : 068 ms QT Int : 362 ms P-R-T Axes : 037 050 004 degrees QTc Int : 457 ms NORMAL SINUS RHYTHM POSSIBLE LEFT ATRIAL ENLARGEMENT NONSPECIFIC T WAVE ABNORMALITY ABNORMAL ECG WHEN COMPARED WITH ECG OF 20-AUG-2018 19:24, T WAVE VARIATION Confirmed by PHUONG ESCOBAR MD ([id number]) on 09/12/2018 10:12:39 AM Referred By: Confirmed By:PHUONG ESCOBAR MD
[2018-09-12] MEDS ORDERED: oxyCODONE HCL 5 MG TABLET PEG PRN (11:05)
[2018-09-12] MEDS: guaiFENesin/D-METHORPHAN HB 10 ML UNIT-DOSE CUPS PO PRN (11:10)
--- NOTE | 2018-09-12 12:50 | PN ---
Progress Note (short form) - Note Progress Note: PULMONARY Breathing better today. Saturating well on room air. Vital Signs Period Temp Pulse Resp BP Sys/Nichols Pulse Ox Last 24 Hr 97.9 F-98.3 F 98-112 16-18 117-121/76-86 92-98 Gen: less tachypneic Heart: RRR Lung: distant breath sounds Abd: soft, nontender Ext: trace edema CBC, BMP 09/12/18 06:35 09/06/18 05:40 Active Medications Acetaminophen (Tylenol Oral Solution -) 650 mg PO Q6H PRN PRN Reason: FEVER Last Admin: 09/11/18 22:30 Dose: 650 mg Albuterol Sulfate (Ventolin 0.083% Nebulizer Soln -) 1 amp NEB Q6H PRN PRN Reason: SHORT OF BREATH/WHEEZING Last Admin: 09/12/18 07:40 Dose: 1 amp Amino Acids (Prosource No Carb Liquid Pkt) 30 ml PO BID@0800,1730 [facility] Last Admin: 09/12/18 09:24 Dose: Not Given Artificial Tears (Artificial Tears) 1 drop OU Q6H PRN PRN Reason: DRY EYES Dexamethasone (Decadron Liquid -) 0.5 mg PO DAILY [facility] Last Admin: 09/12/18 09:23 Dose: 0.5 mg Gabapentin (Neurontin Oral Liquid -) 250 mg PEG TID [facility] Last Admin: 09/12/18 06:57 Dose: 250 mg Guaifenesin (Robitussin Dm -) 10 ml PO Q6H PRN PRN Reason: COUGH Last Admin: 09/12/18 11:10 Dose: 10 ml Insulin Aspart (Novolog Vial Sliding Scale -) 1 vial SQ ACHS [facility]; Protocol Last Admin: 09/12/18 11:23 Dose: Not Given Levetiracetam (Keppra Oral Solution -) 500 mg GT BID [facility] Last Admin: 09/12/18 09:25 Dose: 500 mg Lidocaine (Lidoderm Patch -) 1 patch TP DAILY [facility] Last Admin: 09/12/18 09:25 Dose: Not Given Loperamide HCl (Imodium Liquid -) 2 mg PEG DAILY [facility] Last Admin: 09/12/18 09:24 Dose: Not Given Metoprolol Tartrate (Lopressor -) 25 mg PO BID [facility] Last Admin: 09/12/18 09:25 Dose: 25 mg Miscellaneous (Lidoderm Patch Removal) 1 each MC DAILY@2200 [facility] Last Admin: 09/11/18 22:28 Dose: Not Given Nitroglycerin (Nitrostat -) 0.4 mg SL Q5M PRN PRN Reason: FOR CHEST PAIN Non-Formulary Medication (Ruxolitinib Phosphate [Jakafi]) 5 mg GT BID [facility] Last Admin: 09/12/18 09:26 Dose: 5 mg Oxycodone HCl (Roxicodone -) 5 mg PEG Q6H PRN PRN Reason: PAIN LEVEL 7 - 10 Last Admin: 09/12/18 11:09 Dose: 5 mg Potassium Chloride (Potassium Chloride Oral Liquid) 40 meq GT DAILY [facility] Last Admin: 09/12/18 09:25 Dose: 40 meq Potassium Phos/Sodium Phos (Phos-Nak Packet -) 1 packet PO BID [facility] Last Admin: 09/12/18 09:25 Dose: 1 packet Ranitidine HCl (Zantac Oral Solution -) 150 mg PEG BID [facility] Last Admin: 09/12/18 09:26 Dose: 150 mg Warfarin Sodium (Coumadin -) 4 mg PO MoWeFr@1800 [facility] Warfarin Sodium (Coumadin -) 6 mg PO SuTuThSa@1800 [facility] Last Admin: 09/11/18 18:44 Dose: 6 mg A/P Acute Hypoxic Respiratory Failure Pneumonia Atelectasis Influenza A Hodgkins Lymphoma Paroxymsal Atrial Fibrillation - completed antibiotics - inhaled bronchodilators - O2 to keep SpO2 >90% - incentive spirometry - aspiration precautions - continue anticoagulation - pulse oximetry monitoring - d/c planning
[2018-09-12 17:13] VITALS: BMI 23.9
[2018-09-12] MEDS ORDERED: WARFARIN NA 2 MG TABLET (UD) PO SCH (18:00)
[2018-09-12] MEDS: LIDOCAINE PATCH REMOVAL MC SCH (23:39)
[2018-09-13] MEDS ORDERED: PT OWN MED DRAWER 7, Y5N ONE ×4 (05:21→16:04)
[2018-09-13 05:57] VITALS: PULSE 112
[2018-09-13] MEDS: INSULIN SLIDING SCALE (NOVOLOG) 1 VIAL SQ SCH ×2 (06:00→11:23)
[2018-09-13] MEDS: GABAPENTIN 250 MG/5 ML ORAL SOLUTION, 470 ML BOTTLE PEG SCH ×2 (06:00→15:00)
[2018-09-13] MEDS: ALBUTEROL SO4 0.083% IH SOL 2.5 MG/3 ML VIAL.NEB. NEB PRN (07:35)
[2018-09-13] MEDS: NAPH,MB-DB/K PH,MBDB POWDER PACKET PO SCH (10:03)
[2018-09-13] MEDS: RANITIDINE HCL 150 MG/10 ML UNIT-DOSE PEG SCH (10:03)
[2018-09-13] MEDS: POTASSIUM CHLORIDE ORAL LIQUID 20 MEQ/15 ML GT SCH (10:04)
[2018-09-13] MEDS: LIDOCAINE 5% TOPICAL PATCH TP SCH (10:06)
[2018-09-13] MEDS: METOPROLOL TARTRATE 25 MG TABLET (FP) PO SCH (10:06)
[2018-09-13] MEDS: levETIRAcetam 500 MG/5 ML ORAL SOLUTION (UNIT-DOSE CUPS) GT SCH (10:06)
[2018-09-13] MEDS: LOPERAMIDE HCL 1 MG/5 ML UNIT DOSE CUP PEG SCH (10:07)
[2018-09-13] MEDS: RUXOLITINIB PHOSPHATE 5 MG GT SCH (10:08)
[2018-09-13] MEDS: AMINO ACIDS/PROTEIN HYDROLYS 30 ML LIQUID.PKT PO SCH (10:09)
[2018-09-13] MEDS: DEXAMETHASONE LIQUID 0.5 MG/5 ML 240 ML BULK BOTTLE PO SCH (10:29)
--- NOTE | 2018-09-13 11:17 | PN ---
Progress Note, Physician Chief Complaint: Influenza A+ SIRS hypoxia History of Present Illness: Finished Tamiflu and IV abx afebrile Feeling better INR therapeutic tolerating soft diet - Current Medication List Current Medications: Active Medications Acetaminophen (Tylenol Oral Solution -) 650 mg PO Q6H PRN PRN Reason: FEVER Last Admin: 09/11/18 22:30 Dose: 650 mg Albuterol Sulfate (Ventolin 0.083% Nebulizer Soln -) 1 amp NEB Q6H PRN PRN Reason: SHORT OF BREATH/WHEEZING Last Admin: 09/13/18 07:35 Dose: 1 amp Amino Acids (Prosource No Carb Liquid Pkt) 30 ml PO BID@0800,1730 [facility] Last Admin: 09/13/18 10:09 Dose: Not Given Artificial Tears (Artificial Tears) 1 drop OU Q6H PRN PRN Reason: DRY EYES Dexamethasone (Decadron Liquid -) 0.5 mg PO DAILY [facility] Last Admin: 09/13/18 10:29 Dose: 0.5 mg Gabapentin (Neurontin Oral Liquid -) 250 mg PEG TID [facility] Last Admin: 09/13/18 06:00 Dose: 250 mg Guaifenesin (Robitussin Dm -) 10 ml PO Q6H PRN PRN Reason: COUGH Last Admin: 09/12/18 11:10 Dose: 10 ml Insulin Aspart (Novolog Vial Sliding Scale -) 1 vial SQ [facility]; Protocol Last Admin: 09/13/18 06:00 Dose: Not Given Levetiracetam (Keppra Oral Solution -) 500 mg GT BID [facility] Last Admin: 09/13/18 10:06 Dose: 500 mg Lidocaine (Lidoderm Patch -) 1 patch TP DAILY [facility] Last Admin: 09/13/18 10:06 Dose: Not Given Loperamide HCl (Imodium Liquid -) 2 mg PEG DAILY [facility] Last Admin: 09/13/18 10:07 Dose: Not Given Metoprolol Tartrate (Lopressor -) 25 mg PO BID [facility] Last Admin: 09/13/18 10:06 Dose: Not Given Miscellaneous (Lidoderm Patch Removal) 1 each MC DAILY@2200 [facility] Last Admin: 09/12/18 23:39 Dose: Not Given Nitroglycerin (Nitrostat -) 0.4 mg SL Q5M PRN PRN Reason: FOR CHEST PAIN Non-Formulary Medication (Ruxolitinib Phosphate [Jakafi]) 5 mg GT BID [facility] Last Admin: 09/13/18 10:08 Dose: 5 mg Oxycodone HCl (Roxicodone -) 5 mg PEG Q6H PRN PRN Reason: PAIN LEVEL 7 - 10 Last Admin: 09/12/18 11:09 Dose: 5 mg Potassium Chloride (Potassium Chloride Oral Liquid) 40 meq GT DAILY [facility] Last Admin: 09/13/18 10:04 Dose: 40 meq Potassium Phos/Sodium Phos (Phos-Nak Packet -) 1 packet PO BID [facility] Last Admin: 09/13/18 10:03 Dose: 1 packet Ranitidine HCl (Zantac Oral Solution -) 150 mg PEG BID [facility] Last Admin: 09/13/18 10:03 Dose: 150 mg Warfarin Sodium (Coumadin -) 4 mg PO MoWeFr@1800 [facility] Last Admin: 09/12/18 17:35 Dose: 4 mg Warfarin Sodium (Coumadin -) 6 mg PO SuTuThSa@1800 [facility] Last Admin: 09/11/18 18:44 Dose: 6 mg - Objective Vital Signs: Vital Signs Temperature 98.2 F 09/13/18 05:55 Pulse Rate 112 H 09/13/18 05:55 Respiratory Rate 18 09/13/18 05:55 Blood Pressure 110/74 09/13/18 05:55 O2 Sat by Pulse Oximetry (%) 92 L 09/13/18 08:26 Constitutional: Yes: Well Nourished, No Distress, Calm Cardiovascular: Yes: Regular Rate and Rhythm Respiratory: Yes: On Nasal O2, SOB on Exertion Gastrointestinal: Yes: Normal Bowel Sounds, Soft Genitourinary: Yes: WNL Musculoskeletal: Yes: Muscle Weakness Extremities: Yes: WNL Edema: No Peripheral Pulses WNL: Yes Neurological: Yes: Alert, Oriented Psychiatric: Yes: Alert, Oriented Labs: CBC, BMP 09/12/18 06:35 09/06/18 05:40 INR, PTT INR 2.40 (0.83-1.09) H 09/12/18 06:35 Problem List - Problems (1) Hypoxia Assessment/Plan: -improved -On Nasal O2 4lpm, maintaining SpO2> 90% -Bipap PRN -Pulmonary consult -bronchodilators -Decadron Code(s): R09.02 - HYPOXEMIA (2) Tachycardia Assessment/Plan: -resolved Code(s): R00.0 - TACHYCARDIA, UNSPECIFIED (3) Influenza A Assessment/Plan: -Tamiflu completed -afebrile -ID consult -Tylenol for fever Code(s): J10.1 - FLU DUE TO OTH IDENT INFLUENZA VIRUS W OTH RESP MANIFEST (4) SIRS (systemic inflammatory response syndrome) Code(s): R65.10 - SIRS OF NON-INFECTIOUS ORIGIN W/O ACUTE ORGAN DYSFUNCTION (5) Hodgkin lymphoma Assessment/Plan: -Hematology/onc consult on board -Continue decadron -Jakafi Code(s): C81.90 - HODGKIN LYMPHOMA, UNSPECIFIED, UNSPECIFIED SITE (6) Anticoagulant long-term use Assessment/Plan: -On Warfarin due to hx of CVA -Monitor INR trend -Maintain Warfarin 4 mg MWF and 6 mg all other days -INR goal 2-3 -check weekly INR Code(s): Z79.01 - CARE HOME (CURRENT) USE OF ANTICOAGULANTS (7) Anemia Assessment/Plan: -Iron, thyroid, B12,stool ob-unremarkable -2/2 to chronic disease? -Hematology on board Code(s): D64.9 - ANEMIA, UNSPECIFIED Assessment/Plan see problem list
--- NOTE | 2018-09-13 11:38 | PN ---
Progress Note (short form) - Note Progress Note: PULMONARY Breathing continues to improve. Saturating well on room air. Vital Signs Period Temp Pulse Resp BP Sys/Nichols Pulse Ox Last 24 Hr 98 F-98.2 F 112-115 18-20 109-110/74-76 92-98 Gen: less tachypneic Heart: RRR Lung: distant breath sounds Abd: soft, nontender Ext: trace edema CBC, BMP 09/12/18 06:35 09/06/18 05:40 Active Medications Acetaminophen (Tylenol Oral Solution -) 650 mg PO Q6H PRN PRN Reason: FEVER Last Admin: 09/11/18 22:30 Dose: 650 mg Albuterol Sulfate (Ventolin 0.083% Nebulizer Soln -) 1 amp NEB Q6H PRN PRN Reason: SHORT OF BREATH/WHEEZING Last Admin: 09/13/18 07:35 Dose: 1 amp Amino Acids (Prosource No Carb Liquid Pkt) 30 ml PO BID@0800,1730 [facility] Last Admin: 09/13/18 10:09 Dose: Not Given Artificial Tears (Artificial Tears) 1 drop OU Q6H PRN PRN Reason: DRY EYES Dexamethasone (Decadron Liquid -) 0.5 mg PO DAILY [facility] Last Admin: 09/13/18 10:29 Dose: 0.5 mg Gabapentin (Neurontin Oral Liquid -) 250 mg PEG TID [facility] Last Admin: 09/13/18 06:00 Dose: 250 mg Guaifenesin (Robitussin Dm -) 10 ml PO Q6H PRN PRN Reason: COUGH Last Admin: 09/12/18 11:10 Dose: 10 ml Insulin Aspart (Novolog Vial Sliding Scale -) 1 vial SQ ACHS [facility]; Protocol Last Admin: 09/13/18 11:23 Dose: Not Given Levetiracetam (Keppra Oral Solution -) 500 mg GT BID [facility] Last Admin: 09/13/18 10:06 Dose: 500 mg Lidocaine (Lidoderm Patch -) 1 patch TP DAILY [facility] Last Admin: 09/13/18 10:06 Dose: Not Given Loperamide HCl (Imodium Liquid -) 2 mg PEG DAILY [facility] Last Admin: 09/13/18 10:07 Dose: Not Given Metoprolol Tartrate (Lopressor -) 25 mg PO BID [facility] Last Admin: 09/13/18 10:06 Dose: Not Given Miscellaneous (Lidoderm Patch Removal) 1 each MC DAILY@2200 [facility] Last Admin: 09/12/18 23:39 Dose: Not Given Nitroglycerin (Nitrostat -) 0.4 mg SL Q5M PRN PRN Reason: FOR CHEST PAIN Non-Formulary Medication (Ruxolitinib Phosphate [Jakafi]) 5 mg GT BID [facility] Last Admin: 09/13/18 10:08 Dose: 5 mg Oxycodone HCl (Roxicodone -) 5 mg PEG Q6H PRN PRN Reason: PAIN LEVEL 7 - 10 Last Admin: 09/12/18 11:09 Dose: 5 mg Potassium Chloride (Potassium Chloride Oral Liquid) 40 meq GT DAILY [facility] Last Admin: 09/13/18 10:04 Dose: 40 meq Potassium Phos/Sodium Phos (Phos-Nak Packet -) 1 packet PO BID [facility] Last Admin: 09/13/18 10:03 Dose: 1 packet Ranitidine HCl (Zantac Oral Solution -) 150 mg PEG BID [facility] Last Admin: 09/13/18 10:03 Dose: 150 mg Warfarin Sodium (Coumadin -) 4 mg PO MoWeFr@1800 [facility] Last Admin: 09/12/18 17:35 Dose: 4 mg Warfarin Sodium (Coumadin -) 6 mg PO SuTuThSa@1800 [facility] Last Admin: 09/11/18 18:44 Dose: 6 mg A/P Acute Hypoxic Respiratory Failure improving Pneumonia Atelectasis Influenza A Hodgkins Lymphoma Paroxymsal Atrial Fibrillation - completed antibiotics - inhaled bronchodilators - O2 to keep SpO2 >90% - incentive spirometry - aspiration precautions - continue anticoagulation - pulse oximetry monitoring - d/c planning
--- NOTE | 2018-09-13 13:22 | DS ---
Physical Examination Vital Signs: Vital Signs Temperature 98.2 F 09/13/18 05:55 Pulse Rate 112 H 09/13/18 05:55 Respiratory Rate 18 09/13/18 05:55 Blood Pressure 110/74 09/13/18 05:55 O2 Sat by Pulse Oximetry (%) 92 L 09/13/18 09:00 Findings/Remarks: The patient is a 37 year old female, [facility] resident, with a significant PMH of hodgkins lymphoma, BMT, CVA (on coumadin), who presents to the emergency department with 3 days of worsening SOB. Pt states she has felt sick with fevers and poor appetite for 3 days as well. States she has been compliant with her medications. Constitutional: Yes: Well Nourished, No Distress, Calm Cardiovascular: Yes: Regular Rate and Rhythm Respiratory: Yes: On Nasal O2 Gastrointestinal: Yes: Normal Bowel Sounds Musculoskeletal: Yes: Muscle Weakness Edema: No Peripheral Pulses WNL: Yes Neurological: Yes: Alert, Oriented Psychiatric: Yes: Alert, Oriented Labs: CBC, BMP 09/12/18 06:35 09/06/18 05:40 Discharge Summary Reason For Visit: INFLUENZA DUE TO INFLUENZA VIRUS,TYPE A, HUMAN Current Active Problems Acute hypoxemic respiratory failure (Acute) Anemia (Acute) Anticoagulant long-term use (Acute) Hodgkin lymphoma (Acute) Hypokalemia (Acute) Hypomagnesemia (Acute) Hypophosphatemia (Acute) Hypoxia (Acute) Influenza A (Acute) SIRS (systemic inflammatory response syndrome) (Acute) Tachycardia (Acute) Hospital Course: Laboratory Last Values WBC 3.6 K/mm3 (4.0-10.0) L 09/12/18 06:35 RBC 3.60 M/mm3 (3.60-5.2) 09/12/18 06:35 Hgb 10.1 GM/dL (10.7-15.3) L 09/12/18 06:35 Hct 29.6 % (32.4-45.2) L 09/12/18 06:35 MCV 82.4 fl (80-96) 09/12/18 06:35 MCH 28.1 pg (25.7-33.7) 09/12/18 06:35 MCHC 34.2 g/dl (32.0-36.0) 09/12/18 06:35 RDW 22.5 % (11.6-15.6) H 09/12/18 06:35 Plt Count 258 K/MM3 (134-434) 09/12/18 06:35 MPV 9.6 fl (7.5-11.1) 09/12/18 06:35 Absolute Neuts (auto) 3.5 K/mm3 (1.5-8.0) 09/08/18 22:00 Neutrophils % (Manual) 98.0 % (42.8-82.8) H 08/25/18 05:30 Band Neutrophils % 0.0 % 08/25/18 05:30 Neutrophils % 69.4 % (42.8-82.8) 09/08/18 22:00 Lymphocytes % (Manual) 1.0 % (8-40) L 08/25/18 05:30 Lymphocytes % 15.2 % (8-40) 09/08/18 22:00 Monocytes % (Manual) 1 % (3.8-10.2) L D 08/25/18 05:30 Eosinophils % (Manual) 0.0 % (0-4.5) 08/25/18 05:30 Monocytes % 11.5 % (3.8-10.2) H 09/08/18 22:00 Basophils % (Manual) 0.0 % (0-2.0) 08/25/18 05:30 Eosinophils % 2.3 % (0-4.5) 09/08/18 22:00 Myelocytes % (Man) 0 % (0-2) 08/25/18 05:30 Basophils % 1.6 % (0-2.0) 09/08/18 22:00 Promyelocytes % (Man) 0 % (0-2) 08/25/18 05:30 Blast Cells % (Manual) 0 % (0-0) 08/25/18 05:30 Nucleated RBC % 0 % (0-0) 09/08/18 22:00 Metamyelocytes 0 % (0-2) 08/25/18 05:30 Hypochromia 2+ 09/08/18 22:00 Platelet Estimate Adequate 09/08/18 22:00 Platelet Comment No clumping noted 09/08/18 22:00 Polychromasia 2+ 08/27/18 05:15 Poikilocytosis 1+ 09/08/18 22:00 Anisocytosis 2+ 09/08/18 22:00 Microcytosis 1+ 09/03/18 05:50 Macrocytosis 2+ 09/08/18 22:00 Spherocytes 1+ 08/27/18 05:15 Target Cells 1+ 09/03/18 05:50 Tear Drop Cells 1+ 09/03/18 05:50 Ovalocytes 1+ 09/03/18 05:50 [place] Cells 1+ 09/03/18 05:50 Acanthocytes (Spur) 1+ 09/03/18 05:50 Fragmented RBCs 1+ 08/27/18 05:15 Schistocytes 1+ 08/25/18 05:30 ESR 77 mm/hr (0-20) H 08/22/18 05:30 Retic Count 1.38 % (0.5-1.5) 08/24/18 05:30 Haptoglobin 520 mg/dL (34-200) H 08/24/18 05:30 PT with INR 28.60 SEC (9.7-13.0) H 09/12/18 06:35 INR 2.40 (0.83-1.09) H 09/12/18 06:35 PTT (Actin FS) 54.7 SECONDS (25.2-36.5) H 09/12/18 07:30 Anticoagulation Therapy No Result Required. 08/20/18 18:00 Puncture Site Right radial 08/20/18 18:00 ABG pH 7.45 (7.35-7.45) 08/20/18 18:00 ABG pCO2 at Pt Temp 40.9 mmHg (35-45) 08/20/18 18:00 ABG pO2 at Pt Temp 57.6 mmHg (80-100) L D 08/20/18 18:00 ABG HCO3 27.9 meq/L (22-26) H 08/20/18 18:00 ABG O2 Sat (Measured) 90.5 % (90-98.9) 08/20/18 18:00 ABG O2 Content 14.7 % vol (15-22) L 08/20/18 18:00 ABG Base Excess 4.0 meq/l (-2-2) H 08/20/18 18:00 Regis Test Positive 08/20/18 18:00 VBG pH Cancelled 08/12/18 17:40 POC VBG pCO2 Cancelled 08/12/18 17:40 POC VBG pO2 Cancelled 08/12/18 17:40 Mixed VBG HCO3 Cancelled 08/12/18 17:40 Carboxyhemoglobin 0.8 gm% (0.5-2.0) 08/12/18 18:10 Methemoglobin 0.7 % (0.4-1.5) 08/12/18 18:10 O2 Delivery Device Bipap 08/20/18 18:00 Oxygen Flow Rate 85% 08/20/18 18:00 Vent Mode S/t 08/20/18 18:00 Vent Rate 15 08/20/18 18:00 Mechanical Rate No Result Required. 08/20/18 18:00 PEEP 0.0 cmH2O 08/20/18 18:00 Pressure Support Vent Ipap 10/epap 5 08/20/18 18:00 Sodium 144 mmol/L (136-145) 09/06/18 05:40 Potassium 3.7 mmol/L (3.5-5.1) 09/06/18 05:40 Chloride 108 mmol/L (98-107) H 09/06/18 05:40 Carbon Dioxide 28 mmol/L (21-32) 09/06/18 05:40 Anion Gap 8 MMOL/L (8-16) 09/06/18 05:40 BUN 24 mg/dL (7-18) H 09/06/18 05:40 Creatinine 0.2 mg/dL (0.55-1.3) L 09/06/18 05:40 Creat Clearance w eGFR 393.40 (>60) 09/06/18 05:40 POC Glucometer 91 UNITS (80-120) 09/13/18 11:21 Random Glucose 91 mg/dL (74-106) 09/06/18 05:40 Hemoglobin A1c % 5.6 % (4.2-6.3) 09/04/18 06:10 Lactic Acid 1.2 mmol/L (0.4-2.0) 08/12/18 17:40 Calcium 8.3 mg/dL (8.5-10.1) L 09/06/18 05:40 Phosphorus 3.8 mg/dL (2.5-4.9) 09/03/18 05:50 Magnesium 1.7 mg/dL (1.8-2.4) L 09/03/18 05:50 Iron 70 ug/dL (27-159) 08/24/18 05:30 TIBC 282 ug/dL (250-450) 08/24/18 05:30 Iron Saturation 25 % (15-55) 08/24/18 05:30 Total Bilirubin 0.3 mg/dL (0.2-1) 09/06/18 05:40 AST 15 U/L (15-37) 09/06/18 05:40 ALT 18 U/L (13-61) 09/06/18 05:40 Alkaline Phosphatase 204 U/L (45-117) H 09/06/18 05:40 Creatine Kinase 27 U/L (26-192) 08/17/18 22:46 Troponin I < 0.02 ng/ml (0.00-0.05) 08/17/18 22:46 C-Reactive Protein 17.8 MG/DL (0.00-0.3) H 08/22/18 05:30 B-Natriuretic Peptide 570.0 pg/ml (5-125) H 08/12/18 19:41 Total Protein 6.1 g/dl (6.4-8.2) L 09/06/18 05:40 Albumin 3.0 g/dl (3.4-5.0) L 09/06/18 05:40 Vitamin B12 1220 pg/ml (193-986) H 08/24/18 05:30 Serum Folate 8 ng/mL (3.1-17.5) 08/24/18 05:30 TSH 0.44 uIU/ml (0.358-3.74) 08/24/18 05:30 Free T4 1.02 ng/dl (0.76-1.46) 08/24/18 05:30 Serum , Qual Negative 08/12/18 18:46 Urine Color Ltyellow 08/12/18 22:00 Urine Appearance Clear 08/12/18 22:00 Urine pH 5.0 (5.0-8.0) 08/12/18 22:00 Ur Specific [place] 1.015 (1.010-1.035) 08/12/18 22:00 Urine Protein 1+ (NEGATIVE) H 08/12/18 22:00 Urine Glucose (UA) Negative (NEGATIVE) 08/12/18 22:00 Urine Ketones 1+ (NEGATIVE) H 08/12/18 22:00 Urine Blood 1+ (NEGATIVE) H 08/12/18 22:00 Urine Nitrite Negative (NEGATIVE) 08/12/18 22:00 Urine Bilirubin Negative (<2.0 mg/dL) 08/12/18 22:00 Urine Urobilinogen Negative mg/dL (0.2-1.0) 08/12/18 22:00 Ur Leukocyte Esterase Negative (NEGATIVE) 08/12/18 22:00 Urine WBC (Auto) 3 /hpf (3-5) 08/12/18 22:00 Urine RBC (Auto) None /hpf (0-3) 08/12/18 22:00 Ur Epithelial Cells Rare /HPF (FEW) 08/12/18 22:00 Urine Mucus Rare 08/12/18 22:00 Stool Occult Blood Negative (NEGATIVE) 08/24/18 18:20 IgG 371 08/24/18 05:30 IgA 41 08/24/18 05:30 IgM 57 08/24/18 05:30 Serum JENNY Interpret (.) 08/24/18 05:30 IEP IgG 371 mg/dL (700-1600) L 08/24/18 05:30 IEP IgA 41 mg/dL (87-352) L 08/24/18 05:30 IEP IgM 57 mg/dL (26-217) 08/24/18 05:30 GISELLE Screen Negative (.) 08/22/18 12:30 c-ANCA <1:20 titer (Neg:<1:20) 08/22/18 12:30 Proteinase 3 (PR3) <3.5 U/mL (0.0-3.5) 08/22/18 12:30 p-ANCA <1:20 titer (Neg:<1:20) 08/22/18 12:30 Atypical p-ANCA <1:20 titer (Neg:<1:20) 08/22/18 12:30 Myeloperoxidase Ab <9.0 U/mL (0.0-9.0) 08/22/18 12:30 Influenza A (Rapid) Positive A 08/12/18 19:41 Influenza B (Rapid) Negative 08/12/18 19:41 Blood Type B POSITIVE 09/08/18 12:10 Antibody Screen Negative 09/08/18 12:10 Crossmatch See Detail 09/08/18 12:10 Microbiology 08/21/18 17:40 Blood - Peripheral Venous Blood Culture - Final NO GROWTH AFTER 5 DAYS INCUBATION 08/21/18 17:40 Blood - Peripheral Venous Blood Culture - Final NO GROWTH AFTER 5 DAYS INCUBATION 08/22/18 17:00 Stool Clostridium difficile Antigen (LORIN) - Final 08/22/18 17:00 Stool Clostridium difficile Toxin Assay - Final 08/12/18 17:40 Blood - Peripheral Venous Blood Culture - Final NO GROWTH AFTER 5 DAYS INCUBATION 08/12/18 17:40 Blood - Peripheral Venous Blood Culture - Final NO GROWTH AFTER 5 DAYS INCUBATION 08/12/18 22:00 Urine - Urine Clean Catch Urine Culture - Final 08/12/18 22:00 Urine For Antigen Detection Legionella Antigen - Final Vital Signs Temp 98.2 F 09/13/18 05:55 Pulse 112 H 09/13/18 05:55 Resp 18 09/13/18 05:55 BP 110/74 09/13/18 05:55 Pulse Ox 92 L 09/13/18 09:00 Intake & Output 09/12/18 09/13/18 09/13/18 23:59 11:59 23:59 Intake Total 650 Balance 650 Intake: Oral 650 Other: Voiding Method Incontinent Incontinent # Unmeasured Voids Void 2 Bowel Movement No Body Mass Index (BMI) 23.9 Condition: Stable - Instructions Diet, Activity, Other Instructions: Completed Tamiflu and IV Zosyn bipap at night and PRN- IPAP-15, EPAP-8, FiO2-50%, RR-14 Venti mask at 50% during the day or when off bipap MONITOR INR MWF AND ADJUST COUMADIN Trial of soft foods at PR, to be followed by Speech pathology Referrals: Cj Floyd MD [Primary Care Provider] - Disposition: LONGTERM FACILITY - Home Medications Comprehensive Discharge Medication List: Ambulatory Orders Gabapentin Liquid [Neurontin Oral Liquid -] 250 mg PEG TID 08/12/18 Lidocaine 5% Top. Ointment [Xylocaine 5% Top. Ointment -] 1 applic TP BID Loperamide HCl [Imodium A-D] 2 mg PEG DAILY 08/12/18 Potassium Chloride [Klor-Con] 20 meq GT DAILY 08/12/18 Ruxolitinib Phosphate [Jakafi] 5 mg GT BID 08/12/18 levETIRAcetam [levETIRAcetam ORAL SUSPENSION] 500 mg GT BID 08/12/18 Dexamethasone Liquid - [Decadron Liquid -] 0.5 mg PO DAILY ml 08/30/18 Guaifenesin Dm [Robitussin Dm -] 10 ml PO Q6H PRN cup 08/30/18 Insulin Sliding Scale [Novolog Vial Sliding Scale -] 1 vial SQ ACHS units 08/30 Metoprolol Tartrate [Lopressor -] 25 mg PO BID tablet 08/30/18 Naph,Mb-Db/K pH,Mbdb [PHOS-NaK PACKET -] 1 packet PO BID pow 08/30/18 Polyvinyl Alcohol [Artificial Tears] 1 drop OU Q6H PRN drops 08/30/18 Albuterol 0.083% Nebulizer Stephanie [Ventolin 0.083% Nebulizer Soln -] 1 amp NEB Q6H PRN amp 09/06/18 Amino Acids/Protein Hydrolys [Prosource No Carb Liquid Pkt] 30 ml PO BID@0800, 1730 packet 09/06/18 Lidocaine 5% Patch [Lidoderm -] 1 patch TP DAILY patch 09/06/18 Nitroglycerin Sublingual [Nitrostat -] 0.4 mg SL Q5M PRN tab 09/06/18 Warfarin Na [Coumadin -] 2.5 mg PO SUMOWEFRSA tablet 09/06/18 Warfarin Na [Coumadin -] 5 mg PO TUTH tablet 09/06/18 oxyCODONE HCL [Roxicodone -] 5 mg PO Q6H PRN #120 tablet MDD 4 09/06/18
[2018-09-13 14:01] VITALS: BP 114/78; TEMP 98
== END 2018-09-13 19:30 | DRG 193 ==
LOC: JER 15:16 → JERBED 21:18 → J8W 08-13 02:42 → J4W 08-14 01:27 → J4S 08-20 14:49 → JICU 08-20 20:46 → J4S 08-25 18:10 → J6S 09-12 15:01
PROVIDERS: ADMIT Internal Medicine; ATTEND Family Medicine
PROC: 5A09557 Assistance with Respiratory Ventilation, Greater than 96 Consecutive Hours, Continuous Positive Airway Pressure (ICD-10-PCS; principal; 2018-08-17)
PROC: 0DH63UZ Insertion of Feeding Device into Stomach, Percutaneous Approach (ICD-10-PCS; 2018-08-19)
PROC: 3E0G76Z Introduction of Nutritional Substance into Upper GI, Via Natural or Artificial Opening (ICD-10-PCS; 2018-08-22)
DX: J09.X1 Influenza due to identified novel influenza A virus with pneumonia (principal); J96.01 Acute respiratory failure with hypoxia; J98.11 Atelectasis; C81.90 Hodgkin lymphoma, unspecified, unspecified site; E87.3 Alkalosis; R65.10 Systemic inflammatory response syndrome (SIRS) of non-infectious origin without acute organ dysfunction; I69.359 Hemiplegia and hemiparesis following cerebral infarction affecting unspecified side; J90 Pleural effusion, not elsewhere classified; D68.8 Other specified coagulation defects; I48.0 Paroxysmal atrial fibrillation; E83.42 Hypomagnesemia; E83.39 Other disorders of phosphorus metabolism; F32.9 Major depressive disorder, single episode, unspecified; N28.1 Cyst of kidney, acquired; Z93.1 Gastrostomy status; Z79.01 Long term (current) use of anticoagulants; D72.818 Other decreased white blood cell count; E78.5 Hyperlipidemia, unspecified; E87.6 Hypokalemia; L98.419 Non-pressure chronic ulcer of buttock with unspecified severity; D50.9 Iron deficiency anemia, unspecified; R19.7 Diarrhea, unspecified; R13.12 Dysphagia, oropharyngeal phase
CPT/HCPCS: 36415; 36430; 36600; 71045-TC-FY; 71275-TC; 74230-TC-FY; 76700-TC; 76705-TC; 80048; 80053; 81003; 81015; 82272; 82375; 82550; 82607; 82746; 82784; 82803; 82962; 83010; 83036; 83050; 83520; 83540; 83550; 83605; 83735; 83880; 84100; 84439; 84443; 84484; 84703; 85025; 85027; 85044; 85610; 85651; 85730; 86038; 86140; 86256; 86850; 86900; 86901; 86922; 87040; 87086; 87324; 87449; 87804; 87899; 92611-GN; 93005; 93010; 93306-TC; 94010; 94640; 94660; 97162-GP; 99284-25; J0131; J1644; J7030; P9038; P9058

== ENCOUNTER 2018-09-21 11:46 | Inpatient (IN) | payer OTHER ==
--- NOTE | 2018-09-21 12:20 | PDOC ---
Attending Attestation - HPI HPI: 09/21/18 14:03 The patient is a 38-year-old female from [facility], with a past medical history of Afib (on Coumadin), Non-hodgkin's lymphoma s/p stem cell transplant ( on Jakafi), CVA (04/2018) with residual LT arm, LT leg, and RT leg weakness, unknown seizure disorder (on Levetiracetam), who presents to the ED with shortness of breath that began last night. Per EMS, the patient refused all breathing treatments at the [place] and en route to the ED. She reports having 1 week of substernal chest pain. The patient denies any fever, chills, nausea, vomiting, diarrhea, constipation or abdominal pain. Denies any palpitations. Denies any urinary symptoms. Allergies: Bleomycin, nut - unspecified, peanut, rivaroxaban. Surgical History: None reported. Social History: None reported. PCP: Dr. 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 Patient also complaining of multiple episodes of loose watery stools. Bedside 2-D echocardiogram reveals no evidence of pericardial effusion or right sided heart strain. CBC reveals increased leukocyte count when compared to previous with predominance of neutrophils. CMP reveals moderately decreased potassium and magnesium. Blood cultures have been obtained. Stool culture as well as stool for C. difficile antigen and antibody has been obtained. Patient refused urine catheterization. Vancomycin and Zosyn have been administered for nosocomial pneumonia. Patient also received IV apap and normal saline. Will consult ICU. Will admit. 09/21/18 15:07 Patient also placed on BiPAP with FiO2 100%, rate of 16, 12/6 with resultant improvement in oxygen saturation to 100%. <Jeevan Quinones - Last Filed: 09/21/18 15:44>
[2018-09-21] MEDS ORDERED: SODIUM CHLORIDE 1,891 ML IV ONE (12:29)
[2018-09-21] MEDS ORDERED: SODIUM CHLORIDE 0.9% 500 ML INFUS.BAG IV ONE (12:34)
[2018-09-21] MEDS ORDERED: ACETAMINOPHEN 1000 MG/100 ML VIAL (NON FORMULARY) IVPB ONE (13:12)
[2018-09-21 13:15] LABS: VENOUS PC02 49.3 mmHg (41-51); VENOUS PH 7.38 (7.31-7.41); VENOUS PO2 40.3 mmHg (30-40)
--- NOTE | 2018-09-21 13:15 | PDOC ---
History of Present Illness - General Chief Complaint: Shortness of Breath Stated Complaint: Shortness of Breath Time Seen by Provider: 09/21/18 12:11 History Source: Patient, EMS, Fdc Records, Old Records Exam Limitations: No Limitations - History of Present Illness Initial Comments: HPI: 38 y/o female BIBEMS to [facility] ER from [facility] complaining of shortness of breath since last night. Per EMS report, the pt refused all respiratory treatments at the [place] and enroute. Declined CPAP. On arrival, the pt states she refused the treatments because they were not being administered with the right frequency. Endorses substernal chest tightness worsening over the past week. Denies radiation to arms, neck, back, or abdomen. Pt was discharged from this facility on 13 September 2018 for acute hypoxic respiratory failure believed to be secondary to pneumonia and influenza A. PCP: Dr. Nato Camacho Hand Mica Plate Layer: Dr. 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), with residual left arm, left leg, and right leg weakness - Paroxysmal A-Fib, on Coumadin - Unknown Seizure Disorder, managed with Levetiracetam - Generalized Muscle Weakness Past History - Past Medical History Allergies/Adverse Reactions: Allergies Allergy/AdvReac Type Severity Reaction Status Date / Time bleomycin Allergy Verified 09/21/18 12:09 nut - unspecified Allergy Verified 09/21/18 12:09 peanut Allergy Verified 09/21/18 12:09 rivaroxaban Allergy Verified 09/21/18 12:09 Home Medications: Ambulatory Orders Gabapentin Liquid [Neurontin Oral Liquid -] 250 mg PEG TID 08/12/18 Loperamide HCl [Imodium A-D] 2 mg PEG DAILY 08/12/18 Potassium Chloride [Klor-Con] 20 meq GT DAILY 08/12/18 Dexamethasone Liquid - [Decadron Liquid -] 0.5 mg PO DAILY ml 08/30/18 Guaifenesin Dm [Robitussin Dm -] 10 ml PO Q6H PRN cup 08/30/18 Albuterol 0.083% Nebulizer Stephanie [Ventolin 0.083% Nebulizer Soln -] 1 amp NEB Q6H PRN amp 09/06/18 Nitroglycerin Sublingual [Nitrostat -] 0.4 mg SL Q5M PRN tab 09/06/18 Warfarin Na [Coumadin -] 2.5 mg PO SUMOWEFRSA tablet 09/06/18 Warfarin Na [Coumadin -] 5 mg PO TUTH tablet 09/06/18 Levetiracetam [Spritam] 500 mg GT BID 09/21/18 Lidocaine [Aspercreme] 1 each TP DAILY 09/21/18 Metoprolol Tartrate [Lopressor -] 25 mg GT BID 09/21/18 Polyvinyl Alcohol [Artificial Tears] 15 ml OP Q8H PRN 09/21/18 Ruxolitinib Phosphate [Jakafi] 5 mg GT DAILY 09/21/18 Sodium,Potassium Phosphates [Phos-Nak Packet] 1 each GT BID 09/21/18 oxyCODONE HCL [Roxicodone -] 5 mg GT Q6H PRN MDD 4 09/21/18 Cancer: Yes (hodgkins lymphoma) Cardiac Disorders: Yes (afib) CVA: Yes (hemiplegia/hemiparesis) COPD: No HTN: Yes Psychiatric Problems: Yes (depression) - Suicide/Smoking/Psychosocial Hx Smoking History: Unknown if ever smoked Have you smoked in the past 12 months: No Hx Alcohol Use: No Drug/Substance Use Hx: No Review of Systems - Review of Systems Able to Perform ROS?: Yes Comments:: In addition to that documented in the HPI above, the additional ROS was obtained : Constitutional: Denies fevers or chills Head: Denies vision changes ENMT: Denies sore throat CV: Per HPI Resp: Per HPI GI: Endorses diarrhea. Denies vomiting. : Denies painful urination MSK: Denies recent trauma Skin: Denies new rashes Neuro: Denies new numbness or tingling or weakness Endocrine: Denies polyuria Heme: Denies bleeding or bruising *Physical Exam - Vital Signs Last Vital Signs Temp Pulse Resp BP Pulse Ox 98.4 F 134 H 20 110/76 90 L 09/21/18 12:09 09/21/18 12:09 09/21/18 12:09 09/21/18 12:09 09/21/18 12:09 - Physical Exam Comments: Constitutional: Adult female in mild respiratory distress. Appearing older than stated age. Found semi-fowlers on hospital bed. Alert and oriented x4. Speaking in few word answers with pause. Head: Normocephalic. No obvious external signs of trauma. Eyes: Sclerae white. Ears: Hearing grossly intact. Nose: No nasal discharge. Neck: Supple, trachea is midline. Cardiovascular / Chest: Tachycardic rate and regular rhythm. No murmur, rubs, clicks, or gallops. Peripheral pulses: radial pulses full. No anterior chest wall tenderness. No pretibial edema. Portacath present in left upper chest; site well appearing. Respiratory: Breathing shallow and tachypneic with retractions. Equal chest rise and fall. Clear to auscultation bilaterally. No stridor, no wheezing, no rhonchi. Gastrointestinal: abdomen is soft, non-tender, non-distended. No hepatosplenemegaly. No overlying skin lesions or obvious signs of trauma. PEG tube in LUQ; site well appearing. Neuro: Alert and oriented. Unable to move left arm or left leg at hip or elbow. Unable to move right leg at hip or knee. Bilateral plantar flexion and dorsiflexion 4/5. No facial asymmetry. Skin: Warm, dry, and intact. Psych: Affect: flat. Mood: normal. ED Treatment Course - LABORATORY CBC & Chemistry Diagram: 09/21/18 13:06 09/21/18 13:06 - ADDITIONAL ORDERS Additional order review: 09/21/18 09/21/18 09/21/18 13:06 13:06 13:06 PT with INR 19.50 H INR 1.64 H PTT (Actin FS) 40.5 H VBG pH POC VBG pCO2 POC VBG pO2 VBG HCO3 VBG O2 Sat (Sanjuanita) VBG Base Excess Sodium 141 Potassium 2.9 L* Chloride 103 Carbon Dioxide 28 Anion Gap 10 BUN 17 Creatinine 0.2 L Creat Clearance w eGFR 393.40 Random Glucose 96 Lactic Acid 1.4 Calcium 9.1 Magnesium Total Bilirubin 0.4 AST 71 H ALT 41 Alkaline Phosphatase 360 H Troponin I Total Protein 6.6 Albumin 3.3 L 09/21/18 09/21/18 12:54 07:37 PT with INR INR PTT (Actin FS) VBG pH 7.38 POC VBG pCO2 49.3 POC VBG pO2 40.3 H VBG HCO3 28.4 VBG O2 Sat (Sanjuanita) 71.9 VBG Base Excess 3.2 H Sodium Potassium Chloride Carbon Dioxide Anion Gap BUN Creatinine Creat Clearance w eGFR Random Glucose Lactic Acid Calcium Magnesium 1.7 L Total Bilirubin AST ALT Alkaline Phosphatase Troponin I 0.04 Total Protein Albumin 09/21/18 13:06 RBC 4.00 MCV 84.3 MCHC 31.3 L RDW 21.8 H MPV 7.8 D Neutrophils % 86.6 H D Lymphocytes % 4.8 L D Monocytes % 7.8 Eosinophils % 0.1 D Basophils % 0.7 - RADIOLOGY Radiology Studies Ordered: Category Date Time Status CHEST X-RAY PORTABLE* [RAD] Stat Radiology 09/21/18 12:29 Ordered - Medications Given in the ED: ED Medications Discontinued Medications Generic Name Dose Route Start Last Admin Trade Name Freq PRN Reason Stop Dose Admin Acetaminophen 1,000 mg 09/21/18 13:12 09/21/18 13:31 Ofirmev Injection - IVPB 09/21/18 13:13 1,000 mg ONCE ONE Administration Sodium Chloride 1,891 mls @ 945.5 mls/hr 09/21/18 12:29 09/21/18 13:32 Normal Saline - 30 ml/kg infuse over 2 hr (1891 ml) 09/21/18 14:28 Not Given IV ONCE ONE Vancomycin HCl 1,250 mg/ 250 mls @ 250 mls/2 hr 09/21/18 13:39 09/21/18 15:09 Dextrose IVPB 09/21/18 15:38 250 mls/2 hr ONCE ONE Administration Piperacillin Sod/Tazobactam 100 mls @ 200 mls/hr 09/21/18 13:39 09/21/18 13: 51 Sod 4.5 gm/ Dextrose IVPB 09/21/18 14:08 200 mls/hr ONCE ONE Administration Protocol Potassium Chloride 10 meq in 100 mls @ 100 mls/hr 09/21/18 14:00 09/21/18 16: 55 Potassium Chloride 10 Meq Premix Ivpb - IVPB 09/21/18 16:59 100 mls/hr Q60M LANDEN Administration Sodium Chloride 500 mls @ 500 mls/hr 09/21/18 15:09 09/21/18 15:18 Normal Saline - IV 09/21/18 16:08 500 mls/hr ASDIR STA Administration Magnesium Sulfate 2 gm 09/21/18 14:23 09/21/18 15:52 Magnesium Sulfate IVPB 09/21/18 14:24 2 gm ONCE ONE Administration Potassium Chloride 40 meq 09/21/18 13:47 09/21/18 14:06 K-Dur - PO 09/21/18 13:48 40 meq ONCE ONE Administration Sodium Chloride 500 ml 09/21/18 12:34 09/21/18 13:31 Normal Saline - IV 09/21/18 12:35 500 ml ONCE ONE Administration Medical Decision Making - Critical Care Time Total Critical Care Time (minutes): 50 Critical Care Statement: The care of this patient involved high complexity decision making to prevent further life threatening deterioration of the patient 's condition and/or to evaluate & treat vital organ system(s) failure or risk of failure. - Medical Decision Making *Reviewed vital signs, nursing notes, and prior visit documentation (if available). 38 y/o female presenting tachypneic, hypoxic, and tachycardic complaining of shortness of breath and one week of worsening substernal chest pain. Recently hospitalized with pneumonia and influenza. Bed bound secondary to CVA and generalized weakness. Pt arrived on NRB. Transitioned to BiPAP. Auscultatory exam unrevealing. Initiated ED Adult Sepsis order set. Labs were drawn from pt s Axel Cath. Declined ABG and urine catheterization. Large amount of diarrhea noted on exam. Ordered stool culture and C-diff test given pts recent prolonged hospitalization with antibiotic course. EKG revealed sinus tachycardia with ST segment depression in V4, V5, V6 with < 1mm ST elevation in aVR. Initial troponin negative. Considering PE given SOB, hypoxia, and tachycardia. Coumadin found to be subtherapeutic. Pt declined CT scan. Ordered bedside Echo to evaluate for R ventricular strain. Portable CXR revealed possible right lower lobe pneumonia per ED wet read, however no consolidation noted in radiology report. CBC revealed leukocytosis with left shift. Ordered Vanc and Zosyn for broad spectrum antibiotics for sepsis protocol. CMP revealed hypokalemia. Ordered Kdur and IV potassium. Serum magnesium level added on and found to be below normal. Ordered IV magnesium. Bedside Echo unremarkable for pericardial effusion or right ventricular strain. Low suspicion for massive PE. ST depression possibly secondary to acute demand ischemia. 13:[address] Morrow. Verbally appraised of the pts HPI, ED course, and current plan of management. Stated he would be happy to be consulted on the pt if the admitting team requested. Had no further suggestions for acute ED workup. 14:30 Telephone consultation with resident Dr. Capellan of ICU service. Verbally appraised of the pts HPI, ED course, and current plan of management. Will evaluate the pt. 14:38 In person consultation with MAURA Macias. Verbally appraised of the pts HPI, ED course, and current plan of management. Will admit pt to ICU for Dr. Bahena. No further orders requested. *DC/Admit/Observation/Transfer Diagnosis at time of Disposition: Shortness of breath, Hypoxia, Hypokalemia, Hypomagnesemia, Tachycardia Leukocytosis Qualifiers: Leukocytosis type: unspecified Qualified Code(s): D72.829 - Elevated white blood cell count, unspecified - Discharge Dispostion Condition at time of disposition: Stable Decision to Admit order: Yes - Referrals - Patient Instructions - Post Discharge Activity
[2018-09-21] MEDS ORDERED: ACETAMINOPHEN INJECTION 100 ML IVPB ONE (13:17)
[2018-09-21 13:20] LABS: BASO % 0.7 % (0-2.0); EOS % 0.1 % (0-4.5); HEMATOCRIT 33.7 % (32.4-45.2); HEMOGLOBIN 10.6 GM/dL (10.7-15.3); LYMPH % 4.8 % (8-40); MCH 26.4 pg (25.7-33.7); MCHC 31.3 g/dl (32.0-36.0); MEAN CELL VOLUME 84.3 fl (80-96); MEAN PLT VOLUME 7.8 fl (7.5-11.1); MONO % 7.8 % (3.8-10.2); NEUT % 86.6 % (42.8-82.8); PLATELET COUNT 433 K/MM3 (134-434); RDW 21.8 % (11.6-15.6); WHITE BLOOD COUNT 11.3 K/mm3 (4.0-10.0)
[2018-09-21 13:33] LABS: INR 1.64 (0.83-1.09); PROTHROMBIN TIME (PATIENT) 19.5 SEC (9.7-13.0)
[2018-09-21 13:36] LABS: ACTIVATED PTT 40.5 SECONDS (25.2-36.5)
[2018-09-21] MEDS ORDERED: VANCOMYCIN HCL 1,250 MG in DEXTROSE 5%-WATER - 250 ML IVPB ONE (13:39)
[2018-09-21] MEDS ORDERED: PIPERACILLIN/TAZOB 4.5 GM 4.5 GM in DEXTROSE 5%-WATER 100 ML IVPB ONE (13:39)
[2018-09-21] MEDS ORDERED: PIPERACILLIN/TAZOB 4.5 GM 4.5 GM/100 ML BAG IVPB ONE (13:44)
[2018-09-21 13:45] LABS: ALBUMIN 3.3 g/dl (3.4-5.0); ALK PHOS 360 U/L (45-117); ANION GAP 10 MMOL/L (8-16); BILIRUBIN,TOTAL 0.4 mg/dL (0.2-1); BLOOD UREA NITROGEN 17 mg/dL (7-18); CALCIUM 9.1 mg/dL (8.5-10.1); CHLORIDE 103 mmol/L (98-107); CO2 28 mmol/L (21-32); CREATININE 0.2 mg/dL (0.55-1.3); GLUCOSE,RANDOM 96 mg/dL (74-106); SGOT/AST 71 U/L (15-37); SGPT/ALT 41 U/L (13-61); SODIUM 141 mmol/L (136-145); TOT PROT 6.6 g/dl (6.4-8.2)
[2018-09-21 13:47] LABS: POTASSIUM 2.9 mmol/L (3.5-5.1)
[2018-09-21] MEDS ORDERED: POTASSIUM CHLORIDE TABS 20 MEQ TABLET.ER (FP) PO ONE (13:47)
[2018-09-21] MEDS ORDERED: POTASSIUM CHLORIDE ORAL LIQUID 20 MEQ/15 ML ONE (13:59)
[2018-09-21 14:04] LABS: ANISOCYTOSIS 2+; MACROCYTOSIS 0; PLATELET ESTIMATE NORMAL
[2018-09-21] MEDS ORDERED: ALBUTEROL SO4 2.5/IPRATROPIUM 0.5 INH SOL 3 ML VIAL.NEB. NEB ONE (14:07)
[2018-09-21] MEDS ORDERED: KCL 10 MEQ IVPB 10 MEQ/100 ML INFUS.BAG IVPB ONE (14:08)
[2018-09-21] MEDS: KCL 10 MEQ IVPB 10 MEQ/100 ML INFUS.BAG IVPB SCH ×3 (14:14→18:55)
[2018-09-21 14:18] LABS: MAGNESIUM 1.7 mg/dL (1.8-2.4)
[2018-09-21] MEDS ORDERED: MAGNESIUM SULF 50% (8.12 MEQ/2 ML-1 GM VIAL) IVPB ONE (14:23)
--- NOTE | 2018-09-21 15:04 | EKG ---
Test Reason : Blood Pressure : / mmHG Vent. Rate : 133 BPM Atrial Rate : 078 BPM P-R Int : 000 ms QRS Dur : 072 ms QT Int : 382 ms P-R-T Axes : 000 055 043 degrees QTc Int : 568 ms SUPRAVENTRICULAR TACHYCARDIA WITH OCCASIONAL PREMATURE VENTRICULAR COMPLEXES ABNORMAL ECG WHEN COMPARED WITH ECG OF 11-SEP-2018 19:01, PREMATURE VENTRICULAR COMPLEXES ARE NOW PRESENT NON-SPECIFIC CHANGE IN ST SEGMENT IN INFERIOR LEADS NON-SPECIFIC CHANGE IN ST SEGMENT IN LATERAL LEADS T WAVE INVERSION NO LONGER EVIDENT IN ANTERIOR LEADS T WAVE INVERSION NOW EVIDENT IN LATERAL LEADS Confirmed by ROMIE MASTERS MD ([id number]) on 09/21/2018 3:04:06 PM Referred By: Confirmed By:ROMIE MASTERS MD
[2018-09-21] MEDS ORDERED: SODIUM CHLORIDE 500 ML IV STA (15:09)
[2018-09-21] MEDS ORDERED: MAGNESIUM SULF 50% (8.12 MEQ/2 ML-1 GM VIAL) ONE (15:19)
--- NOTE | 2018-09-21 15:22 | HP ---
Admitting History and Physical - Primary Care Physician PCP: Nikki Bahena - Admission Chief Complaint: Hypoxia, Tachycardia History of Present Illness: Patient is a 38 y/o female patient with past medical history of Afib (on coumadin), Non-Hodkin's Lymphoma s/p stem cell transplant on Jakafi, CVA (2017) with residual LUE/LLE/RLE weakness, Seizure. Patient presented to ER from [facility] for SOB that was worsening over past few days. Complains of feeling chest tightness and congestion worseing over past few days. In ER patient found to be hypoxic with SpO2 80s on NRB, tachycardic with HR 130s, and tachypneic. Patient placed on Bipap and states SOB is somehwhat improving. CXR shows bibasilar changes, leukocytosis, troponin 0.04. 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 Cardiovascular: Yes: AFIB Heme/Onc: Yes: Cancer, Other Musculoskeletal: Yes: Hemiplegia - Smoking History Smoking history: Unknown if ever smoked Have you smoked in the past 12 months: No - Alcohol/Substance Use Hx Alcohol Use: No - Social History Usual Living Arrangement: Yes: Senior Care ADL: Support Services History of Recent Travel: No Home Medications - Allergies Allergies/Adverse Reactions: Allergies Allergy/AdvReac Type Severity Reaction Status Date / Time bleomycin Allergy Verified 09/21/18 12:09 nut - unspecified Allergy Verified 09/21/18 12:09 peanut Allergy Verified 09/21/18 12:09 rivaroxaban Allergy Verified 09/21/18 12:09 - Home Medications Home Medications: Ambulatory Orders Gabapentin Liquid [Neurontin Oral Liquid -] 250 mg PEG TID 08/12/18 Loperamide HCl [Imodium A-D] 2 mg PEG DAILY 08/12/18 Potassium Chloride [Klor-Con] 20 meq GT DAILY 08/12/18 Dexamethasone Liquid - [Decadron Liquid -] 0.5 mg PO DAILY ml 08/30/18 Guaifenesin Dm [Robitussin Dm -] 10 ml PO Q6H PRN cup 08/30/18 Albuterol 0.083% Nebulizer Stephanie [Ventolin 0.083% Nebulizer Soln -] 1 amp NEB Q6H PRN amp 09/06/18 Nitroglycerin Sublingual [Nitrostat -] 0.4 mg SL Q5M PRN tab 09/06/18 Warfarin Na [Coumadin -] 2.5 mg PO SUMOWEFRSA tablet 09/06/18 Warfarin Na [Coumadin -] 5 mg PO TUTH tablet 09/06/18 Levetiracetam [Spritam] 500 mg GT BID 09/21/18 Lidocaine [Aspercreme] 1 each TP DAILY 09/21/18 Metoprolol Tartrate [Lopressor -] 25 mg GT BID 09/21/18 Polyvinyl Alcohol [Artificial Tears] 15 ml OP Q8H PRN 09/21/18 Ruxolitinib Phosphate [Jakafi] 5 mg GT DAILY 09/21/18 Sodium,Potassium Phosphates [Phos-Nak Packet] 1 each GT BID 09/21/18 oxyCODONE HCL [Roxicodone -] 5 mg GT Q6H PRN MDD 4 09/21/18 Review of Systems - Review of Systems Constitutional: reports: Chills, Weakness Eyes: reports: No Symptoms HENT: reports: Other (Headache) Neck: reports: No Symptoms Cardiovascular: reports: Palpitations, Shortness of Breath Respiratory: reports: Cough, SOB Gastrointestinal: reports: Abdominal Pain, Diarrhea Genitourinary: reports: No Symptoms Breasts: reports: No Symptoms Reported Musculoskeletal: reports: Muscle Weakness Neurological: reports: No Symptoms Endocrine: reports: No Symptoms Hematology/Lymphatic: reports: No Symptoms Psychiatric: reports: No Symptoms Physical Examination Vital Signs: Vital Signs Temperature 98.4 F 09/21/18 12:09 Pulse Rate 130 H 09/21/18 15:03 Respiratory Rate 24 H 09/21/18 15:03 Blood Pressure 96/64 09/21/18 15:03 O2 Sat by Pulse Oximetry (%) 96 09/21/18 15:03 Constitutional: Yes: Calm, Mild Distress Eyes: Yes: Conjunctiva Clear HENT: Yes: Atraumatic Cardiovascular: Yes: Tachycardia Respiratory: Yes: Diminished (R base), On BiPap, Tachypnea Gastrointestinal: Yes: Normal Bowel Sounds, Soft, Tenderness (RUQ) Musculoskeletal: Yes: Muscle Weakness Extremities: Yes: WNL Edema: No Peripheral Pulses WNL: Yes Neurological: Yes: Alert, Oriented Psychiatric: Yes: Alert, Oriented Labs: CBC, BMP 09/21/18 13:06 09/21/18 13:06 Imaging - Results Chest X-ray: Report Reviewed Problem List - Problems (1) Hypokalemia Assessment/Plan: -K+ 2.9 --received KCl 40mEq PO x 1 and KCl 10mEq IVPB x 3 -monitor electrolytes daily -replete as needed Code(s): E87.6 - HYPOKALEMIA (2) Hypomagnesemia Assessment/Plan: -Mg 1.7--received Magnesium 2gIVPB x 1 dose -monitor electrolyte daily -replete as needed Code(s): E83.42 - HYPOMAGNESEMIA (3) Hypoxia Assessment/Plan: -pulm consult -continue with BiPap -bronchodilators -keep SpO2 >90% Code(s): R09.02 - HYPOXEMIA (4) Leukocytosis Assessment/Plan: -WBC 11.3 -ID consult placed -received IV vancomycin and zosyn in ER -afebrile -monitor WBC for downtrend Code(s): D72.829 - ELEVATED WHITE BLOOD CELL COUNT, UNSPECIFIED Qualifiers: Leukocytosis type: unspecified Qualified Code(s): D72.829 - Elevated white blood cell count, unspecified (5) Tachycardia Assessment/Plan: -cardiology consult -tele monitoring Code(s): R00.0 - TACHYCARDIA, UNSPECIFIED (6) Acute hypoxemic respiratory failure Assessment/Plan: -pulm on board --continue with BiPap -bronchodilators -keep SpO2 >90% Code(s): J96.01 - ACUTE RESPIRATORY FAILURE WITH HYPOXIA (7) Anemia Assessment/Plan: -Hg 10.6 -monitor Hg daily -transfuse if Hg <8.0 Code(s): D64.9 - ANEMIA, UNSPECIFIED (8) Anticoagulant long-term use Assessment/Plan: -continue with Coumdain -therapeutic goal INR 2-3 -daily INR monitoring Code(s): Z79.01 - AUDITOR MEDICAL CLAIMS (CURRENT) USE OF ANTICOAGULANTS (9) Hodgkin lymphoma Assessment/Plan: -continue Jakafi -hematology consult Code(s): C81.90 - HODGKIN LYMPHOMA, UNSPECIFIED, UNSPECIFIED SITE Assessment/Plan see problem list dvt ppx
--- NOTE | 2018-09-21 15:31 | CONSULT ---
Consultation: REQUESTING PROVIDER: Joni CONSULT REQUEST: We have been asked to medically evaluate this patient for ICU evaluation. 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 Recently discharged from here, she states that she felt she was not ready for discharge but was told that her difficulty breathing was anxiety related. She states she was discharged with bilevel ventilation, however at [facility] she believes the mask was missing a part as it causes her to feel as if she is suffocating, so she has only used it 2-3 times since her discharge. She arrived in the ED hypoxic, however saturations have improved on bilevel in the ED. She endorses nonproductive cough, abdominal pain and diarrhea , though she notes the diarrhea has been occuring for around 7 years and is not a new symptoms. She denies any fevers, n/v. REVIEW OF SYSTEMS: CONSTITUTIONAL: chills, generalized weakness Absent: fever, diaphoresis, , malaise, loss of appetite, weight change HEENT: Absent: rhinorrhea, nasal congestion, throat pain, throat swelling, difficulty swallowing, mouth swelling, ear pain, eye pain, visual changes CARDIOVASCULAR: palpitations, Absent: chest pain, syncope, irregular heart rate, lightheadedness, peripheral edema RESPIRATORY: cough, shortness of breath, dyspnea with exertion, wheezing Absent: orthopnea,, stridor, hemoptysis GASTROINTESTINAL: abdominal pain Absent: , abdominal distension, nausea, vomiting, diarrhea, constipation, melena , hematochezia GENITOURINARY: Absent: dysuria, frequency, urgency, hesitancy, hematuria, flank pain, genital pain MUSCULOSKELETAL: Absent: myalgia, arthralgia, joint swelling, back pain, neck pain SKIN: Absent: rash, itching, pallor HEMATOLOGIC/IMMUNOLOGIC: Absent: easy bleeding, easy bruising, lymphadenopathy, frequent infections ENDOCRINE: Absent: unexplained weight gain, unexplained weight loss, heat intolerance, cold intolerance NEUROLOGIC: headache, Absent: focal weakness or paresthesias, dizziness, unsteady gait, seizure, mental status changes, bladder or bowel incontinence PSYCHIATRIC: Absent: anxiety, depression, suicidal or homicidal ideation, hallucinations. PHYSICAL EXAMINATION Vital Signs - 24 hr 09/21/18 09/21/18 09/21/18 12:09 13:33 13:42 Temperature 98.4 F Pulse Rate 134 H 120 H Pulse Rate [ Apical] Respiratory 20 Rate Blood Pressure 110/76 Blood Pressure [Right Arm] O2 Sat by Pulse 90 L 100 100 Oximetry (%) 09/21/18 09/21/18 09/21/18 13:44 13:45 14:00 Temperature Pulse Rate 132 H Pulse Rate [ Apical] Respiratory Rate Blood Pressure Blood Pressure 104/67 [Right Arm] O2 Sat by Pulse 94 L 94 L Oximetry (%) 09/21/18 15:03 Temperature Pulse Rate Pulse Rate [ 130 H Apical] Respiratory 24 H Rate Blood Pressure Blood Pressure 96/64 [Right Arm] O2 Sat by Pulse 96 Oximetry (%) GEN: A&O, no acute distress HEENT: PERRL, EOMI, dry mucus membranes NECK: Supple, no lymphadenopathy HEART: Tachycardic, no murmurs noted LUNGS: Decreased breath sounds on the right base, otherwise CTA ABDOMEN: Soft, minimal tenderness in epigastric region EXTREMITIES: No peripheral edema, 2+ pulses, no calf tenderness NEURO: CN II-XII grossly in tact, decreased sensation in the distal UE with weakness of UE noted Laboratory Results - last 24 hr 09/21/18 09/21/18 09/21/18 07:37 12:54 13:06 WBC 11.3 H RBC 4.00 Hgb 10.6 L Hct 33.7 MCV 84.3 MCH 26.4 MCHC 31.3 L RDW 21.8 H Plt Count 433 D MPV 7.8 D Absolute Neuts (auto) 9.8 H Neutrophils % 86.6 H D Lymphocytes % 4.8 L D Monocytes % 7.8 Eosinophils % 0.1 D Basophils % 0.7 Nucleated RBC % 0 Hypochromia 0 Platelet Estimate Normal Polychromasia 1+ Poikilocytosis 1+ Anisocytosis 2+ Microcytosis 1+ Macrocytosis 0 Schistocytes 1+ PT with INR INR PTT (Actin FS) VBG pH 7.38 POC VBG pCO2 49.3 POC VBG pO2 40.3 H VBG HCO3 28.4 VBG O2 Sat (Sanjuanita) 71.9 VBG Base Excess 3.2 H Sodium Potassium Chloride Carbon Dioxide Anion Gap BUN Creatinine Creat Clearance w eGFR Random Glucose Lactic Acid Calcium Magnesium 1.7 L Total Bilirubin AST ALT Alkaline Phosphatase Troponin I 0.04 Total Protein Albumin 09/21/18 09/21/18 09/21/18 13:06 13:06 13:06 WBC RBC Hgb Hct MCV MCH MCHC RDW Plt Count MPV Absolute Neuts (auto) Neutrophils % Lymphocytes % Monocytes % Eosinophils % Basophils % Nucleated RBC % Hypochromia Platelet Estimate Polychromasia Poikilocytosis Anisocytosis Microcytosis Macrocytosis Schistocytes PT with INR 19.50 H INR 1.64 H PTT (Actin FS) 40.5 H VBG pH POC VBG pCO2 POC VBG pO2 VBG HCO3 VBG O2 Sat (Sanjuanita) VBG Base Excess Sodium 141 Potassium 2.9 L* Chloride 103 Carbon Dioxide 28 Anion Gap 10 BUN 17 Creatinine 0.2 L Creat Clearance w eGFR 393.40 Random Glucose 96 Lactic Acid 1.4 Calcium 9.1 Magnesium Total Bilirubin 0.4 AST 71 H ALT 41 Alkaline Phosphatase 360 H Troponin I Total Protein 6.6 Albumin 3.3 L Active Medications Generic Name Dose Route Start Last Admin Trade Name Freq PRN Reason Stop Dose Admin Vancomycin HCl 1,250 mg/ 250 mls @ 250 mls/2 hr 09/21/18 13:39 09/21/18 15:09 Dextrose IVPB 09/21/18 15:38 250 mls/2 hr ONCE ONE Administration Potassium Chloride 10 meq in 100 mls @ 100 mls/hr 09/21/18 14:00 09/21/18 14: 14 Potassium Chloride 10 Meq Premix Ivpb - IVPB 09/21/18 16:59 100 mls/hr Q60M LANDEN Administration Sodium Chloride 500 mls @ 500 mls/hr 09/21/18 15:09 09/21/18 15:18 Normal Saline - IV 09/21/18 16:08 500 mls/hr ASDIR STA Administration Insulin Aspart 1 vial 09/21/18 16:30 Novolog Vial Sliding Scale - SQ ACHS [facility] Protocol ASSESSMENT/PLAN: 38 yo female with PMH Afib (on coumadin), Non-Hodkin's Lymphoma s/p stem cell transplant on Jakafi, 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 weakness, Seizure hx, presents from [facility] with complaint of SOB, admitted to ICU for overnight monitoring of respiratory status NEURO -awake and alert -No signs of confusion -Hx Seizures Continue Keppra 500 mg BID GT CARDIOVASCULAR -Hx A-fib with tachycardia on monitor Cardiology consult appreciated Pt with Chronic sinus tachycardia, hold beta blockers as per cardiology INR subtherapeutic, continue warfarin and consider increased dose Hematology discussion from ER appreciated PULMONARY -Acute on Chronic Hypoxic Respiratory Failure Bilevel ventilation DuoNebs monitor ABG if patient will allow Maintain saturation > 90% -Possible RLL Pneumonia (Hospital Acquired), infiltrative changes compared with CXR prior to recent d/c *As below GI -Chronic diarrhea Stable with no fevers or concern for acute infection -Epigastric pain Abdominal US pending ID -Possible RLL Hospital Acquired pneumonia* Vanc/Zosyn given in ER Case discussed with ID who recommends Vanco/Cefepime/Doxy Prolonged QTc noted Consider post flu pneumonia as pt was flu positive on recent visit HEME -Subtherapeutic INR as above, titrate warfarin to INR 2-3 ENDOCRINE -DM Insulin sliding scale and BGMs for glycemic control PROPHYLAXIS -Continue warfarin, INR goal 2-3 FEN -monitor fluid status and add maintenance as necessary -monitor and replete -NPO, for now, resume tube feeds as tolerated DISPOSITION Will monitor in the ICU for now Thank you for this consultative opportunity. Visit type - Emergency Visit Emergency Visit: Yes ED Registration Date: 09/21/18 Care time: The patient presented to the Emergency Department on the above date and was hospitalized for further evaluation of their emergent condition. - New Patient This patient is new to me today: Yes Date on this admission: 09/21/18 - Critical Care Critical Care patient: Yes Total Critical Care Time (in minutes): 38 Critical Care Statement: The care of this patient involved high complexity decision making to prevent further life threatening deterioration of the patient 's condition and/or to evaluate & treat vital organ system(s) failure or risk of failure.
--- NOTE | 2018-09-21 15:35 | CON.CARD ---
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 She was transferred from nursing facility with dyspnea, chest tightness, chills and noted to be hypoxic and was placed on BiPAP with improvement in saturation. ECG showed sinus tachycardia without ST changes. Her CXR shows clear lungs with cardiomegaly. She is being treated with empiric antibiotic and fluid hydration. Echocardiogram 07/2018 EF 45-50% with mild global hypokinesis. No significant valvular disease or pulmonary HTN was noted. 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 Cardio/Vascular: Yes: AFIB Musculoskeletal: Yes: Hemiplegia - Alcohol/Substance Use Hx Alcohol Use: No - Smoking History Smoking history: Unknown if ever smoked Have you smoked in the past 12 months: No - Social History Usual Living Arrangement: [facility] ADL: Support Services History of Recent Travel: No Home Medications - Allergies Allergies/Adverse Reactions: Allergies Allergy/AdvReac Type Severity Reaction Status Date / Time bleomycin Allergy Verified 09/21/18 12:09 nut - unspecified Allergy Verified 09/21/18 12:09 peanut Allergy Verified 09/21/18 12:09 rivaroxaban Allergy Verified 09/21/18 12:09 - Home Medications Home Medications: Ambulatory Orders Gabapentin Liquid [Neurontin Oral Liquid -] 250 mg PEG TID 08/12/18 Loperamide HCl [Imodium A-D] 2 mg PEG DAILY 08/12/18 Potassium Chloride [Klor-Con] 20 meq GT DAILY 08/12/18 Dexamethasone Liquid - [Decadron Liquid -] 0.5 mg PO DAILY ml 08/30/18 Guaifenesin Dm [Robitussin Dm -] 10 ml PO Q6H PRN cup 08/30/18 Albuterol 0.083% Nebulizer Stephanie [Ventolin 0.083% Nebulizer Soln -] 1 amp NEB Q6H PRN amp 09/06/18 Nitroglycerin Sublingual [Nitrostat -] 0.4 mg SL Q5M PRN tab 09/06/18 Warfarin Na [Coumadin -] 2.5 mg PO SUMOWEFRSA tablet 09/06/18 Warfarin Na [Coumadin -] 5 mg PO TUTH tablet 09/06/18 Levetiracetam [Spritam] 500 mg GT BID 09/21/18 Lidocaine [Aspercreme] 1 each TP DAILY 09/21/18 Metoprolol Tartrate [Lopressor -] 25 mg GT BID 09/21/18 Polyvinyl Alcohol [Artificial Tears] 15 ml OP Q8H PRN 09/21/18 Ruxolitinib Phosphate [Jakafi] 5 mg GT DAILY 09/21/18 Sodium,Potassium Phosphates [Phos-Nak Packet] 1 each GT BID 09/21/18 oxyCODONE HCL [Roxicodone -] 5 mg GT Q6H PRN MDD 4 09/21/18 Review of Systems - Review of Systems Constitutional: reports: Chills, Lethargy, Weakness. denies: Fever HENT: reports: No Symptoms Neck: reports: No Symptoms Cardiovascular: reports: Chest Pain, Shortness of Breath Respiratory: reports: Cough Gastrointestinal: reports: No Symptoms Genitourinary: reports: No Symptoms Vital Signs: Vital Signs Temperature 98.4 F 09/21/18 12:09 Pulse Rate 130 H 09/21/18 15:03 Respiratory Rate 24 H 09/21/18 15:03 Blood Pressure 96/64 09/21/18 15:03 O2 Sat by Pulse Oximetry (%) 96 09/21/18 15:03 Constitutional: Yes: Cachectic, Moderate Distress Eyes: Yes: Conjunctiva Clear, EOM Intact Respiratory: Yes: Rhonchi, SOB (on BiPAP) Heart Sounds: Yes: S1 (tachycardic-regular), S2 Murmur: No: Systolic Murmur, Diastolic Murmur Edema: No - Other Data Labs, Other Data: CBC, BMP 09/21/18 13:06 09/21/18 13:06 INR, PTT INR 1.64 (0.83-1.09) H 09/21/18 13:06 Troponin, BNP 09/21/18 07:37 Troponin I 0.04 Troponin, BNP 09/21/18 07:37 Troponin I 0.[address] T changes. 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 She was transferred from nursing facility with dyspnea, chest tightness, chills and noted to be hypoxic and was placed on BiPAP with improvement in saturation. ECG showed sinus tachycardia without ST changes. Her CXR shows clear lungs with cardiomegaly. She is being treated with empiric antibiotic and fluid hydration. Echocardiogram 07/2018 EF 45-50% with mild global hypokinesis. No significant valvular disease or pulmonary HTN was noted. Possibly septic. Emperic Abx therapy and fulid hydration was started. Her respiratory status has improved on BiPAP. Continue to monitor closely for volume overload given history of mild cardiomyopathy. reactive Sinus tachycardia due to uinderlying illness. Has chronic sinus tachycardia due to deconditioning. Hold Beta blockers. Has ho paroxysmal Afib with previous CVA (CHADS-Vasc2=3)and is now in Sinus tachy. On coumadin. Dose INR for a goal of 2-3 unless invasive interventions are planned.
--- NOTE | 2018-09-21 15:52 | ECHO ---
Name: MORE LOCKHART Exam:Adult Echocardiogram Study Date: 09/21/2018 02:24 PM Age: 38 yrs Reason For Study: sob,eval for signs of pe Height: 65 in Weight: 139 lb BSA: 1.7 m2 MMode/2D Measurements & Calculations IVSd: 0.70 cm Ao root diam: 3.3 cm LVIDd: 4.0 cm LA dimension: 1.9 cm LVIDs: 2.8 cm ACS: 2.0 cm LVPWd: 0.73 cm IVSs: 0.87 cm LVPWs: 1.2 cm EDV(Teich): 69.5 ml ESV(Teich): 29.7 ml Doppler Measurements & Calculations MV E max jonathon: 48.1 cm/sec Ao V2 max: 72.4 cm/sec MV A max jonathon: 104.4 cm/sec Ao max P.1 mmHg MV E/A: 0.46 Ao V2 mean: 54.4 cm/sec Ao mean P.3 mmHg Ao V2 VTI: 11.5 cm TR max jonathon: 283.7 cm/sec Med Peak E' Jonathon: 5.7 cm/sec TR max P.2 mmHg Med E/e': 8.4 Procedure The study was technically difficult with many images being suboptimal in quality. The study was non-d iagnostic in quality. No definitive statements could be made about this echo due to extremely poor acoustic win dows. Left Ventricle The left ventricular size, thickness and function are normal. The left ventricle is not well visualiz ed. The left ventricular ejection fraction is normal. Regional wall motion abnormalities cannot be excluded d ue to limited visualization. Right Ventricle The right ventricle is not well visualized. Atria Normal left and right atrial size and function. Mitral Valve There is mild mitral valve thickening. No significant mitral valve stenosis. There is mild mitral regurgitation. Tricuspid Valve There is mild tricuspid valve thickening. There is no tricuspid stenosis. There is Trace to mild tric uspid regurgitation. Right ventricular systolic pressure is elevated at 40-50mmHg. Interpretation Summary Clinical correlation is recommended. The study was technically difficult with many images being subop timal in quality. The left ventricular size, thickness and function are normal The left ventricular ejection fraction is normal. Regional wall motion abnormalities cannot be excluded due to limited visualization. The right ventricle is not well visualized. There is mild mitral regurgitation. There is Trace to mild tricuspid regurgitation. Right ventricular systolic pressure is elevated at 40-50mmHg. The left ventricle is not well visualized. The study was non-diagnostic in quality. No definitive statements could be made about this echo due t o extremely poor acoustic windows. Clinical correlation is recommended. MD Gorge Warren 09/21/2018 03:51 PM
[2018-09-21] MEDS ORDERED: NITROGLYCERIN SUBLINGUAL 1/150 0.4 MG TAB SL PRN (16:42)
[2018-09-21] MEDS: INSULIN SLIDING SCALE (NOVOLOG) 1 VIAL SQ SCH ×2 (17:02→21:00)
--- NOTE | 2018-09-21 17:15 | PN ---
Progress Note (short form) - Note Progress Note: ID consult dictated 38 you female pmh NHL s/p stem cell times two, GVHD, prior CVA, nonambulatory, residing at the [facility] recently hospitalized 08/12 to 09/13- positive for influenza A treated with tamiflu also got a 7 day course of zosyn completed 08/19 reports not feeling well at time of discharge continued cough and chest congestion admitted with worsening SOB and chills apparently was refusing respiratory care at the [facility] per ER note in ER she had cxray that shows Right basilar infiltrate (new), cannot r/o left retrocardiac process wbc 11.3 tachycardia placed on bipap- awake and alert answering questions has left chest wall central line that she has had for several years now acute respiratory failure (hypoxia) Right basilar pneumonia recent admission recent influenza immunocompromised host prolonged qtc vancomycin/cefepime/doxycyline- urinaryantigens sputum culture blood cultures Problem List - Problems (1) Acute hypoxemic respiratory failure Code(s): J96.01 - ACUTE RESPIRATORY FAILURE WITH HYPOXIA (2) Pneumonia Code(s): J18.9 - PNEUMONIA, UNSPECIFIED ORGANISM (3) Immunocompromised patient Code(s): D84.9 - IMMUNODEFICIENCY, UNSPECIFIED
[2018-09-21] MEDS: WARFARIN NA 5 MG TABLET (UD) PO SCH (18:52)
--- NOTE | 2018-09-21 19:20 | CONS ---
DATE OF CONSULTATION: 09/21/2018 DATE OF DICTATION: 09/21/2018 INFECTIOUS DISEASE CONSULTATION HISTORY OF PRESENT ILLNESS: This is a 38-year-old woman with a past medical history of non-Hodgkin lymphoma. She is status post 2 stem cell transplants in 2013 and 2014. She is on Jakafi. 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 She has a history of CVA April of 2018 with residual left arm, left leg, and right leg weakness. She is nonambulatory. She was recently hospitalized at [facility] from August 12 until September 13. At that time she was diagnosed with influenza A. She was treated with Tamiflu, and she was given a course of piperacillin, tazobactam for 7 days that was completed on August 19. She remained in the hospital until September 13, and was discharged back to the residential. She reports after discharge that she continued to have cough. She did not feel well, but the cough was nonproductive. She denies any fevers but apparently became more dyspneic and had chills and was sent back to the emergency room. In the ER she was noted to be hypoxemic and tachycardic and tachypneic. She was placed on BiPAP. She had a chest x-ray done that revealed a right basilar infiltrate. She had an echo done in the ER that showed no pericardial effusion. She was given vancomycin and Zosyn. She notes that she has a cough but it is nonproductive. She has no nausea or vomiting. She has chronic diarrhea, which she has had for years and is unchanged. She has a chronic right sided catheter in her chest. She says she has had this for several years, and it has been changed several times due to prior infection. Currently the catheter is not bothering her. She denies abdominal pain. PAST MEDICAL HISTORY: As stated. 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 She has a history of paroxysmal atrial fibrillation. She is status post CVA in April of 2018. She has residual left upper extremity, left lower extremity and right lower extremity weakness. She has a seizure disorder. She as stated before has this catheter in her chest that she states she has had for several years. SOCIAL HISTORY: There is no history of alcohol use. She resides in the residential. She states she is not ambulatory. ALLERGIES: She is allergic to NUTS, RIVAROXABAN, and to BLEOMYCIN. MEDICATION: Her medications at the residential include gabapentin, loperamide, potassium, dexamethasone liquid 0.5 mg daily, nitroglycerin, warfarin, Keppra, metoprolol 25 b.i.d., Jakafi 5 mg daily, and oxycodone 5 mg q.6 p.r.n. REVIEW OF SYSTEMS: Notable for chills. She has chronic diarrhea. She notes the cough is nonproductive and shortness of breath. She denies any abdominal pain or chest pain at this time. PHYSICAL EXAMINATION: VITAL SIGNS: She is afebrile. Temperature is 98.4, pulse 111, blood pressure 94/62. She is saturating 97% on BiPAP. HEENT: Normocephalic. Eyes are anicteric. I cannot look in her mouth, she is wearing the BiPAP mask. NECK: Supple. She is alert. The catheter site is without any drainage. It is not tender. Her heart is tachycardic. LUNGS: Diminished breath sounds at the bases. ABDOMEN: Soft, nontender. EXTREMITIES: Without edema. She has chronic skin changes. LABORATORY: White count is 11.3, hemoglobin 10.6, platelets of 433, INR is 1.6. BUN and creatinine are 17 and 0.2, alkaline phosphatase is 360. Blood cultures have been sent and are pending. Chest x-ray, she has a right lower lobe infiltrate. On EKG she has a prolonged QTC. 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 She has a prolonged QTC on electrocardiogram. I would recommend at this time that we treat her with vancomycin. Continue her vancomycin, would switch her to cefepime and add doxycycline. Would obtain urinary antigens and sputum culture. She is being admitted to the ICU. Case was discussed with the ICU resident. Further recommendations to follow. JAKUB BURCH M.D. [id number]
[2018-09-21 19:43] VITALS: BMI 23.3
[2018-09-21] MEDS: ACETAMINOPHEN 325 MG TABLET (FP) PO PRN (20:50)
[2018-09-21] MEDS: CEFEPIME 2 GM in DEXTROSE 5%-WATER 100 ML IVPB SCH (20:50)
[2018-09-21] MEDS: levETIRAcetam 500 MG TABLET (FP) PO SCH (20:59)
[2018-09-21] MEDS: GABAPENTIN 250 MG/5 ML ORAL SOLUTION, 470 ML BOTTLE PO SCH (20:59)
[2018-09-21] MEDS: METOPROLOL TARTRATE 25 MG TABLET (FP) PO SCH (20:59)
[2018-09-21] MEDS: DOXYCYCLINE INJECTION 100 MG in DEXTROSE 5%-WATER 100 ML IVPB SCH (21:01)
[2018-09-21] MEDS: ALBUTEROL SO4 0.083% IH SOL 2.5 MG/3 ML VIAL.NEB. NEB SCH (21:40)
[2018-09-22] MEDS: CEFEPIME 2 GM in DEXTROSE 5%-WATER 100 ML IVPB SCH ×3 (02:13→17:28)
[2018-09-22] MEDS: GABAPENTIN 250 MG/5 ML ORAL SOLUTION, 470 ML BOTTLE PO SCH ×3 (06:30→22:39)
[2018-09-22 06:34] LABS: BASO % 0.2 % (0-2.0); EOS % 0.5 % (0-4.5); HEMATOCRIT 28.1 % (32.4-45.2); HEMOGLOBIN 9.2 GM/dL (10.7-15.3); LYMPH % 8.7 % (8-40); MCHC 32.6 g/dl (32.0-36.0); MEAN CELL VOLUME 82.8 fl (80-96); MEAN PLT VOLUME 7.6 fl (7.5-11.1); MONO % 9.6 % (3.8-10.2); PLATELET COUNT 420 K/MM3 (134-434); RDW 21.3 % (11.6-15.6); WHITE BLOOD COUNT 8.3 K/mm3 (4.0-10.0)
[2018-09-22 06:43] LABS: INR 1.74 (0.83-1.09); PROTHROMBIN TIME (PATIENT) 20.7 SEC (9.7-13.0)
[2018-09-22 07:18] LABS: ALBUMIN 2.7 g/dl (3.4-5.0); ANION GAP 8 MMOL/L (8-16); BILIRUBIN,TOTAL 0.5 mg/dL (0.2-1); BLOOD UREA NITROGEN 10 mg/dL (7-18); CALCIUM 8.1 mg/dL (8.5-10.1); CHLORIDE 106 mmol/L (98-107); CHOLESTEROL 161 mg/dL (50-200); CO2 26 mmol/L (21-32); GLUCOSE,RANDOM 70 mg/dL (74-106); HDL CHOLESTEROL 67 mg/dL (40-60); PHOSPHOROUS 2.3 mg/dL (2.5-4.9); POTASSIUM 3.9 mmol/L (3.5-5.1); SGOT/AST 47 U/L (15-37); SGPT/ALT 26 U/L (13-61); SODIUM 140 mmol/L (136-145); TOT PROT 5.4 g/dl (6.4-8.2); TRIGLYCERIDES 91 mg/dL (0-150)
[2018-09-22 07:56] LABS: ALK PHOS 288 U/L (45-117); CREATININE < 0.1 mg/dL (0.55-1.3)
--- NOTE | 2018-09-22 08:26 | CONSULT ---
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 She was recently admitted for respiratory failure and was discharged 1 week ago to [facility], told to use bipap, which she said suffocated her and she wasn't able to use it very well. Patient currently feels better, reports productive cough of yellow sputum. Denies chest pain SOB, nausea, vomiting, diarrhea. She states that her GVH began in 2015 which caused her skin to tighten and become discolored, inability to walk, and caused her throat to have difficulty swallowing. We are consulted to evaluate hx of hodgkin's lymphoma and GVH in the setting of acute hypoxic respiratory failure. 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 Oncology History: Private Oncologist Dr. 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 REVIEW OF SYSTEMS: CONSTITUTIONAL: generalized weakness Absent: fever, chills, diaphoresis,malaise, loss of appetite, weight change HEENT: difficulty swallowing Absent: rhinorrhea, nasal congestion, throat pain, throat swelling, mouth swelling, ear pain, eye pain, visual changes CARDIOVASCULAR: Absent: chest pain, syncope, palpitations, irregular heart rate, lightheadedness , peripheral edema RESPIRATORY: Absent: cough, shortness of breath, dyspnea with exertion, orthopnea, wheezing, stridor, hemoptysis GASTROINTESTINAL: Absent: abdominal pain, abdominal distension, nausea, vomiting, diarrhea, constipation, melena, hematochezia GENITOURINARY: Absent: dysuria, frequency, urgency, hesitancy, hematuria, flank pain, genital pain MUSCULOSKELETAL: Absent: myalgia, arthralgia, joint swelling, back pain, neck pain SKIN: Absent: rash, itching, pallor HEMATOLOGIC/IMMUNOLOGIC: Absent: easy bleeding, easy bruising, lymphadenopathy, frequent infections ENDOCRINE: Absent: unexplained weight gain, unexplained weight loss, heat intolerance, cold intolerance NEUROLOGIC: focal weakness or paresthesias Absent: headache, dizziness, unsteady gait, seizure, mental status changes, bladder or bowel incontinence PSYCHIATRIC: Absent: anxiety, depression, suicidal or homicidal ideation, hallucinations. PHYSICAL EXAMINATION Vital Signs - 24 hr 09/21/18 09/21/18 09/21/18 12:09 13:33 13:42 Temperature 98.4 F Pulse Rate 134 H 120 H Pulse Rate [ Apical] Respiratory 20 Rate Blood Pressure 110/76 Blood Pressure [Right Arm] O2 Sat by Pulse 90 L 100 100 Oximetry (%) 09/21/18 09/21/18 09/21/18 13:44 13:45 14:00 Temperature Pulse Rate 132 H Pulse Rate [ Apical] Respiratory Rate Blood Pressure Blood Pressure 104/67 [Right Arm] O2 Sat by Pulse 94 L 94 L Oximetry (%) 09/21/18 09/21/18 09/21/18 15:03 16:07 17:01 Temperature Pulse Rate 111 H Pulse Rate [ 130 H 119 H Apical] Respiratory 24 H 24 H Rate Blood Pressure Blood Pressure 96/64 94/62 [Right Arm] O2 Sat by Pulse 96 99 97 Oximetry (%) 09/21/18 09/21/18 09/21/18 18:20 18:30 19:23 Temperature 97.8 F Pulse Rate 120 H 115 H Pulse Rate [ Apical] Respiratory 29 H 29 H Rate Blood Pressure 108/71 Blood Pressure [Right Arm] O2 Sat by Pulse 97 93 L Oximetry (%) 09/21/18 09/21/18 09/22/18 20:17 21:00 00:00 Temperature Pulse Rate 110 H 94 H Pulse Rate [ Apical] Respiratory 28 H 28 H 28 H Rate Blood Pressure 91/68 105/82 Blood Pressure [Right Arm] O2 Sat by Pulse 97 Oximetry (%) 04/10/0709/22/18 09/22/18 00:05 02:00 04:00 Temperature 97.5 F L Pulse Rate 90 95 H Pulse Rate [ Apical] Respiratory 28 H 28 H Rate Blood Pressure 92/67 96/68 Blood Pressure [Right Arm] O2 Sat by Pulse 95 Oximetry (%) 09/22/18 05:00 Temperature Pulse Rate Pulse Rate [ Apical] Respiratory Rate Blood Pressure Blood Pressure [Right Arm] O2 Sat by Pulse 94 L Oximetry (%) GENERAL: A&Ox3, no acute distress EYES: PERRLA, EOMI ENT: Moist mucus membranes NECK: No lymphadenopathy palpated, thyroid palpated LUNGS: Breath sounds course, BREAST: Patient refused exam and reported she would allow me to return later to do breast exam HEART: Tachycardic, regular ABDOMEN: Soft, nontender, not distended, normoactive bowel sounds, no guarding, no rebound, no masses. No hepatomegaly or splenomegaly. EXTREMITIES: 2+ pulses, no edema, bilateral discoloration noted on arms and legs diffusely NEUROLOGICAL: Cranial nerves II-XII intact. Normal speech. LUE 4/5 motor strength, b/l lower extremities 1-2/5 motor strength, sensation intact throughout Laboratory Results - last 24 hr 09/21/18 09/21/18 09/21/18 07:37 12:54 13:06 WBC 11.3 H RBC 4.00 Hgb 10.6 L Hct 33.7 MCV 84.3 MCH 26.4 MCHC 31.3 L RDW 21.8 H Plt Count 433 D MPV 7.8 D Absolute Neuts (auto) 9.8 H Neutrophils % 86.6 H D Lymphocytes % 4.8 L D Monocytes % 7.8 Eosinophils % 0.1 D Basophils % 0.7 Nucleated RBC % 0 Hypochromia 0 Platelet Estimate Normal Polychromasia 1+ Poikilocytosis 1+ Anisocytosis 2+ Microcytosis 1+ Macrocytosis 0 Schistocytes 1+ PT with INR INR PTT (Actin FS) VBG pH 7.38 POC VBG pCO2 49.3 POC VBG pO2 40.3 H VBG HCO3 28.4 VBG O2 Sat (Sanjuanita) 71.9 VBG Base Excess 3.2 H Sodium Potassium Chloride Carbon Dioxide Anion Gap BUN Creatinine Creat Clearance w eGFR POC Glucometer Random Glucose Lactic Acid Calcium Phosphorus Magnesium 1.7 L Total Bilirubin AST ALT Alkaline Phosphatase Creatine Kinase Troponin I 0.04 Total Protein Albumin Triglycerides Cholesterol Total LDL Cholesterol HDL Cholesterol 09/21/18 09/21/18 09/21/18 13:06 13:06 13:06 WBC RBC Hgb Hct MCV MCH MCHC RDW Plt Count MPV Absolute Neuts (auto) Neutrophils % Lymphocytes % Monocytes % Eosinophils % Basophils % Nucleated RBC % Hypochromia Platelet Estimate Polychromasia Poikilocytosis Anisocytosis Microcytosis Macrocytosis Schistocytes PT with INR 19.50 H INR 1.64 H PTT (Actin FS) 40.5 H VBG pH POC VBG pCO2 POC VBG pO2 VBG HCO3 VBG O2 Sat (Sanjuanita) VBG Base Excess Sodium 141 Potassium 2.9 L* Chloride 103 Carbon Dioxide 28 Anion Gap 10 BUN 17 Creatinine 0.2 L Creat Clearance w eGFR 393.40 POC Glucometer Random Glucose 96 Lactic Acid 1.4 Calcium 9.1 Phosphorus Magnesium Total Bilirubin 0.4 AST 71 H ALT 41 Alkaline Phosphatase 360 H Creatine Kinase Troponin I Total Protein 6.6 Albumin 3.3 L Triglycerides Cholesterol Total LDL Cholesterol HDL Cholesterol 09/21/18 09/22/18 09/22/18 17:00 06:00 06:00 WBC 8.3 RBC 3.40 L Hgb 9.2 L Hct 28.1 L D MCV 82.8 MCH 27.0 MCHC 32.6 RDW 21.3 H Plt Count 420 MPV 7.6 Absolute Neuts (auto) 6.7 Neutrophils % 81.0 Lymphocytes % 8.7 D Monocytes % 9.6 Eosinophils % 0.5 D Basophils % 0.2 Nucleated RBC % 0 Hypochromia Platelet Estimate Polychromasia Poikilocytosis Anisocytosis Microcytosis Macrocytosis Schistocytes PT with INR 20.70 H INR 1.74 H PTT (Actin FS) VBG pH POC VBG pCO2 POC VBG pO2 VBG HCO3 VBG O2 Sat (Sanjuanita) VBG Base Excess Sodium Potassium Chloride Carbon Dioxide Anion Gap BUN Creatinine Creat Clearance w eGFR POC Glucometer 121 Random Glucose Lactic Acid Calcium Phosphorus Magnesium Total Bilirubin AST ALT Alkaline Phosphatase Creatine Kinase Troponin I Total Protein Albumin Triglycerides Cholesterol Total LDL Cholesterol HDL Cholesterol 09/22/18 06:00 WBC RBC Hgb Hct MCV MCH MCHC RDW Plt Count MPV Absolute Neuts (auto) Neutrophils % Lymphocytes % Monocytes % Eosinophils % Basophils % Nucleated RBC % Hypochromia Platelet Estimate Polychromasia Poikilocytosis Anisocytosis Microcytosis Macrocytosis Schistocytes PT with INR INR PTT (Actin FS) VBG pH POC VBG pCO2 POC VBG pO2 VBG HCO3 VBG O2 Sat (Sanjuanita) VBG Base Excess Sodium 140 Potassium 3.9 Chloride 106 Carbon Dioxide 26 Anion Gap 8 BUN 10 Creatinine < 0.1 L Creat Clearance w eGFR 875.53 POC Glucometer Random Glucose 70 L Lactic Acid Calcium 8.1 L Phosphorus 2.3 L Magnesium 2.0 Total Bilirubin 0.5 AST 47 H ALT 26 Alkaline Phosphatase 288 H Creatine Kinase 18 L Troponin I 0.05 Total Protein 5.4 L Albumin 2.7 L Triglycerides 91 Cholesterol 161 Total LDL Cholesterol 79 HDL Cholesterol 67 H Active Medications Generic Name Dose Route Start Last Admin Trade Name Freq PRN Reason Stop Dose Admin Acetaminophen 650 mg 09/21/18 20:28 09/21/18 20:50 Tylenol - PO 650 mg Q6H PRN Administration PAIN LEVEL 7 - 10 Albuterol Sulfate 1 amp 09/21/18 20:00 09/21/18 21:40 Ventolin 0.083% Nebulizer Soln - NEB 1 amp RQID LANDEN Administration Gabapentin 250 mg 09/21/18 22:00 09/22/18 06:30 Neurontin Oral Liquid - PO 250 mg TID LANDEN Administration Vancomycin HCl 1 gm in 200 mls @ 133.333 mls/hr 09/22/18 10:00 Vancomycin 1 Gm Premix - IVPB Q12H LANDEN Protocol Cefepime HCl 2 gm/ Dextrose 100 mls @ 200 mls/hr 09/21/18 18:00 09/22/18 02: 13 IVPB 200 mls/hr Q8H-IV LANDEN Administration Protocol Doxycycline Hyclate 100 mg/ 100 mls @ 50 mls/hr 09/21/18 22:00 09/21/18 21:01 Dextrose IVPB 50 mls/hr BID LANDEN Administration Levetiracetam 500 mg 09/21/18 22:00 09/21/18 20:59 Keppra - PO 500 mg BID LANDEN Administration Loperamide HCl 2 mg 09/22/18 10:00 Imodium - PO DAILY PRN DIARRHEA Metoprolol Tartrate 25 mg 09/21/18 22:00 09/21/18 20:59 Lopressor - PO Not Given BID LANDEN Nitroglycerin 0.4 mg 09/21/18 16:42 Nitrostat - SL Q5M PRN FOR CHEST PAIN Non-Formulary Medication 1 each 09/22/18 10:00 Patient's Own Med PO DAILY [facility] Potassium Chloride 20 meq 09/22/18 10:00 K-Dur - PO DAILY [facility] Potassium Phos/Sodium Phos 1 packet 09/22/18 10:00 Phos-Nak Packet - PO BID [facility] Warfarin Sodium 5 mg 09/21/18 18:00 09/21/18 18:52 Coumadin - PO 5 mg DAILY@1800 [facility] Administration ASSESSMENT/PLAN: 38 year old female with a past medical history of atrial fibrillation on coumadin, non-hodgkin's lymphoma s/p 2 transplants (2017), GVH presented to the hospital for shortness of breath and admitted for the treatment of acute hypoxic respiratory failure secondary to pneumonia. 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 Omer Watson's Lymphoma: will get records from previous oncologist to confirm diagnosis Subtherapeutic INR: INR 1.74, although improving -continue 5mg coumadin and observe INR in the AM -may increase coumadin tomorrow if still subtherapeutic Anemia: likely chronic with normal MCV, possible she has sickle cell trait; patient reports having sickle cell trait and her mother has it. 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 Thank you for this consultative opportunity. Liam Castellano, PGY2 Will Discuss with Dr. Stewart Visit type - Emergency Visit Emergency Visit: No - New Patient This patient is new to me today: Yes Date on this admission: 09/23/18 - Critical Care Critical Care patient: Yes Total Critical Care Time (in minutes): 35 Critical Care Statement: The care of this patient involved high complexity decision making to prevent further life threatening deterioration of the patient 's condition and/or to evaluate & treat vital organ system(s) failure or risk of failure.
[2018-09-22] MEDS: ALBUTEROL SO4 0.083% IH SOL 2.5 MG/3 ML VIAL.NEB. NEB SCH ×4 (08:45→21:15)
--- NOTE | 2018-09-22 08:53 | PN ---
Physical Exam: SUBJECTIVE: Patient seen and examined this AM. She states that she is still having difficulty breathing however it is improved from yesterday. Her complaint currently is that there is no volume on her television. OBJECTIVE: Vital Signs Period Temp Pulse Resp BP Sys/Nichols Pulse Ox Last 24 Hr 97.5 F-98.4 F 90-134 20-29 91-110/55-82 90-100 GEN: A&O, no acute distress HEENT: PERRL, EOMI, dry mucus membranes NECK: Supple, no lymphadenopathy HEART: Tachycardic, no murmurs noted LUNGS: Decreased breath sounds on the right base, otherwise CTA ABDOMEN: Soft, minimal tenderness in epigastric region EXTREMITIES: No peripheral edema, 2+ pulses, no calf tenderness NEURO: CN II-XII grossly in tact, decreased sensation in the distal UE with weakness of UE noted Laboratory Results - last 24 hr 09/21/18 09/21/18 09/21/18 07:37 12:54 13:06 WBC 11.3 H RBC 4.00 Hgb 10.6 L Hct 33.7 MCV 84.3 MCH 26.4 MCHC 31.3 L RDW 21.8 H Plt Count 433 D MPV 7.8 D Absolute Neuts (auto) 9.8 H Neutrophils % 86.6 H D Lymphocytes % 4.8 L D Monocytes % 7.8 Eosinophils % 0.1 D Basophils % 0.7 Nucleated RBC % 0 Hypochromia 0 Platelet Estimate Normal Polychromasia 1+ Poikilocytosis 1+ Anisocytosis 2+ Microcytosis 1+ Macrocytosis 0 Schistocytes 1+ PT with INR INR PTT (Actin FS) VBG pH 7.38 POC VBG pCO2 49.3 POC VBG pO2 40.3 H VBG HCO3 28.4 VBG O2 Sat (Sanjuanita) 71.9 VBG Base Excess 3.2 H Sodium Potassium Chloride Carbon Dioxide Anion Gap BUN Creatinine Creat Clearance w eGFR POC Glucometer Random Glucose Lactic Acid Calcium Phosphorus Magnesium 1.7 L Total Bilirubin AST ALT Alkaline Phosphatase Creatine Kinase Troponin I 0.04 Total Protein Albumin Triglycerides Cholesterol Total LDL Cholesterol HDL Cholesterol 09/21/18 09/21/18 09/21/18 13:06 13:06 13:06 WBC RBC Hgb Hct MCV MCH MCHC RDW Plt Count MPV Absolute Neuts (auto) Neutrophils % Lymphocytes % Monocytes % Eosinophils % Basophils % Nucleated RBC % Hypochromia Platelet Estimate Polychromasia Poikilocytosis Anisocytosis Microcytosis Macrocytosis Schistocytes PT with INR 19.50 H INR 1.64 H PTT (Actin FS) 40.5 H VBG pH POC VBG pCO2 POC VBG pO2 VBG HCO3 VBG O2 Sat (Sanjuanita) VBG Base Excess Sodium 141 Potassium 2.9 L* Chloride 103 Carbon Dioxide 28 Anion Gap 10 BUN 17 Creatinine 0.2 L Creat Clearance w eGFR 393.40 POC Glucometer Random Glucose 96 Lactic Acid 1.4 Calcium 9.1 Phosphorus Magnesium Total Bilirubin 0.4 AST 71 H ALT 41 Alkaline Phosphatase 360 H Creatine Kinase Troponin I Total Protein 6.6 Albumin 3.3 L Triglycerides Cholesterol Total LDL Cholesterol HDL Cholesterol 09/21/18 09/22/18 09/22/18 17:00 06:00 06:00 WBC 8.3 RBC 3.40 L Hgb 9.2 L Hct 28.1 L D MCV 82.8 MCH 27.0 MCHC 32.6 RDW 21.3 H Plt Count 420 MPV 7.6 Absolute Neuts (auto) 6.7 Neutrophils % 81.0 Lymphocytes % 8.7 D Monocytes % 9.6 Eosinophils % 0.5 D Basophils % 0.2 Nucleated RBC % 0 Hypochromia Platelet Estimate Polychromasia Poikilocytosis Anisocytosis Microcytosis Macrocytosis Schistocytes PT with INR 20.70 H INR 1.74 H PTT (Actin FS) VBG pH POC VBG pCO2 POC VBG pO2 VBG HCO3 VBG O2 Sat (Sanjuanita) VBG Base Excess Sodium Potassium Chloride Carbon Dioxide Anion Gap BUN Creatinine Creat Clearance w eGFR POC Glucometer 121 Random Glucose Lactic Acid Calcium Phosphorus Magnesium Total Bilirubin AST ALT Alkaline Phosphatase Creatine Kinase Troponin I Total Protein Albumin Triglycerides Cholesterol Total LDL Cholesterol HDL Cholesterol 09/22/18 06:00 WBC RBC Hgb Hct MCV MCH MCHC RDW Plt Count MPV Absolute Neuts (auto) Neutrophils % Lymphocytes % Monocytes % Eosinophils % Basophils % Nucleated RBC % Hypochromia Platelet Estimate Polychromasia Poikilocytosis Anisocytosis Microcytosis Macrocytosis Schistocytes PT with INR INR PTT (Actin FS) VBG pH POC VBG pCO2 POC VBG pO2 VBG HCO3 VBG O2 Sat (Sanjuanita) VBG Base Excess Sodium 140 Potassium 3.9 Chloride 106 Carbon Dioxide 26 Anion Gap 8 BUN 10 Creatinine < 0.1 L Creat Clearance w eGFR 875.53 POC Glucometer Random Glucose 70 L Lactic Acid Calcium 8.1 L Phosphorus 2.3 L Magnesium 2.0 Total Bilirubin 0.5 AST 47 H ALT 26 Alkaline Phosphatase 288 H Creatine Kinase 18 L Troponin I 0.05 Total Protein 5.4 L Albumin 2.7 L Triglycerides 91 Cholesterol 161 Total LDL Cholesterol 79 HDL Cholesterol 67 H Active Medications Generic Name Dose Route Start Last Admin Trade Name Freq PRN Reason Stop Dose Admin Acetaminophen 650 mg 09/21/18 20:28 09/21/18 20:50 Tylenol - PO 650 mg Q6H PRN Administration PAIN LEVEL 7 - 10 Albuterol Sulfate 1 amp 09/21/18 20:00 09/22/18 08:45 Ventolin 0.083% Nebulizer Soln - NEB 1 amp RQID LANDEN Administration Gabapentin 250 mg 09/21/18 22:00 09/22/18 06:30 Neurontin Oral Liquid - PO 250 mg TID LANDEN Administration Vancomycin HCl 1 gm in 200 mls @ 133.333 mls/hr 09/22/18 10:00 Vancomycin 1 Gm Premix - IVPB Q12H LANDEN Protocol Cefepime HCl 2 gm/ Dextrose 100 mls @ 200 mls/hr 09/21/18 18:00 09/22/18 02: 13 IVPB 200 mls/hr Q8H-IV LANDEN Administration Protocol Doxycycline Hyclate 100 mg/ 100 mls @ 50 mls/hr 09/21/18 22:00 09/21/18 21:01 Dextrose IVPB 50 mls/hr BID LANDEN Administration Levetiracetam 500 mg 09/21/18 22:00 09/21/18 20:59 Keppra - PO 500 mg BID LANDEN Administration Loperamide HCl 2 mg 09/22/18 10:00 Imodium - PO DAILY PRN DIARRHEA Metoprolol Tartrate 25 mg 09/21/18 22:00 09/21/18 20:59 Lopressor - PO Not Given BID [facility] Nitroglycerin 0.4 mg 09/21/18 16:42 Nitrostat - SL Q5M PRN FOR CHEST PAIN Non-Formulary Medication 1 each 09/22/18 10:00 Patient's Own Med PO DAILY [facility] Potassium Chloride 20 meq 09/22/18 10:00 K-Dur - PO DAILY [facility] Potassium Phos/Sodium Phos 1 packet 09/22/18 10:00 Phos-Nak Packet - PO BID [facility] Warfarin Sodium 5 mg 09/21/18 18:00 09/21/18 18:52 Coumadin - PO 5 mg DAILY@1800 [facility] Administration ASSESSMENT/PLAN: 38 yo female with PMH Afib (on coumadin), Non-Hodkin's Lymphoma s/p stem cell transplant on Jakafi, 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 weakness, Seizure hx, presents from [facility] with complaint of SOB, admitted to ICU for overnight monitoring of respiratory status NEURO -awake and alert -No signs of confusion -Hx Seizures Continue Keppra 500 mg BID [facility] CARDIOVASCULAR -Hx A-fib with tachycardia on monitor Cardiology consult appreciated Pt with Chronic sinus tachycardia, hold beta blockers as per cardiology INR subtherapeutic, continue warfarin and consider increased dose PULMONARY -Acute on Chronic Hypoxic Respiratory Failure Bilevel ventilation DuoNebs monitor ABG if patient will allow Maintain saturation > 90% -Possible RLL Pneumonia (Hospital Acquired), infiltrative changes compared with CXR prior to recent d/c *As below GI -Chronic diarrhea Stable with no fevers or concern for acute infection -Epigastric pain ID -Possible RLL Hospital Acquired pneumonia* Vanco/Cefepime/Doxy day 2 Prolonged QTc noted Consider post flu pneumonia as pt was flu positive on recent visit HEME/ONC -Subtherapeutic INR as above, titrate warfarin to INR 2-3 Heme consult appreciated will await further recs -Hx Hodgekins ([facility] per chart though pt states Hodgekins) Currently appears stable, will continue to monitor ENDOCRINE -DM Insulin sliding scale and BGMs for glycemic control PROPHYLAXIS -Continue warfarin, INR goal 2-3 FEN -monitor fluid status and add maintenance as necessary -monitor and replete -NPO, for now, resume tube feeds as tolerated DISPOSITION Stable for monitoring on the floors Visit type - Emergency Visit Emergency Visit: Yes ED Registration Date: 09/21/18 Care time: The patient presented to the Emergency Department on the above date and was hospitalized for further evaluation of their emergent condition. - New Patient This patient is new to me today: No - Critical Care Critical Care patient: Yes Total Critical Care Time (in minutes): 40 Critical Care Statement: The care of this patient involved high complexity decision making to prevent further life threatening deterioration of the patient 's condition and/or to evaluate & treat vital organ system(s) failure or risk of failure.
[2018-09-22] MEDS ORDERED: LOPERAMIDE HCL 2 MG CAPSULE PO PRN (10:00)
--- NOTE | 2018-09-22 10:27 | PN ---
Progress Note, Physician Chief Complaint: AWAKE ALERT IN ICU [address] STILL WITH DYSPNEA HAS NOT EATEN - Current Medication List Current Medications: Active Medications Acetaminophen (Tylenol -) 650 mg PO Q6H PRN PRN Reason: PAIN LEVEL 7 - 10 Last Admin: 09/21/18 20:50 Dose: 650 mg Albuterol Sulfate (Ventolin 0.083% Nebulizer Soln -) 1 amp NEB RQID [facility] Last Admin: 09/22/18 08:45 Dose: 1 amp Gabapentin (Neurontin Oral Liquid -) 250 mg PO TID [facility] Last Admin: 09/22/18 06:30 Dose: 250 mg Vancomycin HCl (Vancomycin 1 Gm Premix -) 1 gm in 200 mls @ 133.333 mls/hr IVPB Q12H [facility]; Protocol Cefepime HCl 2 gm/ Dextrose 100 mls @ 200 mls/hr IVPB Q8H-IV [facility]; Protocol Last Admin: 09/22/18 02:13 Dose: 200 mls/hr Doxycycline Hyclate 100 mg/ (Dextrose) 100 mls @ 50 mls/hr IVPB BID [facility] Last Admin: 09/21/18 21:01 Dose: 50 mls/hr Levetiracetam (Keppra -) 500 mg PO BID [facility] Last Admin: 09/21/18 20:59 Dose: 500 mg Loperamide HCl (Imodium -) 2 mg PO DAILY PRN PRN Reason: DIARRHEA Metoprolol Tartrate (Lopressor -) 25 mg PO BID [facility] Last Admin: 09/21/18 20:59 Dose: Not Given Nitroglycerin (Nitrostat -) 0.4 mg SL Q5M PRN PRN Reason: FOR CHEST PAIN Non-Formulary Medication (Patient's Own Med) 1 each PO DAILY [facility] Potassium Chloride (K-Dur -) 20 meq PO DAILY [facility] Potassium Phos/Sodium Phos (Phos-Nak Packet -) 1 packet PO BID [facility] Warfarin Sodium (Coumadin -) 5 mg PO DAILY@1800 [facility] Last Admin: 09/21/18 18:52 Dose: 5 mg - Objective Vital Signs: Vital Signs Temperature 98.2 F 09/22/18 06:00 Pulse Rate 108 H 09/22/18 08:44 Respiratory Rate 20 09/22/18 08:00 Blood Pressure 89/74 L 09/22/18 08:00 O2 Sat by Pulse Oximetry (%) 95 04/04/19 08:59 Constitutional: Yes: Mild Distress HENT: Yes: WNL Neck: Yes: WNL Cardiovascular: Yes: Tachycardia Respiratory: Yes: Diminished, On Venti-Mask Gastrointestinal: Yes: Normal Bowel Sounds, Soft Musculoskeletal: Yes: Muscle Weakness Extremities: Yes: Other Edema: No Integumentary: Yes: Other Wound/Incision: Yes: Other Psychiatric: Yes: WNL Labs: CBC, BMP 09/22/18 06:00 09/22/18 06:00 INR, PTT INR 1.74 (0.83-1.09) H 09/22/18 06:00 Problem List - Problems (1) Hypokalemia Code(s): E87.6 - HYPOKALEMIA (2) Hypomagnesemia Code(s): E83.42 - HYPOMAGNESEMIA (3) Hypoxia Code(s): R09.02 - HYPOXEMIA (4) Leukocytosis Code(s): D72.829 - ELEVATED WHITE BLOOD CELL COUNT, UNSPECIFIED Qualifiers: Leukocytosis type: unspecified Qualified Code(s): D72.829 - Elevated white blood cell count, unspecified (5) Shortness of breath Code(s): R06.02 - SHORTNESS OF BREATH (6) Tachycardia Code(s): R00.0 - TACHYCARDIA, UNSPECIFIED (7) Acute hypoxemic respiratory failure Code(s): J96.01 - ACUTE RESPIRATORY FAILURE WITH HYPOXIA (8) Anemia Code(s): D64.9 - ANEMIA, UNSPECIFIED (9) Hodgkin lymphoma Code(s): C81.90 - HODGKIN LYMPHOMA, UNSPECIFIED, UNSPECIFIED SITE (10) SIRS (systemic inflammatory response syndrome) Code(s): R65.10 - SIRS OF NON-INFECTIOUS ORIGIN W/O ACUTE ORGAN DYSFUNCTION Assessment/Plan IV ABX PER ID, WILL NEED FURTHER CULTURES R/O OPPORTUNISTIC INFECTION/FUNGAL. DESATURATION OF 02 SATS OCCURS WHEN PATIENT TRIES TO EAT AND REMOVES 02 MASK I D/W ICU TEAM FOR PLAN OF HIGH VOLUM FLOWVO WHEN EATING. NEBS/02 PULMONARY WORKUP DVT PROPHYLAXIS PT EVAL PLAN FOR REDUCING RE-HOSPITALIZATIONS AT SENIOR LIVING.
[2018-09-22] MEDS ORDERED: PT OWN MED DRAWER 7, Y5N ONE ×4 (11:10→19:59)
[2018-09-22] MEDS: DOXYCYCLINE INJECTION 100 MG in DEXTROSE 5%-WATER 100 ML IVPB SCH ×2 (11:13→22:38)
[2018-09-22] MEDS: POTASSIUM CHLORIDE TABS 20 MEQ TABLET.ER (FP) PO SCH (11:14)
[2018-09-22] MEDS: NAPH,MB-DB/K PH,MBDB POWDER PACKET PO SCH ×2 (11:14→22:39)
[2018-09-22] MEDS: levETIRAcetam 500 MG TABLET (FP) PO SCH ×2 (11:14→22:40)
--- NOTE | 2018-09-22 11:28 | PN ---
Progress Note, Physician History of Present Illness: AWAKE, RESPONSIVE SL TACHYPNEIC ON VENTIMASK AFEBRILE WBC IMPROVED BC (-) - Current Medication List Current Medications: Active Medications Acetaminophen (Tylenol -) 650 mg PO Q6H PRN PRN Reason: PAIN LEVEL 7 - 10 Last Admin: 09/21/18 20:50 Dose: 650 mg Albuterol Sulfate (Ventolin 0.083% Nebulizer Soln -) 1 amp NEB RQID [facility] Last Admin: 09/22/18 11:23 Dose: 1 amp Gabapentin (Neurontin Oral Liquid -) 250 mg PO TID [facility] Last Admin: 09/22/18 06:30 Dose: 250 mg Vancomycin HCl (Vancomycin 1 Gm Premix -) 1 gm in 200 mls @ 133.333 mls/hr IVPB Q12H [facility]; Protocol Cefepime HCl 2 gm/ Dextrose 100 mls @ 200 mls/hr IVPB Q8H-IV [facility]; Protocol Last Admin: 09/22/18 11:13 Dose: 200 mls/hr Doxycycline Hyclate 100 mg/ (Dextrose) 100 mls @ 50 mls/hr IVPB BID [facility] Last Admin: 09/22/18 11:13 Dose: 50 mls/hr Levetiracetam (Keppra -) 500 mg PO BID [facility] Last Admin: 09/22/18 11:14 Dose: 500 mg Loperamide HCl (Imodium -) 2 mg PO DAILY PRN PRN Reason: DIARRHEA Metoprolol Tartrate (Lopressor -) 25 mg PO BID [facility] Last Admin: 09/21/18 20:59 Dose: Not Given Nitroglycerin (Nitrostat -) 0.4 mg SL Q5M PRN PRN Reason: FOR CHEST PAIN Non-Formulary Medication (Patient's Own Med) 1 each PO DAILY [facility] Potassium Chloride (K-Dur -) 20 meq PO DAILY [facility] Last Admin: 09/22/18 11:14 Dose: 20 meq Potassium Phos/Sodium Phos (Phos-Nak Packet -) 1 packet PO BID [facility] Last Admin: 09/22/18 11:14 Dose: 1 packet Warfarin Sodium (Coumadin -) 5 mg PO DAILY@1800 [facility] Last Admin: 09/21/18 18:52 Dose: 5 mg - Objective Vital Signs: Vital Signs Temperature 98.6 F 09/22/18 10:00 Pulse Rate 120 H 09/22/18 10:00 Respiratory Rate 25 H 09/22/18 10:00 Blood Pressure 105/78 09/22/18 10:00 O2 Sat by Pulse Oximetry (%) 99 09/22/18 11:23 Constitutional: Yes: No Distress Eyes: Yes: Conjunctiva Clear Cardiovascular: Yes: Regular Rate and Rhythm, S1, S2 Respiratory: Yes: Diminished Gastrointestinal: Yes: Normal Bowel Sounds, Soft. No: Tenderness Edema: No Labs: CBC, BMP 09/22/18 06:00 09/22/18 06:00 INR, PTT INR 1.74 (0.83-1.09) H 09/22/18 06:00 Assessment/Plan RLL PNEUMONIA RESP INSUFFICIENCY NHL CONTINUE EMPIRIC VANCOMYCIN/ CEFEPIME/ DOXYCYCLINE
--- NOTE | 2018-09-22 13:20 | PN ---
Teaching Attending Note Name of Resident: Nic Capellan ATTENDING PHYSICIAN STATEMENT I saw and evaluated the patient. I reviewed the resident's note and discussed the case with the resident. I agree with the resident's findings and plan as documented. SUBJECTIVE: Pt seen and examined in the ICU. On BiPAP overnight now on partial rebreather. States breathing better today. No fevers or chills. OBJECTIVE: Vital Signs Period Temp Pulse Resp BP Sys/Nichols Pulse Ox Last 24 Hr 97.5 F-98.6 F 90-132 20-29 89-108/55-82 93-100 Intake & Output 09/19/18 09/20/18 09/21/18 09/22/18 23:59 23:59 23:59 23:59 Intake Total 250 180 Balance 250 180 Weight 63.503 kg Gen: mildly tachypneic with speaking Heart: tachycardic, regular Lung: decreased breath sounds at the bases Abd: soft, nontender Ext: no edema CBC, BMP 09/22/18 06:00 09/22/18 06:00 Active Medications Acetaminophen (Tylenol -) 650 mg PO Q6H PRN PRN Reason: PAIN LEVEL 7 - 10 Last Admin: 09/21/18 20:50 Dose: 650 mg Albuterol Sulfate (Ventolin 0.083% Nebulizer Soln -) 1 amp NEB RQID [facility] Last Admin: 09/22/18 11:23 Dose: 1 amp Gabapentin (Neurontin Oral Liquid -) 250 mg PO TID [facility] Last Admin: 09/22/18 06:30 Dose: 250 mg Vancomycin HCl (Vancomycin 1 Gm Premix -) 1 gm in 200 mls @ 133.333 mls/hr IVPB Q12H [facility]; Protocol Cefepime HCl 2 gm/ Dextrose 100 mls @ 200 mls/hr IVPB Q8H-IV [facility]; Protocol Last Admin: 09/22/18 11:13 Dose: 200 mls/hr Doxycycline Hyclate 100 mg/ (Dextrose) 100 mls @ 50 mls/hr IVPB BID [facility] Last Admin: 09/22/18 11:13 Dose: 50 mls/hr Levetiracetam (Keppra -) 500 mg PO BID [facility] Last Admin: 09/22/18 11:14 Dose: 500 mg Loperamide HCl (Imodium -) 2 mg PO DAILY PRN PRN Reason: DIARRHEA Metoprolol Tartrate (Lopressor -) 25 mg PO BID [facility] Last Admin: 09/21/18 20:59 Dose: Not Given Nitroglycerin (Nitrostat -) 0.4 mg SL Q5M PRN PRN Reason: FOR CHEST PAIN Non-Formulary Medication (Patient's Own Med) 1 each PO DAILY [facility] Potassium Chloride (K-Dur -) 20 meq PO DAILY [facility] Last Admin: 09/22/18 11:14 Dose: 20 meq Potassium Phos/Sodium Phos (Phos-Nak Packet -) 1 packet PO BID [facility] Last Admin: 09/22/18 11:14 Dose: 1 packet Warfarin Sodium (Coumadin -) 5 mg PO DAILY@1800 [facility] Last Admin: 09/21/18 18:52 Dose: 5 mg ASSESSMENT AND PLAN: Acute on Chronic Hypoxic Respiratory Failure Pneumonia Atelectasis Hodgkin's Lymphoma s/p Stem Cell Transplant h/o CVA Seizure Disorder h/o DVT - antibiotics per ID - f/u cultures - O2 to keep Spo2 >90% - BiPAP as needed to assist in work of breathing - PO as tolerated - incentive spirometry - inhaled bronchodilators - continue anticoagulation - can monitor on floor with pulse oximetry monitoring
[2018-09-22] MEDS ORDERED: INSULIN (NOVOLOG) ASPART 100 UNITS/ML 10ML VIAL ONE (13:37)
[2018-09-22] MEDS: VANCOMYCIN 1 GM PREMIX - 1 GM/200 ML BAG IVPB SCH ×2 (13:40→22:39)
[2018-09-22] MEDS ORDERED: SODIUM CHLORIDE 250 ML IV STA (16:35)
[2018-09-22] MEDS: WARFARIN NA 5 MG TABLET (UD) PO SCH (17:28)
--- NOTE | 2018-09-22 17:31 | PN ---
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 She was transferred from nursing facility with dyspnea, chest tightness, chills and noted to be hypoxic and was placed on BiPAP with improvement in saturation. ECG showed sinus tachycardia without ST changes. Her CXR shows clear lungs with cardiomegaly. She is being treated with empiric antibiotic and fluid hydration. Echocardiogram 07/2018 EF 45-50% with mild global hypokinesis. No significant valvular disease or pulmonary HTN was noted. - Current Medication List Current Medications: Active Medications Acetaminophen (Tylenol -) 650 mg PO Q6H PRN PRN Reason: PAIN LEVEL 7 - 10 Last Admin: 09/21/18 20:50 Dose: 650 mg Albuterol Sulfate (Ventolin 0.083% Nebulizer Soln -) 1 amp NEB RQID [facility] Last Admin: 09/22/18 16:30 Dose: Not Given Gabapentin (Neurontin Oral Liquid -) 250 mg PO TID [facility] Last Admin: 09/22/18 13:41 Dose: 250 mg Vancomycin HCl (Vancomycin 1 Gm Premix -) 1 gm in 200 mls @ 133.333 mls/hr IVPB Q12H [facility]; Protocol Last Admin: 09/22/18 13:40 Dose: 133.333 mls/hr Cefepime HCl 2 gm/ Dextrose 100 mls @ 200 mls/hr IVPB Q8H-IV [facility]; Protocol Last Admin: 09/22/18 11:13 Dose: 200 mls/hr Doxycycline Hyclate 100 mg/ (Dextrose) 100 mls @ 50 mls/hr IVPB BID [facility] Last Admin: 09/22/18 11:13 Dose: 50 mls/hr Sodium Chloride (Normal Saline -) 250 mls @ 250 mls/hr IV [facility] STA Stop: 09/22/18 17:34 Levetiracetam (Keppra -) 500 mg PO BID [facility] Last Admin: 09/22/18 11:14 Dose: 500 mg Loperamide HCl (Imodium -) 2 mg PO DAILY PRN PRN Reason: DIARRHEA Metoprolol Tartrate (Lopressor -) 25 mg PO BID [facility] Last Admin: 09/21/18 20:59 Dose: Not Given Nitroglycerin (Nitrostat -) 0.4 mg SL Q5M PRN PRN Reason: FOR CHEST PAIN Non-Formulary Medication (Patient's Own Med) 1 each PO DAILY [facility] Potassium Chloride (K-Dur -) 20 meq PO DAILY [facility] Last Admin: 09/22/18 11:14 Dose: 20 meq Potassium Phos/Sodium Phos (Phos-Nak Packet -) 1 packet PO BID [facility] Last Admin: 09/22/18 11:14 Dose: 1 packet Warfarin Sodium (Coumadin -) 5 mg PO DAILY@1800 [facility] Last Admin: 09/21/18 18:52 Dose: 5 mg - Objective Vital Signs: Vital Signs Temperature 98.9 F 09/22/18 14:00 Pulse Rate 124 H 09/22/18 14:00 Respiratory Rate 28 H 09/22/18 14:00 Blood Pressure 100/73 09/22/18 14:00 O2 Sat by Pulse Oximetry (%) 98 09/22/18 16:30 Constitutional: Yes: Cachectic Eyes: Yes: Conjunctiva Clear, EOM Intact HENT: Yes: Atraumatic, Normocephalic Neck: Yes: Supple, Trachea Midline Cardiovascular: Yes: Tachycardia Respiratory: Yes: Regular, CTA Bilaterally Gastrointestinal: Yes: Normal Bowel Sounds, Soft Edema: No Labs: CBC, BMP 09/22/18 06:00 09/22/18 06:00 INR, PTT INR 1.74 (0.83-1.09) H 09/22/18 06:00 Problem List - Problems (1) Hypomagnesemia Code(s): E83.42 - HYPOMAGNESEMIA (2) Hypoxia Code(s): R09.02 - HYPOXEMIA Assessment/Plan 38 yo F with non-Hodgkin lymphoma post stem cell transplant, 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 She was transferred from nursing facility with dyspnea, chest tightness, chills and noted to be hypoxic and was placed on BiPAP with improvement in saturation. ECG showed sinus tachycardia without ST changes. Her CXR shows clear lungs with cardiomegaly. She is being treated with empiric antibiotic and fluid hydration. Echocardiogram 07/2018 EF 45-50% with mild global hypokinesis. No significant valvular disease or pulmonary HTN was noted. Being treated for PNA. Has sinus tachycardia which is chronic now exacerbated in setting of infection. Using BB is not indicated in this setting. Will see as needed
--- NOTE | 2018-09-22 20:33 | PN ---
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 Esperanza [phone]
[2018-09-22] MEDS: JAKAFI 5 MG PO SCH (22:38)
[2018-09-22] MEDS: ACETAMINOPHEN 325 MG TABLET (FP) PO PRN (22:39)
[2018-09-23] MEDS ORDERED: MORPHINE SULFATE 2 MG/ML VIAL IVPUSH ONE (00:26)
[2018-09-23] MEDS: CEFEPIME 2 GM in DEXTROSE 5%-WATER 100 ML IVPB SCH ×3 (02:58→17:37)
[2018-09-23] MEDS: ACETAMINOPHEN 325 MG TABLET (FP) PO PRN (03:41)
[2018-09-23] MEDS ORDERED: PT OWN MED DRAWER 7, Y5N ONE ×3 (05:29→22:05)
[2018-09-23] MEDS: GABAPENTIN 250 MG/5 ML ORAL SOLUTION, 470 ML BOTTLE PO SCH ×3 (05:35→21:51)
[2018-09-23 06:24] LABS: BASO % 0.6 % (0-2.0); EOS % 0.8 % (0-4.5); HEMOGLOBIN 8.9 GM/dL (10.7-15.3); LYMPH % 9.9 % (8-40); MCH 26.4 pg (25.7-33.7); MCHC 31.8 g/dl (32.0-36.0); MEAN PLT VOLUME 7.8 fl (7.5-11.1); MONO % 15.6 % (3.8-10.2); NEUT % 73.1 % (42.8-82.8); PLATELET COUNT 402 K/MM3 (134-434); RBC 3.37 M/mm3 (3.60-5.2); RDW 20.8 % (11.6-15.6); WHITE BLOOD COUNT 6.4 K/mm3 (4.0-10.0)
[2018-09-23 06:58] LABS: ALBUMIN 2.4 g/dl (3.4-5.0); ALK PHOS 324 U/L (45-117); ANION GAP 8 MMOL/L (8-16); BILIRUBIN,TOTAL 0.5 mg/dL (0.2-1); BLOOD UREA NITROGEN 9 mg/dL (7-18); CALCIUM 7.7 mg/dL (8.5-10.1); CHLORIDE 104 mmol/L (98-107); CO2 26 mmol/L (21-32); CREATININE 0.2 mg/dL (0.55-1.3); GLUCOSE,RANDOM 98 mg/dL (74-106); MAGNESIUM 1.6 mg/dL (1.8-2.4); PHOSPHOROUS 4.1 mg/dL (2.5-4.9); POTASSIUM 3.8 mmol/L (3.5-5.1); SGOT/AST 66 U/L (15-37); SGPT/ALT 31 U/L (13-61); SODIUM 138 mmol/L (136-145)
[2018-09-23] MEDS: ALBUTEROL SO4 0.083% IH SOL 2.5 MG/3 ML VIAL.NEB. NEB SCH ×4 (07:25→21:00)
--- NOTE | 2018-09-23 08:19 | PN ---
Physical Exam: SUBJECTIVE: Patient seen and examined this AM. She states she is feeling better though still with some difficulty breathing OBJECTIVE: Vital Signs Period Temp Pulse Resp BP Sys/Nichols Pulse Ox Last 24 Hr 98.2 F-100.6 F 96-148 17-30 84-105/60-81 95-100 GEN: A&O, no acute distress HEENT: PERRL, EOMI, dry mucus membranes NECK: Supple, no lymphadenopathy HEART: Tachycardic, no murmurs noted LUNGS: Decreased breath sounds on the right base, otherwise CTA ABDOMEN: Soft, minimal tenderness in epigastric region EXTREMITIES: No peripheral edema, 2+ pulses, no calf tenderness NEURO: CN II-XII grossly in tact, decreased sensation in the distal UE with weakness of UE noted Laboratory Results - last 24 hr 09/23/18 09/23/18 05:30 05:30 WBC 6.4 RBC 3.37 L Hgb 8.9 L Hct 28.0 L MCV 83.0 MCH 26.4 MCHC 31.8 L RDW 20.8 H Plt Count 402 MPV 7.8 Absolute Neuts (auto) 4.7 Neutrophils % 73.1 Lymphocytes % 9.9 Monocytes % 15.6 H Eosinophils % 0.8 Basophils % 0.6 Nucleated RBC % 0 Sodium 138 Potassium 3.8 Chloride 104 Carbon Dioxide 26 Anion Gap 8 BUN 9 Creatinine 0.2 L Creat Clearance w eGFR 393.40 Random Glucose 98 Calcium 7.7 L Phosphorus 4.1 Magnesium 1.6 L Total Bilirubin 0.5 AST 66 H ALT 31 Alkaline Phosphatase 324 H Total Protein 5.0 L Albumin 2.4 L Active Medications Generic Name Dose Route Start Last Admin Trade Name Franciscoq PRN Reason Stop Dose Admin Acetaminophen 650 mg 09/21/18 20:28 09/23/18 03:41 Tylenol - PO 650 mg Q6H PRN Administration PAIN LEVEL 7 - 10 Albuterol Sulfate 1 amp 09/21/18 20:00 09/22/18 21:15 Ventolin 0.083% Nebulizer Soln - NEB 1 amp RQID [facility] Administration Gabapentin 250 mg 09/21/18 22:00 09/23/18 05:35 Neurontin Oral Liquid - PO 250 mg TID [facility] Administration Vancomycin HCl 1 gm in 200 mls @ 133.333 mls/hr 09/22/18 10:00 09/22/18 22:39 Vancomycin 1 Gm Premix - IVPB 133.333 mls/hr Q12H [facility] Administration Protocol Cefepime HCl 2 gm/ Dextrose 100 mls @ 200 mls/hr 09/21/18 18:00 09/23/18 02: 58 IVPB 200 mls/hr Q8H-IV [facility] Administration Protocol Doxycycline Hyclate 100 mg/ 100 mls @ 50 mls/hr 09/21/18 22:00 09/22/18 22:38 Dextrose IVPB 50 mls/hr BID [facility] Administration Levetiracetam 500 mg 09/21/18 22:00 09/22/18 22:40 Keppra - PO 500 mg BID [facility] Administration Loperamide HCl 2 mg 09/22/18 10:00 Imodium - PO DAILY PRN DI[facility] Metoprolol Tartrate 25 mg 09/21/18 22:00 09/21/18 20:59 Lopressor - PO Not Given BID [facility] Nitroglycerin 0.4 mg 09/21/18 16:42 Nitrostat - SL Q5M PRN FOR CHEST PAIN Patient's Own Med ( 1 each 09/22/18 20:15 09/22/18 22:38 Jakafi 5mg) PO 1 each BID [facility] Administration Potassium Chloride 20 meq 09/22/18 10:00 09/22/18 11:14 K-Dur - PO 20 meq DAILY [facility] Administration Potassium Phos/Sodium Phos 1 packet 09/22/18 10:00 09/22/18 22:39 Phos-Nak Packet - PO 1 packet BID [facility] Administration Warfarin Sodium 5 mg 09/21/18 18:00 09/22/18 17:28 Coumadin - PO 5 mg DAILY@1800 [facility] Administration ASSESSMENT/PLAN: 38 yo female with PMH Afib (on coumadin), Non-Hodkin's Lymphoma s/p stem cell transplant on Jakafi, 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 weakness, Seizure hx, presents from [facility] with complaint of SOB, admitted to ICU for overnight monitoring of respiratory status NEURO -awake and alert -No signs of confusion -Hx Seizures Continue Keppra 500 mg BID [facility]ARDIOVASCULAR -Hx A-fib with tachycardia on monitor Cardiology consult appreciated Pt with Chronic sinus tachycardia, hold beta blockers as per cardiology INR subtherapeutic, continue warfarin and consider increased dose PULMONARY -Acute on Chronic Hypoxic Respiratory Failure Bilevel ventilation as needed DuoNebs monitor ABG if patient will allow Maintain saturation > 90% -Possible RLL Pneumonia (Hospital Acquired), infiltrative changes compared with CXR prior to recent d/c *As below GI -Chronic diarrhea Stable with no fevers or concern for acute infection -Epigastric pain ID -Possible RLL Hospital Acquired pneumonia* Vanco/Cefepime/Doxy day 2 Prolonged QTc noted Consider post flu pneumonia as pt was flu positive on recent visit Follow vanc trough Sputum cultures urine legionella pending blood cultures pending HEME/ONC -Subtherapeutic INR as above, titrate warfarin to INR 2-3 Heme consult appreciated will await further recs -Hx Hodgekins ([facility]HL per chart though pt states Hodgekins) Currently appears stable, will continue to monitor ENDOCRINE -DM Insulin sliding scale and BGMs for glycemic control PROPHYLAXIS -Continue warfarin, INR goal 2-3 FEN -monitor fluid status and add maintenance as necessary -monitor and replete -Soft diet DISPOSITION Stable for monitoring on the floors Visit type - Emergency Visit Emergency Visit: Yes ED Registration Date: 09/21/18 Care time: The patient presented to the Emergency Department on the above date and was hospitalized for further evaluation of their emergent condition. - New Patient This patient is new to me today: No - Critical Care Critical Care patient: No
--- NOTE | 2018-09-23 09:27 | PN ---
Physical Exam: SUBJECTIVE: Patient seen and examined OBJECTIVE: Vital Signs Period Temp Pulse Resp BP Sys/Nichols Pulse Ox Last 24 Hr 98.2 F-100.6 F 96-148 17-30 84-106/60-81 96-100 GENERAL: The patient is awake, alert, and fully oriented, in no acute distress. HEAD: Normal with no signs of trauma. EYES: PERRL, extraocular movements intact, sclera anicteric, conjunctiva clear. No ptosis. ENT: Ears normal, nares patent, oropharynx clear without exudates, moist mucous membranes. NECK: Trachea midline, full range of motion, supple. LUNGS: Breath sounds equal, clear to auscultation bilaterally, no wheezes, no crackles, no accessory muscle use. HEART: Regular rate and rhythm, S1, S2 without murmur, rub or gallop. ABDOMEN: Soft, nontender, nondistended, normoactive bowel sounds, no guarding, no rebound, no hepatosplenomegaly, no masses. EXTREMITIES: 2+ pulses, warm, well-perfused, no edema. NEUROLOGICAL: Cranial nerves II through XII grossly intact. Normal speech, gait not observed. PSYCH: Normal mood, normal affect. SKIN: Warm, dry, normal turgor, no rashes or lesions noted Laboratory Results - last 24 hr 09/23/18 09/23/18 05:30 05:30 WBC 6.4 RBC 3.37 L Hgb 8.9 L Hct 28.0 L MCV 83.0 MCH 26.4 MCHC 31.8 L RDW 20.8 H Plt Count 402 MPV 7.8 Absolute Neuts (auto) 4.7 Neutrophils % 73.1 Lymphocytes % 9.9 Monocytes % 15.6 H Eosinophils % 0.8 Basophils % 0.6 Nucleated RBC % 0 Sodium 138 Potassium 3.8 Chloride 104 Carbon Dioxide 26 Anion Gap 8 BUN 9 Creatinine 0.2 L Creat Clearance w eGFR 393.40 Random Glucose 98 Calcium 7.7 L Phosphorus 4.1 Magnesium 1.6 L Total Bilirubin 0.5 AST 66 H ALT 31 Alkaline Phosphatase 324 H Total Protein 5.0 L Albumin 2.4 L Active Medications Generic Name Dose Route Start Last Admin Trade Name Freq PRN Reason Stop Dose Admin Acetaminophen 650 mg 09/21/18 20:28 09/23/18 03:41 Tylenol - PO 650 mg Q6H PRN Administration PAIN LEVEL 7 - 10 Albuterol Sulfate 1 amp 09/21/18 20:00 09/23/18 07:25 Ventolin 0.083% Nebulizer Soln - NEB 1 amp RQID [facility] Administration Gabapentin 250 mg 09/21/18 22:00 09/23/18 05:35 Neurontin Oral Liquid - PO 250 mg TID [facility] Administration Vancomycin HCl 1 gm in 200 mls @ 133.333 mls/hr 09/22/18 10:00 09/22/18 22:39 Vancomycin 1 Gm Premix - IVPB 133.333 mls/hr Q12H [facility] Administration Protocol Cefepime HCl 2 gm/ Dextrose 100 mls @ 200 mls/hr 09/21/18 18:00 09/23/18 02: 58 IVPB 200 mls/hr Q8H-IV [facility] Administration Protocol Doxycycline Hyclate 100 mg/ 100 mls @ 50 mls/hr 09/21/18 22:00 09/22/18 22:38 Dextrose IVPB 50 mls/hr BID [facility] Administration Levetiracetam 500 mg 09/21/18 22:00 09/22/18 22:40 Keppra - PO 500 mg BID [facility] Administration Loperamide HCl 2 mg 09/22/18 10:00 Imodium - PO DAILY PRN [facility] Metoprolol Tartrate 25 mg 09/21/18 22:00 09/21/18 20:59 Lopressor - PO Not Given BID [facility] Nitroglycerin 0.4 mg 09/21/18 16:42 Nitrostat - SL Q5M PRN FOR CHEST PAIN Patient's Own Med ( 1 each 09/22/18 20:15 09/22/18 22:38 Jakafi 5mg) PO 1 each BID [facility] Administration Potassium Chloride 20 meq 09/22/18 10:00 09/22/18 11:14 K-Dur - PO 20 meq DAILY [facility] Administration Potassium Phos/Sodium Phos 1 packet 09/22/18 10:00 09/22/18 22:39 Phos-Nak Packet - PO 1 packet BID [facility] Administration Warfarin Sodium 5 mg 09/21/18 18:00 09/22/18 17:28 Coumadin - PO 5 mg DAILY@1800 [facility] Administration ASSESSMENT/PLAN:
[2018-09-23] MEDS: NAPH,MB-DB/K PH,MBDB POWDER PACKET PO SCH ×2 (09:29→21:51)
[2018-09-23] MEDS: JAKAFI 5 MG PO SCH ×2 (09:29→21:51)
[2018-09-23] MEDS: DOXYCYCLINE INJECTION 100 MG in DEXTROSE 5%-WATER 100 ML IVPB SCH ×2 (09:29→22:06)
[2018-09-23] MEDS: levETIRAcetam 500 MG TABLET (FP) PO SCH ×2 (09:31→21:51)
[2018-09-23] MEDS: POTASSIUM CHLORIDE TABS 20 MEQ TABLET.ER (FP) PO SCH (09:31)
--- NOTE | 2018-09-23 09:51 | PN ---
Progress Note, Physician - Current Medication List Current Medications: Active Medications Acetaminophen (Tylenol -) 650 mg PO Q6H PRN PRN Reason: PAIN LEVEL 7 - 10 Last Admin: 09/23/18 03:41 Dose: 650 mg Albuterol Sulfate (Ventolin 0.083% Nebulizer Soln -) 1 amp NEB RQID [facility] Last Admin: 09/23/18 07:25 Dose: 1 amp Gabapentin (Neurontin Oral Liquid -) 250 mg PO TID [facility] Last Admin: 09/23/18 05:35 Dose: 250 mg Vancomycin HCl (Vancomycin 1 Gm Premix -) 1 gm in 200 mls @ 133.333 mls/hr IVPB Q12H [facility]; Protocol Last Admin: 09/22/18 22:39 Dose: 133.333 mls/hr Cefepime HCl 2 gm/ Dextrose 100 mls @ 200 mls/hr IVPB Q8H-IV [facility]; Protocol Last Admin: 09/23/18 09:27 Dose: 200 mls/hr Doxycycline Hyclate 100 mg/ (Dextrose) 100 mls @ 50 mls/hr IVPB BID [facility] Last Admin: 09/23/18 09:29 Dose: 50 mls/hr Levetiracetam (Keppra -) 500 mg PO BID [facility] Last Admin: 09/23/18 09:31 Dose: 500 mg Loperamide HCl (Imodium -) 2 mg PO DAILY PRN PRN Reason: DIARRHEA Metoprolol Tartrate (Lopressor -) 25 mg PO BID [facility] Last Admin: 09/21/18 20:59 Dose: Not Given Nitroglycerin (Nitrostat -) 0.4 mg SL Q5M PRN PRN Reason: FOR CHEST PAIN Patient's Own Med ( (Jakafi 5mg)) 1 each PO BID [facility] Last Admin: 09/23/18 09:29 Dose: 1 each Potassium Chloride (K-Dur -) 20 meq PO DAILY [facility] Last Admin: 09/23/18 09:31 Dose: 20 meq Potassium Phos/Sodium Phos (Phos-Nak Packet -) 1 packet PO BID [facility] Last Admin: 09/23/18 09:29 Dose: 1 packet Warfarin Sodium (Coumadin -) 5 mg PO DAILY@1800 [facility] Last Admin: 09/22/18 17:28 Dose: 5 mg - Objective Vital Signs: Vital Signs Temperature 98.5 F 09/23/18 06:00 Pulse Rate 103 H 09/23/18 08:00 Respiratory Rate 21 H 09/23/18 08:00 Blood Pressure 106/70 09/23/18 08:00 O2 Sat by Pulse Oximetry (%) 100 09/23/18 08:40 Cardiovascular: Yes: S1, S2 Respiratory: Yes: On BiPap Gastrointestinal: Yes: Normal Bowel Sounds, Soft Labs: CBC, BMP 09/23/18 05:30 09/23/18 05:30 INR, PTT INR 1.74 (0.83-1.09) H 09/22/18 06:00 Problem List - Problems (1) Acute hypoxemic respiratory failure Assessment/Plan: -pulm consult -continue with BiPap -bronchodilators -keep SpO2 >90% -WBC 11.3 -ID consult placed -received IV vancomycin and zosyn in ER -afebrile -monitor WBC for downtrend Code(s): J96.01 - ACUTE RESPIRATORY FAILURE WITH HYPOXIA (2) Pneumonia Assessment/Plan: as above Code(s): J18.9 - PNEUMONIA, UNSPECIFIED ORGANISM (3) Hypokalemia Assessment/Plan: - -K+ 2.9 --received KCl -monitor electrolytes daily -replete as needed -Mg 1.7--received Magnesium 2gIVPB x 1 dose Code(s): E87.6 - HYPOKALEMIA (4) Hodgkin lymphoma Assessment/Plan: -continue Jakafi -hematology consult Code(s): C81.90 - HODGKIN LYMPHOMA, UNSPECIFIED, UNSPECIFIED SITE (5) Anticoagulant long-term use Assessment/Plan: Hg 10.6 -monitor Hg daily -transfuse if Hg <8.0 -continue with Coumdain -therapeutic goal INR 2-3 -daily INR monitoring Code(s): Z79.01 - [facility] (CURRENT) USE OF ANTICOAGULANTS
[2018-09-23] MEDS ORDERED: MAGNESIUM SULF 50% (8.12 MEQ/2 ML-1 GM VIAL) IVPB ONE (11:50)
--- NOTE | 2018-09-23 11:52 | PN ---
Teaching Attending Note Name of Resident: Nic Capellan ATTENDING PHYSICIAN STATEMENT I saw and evaluated the patient. I reviewed the resident's note and discussed the case with the resident. I agree with the resident's findings and plan as documented. SUBJECTIVE: Patient seen and examined in the ICU. Currently on 100% NRBM. Reports some mild improvement in her breathing. Reports cramping in her hands. Intake & Output 09/20/18 09/21/18 09/22/18 09/23/18 23:59 23:59 23:59 23:59 Intake Total 250 1950 100 Balance 250 1950 100 Weight 140 lb 140 lb Last Vital Signs Temp Pulse Resp BP Pulse Ox 98.0 F 105 H 24 H 100/73 100 09/23/18 10:00 09/23/18 10:00 09/23/18 10:00 09/23/18 10:00 09/23/18 09:00 Active Medications Acetaminophen (Tylenol -) 650 mg PO Q6H PRN PRN Reason: PAIN LEVEL 7 - 10 Last Admin: 09/23/18 03:41 Dose: 650 mg Albuterol Sulfate (Ventolin 0.083% Nebulizer Soln -) 1 amp NEB RQID [facility] Last Admin: 09/23/18 07:25 Dose: 1 amp Gabapentin (Neurontin Oral Liquid -) 250 mg PO TID [facility] Last Admin: 09/23/18 05:35 Dose: 250 mg Vancomycin HCl (Vancomycin 1 Gm Premix -) 1 gm in 200 mls @ 133.333 mls/hr IVPB Q12H [facility]; Protocol Last Admin: 09/22/18 22:39 Dose: 133.333 mls/hr Cefepime HCl 2 gm/ Dextrose 100 mls @ 200 mls/hr IVPB Q8H-IV [facility]; Protocol Last Admin: 09/23/18 09:27 Dose: 200 mls/hr Doxycycline Hyclate 100 mg/ (Dextrose) 100 mls @ 50 mls/hr IVPB BID [facility] Last Admin: 09/23/18 09:29 Dose: 50 mls/hr Levetiracetam (Keppra -) 500 mg PO BID [facility] Last Admin: 09/23/18 09:31 Dose: 500 mg Loperamide HCl (Imodium -) 2 mg PO DAILY PRN PRN Reason: DIARRHEA Magnesium Sulfate (Magnesium Sulfate) 2 gm IVPB ONCE ONE Stop: 09/23/18 11:51 Metoprolol Tartrate (Lopressor -) 25 mg PO BID [facility] Last Admin: 09/21/18 20:59 Dose: Not Given Nitroglycerin (Nitrostat -) 0.4 mg SL Q5M PRN PRN Reason: FOR CHEST PAIN Patient's Own Med ( (Jakafi 5mg)) 1 each PO BID [facility] Last Admin: 09/23/18 09:29 Dose: 1 each Potassium Chloride (K-Dur -) 20 meq PO DAILY [facility] Last Admin: 09/23/18 09:31 Dose: 20 meq Potassium Phos/Sodium Phos (Phos-Nak Packet -) 1 packet PO BID [facility] Last Admin: 09/23/18 09:29 Dose: 1 packet Warfarin Sodium (Coumadin -) 5 mg PO DAILY@1800 [facility] Last Admin: 09/22/18 17:28 Dose: 5 mg Gen: Awake and alert, mildly tachypneic with speaking Heart: tachycardic, regular Lung: Scattered rhonchi, decreased breath sounds at the bases Abd: soft, nontender Ext: no edema Laboratory Results - last 24 hr 09/23/18 09/23/18 05:30 05:30 WBC 6.4 RBC 3.37 L Hgb 8.9 L Hct 28.0 L MCV 83.0 MCH 26.4 MCHC 31.8 L RDW 20.8 H Plt Count 402 MPV 7.8 Absolute Neuts (auto) 4.7 Neutrophils % 73.1 Lymphocytes % 9.9 Monocytes % 15.6 H Eosinophils % 0.8 Basophils % 0.6 Nucleated RBC % 0 Sodium 138 Potassium 3.8 Chloride 104 Carbon Dioxide 26 Anion Gap 8 BUN 9 Creatinine 0.2 L Creat Clearance w eGFR 393.40 Random Glucose 98 Calcium 7.7 L Phosphorus 4.1 Magnesium 1.6 L Total Bilirubin 0.5 AST 66 H ALT 31 Alkaline Phosphatase 324 H Total Protein 5.0 L Albumin 2.4 L ASSESSMENT AND PLAN: Acute on Chronic Hypoxic Respiratory Failure Pneumonia Atelectasis Hodgkin's Lymphoma s/p Stem Cell Transplant h/o CVA Seizure Disorder h/o DVT - Replete Lytes - Antibiotics per ID - f/u cultures - O2 to keep Spo2 >90% - NIPPV as needed to assist in work of breathing - PO as tolerated - Incentive spirometry - Inhaled bronchodilators - Continue anticoagulation - Trial of Gabapentin - 4W / 4S monitoring Dr Ramos
--- NOTE | 2018-09-23 12:29 | PN ---
Teaching Attending Note Name of Resident: Liam Castellano ATTENDING PHYSICIAN STATEMENT I saw and evaluated the patient. I reviewed the resident's note and discussed the case with the resident. I agree with the resident's findings and plan as documented. SUBJECTIVE: Patient seen and examined States breathing is improved Last Vital Signs Temp Pulse Resp BP Pulse Ox 98.0 F 105 H 24 H 100/73 100 09/23/18 10:00 09/23/18 10:00 09/23/18 10:00 09/23/18 10:00 09/23/18 09:00 HEENT: PATRICE, EOM Intact Cor: RSR, No murmurs, No gallops Lungs: poor inspiratory effort Abd: Soft, Normal bowel sounds, No organomegaly Ext:No significant edema Skin: GVHD Current Medications Generic Name Dose Route Start Last Admin Trade Name Freq PRN Reason Stop Dose Admin Acetaminophen 650 mg 09/21/18 20:28 09/23/18 03:41 Tylenol - PO 650 mg Q6H PRN Administration PAIN LEVEL 7 - 10 Albuterol Sulfate 1 amp 09/21/18 20:00 09/23/18 11:25 Ventolin 0.083% Nebulizer Soln - NEB 1 amp RQID [facility] Administration Gabapentin 250 mg 09/21/18 22:00 09/23/18 05:35 Neurontin Oral Liquid - PO 250 mg TID [facility] Administration Vancomycin HCl 1 gm in 200 mls @ 133.333 mls/hr 09/22/18 10:00 09/22/18 22:39 Vancomycin 1 Gm Premix - IVPB 133.333 mls/hr Q12H [facility] Administration Protocol Cefepime HCl 2 gm/ Dextrose 100 mls @ 200 mls/hr 09/21/18 18:00 09/23/18 09: 27 IVPB 200 mls/hr Q8H-IV [facility] Administration Protocol Doxycycline Hyclate 100 mg/ 100 mls @ 50 mls/hr 09/21/18 22:00 09/23/18 09:29 Dextrose IVPB 50 mls/hr BID [facility] Administration Levetiracetam 500 mg 09/21/18 22:00 09/23/18 09:31 Keppra - PO 500 mg BID [facility] Administration Loperamide HCl 2 mg 09/22/18 10:00 Imodium - PO DAILY PRN DIARRHEA Metoprolol Tartrate 25 mg 09/21/18 22:00 09/21/18 20:59 Lopressor - PO Not Given BID [facility] Nitroglycerin 0.4 mg 09/21/18 16:42 Nitrostat - SL Q5M PRN FOR CHEST PAIN Patient's Own Med ( 1 each 09/22/18 20:15 09/23/18 09:29 Jakafi 5mg) PO 1 each BID [facility] Administration Potassium Chloride 20 meq 09/22/18 10:00 09/23/18 09:31 K-Dur - PO 20 meq DAILY [facility] Administration Potassium Phos/Sodium Phos 1 packet 09/22/18 10:00 09/23/18 09:29 Phos-Nak Packet - PO 1 packet BID [facility] Administration Warfarin Sodium 5 mg 09/21/18 18:00 09/22/18 17:28 Coumadin - PO 5 mg DAILY@1800 [facility] Administration Impression: Acute hypoxic respiratory failure H/O Hodgkins Diseasee S/P allogenic SCT GVHD involving skin Pneumonia Seizure disorder H/O DVT Plan: Continuation of Jakofi Antibiotics per ID decadron mouth wash- have spoken to pharmacy. OBJECTIVE: ASSESSMENT AND PLAN:
[2018-09-23 12:51] LABS: INR 1.96 (0.83-1.09); PROTHROMBIN TIME (PATIENT) 23.3 SEC (9.7-13.0)
--- NOTE | 2018-09-23 12:56 | PN ---
Progress Note (short form) - Note Progress Note: remains on NRB alert continued cough with chest discomfort Vital Signs Period Temp Pulse Resp BP Sys/Nichols Pulse Ox Last 24 Hr 98.0 F-100.6 F 96-148 17-30 84-106/60-81 96-100 cor-rrr lungs decreased bs at bases abd soft,nt ext no edema +skin changes +central line CBC, BMP 09/23/18 05:30 09/23/18 05:30 Microbiology 09/21/18 13:06 Blood - Axel Cath Blood Culture - Preliminary NO GROWTH OBTAINED AFTER 24 HOURS, INCUBATION TO CONTINUE FOR 4 DAYS. 09/21/18 13:05 Blood - Axel Cath Blood Culture - Preliminary NO GROWTH OBTAINED AFTER 24 HOURS, INCUBATION TO CONTINUE FOR 4 DAYS. sputum culture pending a/p acute respiratory failure (hypoxia) Right basilar pneumonia recent admission recent influenza immunocompromised host prolonged qtc vancomycin/cefepime/doxycyline- urinaryantigens sputum culture blood cultures f/u vancomycin trough f/u sputum culture
[2018-09-23] MEDS: VANCOMYCIN 1 GM PREMIX - 1 GM/200 ML BAG IVPB SCH ×2 (13:29→21:51)
[2018-09-23] MEDS: WARFARIN NA 5 MG TABLET (UD) PO SCH (17:37)
[2018-09-24] MEDS ORDERED: PT OWN MED DRAWER 7, Y5N ONE ×3 (04:40→21:20)
[2018-09-24] MEDS: CEFEPIME 2 GM in DEXTROSE 5%-WATER 100 ML IVPB SCH ×3 (04:42→17:56)
[2018-09-24] MEDS: GABAPENTIN 250 MG/5 ML ORAL SOLUTION, 470 ML BOTTLE PO SCH ×3 (06:33→21:29)
[2018-09-24 06:51] LABS: INR 1.99 (0.83-1.09); PROTHROMBIN TIME (PATIENT) 23.6 SEC (9.7-13.0)
[2018-09-24] MEDS: ALBUTEROL SO4 0.083% IH SOL 2.5 MG/3 ML VIAL.NEB. NEB SCH ×4 (08:57→20:50)
[2018-09-24] MEDS: POTASSIUM CHLORIDE TABS 20 MEQ TABLET.ER (FP) PO SCH (10:12)
[2018-09-24] MEDS: DEXAMETHASONE LIQUID 0.5 MG/5 ML 240 ML BULK BOTTLE NR SCH ×4 (10:12→23:08)
[2018-09-24] MEDS: levETIRAcetam 500 MG TABLET (FP) PO SCH ×2 (10:13→21:29)
[2018-09-24] MEDS: JAKAFI 5 MG PO SCH ×2 (10:18→21:30)
[2018-09-24] MEDS: DOXYCYCLINE INJECTION 100 MG in DEXTROSE 5%-WATER 100 ML IVPB SCH ×2 (10:19→21:30)
[2018-09-24] MEDS: NAPH,MB-DB/K PH,MBDB POWDER PACKET PO SCH ×2 (10:19→21:30)
--- NOTE | 2018-09-24 11:04 | PN ---
Progress Note, Physician History of Present Illness: AWAKE, RESPONSIVE BREATHING NON-LABORED ON VENTIMASK AFEBRILE WBC WNL BC (-) - Current Medication List Current Medications: Active Medications Acetaminophen (Tylenol -) 650 mg PO Q6H PRN PRN Reason: PAIN LEVEL 7 - 10 Last Admin: 09/23/18 03:41 Dose: 650 mg Albuterol Sulfate (Ventolin 0.083% Nebulizer Soln -) 1 amp NEB RQID [facility] Last Admin: 09/24/18 08:57 Dose: 1 amp Dexamethasone (Decadron Liquid -) 1 mg NR QID [facility] Last Admin: 09/24/18 10:12 Dose: 1 mg Gabapentin (Neurontin Oral Liquid -) 250 mg PO TID [facility] Last Admin: 09/24/18 06:33 Dose: 250 mg Cefepime HCl 2 gm/ Dextrose 100 mls @ 200 mls/hr IVPB Q8H-IV [facility]; Protocol Last Admin: 09/24/18 10:13 Dose: 200 mls/hr Doxycycline Hyclate 100 mg/ (Dextrose) 100 mls @ 50 mls/hr IVPB BID [facility] Last Admin: 09/24/18 10:19 Dose: 50 mls/hr Levetiracetam (Keppra -) 500 mg PO BID [facility] Last Admin: 09/24/18 10:13 Dose: 500 mg Loperamide HCl (Imodium -) 2 mg PO DAILY PRN PRN Reason: DIARRHEA Metoprolol Tartrate (Lopressor -) 25 mg PO BID [facility] Last Admin: 09/21/18 20:59 Dose: Not Given Nitroglycerin (Nitrostat -) 0.4 mg SL Q5M PRN PRN Reason: FOR CHEST PAIN Patient's Own Med ( (Jakafi 5mg)) 1 each PO BID [facility] Last Admin: 09/24/18 10:18 Dose: 1 each Potassium Chloride (K-Dur -) 20 meq PO DAILY [facility] Last Admin: 09/24/18 10:12 Dose: 20 meq Potassium Phos/Sodium Phos (Phos-Nak Packet -) 1 packet PO BID [facility] Last Admin: 09/24/18 10:19 Dose: 1 packet Warfarin Sodium (Coumadin -) 5 mg PO DAILY@1800 [facility] Last Admin: 09/23/18 17:37 Dose: 5 mg - Objective Vital Signs: Vital Signs Temperature 99.4 F 09/24/18 06:00 Pulse Rate 118 H 09/24/18 06:00 Respiratory Rate 25 H 09/24/18 09:00 Blood Pressure 107/77 09/24/18 06:00 O2 Sat by Pulse Oximetry (%) 97 09/24/18 09:00 Constitutional: Yes: No Distress, Thin Eyes: Yes: Conjunctiva Clear Cardiovascular: Yes: Regular Rate and Rhythm, S1, S2 Respiratory: Yes: Diminished Gastrointestinal: Yes: Normal Bowel Sounds, Soft. No: Tenderness Labs: CBC, BMP 09/23/18 05:30 09/23/18 05:30 INR, PTT INR 1.99 (0.83-1.09) H 09/24/18 05:30 Assessment/Plan RLL PNEUMONIA RESP INSUFFICIENCY NHL CONTINUE EMPIRIC CEFEPIME/ DOXYCYCLINE HOLD VANCOMYCIN CHECK RANDOM LEVEL AM
[2018-09-24] MEDS: VANCOMYCIN 1 GM PREMIX - 1 GM/200 ML BAG IVPB SCH (11:30)
--- NOTE | 2018-09-24 12:36 | PN ---
Progress Note, Physician - Current Medication List Current Medications: Active Medications Acetaminophen (Tylenol -) 650 mg PO Q6H PRN PRN Reason: PAIN LEVEL 7 - 10 Last Admin: 09/23/18 03:41 Dose: 650 mg Albuterol Sulfate (Ventolin 0.083% Nebulizer Soln -) 1 amp NEB RQID [facility] Last Admin: 09/24/18 12:05 Dose: 1 amp Dexamethasone (Decadron Liquid -) 1 mg NR QID [facility] Last Admin: 09/24/18 10:12 Dose: 1 mg Gabapentin (Neurontin Oral Liquid -) 250 mg PO TID [facility] Last Admin: 09/24/18 06:33 Dose: 250 mg Cefepime HCl 2 gm/ Dextrose 100 mls @ 200 mls/hr IVPB Q8H-IV [facility]; Protocol Last Admin: 09/24/18 10:13 Dose: 200 mls/hr Doxycycline Hyclate 100 mg/ (Dextrose) 100 mls @ 50 mls/hr IVPB BID [facility] Last Admin: 09/24/18 10:19 Dose: 50 mls/hr Levetiracetam (Keppra -) 500 mg PO BID [facility] Last Admin: 09/24/18 10:13 Dose: 500 mg Loperamide HCl (Imodium -) 2 mg PO DAILY PRN PRN Reason: DIARRHEA Metoprolol Tartrate (Lopressor -) 25 mg PO BID [facility] Last Admin: 09/21/18 20:59 Dose: Not Given Nitroglycerin (Nitrostat -) 0.4 mg SL Q5M PRN PRN Reason: FOR CHEST PAIN Patient's Own Med ( (Jakafi 5mg)) 1 each PO BID [facility] Last Admin: 09/24/18 10:18 Dose: 1 each Potassium Chloride (K-Dur -) 20 meq PO DAILY [facility] Last Admin: 09/24/18 10:12 Dose: 20 meq Potassium Phos/Sodium Phos (Phos-Nak Packet -) 1 packet PO BID [facility] Last Admin: 09/24/18 10:19 Dose: 1 packet Warfarin Sodium (Coumadin -) 5 mg PO DAILY@1800 [facility] Last Admin: 09/23/18 17:37 Dose: 5 mg - Objective Vital Signs: Vital Signs Temperature 98.8 F 09/24/18 10:00 Pulse Rate 125 H 09/24/18 10:00 Respiratory Rate 28 H 09/24/18 10:00 Blood Pressure 99/73 09/24/18 10:00 O2 Sat by Pulse Oximetry (%) 98 09/24/18 12:05 Cardiovascular: Yes: Regular Rate and Rhythm Respiratory: Yes: Diminished, On Venti-Mask Gastrointestinal: Yes: Normal Bowel Sounds, Soft Labs: CBC, BMP 09/23/18 05:30 09/23/18 05:30 INR, PTT INR 1.99 (0.83-1.09) H 09/24/18 05:30 Problem List - Problems (1) Acute hypoxemic respiratory failure Assessment/Plan: -pulm consult -continue with BiPap -bronchodilators -keep SpO2 >90% -WBC 11.3 -ID consult placed -received IV vancomycin and zosyn in ER -afebrile -monitor WBC for downtrend Code(s): J96.01 - ACUTE RESPIRATORY FAILURE WITH HYPOXIA (2) Hypokalemia Assessment/Plan: - -K+ 2.9 --received KCl -monitor electrolytes daily -replete as needed -Mg 1.7--received Magnesium 2gIVPB x 1 dose Code(s): E87.6 - HYPOKALEMIA (3) Pneumonia Assessment/Plan: as above Code(s): J18.9 - PNEUMONIA, UNSPECIFIED ORGANISM (4) Anticoagulant long-term use Assessment/Plan: Hg 10.6 -monitor Hg daily -transfuse if Hg <8.0 -continue with Coumdain -therapeutic goal INR 2-3 -daily INR monitoring Code(s): Z79.01 - REINFORCING [employer]EL [employer]ER (CURRENT) USE OF ANTICOAGULANTS (5) Hodgkin lymphoma Assessment/Plan: -continue Jakafi -hematology consult Code(s): C81.90 - HODGKIN LYMPHOMA, UNSPECIFIED, UNSPECIFIED SITE
[2018-09-24] MEDS: WARFARIN NA 5 MG TABLET (UD) PO SCH (17:56)
--- NOTE | 2018-09-24 18:08 | PN ---
Progress Note (short form) - Note Progress Note: PULM/CCM Pt seen and examined in the ICU. Pt is CA+OX3 but hypoxia persists w/ Pt bouncing from face mask oxygen --> Bi-Level support prn. Pt is tearful. Pt states that she is tired of being sick. Pt states that if she had known that she would end up in this condition that she would never have agreed to SCT @ [facility]. Active Medications Acetaminophen (Tylenol -) 650 mg PO Q6H PRN PRN Reason: PAIN LEVEL 7 - 10 Last Admin: 09/23/18 03:41 Dose: 650 mg Albuterol Sulfate (Ventolin 0.083% Nebulizer Soln -) 1 amp NEB RQID [facility] Last Admin: 09/24/18 15:00 Dose: 1 amp Dexamethasone (Decadron Liquid -) 1 mg NR QID [facility] Last Admin: 09/24/18 16:06 Dose: 1 mg Gabapentin (Neurontin Oral Liquid -) 250 mg PO TID [facility] Last Admin: 09/24/18 14:08 Dose: 250 mg Cefepime HCl 2 gm/ Dextrose 100 mls @ 200 mls/hr IVPB Q8H-IV [facility]; Protocol Last Admin: 09/24/18 17:56 Dose: 200 mls/hr Doxycycline Hyclate 100 mg/ (Dextrose) 100 mls @ 50 mls/hr IVPB BID [facility] Last Admin: 09/24/18 10:19 Dose: 50 mls/hr Levetiracetam (Keppra -) 500 mg PO BID [facility] Last Admin: 09/24/18 10:13 Dose: 500 mg Loperamide HCl (Imodium -) 2 mg PO DAILY PRN PRN Reason: DIARRHEA Metoprolol Tartrate (Lopressor -) 25 mg PO BID [facility] Last Admin: 09/21/18 20:59 Dose: Not Given Nitroglycerin (Nitrostat -) 0.4 mg SL Q5M PRN PRN Reason: FOR CHEST PAIN Patient's Own Med ( (Jakafi 5mg)) 1 each PO BID [facility] Last Admin: 09/24/18 10:18 Dose: 1 each Potassium Chloride (K-Dur -) 20 meq PO DAILY [facility] Last Admin: 09/24/18 10:12 Dose: 20 meq Potassium Phos/Sodium Phos (Phos-Nak Packet -) 1 packet PO BID [facility] Last Admin: 09/24/18 10:19 Dose: 1 packet Warfarin Sodium (Coumadin -) 5 mg PO DAILY@1800 [facility] Last Admin: 09/24/18 17:56 Dose: 5 mg Vital Signs Period Temp Pulse Resp BP Sys/Nichols Pulse Ox Last 24 Hr 98.8 F-99.6 F 109-133 22-33 95-107/68-84 96-100 Intake & Output 09/21/18 09/22/18 09/23/18 09/24/18 23:59 23:59 23:59 23:59 Intake Total 250 1950 350 150 Balance 250 1950 350 150 Weight 63.503 kg 63.503 kg GEN: Middle aged woman, CA+OX3, ill, wasted CV: nml S1, S2, RR, unable to appreciate any G/M/R PULM: decreased breath sounds at the bases otherwise CTAB ABD: + BS, S/S N/T N/D X4Q EXT: + Pulses, WWP X4, no edema CBC, BMP 09/23/18 05:30 09/23/18 05:30 INR, PTT INR 1.99 (0.83-1.09) H 09/24/18 05:30 Microbiology 09/21/18 13:06 Blood - Axel Cath Blood Culture - Preliminary NO GROWTH OBTAINED AFTER 72 HOURS, INCUBATION TO CONTINUE FOR 2 DAYS. 09/21/18 13:05 Blood - Axel Cath Blood Culture - Preliminary NO GROWTH OBTAINED AFTER 72 HOURS, INCUBATION TO CONTINUE FOR 2 DAYS. 09/23/18 00:00 Sputum - Expectorated Gram Stain - Final 09/23/18 00:00 Sputum - Expectorated Sputum Culture - Preliminary NORMAL RESPIRATORY [facility] CXR 5: R ACW Medical Port, bibasilar atelectasis +/- infiltrates R > L (My Read). ASSESS: Acute on Chronic Hypoxic Respiratory Failure Pneumonia Atelectasis Hodgkin's Lymphoma s/p Stem Cell Transplant h/o CVA Seizure Disorder h/o DVT PLAN: - NIPPV as needed to assist in work of breathing - O2 to keep Spo2 >90% - Inhaled bronchodilators - Incentive spirometry - Antibiotics per ID - f/u cultures - PO as tolerated - Replete Lytes prn - Continue anticoagulation - Trial of Gabapentin - Transfer to 4W / 4S monitoring [facility] ICU PULM/CCM [id number]
[2018-09-24] MEDS ORDERED: INSULIN (NOVOLOG MIX 70/30) 100 UNITS/ML MDV SQ ONE (21:25)
[2018-09-25] MEDS: CEFEPIME 2 GM in DEXTROSE 5%-WATER 100 ML IVPB SCH ×3 (02:59→17:56)
[2018-09-25] MEDS: GABAPENTIN 250 MG/5 ML ORAL SOLUTION, 470 ML BOTTLE PO SCH ×3 (05:48→21:45)
[2018-09-25 05:59] LABS: BASO % 0.7 % (0-2.0); HEMATOCRIT 27.1 % (32.4-45.2); HEMOGLOBIN 8.9 GM/dL (10.7-15.3); LYMPH % 17.5 % (8-40); MCH 26.9 pg (25.7-33.7); MCHC 32.8 g/dl (32.0-36.0); MEAN CELL VOLUME 82.1 fl (80-96); MEAN PLT VOLUME 7.7 fl (7.5-11.1); MONO % 19.2 % (3.8-10.2); NEUT % 60.6 % (42.8-82.8); PLATELET COUNT 402 K/MM3 (134-434); RDW 21.2 % (11.6-15.6); WHITE BLOOD COUNT 4.5 K/mm3 (4.0-10.0)
[2018-09-25 06:21] LABS: INR 2.01 (0.83-1.09); PROTHROMBIN TIME (PATIENT) 23.9 SEC (9.7-13.0)
[2018-09-25 06:48] LABS: ALBUMIN 2.5 g/dl (3.4-5.0); ALK PHOS 332 U/L (45-117); ANION GAP 7 MMOL/L (8-16); BILIRUBIN,TOTAL 0.4 mg/dL (0.2-1); BLOOD UREA NITROGEN 11 mg/dL (7-18); CALCIUM 8.3 mg/dL (8.5-10.1); CHLORIDE 107 mmol/L (98-107); CO2 27 mmol/L (21-32); GLUCOSE,RANDOM 91 mg/dL (74-106); POTASSIUM 3.8 mmol/L (3.5-5.1); SGOT/AST 59 U/L (15-37); SGPT/ALT 36 U/L (13-61); SODIUM 140 mmol/L (136-145); TOT PROT 5.3 g/dl (6.4-8.2)
[2018-09-25 06:50] LABS: CREATININE < 0.1 mg/dL (0.55-1.3)
[2018-09-25] MEDS: ACETAMINOPHEN 325 MG TABLET (FP) PO PRN (07:45)
[2018-09-25] MEDS: ALBUTEROL SO4 0.083% IH SOL 2.5 MG/3 ML VIAL.NEB. NEB SCH ×4 (08:30→20:31)
[2018-09-25] MEDS: POTASSIUM CHLORIDE TABS 20 MEQ TABLET.ER (FP) PO SCH (10:15)
[2018-09-25] MEDS: levETIRAcetam 500 MG TABLET (FP) PO SCH ×2 (10:15→21:44)
[2018-09-25] MEDS: NAPH,MB-DB/K PH,MBDB POWDER PACKET PO SCH ×2 (10:16→21:44)
[2018-09-25] MEDS: DEXAMETHASONE LIQUID 0.5 MG/5 ML 240 ML BULK BOTTLE NR SCH ×4 (10:16→21:48)
[2018-09-25] MEDS: JAKAFI 5 MG PO SCH ×2 (10:18→21:46)
[2018-09-25 11:12] LABS: ANISOCYTOSIS 1+; MACROCYTOSIS 1+; PLATELET ESTIMATE NORMAL; TARGET CELLS 1+
[2018-09-25] MEDS: DOXYCYCLINE INJECTION 100 MG in DEXTROSE 5%-WATER 100 ML IVPB SCH ×2 (11:48→21:59)
--- NOTE | 2018-09-25 12:03 | PN ---
Progress Note, Physician History of Present Illness: AWAKE, RESPONSIVE BREATHING NON-LABORED ON VENTIMASK SHAINA GRADE FEVER WBC WNL BC (-) SPUTUM NORMAL [facility] - Current Medication List Current Medications: Active Medications Acetaminophen (Tylenol -) 650 mg PO Q6H PRN PRN Reason: PAIN LEVEL 7 - 10 Last Admin: 09/25/18 07:45 Dose: 650 mg Albuterol Sulfate (Ventolin 0.083% Nebulizer Soln -) 1 amp NEB RQID [facility] Last Admin: 09/25/18 11:29 Dose: 1 amp Dexamethasone (Decadron Liquid -) 1 mg NR QID [facility] Last Admin: 09/25/18 10:16 Dose: 1 mg Gabapentin (Neurontin Oral Liquid -) 250 mg PO TID [facility] Last Admin: 09/25/18 05:48 Dose: 250 mg Cefepime HCl 2 gm/ Dextrose 100 mls @ 200 mls/hr IVPB Q8H-IV [facility]; Protocol Last Admin: 09/25/18 10:15 Dose: 200 mls/hr Doxycycline Hyclate 100 mg/ (Dextrose) 100 mls @ 50 mls/hr IVPB BID [facility] Last Admin: 09/25/18 11:48 Dose: 50 mls/hr Levetiracetam (Keppra -) 500 mg PO BID [facility] Last Admin: 09/25/18 10:15 Dose: 500 mg Loperamide HCl (Imodium -) 2 mg PO DAILY PRN PRN Reason: DIARRHEA Metoprolol Tartrate (Lopressor -) 25 mg PO BID [facility] Last Admin: 09/21/18 20:59 Dose: Not Given Nitroglycerin (Nitrostat -) 0.4 mg SL Q5M PRN PRN Reason: FOR CHEST PAIN Patient's Own Med ( (Jakafi 5mg)) 1 each PO BID [facility] Last Admin: 09/25/18 10:18 Dose: 1 each Potassium Chloride (K-Dur -) 20 meq PO DAILY [facility] Last Admin: 09/25/18 10:15 Dose: 20 meq Potassium Phos/Sodium Phos (Phos-Nak Packet -) 1 packet PO BID [facility] Last Admin: 09/25/18 10:16 Dose: 1 packet Warfarin Sodium (Coumadin -) 5 mg PO DAILY@1800 [facility] Last Admin: 09/24/18 17:56 Dose: 5 mg - Objective Vital Signs: Vital Signs Temperature 99.2 F 09/25/18 08:00 Pulse Rate 108 H 09/25/18 08:00 Respiratory Rate 23 H 09/25/18 08:00 Blood Pressure 110/82 09/25/18 08:00 O2 Sat by Pulse Oximetry (%) 99 09/25/18 11:29 Constitutional: Yes: No Distress Eyes: Yes: Conjunctiva Clear Cardiovascular: Yes: Regular Rate and Rhythm, S1, S2 Respiratory: Yes: Diminished Gastrointestinal: Yes: Normal Bowel Sounds, Soft. No: Tenderness Labs: CBC, BMP 09/25/18 05:30 09/25/18 05:30 INR, PTT INR 2.01 (0.83-1.09) H 09/25/18 05:30 Assessment/Plan RLL PNEUMONIA RESP INSUFFICIENCY [facility] CONTINUE EMPIRIC CEFEPIME/ DOXYCYCLINE RESUME VANCOMYCIN
[2018-09-25] MEDS ORDERED: VANCOMYCIN 1 GM PREMIX - 1 GM/200 ML BAG IVPB SCH (12:15)
--- NOTE | 2018-09-25 13:09 | PN ---
Progress Note (short form) - Note Progress Note: PULM/CCM Pt seen and examined in the ICU. Pt is CA+OX3. More comfortable now for longer periods of time off the Bi-Level. Active Medications Acetaminophen (Tylenol -) 650 mg PO Q6H PRN PRN Reason: PAIN LEVEL 7 - 10 Last Admin: 09/25/18 07:45 Dose: 650 mg Albuterol Sulfate (Ventolin 0.083% Nebulizer Soln -) 1 amp NEB RQID [facility] Last Admin: 09/25/18 11:29 Dose: 1 amp Dexamethasone (Decadron Liquid -) 1 mg NR QID [facility] Last Admin: 09/25/18 10:16 Dose: 1 mg Gabapentin (Neurontin Oral Liquid -) 250 mg PO TID [facility] Last Admin: 09/25/18 05:48 Dose: 250 mg Cefepime HCl 2 gm/ Dextrose 100 mls @ 200 mls/hr IVPB Q8H-IV [facility]; Protocol Last Admin: 09/25/18 10:15 Dose: 200 mls/hr Doxycycline Hyclate 100 mg/ (Dextrose) 100 mls @ 50 mls/hr IVPB BID [facility] Last Admin: 09/25/18 11:48 Dose: 50 mls/hr Vancomycin HCl (Vancomycin 1 Gm Premix -) 1 gm in 200 mls @ 133.333 mls/hr IVPB Q24H [facility]; Protocol Last Admin: 09/25/18 12:28 Dose: 133.333 mls/hr Levetiracetam (Keppra -) 500 mg PO BID [facility] Last Admin: 09/25/18 10:15 Dose: 500 mg Loperamide HCl (Imodium -) 2 mg PO DAILY PRN PRN Reason: DIARRHEA Metoprolol Tartrate (Lopressor -) 25 mg PO BID [facility] Last Admin: 09/21/18 20:59 Dose: Not Given Nitroglycerin (Nitrostat -) 0.4 mg SL Q5M PRN PRN Reason: FOR CHEST PAIN Patient's Own Med ( (Jakafi 5mg)) 1 each PO BID [facility] Last Admin: 09/25/18 10:18 Dose: 1 each Potassium Chloride (K-Dur -) 20 meq PO DAILY [facility] Last Admin: 09/25/18 10:15 Dose: 20 meq Potassium Phos/Sodium Phos (Phos-Nak Packet -) 1 packet PO BID [facility] Last Admin: 09/25/18 10:16 Dose: 1 packet Warfarin Sodium (Coumadin -) 5 mg PO DAILY@1800 [facility] Last Admin: 09/24/18 17:56 Dose: 5 mg Vital Signs Period Temp Pulse Resp BP Sys/Nichols Pulse Ox Last 24 Hr 97.7 F-99.7 F 101-175 17-32 89-110/64-82 97-100 Intake & Output 09/22/18 09/23/18 09/24/18 09/25/18 23:59 23:59 23:59 23:59 Intake Total 1950 350 930 Balance 1950 350 930 Weight 63.503 kg GEN: Middle aged woman, CA+OX3, ill, wasted, cachectic CV: nml S1, S2, RR, unable to appreciate any G/M/R PULM: decreased breath sounds at the bases otherwise CTAB ABD: + BS, S/S N/T N/D X4Q EXT: + Pulses, WWP X4, no edema CBC, BMP 09/25/18 05:30 09/25/18 05:30 INR, PTT INR 2.01 (0.83-1.09) H 09/25/18 05:30 Microbiology 09/23/18 00:00 Sputum - Expectorated Gram Stain - Final 09/23/18 00:00 Sputum - Expectorated Sputum Culture - Final [facility]ORMAL RESPIRATORY [facility] 09/21/18 13:06 Blood - Axel Cath Blood Culture - Preliminary NO GROWTH OBTAINED AFTER 72 HOURS, INCUBATION TO CONTINUE FOR 2 DAYS. 09/21/18 13:05 Blood - Axel Cath Blood Culture - Preliminary NO GROWTH OBTAINED AFTER 72 HOURS, INCUBATION TO CONTINUE FOR 2 DAYS. CXR 09/23: R ACW Medical Port, bibasilar atelectasis +/- infiltrates R > L (My Read). ASSESS: Acute on Chronic Hypoxic Respiratory Failure Pneumonia Atelectasis Hodgkin's Lymphoma s/p Stem Cell Transplant h/o CVA Seizure Disorder h/o DVT PLAN: - NIPPV as needed to assist WOB - O2 to keep Spo2 >90% - Inhaled bronchodilators - Incentive spirometry - Antibiotics per ID - f/u cultures - PO as tolerated - Replete Lytes prn - Continue anticoagulation - Transfer to 4W / 4S monitoring [facility] ICU PULM/[facility] [id number]
--- NOTE | 2018-09-25 14:09 | PN ---
Progress Note, Physician - Current Medication List Current Medications: Active Medications Acetaminophen (Tylenol -) 650 mg PO Q6H PRN PRN Reason: PAIN LEVEL 7 - 10 Last Admin: 09/25/18 07:45 Dose: 650 mg Albuterol Sulfate (Ventolin 0.083% Nebulizer Soln -) 1 amp NEB RQID PENDING SALE TO [facility] Last Admin: 09/25/18 11:29 Dose: 1 amp Dexamethasone (Decadron Liquid -) 1 mg NR QID PENDING SALE TO [facility] Last Admin: 09/25/18 10:16 Dose: 1 mg Gabapentin (Neurontin Oral Liquid -) 250 mg PO TID PENDING SALE TO [facility] Last Admin: 09/25/18 05:48 Dose: 250 mg Cefepime HCl 2 gm/ Dextrose 100 mls @ 200 mls/hr IVPB Q8H-IV PENDING SALE TO [facility]; Protocol Last Admin: 09/25/18 10:15 Dose: 200 mls/hr Doxycycline Hyclate 100 mg/ (Dextrose) 100 mls @ 50 mls/hr IVPB BID PENDING SALE TO [facility] Last Admin: 09/25/18 11:48 Dose: 50 mls/hr Vancomycin HCl (Vancomycin 1 Gm Premix -) 1 gm in 200 mls @ 133.333 mls/hr IVPB Q24H PENDING SALE TO [facility]; Protocol Last Admin: 09/25/18 12:28 Dose: 133.333 mls/hr Levetiracetam (Keppra -) 500 mg PO BID PENDING SALE TO [facility] Last Admin: 09/25/18 10:15 Dose: 500 mg Loperamide HCl (Imodium -) 2 mg PO DAILY PRN PRN Reason: DIARRHEA Metoprolol Tartrate (Lopressor -) 25 mg PO BID PENDING SALE TO [facility] Last Admin: 09/21/18 20:59 Dose: Not Given Nitroglycerin (Nitrostat -) 0.4 mg SL Q5M PRN PRN Reason: FOR CHEST PAIN Patient's Own Med ( (Jakafi 5mg)) 1 each PO BID PENDING SALE TO [facility] Last Admin: 09/25/18 10:18 Dose: 1 each Potassium Chloride (K-Dur -) 20 meq PO DAILY PENDING SALE TO [facility] Last Admin: 09/25/18 10:15 Dose: 20 meq Potassium Phos/Sodium Phos (Phos-Nak Packet -) 1 packet PO BID PENDING SALE TO [facility] Last Admin: 09/25/18 10:16 Dose: 1 packet Warfarin Sodium (Coumadin -) 5 mg PO DAILY@1800 PENDING SALE TO [facility] Last Admin: 09/24/18 17:56 Dose: 5 mg - Objective Vital Signs: Vital Signs Temperature 99.0 F 09/25/18 12:00 Pulse Rate 122 H 09/25/18 12:00 Respiratory Rate 17 09/25/18 12:00 Blood Pressure 103/71 09/25/18 12:00 O2 Sat by Pulse Oximetry (%) 99 09/25/18 13:39 Cardiovascular: Yes: Regular Rate and Rhythm Respiratory: Yes: Diminished, On Venti-Mask Gastrointestinal: Yes: Normal Bowel Sounds, Soft Labs: CBC, BMP 09/25/18 05:30 09/25/18 05:30 INR, PTT INR 2.01 (0.83-1.09) H 09/25/18 05:30 Problem List - Problems (1) Acute hypoxemic respiratory failure Assessment/Plan: -pulm consult -continue with BiPap -bronchodilators -keep SpO2 >90% -WBC 11.3 -ID consult placed -received IV vancomycin and zosyn in ER -afebrile -monitor WBC for downtrend Code(s): J96.01 - ACUTE RESPIRATORY FAILURE WITH HYPOXIA (2) Hypokalemia Assessment/Plan: -Improved -K+ 2.9 --received KCl -monitor electrolytes daily -replete as needed -Mg 1.7--received Magnesium 2gIVPB x 1 dose Code(s): E87.6 - HYPOKALEMIA (3) Pneumonia Assessment/Plan: as above Code(s): J18.9 - PNEUMONIA, UNSPECIFIED ORGANISM (4) Anticoagulant long-term use Assessment/Plan: Hg 10.6 -monitor Hg daily -transfuse if Hg <8.0 -continue with Coumdain -therapeutic goal INR 2-3 -daily INR monitoring Code(s): Z79.01 - NURSING HOME (CURRENT) USE OF ANTICOAGULANTS (5) Hodgkin lymphoma Assessment/Plan: -continue Jakafi -hematology consult Code(s): C81.90 - HODGKIN LYMPHOMA, UNSPECIFIED, UNSPECIFIED SITE
[2018-09-25] MEDS ORDERED: PT OWN MED DRAWER 7, Y5N ONE (14:27)
[2018-09-25] MEDS: WARFARIN NA 5 MG TABLET (UD) PO SCH (17:56)
[2018-09-25] MEDS ORDERED: METOPROLOL TARTRATE 5 MG/5 ML VIAL IVPUSH PRN (20:44)
[2018-09-25] MEDS: METOPROLOL TARTRATE 25 MG TABLET (FP) PO SCH (21:45)
[2018-09-26] MEDS: CEFEPIME 2 GM in DEXTROSE 5%-WATER 100 ML IVPB SCH ×2 (03:09→13:55)
[2018-09-26] MEDS: GABAPENTIN 250 MG/5 ML ORAL SOLUTION, 470 ML BOTTLE PO SCH ×3 (05:05→21:45)
[2018-09-26 06:59] LABS: HEMATOCRIT 26.1 % (32.4-45.2); HEMOGLOBIN 8.4 GM/dL (10.7-15.3); MCH 26.4 pg (25.7-33.7); MCHC 32.1 g/dl (32.0-36.0); MEAN CELL VOLUME 82.4 fl (80-96); MEAN PLT VOLUME 7.9 fl (7.5-11.1); PLATELET COUNT 410 K/MM3 (134-434); RBC 3.16 M/mm3 (3.60-5.2); RDW 21.6 % (11.6-15.6); WHITE BLOOD COUNT 3.6 K/mm3 (4.0-10.0)
[2018-09-26 07:34] LABS: MAGNESIUM 1.7 mg/dL (1.8-2.4)
[2018-09-26] MEDS: ALBUTEROL SO4 0.083% IH SOL 2.5 MG/3 ML VIAL.NEB. NEB SCH ×3 (07:55→16:20)
--- NOTE | 2018-09-26 08:56 | PN ---
Progress Note (short form) - Note Progress Note: awake on BIPAP Vital Signs Period Temp Pulse Resp BP Sys/Nichols Pulse Ox Last 24 Hr 97.7 F-99.0 F 71-122 17-30 90-123/61-94 97-100 cor-rrr lungs decreased bs at bases abd soft,nt ext no edema +skin changes 09/26/18 05:30 09/25/18 05:30 Microbiology 09/21/18 13:06 Blood - Axel Cath Blood Culture - Preliminary NO GROWTH OBTAINED AFTER 96 HOURS, INCUBATION TO CONTINUE FOR 1 DAYS. 09/21/18 13:05 Blood - Axel Cath Blood Culture - Preliminary NO GROWTH OBTAINED AFTER 96 HOURS, INCUBATION TO CONTINUE FOR 1 DAYS. 09/23/18 00:00 Sputum - Expectorated Gram Stain - Final 09/23/18 00:00 Sputum - Expectorated Sputum Culture - Final NORMAL RESPIRATORY [facility] a/p acute respiratory failure (hypoxia) Right basilar pneumonia recent admission recent influenza immunocompromised host prolonged qtc d/c vancomycin cefepime/doxycycline repeat cxray d/w ICU resident
--- NOTE | 2018-09-26 09:51 | PN ---
Progress Note, Physician Chief Complaint: Hypoxia Acute Respiratory Failure Pneumonia History of Present Illness: Previous notes and events reviewed awake and alert NAD sts her breathing is improving - Current Medication List Current Medications: Active Medications Acetaminophen (Tylenol -) 650 mg PO Q6H PRN PRN Reason: PAIN LEVEL 7 - 10 Last Admin: 09/25/18 07:45 Dose: 650 mg Albuterol Sulfate (Ventolin 0.083% Nebulizer Soln -) 1 amp NEB RQID [facility] Last Admin: 09/26/18 07:55 Dose: 1 amp Dexamethasone (Decadron Liquid -) 1 mg NR QID [facility] Last Admin: 09/25/18 21:48 Dose: Not Given Gabapentin (Neurontin Oral Liquid -) 250 mg PO TID [facility] Last Admin: 09/26/18 05:05 Dose: 250 mg Cefepime HCl 2 gm/ Dextrose 100 mls @ 200 mls/hr IVPB Q8H-IV [facility]; Protocol Last Admin: 09/26/18 03:09 Dose: 200 mls/hr Doxycycline Hyclate 100 mg/ (Dextrose) 100 mls @ 50 mls/hr IVPB BID [facility] Last Admin: 09/25/18 21:59 Dose: 50 mls/hr Levetiracetam (Keppra -) 500 mg PO BID [facility] Last Admin: 09/25/18 21:44 Dose: 500 mg Loperamide HCl (Imodium -) 2 mg PO DAILY PRN PRN Reason: DIARRHEA Metoprolol Tartrate (Lopressor -) 25 mg PO BID [facility] Last Admin: 09/25/18 21:45 Dose: 25 mg Metoprolol Tartrate (Lopressor Injection -) 5 mg IVPUSH Q4H PRN PRN Reason: HYPERTENSION Nitroglycerin (Nitrostat -) 0.4 mg SL Q5M PRN PRN Reason: FOR CHEST PAIN Patient's Own Med ( (Jakafi 5mg)) 1 each PO BID [facility] Last Admin: 09/25/18 21:46 Dose: 1 each Potassium Chloride (K-Dur -) 20 meq PO DAILY [facility] Last Admin: 09/25/18 10:15 Dose: 20 meq Potassium Phos/Sodium Phos (Phos-Nak Packet -) 1 packet PO BID [facility] Last Admin: 09/25/18 21:44 Dose: 1 packet Warfarin Sodium (Coumadin -) 5 mg PO DAILY@1800 [facility] Last Admin: 09/25/18 17:56 Dose: 5 mg - Objective Vital Signs: Vital Signs Temperature 98.7 F 09/26/18 06:00 Pulse Rate 70 09/26/18 08:00 Respiratory Rate 16 09/26/18 08:00 Blood Pressure 113/64 09/26/18 08:00 O2 Sat by Pulse Oximetry (%) 99 09/26/18 08:50 Constitutional: Yes: No Distress, Calm Eyes: Yes: Conjunctiva Clear HENT: Yes: Atraumatic Cardiovascular: Yes: Regular Rate and Rhythm Respiratory: Yes: Diminished, Other (O2 via NRB mask) Gastrointestinal: Yes: Normal Bowel Sounds, Soft Genitourinary: Yes: Incontinence Musculoskeletal: Yes: Muscle Weakness Extremities: Yes: WNL Edema: No Neurological: Yes: Alert, Oriented Psychiatric: Yes: Alert, Oriented Labs: CBC, BMP 09/26/18 05:30 09/25/18 05:30 INR, PTT INR 2.01 (0.83-1.09) H 09/25/18 05:30 Microbiology 09/21/18 13:06 Blood - Axel Cath Blood Culture - Preliminary NO GROWTH OBTAINED AFTER 96 HOURS, INCUBATION TO CONTINUE FOR 1 DAYS. 09/21/18 13:05 Blood - Axel Cath Blood Culture - Preliminary NO GROWTH OBTAINED AFTER 96 HOURS, INCUBATION TO CONTINUE FOR 1 DAYS. 09/23/18 00:00 Sputum - Expectorated Gram Stain - Final 09/23/18 00:00 Sputum - Expectorated Sputum Culture - Final NORMAL RESPIRATORY [facility] Problem List - Problems (1) Hypokalemia Assessment/Plan: -K+ 3.8 --resolved -monitor electrolytes daily -replete as needed Code(s): E87.6 - HYPOKALEMIA (2) Hypomagnesemia Assessment/Plan: -Mg 1.7 -monitor electrolyte daily -replete as needed Code(s): E83.42 - HYPOMAGNESEMIA (3) Hypoxia Assessment/Plan: -pulm on board -continue with BiPap HS -O2 via NRB mask -bronchodilators -keep SpO2 >90% Code(s): R09.02 - HYPOXEMIA (4) Leukocytosis Assessment/Plan: -WBC 3.6 -ID consult on board -continue with IV cefepime and doxycycline -afebrile Code(s): D72.829 - ELEVATED WHITE BLOOD CELL COUNT, UNSPECIFIED Qualifiers: Leukocytosis type: unspecified Qualified Code(s): D72.829 - Elevated white blood cell count, unspecified (5) Tachycardia Assessment/Plan: -cardiology on board -tele monitoring Code(s): R00.0 - TACHYCARDIA, UNSPECIFIED (6) Acute hypoxemic respiratory failure Assessment/Plan: -pulm on board -continue with BiPap HS -O2 via NRB mask -bronchodilators -keep SpO2 >90% Code(s): J96.01 - ACUTE RESPIRATORY FAILURE WITH HYPOXIA (7) Anemia Assessment/Plan: -Hg 8.4 -monitor Hg daily -transfuse if Hg <8.0 -Hg drop 10.6-8.4 -anemia profile, stool OB Code(s): D64.9 - ANEMIA, UNSPECIFIED (8) Anticoagulant long-term use Assessment/Plan: -continue with Coumdain -therapeutic goal INR 2-3 -daily INR monitoring -INR 2.01 Code(s): Z79.01 - [facility] (CURRENT) USE OF ANTICOAGULANTS (9) Hodgkin lymphoma Assessment/Plan: -continue Jakafi -hematology consult Code(s): C81.90 - HODGKIN LYMPHOMA, UNSPECIFIED, UNSPECIFIED SITE (10) Elevated LFTs Assessment/Plan: -abdominal US -AST 59 and Alk phos 332 -GI consult Code(s): R94.5 - ABNORMAL RESULTS OF LIVER FUNCTION STUDIES Assessment/Plan see problem list dvt ppx
--- NOTE | 2018-09-26 11:01 | CONS ---
DATE OF CONSULTATION: 09/26/2018 PHYSICAL MEDICINE REHABILITATION REFERRING PHYSICIAN: Nikki Bahena MD HISTORY OF PRESENT ILLNESS: The patient is a 38-year-old woman with an extensive past medical history including atrial fibrillation on Coumadin, non-Hodgkin lymphoma status post stem cell transfer and at least 1 CVA possibly multiple CVAs affecting her left, more than right, side, history of seizures who was admitted from the [facility] on September 21 with shortness of breath. Patient was diagnosed with hypokalemia, hypomagnesemia, hypoxia, acute respiratory failure, pneumonia, and was treated with antibiotics as well as electrolyte repletion and continued anticoagulation on Coumadin. Patient feels fairly well but is wondering when the BiPAP or CPAP can be removed. On admission on September 21, her magnesium level was low at 1.7 and remains low as of September 23 at 1.6. Her INR was subtherapeutic at 1.64, potassium level low at 2.9, elevated WBCs 11.3. She had a hemoglobin of 10.6, and platelet count 433. Her BUN was 17, but her creatinine was only 0.2. Last blood work on September 25, WBCs improved to 4.5, hemoglobin stable at 8.9, platelet count 402. GUN 11 but was less than 0.01. INR was therapeutic at 2.01. Albumin low at 2.5. Patient's CO2 was 27. Patient is seen in rehabilitation evaluation. REVIEW OF PAST MEDICAL AND SURGICAL HISTORY: As above, atrial fibrillation, non-Hodgkin lymphoma, status post stem cell transplant in April 2018, CVA or multiple CVAs affecting her left and possibly her right side. SOCIAL HISTORY: Lives with her prior to admission in an apartment but most recently had been in [facility]. Per the patient, she is not a long-term care patient but used a Tomy lift to get out of bed to chair. REVIEW OF SYSTEMS: No headache. No lightheadedness or dizziness. No blurry vision, double vision, or change of vision. She may have difficulty swallowing or chewing. No chest pain or shortness of breath. She has weakness in both upper extremities, the left being weaker than the right. Difficulty moving her elbows in extension and her shoulder bilaterally. She also has weakness in both lower extremities but no complaints of numbness or tingling or joint arthralgias. No neck or back pain. PHYSICAL EXAMINATION: General: Thin, cachectic woman seen lying in bed. She has a CPAP or BiPAP mask on which makes communication difficult, but she is able to respond. She is awake, alert, and cooperative. HEENT: She is normocephalic and atraumatic. Her extraocular muscles appear full. N obvious facial weakness. Neck: Supple. Extremities: Without any pitting edema or calf tenderness. Skin: Without any definite rash or breakdown. Neuromuscular: She is awake, alert, oriented x3. Cranial nerves are difficult to fully assess but no gross abnormalities. She has contractures in both of her elbows as well as her shoulder, right more than left. She lacks quite a bit of extension in both elbows at least 70-80 degrees and has limited flexion, limited strength in both hands to events intern, right is 3+/5, left is 2/5 to 3/5. In the lower extremities, she can move her dorsiflexors, plantarflexors, but has significant proximal weakness in both the hip, girdle, as well as knee extensors. Normal sensation to light touch and pinprick. Symmetric reflex is toes upgoing. OVERALL IMPRESSION: 1. Severe, and possibly irreversible, deficits in mobility activities of daily living, multifactorial. 2. Deconditioning. 3. Acute respiratory failure. 4. Pneumonia. 5. Status post hypokalemia. 6. Hypomagnesemia. 7. History of cerebrovascular accident or multiple cerebrovascular accidents. 8. Contractures, elbows/shoulders. 9. Non-Hodgkin lymphoma status post stem cell transplant. 10. Atrial fibrillation on anticoagulation with Coumadin. Therapeutic INR as of September 25. 11. Seizure disorder. 12. Elevated risk for decubitus ulcerations due to low albumin and immobility. PLAN/SUGGESTION: 1. Physical therapy for range of motion at the bedside. Strengthening as able. 2. When medically stable, would sit up in bed if appropriate. 3. Skin precautions, monitor heel/sacrum, turn patient q.2 hours. 4. Patient is already anticoagulated for atrial fibrillation. No further DVT prophylaxis needed. 5. Follow up with medical care. 6. Return to custodial facility once stabilized for either short-term and/or long-term care. 7. Consider nutritional supplement and consultation with Dietary. 8. Magnesium repletion. Follow up blood work as appropriate. Thank you for this referral. RAS LYNN M.D. ERIK/[id number]
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
--- NOTE | 2018-09-26 12:11 | PN ---
Teaching Attending Note Name of Resident: Betsy Magallon ATTENDING PHYSICIAN STATEMENT I saw and evaluated the patient. I reviewed the resident's note and discussed the case with the resident. I agree with the resident's findings and plan as documented. SUBJECTIVE: Patient seen and examined in the ICU. Currently on 100% NRBM. Reports some mild improvement in her breathing. Intake & Output 09/23/18 09/24/18 09/25/18 09/26/18 23:59 23:59 23:59 23:59 Intake Total 350 930 300 Balance 350 930 300 Last Vital Signs Temp Pulse Resp BP Pulse Ox 97.9 F 87 25 H 98/62 97 09/26/18 10:00 09/26/18 10:00 09/26/18 10:00 09/26/18 10:00 09/26/18 11:46 Active Medications Acetaminophen (Tylenol -) 650 mg PO Q6H PRN PRN Reason: PAIN LEVEL 7 - 10 Last Admin: 09/25/18 07:45 Dose: 650 mg Albuterol Sulfate (Ventolin 0.083% Nebulizer Soln -) 1 amp NEB RQID [facility] Last Admin: 09/26/18 11:39 Dose: 1 amp Dexamethasone (Decadron Liquid -) 1 mg NR QID [facility] Last Admin: 09/25/18 21:48 Dose: Not Given Gabapentin (Neurontin Oral Liquid -) 250 mg PO TID [facility] Last Admin: 09/26/18 05:05 Dose: 250 mg Cefepime HCl 2 gm/ Dextrose 100 mls @ 200 mls/hr IVPB Q8H-IV LANDEN; Protocol Last Admin: 09/26/18 03:09 Dose: 200 mls/hr Doxycycline Hyclate 100 mg/ (Dextrose) 100 mls @ 50 mls/hr IVPB BID [facility] Last Admin: 09/25/18 21:59 Dose: 50 mls/hr Levetiracetam (Keppra -) 500 mg PO BID [facility] Last Admin: 09/25/18 21:44 Dose: 500 mg Loperamide HCl (Imodium -) 2 mg PO DAILY PRN PRN Reason: DIARRHEA Metoprolol Tartrate (Lopressor -) 25 mg PO BID [facility] Last Admin: 09/25/18 21:45 Dose: 25 mg Metoprolol Tartrate (Lopressor Injection -) 5 mg IVPUSH Q4H PRN PRN Reason: HYPERTENSION Nitroglycerin (Nitrostat -) 0.4 mg SL Q5M PRN PRN Reason: FOR CHEST PAIN Patient's Own Med ( (Jakafi 5mg)) 1 each PO BID [facility] Last Admin: 09/25/18 21:46 Dose: 1 each Potassium Chloride (K-Dur -) 20 meq PO DAILY [facility] Last Admin: 09/25/18 10:15 Dose: 20 meq Potassium Phos/Sodium Phos (Phos-Nak Packet -) 1 packet PO BID [facility] Last Admin: 09/25/18 21:44 Dose: 1 packet Warfarin Sodium (Coumadin -) 5 mg PO DAILY@1800 [facility] Last Admin: 09/25/18 17:56 Dose: 5 mg Gen: Awake and alert, mildly tachypneic with speaking Heart: tachycardic, regular Lung: Scattered rhonchi, decreased breath sounds at the bases Abd: soft, nontender Ext: no edema Laboratory Results - last 24 hr 09/26/18 09/26/18 09/26/18 05:30 05:30 05:30 WBC 3.6 L RBC 3.16 L Hgb 8.4 L Hct 26.1 L MCV 82.4 MCH 26.4 MCHC 32.1 RDW 21.6 H Plt Count 410 MPV 7.9 PTT (Actin FS) 42.8 H Phosphorus 3.0 Magnesium 1.7 L ASSESSMENT AND PLAN: Acute on Chronic Hypoxic Respiratory Failure Pneumonia Atelectasis Hodgkin's Lymphoma s/p Stem Cell Transplant h/o CVA Seizure Disorder h/o DVT - Antibiotics per ID - O2 to keep Spo2 >90% - NIPPV as needed to assist in work of breathing - PO as tolerated - Incentive spirometry - Inhaled bronchodilators - Continue anticoagulation - Gabapentin - 4W / 4S monitoring Dr Ramos
[2018-09-26] MEDS: POTASSIUM CHLORIDE TABS 20 MEQ TABLET.ER (FP) PO SCH (12:19)
[2018-09-26] MEDS: DEXAMETHASONE LIQUID 0.5 MG/5 ML 240 ML BULK BOTTLE NR SCH ×4 (12:20→22:05)
[2018-09-26] MEDS ORDERED: PT OWN MED DRAWER 7, Y5N ONE (12:25)
[2018-09-26] MEDS: JAKAFI 5 MG PO SCH (12:27)
[2018-09-26] MEDS: DOXYCYCLINE INJECTION 100 MG in DEXTROSE 5%-WATER 100 ML IVPB SCH ×2 (12:28→23:07)
[2018-09-26] MEDS: NAPH,MB-DB/K PH,MBDB POWDER PACKET PO SCH ×2 (12:28→21:45)
[2018-09-26] MEDS: METOPROLOL TARTRATE 25 MG TABLET (FP) PO SCH (12:28)
[2018-09-26] MEDS: levETIRAcetam 500 MG TABLET (FP) PO SCH ×2 (12:29→21:45)
[2018-09-26] MEDS ORDERED: POTASSIUM CHLORIDE ORAL LIQUID 20 MEQ/15 ML PO ONE (14:00)
--- NOTE | 2018-09-26 14:14 | PN ---
Physical Exam: SUBJECTIVE: Patient seen this morning and distressed because she hasnt received her specific med in two days. Able to take off Bipap and on non rebreather. No acute events overnight. OBJECTIVE: Vital Signs Temperature 97.9 F 09/26/18 10:00 Pulse Rate 95 H 09/26/18 12:00 Respiratory Rate 26 H 09/26/18 12:00 Blood Pressure 107/65 09/26/18 12:00 O2 Sat by Pulse Oximetry (%) 97 09/26/18 11:46 GENERAL: The patient is awake, alert, and fully oriented, in no acute distress. HEAD: Normal with no signs of trauma. EYES: PERRL, extraocular movements intact NECK: Trachea midline, full range of motion, supple. LUNGS: Breath sounds equal, clear to auscultation bilaterally, no wheezes, no crackles, no accessory muscle use. HEART: Regular rate and rhythm, S1, S2 without murmur, rub or gallop. ABDOMEN: Soft, nontender, nondistended, normoactive bowel sounds EXTREMITIES: 2+ pulses, warm, well-perfused, no edema. SKIN: Warm, dry, normal turgor, no rashes or lesions noted CBCD WBC 3.6 K/mm3 (4.0-10.0) L 09/26/18 05:30 RBC 3.16 M/mm3 (3.60-5.2) L 09/26/18 05:30 Hgb 8.4 GM/dL (10.7-15.3) L 09/26/18 05:30 Hct 26.1 % (32.4-45.2) L 09/26/18 05:30 MCV 82.4 fl (80-96) 09/26/18 05:30 MCHC 32.1 g/dl (32.0-36.0) 09/26/18 05:30 RDW 21.6 % (11.6-15.6) H 09/26/18 05:30 Plt Count 410 K/MM3 (134-434) 09/26/18 05:30 MPV 7.9 fl (7.5-11.1) 09/26/18 05:30 CMP Sodium 140 mmol/L (136-145) 09/25/18 05:30 Potassium 3.8 mmol/L (3.5-5.1) 09/25/18 05:30 Chloride 107 mmol/L (98-107) 09/25/18 05:30 Carbon Dioxide 27 mmol/L (21-32) 09/25/18 05:30 Anion Gap 7 MMOL/L (8-16) L 09/25/18 05:30 BUN 11 mg/dL (7-18) 09/25/18 05:30 Creatinine < 0.1 mg/dL (0.55-1.3) L 09/25/18 05:30 Creat Clearance w eGFR 875.53 (>60) 09/25/18 05:30 Calcium 8.3 mg/dL (8.5-10.1) L 09/25/18 05:30 Total Bilirubin 0.4 mg/dL (0.2-1) 09/25/18 05:30 AST 59 U/L (15-37) H 09/25/18 05:30 ALT 36 U/L (13-61) 09/25/18 05:30 Alkaline Phosphatase 332 U/L (45-117) H 09/25/18 05:30 Total Protein 5.3 g/dl (6.4-8.2) L 09/25/18 05:30 Albumin 2.5 g/dl (3.4-5.0) L 09/25/18 05:30 Active Medications Acetaminophen (Tylenol -) 650 mg PO Q6H PRN PRN Reason: PAIN LEVEL 7 - 10 Last Admin: 09/25/18 07:45 Dose: 650 mg Albuterol Sulfate (Ventolin 0.083% Nebulizer Soln -) 1 amp NEB RQID [facility] Last Admin: 09/26/18 11:39 Dose: 1 amp Dexamethasone (Decadron Liquid -) 1 mg NR QID [facility] Last Admin: 09/26/18 13:55 Dose: 1 mg Gabapentin (Neurontin Oral Liquid -) 250 mg PO TID [facility] Last Admin: 09/26/18 05:05 Dose: 250 mg Cefepime HCl 2 gm/ Dextrose 100 mls @ 200 mls/hr IVPB Q8H-IV LANDEN; Protocol Last Admin: 09/26/18 13:55 Dose: 200 mls/hr Doxycycline Hyclate 100 mg/ (Dextrose) 100 mls @ 50 mls/hr IVPB BID [facility] Last Admin: 09/26/18 12:28 Dose: 50 mls/hr Levetiracetam (Keppra -) 500 mg PO BID [facility] Last Admin: 09/26/18 12:29 Dose: 500 mg Loperamide HCl (Imodium -) 2 mg PO DAILY PRN PRN Reason: DIARRHEA Metoprolol Tartrate (Lopressor -) 25 mg PO BID [facility] Last Admin: 09/26/18 12:28 Dose: 25 mg Metoprolol Tartrate (Lopressor Injection -) 5 mg IVPUSH Q4H PRN PRN Reason: HYPERTENSION Nitroglycerin (Nitrostat -) 0.4 mg SL Q5M PRN PRN Reason: FOR CHEST PAIN Patient's Own Med ( (Jakafi 5mg)) 1 each PO BID [facility] Last Admin: 09/26/18 12:27 Dose: 1 each Potassium Phos/Sodium Phos (Phos-Nak Packet -) 1 packet PO BID [facility] Last Admin: 09/26/18 12:28 Dose: 1 packet Warfarin Sodium (Coumadin -) 5 mg PO DAILY@1800 [facility] Last Admin: 09/25/18 17:56 Dose: 5 mg ASSESSMENT/PLAN: Patient is a 38 y/o female with a history of afib, hodgkins lymphoma, GVH disease, recent stem cell transplant who is here for PNA. Neuro - A&O x3 Cardio - hx corpulmonale and dyastolic dsfxn - continue warfarin - continue metoprolol 25 BID - vitals stable Pulm - continue home settings of bilevel ventilation - continue nebs and decadron 1 mg qid - NIPPV as needed to assist - continue incentive spirometry GI - LFT's elevated - followed by Dr. Bullock - likely due to congestion and corpulmonale - will f/u labs - f/u abdominal US Nephro - stable Heme - continue warfarin - hx stem cell transplant for hodgkins lymphoma - followed by Dr. Mororw ID - D/C vanco - continue Cefapine and Doxycycline for PNA - CXR unchanged, with infiltrates - f/u with ID for antiboitic length FEN - normal diet Dispo: can be DC to tele Visit type - Emergency Visit Emergency Visit: No - New Patient This patient is new to me today: Yes Date on this admission: 09/26/18 - Critical Care Critical Care patient: Yes Total Critical Care Time (in minutes): 35 Critical Care Statement: The care of this patient involved high complexity decision making to prevent further life threatening deterioration of the patient 's condition and/or to evaluate & treat vital organ system(s) failure or risk of failure.
[2018-09-26] MEDS ORDERED: CEFTRIAXONE 2,000 MG in DEXTROSE 5%-WATER - 50 ML IVPB ONE (15:18)
--- NOTE | 2018-09-26 16:49 | PN ---
Physical Exam: SUBJECTIVE: Patient seen and examined at bedside. Feeling better. OBJECTIVE: Vital Signs Period Temp Pulse Resp BP Sys/Nichols Pulse Ox Last 24 Hr 97.7 F-99.0 F 70-118 16-30 90-123/61-94 97-100 GENERAL: The patient is awake, alert, and fully oriented, in no acute distress. EYES: conjunctiva clear. ENT: Ears normal, nares patent LUNGS: Breath sounds equal, clear to auscultation bilaterally HEART: Regular rate and rhythm, S1, S2 ABDOMEN: Soft, nontender, nondistended EXTREMITIES: no edema. NEUROLOGICAL: Normal speech, gait not observed. SKIN: Warm, dry Laboratory Results - last 24 hr 09/26/18 09/26/18 09/26/18 05:30 05:30 05:30 WBC 3.6 L RBC 3.16 L Hgb 8.4 L Hct 26.1 L MCV 82.4 MCH 26.4 MCHC 32.1 RDW 21.6 H Plt Count 410 MPV 7.9 PTT (Actin FS) 42.8 H Phosphorus 3.0 Magnesium 1.7 L Active Medications Generic Name Dose Route Start Last Admin Trade Name Freq PRN Reason Stop Dose Admin Acetaminophen 650 mg 09/21/18 20:28 09/25/18 07:45 Tylenol - PO 650 mg Q6H PRN Administration PAIN LEVEL 7 - 10 Albuterol Sulfate 1 amp 09/21/18 20:00 09/26/18 11:39 Ventolin 0.083% Nebulizer Soln - NEB 1 amp RQID LANDEN Administration Dexamethasone 1 mg 09/24/18 10:00 09/26/18 13:55 Decadron Liquid - NR 1 mg QID ALNDEN Administration Gabapentin 250 mg 09/21/18 22:00 09/26/18 14:52 Neurontin Oral Liquid - PO 250 mg TID LANDEN Administration Doxycycline Hyclate 100 mg/ 100 mls @ 50 mls/hr 09/21/18 22:00 09/26/18 12:28 Dextrose IVPB 50 mls/hr BID LANDEN Administration Ceftriaxone Sodium 1 gm/ 50 mls @ 100 mls/hr 09/27/18 10:00 Dextrose IVPB DAILY LANDEN Protocol Levetiracetam 500 mg 09/21/18 22:00 09/26/18 12:29 Keppra - PO 500 mg BID LANDEN Administration Loperamide HCl 2 mg 09/22/18 10:00 Imodium - PO DAILY PRN DIARRHEA Metoprolol Tartrate 25 mg 09/21/18 22:00 09/26/18 12:28 Lopressor - PO 25 mg BID LANDEN Administration Metoprolol Tartrate 5 mg 09/25/18 20:44 Lopressor Injection - IVPUSH Q4H PRN HYPERTENSION Nitroglycerin 0.4 mg 09/21/18 16:42 Nitrostat - SL Q5M PRN FOR CHEST PAIN Patient's Own Med ( 1 each 09/22/18 20:15 09/26/18 12:27 Jakafi 5mg) PO 1 each BID LANDEN Administration Potassium Phos/Sodium Phos 1 packet 09/22/18 10:00 09/26/18 12:28 Phos-Nak Packet - PO 1 packet BID LANDEN Administration Warfarin Sodium 5 mg 09/21/18 18:00 09/25/18 17:56 Coumadin - PO 5 mg DAILY@1800 LANDEN Administration ASSESSMENT/PLAN: 38 y/o F w/PMH of afib (on coumadin), 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 Heme consulted for evaluation of GVHD and hodgkins lymphoma. GVHD -c/w jakofi -called placed to Dr. Tello and her service, awaiting call back. (Her primary oncologist) -decadron mouthwash -HL -s/p transplant now complicated by GVHD -called placed to Dr. Tello and her service, awaiting call back. -H/o DVT -c/w coumadin -monitor INR, currently therapeutic -H/o seizures -c/w keppra Visit type - Emergency Visit Emergency Visit: Yes ED Registration Date: 09/21/18 Care time: The patient presented to the Emergency Department on the above date and was hospitalized for further evaluation of their emergent condition. - New Patient This patient is new to me today: Yes Date on this admission: 09/27/18 - Critical Care Critical Care patient: Yes Total Critical Care Time (in minutes): 40 Critical Care Statement: The care of this patient involved high complexity decision making to prevent further life threatening deterioration of the patient 's condition and/or to evaluate & treat vital organ system(s) failure or risk of failure.
[2018-09-26] MEDS: WARFARIN NA 5 MG TABLET (UD) PO SCH (18:09)
[2018-09-26] MEDS ORDERED: NITROGLYCERIN SUBLINGUAL 1/150 0.4 MG TAB SL PRN (20:38)
[2018-09-26] MEDS ORDERED: LOPERAMIDE HCL 2 MG CAPSULE PO PRN (20:38)
[2018-09-26] MEDS ORDERED: METOPROLOL TARTRATE 25 MG TABLET (FP) PO SCH (22:00)
--- NOTE | 2018-09-26 23:15 | PN ---
Teaching Attending Note Name of Resident: Guilherme Mendez ATTENDING PHYSICIAN STATEMENT I saw and evaluated the patient. I reviewed the resident's note and discussed the case with the resident. I agree with the resident's findings and plan as documented. ASSESSMENT AND PLAN: Acute hypoxic respiratory failure H/O lymphoma S/P allogenic SCT GVHD,chronic Pneumonia Seizure disorder H/O DVT Plan: Continuation of Jakofi Antibiotics per ID decadron mouth wash left several messages with primary oncologist at [facility] --to update her about patient status
[2018-09-27] MEDS: ACETAMINOPHEN 325 MG TABLET (FP) PO PRN ×2 (02:10→22:11)
[2018-09-27] MEDS ORDERED: MORPHINE SULFATE 2 MG/ML VIAL IVPUSH ONE (02:24)
[2018-09-27] MEDS ORDERED: MORPHINE SULFATE 2 MG/ML VIAL ONE (02:29)
[2018-09-27] MEDS: GABAPENTIN 250 MG/5 ML ORAL SOLUTION, 470 ML BOTTLE PO SCH ×3 (05:48→22:11)
[2018-09-27 07:20] LABS: HEMATOCRIT 24.8 % (32.4-45.2); MCH 26.6 pg (25.7-33.7); MCHC 32.4 g/dl (32.0-36.0); MEAN CELL VOLUME 82.3 fl (80-96); MEAN PLT VOLUME 7.9 fl (7.5-11.1); PLATELET COUNT 395 K/MM3 (134-434); RBC 3.01 M/mm3 (3.60-5.2); RDW 21.5 % (11.6-15.6); WHITE BLOOD COUNT 4.9 K/mm3 (4.0-10.0)
[2018-09-27 07:28] LABS: INR 3.02 (0.83-1.09)
[2018-09-27 07:30] LABS: ACTIVATED PTT 42.2 SECONDS (25.2-36.5)
[2018-09-27 07:54] LABS: ALBUMIN 2.4 g/dl (3.4-5.0); ALK PHOS 274 U/L (45-117); ANION GAP 5 MMOL/L (8-16); BILIRUBIN,TOTAL 0.3 mg/dL (0.2-1); BLOOD UREA NITROGEN 16 mg/dL (7-18); CALCIUM 8.1 mg/dL (8.5-10.1); CHLORIDE 107 mmol/L (98-107); CO2 29 mmol/L (21-32); CREATININE < 0.2 mg/dL (0.55-1.3); GAMMA GLUTAMYL TRANSPEPTIDASE 407 U/L (5-85); GLUCOSE,RANDOM 78 mg/dL (74-106); MAGNESIUM 1.5 mg/dL (1.8-2.4); POTASSIUM 4.1 mmol/L (3.5-5.1); SGOT/AST 34 U/L (15-37); SGPT/ALT 25 U/L (13-61); SODIUM 141 mmol/L (136-145)
[2018-09-27] MEDS ORDERED: DEXTROSE 5%-WATER - 50 ML IVPB ONE (08:02)
[2018-09-27] MEDS ORDERED: cefTRIAXone SODIUM 1 GM VIAL ONE (08:02)
--- NOTE | 2018-09-27 08:26 | PN ---
Progress Note, Physician - Current Medication List Current Medications: Active Medications Acetaminophen (Tylenol -) 650 mg PO Q6H PRN PRN Reason: PAIN LEVEL 7 - 10 Last Admin: 09/27/18 02:10 Dose: 650 mg Dexamethasone (Decadron Liquid -) 1 mg NR QID [facility] Last Admin: 09/26/18 22:05 Dose: Not Given Gabapentin (Neurontin Oral Liquid -) 250 mg PO TID [facility] Last Admin: 09/27/18 05:48 Dose: 250 mg Ceftriaxone Sodium 1 gm/ (Dextrose) 50 mls @ 100 mls/hr IVPB DAILY [facility]; Protocol Doxycycline Hyclate 100 mg/ (Dextrose) 100 mls @ 50 mls/hr IVPB BID [facility] Last Admin: 09/26/18 23:07 Dose: 50 mls/hr Levetiracetam (Keppra -) 500 mg PO BID [facility] Last Admin: 09/26/18 21:45 Dose: 500 mg Loperamide HCl (Imodium -) 2 mg PO DAILY PRN PRN Reason: DIARRHEA Metoprolol Tartrate (Lopressor Injection -) 5 mg IVPUSH Q4H PRN PRN Reason: HYPERTENSION Metoprolol Tartrate (Lopressor -) 25 mg PO BID [facility] Nitroglycerin (Nitrostat -) 0.4 mg SL Q5M PRN PRN Reason: FOR CHEST PAIN Non-Formulary Medication (Patient's Own Med) 1 each PO DAILY [facility] Potassium Phos/Sodium Phos (Phos-Nak Packet -) 1 packet PO BID [facility] Last Admin: 09/26/18 21:45 Dose: 1 packet Warfarin Sodium (Coumadin -) 5 mg PO DAILY@1800 [facility] - Objective Vital Signs: Vital Signs Temperature 97.8 F 09/27/18 05:56 Pulse Rate 78 09/27/18 05:56 Respiratory Rate 20 09/27/18 05:56 Blood Pressure 106/64 09/27/18 05:56 O2 Sat by Pulse Oximetry (%) 98 09/26/18 21:00 Cardiovascular: Yes: S1, S2 Respiratory: Yes: On Venti-Mask Gastrointestinal: Yes: Normal Bowel Sounds, Soft Labs: CBC, BMP 09/27/18 06:00 09/27/18 06:00 INR, PTT INR 3.02 (0.83-1.09) H 09/27/18 06:00 Problem List - Problems (1) Acute hypoxemic respiratory failure Code(s): J96.01 - ACUTE RESPIRATORY FAILURE WITH HYPOXIA (2) Hypokalemia Code(s): E87.6 - HYPOKALEMIA (3) Pneumonia Code(s): J18.9 - PNEUMONIA, UNSPECIFIED ORGANISM (4) Anticoagulant long-term use Code(s): Z79.01 - JAIL (CURRENT) USE OF ANTICOAGULANTS (5) Hodgkin lymphoma Code(s): C81.90 - HODGKIN LYMPHOMA, UNSPECIFIED, UNSPECIFIED SITE Assessment/Plan - Problems (1) Hypokalemia Assessment/Plan: -K+ 3.8 --resolved -monitor electrolytes daily -replete as needed Code(s): E87.6 - HYPOKALEMIA (2) Hypomagnesemia Assessment/Plan: -Mg 1.7 -monitor electrolyte daily -replete as needed Code(s): E83.42 - HYPOMAGNESEMIA (3) GVHD, Assessment/Plan: -per hem -neuro (4) Leukocytosis Assessment/Plan: -WBC 3.6 -ID consult on board -continue with IV cefepime and doxycycline -afebrile Code(s): D72.829 - ELEVATED WHITE BLOOD CELL COUNT, UNSPECIFIED Qualifiers: Leukocytosis type: unspecified Qualified Code(s): D72.829 - Elevated white blood cell count, unspecified (5) Tachycardia Assessment/Plan: -cardiology on board -tele monitoring Code(s): R00.0 - TACHYCARDIA, UNSPECIFIED (6) Acute hypoxemic respiratory failure Assessment/Plan: -pulm on board -continue with BiPap HS -O2 via NRB mask -bronchodilators -keep SpO2 >90% Code(s): J96.01 - ACUTE RESPIRATORY FAILURE WITH HYPOXIA (7) Anemia Assessment/Plan: -Hg 8.4 -monitor Hg daily -transfuse if Hg <8.0 -Hg drop 10.6-8.4 -anemia profile, stool OB Code(s): D64.9 - ANEMIA, UNSPECIFIED (8) Anticoagulant long-term use Assessment/Plan: -continue with Coumdain -therapeutic goal INR 2-3 -daily INR monitoring -INR 2.01 Code(s): Z79.01 - PHYSICAL SECURITY SPECIALIST (CURRENT) USE OF ANTICOAGULANTS (9) Hodgkin lymphoma Assessment/Plan: -continue Jakafi -hematology consult Code(s): C81.90 - HODGKIN LYMPHOMA, UNSPECIFIED, UNSPECIFIED SITE (10) Elevated LFTs Assessment/Plan: -abdominal US -AST 59 and Alk phos 332 -GI consult Code(s): R94.5 - ABNORMAL RESULTS OF LIVER FUNCTION STUDIES
[2018-09-27] MEDS: levETIRAcetam 500 MG TABLET (FP) PO SCH ×2 (10:18→22:11)
[2018-09-27] MEDS: DEXAMETHASONE LIQUID 0.5 MG/5 ML 240 ML BULK BOTTLE NR SCH ×4 (10:18→22:11)
[2018-09-27] MEDS: NAPH,MB-DB/K PH,MBDB POWDER PACKET PO SCH ×2 (10:18→22:11)
[2018-09-27] MEDS: CEFTRIAXONE 1 GM in DEXTROSE 5%-WATER - 50 ML IVPB SCH (10:21)
[2018-09-27] MEDS ORDERED: PT OWN MED DRAWER 7, Y5N ONE ×4 (11:14→21:58)
--- NOTE | 2018-09-27 11:20 | PN ---
Progress Note, Physician History of Present Illness: PULMONARY ALERT,FEELING BETTER,LESS DYSPNEIC ON 70% NRM - Current Medication List Current Medications: Active Medications Acetaminophen (Tylenol -) 650 mg PO Q6H PRN PRN Reason: PAIN LEVEL 7 - 10 Last Admin: 09/27/18 02:10 Dose: 650 mg Dexamethasone (Decadron Liquid -) 1 mg NR QID [facility] Last Admin: 09/27/18 10:18 Dose: 1 mg Gabapentin (Neurontin Oral Liquid -) 250 mg PO TID [facility] Last Admin: 09/27/18 05:48 Dose: 250 mg Ceftriaxone Sodium 1 gm/ (Dextrose) 50 mls @ 100 mls/hr IVPB DAILY [facility]; Protocol Last Admin: 09/27/18 10:21 Dose: 100 mls/hr Doxycycline Hyclate 100 mg/ (Dextrose) 100 mls @ 50 mls/hr IVPB BID [facility] Last Admin: 09/26/18 23:07 Dose: 50 mls/hr Levetiracetam (Keppra -) 500 mg PO BID [facility] Last Admin: 09/27/18 10:18 Dose: 500 mg Loperamide HCl (Imodium -) 2 mg PO DAILY PRN PRN Reason: DIARRHEA Metoprolol Tartrate (Lopressor Injection -) 5 mg IVPUSH Q4H PRN PRN Reason: HYPERTENSION Metoprolol Tartrate (Lopressor -) 25 mg PO BID [facility] Nitroglycerin (Nitrostat -) 0.4 mg SL Q5M PRN PRN Reason: FOR CHEST PAIN Non-Formulary Medication (Patient's Own Med) 1 each PO DAILY [facility] Potassium Phos/Sodium Phos (Phos-Nak Packet -) 1 packet PO BID [facility] Last Admin: 09/27/18 10:18 Dose: 1 packet Warfarin Sodium (Coumadin -) 5 mg PO DAILY@1800 [facility] - Objective Vital Signs: Vital Signs Temperature 97.8 F 09/27/18 05:56 Pulse Rate 78 09/27/18 05:56 Respiratory Rate 20 09/27/18 05:56 Blood Pressure 106/64 09/27/18 05:56 O2 Sat by Pulse Oximetry (%) 99 09/27/18 08:00 Constitutional: Yes: Well Nourished, Calm Eyes: Yes: WNL HENT: Yes: WNL Neck: Yes: WNL Cardiovascular: Yes: Regular Rate and Rhythm, S1, S2 Respiratory: Yes: Rhonchi (FEW SCATTERED RHONCHI) Gastrointestinal: Yes: Normal Bowel Sounds, Soft Extremities: Yes: WNL Edema: No Labs: CBC, BMP 09/27/18 06:00 09/27/18 06:00 INR, PTT INR 3.02 (0.83-1.09) H 09/27/18 06:00 Assessment/Plan ASSESSMENT AND PLAN: Acute on Chronic Hypoxic Respiratory Failure clinically improving Pneumonia improving Atelectasis improving Hodgkin's Lymphoma s/p Stem Cell Transplant h/o CVA Seizure Disorder h/o DVT - Antibiotics per ID - O2 to keep Spo2 >90% - NIPPV as needed to assist in work of breathing - PO as tolerated - Incentive spirometry - Inhaled bronchodilators - Canticoagulation - Gabapentin DR WILSON
--- NOTE | 2018-09-27 11:47 | CONSULT ---
Consult - text type - Consultation Consultation Note: NEUROLOGY CONSULT APPRECIATED: Events reviewed and discussed with RN and ADAM Huntley. Patient examined with her stepfather at the bedside. This 38 yo RH F from [facility] with pmhx HTN, Afib, [place] Lymphoma s/p Stem cell transplant (SCT) While at [facility] in , she suffered R CVA 05/08 and seizures and resiodual left hemiparesis. Maintained on gabapentin, dexamethasone, albuterol, nitro, warfarin, levetiracetam 500 BID, metoprolol 25 BID, Jakafi, oxycodone. Initially admitted with hypoxemia and possible lung infitrate, tx with BIPAP, hydration and empiric antibiotics. Reports progressive gait decline, now essentially bedbound, since SCT 4 years ago, with further deterioration after recent stroke. Notes hx of migraines "for as long as I can remember" now less frequent in nature. Reports mostly nocturnal "numbness" in toes" and "aching" pains in neck and back that awaken her from sleep. Reports that pain medication (oxycodone, dose uncertain) is somewhat helpful. CT of C spine ordered, however pt declines any neuroimaging (CT or MRI) due to claustrophobia. H/H 8/24.8 MCV 82.3 INR= 3.01 MARITA: 100-120/60. Cor reg. No bruit. Neck supple. Neg SLR. Early contractures of R elbow, Right shoulder and both knees (in extension). G-Tube in place. NEURO: Awake, alert. Oriented x 3. CNII-CNXII: EOM intact with full hardin appreciated. No facial. Gag ok. Motor: 4-/5 L grasp. Mild Spastic hemiparesis on L. Decreased MELINDA L > R. Cannot elevate either leg against gravity but ankle Dorsiflexion 4+/5. Hyperreflexic on L arm. Areflexic at kJ's, AJ's. Plantars Downgoing. Coordination: Unable to test [id number] due to contracture Sensation: Normal to vibration. Gait: Pt declines at this time. Impression: 1. R cerebral dysfunction (S/P CVA. Q? cardioembolic stroke) 2. Seizures - Controlled on levetiracetam 500 mg BID 3. Migraine Headaches - quiescent on metoprolol 25 mg BID 4. 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 5. 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 Check B12, TSH, CK (CPK) Try pramipexole 0.125 mg po qhs via G-Tube. If tolerated, increase to BID PT eval for gait vs. contractures. EMG/NCS for myopathy. Thank you very much, Tolu Kaba MD
[2018-09-27 13:16] LABS: HGB SOLUBILITY Negative (Negative); Hgb A 98.1 % (96.4-98.8); Hgb C 0 % (0.0); Hgb F 0 % (0.0-2.0); Hgb S 0 % (0.0)
--- NOTE | 2018-09-27 13:28 | PN ---
Physical Exam: SUBJECTIVE: Patient seen and examined at bedside OBJECTIVE: Vital Signs Period Temp Pulse Resp BP Sys/Nichols Pulse Ox Last 24 Hr 97.8 F-98.4 F 74-95 20-26 89-124/60-68 98-99 GENERAL: The patient is awake, alert, and fully oriented, in no acute distress. EYES: conjunctiva clear. ENT: Ears normal, nares patent LUNGS: Breath sounds equal, clear to auscultation bilaterally HEART: Regular rate and rhythm, S1, S2 ABDOMEN: Soft, nontender, nondistended EXTREMITIES: no edema. NEUROLOGICAL: Normal speech, gait not observed. SKIN: Warm, dry Laboratory Results - last 24 hr 09/23/18 09/27/18 09/27/18 05:30 06:00 06:00 WBC 4.9 RBC 3.01 L Hgb 8.0 L Hct 24.8 L MCV 82.3 MCH 26.6 MCHC 32.4 RDW 21.5 H Plt Count 395 MPV 7.9 Hemoglobin A 98.1 Hemoglobin A2 1.9 Hemoglobin C 0 Hemoglobin S 0 Variant Hemoglobin 0.0 Hemoglobin Interpret Maternal Rh 0 Hemoglobin Solubility Negative PT with INR INR PTT (Actin FS) Sodium 141 Potassium 4.1 Chloride 107 Carbon Dioxide 29 Anion Gap 5 L BUN 16 Creatinine < 0.2 L Creat Clearance w eGFR 393.42 Random Glucose 78 Calcium 8.1 L Phosphorus 4.0 Magnesium 1.5 L Ferritin 45.4 Total Bilirubin 0.3 GGT 407 H AST 34 ALT 25 Alkaline Phosphatase 274 H Total Protein 5.0 L Albumin 2.4 L 09/27/18 06:00 WBC RBC Hgb Hct MCV MCH MCHC RDW Plt Count MPV Hemoglobin A Hemoglobin A2 Hemoglobin C Hemoglobin S Variant Hemoglobin Hemoglobin Interpret Maternal Rh Hemoglobin Solubility PT with INR 36.00 H INR 3.02 H PTT (Actin FS) 42.2 H Sodium Potassium Chloride Carbon Dioxide Anion Gap BUN Creatinine Creat Clearance w eGFR Random Glucose Calcium Phosphorus Magnesium Ferritin Total Bilirubin GGT AST ALT Alkaline Phosphatase Total Protein Albumin Active Medications Generic Name Dose Route Start Last Admin Trade Name Freq PRN Reason Stop Dose Admin Acetaminophen 650 mg 09/26/18 20:38 09/27/18 02:10 Tylenol - PO 650 mg Q6H PRN Administration PAIN LEVEL 7 - 10 Dexamethasone 1 mg 09/24/18 10:00 09/27/18 10:18 Decadron Liquid - NR 1 mg QID LANDEN Administration Gabapentin 250 mg 09/26/18 22:00 09/27/18 05:48 Neurontin Oral Liquid - PO 250 mg TID LANDEN Administration Ceftriaxone Sodium 1 gm/ 50 mls @ 100 mls/hr 09/27/18 10:00 09/27/18 10:21 Dextrose IVPB 100 mls/hr DAILY LANDEN Administration Protocol Doxycycline Hyclate 100 mg/ 100 mls @ 50 mls/hr 09/26/18 22:00 09/26/18 23:07 Dextrose IVPB 50 mls/hr BID LANDEN Administration Levetiracetam 500 mg 09/26/18 22:00 09/27/18 10:18 Keppra - PO 500 mg BID LANDEN Administration Loperamide HCl 2 mg 09/26/18 20:38 Imodium - PO DAILY PRN DIARRHEA Metoprolol Tartrate 5 mg 09/25/18 20:44 Lopressor Injection - IVPUSH Q4H PRN HYPERTENSION Metoprolol Tartrate 25 mg 09/26/18 22:00 Lopressor - PO BID [facility] Nitroglycerin 0.4 mg 09/26/18 20:38 Nitrostat - SL Q5M PRN FOR CHEST PAIN Non-Formulary Medication 1 each 09/27/18 10:00 Patient's Own Med PO DAILY [facility] Potassium Phos/Sodium Phos 1 packet 09/26/18 22:00 09/27/18 10:18 Phos-Nak Packet - PO 1 packet BID [facility] Administration Pramipexole Dihydrochloride 0.125 mg 09/27/18 20:00 Mirapex - GT DAILY@2000 [facility] Warfarin Sodium 5 mg 09/27/18 18:00 Coumadin - PO DAILY@1800 [facility] ASSESSMENT/PLAN: 38 y/o F w/PMH of afib (on coumadin), 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 Heme consulted for evaluation of GVHD and hodgkins lymphoma. GVHD -c/w jakofi -called placed to Dr. Tello and her service, awaiting call back. (Her primary oncologist) -decadron mouthwash -HL -s/p transplant now complicated by GVHD -called placed to Dr. Tello and her service, awaiting call back. -H/o DVT -supratherapeutic INR at 3.02 -hold coumadin today -monitor INR -Anemia -downtrending Hgb, continue to monitor. Transfuse if Hgb <7 -H/o seizures -c/w keppra Visit type - Emergency Visit Emergency Visit: Yes ED Registration Date: 09/21/18 Care time: The patient presented to the Emergency Department on the above date and was hospitalized for further evaluation of their emergent condition. - New Patient This patient is new to me today: No - Critical Care Critical Care patient: No
[2018-09-27] MEDS: DOXYCYCLINE INJECTION 100 MG in DEXTROSE 5%-WATER 100 ML IVPB SCH ×2 (14:09→22:11)
[2018-09-27] MEDS ORDERED: MAGNESIUM SULF 50% (8.12 MEQ/2 ML-1 GM VIAL) IVPB ONE (15:45)
[2018-09-27] MEDS ORDERED: WARFARIN NA 5 MG TABLET (UD) PO SCH (18:00)
--- NOTE | 2018-09-27 18:59 | PN.GI ---
GI Progress Note Subjective: GI Note: Breathing a bit better. Her LFTs are improving supporting the suspicion that her current fluctuations reflect congestive hepatopathy due to cor plumonale. I discussed his with Gissel - Objective Vital Signs: Vital Signs Temperature 97.7 F 09/27/18 14:00 Pulse Rate 92 H 09/27/18 14:00 Respiratory Rate 16 09/27/18 14:00 Blood Pressure 95/62 09/27/18 14:00 O2 Sat by Pulse Oximetry (%) 99 09/27/18 09:00 Laboratory Tests 09/23/18 09/25/18 09/27/18 05:30 05:30 06:00 Ferritin AST 66 H 59 H ALT 31 36 Alkaline Phosphatase 324 H 332 H GISELLE Screen Pending Smooth Musc &DICE SPOTTER Intrp Pending Tiss Transglutamin IgG Pending Tiss Transglutamin IgA Pending Hepatitis A Ab Total Pending Hep Bs Antigen Pending Hep Bs Antibody Pending Hep B Core Total Ab Pending Hep C Ab Diagnostic Pending 09/27/18 06:00 Ferritin 45.4 AST 34 ALT 25 Alkaline Phosphatase 274 H GISELLE Screen Smooth Musc &DICE SPOTTER Intrp Tiss Transglutamin IgG Tiss Transglutamin IgA Hepatitis A Ab Total Hep Bs Antigen Hep Bs Antibody Hep B Core Total Ab Hep C Ab Diagnostic Constitutional: Anxious ...Auscultate: Yes: Hypoactive Bowel Sounds ...Palpate: Yes: Soft, Other (nontender) Labs: CBC, BMP 09/27/18 06:00 09/27/18 06:00 INR, PTT INR 3.02 (0.83-1.09) H 09/27/18 06:00 Assessment/Plan Assessment The improvement in Gissel's LFTs and correlation to improved breathing supports congestive hepatopathy due to cor pulmonale Post CVA dysphagia Plan: Chronic liver disease studies pending. Normal ferrtitin exclude hemochromatosis. Follow LFTs Problem List - Problems (1) Elevated LFTs Code(s): R94.5 - ABNORMAL RESULTS OF LIVER FUNCTION STUDIES (2) Non-Hodgkin lymphoma Code(s): C85.90 - NON-HODGKIN LYMPHOMA, UNSPECIFIED, UNSPECIFIED SITE (3) CVA (cerebral vascular accident) Code(s): I63.9 - CEREBRAL INFARCTION, UNSPECIFIED (4) Seizure Code(s): R56.9 - UNSPECIFIED CONVULSIONS (5) Bone marrow transplant status Code(s): Z94.81 - BONE MARROW TRANSPLANT STATUS (6) Graft vs host disease Code(s): D89.813 - [id number]-[id number] DISEASE, UNSPECIFIED (7) Dysphagia as late effect of cerebrovascular accident (CVA) Code(s): I69.391 - DYSPHAGIA FOLLOWING CEREBRAL INFARCTION (8) Immunocompromised patient Code(s): D84.9 - IMMUNODEFICIENCY, UNSPECIFIED (9) Acute hypoxemic respiratory failure Code(s): J96.01 - ACUTE RESPIRATORY FAILURE WITH HYPOXIA (10) SIRS (systemic inflammatory response syndrome) Code(s): R65.10 - SIRS OF NON-INFECTIOUS ORIGIN W/O ACUTE ORGAN DYSFUNCTION
[2018-09-27] MEDS: PRAMIPEXOLE DIHYDROCHLORIDE 0.125 MG TABLET GT SCH (22:11)
[2018-09-28] MEDS ORDERED: ACETAMINOPHEN 325 MG TABLET (FP) PO ONE (00:45)
[2018-09-28] MEDS ORDERED: oxyCODONE HCL 5 MG TABLET PO ONE (00:45)
[2018-09-28 03:15] LABS: HBSAG SCREEN Negative (Negative); HEP B CORE AB, TOT Negative (Negative)
[2018-09-28 04:13] LABS: SERUM IRON SATURATION 11 % (15-55); TOTAL IRON BINDING CAPACITY 240 ug/dL (250-450); UIBC 213 ug/dL (131-425)
[2018-09-28] MEDS: GABAPENTIN 250 MG/5 ML ORAL SOLUTION, 470 ML BOTTLE PO SCH ×2 (05:33→13:47)
[2018-09-28 07:54] LABS: BASO % 1.1 % (0-2.0); EOS % 2.9 % (0-4.5); HEMATOCRIT 24.3 % (32.4-45.2); HEMOGLOBIN 7.9 GM/dL (10.7-15.3); LYMPH % 34.2 % (8-40); MCH 26.8 pg (25.7-33.7); MCHC 32.4 g/dl (32.0-36.0); MEAN CELL VOLUME 82.6 fl (80-96); MEAN PLT VOLUME 7.5 fl (7.5-11.1); MONO % 15.8 % (3.8-10.2); PLATELET COUNT 400 K/MM3 (134-434); RBC 2.95 M/mm3 (3.60-5.2); RDW 21.7 % (11.6-15.6); WHITE BLOOD COUNT 4.9 K/mm3 (4.0-10.0)
--- NOTE | 2018-09-28 08:44 | PN ---
Progress Note, Physician - Current Medication List Current Medications: Active Medications Acetaminophen (Tylenol -) 650 mg PO Q6H PRN PRN Reason: PAIN LEVEL 7 - 10 Last Admin: 09/27/18 22:11 Dose: 650 mg Dexamethasone (Decadron Liquid -) 1 mg NR QID [facility] Last Admin: 09/27/18 22:11 Dose: 1 mg Gabapentin (Neurontin Oral Liquid -) 250 mg PO TID [facility] Last Admin: 09/28/18 05:33 Dose: 250 mg Ceftriaxone Sodium 1 gm/ (Dextrose) 50 mls @ 100 mls/hr IVPB DAILY [facility]; Protocol Last Admin: 09/27/18 10:21 Dose: 100 mls/hr Doxycycline Hyclate 100 mg/ (Dextrose) 100 mls @ 50 mls/hr IVPB BID [facility] Last Admin: 09/27/18 22:11 Dose: 50 mls/hr Levetiracetam (Keppra -) 500 mg PO BID [facility] Last Admin: 09/27/18 22:11 Dose: 500 mg Loperamide HCl (Imodium -) 2 mg PO DAILY PRN PRN Reason: DIARRHEA Metoprolol Tartrate (Lopressor Injection -) 5 mg IVPUSH Q4H PRN PRN Reason: HYPERTENSION Metoprolol Tartrate (Lopressor -) 25 mg PO BID [facility] Nitroglycerin (Nitrostat -) 0.4 mg SL Q5M PRN PRN Reason: FOR CHEST PAIN Non-Formulary Medication (Patient's Own Med) 1 each PO DAILY [facility] Potassium Phos/Sodium Phos (Phos-Nak Packet -) 1 packet PO BID [facility] Last Admin: 09/27/18 22:11 Dose: 1 packet Pramipexole Dihydrochloride (Mirapex -) 0.125 mg GT DAILY@2000 [facility] Last Admin: 09/27/18 22:11 Dose: 0.125 mg Warfarin Sodium (Coumadin -) 5 mg PO DAILY@1800 [facility] - Objective Vital Signs: Vital Signs Temperature 97.5 F L 09/28/18 06:00 Pulse Rate 70 09/28/18 06:00 Respiratory Rate 18 09/28/18 06:00 Blood Pressure 101/74 09/28/18 06:00 O2 Sat by Pulse Oximetry (%) 98 09/28/18 08:09 Cardiovascular: Yes: Regular Rate and Rhythm Respiratory: Yes: Regular, CTA Bilaterally Gastrointestinal: Yes: Normal Bowel Sounds, Soft Labs: CBC, BMP 09/28/18 06:00 09/27/18 06:00 INR, PTT INR 3.02 (0.83-1.09) H 09/27/18 06:00 Problem List - Problems (1) Acute hypoxemic respiratory failure Code(s): J96.01 - ACUTE RESPIRATORY FAILURE WITH HYPOXIA (2) Hypokalemia Code(s): E87.6 - HYPOKALEMIA (3) Pneumonia Code(s): J18.9 - PNEUMONIA, UNSPECIFIED ORGANISM (4) Anticoagulant long-term use Code(s): Z79.01 - SENIOR LIVING (CURRENT) USE OF ANTICOAGULANTS (5) Hodgkin lymphoma Code(s): C81.90 - HODGKIN LYMPHOMA, UNSPECIFIED, UNSPECIFIED SITE Assessment/Plan - Problems (1) Hypokalemia Assessment/Plan: -K+ 3.8 --resolved -monitor electrolytes daily -replete as needed Code(s): E87.6 - HYPOKALEMIA (2) Hypomagnesemia Assessment/Plan: -Mg 1.7 -monitor electrolyte daily -replete as needed Code(s): E83.42 - HYPOMAGNESEMIA (3) GVHD, Assessment/Plan: -per hem -neuro (4) Leukocytosis Assessment/Plan: -WBC 3.6 -ID consult on board -continue with IV cefepime and doxycycline -afebrile Code(s): D72.829 - ELEVATED WHITE BLOOD CELL COUNT, UNSPECIFIED Qualifiers: Leukocytosis type: unspecified Qualified Code(s): D72.829 - Elevated white blood cell count, unspecified (5) Tachycardia Assessment/Plan: -cardiology on board -tele monitoring Code(s): R00.0 - TACHYCARDIA, UNSPECIFIED (6) Acute hypoxemic respiratory failure Assessment/Plan: -pulm on board -continue with BiPap HS -O2 via NRB mask -bronchodilators -keep SpO2 >90% Code(s): J96.01 - ACUTE RESPIRATORY FAILURE WITH HYPOXIA (7) Anemia Assessment/Plan: -Hg 739 -monitor Hg daily -transfuse if Hg <8.0 -Hg drop 10.6-8.4 -anemia profile, stool OB Code(s): D64.9 - ANEMIA, UNSPECIFIED (8) Anticoagulant long-term use Assessment/Plan: -continue with Coumdain -therapeutic goal INR 2-3 -daily INR monitoring -INR 2.01 Code(s): Z79.01 - SENIOR LIVING (CURRENT) USE OF ANTICOAGULANTS (9) Hodgkin lymphoma Assessment/Plan: -continue Jakafi -hematology consult Code(s): C81.90 - HODGKIN LYMPHOMA, UNSPECIFIED, UNSPECIFIED SITE (10) Elevated LFTs Assessment/Plan: -abdominal US -AST 59 and Alk phos 332 -GI consult Code(s): R94.5 - ABNORMAL RESULTS OF LIVER FUNCTION STUDIES
[2018-09-28] MEDS ORDERED: oxyCODONE HCL 5 MG TABLET PO PRN (09:01)
[2018-09-28 09:37] LABS: INR 2.55 (0.83-1.09); PROTHROMBIN TIME (PATIENT) 30.4 SEC (9.7-13.0)
[2018-09-28] MEDS ORDERED: PT OWN MED DRAWER 7, Y5N ONE ×5 (10:19→23:38)
[2018-09-28] MEDS ORDERED: DEXTROSE 5%-WATER - 50 ML IVPB ONE (10:20)
[2018-09-28] MEDS ORDERED: cefTRIAXone SODIUM 1 GM VIAL ONE (10:20)
[2018-09-28] MEDS: levETIRAcetam 500 MG TABLET (FP) PO SCH (10:25)
[2018-09-28] MEDS: CEFTRIAXONE 1 GM in DEXTROSE 5%-WATER - 50 ML IVPB SCH (10:25)
[2018-09-28] MEDS: DEXAMETHASONE LIQUID 0.5 MG/5 ML 240 ML BULK BOTTLE NR SCH ×4 (10:25→23:21)
[2018-09-28] MEDS: NAPH,MB-DB/K PH,MBDB POWDER PACKET PO SCH (10:25)
--- NOTE | 2018-09-28 11:12 | PN ---
Progress Note (short form) - Note Progress Note: doing well no longer has productive cough or chest tightness still on NRB mask didnot need a neb last night Vital Signs Period Temp Pulse Resp BP Sys/Nichols Pulse Ox Last 24 Hr 97.4 F-98.8 F 70-92 16-18 95-107/62-74 97-99 cor-rrr lungs clear abd soft,nt ext no edema +right chest wall central line skin changes chronic CBC, BMP 09/28/18 06:00 09/27/18 06:00 Microbiology 09/21/18 13:06 Blood - Axel Cath Blood Culture - Final NO GROWTH AFTER 5 DAYS INCUBATION 09/21/18 13:05 Blood - Axel Cath Blood Culture - Final NO GROWTH AFTER 5 DAYS INCUBATION 09/23/18 00:00 Sputum - Expectorated Gram Stain - Final 09/23/18 00:00 Sputum - Expectorated Sputum Culture - Final NORMAL RESPIRATORY ASHLEIGH cxray improved RLL Current Medications Acetaminophen (Tylenol -) 650 mg PO Q6H PRN PRN Reason: PAIN LEVEL 7 - 10 Last Admin: 09/27/18 22:11 Dose: 650 mg Dexamethasone (Decadron Liquid -) 1 mg NR QID [facility] Last Admin: 09/28/18 10:25 Dose: 1 mg Gabapentin (Neurontin Oral Liquid -) 250 mg PO TID [facility] Last Admin: 09/28/18 05:33 Dose: 250 mg Ceftriaxone Sodium 1 gm/ (Dextrose) 50 mls @ 100 mls/hr IVPB DAILY [facility]; Protocol Last Admin: 09/28/18 10:25 Dose: 100 mls/hr Doxycycline Hyclate 100 mg/ (Dextrose) 100 mls @ 50 mls/hr IVPB BID [facility] Last Admin: 09/27/18 22:11 Dose: 50 mls/hr Levetiracetam (Keppra -) 500 mg PO BID [facility] Last Admin: 09/28/18 10:25 Dose: 500 mg Loperamide HCl (Imodium -) 2 mg PO DAILY PRN PRN Reason: DIARRHEA Metoprolol Tartrate (Lopressor Injection -) 5 mg IVPUSH Q4H PRN PRN Reason: HYPERTENSION Metoprolol Tartrate (Lopressor -) 25 mg PO BID [facility] Last Admin: 09/28/18 10:25 Dose: 25 mg Nitroglycerin (Nitrostat -) 0.4 mg SL Q5M PRN PRN Reason: FOR CHEST PAIN Non-Formulary Medication (Patient's Own Med) 1 each PO DAILY [facility] Oxycodone HCl (Roxicodone -) 5 mg PO Q6H PRN PRN Reason: PAIN LEVEL 6-10 Potassium Phos/Sodium Phos (Phos-Nak Packet -) 1 packet PO BID [facility] Last Admin: 09/28/18 10:25 Dose: 1 packet Pramipexole Dihydrochloride (Mirapex -) 0.125 mg GT DAILY@1999 [facility] Last Admin: 09/27/18 22:11 Dose: 0.125 mg Warfarin Sodium (Coumadin -) 5 mg PO DAILY@1800 [facility] a/p acute on chronic respiratory failure-improved Right basilar pneumonia s/p influenza A-improved doing well day #5 rocephin/doxycycline complete 7 days total treatment prolonged qtc-cannot use oral quinolone 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
[2018-09-28 11:26] LABS: TRANSGLUTAMINASE IGA < 2 U/mL (0-3); TRANSGLUTAMINASE IGG 3 U/mL (0-5)
[2018-09-28] MEDS: DOXYCYCLINE INJECTION 100 MG in DEXTROSE 5%-WATER 100 ML IVPB SCH ×2 (11:52→23:10)
--- NOTE | 2018-09-28 12:33 | PN ---
Progress Note, Physician History of Present Illness: pulmonary alert,comfortable,sob continues to improved,on 70%nrbm - Current Medication List Current Medications: Active Medications Acetaminophen (Tylenol -) 650 mg PO Q6H PRN PRN Reason: PAIN LEVEL 7 - 10 Last Admin: 09/27/18 22:11 Dose: 650 mg Dexamethasone (Decadron Liquid -) 1 mg NR QID [facility] Last Admin: 09/28/18 10:25 Dose: 1 mg Gabapentin (Neurontin Oral Liquid -) 250 mg PO TID [facility] Last Admin: 09/28/18 05:33 Dose: 250 mg Ceftriaxone Sodium 1 gm/ (Dextrose) 50 mls @ 100 mls/hr IVPB DAILY [facility]; Protocol Last Admin: 09/28/18 10:25 Dose: 100 mls/hr Doxycycline Hyclate 100 mg/ (Dextrose) 100 mls @ 50 mls/hr IVPB BID [facility] Last Admin: 09/28/18 11:52 Dose: 50 mls/hr Levetiracetam (Keppra -) 500 mg PO BID [facility] Last Admin: 09/28/18 10:25 Dose: 500 mg Loperamide HCl (Imodium -) 2 mg PO DAILY PRN PRN Reason: DIARRHEA Metoprolol Tartrate (Lopressor Injection -) 5 mg IVPUSH Q4H PRN PRN Reason: HYPERTENSION Metoprolol Tartrate (Lopressor -) 25 mg PO BID [facility] Last Admin: 09/28/18 10:25 Dose: 25 mg Nitroglycerin (Nitrostat -) 0.4 mg SL Q5M PRN PRN Reason: FOR CHEST PAIN Non-Formulary Medication (Patient's Own Med) 1 each PO DAILY [facility] Oxycodone HCl (Roxicodone -) 5 mg PO Q6H PRN PRN Reason: PAIN LEVEL 6-10 Potassium Phos/Sodium Phos (Phos-Nak Packet -) 1 packet PO BID [facility] Last Admin: 09/28/18 10:25 Dose: 1 packet Pramipexole Dihydrochloride (Mirapex -) 0.125 mg GT DAILY@2000 [facility] Last Admin: 09/27/18 22:11 Dose: 0.125 mg Warfarin Sodium (Coumadin -) 5 mg PO DAILY@1800 [facility] - Objective Vital Signs: Vital Signs Temperature 98.8 F 09/28/18 10:24 Pulse Rate 85 09/28/18 10:24 Respiratory Rate 18 09/28/18 10:24 Blood Pressure 106/70 09/28/18 10:24 O2 Sat by Pulse Oximetry (%) 100 09/28/18 11:58 Constitutional: Yes: Well Nourished, Calm Eyes: Yes: WNL HENT: Yes: WNL Neck: Yes: WNL Cardiovascular: Yes: Regular Rate and Rhythm, S1, S2 Respiratory: Yes: Rhonchi (few rhonchi) Gastrointestinal: Yes: Normal Bowel Sounds, Soft Extremities: Yes: WNL Edema: No Labs: CBC, BMP 09/28/18 06:00 INR, PTT INR 2.55 (0.83-1.09) H 09/28/18 06:00 Problem List - Problems (1) Acute on chronic respiratory failure with hypoxemia Code(s): J96.21 - ACUTE AND CHRONIC RESPIRATORY FAILURE WITH HYPOXIA (2) CVA (cerebral vascular accident) Code(s): I63.9 - CEREBRAL INFARCTION, UNSPECIFIED (3) Immunocompromised patient Code(s): D84.9 - IMMUNODEFICIENCY, UNSPECIFIED (4) Non-Hodgkin lymphoma Code(s): C85.90 - NON-HODGKIN LYMPHOMA, UNSPECIFIED, UNSPECIFIED SITE (5) Pneumonia Code(s): J18.9 - PNEUMONIA, UNSPECIFIED ORGANISM (6) Seizure Code(s): R56.9 - UNSPECIFIED CONVULSIONS (7) Shortness of breath Code(s): R06.02 - SHORTNESS OF BREATH (8) Anticoagulant long-term use Code(s): Z79.01 - SKILLED NURSING (CURRENT) USE OF ANTICOAGULANTS (9) Hodgkin lymphoma Code(s): C81.90 - HODGKIN LYMPHOMA, UNSPECIFIED, UNSPECIFIED SITE Assessment/Plan ASSESSMENT AND PLAN: Acute on Chronic Hypoxic Respiratory Failure clinically improving Pneumonia improving Atelectasis improving Hodgkin's Lymphoma s/p Stem Cell Transplant h/o CVA Seizure Disorder h/o DVT - Antibiotics per ID - O2 to keep Spo2 >90% - NIPPV as needed to assist in work of breathing - PO as tolerated - Incentive spirometry - Inhaled bronchodilators - anticoagulation - Gabapentin -reduce fio2 to maintain o2 sat 90% or > DR WILSON
[2018-09-28] MEDS ORDERED: ALBUTEROL SO4 0.083% IH SOL 2.5 MG/3 ML VIAL.NEB. NEB PRN (12:34)
[2018-09-28 12:51] LABS: ANISOCYTOSIS 2+; MACROCYTOSIS 0; PLATELET ESTIMATE NORMAL; TARGET CELLS 1+; TEAR DROP CELLS 1+
[2018-09-28] MEDS: ALBUTEROL SO4 2.5/IPRATROPIUM 0.5 INH SOL 3 ML VIAL.NEB. NEB SCH ×2 (16:02→21:30)
[2018-09-28] MEDS ORDERED: LOPERAMIDE HCL 2 MG CAPSULE GT PRN (16:22)
[2018-09-28] MEDS ORDERED: WARFARIN NA 5 MG TABLET (UD) PO SCH (18:00)
[2018-09-28] MEDS: WARFARIN NA 5 MG TABLET (UD) GT SCH (18:26)
[2018-09-28] MEDS: PRAMIPEXOLE DIHYDROCHLORIDE 0.125 MG TABLET GT SCH (20:23)
[2018-09-28] MEDS: NAPH,MB-DB/K PH,MBDB POWDER PACKET GT SCH (23:10)
[2018-09-28] MEDS: GABAPENTIN 250 MG/5 ML ORAL SOLUTION, 470 ML BOTTLE GT SCH (23:11)
[2018-09-28] MEDS: oxyCODONE HCL 5 MG TABLET GT PRN (23:12)
[2018-09-28] MEDS: METOPROLOL TARTRATE 25 MG TABLET (FP) GT SCH (23:12)
[2018-09-28] MEDS: levETIRAcetam 500 MG/5 ML ORAL SOLUTION BULK GT SCH (23:21)
[2018-09-29] MEDS ORDERED: PT OWN MED DRAWER 7, Y5N ONE ×4 (06:16→21:34)
[2018-09-29] MEDS: oxyCODONE HCL 5 MG TABLET GT PRN ×2 (06:26→18:13)
[2018-09-29] MEDS: GABAPENTIN 250 MG/5 ML ORAL SOLUTION, 470 ML BOTTLE GT SCH ×3 (06:26→21:47)
[2018-09-29] MEDS: ALBUTEROL SO4 2.5/IPRATROPIUM 0.5 INH SOL 3 ML VIAL.NEB. NEB SCH ×4 (07:20→19:45)
--- NOTE | 2018-09-29 10:47 | PN ---
Progress Note, Physician Chief Complaint: patient seen and examined off the oxygen right now awake alert wants PT to see her on iv abx for right basilar PNA - Current Medication List Current Medications: Active Medications Acetaminophen (Tylenol -) 650 mg PO Q6H PRN PRN Reason: PAIN LEVEL 7 - 10 Last Admin: 09/27/18 22:11 Dose: 650 mg Albuterol Sulfate (Ventolin 0.083% Nebulizer Soln -) 1 amp NEB Q4H PRN PRN Reason: SHORT OF BREATH/WHEEZING Albuterol/Ipratropium (Duoneb -) 1 amp NEB RQID [facility] 234 BEDS AT [facility] Last Admin: 09/29/18 07:20 Dose: 1 amp Dexamethasone (Decadron Liquid -) 1 mg NR QID [facility] 234 BEDS AT [facility] Last Admin: 09/28/18 23:21 Dose: 1 mg Gabapentin (Neurontin Oral Liquid -) 250 mg GT TID [facility] 234 BEDS AT [facility] Last Admin: 09/29/18 06:26 Dose: 250 mg Ceftriaxone Sodium 1 gm/ (Dextrose) 50 mls @ 100 mls/hr IVPB DAILY [facility] 234 BEDS AT [facility]; Protocol Last Admin: 09/28/18 10:25 Dose: 100 mls/hr Doxycycline Hyclate 100 mg/ (Dextrose) 100 mls @ 50 mls/hr IVPB BID [facility] 234 B[facility]S AT [facility] Last Admin: 09/28/18 23:10 Dose: 50 mls/hr Levetiracetam (Levetiracetam Oral Suspension) 500 mg GT BID [facility] 234 BEDS AT [facility] Last Admin: 09/28/18 23:21 Dose: 500 mg Loperamide HCl (Imodium -) 2 mg GT DAILY PRN PRN Reason: DIARRHEA Metoprolol Tartrate (Lopressor Injection -) 5 mg IVPUSH Q4H PRN PRN Reason: HYPERTENSION Metoprolol Tartrate (Lopressor -) 25 mg GT BID [facility] 234 BEDS AT [facility] Last Admin: 09/28/18 23:12 Dose: 25 mg Nitroglycerin (Nitrostat -) 0.4 mg SL Q5M PRN PRN Reason: FOR CHEST PAIN Jakafi 5mg Tab Patient's Own Medication (Non- Formulary) 1 each PO BID [facility] 234 B[facility]S AT [facility] Oxycodone HCl (Roxicodone -) 5 mg GT Q6H PRN PRN Reason: PAIN LEVEL 6-10 Last Admin: 09/29/18 06:26 Dose: 5 mg Potassium Phos/Sodium Phos (Phos-Nak Packet -) 1 packet GT BID [facility] 234 B[facility]S AT [facility] Last Admin: 09/28/18 23:10 Dose: 1 packet Pramipexole Dihydrochloride (Mirapex -) 0.125 mg GT DAILY@2000 [facility]S [facility]CLUDE 234 BEDS AT [facility] Last Admin: 09/28/18 20:23 Dose: 0.125 mg Warfarin Sodium (Coumadin -) 5 mg GT DAILY@1800 [facility]CLUDE 234 BEDS AT [facility] Last Admin: 09/28/18 18:26 Dose: 5 mg - Objective Vital Signs: Vital Signs Temperature 98.0 F 09/29/18 06:00 Pulse Rate 82 09/29/18 06:00 Respiratory Rate 18 09/29/18 06:00 Blood Pressure 106/73 09/29/18 06:00 O2 Sat by Pulse Oximetry (%) 97 09/28/18 21:00 Constitutional: Yes: Calm, Thin Cardiovascular: Yes: Regular Rate and Rhythm, S1, S2 Respiratory: Yes: Diminished Gastrointestinal: Yes: Normal Bowel Sounds, Soft Edema: No Neurological: Yes: Alert Labs: CBC, BMP 09/28/18 06:00 09/27/18 06:00 INR, PTT INR 2.55 (0.83-1.09) H 09/28/18 06:00 Problem List - Problems (1) Acute on chronic respiratory failure with hypoxemia Assessment/Plan: NIPPV as needed bronchodilators Code(s): J96.21 - ACUTE AND CHRONIC RESPIRATORY FAILURE WITH HYPOXIA (2) Pneumonia Assessment/Plan: day 6 of iv abx tmw is last day of iv abx Code(s): J18.9 - PNEUMONIA, UNSPECIFIED ORGANISM (3) Anemia Assessment/Plan: s/p PRBC repeat cbc ordered venofer Code(s): D64.9 - ANEMIA, UNSPECIFIED (4) Non-Hodgkin lymphoma Assessment/Plan: decadron mouth wash and jakofi Code(s): C85.90 - NON-HODGKIN LYMPHOMA, UNSPECIFIED, UNSPECIFIED SITE (5) Disorder of electrolytes Assessment/Plan: recheck magnesium and phosphorous Code(s): E87.8 - OTH DISORDERS OF ELECTROLYTE AND FLUID BALANCE, NEC
[2018-09-29] MEDS ORDERED: IRON SUCROSE INJECTION 200 MG in SODIUM CHLORIDE 90 ML IVPB ONE (11:15)
[2018-09-29] MEDS ORDERED: cefTRIAXone SODIUM 1 GM VIAL ONE (11:45)
[2018-09-29] MEDS ORDERED: DEXTROSE 5%-WATER - 50 ML IVPB ONE (11:45)
[2018-09-29] MEDS: CEFTRIAXONE 1 GM in DEXTROSE 5%-WATER - 50 ML IVPB SCH (11:49)
[2018-09-29] MEDS: DOXYCYCLINE INJECTION 100 MG in DEXTROSE 5%-WATER 100 ML IVPB SCH ×2 (11:49→21:46)
[2018-09-29] MEDS: NAPH,MB-DB/K PH,MBDB POWDER PACKET GT SCH ×2 (11:57→21:48)
[2018-09-29] MEDS: DEXAMETHASONE LIQUID 0.5 MG/5 ML 240 ML BULK BOTTLE NR SCH ×4 (11:57→21:47)
[2018-09-29] MEDS: METOPROLOL TARTRATE 25 MG TABLET (FP) GT SCH ×2 (11:58→21:49)
[2018-09-29] MEDS: JAKAFI 5 MG PO SCH ×2 (11:58→21:49)
[2018-09-29] MEDS: levETIRAcetam 500 MG/5 ML ORAL SOLUTION BULK GT SCH ×2 (11:59→21:47)
--- NOTE | 2018-09-29 12:43 | PN ---
Progress Note (short form) - Note Progress Note: PULMONARY States breathing is improving. Saturating 90-91% on room air. No significant cough. No fevers recorded. Vital Signs Period Temp Pulse Resp BP Sys/Nichols Pulse Ox Last 24 Hr 98.0 F-98.5 F 77-90 16-18 96-116/61-82 97-99 Gen: NAD at rest Heart: RRR Lung: decreased breath sounds at the bases Abd: soft, nontender Ext: no edema CBC, BMP 09/28/18 06:00 09/27/18 06:00 Active Medications Acetaminophen (Tylenol -) 650 mg PO Q6H PRN PRN Reason: PAIN LEVEL 7 - 10 Last Admin: 09/27/18 22:11 Dose: 650 mg Albuterol Sulfate (Ventolin 0.083% Nebulizer Soln -) 1 amp NEB Q4H PRN PRN Reason: SHORT OF BREATH/WHEEZING Albuterol/Ipratropium (Duoneb -) 1 amp NEB RQID [facility] Last Admin: 09/29/18 11:49 Dose: 1 amp Dexamethasone (Decadron Liquid -) 1 mg NR QID [facility] Last Admin: 09/29/18 11:57 Dose: 1 mg Gabapentin (Neurontin Oral Liquid -) 250 mg GT TID [facility] Last Admin: 09/29/18 06:26 Dose: 250 mg Ceftriaxone Sodium 1 gm/ (Dextrose) 50 mls @ 100 mls/hr IVPB DAILY [facility]; Protocol Last Admin: 09/29/18 11:49 Dose: 100 mls/hr Doxycycline Hyclate 100 mg/ (Dextrose) 100 mls @ 50 mls/hr IVPB BID [facility] Last Admin: 09/29/18 11:49 Dose: 50 mls/hr Levetiracetam (Levetiracetam Oral Suspension) 500 mg GT BID [facility] Last Admin: 09/29/18 11:59 Dose: 500 mg Loperamide HCl (Imodium -) 2 mg GT DAILY PRN PRN Reason: DIARRHEA Metoprolol Tartrate (Lopressor Injection -) 5 mg IVPUSH Q4H PRN PRN Reason: HYPERTENSION Metoprolol Tartrate (Lopressor -) 25 mg GT BID [facility] Last Admin: 09/29/18 11:58 Dose: 25 mg Nitroglycerin (Nitrostat -) 0.4 mg SL Q5M PRN PRN Reason: FOR CHEST PAIN Jakafi 5mg Tab Patient's Own Medication (Non- Formulary) 1 each PO BID [facility] Last Admin: 09/29/18 11:58 Dose: 1 each Oxycodone HCl (Roxicodone -) 5 mg GT Q6H PRN PRN Reason: PAIN LEVEL 6-10 Last Admin: 09/29/18 06:26 Dose: 5 mg Potassium Phos/Sodium Phos (Phos-Nak Packet -) 1 packet GT BID [facility] Last Admin: 09/29/18 11:57 Dose: 1 packet Pramipexole Dihydrochloride (Mirapex -) 0.125 mg GT DAILY@2000 [facility] Last Admin: 09/28/18 20:23 Dose: 0.125 mg Warfarin Sodium (Coumadin -) 5 mg GT DAILY@1800 [facility] Last Admin: 09/28/18 18:26 Dose: 5 mg A/P Acute on Chronic Hypoxic Respiratory Failure clinically improving Pneumonia improving Atelectasis improving Hodgkin's Lymphoma s/p Stem Cell Transplant h/o CVA Seizure Disorder h/o DVT - complete antibiotics per ID - O2 to keep Spo2 >90% - BiPAP as needed to assist in work of breathing - PO as tolerated - incentive spirometry - inhaled bronchodilators - continue anticoagulation
[2018-09-29 17:32] LABS: BASO % 1.5 % (0-2.0); EOS % 0.4 % (0-4.5); HEMATOCRIT 37.5 % (32.4-45.2); HEMOGLOBIN 12.5 GM/dL (10.7-15.3); LYMPH % 14.9 % (8-40); MCH 28.1 pg (25.7-33.7); MCHC 33.4 g/dl (32.0-36.0); MEAN CELL VOLUME 84.1 fl (80-96); MEAN PLT VOLUME 7.6 fl (7.5-11.1); MONO % 7.1 % (3.8-10.2); NEUT % 76.1 % (42.8-82.8); PLATELET COUNT 403 K/MM3 (134-434); RBC 4.46 M/mm3 (3.60-5.2); WHITE BLOOD COUNT 6.1 K/mm3 (4.0-10.0)
[2018-09-29 17:42] LABS: INR 2.68 (0.83-1.09)
[2018-09-29 18:06] LABS: ALBUMIN 2.8 g/dl (3.4-5.0); ALK PHOS 384 U/L (45-117); ANION GAP 6 MMOL/L (8-16); BILIRUBIN,TOTAL 0.4 mg/dL (0.2-1); BLOOD UREA NITROGEN 9 mg/dL (7-18); CALCIUM 8.9 mg/dL (8.5-10.1); CHLORIDE 102 mmol/L (98-107); CO2 29 mmol/L (21-32); CREATININE 0.2 mg/dL (0.55-1.3); GLUCOSE,RANDOM 160 mg/dL (74-106); MAGNESIUM 1.6 mg/dL (1.8-2.4); PHOSPHOROUS 3.7 mg/dL (2.5-4.9); SGOT/AST 98 U/L (15-37); SGPT/ALT 37 U/L (13-61); SODIUM 138 mmol/L (136-145); TOT PROT 5.9 g/dl (6.4-8.2)
[2018-09-29] MEDS: WARFARIN NA 5 MG TABLET (UD) GT SCH (18:08)
[2018-09-29] MEDS: PRAMIPEXOLE DIHYDROCHLORIDE 0.125 MG TABLET GT SCH (21:48)
[2018-09-30] MEDS: oxyCODONE HCL 5 MG TABLET GT PRN ×2 (00:12→06:45)
[2018-09-30 05:59] LABS: BASO % 0.9 % (0-2.0); HEMATOCRIT 35.5 % (32.4-45.2); HEMOGLOBIN 11.8 GM/dL (10.7-15.3); LYMPH % 37.7 % (8-40); MCH 27.9 pg (25.7-33.7); MCHC 33.2 g/dl (32.0-36.0); MEAN PLT VOLUME 7.6 fl (7.5-11.1); MONO % 13.8 % (3.8-10.2); NEUT % 47.6 % (42.8-82.8); PLATELET COUNT 402 K/MM3 (134-434); RBC 4.22 M/mm3 (3.60-5.2); RDW 17.8 % (11.6-15.6); WHITE BLOOD COUNT 3.2 K/mm3 (4.0-10.0)
[2018-09-30 06:27] LABS: INR 3.03 (0.83-1.09); PROTHROMBIN TIME (PATIENT) 36.2 SEC (9.7-13.0)
[2018-09-30 06:42] LABS: ALBUMIN 2.6 g/dl (3.4-5.0); ALK PHOS 364 U/L (45-117); ANION GAP 4 MMOL/L (8-16); BILIRUBIN,TOTAL 0.3 mg/dL (0.2-1); BLOOD UREA NITROGEN 9 mg/dL (7-18); CALCIUM 8.9 mg/dL (8.5-10.1); CHLORIDE 103 mmol/L (98-107); CO2 30 mmol/L (21-32); GLUCOSE,RANDOM 147 mg/dL (74-106); MAGNESIUM 1.5 mg/dL (1.8-2.4); PHOSPHOROUS 3.1 mg/dL (2.5-4.9); POTASSIUM 4.2 mmol/L (3.5-5.1); SGOT/AST 124 U/L (15-37); SGPT/ALT 49 U/L (13-61); SODIUM 136 mmol/L (136-145); TOT PROT 5.5 g/dl (6.4-8.2)
[2018-09-30 06:43] LABS: CREATININE < 0.2 mg/dL (0.55-1.3)
[2018-09-30] MEDS: GABAPENTIN 250 MG/5 ML ORAL SOLUTION, 470 ML BOTTLE GT SCH ×2 (06:45→14:57)
[2018-09-30] MEDS: ALBUTEROL SO4 2.5/IPRATROPIUM 0.5 INH SOL 3 ML VIAL.NEB. NEB SCH ×3 (08:10→15:00)
[2018-09-30] MEDS ORDERED: DEXTROSE 5%-WATER - 100 ML IVPB ONE (10:02)
[2018-09-30] MEDS ORDERED: cefTRIAXone SODIUM 1 GM VIAL ONE (10:02)
[2018-09-30] MEDS: DOXYCYCLINE INJECTION 100 MG in DEXTROSE 5%-WATER 100 ML IVPB SCH (10:26)
[2018-09-30] MEDS: CEFTRIAXONE 1 GM in DEXTROSE 5%-WATER - 50 ML IVPB SCH (10:26)
[2018-09-30] MEDS: NAPH,MB-DB/K PH,MBDB POWDER PACKET GT SCH (10:27)
[2018-09-30] MEDS: levETIRAcetam 500 MG/5 ML ORAL SOLUTION BULK GT SCH (10:27)
[2018-09-30] MEDS: METOPROLOL TARTRATE 25 MG TABLET (FP) GT SCH (10:27)
[2018-09-30] MEDS: DEXAMETHASONE LIQUID 0.5 MG/5 ML 240 ML BULK BOTTLE NR SCH ×2 (10:27→14:58)
[2018-09-30] MEDS: JAKAFI 5 MG PO SCH (10:28)
[2018-09-30 11:06] LABS: PLATELET ESTIMATE NORMAL
[2018-09-30] MEDS ORDERED: MAGNESIUM SULF 50% (8.12 MEQ/2 ML-1 GM VIAL) IVPB ONE (11:49)
[2018-09-30] MEDS ORDERED: IRON SUCROSE INJECTION 200 MG in SODIUM CHLORIDE 90 ML IVPB ONE (11:53)
--- NOTE | 2018-09-30 11:54 | DS ---
Physical Examination Vital Signs: Vital Signs Temperature 97.7 F 09/30/18 06:00 Pulse Rate 70 09/30/18 06:00 Respiratory Rate 18 09/30/18 06:00 Blood Pressure 104/72 09/30/18 06:00 O2 Sat by Pulse Oximetry (%) 94 L 09/30/18 08:09 Findings/Remarks: Primary Care Physician PCP: Nikki Bahena - Admission Chief Complaint: Hypoxia, Tachycardia History of Present Illness: Patient is a 38 y/o female patient with past medical history of Afib (on coumadin), Non-Hodkin's Lymphoma s/p stem cell transplant on Jakafi, CVA (2017) with residual LUE/LLE/RLE weakness, Seizure. Patient presented to ER from [facility] for SOB that was worsening over past few days. Complains of feeling chest tightness and congestion worseing over past few days. In ER patient found to be hypoxic with SpO2 80s on NRB, tachycardic with HR 130s, and tachypneic. Patient placed on Bipap and states SOB is somehwhat improving. CXR shows bibasilar changes, leukocytosis, troponin 0.04. patient admitted for worseing resp distress Constitutional: Yes: Calm, Thin Cardiovascular: Yes: Regular Rate and Rhythm, S1, S2 Respiratory: Yes: Diminished Gastrointestinal: Yes: Normal Bowel Sounds, Soft, Other (g tube) Edema: No Neurological: Yes: Alert, Oriented Labs: CBC, BMP 09/30/18 05:30 09/30/18 05:30 Discharge Summary Reason For Visit: SOB LEUKOCYTOSIS TACHYCARDIA HPOXIA HYPOKALEMIA Current Active Problems Acute on chronic respiratory failure with hypoxemia (Acute) Bone marrow transplant status (Acute) CVA (cerebral vascular accident) (Acute) Disorder of electrolytes (Acute) Dysphagia as late effect of cerebrovascular accident (CVA) (Acute) Elevated LFTs (Acute) Graft vs host disease (Acute) Hypokalemia (Acute) Hypomagnesemia (Acute) Hypoxia (Acute) Immunocompromised patient (Acute) Leukocytosis (Acute) Non-Hodgkin lymphoma (Acute) Pneumonia (Acute) Seizure (Acute) Shortness of breath (Acute) Tachycardia (Acute) Hospital Course: Primary Care Physician PCP: Nikki Bahena - Admission Chief Complaint: Hypoxia, Tachycardia History of Present Illness: Patient is a 38 y/o female patient with past medical history of Afib (on coumadin), Non-Hodkin's Lymphoma s/p stem cell transplant on Jakafi, CVA (2017) with residual LUE/LLE/RLE weakness, Seizure. Patient presented to ER from [facility] for SOB that was worsening over past few days. Complains of feeling chest tightness and congestion worseing over past few days. In ER patient found to be hypoxic with SpO2 80s on NRB, tachycardic with HR 130s, and tachypneic. Patient placed on Bipap and states SOB is somehwhat improving. CXR shows bibasilar changes, leukocytosis, troponin 0.04. patient got iv rocephin and iv doxycycline for 7 days now oral ceftin 500mg po bid for 7days anemia venofer and prbc electrolytes repleted started on oral magnesium oxide Condition: Stable - Instructions Diet, Activity, Other Instructions: magnesium oxide 400mg po bid for 4 days ceftin 500mg po bid for 7days Disposition: [facility] - Home Medications Comprehensive Discharge Medication List: Ambulatory Orders Gabapentin Liquid [Neurontin Oral Liquid -] 250 mg PEG TID 08/12/18 Loperamide HCl [Imodium A-D] 2 mg PEG DAILY 08/12/18 Potassium Chloride [Klor-Con] 20 meq GT DAILY 08/12/18 Dexamethasone Liquid - [Decadron Liquid -] 0.5 mg PO DAILY ml 08/30/18 Guaifenesin Dm [Robitussin Dm -] 10 ml PO Q6H PRN cup 08/30/18 Albuterol 0.083% Nebulizer Stephanie [Ventolin 0.083% Nebulizer Soln -] 1 amp NEB Q6H PRN amp 09/06/18 Nitroglycerin Sublingual [Nitrostat -] 0.4 mg SL Q5M PRN tab 09/06/18 Warfarin Na [Coumadin -] 2.5 mg PO SUMOWEFRSA tablet 09/06/18 Warfarin Na [Coumadin -] 5 mg PO TUTH tablet 09/06/18 Levetiracetam [Spritam] 500 mg GT BID 09/21/18 Lidocaine [Aspercreme] 1 each TP DAILY 09/21/18 Metoprolol Tartrate [Lopressor -] 25 mg GT BID 09/21/18 Polyvinyl Alcohol [Artificial Tears] 15 ml OP Q8H PRN 09/21/18 Ruxolitinib Phosphate [Jakafi] 5 mg GT BID 09/21/18 Sodium,Potassium Phosphates [Phos-Nak Packet] 1 each GT BID 09/21/18 oxyCODONE HCL [Roxicodone -] 5 mg GT Q6H PRN MDD 4 09/21/18
[2018-09-30] MEDS ORDERED: PT OWN MED DRAWER 7, Y5N ONE (13:16)
[2018-09-30 14:49] VITALS: BP 98/59; PULSE 73; TEMP 97.9
--- NOTE | 2018-09-30 20:00 | PN ---
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 Tello --patient also on sirolimus/actigall MEd list from Dr. Reynolds office -- updated. List given with discharge instructions/ list given to patient and discussed with Dr. Bahena/ and patient
[2018-09-30] MEDS ORDERED: MAGNESIUM OXIDE 400 MG TABLET (FP) PO SCH (22:00)
--- NOTE | 2018-11-07 11:08 | EKG ---
Test Reason : Blood Pressure : / mmHG Vent. Rate : 131 BPM Atrial Rate : 131 BPM P-R Int : 134 ms QRS Dur : 064 ms QT Int : 342 ms P-R-T Axes : 003 050 019 degrees QTc Int : 505 ms SINUS TACHYCARDIA OTHERWISE NORMAL ECG WHEN COMPARED WITH ECG OF 21-SEP-2018 12:18, PREMATURE VENTRICULAR COMPLEXES ARE NO LONGER PRESENT Confirmed by PHUONG ESCOBAR MD ([id number]) on 11/07/2018 11:07:38 AM Referred By: RAVINDER Confirmed By:PHUONG ESCOBAR MD
== END 2018-09-30 18:32 | DRG 193 ==
LOC: JER 11:46 → JERBED 14:41 → JICU 18:03 → J4S 09-26 20:30
PROVIDERS: ADMIT Family Medicine; ATTEND Family Medicine
PROC: 5A09457 Assistance with Respiratory Ventilation, 24-96 Consecutive Hours, Continuous Positive Airway Pressure (ICD-10-PCS; principal; 2018-09-21)
DX: J18.9 Pneumonia, unspecified organism (principal); J96.21 Acute and chronic respiratory failure with hypoxia; C81.90 Hodgkin lymphoma, unspecified, unspecified site; R65.10 Systemic inflammatory response syndrome (SIRS) of non-infectious origin without acute organ dysfunction; J98.11 Atelectasis; Z94.84 Stem cells transplant status; I69.351 Hemiplegia and hemiparesis following cerebral infarction affecting right dominant side; I69.354 Hemiplegia and hemiparesis following cerebral infarction affecting left non-dominant side; R64 Cachexia; E87.6 Hypokalemia; E83.42 Hypomagnesemia; D72.829 Elevated white blood cell count, unspecified; R00.0 Tachycardia, unspecified; Z79.01 Long term (current) use of anticoagulants; Z85.72 Personal history of non-Hodgkin lymphomas; G40.909 Epilepsy, unspecified, not intractable, without status epilepticus; I48.0 Paroxysmal atrial fibrillation; K52.9 Noninfective gastroenteritis and colitis, unspecified; Z68.23 Body mass index [BMI] 23.0-23.9, adult; Z86.718 Personal history of other venous thrombosis and embolism; I45.81 Long QT syndrome; I69.391 Dysphagia following cerebral infarction; R13.10 Dysphagia, unspecified
CPT/HCPCS: 36415; 36430; 36511; 71045-TC-FY; 76705-TC; 80053; 80061; 82550; 82728; 82803; 82962; 82977; 83021; 83516; 83540; 83550; 83605; 83721; 83735; 84100; 84484; 85025; 85027; 85610; 85660; 85730; 86038; 86704; 86706; 86708; 86803; 86850; 86900; 86901; 86922; 87040; 87070; 87205; 87340; 93005; 93010; 93306-TC; 94640; 94660; 97162-GP; 99284-25; G0480; J0131; J1756; P9038; P9058

== ENCOUNTER 2019-07-26 10:41 | Emergency (ER) | payer OTHER ==
[2019-07-26 11:18] VITALS: TEMP 98.1; BMI 29.9
--- NOTE | 2019-07-26 15:46 | CON.GI ---
Consult Consult Specialty:: Gastroenterology Referred by:: Dr. Quinones - History of Present Illness Chief Complaint: G tube malfunction History of Present Illness: 38yo female h/o Non-Hodgkins Lymphoma s/p Stem Cell Transplant on Jakafi, Graft Versus Host Disease, CVA, (04/2018), Paroxysmal A-Fib (on Coumadin), Seizure Disorder presents from [facility] for evaluation of G tube malfunction. Pt reporting increased abdominal distension over the past few weeks and leakage at G tube site. States G tube was placed approximately 4 years ago at [facility] ( no report available), denies priortube replacement however states adaptor port was recently changed at shelter. Pt has been using tube only for meds, states she eats regular diet. Notes leakage at tube site over the past month when meds being instilled though states sometimes clamp not closed properly by staff, also occasional leakage when eating food/liquids. Denies pain or tenderness at G tube site. Moving bowels, denies nausea/vomiting or fever/ chills. 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 Cardio/Vascular: Yes: AFIB Pulmonary: Yes: Pneumonia (repeated pneumonias and a bout with the flu left her with a bronchspastic lung disease) Hepatobiliary: Yes: Other (lymphoma related abnormal LFTs) Musculoskeletal: Yes: Hemiplegia - Past Surgical History Past Surgical History: Yes: Colonoscopy, (x 2), Hysterectomy, Upper Endoscopy - Alcohol/Substance Use Hx Alcohol Use: No History of Substance Use: reports: None - Smoking History Smoking history: Unknown if ever smoked Have you smoked in the past 12 months: No - Social History Usual Living Arrangement: Correction ADL: Support Services 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: [employer]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 History of Recent Travel: No Home Medications - Allergies Allergies/Adverse Reactions: Allergies Allergy/AdvReac Type Severity Reaction Status Date / Time bleomycin Allergy Verified 07/26/19 11:05 nut - unspecified Allergy Verified 07/26/19 11:05 peanut Allergy Verified 07/26/19 11:05 rivaroxaban Allergy Verified 07/26/19 11:05 - Home Medications Home Medications: Ambulatory Orders Cyclobenzaprine HCl [Flexeril -] 10 mg GT TID 07/26/19 Dexamethasone Liquid - [Decadron Liquid -] 0.5 mg GT Q8H 02/05/20 Diphenhydramine [Benadryl Oral Solution -] 25 mg GT DAILY 07/26/19 Gabapentin Liquid [Neurontin Oral Liquid -] 300 mg PO TID 07/26/19 Metoprolol Tartrate [Lopressor -] 25 mg GT BID 07/26/19 Oxycodone HCl [Oxycontin] 10 mg GT BID 07/26/19 Posaconazole [Noxafil] 60 mg GT Q8H 07/26/19 Ruxolitinib Phosphate [Jakafi] 5 mg GT BID 07/26/19 Sertraline HCl [Zoloft -] 50 mg GT DAILY 07/26/19 Sirolimus [Rapamune] 0.6 ml GT ASDIR 07/26/19 Sulfamethoxazole/Trimethoprim [Bactrim Oral Suspension -] 10 ml GT BID 07/26/19 Ursodiol 30 mg GT TID 07/26/19 Warfarin Na [Coumadin] 4 mg GT HS 07/26/19 levETIRAcetam [Keppra Oral Solution -] 500 mg GT BID 07/26/19 oxyCODONE HCL [Roxicodone -] 10 mg GT Q6H PRN 07/26/19 Review of Systems - Review of Systems Constitutional: reports: No Symptoms Cardiovascular: reports: No Symptoms Respiratory: reports: No Symptoms Gastrointestinal: reports: Bloating, Other (G tube leakage) Physical Exam-GI Vital Signs: Vital Signs Temperature 98.1 F 07/26/19 11:12 Pulse Rate 117 H 07/26/19 14:04 Respiratory Rate 18 07/26/19 14:04 Blood Pressure 123/82 07/26/19 14:04 O2 Sat by Pulse Oximetry (%) 100 07/26/19 14:04 Constitutional: Yes: No Distress, Calm Cardiovascular: Yes: WNL, Regular Rate and Rhythm Respiratory: Yes: WNL, Regular, CTA Bilaterally ...Palpate: Yes: Other (Abd softly distended nontender +G tube in place, no external bumper, no obvious tube markings, flushed with 20cc sterile water easily, no leakage seen, aspirated scant greenish gastric contents) Problem List - Problems (1) Gastrostomy tube dysfunction Assessment/Plan: 38yo female h/o Non-Hodgkins Lymphoma s/p Stem Cell Transplant on Jakafi, Graft Versus Host Disease, CVA, (04/2018), Paroxysmal A-Fib (on Coumadin), Seizure Disorder presents from [facility] for evaluation of G tube malfunction. G tube reportedly initially placed at [facility] 4 years ago without interval replacement. Able to flush easily at bedside without leakage. -Recommend G tube study to further assess position and for contrast extravasation -May also need CT to evaluate increase in abdominal girth/distension and assessment for ascites as could be aggravating symptoms/possible leakage at site Discussed with ED attending Code(s): K94.23 - GASTROSTOMY MALFUNCTION
--- NOTE | 2019-07-26 16:55 | PDOC ---
Documentation entered by Nydia Milton SCRIBE, acting as scribe for Jeevan Quinones MD. Jeevan Quinones MD: This documentation has been prepared by the Yoan downing Adrianna, SCRIBE, under my direction and personally reviewed by me in its entirety. I confirm that the documentation accurately reflects all work, treatment, procedures, and medical decision making performed by me. 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 Patient notes the top to her G-tube was faulty and not closing, so she was sent to the ED to have it replaced. The AR placed a temporary top on the G-tube so patient could be transported to the ER. 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 Allergies: bleomycin, nut, peanuts, rivaroxaban Surgical History: None reported Social History: [facility] resident. No toxic habits PCP: Dr. Nato Camacho Critical Care Unit Nurse: Dr. Esperanza Tello GI: [facility] ([facility]) Past History - Past Medical History Allergies/Adverse Reactions: Allergies Allergy/AdvReac Type Severity Reaction Status Date / Time bleomycin Allergy Verified 07/26/19 11:05 nut - unspecified Allergy Verified 07/26/19 11:05 peanut Allergy Verified 07/26/19 11:05 rivaroxaban Allergy Verified 07/26/19 11:05 Home Medications: Ambulatory Orders Cyclobenzaprine HCl [Flexeril -] 10 mg GT TID 07/26/19 Dexamethasone Liquid - [Decadron Liquid -] 0.5 mg GT Q8H 07/26/19 Diphenhydramine [Benadryl Oral Solution -] 25 mg GT DAILY 07/26/19 Gabapentin Liquid [Neurontin Oral Liquid -] 300 mg PO TID 07/26/19 Metoprolol Tartrate [Lopressor -] 25 mg GT BID 07/26/19 Oxycodone HCl [Oxycontin] 10 mg GT BID 07/26/19 Posaconazole [Noxafil] 60 mg GT Q8H 07/26/19 Ruxolitinib Phosphate [Jakafi] 5 mg GT BID 07/26/19 Sertraline HCl [Zoloft -] 50 mg GT DAILY 07/26/19 Sirolimus [Rapamune] 0.6 ml GT ASDIR 07/26/19 Sulfamethoxazole/Trimethoprim [Bactrim Oral Suspension -] 10 ml GT BID 07/26/19 Ursodiol 30 mg GT TID 07/26/19 Warfarin Na [Coumadin] 4 mg GT HS 07/26/19 levETIRAcetam [Keppra Oral Solution -] 500 mg GT BID 07/26/19 oxyCODONE HCL [Roxicodone -] 10 mg GT Q6H PRN 07/26/19 Cancer: Yes (hodgkins lymphoma) Cardiac Disorders: Yes (afib) CVA: Yes (hemiplegia/hemiparesis) COPD: No HTN: Yes Psychiatric Problems: Yes (high level anxiety) - Psycho Social/Smoking Cessation Hx Smoking History: Unknown if ever smoked Have you smoked in the past 12 months: No Hx Alcohol Use: No Drug/Substance Use Hx: No Review of Systems - Review of Systems Comments:: CONSTITUTIONAL: No fever, no chills, no fatigue EYES: No visual changes ENT: +Dry throat and mouth (2/2 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 No ear pain. CARDIOVASCULAR: No chest pain, no palpitations RESPIRATORY: No cough, no SOB GI: +Faulty G-tube. No abdominal pain, no nausea, no vomiting, no constipation, no diarrhea GENITOURINARY: No dysuria, no frequency, no hematuria MUSKULOSKELETAL: No back pain, no joint pain, no myalgias SKIN: No rash NEURO: No headache *Physical Exam - Vital Signs Last Vital Signs Temp Pulse Resp BP Pulse Ox 98.1 F 122 H 18 164/102 H 90 L 07/26/19 11:12 07/26/19 11:12 07/26/19 11:12 07/26/19 11:12 07/26/19 11:12 - Physical Exam 07/26/19 16:50 Patient is awake and alert, obese, in no significant distress nc, atr mmm cta rrr abd-soft, distended, nt + extensive erythroderma + g tube to epigastrium ED Treatment Course - RADIOLOGY Radiology Studies Ordered: Category Date Time Status ABDOMEN & PELVIS CT W/O CONTR [CT] Stat CT Scan 07/26/19 16:13 Ordered ABDOMEN-KUB FLAT PLATE [RAD] Stat Radiology 07/26/19 14:57 Completed ABDOMEN-KUB FLAT PLATE [RAD] Stat Radiology 07/26/19 15:48 Completed Medical Decision Making - Medical Decision Making 07/26/19 16:53 Patient is a 38-year-old female with history of severe [id number] status post 2 stem cell transplants for non-Hodgkin's lymphoma who presents with a leaking G-tube. G-tube serious reveals no evidence of obstruction or leakage. Case discussed with Dr. Skaggs of GI. She recommends a CT of abdomen pelvis to evaluate for ascites which may be responsible for the fluid leak. If ascites is noted to be significant, patient will need to be admitted for IR paracentesis. If minimal or no ascites is noted, patient can be discharged to [facility] with gauze dressing with outpatient GI follow-up. Discharge - Discharge Information Problems reviewed: Yes Clinical Impression/Diagnosis: Gastrostomy tube dysfunction Condition: Stable Disposition: [facility] FACILITY - Follow up/Referral Referrals: Nato Camacho [Primary Care Provider] - - Patient Discharge Instructions Patient Printed Discharge Instructions: How to Care for Your PEG Tube, DI for Gastrostomy: Permanent and Temporary Additional Instructions: Please return to the emergency department with any new or worsening symptoms or concerns. Please follow up with your primary care physician within 72 hours. - Post Discharge Activity
[2019-07-26 19:18] VITALS: BP 122/81; PULSE 125
== END 2019-07-26 19:54 ==
LOC: JER 10:41
DX: K94.23 Gastrostomy malfunction (principal); I48.0 Paroxysmal atrial fibrillation; Z79.01 Long term (current) use of anticoagulants; G40.909 Epilepsy, unspecified, not intractable, without status epilepticus; D89.813 Graft-versus-host disease, unspecified; R29.898 Other symptoms and signs involving the musculoskeletal system; Z85.71 Personal history of Hodgkin lymphoma; Z94.81 Bone marrow transplant status; I69.854 Hemiplegia and hemiparesis following other cerebrovascular disease affecting left non-dominant side; I69.831 Monoplegia of upper limb following other cerebrovascular disease affecting right dominant side; Z88.8 Allergy status to other drugs, medicaments and biological substances; Z91.018 Allergy to other foods
CPT/HCPCS: 74018-TC-FY; 76700-TC; 99282-25